=== PATIENT | male | born 1950 | race Caucasian/White ===

== ENCOUNTER 2018-08-23 06:15 | Day surgery (SDC) | payer MEDICARE ==
[2018-08-18 15:31] VITALS: BMI 39.2
[~2018-08-23 06:15] MED LIST: LACTATED RINGERS 1,000 ML IV SCH; SODIUM CHLORIDE 0.9% 1,000 ML IV SCH
[2018-08-23 07:04] VITALS: TEMP 98.1
[2018-08-23] MEDS ORDERED: PROPOFOL 10 MG/ML 20 ML VIAL IV ONE (07:16)
[2018-08-23] MEDS ORDERED: LIDOCAINE 1% INJ 10MG/ML (20 ML MDV) ONE (07:16)
[2018-08-23] MEDS ORDERED: IV FLUID CONTINUATION 900 ML IV ONE (08:00)
[2018-08-23] MEDS ORDERED: LIDOCAINE 1% (PF) 10 MG/ML (30 ML SDV) SQ ONE (08:02)
[2018-08-23] MEDS ORDERED: IOPAMIDOL-370 125ML BTL INJ ONE (08:17)
[2018-08-23] MEDS ORDERED: fentaNYL (PF) 50 MCG/ML 2 ML AMP IVP ONE (08:24)
[2018-08-23] MEDS ORDERED: RX INFO: IV CONTRAST WAS GIVEN 1 EACH MISC MISCELLANE PRN (08:26)
[2018-08-23] MEDS ORDERED: SODIUM CHLORIDE 0.9% 1,000 ML IV SCH (08:30)
--- NOTE | 2018-08-23 09:22 | ECHOT ---
TRANSESOPHAGEAL ECHOCARDIOGRAM DATE OF SERVICE: 08/23/2018 PERFORMING PHYSICIAN: Landon Lujan MD, [employer]. PROCEDURE PERFORMED: Transesophageal echocardiogram. INDICATION: This is a pleasant 68-year-old gentleman who was diagnosed recently with atrial fibrillation and the plan is to do a cardioversion on him with a transesophageal echocardiogram to rule out any left atrial appendage thrombus. COMPLICATION: None. LEVEL OF SEDATION: Deep sedation was performed with PASTRY COOK in the room. PROCEDURE DESCRIPTION: After obtaining an informed consent, explaining the procedure, benefits, risks, complications and alternatives, the patient was brought to the transesophageal echocardiogram suite. A pulse oximetry and heart rate monitors were attached to the patient prior to the procedure. The patient's throat was sprayed using lidocaine locally. Following that, the patient was turned into left lateral position. A bite guard was placed and the patient was then sedated with the above doses of Versed and fentanyl in divided doses. Following that, the transesophageal echocardiogram probe was advanced through the bite guard into the mid esophagus where 2-D echocardiogram images as well as color Doppler images of various cardiac structures were obtained. We evaluated the interatrial septum using 2-D echocardiogram, color Doppler, and contrast study. The procedure was completed. There were no complications. FINDINGS: The study was done quickly because the patient started desatting throughout the procedure and during the procedure and at the beginning of the procedure. The left ventricular dimension appeared to be within normal limits. Left ventricular systolic function seems to be mildly impaired with EF around 40%-45%. The right ventricle is severely dilated. The left atrium and right atrium are dilated. The left atrium and left atrial appendage appeared to have severe echo contrast and smoking. The interatrial septum appeared to be intact without any evidence of [id number] shunt by color-flow Doppler. The aortic valve is trileaflet valve and appeared to be thickened and calcified with evidence of mild aortic stenosis with peak gradient of about 22 mmHg. The mitral valve seems to be thickened and calcified as well with mild MR. There was mild tricuspid regurgitation seen. CONCLUSION: 1. Severe spontaneous echo contrast in the left atrium and left atrial appendage. 2. Mildly impaired left ventricular function with ejection fraction between 40%-45%. 3. Severely dilated right ventricle and right atrium. 4. Aortic sclerosis with mild stenosis and mild insufficiency. 5. Thickened mitral valve leaflets with mild to moderate mitral regurgitation. 6. Normal tricuspid valve and pulmonic valve. 7. No evidence of pericardial effusion. MMODL / IJN: [id number] /
--- NOTE | 2018-08-23 09:28 | CC ---
CARDIAC CATHETERIZATION REPORT DATE OF SERVICE: 08/23/2018 PERFORMING PHYSICIAN: Landon Lujan MD, [employer]. PROCEDURE PERFORMED: 1. Selective right and left coronary angiogram. 2. Left heart catheterization. INDICATION: This is a pleasant 68-year-old gentleman who was diagnosed recently with atrial fibrillation and underwent an echocardiogram which revealed cardiomyopathy with EF between 40%-45%. APPROACH: Right common femoral artery. COMPLICATION: None. LEVEL OF SEDATION: Moderate with sedation length of 22 minutes. PROCEDURE DESCRIPTION: After obtaining an informed consent, the patient was brought to the cardiac boot and shoe laborer. The right common femoral artery was cannulated using micropuncture technique, the micropuncture wire passed easily, then I placed a 6-Korean sheath in the right common femoral artery. After that, I did selective right and left coronary angiogram using JR4 and JL4 catheters. Left heart catheterization was performed using 6-Korean pigtail catheter. The procedure was completed without any complication. SELECTIVE CORONARY ANGIOGRAM: 1. The right coronary artery is a large caliber vessel and it is a dominant vessel. It is angiographically normal. It distally bifurcates into PDA and PLV branches, both are angiographically normal. 2. The left main is angiographically normal. It bifurcates into left circumflex and left anterior descending artery. 3. The left circumflex is a large caliber vessel. It is a codominant vessel. It is angiographically normal. In the midportion, it gives rise into a medium size OM branch and which seems to have mild disease only and the circumflex distally appeared to be angiographically normal. It bifurcates into PDA and PLV branches, both are angiographically normal. 4. The LAD, the proximal LAD appeared to be angiographically normal. It gives rise into a large diagonal branch which appeared to be normal. The mid LAD appeared to be normal and gives rise into second diagonal branch which seems to be angiographically normal and the LAD distally appeared to be normal as well. HEMODYNAMICS: The left ventricular end-diastolic was about 80 mmHg and there was about 30 mmHg peak to peak gradient. CONCLUSION: 1. Normal coronary angiogram. 2. Mild aortic stenosis. POSTPROCEDURE MANAGEMENT: 1. Maximize medical treatment. 2. Follow up with the patient. MMODL / IJN: [id number] /
[2018-08-23 12:56] VITALS: BP 143/91; PULSE 80
[2018-08-23 13:51] VITALS: RESP 16
== END 2018-08-23 13:30 | disposition home or self-care (01) ==
LOC: CATHCVL 06:15
PROVIDERS: ATTEND Internal Medicine Interventional Cardiology
DX: I48.0 Paroxysmal atrial fibrillation (principal); I08.0 Rheumatic disorders of both mitral and aortic valves; I25.10 Atherosclerotic heart disease of native coronary artery without angina pectoris; E78.5 Hyperlipidemia, unspecified; I71.2 Thoracic aortic aneurysm, without rupture; I11.0 Hypertensive heart disease with heart failure; E78.00 Pure hypercholesterolemia, unspecified; I50.20 Unspecified systolic (congestive) heart failure; E66.3 Overweight; R60.0 Localized edema; I70.0 Atherosclerosis of aorta; I42.9 Cardiomyopathy, unspecified; Z79.01 Long term (current) use of anticoagulants; Z82.49 Family history of ischemic heart disease and other diseases of the circulatory system; Z72.0 Tobacco use; Z79.899 Other long term (current) drug therapy; Z79.51 Long term (current) use of inhaled steroids; Z68.39 Body mass index [BMI] 39.0-39.9, adult
CPT/HCPCS: 93312; 93325; 93458; C1894; C1769 ×2; C1760; J2001 ×2; J3010; J2704; Q9967; 93320

== ENCOUNTER 2018-10-04 10:35 | Day surgery (SDC) | payer MEDICARE ==
[2018-09-27 11:41] VITALS: BMI 38.1
[~2018-10-04 10:35] MED LIST changes: -LACTATED RINGERS 1,000 ML IV SCH
[2018-10-04 11:08] VITALS: TEMP 97.5
--- NOTE | 2018-10-04 13:14 | CE ---
CARDIAC ELECTROPHYSIOLOGY REPORT DATE OF SERVICE: October 04, 2018 PERFORMING PHYSICIAN: Landon Lujan MD, heavy threader. PROCEDURE PERFORMED: Successful cardioversion of atrial fibrillation. COMPLICATION: None. LEVEL OF SEDATION: Deep sedation was performed with propofol and COMPUTER ASSISTANT in the room. PROCEDURE DESCRIPTION: After obtaining an informed consent, the patient was brought to the transesophageal echocardiogram suite. We did attempting doing the cardioversion using 200 joule and was unsuccessful and 300 joules and was unsuccessful. Finally the patient cardioverted from atrial fibrillation to normal sinus mechanism using 350 joule on third attempt. CONCLUSION: Successful cardioversion of atrial fibrillation to normal sinus mechanism using 350 joule on third attempt. MMODL / IJN: [id number] /
[2018-10-04 13:40] VITALS: RESP 20
[2018-10-04 14:16] VITALS: BP 107/67; PULSE 67
[2018-10-05] MEDS ORDERED: PROPOFOL 10 MG/ML 20 ML VIAL IV ONE (11:55)
[2018-10-05] MEDS ORDERED: LIDOCAINE 1% INJ 10MG/ML (20 ML MDV) ONE (11:55)
== END 2018-10-04 14:07 | disposition home or self-care (01) ==
LOC: CATHCVL 10:35
PROVIDERS: ATTEND Internal Medicine Interventional Cardiology
DX: I48.0 Paroxysmal atrial fibrillation (principal); Z99.89 Dependence on other enabling machines and devices; E78.5 Hyperlipidemia, unspecified; Z82.49 Family history of ischemic heart disease and other diseases of the circulatory system; Z72.0 Tobacco use; Z79.899 Other long term (current) drug therapy; E66.3 Overweight; I71.2 Thoracic aortic aneurysm, without rupture; I35.1 Nonrheumatic aortic (valve) insufficiency; Z79.51 Long term (current) use of inhaled steroids
CPT/HCPCS: 92960

== ENCOUNTER 2023-02-12 15:47 | Inpatient (IN) | payer MEDICARE ==
--- NOTE | 2023-02-12 16:37 | ED ---
SOB HPI - General Chief Complaint: Shortness of Breath Stated Complaint: Diff Breathing Time Seen by Provider: 02/12/23 16:00 Source: patient, EMS Mode of arrival: EMS Limitations: no limitations - History of Present Illness Initial Comments: Hemant is a 72-year-old male with history of CHF, COPD, chronic kidney disease. He presented to [facility] with a complaint of shortness of breath. Apparently one of his physicians had decreased his diuretic due to worsening kidney function, he reports he's been 20-30 pounds over the past month. This morning he felt as though he just couldn't breathe at all and when he arrived at [facility] his oxygen saturation was in the 50s. He was treated with BiPAP and breathing treatments as well as Lasix. He was able to be weaned down to nasal cannula but was transferred to our facility for further management admission for congestive heart failure exacerbation and COPD exacerbation. Patient denies any chest pain or palpitations. Of note the patient is an alcoholic reports daily drinking of 1 L of vodka he states that he does not have withdrawal symptoms on days that he does not drink when he is hospitalized. - Related Data Home Medications Medication Instructions Recorded Confirmed Albuterol Inhaler [Ventolin Hfa 1 - 2 puff INHALATION RT-Q4H PRN 08/18/18 02/12/23 Inhaler] Apixaban [Eliquis] 5 mg PO BID 08/18/18 02/12/23 Ipratropium-Albuterol Nebulize 3 ml INHALATION RT-QID PRN 08/18/18 02/12/23 [Duoneb 0.5 mg-3 mg/3 ml Soln] Metoprolol Tartrate 25 mg PO TID 08/18/18 02/12/23 Montelukast [Singulair] 10 mg PO DAILY 08/18/18 02/12/23 Atorvastatin [Lipitor] 80 mg PO DAILY 02/12/23 02/12/23 Budesonide [Pulmicort] 0.5 mg INHALATION RT-BID 02/12/23 02/12/23 Cyanocobalamin (Vitamin B-12) 1,000 mcg PO DAILY 02/12/23 02/12/23 [Vitamin B-12] Famotidine [Pepcid] 20 mg PO DAILY 02/12/23 02/12/23 Gabapentin [Neurontin] 100 mg PO BID@1300,2100 02/12/23 02/12/23 Gabapentin [Neurontin] 200 mg PO DAILY@0800 02/12/23 02/12/23 Potassium Chloride ER [K-Dur 20] 20 meq PO DAILY 02/12/23 02/12/23 allopurinoL [Zyloprim] 100 mg PO DAILY 02/12/23 02/12/23 Allergies Allergy/AdvReac Type Severity Reaction Status Date / Time No Known Allergies Allergy Verified 02/12/23 18:56 Review of Systems ROS Statement: Those systems with pertinent positive or pertinent negative responses have been documented in the HPI. ROS Other: All systems not noted in ROS Statement are negative. Past Medical History Past Medical History: Atrial Fibrillation, Heart Failure, COPD, Sleep Apnea/CPAP/BIPAP Additional Past Medical History / Comment(s): See Dr River H&P. CPAP use. CHF History of Any Multi-Drug Resistant Organisms: None Reported Past Surgical History: Heart Catheterization Additional Past Surgical History / Comment(s): Bilateral cataract surgery, ganglion cyst removed, EGD. Past Anesthesia/Blood Transfusion Reactions: No Reported Reaction Past Psychological History: No Psychological Hx Reported Smoking Status: Former smoker Past Alcohol Use History: Daily Past Drug Use History: None Reported - Past Family History Mother Family Medical History: Cancer Father Family Medical History: Cancer General Exam - General Exam Comments Initial Comments: Physical Exam GENERAL: Obese male, belly breathing HENT: Normocephalic, Atraumatic. Antonio red complexion, rhinophyma EYES: PERRL, EOMI PULMONARY: Tachypnic, shallow breathing, belly breathing CARDIOVASCULAR: Irregularly irregular ABDOMEN: Protuberant, non-tender SKIN: Pale : Deferred NEUROLOGIC: Patient is alert and oriented x3. Moving all extremities spontaneously MUSCULOSKELETAL: Normal extremities with adequate strength and full range of motion. No lower extremity swelling or edema. No calf tenderness. PSYCHIATRIC: Normal psychiatric evaluation. Limitations: no limitations Course Vital Signs 02/12/23 02/12/23 02/12/23 15:51 16:01 17:06 Temperature 97.6 F Pulse Rate 82 97 Respiratory 22 22 20 Rate Blood Pressure 101/84 102/84 O2 Sat by Pulse 92 L 90 L Oximetry 02/12/23 02/12/23 18:18 18:27 Temperature 97.6 F Pulse Rate 99 Respiratory 19 Rate Blood Pressure 108/90 O2 Sat by Pulse 82 L 90 L Oximetry Medical Decision Making - Medical Decision Making Pt was seen and evaluated, transfer packet from [facility] was reviewed patient appears to be a CHF exacerbation likely related to the decrease in his diuretic Patient on 6L NC oxygen saturations low 90s Repeat labs obtained, again consistent with CHF Patient care discussed with Dr Barriga of [facility] who accepts admission Was pt. sent in by a medical professional or institution (, PA, TYPIST, urgent care, hospital, or senior care...) When possible be specific @ Yes, transfer from [facility] Did you speak to anyone other than the patient for history (EMS, parent, family, police, friend...)? What history was obtained from this source @ Transferring physician Did you review nursing and triage notes (agree or disagree)? Why? @ -I reviewed and agree with nursing and triage notes Were old charts reviewed (outside hosp., previous admission, EMS record, old EKG, old radiological studies, urgent care reports/EKG's, senior care records)? Report findings @ Transfer chart reviewed Differential Diagnosis (chest pain, altered mental status, abdominal pain women, abdominal pain men, vaginal bleeding, weakness, fever, dyspnea, syncope, headache, dizziness, GI bleed, back pain, seizure, CVA, palpatations, mental health, musculoskeletal)? @ Differential Dyspnea: Coronary syndrome, arrhythmia, tamponade, asthma, COPD, pulmonary embolism, pneumonia, pneumothorax, pulmonary effusion, anaphylaxis, diabetic ketoacidosis, flailed chest, pulmonary contusion, diaphragmatic rupture, anemia, neuromuscular, this is not meant to be an all-inclusive list. EKG interpreted by me (3pts min.). @ EKG obtained as part of the shortness of breath workup EKG obtained at 1703 rate is 97 rhythm at his wide-complex irregularly irregular consistent with a [address] delay. No ST elevations or depressions no evidence of ischemia or infarction. X-rays interpreted by me (1pt min.). @ None done at this facility CT interpreted by me (1pt min.). @ -None done U/S interpreted by me (1pt. min.). @ -None done What testing was considered but not performed or refused? (CT, X-rays, U/S, labs)? Why? @ -None What meds were considered but not given or refused? Why? @ -None Did you discuss the management of the patient with other professionals (professionals i.e. , PA, TYPIST, lab, RT, psych nurse, healthcare social worker, rollway worker, teacher, sailing officer, nurse outreach case manager)? Give summary @ Admitting physician Was smoking cessation discussed for >3mins.? @ -No Was critical care preformed (if so, how long)? @ -No Were there social determinants of health that impacted care today? How? (Homelessness, low income, unemployed, alcoholism, drug addiction, transportation, low edu. Level, literacy, decrease access to med. care, group home, rehab)? @ Alcoholism Was there de-escalation of care discussed even if they declined (Discuss DNR or withdrawal of care, Hospice)? DNR status @ -No What co-morbidities impacted this encounter? (DM, HTN, Smoking, COPD, CAD, Cancer, CVA, ARF, Chemo, Hep., AIDS, mental health diagnosis, sleep apnea, morbid obesity)? @ CHF, COPD, Alcoholism Was patient admitted / discharged? Hospital course, mention meds given and route, prescriptions, significant lab abnormalities, going to OR and other pertinent info. @ Admitted Undiagnosed new problem with uncertain prognosis? @ -No Drug Therapy requiring intensive monitoring for toxicity (Heparin, Nitro, Insulin, Cardizem)? @ -No Were any procedures done? @ -No Diagnosis/symptom? @ CHF exacerbation Acute, or Chronic, or Acute on Chronic? @ -default Uncomplicated (without systemic symptoms) or Complicated (systemic symptoms)? @ -default Side effects of treatment? @ -No Exacerbation, Progression, or Severe Exacerbation? @ Exacerbation Poses a threat to life or bodily function? How? (Chest pain, [place], [place], pneumonia, PE, COPD, DKA, ARF, appy, cholecystitis, CVA, Diverticulitis, Homicidal, Suicidal, threat to staff... and all critical care pts) @ Yes - Lab Data Result diagrams: 02/12/23 16:35 02/12/23 16:35 Lab Results 02/12/23 02/12/23 02/12/23 Range/Units 16:35 16:35 16:35 WBC 6.4 (3.8-10.6) k/uL RBC 5.06 (4.30-5.90) m/uL Hgb 16.9 (13.0-17.5) gm/dL Hct 55.2 H (39.0-53.0) % MCV 109.2 H (80.0-100.0) fL MCH 33.4 (25.0-35.0) pg MCHC 30.6 L (31.0-37.0) g/dL RDW 14.3 (11.5-15.5) % Plt Count 136 L (150-450) k/uL MPV 9.8 Neutrophils % 84 % Lymphocytes % 11 % Monocytes % 4 % Eosinophils % 1 % Basophils % 0 % Neutrophils # 5.3 (1.3-7.7) k/uL Lymphocytes # 0.7 L (1.0-4.8) k/uL Monocytes # 0.2 (0-1.0) k/uL Eosinophils # 0.1 (0-0.7) k/uL Basophils # 0.0 (0-0.2) k/uL Manual Slide Review Performed Hypochromasia Marked Macrocytosis Marked A PT 12.3 H (9.0-12.0) sec INR 1.2 H (<1.2) APTT 29.9 (22.0-30.0) sec Sodium 140 (137-145) mmol/L Potassium 5.9 H (3.5-5.1) mmol/L Chloride 106 (98-107) mmol/L Carbon Dioxide 25 (22-30) mmol/L Anion Gap 9 mmol/L BUN 83 H (9-20) mg/dL Creatinine 2.93 H (0.66-1.25) mg/dL Est GFR (CKD-EPI)AfAm 24 (>60 ml/min/1.73 sqM) Est GFR (CKD-EPI)NonAf 20 (>60 ml/min/1.73 sqM) Glucose 86 (74-99) mg/dL Plasma Lactic Acid Michael (0.7-2.0) mmol/L Calcium 10.0 (8.4-10.2) mg/dL Magnesium 2.4 H (1.6-2.3) mg/dL Total Bilirubin 1.0 (0.2-1.3) mg/dL AST 27 (17-59) U/L ALT 18 (4-49) U/L Alkaline Phosphatase 94 (38-126) U/L Troponin I (0.000-0.034) ng/mL NT-Pro-B Natriuret Pep 68905 pg/mL Total Protein 7.5 (6.3-8.2) g/dL Albumin 3.9 (3.5-5.0) g/dL 02/12/23 02/12/23 Range/Units 16:35 16:35 WBC (3.8-10.6) k/uL RBC (4.30-5.90) m/uL Hgb (13.0-17.5) gm/dL Hct (39.0-53.0) % MCV (80.0-100.0) fL MCH (25.0-35.0) pg MCHC (31.0-37.0) g/dL RDW (11.5-15.5) % Plt Count (150-450) k/uL MPV Neutrophils % % Lymphocytes % % Monocytes % % Eosinophils % % Basophils % % Neutrophils # (1.3-7.7) k/uL Lymphocytes # (1.0-4.8) k/uL Monocytes # (0-1.0) k/uL Eosinophils # (0-0.7) k/uL Basophils # (0-0.2) k/uL Manual Slide Review Hypochromasia Macrocytosis PT (9.0-12.0) sec INR (<1.2) APTT (22.0-30.0) sec Sodium (137-145) mmol/L Potassium (3.5-5.1) mmol/L Chloride (98-107) mmol/L Carbon Dioxide (22-30) mmol/L Anion Gap mmol/L BUN (9-20) mg/dL Creatinine (0.66-1.25) mg/dL Est GFR (CKD-EPI)AfAm (>60 ml/min/1.73 sqM) Est GFR (CKD-EPI)NonAf (>60 ml/min/1.73 sqM) Glucose (74-99) mg/dL Plasma Lactic Acid Michael 0.8 (0.7-2.0) mmol/L Calcium (8.4-10.2) mg/dL Magnesium (1.6-2.3) mg/dL Total Bilirubin (0.2-1.3) mg/dL AST (17-59) U/L ALT (4-49) U/L Alkaline Phosphatase (38-126) U/L Troponin I <0.012 (0.000-0.034) ng/mL NT-Pro-B Natriuret Pep pg/mL Total Protein (6.3-8.2) g/dL Albumin (3.5-5.0) g/dL Disposition Clinical Impression: CHF (congestive heart failure), Hypoxia, COPD (chronic obstructive pulmonary disease), Morbid obesity, Alcohol abuse Disposition: ADMITTED IP TO THIS HOSP Condition: Serious Is patient prescribed a controlled substance at d/c from ED?: No
[2023-02-12 17:10] LABS: INR 1.2 (<1.2); Partial Thromboplastin Time 29.9 sec (22.0-30.0); Prothrombin Time 12.3 sec (9.0-12.0)
[2023-02-12 17:14] LABS: ALT 18 U/L (4-49); AST 27 U/L (17-59); African American GFR (CKD) 24 (>60 ml/min/1.73 sqM); Albumin 3.9 g/dL (3.5-5.0); Alkaline Phosphatase 94 U/L (38-126); Anion Gap 9 mmol/L; Blood Urea Nitrogen 83 mg/dL (9-20); Carbon Dioxide 25 mmol/L (22-30); Chloride 106 mmol/L (98-107); Glucose 86 mg/dL (74-99); Magnesium 2.4 mg/dL (1.6-2.3); Non-African American GFR(CKD) 20 (>60 ml/min/1.73 sqM); Sodium 140 mmol/L (137-145); Total Protein 7.5 g/dL (6.3-8.2)
[2023-02-12 17:16] LABS: Basophils % (A) 0 %; Eosinophils # (A) 0.1 k/uL (0-0.7); Eosinophils % (A) 1 %; HGB 16.9 gm/dL (13.0-17.5); Hypochromasia Marked; Lymphocytes # (A) 0.7 k/uL (1.0-4.8); Lymphocytes % (A) 11 %; MCH 33.4 pg (25.0-35.0); MCHC 30.6 g/dL (31.0-37.0); MCV 109.2 fL (80.0-100.0); Macrocytosis Marked; Mean Platelet Volume 9.8; Monocytes # (A) 0.2 k/uL (0-1.0); Monocytes % (A) 4 %; Neutrophils # (A) 5.3 k/uL (1.3-7.7); Neutrophils % (A) 84 %; Platelet Count 136 k/uL (150-450); RBC 5.06 m/uL (4.30-5.90); RDW 14.3 % (11.5-15.5); WBC 6.4 k/uL (3.8-10.6)
[2023-02-12 17:17] LABS: HCT 55.2 % (39.0-53.0); Potassium 5.9 mmol/L (3.5-5.1)
[2023-02-12 17:22] LABS: NT-Pro-B-Type Natriuretic Pept 16100 pg/mL
[2023-02-12] MEDS ORDERED: ACETAMINOPHEN TAB 325 MG TAB PO PRN (20:31)
[2023-02-12] MEDS ORDERED: LORazepam 2 MG/ML INJ IV PRN (20:33)
[2023-02-12] MEDS: LORazepam 2 MG/ML INJ IV PRN (21:10)
[2023-02-12] MEDS: METOPROLOL TARTRATE 25 MG TAB PO SCH (21:10)
[2023-02-12] MEDS: APIXABAN 5 MG TAB PO SCH (21:10)
[2023-02-12] MEDS: IPRATROPIUM-ALBUTEROL 3 ML NEB INHALATION PRN (21:12)
[2023-02-12] MEDS: GABAPENTIN 100 MG CAP PO SCH (21:39)
[2023-02-12] MEDS ORDERED: DEXTROSE 50% SYRINGE 50 ML IVP STA (22:03)
[2023-02-12] MEDS ORDERED: SODIUM POLYSTYRENE SULFONATE 15 GM/60 ML BOTTLE PO ONE (22:04)
[2023-02-12] MEDS ORDERED: CALCIUM GLUCONATE IN NACL 1 GM in SALINE 1 100ML.BAG IVPB ONE (22:15)
[2023-02-12] MEDS ORDERED: INSULIN REGULAR 100 UNIT/ML VIAL (IV) IV ONE (22:15)
[2023-02-12 23:04] LABS: Allen Test Performed? Yes
[2023-02-12 23:09] LABS: ABG HCO3 27 mmol/L (21-25); ABG PCO2 73 mmHg (35-45); ABG PH 7.17 (7.35-7.45); ABG PO2 111 mmHg (83-108)
[2023-02-12 23:10] LABS: ABG Oxygen Saturation 97.6 % (94-97); ABG TCO2 29 mmol/L (19-24)
[2023-02-12 23:38] LABS: Glucose,Whole Blood 166 mg/dL (70-110)
[2023-02-12] MEDS ORDERED: methylPREDNISolone SOD SUCCI 125 MG/2 ML VIAL IV STA (23:51)
[2023-02-13 00:03] LABS: Glucose,Whole Blood 182 mg/dL (70-110)
[2023-02-13] MEDS: FUROSEMIDE 10 MG/ML 4 ML VIAL IV SCH ×2 (00:12→09:04)
--- NOTE | 2023-02-13 00:33 | XR ---
EXAM: XR Chest, 1 View CLINICAL HISTORY: ITS.REASON XR Reason: Resp distress TECHNIQUE: Frontal view of the chest. COMPARISON: No relevant prior studies available. FINDINGS: Lungs: Vascular congestion. Pleural space: Unremarkable. No pneumothorax. No pleural effusions. Heart: Moderate enlargement of the cardiac silhouette. Mediastinum: Unremarkable. Bones/joints: No acute osseous abnormalities. IMPRESSION: 1. Moderate enlargement of the cardiac silhouette. 2. Vascular congestion.
[2023-02-13] MEDS ORDERED: FUROSEMIDE 10 MG/ML 4 ML VIAL IV STA (00:52)
[2023-02-13 02:09] LABS: ABG Base Excess -1.4 mmol/L; ABG HCO3 27 mmol/L (21-25); ABG Oxygen Saturation 92.8 % (94-97); ABG PCO2 70 mmHg (35-45); ABG PO2 78 mmHg (83-108); ABG TCO2 29 mmol/L (19-24); Allen Test Performed? Yes
[2023-02-13 02:12] LABS: ABG PH 7.19 (7.35-7.45)
[2023-02-13] MEDS: LORazepam 2 MG/ML INJ IV PRN ×2 (02:26→08:03)
--- NOTE | 2023-02-13 02:32 | P.EN ---
A team note Activated at 2329 on 02/12. The patient was seen and evaluated at the bedside. The chart was reviewed and the case was discussed with the RN. The patient with an extensive PMH including COPD, CHF, chronic kidney disease was transferred from [facility] where the patient had presented with shortness of breath. The patient was noted to be in fluid overload and was treated with Lasix and started on BiPAP and was subsequently weaned off to nasal cannula oxygen upon transfer. Upon arrival at the floor, the patient was noted to be hypoxic and lethargic. ABG was obtained and reviewed which revealed a pCO2 73, a pH 7.17, and pO2 111. ProBNP was 16,100. Vitals at the time of evaluation were BP 115/90, SpO2 96% on BiPAP, and pulse 84. The patient was lethargic at the time of interview and was not answering most questions appropriately. General: Somewhat ill-appearing male, on BiPAP, appears stated age, morbidly obese HEENT: NC/AT, anicteric sclerae, moist conjunctiva, no lid-lag, PERRLA Cardiovascular: S1/S2 wnl, no murmurs, rubs, or gallops Lungs: Poor air entry bilaterally with scattered coarse breath sounds, no accessory muscle use Abdominal: Soft, non-tender, non-distended, no guarding, rebound, or rigidity Skin: Warm, dry Extremities: 1+ bilateral lower extremity pitting edema without contractures Psychiatric:Unable to assess Neuro: Lethargic, opening eyes and following basic directions but not answering questions appropriately, moving all extremities Assessment/Plan Acute hypoxic and hypercapnic respiratory failure, likely multifactorial secondary to acute COPD and CHF exacerbations -Additional dose of 40 mg IVP lasix ordered -Ordered Solu-medrol 80 mg IVP once -C/w Bipap -The case was previously discussed with scale balancer by RN and the patient was accepted to MICU -Patient is full-code as per RN and her discussion with the patient's -Repeat ABG and consider intubation if mentation or respiratory status doesn't improve Total time spent providing critical care for this patient: 35 minutes
[2023-02-13 06:56] LABS: HGB 16.5 gm/dL (13.0-17.5); Hypochromasia Marked; MCHC 29.9 g/dL (31.0-37.0); MCV 110.3 fL (80.0-100.0); Macrocytosis Marked; Mean Platelet Volume 9.4; RBC 4.99 m/uL (4.30-5.90); RDW 14.1 % (11.5-15.5); WBC 7.8 k/uL (3.8-10.6)
[2023-02-13 06:57] LABS: HCT 55.1 % (39.0-53.0)
[2023-02-13 07:17] LABS: African American GFR (CKD) 24 (>60 ml/min/1.73 sqM); Anion Gap 11 mmol/L; Blood Urea Nitrogen 88 mg/dL (9-20); Calcium 10.4 mg/dL (8.4-10.2); Carbon Dioxide 21 mmol/L (22-30); Chloride 110 mmol/L (98-107); Glucose 146 mg/dL (74-99); Non-African American GFR(CKD) 21 (>60 ml/min/1.73 sqM); Sodium 142 mmol/L (137-145)
[2023-02-13] MEDS: BUDESONIDE 0.5 MG/2 ML NEBU INHALATION SCH ×2 (07:43→20:03)
[2023-02-13] MEDS: IPRATROPIUM-ALBUTEROL 3 ML NEB INHALATION PRN ×4 (07:43→20:03)
--- NOTE | 2023-02-13 08:27 | P.CNPUL ---
History of Present Illness Consult date: 02/13/23 Reason for consult: dyspnea History of present illness: This is a 72-year-old male patient, morbidly obese, known history of COPD, congestion heart failure, chronic atrial fibrillation and chronic kidney disease, presented to us from [facility]. The patient presented there with increased shortness of breath. Apparently the patient has not been taking his diuretics this has been discontinued due to concerns of his renal dysfunction. The patient went to [facility] and subsequently transferred to us, admitted to the medical floor, he was found to be quite lethargic in significant respiratory distress. He was placed on a BiPAP of 16/6 cm of water and FiO2 of 40%. The blood gas prior to that showed a pH of 7.17 wi th a pCO2 of 73 and pO2 of 111. Subsequent blood gas from 2 AM showed a pH of 7.19 with a pCO2 of 70 and pO2 of 78. Chest x-ray shows cardiac megaly, pulmonary vessel congestion and no clear airspace disease or pulmonary infiltrates noted. The patient has quite encephalopathic and lethargic at this point in time. He is status with the BiPAP. He is generating a tidal volume of 462 with a respiratory rate of 23. Minute ventilation is around 10.8. His blood work shows a WD count of 7.8 with a hemoglobin 16.5 and a platelet count of 136. BUN is at 28 with a creatinine of 2.8 and the sodium levels of 142. Potassium level was as high as 6.4, treated with potassium cocktail and the subsequent level today is at 6.0. Calcium level is mildly elevated at 10.4. LFTs are normal, proBNP level is 16,100 and the troponins are negative. EKG showing a atrial fibrillation rhythm with a right bundle branch block pattern. Noted the patient has been maintained on anticoagulation with Eliquis on outpatient basis and I'm assuming this was given to him for chronic atrial fibrillation. He does have asymmetric lower extremity edema worse on the left. He has a Ogrdon catheter in place. He is also known to be alcoholic. He has stated that he really paralyzed on a daily basis. He was also stated that he goes into withdrawal was while not drinking for few days. Overnight, the patient was given IV Lasix. He is still on Lasix 40 mg IV every 8 hours. He is producing adequate amount of urine output. Urine output has been -1.4 L over the past 8 hours. Review of Systems ROS unobtainable: due to mental status Past Medical History Past Medical History: Atrial Fibrillation, Heart Failure, COPD, GI Bleed, Renal Disease, Sleep Apnea/CPAP/BIPAP Additional Past Medical History / Comment(s): Hiatal hernia, cateracts, diverticulosis, CPAP use, Falls, History of Any Multi-Drug Resistant Organisms: None Reported Past Surgical History: Heart Catheterization Additional Past Surgical History / Comment(s): Bilateral cataract surgery, ganglion cyst removed, EGD/colonoscopy, cardioversion Past Anesthesia/Blood Transfusion Reactions: No Reported Reaction Past Psychological History: No Psychological Hx Reported Smoking Status: Former smoker Past Alcohol Use History: Daily Additional Past Alcohol Use History / Comment(s): Quit just over 1 yr ago, smoked 40 yrs, 1PPD or more. Past Drug Use History: None Reported - Past Family History Mother Family Medical History: Cancer Father Family Medical History: Cancer, Myocardial Infarction ([place]) Medications and Allergies Home Medications Medication Instructions Recorded Confirmed Type Albuterol Inhaler [Ventolin Hfa 1 - 2 puff INHALATION RT-Q4H PRN 08/18/18 02/12/23 History Inhaler] Apixaban [Eliquis] 5 mg PO BID 08/18/18 02/12/23 History Ipratropium-Albuterol Nebulize 3 ml INHALATION RT-QID PRN 08/18/18 02/12/23 History [Duoneb 0.5 mg-3 mg/3 ml Soln] Metoprolol Tartrate 25 mg PO TID 08/18/18 02/12/23 History Montelukast [Singulair] 10 mg PO DAILY 08/18/18 02/12/23 History Atorvastatin [Lipitor] 80 mg PO DAILY 02/12/23 02/12/23 History Budesonide [Pulmicort] 0.5 mg INHALATION RT-BID 02/12/23 02/12/23 History Cyanocobalamin (Vitamin B-12) 1,000 mcg PO DAILY 02/12/23 02/12/23 History [Vitamin B-12] Famotidine [Pepcid] 20 mg PO DAILY 02/12/23 02/12/23 History Gabapentin [Neurontin] 100 mg PO BID@1300,2100 02/12/23 02/12/23 History Gabapentin [Neurontin] 200 mg PO DAILY@00 02/12/23 02/12/23 History Potassium Chloride ER [K-Dur 20] 20 meq PO DAILY 02/12/23 02/12/23 History allopurinoL [Zyloprim] 100 mg PO DAILY 02/12/23 02/12/23 History Allergies Allergy/AdvReac Type Severity Reaction Status Date / Time No Known Allergies Allergy Verified 02/12/23 18:56 Physical Exam Vitals: Vital Signs Temp Pulse Pulse Resp BP BP Pulse Ox 02/13/23 08:03 71 02/13/23 08:00 96.4 F L 78 25 H 103/75 94 L 02/13/23 07:43 68 02/13/23 07:00 66 20 103/75 94 L 02/13/23 06:00 80 27 H 129/97 85 L 02/13/23 05:00 76 23 107/96 89 L 02/13/23 04:00 97.3 F L 80 23 108/84 91 L 02/13/23 03:56 02/13/23 03:00 85 26 H 118/91 92 L 02/13/23 02:00 94 12 110/85 90 L 02/13/23 01:00 79 14 107/85 81 L 02/13/23 00:05 02/12/23 23:02 22 97 02/12/23 23:01 25 H 88 L 02/12/23 22:13 02/12/23 22:12 02/12/23 21:33 80 02/12/23 21:15 88 02/12/23 20:00 97.7 F 90 30 H 116/79 86 L 02/12/23 18:45 97.9 F 109 H 24 96/60 90 L 02/12/23 18:27 90 L 02/12/23 18:18 97.6 F 99 19 108/90 82 L 02/12/23 17:06 97 20 102/84 90 L 02/12/23 16:01 22 02/12/23 15:51 97.6 F 82 22 101/84 92 L FiO2 02/13/23 08:03 02/13/23 08:00 40 02/13/23 07:43 40 02/13/23 07:00 02/13/23 06:00 02/13/23 05:00 02/13/23 04:00 40 02/13/23 03:56 40 02/13/23 03:00 02/13/23 02:00 40 02/13/23 01:00 02/13/23 00:05 40 02/12/23 23:02 60 02/12/23 23:01 02/12/23 22:13 60 02/12/23 22:12 60 02/12/23 21:33 02/12/23 21:15 02/12/23 20:00 02/12/23 18:45 02/12/23 18:27 02/12/23 18:18 02/12/23 17:06 02/12/23 16:01 02/12/23 15:51 Intake and Output 02/12/23 02/13/23 02/13/23 22:59 06:59 14:59 Output Total 350 1070 145 Balance -350 -1070 -145 Output: Urine 350 1070 145 Other: Voiding Method External Catheter Indwelling Catheter # Bowel Movements 2 Weight 145.15 kg 143.8 kg The patient is currently encephalopathic, lethargic, there is an obvious component of CO2 narcosis. Nevertheless, is calm and comfortable and symptoms with a BiPAP at this point in time and is tolerating the treatment fairly well. He is morbidly obese. Head exam was generally normal. There was no scleral icterus or corneal arcus. Mucous membranes were moist. Neck is short and the patient has significant crowding of the posterior oropharynx, poor dental condition, crowding of the posterior oropharynx with a Mallampati class IV Lungs diminished breath sounds bilaterally and the patient diffuse expiratory wheezes throughout the lung dumont Heart sounds are irregular, consistent with atrial fibrillation, no significant murmurs appreciated Abdomen is distended and soft. No direct tenderness. No rebound tenderness. No guarding. Lower extremities are showed +1 edema, asymmetric slightly worse on the left, no open wounds or sores. No cyanosis or clubbing. Examination of the skin revealed no evidence of significant rashes, suspicious appearing nevi or other concerning lesions. Neurologically the patient is encephalopathic, moving all 4 extremities and g rimacing to painful stimulation. Unable to answer questions appropriately at this point in time. He was unable reactive to light. No facial asymmetry. Results - Laboratory Findings CBC and BMP: 02/13/23 06:44 02/13/23 06:44 ABG ABG pH 7.19 (7.35-7.45) L* 02/13/23 02:02 ABG pCO2 70 mmHg (35-45) H 02/13/23 02:02 ABG pO2 78 mmHg (83-108) L 02/13/23 02:02 ABG O2 Saturation 92.8 % (94-97) L 02/13/23 02:02 PT/INR, D-dimer PT 12.3 sec (9.0-12.0) H 02/12/23 16:35 INR 1.2 (<1.2) H 02/12/23 16:35 Abnormal lab findings: Abnormal Labs 02/12/23 02/12/23 02/12/23 16:35 16:35 16:35 Hct 55.2 H MCV 109.2 H MCHC 30.6 L Plt Count 136 L Lymphocytes # 0.7 L Macrocytosis Marked A PT 12.3 H INR 1.2 H ABG pH ABG pCO2 ABG pO2 ABG HCO3 ABG Total CO2 ABG O2 Saturation Potassium 5.9 H Chloride Carbon Dioxide BUN 83 H Creatinine 2.93 H Glucose POC Glucose (mg/dL) Calcium Magnesium 2.4 H 02/12/23 02/12/23 02/12/23 21:13 22:45 23:28 Hct MCV MCHC Plt Count Lymphocytes # Macrocytosis PT INR ABG pH 7.17 L* ABG pCO2 73 H* ABG pO2 111 H ABG HCO3 27 H ABG Total CO2 29 H ABG O2 Saturation 97.6 H Potassium 6.4 H* Chloride Carbon Dioxide BUN Creatinine Glucose POC Glucose (mg/dL) 166 H Calcium Magnesium 02/13/23 02/13/23 02/13/23 00:02 02:02 02:03 Hct MCV MCHC Plt Count Lymphocytes # Macrocytosis PT INR ABG pH 7.19 L* ABG pCO2 70 H ABG pO2 78 L ABG HCO3 27 H ABG Total CO2 29 H ABG O2 Saturation 92.8 L Potassium 5.7 H Chloride Carbon Dioxide BUN Creatinine Glucose POC Glucose (mg/dL) 182 H Calcium Magnesium 02/13/23 02/13/23 06:44 06:44 Hct 55.1 H MCV 110.3 H MCHC 29.9 L Plt Count Lymphocytes # Macrocytosis Marked A PT INR ABG pH ABG pCO2 ABG pO2 ABG HCO3 ABG Total CO2 ABG O2 Saturation Potassium 6.0 H Chloride 110 H Carbon Dioxide 21 L BUN 88 H Creatinine 2.89 H Glucose 146 H POC Glucose (mg/dL) Calcium 10.4 H Magnesium - Diagnostic Findings Chest x-ray: image reviewed Assessment and Plan Plan: Acute on chronic hypoxic/hypercapnic respiratory failure due to COPD/CHF exacerbation. The patient is currently on a BiPAP. Blood gases showing acute on top of chronic hypercapnic respiratory failure Shortness of breath secondary to above COPD, chronic, severity is not known. Suspect chronic hypoxemia related to COPD CHF with elevated proBNP level. Consider possibility of diastolic heart failure, consider possibility of a right-sided heart failure due to chronic COPD features of obstructive sleep apnea Morbid obesity Chronic A. fib, rate is controlled for now and the patient is on anti- coagulation with Eliquis. Chronic kidney disease Acute hyperkalemia, treated and the potassium levels at 6.0 Alcoholism Chronic lower extremity edema, asymmetric Features of obstructive sleep apnea Hyperlipidemia Alcoholism Plan Continue BiPAP support for now May use Precedex if there is significant agitation and will avoid Ativan if possible and use Precedex for any signs of delirium tremens Continue BiPAP for now the same setting This was an arterial line and obtain a follow-up blood gases Give the patient 2 A of sodium bicarb and this will help also with his underlying hyperkalemia Continue DuoNeb about treatments [id number] Continue Pulmicort Respules IV Solu-Medrol 60 mg every 6 hours IV Lasix 40 mg every 8 hours Keep the Gordon catheter in place and monitor urine output Obtain ultrasound the kidneys Obtain Doppler of the lower extremities No need for antibiotic coverage at this point in time Obtain echocardiogram Cardiology consultation Unable to take any oral medications for now. We'll switch this patient on IV heparin if he is unable to take his anticoagulation We'll establish a triple-lumen catheter Condition is critical and high risk for intubation mechanical ventilation based on the above-mentioned comorbidities. Add thiamine 100 mg IV every 24 hours the form of IV piggybacks
[2023-02-13] MEDS ORDERED: SODIUM BICARB 8.4% 50 ML SYR (1 MEQ/ML) IV STA ×2 (08:30→08:45)
[2023-02-13 08:46] LABS: Platelet Count 97 k/uL (150-450)
[2023-02-13] MEDS: DEXMEDETOMIDINE/0.9% NACL(PMX) 400 MCG in EMPTY BAG 1 BAG IV SCH ×3 (08:49→22:12)
[2023-02-13] MEDS ORDERED: THIAMINE 100 MG TAB PO SCH (09:00)
[2023-02-13] MEDS ORDERED: FOLIC ACID 1 MG TAB PO SCH (09:00)
--- NOTE | 2023-02-13 09:24 | US ---
EXAMINATION TYPE: US kidneys/renal and bladder DATE OF EXAM: 02/13/2023 COMPARISON: NONE CLINICAL INDICATION: Male, 72 years old with history of CKD; Uncooperative ICU patient, does not foll ow commands, does not hold still, pulling at techs hand during exam EXAM MEASUREMENTS: Right Kidney: 12.7 x 5.5 x 6.7 cm Left Kidney: 13.1 x 5.4 x 7.4 cm Right Kidney: probable small cysts, largest = 2.4 x 2.9 x 2.7cm Left Kidney: limited view due to reasons stated above, cyst = 3.6 x 3.0 x 2.6cm Bladder: not distended There is no evidence for hydronephrosis at this point in time. Cortical medullary differentiation is maintained. No nephrolithiasis is seen. Left renal cyst measuring up to 3.6 cm. Small probable cysts in the right kidney measuring up to 2.9 cm per The urinary bladder is nondistended which limits eval uation. Ascites demonstrated. IMPRESSION: Limited examination due to patient condition. 1. No hydronephrosis or nephrolithiasis definitively visualized. 2. Bilateral probable renal cysts. 3. Ascites.
[2023-02-13] MEDS: GABAPENTIN 100 MG CAP PO SCH ×3 (09:31→21:24)
[2023-02-13] MEDS: allopurinoL 100 MG TAB PO SCH (09:31)
[2023-02-13] MEDS: ATORVASTATIN 80 MG TAB PO SCH (09:32)
[2023-02-13] MEDS: APIXABAN 5 MG TAB PO SCH ×2 (09:32→21:23)
[2023-02-13] MEDS: METOPROLOL TARTRATE 25 MG TAB PO SCH (09:32)
[2023-02-13] MEDS: MONTELUKAST 10 MG TAB PO SCH (09:32)
[2023-02-13] MEDS: FAMOTIDINE 20 MG TAB PO SCH (09:32)
[2023-02-13] MEDS: MULTIVITAMINS, THERA 1 EACH TAB PO SCH (09:33)
--- NOTE | 2023-02-13 09:35 | US ---
EXAMINATION TYPE: US venous doppler duplex LE DATE OF EXAM: 02/13/2023 9:14 AM COMPARISON: NONE CLINICAL INDICATION: Male, 72 years old with history of DVT; CHF, swollen legs, uncooperative patient , would not hold still and fighting tech during exam SIDE PERFORMED: Bilateral TECHNIQUE: The lower extremity deep venous system is examined utilizing real time linear array sonog francine with graded compression, doppler sonography and color-flow sonography. VESSELS IMAGED: Common Femoral Vein Deep Femoral Vein Greater Saphenous Vein * Femoral Vein Popliteal Vein Small Saphenous Vein * Proximal Calf Veins (* superficial vessels) Grayscale, color doppler, spectral doppler imaging performed of the deep veins of the lower extremiti es. There is normal flow, compressibility, vascular waveforms. Right Leg: Negative for DVT Left Leg: Negative for DVT IMPRESSION: No deep venous thrombosis of the bilateral lower extremities.
[2023-02-13] MEDS: THIAMINE 100 MG in SODIUM CHLORIDE 0.9% 50 ML IVPB SCH (09:45)
--- NOTE | 2023-02-13 10:15 | P.PCN ---
Date of Procedure: 02/13/23 Preoperative Diagnosis: Acute CHF, hypotension, chronic atrial fibrillation Postoperative Diagnosis: Same Procedure(s) Performed: Central line and arterial line Pathology: none sent Condition: critical Disposition: ICU Operative Findings: Indication: Hemodynamic monitoring. A time-out was completed verifying correct patient, procedure, site, positioning, and implant(s) or special equipment if applicable. Allens test was performed to ensure adequate perfusion. The patients right wrist was prepped and draped in sterile fashion. 1% Lidocaine was used to anesthetize the area. An 18G Arrow arterial line was introduced into the right radial artery. The catheter was threaded over the guide wire and the needle was removed with appropriate pulsatile blood return. Blood loss was minimal. The catheter was then sutured in place to the skin and a sterile dressing applied. Perfusion to the extremity distal to the point of catheter insertion was checked and found to be adequate. The patient tolerated the procedure well and there were no complications. Indication: Hemodynamic monitoring/Intravenous access. A time-out was completed verifying correct patient, procedure, site, positioning, and implant(s) or special equipment if applicable. The patient was placed in a dependent position appropriate for central line placement based on the vein to be cannulated. The patients right groin was prepped and draped in sterile fashion. 1% Lidocaine was used to anesthetize the surrounding skin area. A triple lumen 9F Cordis catheter was introduced into the right femoral vein using Seldinger technique. The catheter was threaded smoothly over the guide wire and appropriate blood return was obtained. Each lumen of the catheter was evacuated of air and flushed with sterile saline. The catheter was then sutured in place to the skin and a sterile dressing applied. Perfusion to the extremity distal to the point of catheter insertion was checked and found to be adequate. The patient tolerated the procedure well and there were no complications.
--- NOTE | 2023-02-13 10:20 | CONS ---
CONSULTATION HISTORY OF PRESENT ILLNESS: Hemant is a 72-year-old gentleman with morbid obesity, COPD, chronic atrial fibrillation, renal insufficiency, and congestive heart failure who presented to [facility] with symptoms of progressively worsening shortness of breath. The patient was treated with diuretics, and there was worsening renal function due to which the diuretics were stopped. He was initially admitted to the medical floor, became lethargic and developed respiratory distress following which he is transferred to ICU where he is currently on a bypass. He is somewhat obtunded and not responding to questions this morning and he is not able to swallow food safely. His BNP was elevated at 1600. EKG revealed atrial fibrillation with right bundle branch block. His blood gases show respiratory acidosis. Chest x-ray showed cardiomegaly with pulmonary congestion. The patient has encephalopathy. He is currently on Lasix IV 40 mg q.8. BUN and creatinine are elevated at 88 and 2.89. I am going to consult Nephrology for further management of the elevated BUN and creatinine. The patient has a potassium of 6 this morning. He received Kayexalate yesterday. We probably have to repeat another dose of Kayexalate today. PAST MEDICAL HISTORY: Significant for permanent atrial fibrillation, chronic congestive heart failure, permanent atrial fibrillation, morbid obesity, and moderate LV dysfunction with mild to moderate mitral regurgitation. MEDICATIONS: Include, 1. Zyloprim. 2. K-Dur. 3. Singulair. 4. Neurontin. 5. Pepcid. 6. Ventolin. 7. Lipitor. 8. Eliquis. ALLERGIES: As charted. FAMILY HISTORY: Negative for premature coronary artery disease. SOCIAL HISTORY: Negative for smoking, EtOH abuse, or drug abuse. REVIEW OF SYSTEMS: review of systems has been performed, pertinents are as documented. PHYSICAL EXAMINATION: GENERAL: Comfortable at rest. VITAL SIGNS: Stable. CHEST: Diminished air entry at the bases. HEART: First and second heart sounds. Irregular rhythm. Systolic murmur at the apex. ABDOMEN: Soft. EXTREMITIES: Bilateral pitting edema. LABORATORY DATA: Labs show hemoglobin of 16.5, platelet count is 97. Potassium is 6, BUN is 88, creatinine is 2.89. Blood gases reveal that the patient is in respiratory acidosis. BNP is elevated. EKG shows atrial fibrillation with right bundle branch block. CONCLUSIONS: 1. Acute exacerbation of chronic systolic heart failure. 2. Acute on chronic renal failure. 3. Permanent atrial fibrillation. 4. Encephalopathy. PLAN: We will continue with supportive care. Prognosis guarded. We will start the patient on IV heparin if we have to if the patient is not able to take the Eliquis. MARISA / TISHA: [id number] /
--- NOTE | 2023-02-13 11:24 | P.NPCON ---
History of Present Illness - Reason for Consult acute renal failure - History of Present Illness Patient is a 72-year-old male with history of COPD, chronic A. fib, CHF and chronic kidney disease. Baseline renal function not known. Patient is admitted to the hospital with complaints of increased shortness of breath. It appears that diuretics were recently decreased as outpatient due to worsening renal function. Serum creatinine this admission was 2.9 mg/dL and it is 2.8 today. Patient is maintained on BiPAP for acute hypoxic respiratory failure. Urine output at about 100-150 ML per hour. Blood pressure has been on the lower side with systolic around 102-10 1 mmHg. It was 96/60 on initial admission. No NSAIDs or OANH inhibitor as noted on home med list. Currently maintained on Lasix 40 mg IV every 8 hours. Echocardiogram in 2019 showed ejection fraction of 40-45%. Potassium has been 5.7-6 mEq/L. Blood sugar at 182-146. Ultrasound shows no evidence of hydronephrosis. Patient is voiding on his own. Review of Systems As per HPI Past Medical History Past Medical History: Atrial Fibrillation, Heart Failure, COPD, GI Bleed, Renal Disease, Sleep Apnea/CPAP/BIPAP Additional Past Medical History / Comment(s): Hiatal hernia, cateracts, diverticulosis, CPAP use, Falls, History of Any Multi-Drug Resistant Organisms: None Reported Past Surgical History: Heart Catheterization Additional Past Surgical History / Comment(s): Bilateral cataract surgery, ganglion cyst removed, EGD/colonoscopy, cardioversion Past Anesthesia/Blood Transfusion Reactions: No Reported Reaction Past Psychological History: No Psychological Hx Reported Smoking Status: Former smoker Past Alcohol Use History: Daily Additional Past Alcohol Use History / Comment(s): Quit just over 1 yr ago, smoked 40 yrs, 1PPD or more. Past Drug Use History: None Reported - Past Family History Mother Family Medical History: Cancer Father Family Medical History: Cancer, Myocardial Infarction ([place]) Medications and Allergies Home Medications Medication Instructions Recorded Confirmed Type Albuterol Inhaler [Ventolin Hfa 1 - 2 puff INHALATION RT-Q4H PRN 08/18/18 02/12/23 History Inhaler] Apixaban [Eliquis] 5 mg PO BID 08/18/18 02/12/23 History Ipratropium-Albuterol Nebulize 3 ml INHALATION RT-QID PRN 08/18/18 02/12/23 History [Duoneb 0.5 mg-3 mg/3 ml Soln] Metoprolol Tartrate 25 mg PO TID 08/18/18 02/12/23 History Montelukast [Singulair] 10 mg PO DAILY 08/18/18 02/12/23 History Atorvastatin [Lipitor] 80 mg PO DAILY 02/12/23 02/12/23 History Budesonide [Pulmicort] 0.5 mg INHALATION RT-BID 02/12/23 02/12/23 History Cyanocobalamin (Vitamin B-12) 1,000 mcg PO DAILY 02/12/23 02/12/23 History [Vitamin B-12] Famotidine [Pepcid] 20 mg PO DAILY 02/12/23 02/12/23 History Gabapentin [Neurontin] 100 mg PO BID@1300,2100 02/12/23 02/12/23 History Gabapentin [Neurontin] 200 mg PO DAILY@0800 02/12/23 02/12/23 History Potassium Chloride ER [K-Dur 20] 20 meq PO DAILY 02/12/23 02/12/23 History allopurinoL [Zyloprim] 100 mg PO DAILY 02/12/23 02/12/23 History Allergies Allergy/AdvReac Type Severity Reaction Status Date / Time No Known Allergies Allergy Verified 02/12/23 18:56 Physical Exam Vitals: Vital Signs Temp Pulse Pulse Resp BP BP Pulse Ox 02/13/23 09:00 86 26 H 106/83 96 02/13/23 08:03 71 02/13/23 08:00 96.4 F L 78 25 H 103/75 94 L 02/13/23 07:43 68 02/13/23 07:00 66 20 103/75 94 L 02/13/23 06:00 80 27 H 129/97 85 L 02/13/23 05:00 76 23 107/96 89 L 02/13/23 04:00 97.3 F L 80 23 108/84 91 L 02/13/23 03:56 02/13/23 03:00 85 26 H 118/91 92 L 02/13/23 02:00 94 12 110/85 90 L 02/13/23 01:00 79 14 107/85 81 L 02/13/23 00:05 02/12/23 23:02 22 97 02/12/23 23:01 25 H 88 L 02/12/23 22:13 02/12/23 22:12 02/12/23 21:33 80 02/12/23 21:15 88 02/12/23 20:00 97.7 F 90 30 H 116/79 86 L 02/12/23 18:45 97.9 F 109 H 24 96/60 90 L 02/12/23 18:27 90 L 02/12/23 18:18 97.6 F 99 19 108/90 82 L 02/12/23 17:06 97 20 102/84 90 L 02/12/23 16:01 22 02/12/23 15:51 97.6 F 82 22 101/84 92 L FiO2 02/13/23 09:00 40 02/13/23 08:03 02/13/23 08:00 40 02/13/23 07:43 40 02/13/23 07:00 02/13/23 06:00 02/13/23 05:00 02/13/23 04:00 40 02/13/23 03:56 40 02/13/23 03:00 02/13/23 02:00 40 02/13/23 01:00 02/13/23 00:05 40 02/12/23 23:02 60 02/12/23 23:01 02/12/23 22:13 60 02/12/23 22:12 60 02/12/23 21:33 02/12/23 21:15 02/12/23 20:00 02/12/23 18:45 02/12/23 18:27 02/12/23 18:18 02/12/23 17:06 02/12/23 16:01 02/12/23 15:51 Intake and Output 02/12/23 02/13/23 02/13/23 22:59 06:59 14:59 Intake Total 46.418 Output Total 350 1070 295 Balance -350 -1070 -248.582 Intake: IV 30 NS 30 Intake, IV Titration 16.418 Amount Dexmedetomidine/0.9% NaCl 16.418 (Pmx) 400 mcg In Empty Bag 1 bag @ 0.2 MCG/KG/HR 7.19 mls/hr IV .[id number] [facility] Rx#:[id number] Output: Urine 350 1070 295 Other: Voiding Method External Catheter Indwelling Catheter # Bowel Movements 2 Weight 145.15 kg 143.8 kg Patient is awake, he is currently on BiPAP. 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 Acute kidney injury cardiorenal and due to low blood pressure and possible underlying ischemic ATN. Currently nonoliguric. Check urine analysis. No evidence of obstruction on ultrasound. 2. Chronic kidney disease with unknown baseline renal function. Possibly stage IV. 3. Acute systolic CHF. Previous ejection fraction 40-45% in 2019 4. COPD with acute exacerbation 5. Acute hypoxic respiratory failure secondary to CHF and COPD exacerbation 6. Volume overload 7. Hyperkalemia associated with acute kidney injury. No evidence of obstructive uropathy. Blood sugar is not significantly elevated. We will continue to treat with IV medications. DC Kayexalate. 8. Mild hypercalcemia, obtain basic workup. No calcium supplements noted. Plan: Treat hyperkalemia with IV medications Continue with IV Lasix Increase dose of Lasix Check UA Decrease Lopressor as blood pressure is low Avoid hypotension Repeat labs in a.m. Check PTH, vitamin D levels
[2023-02-13 11:26] LABS: Glucose,Whole Blood 132 mg/dL (70-110)
[2023-02-13] MEDS ORDERED: INSULIN REGULAR 100 UNIT/ML VIAL (IV) IV ONE (11:34)
[2023-02-13] MEDS ORDERED: DEXTROSE 50% SYRINGE 50 ML IVP STA (11:34)
[2023-02-13 11:35] LABS: ABG Base Excess 2.5 mmol/L; ABG HCO3 29 mmol/L (21-25); ABG PCO2 63 mmHg (35-45); ABG PH 7.28 (7.35-7.45); ABG PO2 74 mmHg (83-108); ABG TCO2 31 mmol/L (19-24); Allen Test Performed? Yes
[2023-02-13] MEDS: methylPREDNISolone SOD SUCCI 125 MG/2 ML VIAL IV SCH ×3 (11:43→23:59)
[2023-02-13 12:07] LABS: Glucose,Whole Blood 175 mg/dL (70-110)
[2023-02-13 12:08] LABS: Appearance,Urine Clear (Clear); Bacteria,Urine Occasional /hpf; Bilirubin,Urine Negative (Negative); Blood,Urine Large (Negative); Color,Urine Light Yellow; Glucose,Urine (UA) Negative (Negative); Hyaline Casts,Urine 6 /lpf (0-2); Ketones,Urine Negative (Negative); Leukocyte Esterase,Urine Moderate (Negative); Mucus,Urine Rare /hpf; Nitrite,Urine Negative (Negative); Protein,Urine Negative (Negative); RBC,Urine 170 /hpf (0-5); Specific Gravity,Urine 1.009 (1.001-1.035); Squamous Epithelial Cell,Urine <1 /hpf (0-4); Urobilinogen,Urine <2.0 mg/dL (<2.0); WBC,Urine 1 /hpf (0-5)
--- NOTE | 2023-02-13 12:24 | CA ---
Transthoracic Echo Report Name: Hemant Carr Age: 72 Gender: M : 1950 Exam Date: 02/13/2023 07:48 Exam Location: [facility] Ht (in): 75 Wt (lb): 320 Ordering Physician: Josefina Hatfield DO Attending/Referring Phys: [id number], [facility] Yuki Kendall RDCS Procedure CPT: Indications: Heart failure Cardiac Hx: Technical Quality: Poor Contrast 1: Total Dose (mL): Contrast 2: Total Dose (mL): MEASUREMENTS (Male / Female) Normal Values 2D ECHO LV Diastolic Diameter PLAX 5.0 cm 4.2 - 5.9 / 3.9 - 5.3 cm LV Systolic Diameter PLAX 4.1 cm IVS Diastolic Thickness 1.6 cm 0.6 - 1.0 / 0.6 - 0.9 cm LVPW Diastolic Thickness 1.5 cm 0.6 - 1.0 / 0.6 - 0.9 cm LV Relative Wall Thickness 0.6 RV Internal Dim ED PLAX 3.6 cm LVOT Diameter 2.5 cm LA Systolic Diameter LX 4.7 cm 3.0 - 4.0 / 2.7 - 3.8 cm LV Diastolic Volume MOD 4C 63.3 cm??? LV Systolic Volume MOD 4C 19.8 cm??? LV Ejection Fraction MOD 4C 68.7 % LV Cardiac Index MOD 4C 1229.0 cm???/min???m??? LV Diastolic Length 4C 8.3 cm LV Systolic Length 4C 7.4 cm LV Diastolic Volume MOD 2C 95.6 cm??? LV Systolic Volume MOD 2C 34.0 cm??? LV Ejection Fraction MOD 2C 64.4 % LV Cardiac Index MOD 2C 1740.5 cm???/min???m??? LV Diastolic Length 2C 7.8 cm LV Systolic Length 2C 8.0 cm LA Volume 151.2 cm??? 18 - 58 / 22 - 52 cm??? M-MODE Aortic Root Diameter MM 4.3 cm MV E Point Septal Separation 0.7 cm DOPPLER AV Peak Velocity 349.8 cm/s AV Peak Gradient 48.9 mmHg AV Mean Velocity 256.4 cm/s AV Mean Gradient 29.3 mmHg AV Velocity Time Integral 91.5 cm LVOT Peak Velocity 84.9 cm/s LVOT Peak Gradient 2.9 mmHg AV Area Cont Eq pk 1.2 cm??? MV Area PHT 4.8 cm??? MV Deceleration Time 162.2 ms TR Peak Velocity 334.1 cm/s TR Peak Gradient 44.6 mmHg Right Ventricular Systolic Press 49.1 mmHg FINDINGS Left Ventricle Left ventricular ejection fraction is estimated at 55-60 %. Left ventricular cavity size normal. Moderately increased septal wall thickness.normal left ventricular wall motion. Right Ventricle Mild right ventricular dilatation. Moderate pulmonary hypertension. Right Atrium Normal right atrial size. Left Atrium Mildly increased left atrial diameter. Severely increased left atrial volume. Moderately increased left atrial area. Mitral Valve Mitral valve thickened. Mild mitral annular calcification. No mitral stenosis, regurgitation or prolapse. Aortic Valve Moderate aortic valve sclerosis. Moderate aortic stenosis with a peak gradient of 49 mmHg and a mean gradient of 29 mmHg.aortic valve not well visualized. Tricuspid Valve Structurally normal tricuspid valve. Mild tricuspid regurgitation. Pulmonic Valve Pulmonic valve not well visualized. Pericardium Normal pericardium. No pericardial effusion. Aorta Moderately dilated proximal ascending aorta 43 mm CONCLUSIONS Technically difficult study. 1. Normal left ventricle size and systolic function 2. Moderate aortic stenosis with a mean gradient of 29 mmHg 3. Mild tricuspid regurgitation with moderate pulmonary hypertension Previewed by: Dr. Katherine Veras MD (Electronically Signed) Final Date: 13 February 2023 12:23
[2023-02-13 12:46] VITALS: BMI 39.6
--- NOTE | 2023-02-13 15:46 | P.HPIM ---
History of Present Illness H&P Date: 02/13/23 Chief Complaint: Shortness of breath 72-year-old male with history of CHF, COPD, chronic kidney disease. He presented to [facility] with a complaint of shortness of breath. Apparently one of his physicians had decreased his diuretic due to worsening kidney function, he reports he's been 20-30 pounds over the past month. This morning he felt as though he just couldn't breathe at all and when he arrived at [place] his oxygen saturation was in the 50s. He was treated with BiPAP and breathing treatments as well as Lasix. He was able to be weaned down to nasal cannula but was transferred to our facility for further management admission for congestive heart failure exacerbation and COPD exacerbation. Patient denies any chest pain or palpitations. Of note the patient is an alcoholic reports daily drinking of 1 L of vodka he states that he does not have withdrawal symptoms on days that he does not drink when he is hospitalized. Blood work completed in ED reveals WBC 6.4, hemoglobin of 16.9 and hematocrit 55.2. Platelet count of 136, sodium 140, potassium 5.9, BUN/creatinine of 83/2.93; lactic acid level of 0.8 Potassium level was as high as 6.4, treated with potassium cocktail and the subsequent level today is at 6.0. Calcium level is mildly elevated at 10.4. LFTs are normal, proBNP level is 16,100 and the troponins are negative. EKG showing a atrial fibrillation rhythm with a right bundle branch block pattern. Noted the patient has been maintained on anticoagulation with Eliquis on outpatient basis and I'm assuming this was given to him for chronic atrial fibrillation. Overnight, the patient was given IV Lasix. He is still on Lasix 40 mg IV every 8 hours. He is producing adequate amount of urine output. Urine output has b een -1.4 L over the past 8 hours. Review of Systems REVIEW OF SYSTEMS: CONSTITUTIONAL: No fever, no malaise, no fatigue. HEENT: No recent visual problems or hearing problems. Denied any sore throat. CARDIOVASCULAR: No chest pain, orthopnea, PND, no palpitations, no syncope. PULMONARY: No shortness of breath, no cough, no hemoptysis. GASTROINTESTINAL: No diarrhea, no nausea, no vomiting, no abdominal pain. NEUROLOGICAL: No headaches, no weakness, no numbness. HEMATOLOGICAL: Denies any bleeding or petechiae. GENITOURINARY: Denies any burning micturition, frequency, or urgency. MUSCULOSKELETAL/RHEUMATOLOGICAL: Denies any joint pain, swelling, or any muscle pain. ENDOCRINE: Denies any polyuria or polydipsia. The rest of the 14-point review of systems is negative. Past Medical History Past Medical History: Atrial Fibrillation, Heart Failure, COPD, GI Bleed, Renal Disease, Sleep Apnea/CPAP/BIPAP Additional Past Medical History / Comment(s): Hiatal hernia, cateracts, diverticulosis, CPAP use, Falls, History of Any Multi-Drug Resistant Organisms: None Reported Past Surgical History: Heart Catheterization Additional Past Surgical History / Comment(s): Bilateral cataract surgery, ganglion cyst removed, EGD/colonoscopy, cardioversion Past Anesthesia/Blood Transfusion Reactions: No Reported Reaction Past Psychological History: No Psychological Hx Reported Smoking Status: Former smoker Past Alcohol Use History: Daily Additional Past Alcohol Use History / Comment(s): Quit just over 1 yr ago, smoked 40 yrs, 1PPD or more. Past Drug Use History: None Reported - Past Family History Mother Family Medical History: Cancer Father Family Medical History: Cancer, Myocardial Infarction ([place]) Medications and Allergies Home Medications Medication Instructions Recorded Confirmed Type Albuterol Inhaler [Ventolin Hfa 1 - 2 puff INHALATION RT-Q4H PRN 08/18/18 02/12/23 History Inhaler] Apixaban [Eliquis] 5 mg PO BID 08/18/18 02/12/23 History Ipratropium-Albuterol Nebulize 3 ml INHALATION RT-QID PRN 08/18/18 02/12/23 History [Duoneb 0.5 mg-3 mg/3 ml Soln] Metoprolol Tartrate 25 mg PO TID 08/18/18 02/12/23 History Montelukast [Singulair] 10 mg PO DAILY 08/18/18 02/12/23 History Atorvastatin [Lipitor] 80 mg PO DAILY 02/12/23 02/12/23 History Budesonide [Pulmicort] 0.5 mg INHALATION RT-BID 02/12/23 02/12/23 History Cyanocobalamin (Vitamin B-12) 1,000 mcg PO DAILY 02/12/23 02/12/23 History [Vitamin B-12] Famotidine [Pepcid] 20 mg PO DAILY 02/12/23 02/12/23 History Gabapentin [Neurontin] 100 mg PO BID@1300,2100 02/12/23 02/12/23 History Gabapentin [Neurontin] 200 mg PO DAILY@0800 02/12/23 02/12/23 History Potassium Chloride ER [K-Dur 20] 20 meq PO DAILY 02/12/23 02/12/23 History allopurinoL [Zyloprim] 100 mg PO DAILY 02/12/23 02/12/23 History Allergies Allergy/AdvReac Type Severity Reaction Status Date / Time No Known Allergies Allergy Verified 02/12/23 18:56 Physical Exam Vitals: Vital Signs Temp Pulse Pulse Resp BP BP Pulse Ox 02/13/23 09:00 86 26 H 106/83 96 02/13/23 08:03 71 02/13/23 08:00 96.4 F L 78 25 H 103/75 94 L 02/13/23 07:43 68 02/13/23 07:00 66 20 103/75 94 L 02/13/23 06:00 80 27 H 129/97 85 L 02/13/23 05:00 76 23 107/96 89 L 02/13/23 04:00 97.3 F L 80 23 108/84 91 L 02/13/23 03:56 02/13/23 03:00 85 26 H 118/91 92 L 02/13/23 02:00 94 12 110/85 90 L 02/13/23 01:00 79 14 107/85 81 L 02/13/23 00:05 02/12/23 23:02 22 97 02/12/23 23:01 25 H 88 L 02/12/23 22:13 02/12/23 22:12 02/12/23 21:33 80 02/12/23 21:15 88 02/12/23 20:00 97.7 F 90 30 H 116/79 86 L 02/12/23 18:45 97.9 F 109 H 24 96/60 90 L 02/12/23 18:27 90 L 02/12/23 18:18 97.6 F 99 19 108/90 82 L 02/12/23 17:06 97 20 102/84 90 L 02/12/23 16:01 22 02/12/23 15:51 97.6 F 82 22 101/84 92 L FiO2 02/13/23 09:00 40 02/13/23 08:03 02/13/23 08:00 40 02/13/23 07:43 40 02/13/23 07:00 02/13/23 06:00 02/13/23 05:00 02/13/23 04:00 40 02/13/23 03:56 40 02/13/23 03:00 02/13/23 02:00 40 02/13/23 01:00 02/13/23 00:05 40 02/12/23 23:02 60 02/12/23 23:01 02/12/23 22:13 60 02/12/23 22:12 60 02/12/23 21:33 02/12/23 21:15 02/12/23 20:00 02/12/23 18:45 02/12/23 18:27 02/12/23 18:18 02/12/23 17:06 02/12/23 16:01 02/12/23 15:51 Intake and Output 02/12/23 02/13/23 02/13/23 22:59 06:59 14:59 Intake Total 106.418 Output Total 350 1070 855 Balance -350 -2510 -748.582 Intake: IV 90 NS 90 Intake, IV Titration 16.418 Amount Dexmedetomidine/0.9% NaCl 16.418 (Pmx) 400 mcg In Empty Bag 1 bag @ 0.2 MCG/KG/HR 7.19 mls/hr IV .[id number] [facility] Rx#:[id number] Output: Urine 350 1070 855 Other: Voiding Method External Catheter Indwelling Catheter # Bowel Movements 2 Weight 145.15 kg 143.8 kg - Constitutional General appearance: Present: average body habitus, cooperative, no acute distress - EENT Eyes: Present: anicteric sclerae, EOMI, PERRLA, normal appearance ENT: Present: hearing grossly normal, normal oropharynx Ears: bilateral: normal - Neck Neck: Present: normal ROM. Absent: lymphadenopathy, rigidity, thyromegaly Carotids: negative: bruit present Thyroid: bilateral: normal size, negative: enlarged, nodule - Respiratory Respiratory: bilateral: CTA, negative: rales, rhonchi, wheezing - Cardiovascular Rhythm: regular Heart sounds: normal: S1, S2 Abnormal Heart Sounds: Absent: systolic murmur, diastolic murmur - Gastrointestinal General gastrointestinal: Present: normal bowel sounds, soft. Absent: distended, organomegaly, tenderness - Genitourinary Genitourinary Comment(s): deferred - Integumentary Integumentary: Present: normal turgor. Absent: jaundiced, rash, ulcer - Neurologic Neurologic: Present: CNII-XII intact. Absent: focal deficits - Musculoskeletal Musculoskeletal: Present: gait normal, strength equal bilaterally - Psychiatric Psychiatric: Present: A&O x's 3, appropriate affect, intact judgment & insight Results CBC & Chem 7: 02/13/23 06:44 02/13/23 06:44 Labs: Abnormal Lab Results - Last 24 Hours (Table) 02/12/23 02/12/23 02/12/23 Range/Units 16:35 16:35 16:35 Hct 55.2 H (39.0-53.0) % MCV 109.2 H (80.0-100.0) fL MCHC 30.6 L (31.0-37.0) g/dL Plt Count 136 L (150-450) k/uL Lymphocytes # 0.7 L (1.0-4.8) k/uL Macrocytosis Marked A PT 12.3 H (9.0-12.0) sec INR 1.2 H (<1.2) ABG pH (7.35-7.45) ABG pCO2 (35-45) mmHg ABG pO2 (83-108) mmHg ABG HCO3 (21-25) mmol/L ABG Total CO2 (19-24) mmol/L ABG O2 Saturation (94-97) % Potassium 5.9 H (3.5-5.1) mmol/L Chloride (98-107) mmol/L Carbon Dioxide (22-30) mmol/L BUN 83 H (9-20) mg/dL Creatinine 2.93 H (0.66-1.25) mg/dL Glucose (74-99) mg/dL POC Glucose (mg/dL) (70-110) mg/dL Calcium (8.4-10.2) mg/dL Magnesium 2.4 H (1.6-2.3) mg/dL 02/12/23 02/12/23 02/12/23 Range/Units 21:13 22:45 23:28 Hct (39.0-53.0) % MCV (80.0-100.0) fL MCHC (31.0-37.0) g/dL Plt Count (150-450) k/uL Lymphocytes # (1.0-4.8) k/uL Macrocytosis PT (9.0-12.0) sec INR (<1.2) ABG pH 7.17 L* (7.35-7.45) ABG pCO2 73 H* (35-45) mmHg ABG pO2 111 H (83-108) mmHg ABG HCO3 27 H (21-25) mmol/L ABG Total CO2 29 H (19-24) mmol/L ABG O2 Saturation 97.6 H (94-97) % Potassium 6.4 H* (3.5-5.1) mmol/L Chloride (98-107) mmol/L Carbon Dioxide (22-30) mmol/L BUN (9-20) mg/dL Creatinine (0.66-1.25) mg/dL Glucose (74-99) mg/dL POC Glucose (mg/dL) 166 H (70-110) mg/dL Calcium (8.4-10.2) mg/dL Magnesium (1.6-2.3) mg/dL 02/13/23 02/13/23 02/13/23 Range/Units 00:02 02:02 02:03 Hct (39.0-53.0) % MCV (80.0-100.0) fL MCHC (31.0-37.0) g/dL Plt Count (150-450) k/uL Lymphocytes # (1.0-4.8) k/uL Macrocytosis PT (9.0-12.0) sec INR (<1.2) ABG pH 7.19 L* (7.35-7.45) ABG pCO2 70 H (35-45) mmHg ABG pO2 78 L (83-108) mmHg ABG HCO3 27 H (21-25) mmol/L ABG Total CO2 29 H (19-24) mmol/L ABG O2 Saturation 92.8 L (94-97) % Potassium 5.7 H (3.5-5.1) mmol/L Chloride (98-107) mmol/L Carbon Dioxide (22-30) mmol/L BUN (9-20) mg/dL Creatinine (0.66-1.25) mg/dL Glucose (74-99) mg/dL POC Glucose (mg/dL) 182 H (70-110) mg/dL Calcium (8.4-10.2) mg/dL Magnesium (1.6-2.3) mg/dL 02/13/23 02/13/23 02/13/23 Range/Units 06:44 06:44 11:24 Hct 55.1 H (39.0-53.0) % MCV 110.3 H (80.0-100.0) fL MCHC 29.9 L (31.0-37.0) g/dL Plt Count 97 L (150-450) k/uL Lymphocytes # (1.0-4.8) k/uL Macrocytosis Marked A PT (9.0-12.0) sec INR (<1.2) ABG pH (7.35-7.45) ABG pCO2 (35-45) mmHg ABG pO2 (83-108) mmHg ABG HCO3 (21-25) mmol/L ABG Total CO2 (19-24) mmol/L ABG O2 Saturation (94-97) % Potassium 6.0 H (3.5-5.1) mmol/L Chloride 110 H (98-107) mmol/L Carbon Dioxide 21 L (22-30) mmol/L BUN 88 H (9-20) mg/dL Creatinine 2.89 H (0.66-1.25) mg/dL Glucose 146 H (74-99) mg/dL POC Glucose (mg/dL) 132 H (70-110) mg/dL Calcium 10.4 H (8.4-10.2) mg/dL Magnesium (1.6-2.3) mg/dL Thrombosis Risk Factor Assmnt - Choose All That Apply Any of the Below Risk Factors Present?: Yes Each Factor Represents 1 point: Abnormal pulmonary function (COPD), Obesity (BMI >25) Each Risk Factor Represents 2 Points: Age 61-74 years Thrombosis Risk Factor Assessment Total Risk Factor Score: 4 Thrombosis Risk Factor Assessment Level: Moderate Risk Assessment and Plan Assessment: 1. Acute on chronic hypoxic/hypercapnic respiratory failure; multifactorial -- Related to COPD/CHF exacerbation - Patient is currently on BiPAP; blood gases are being followed up which revealed acute on chronic hypercapnic respiratory failure 2. Acute exacerbation CHF; elevated BNP -- patient was placed on Lasix 40 mg IV every 8 hours which has been escalated by nephrology, up to 60 mg 3 times a day 3. Acute exacerbation COPD; Singulair 10 mg daily; DuoNeb nebulizer treatments 4 times a day and when necessary; Pulmicort nebulizer treatment twice a day; 4. Acute hyperkalemia; patient is on potassium supplementation at home, came to 20 mEq daily; potassium supplement placed on hold; we will monitor electrolytes closely; patient received Kayexalate, 1 amp of dextrose with 10 units of IV insulin; whenever of calcium gluconate; we will continue to monitor electrolytes closely 5. Chronic A. fib, rate is controlled for now on metoprolol 25 mg 3 times a day and the patient is on anti-coagulation with Eliquis 6. Alcohol abuse/pending withdrawal; patient has been placed on IV Ativan per [facility] protocol; thiamine 100 mg daily 7. Hypertension; metoprolol 25 mg 3 times a day 8. Hyperlipidemia; Lipitor 80 mg by mouth daily at bedtime DVT prophylaxis; SCDs/systemic anticoagulation CODE STATUS; full code
[2023-02-13 16:41] LABS: Glucose,Whole Blood 123 mg/dL (70-110)
[2023-02-13] MEDS: FUROSEMIDE 10 MG/ML 10 ML VIAL IV SCH ×2 (16:48→23:59)
[2023-02-13] MEDS: METOPROLOL TARTRATE 12.5 MG TAB PO SCH (21:24)
[2023-02-13 23:47] LABS: Glucose,Whole Blood 135 mg/dL (70-110)
[2023-02-14 04:44] LABS: Basophils % (A) 0 %; Eosinophils % (A) 0 %; HGB 17.5 gm/dL (13.0-17.5); Hypochromasia Moderate; Lymphocytes # (A) 0.4 k/uL (1.0-4.8); Lymphocytes % (A) 5 %; MCHC 31.5 g/dL (31.0-37.0); Macrocytosis Moderate; Mean Platelet Volume 9.9; Monocytes # (A) 0.3 k/uL (0-1.0); Monocytes % (A) 4 %; Neutrophils # (A) 7.7 k/uL (1.3-7.7); Neutrophils % (A) 91 %; Platelet Count 101 k/uL (150-450); RBC 5.29 m/uL (4.30-5.90); RDW 14.1 % (11.5-15.5); WBC 8.5 k/uL (3.8-10.6)
[2023-02-14 04:45] LABS: HCT 55.5 % (39.0-53.0)
[2023-02-14 04:46] LABS: MCV 104.8 fL (80.0-100.0)
[2023-02-14] MEDS: DEXMEDETOMIDINE/0.9% NACL(PMX) 400 MCG in EMPTY BAG 1 BAG IV SCH ×3 (04:50→23:00)
[2023-02-14 04:52] LABS: African American GFR (CKD) 31 (>60 ml/min/1.73 sqM); Anion Gap 7 mmol/L; Blood Urea Nitrogen 84 mg/dL (9-20); Calcium 10.3 mg/dL (8.4-10.2); Carbon Dioxide 30 mmol/L (22-30); Chloride 107 mmol/L (98-107); Glucose 154 mg/dL (74-99); Non-African American GFR(CKD) 27 (>60 ml/min/1.73 sqM); Potassium 4.6 mmol/L (3.5-5.1); Sodium 144 mmol/L (137-145)
[2023-02-14] MEDS: methylPREDNISolone SOD SUCCI 125 MG/2 ML VIAL IV SCH ×3 (06:07→16:26)
[2023-02-14] MEDS: BUDESONIDE 0.5 MG/2 ML NEBU INHALATION SCH ×2 (08:07→20:01)
[2023-02-14] MEDS: IPRATROPIUM-ALBUTEROL 3 ML NEB INHALATION PRN ×2 (08:07→20:01)
--- NOTE | 2023-02-14 08:40 | P.PN ---
Subjective Progress Note Date: 02/14/23 This is a 72-year-old male patient, morbidly obese, known history of COPD, congestion heart failure, chronic atrial fibrillation and chronic kidney disease, presented to us from [facility]. The patient presented there with increased shortness of breath. Apparently the patient has not been taking his diuretics this has been discontinued due to concerns of his renal dysfunction. The patient went to [facility] and subsequently transferred to us, admitted to the medical floor, he was found to be quite lethargic in significant respiratory distress. He was placed on a BiPAP of 16/6 cm of water and FiO2 of 40%. The blood gas prior to that showed a pH of 7.17 with a pCO2 of 73 and pO2 of 111. Subsequent blood gas from 2 AM showed a pH of 7.19 with a pCO2 of 70 and pO2 of 78. Chest x-ray shows cardiac megaly, pulmonary vessel congestion and no clear airspace disease or pulmonary infiltrates noted. The patient has quite encephalopathic and lethargic at this point in time. He is status with the BiPAP. He is generating a tidal volume of 462 with a respiratory rate of 23. Minute ventilation is around 10.8. His blood work shows a WD count of 7.8 with a hemoglobin 16.5 and a platelet count of 136. BUN is at 28 with a creatinine of 2.8 and the sodium levels of 142. Potassium level was as high as 6.4, treated with potassium cocktail and the subsequent level today is at 6.0. Calcium level is mildly elevated at 10.4. LFTs are normal, proBNP level is 16,100 and the troponins are negative. EKG showing a atrial fibrillation rhythm with a right bundle branch block pattern. Noted the patient has been maintained on anticoagulation with Eliquis on outpatient basis and I'm assuming this was given to him for chronic atrial fibrillation. He does have asymmetric lower extremity edema worse on the left. He has a Gordon catheter in place. He is also known to be alcoholic. He has stated that he really paralyzed on a daily basis. He was also stated that he goes into withdrawal was while not drinking for few days. Overnight, the patient was given IV Lasix. He is still on Lasix 40 mg IV every 8 hours. He is producing adequate amount of urine output. Urine output has been -1.4 L over the past 8 hours. Today's evaluation of 02/14/2023, the patient is still on a BiPAP at a pressure of 16/6 cm of water with FiO2 40%. The patient was kept on BiPAP throughout the night yesterday. This morning his generating adequate tidal volumes. He is comfortable on Precedex which is running at 0.4 mcg/kg/m. No agitation. No signs of any delirium tremens and needs communicating appropriately. The patient has diabetes adequate over the past 24 hours while being on IV Lasix. Fluid balance is -3.6 L over the past 24 hours. The patient's BUN is down to 84 with a creatinine of 2.3. The white cell count of 8.5 with a hemoglobin of 17.5. Ultrasound the lower extremities was done and it showed no evidence of any DVTs. Ultrasound the kidneys showed no evidence of any hydronephrosis. The echocardiogram was also done yesterday and the patient was found to have a preserved LV function with an ejection fraction of 55-60%. There was moderate degree of aortic stenosis with a mean gradient of 29. Mild tricuspid regurgitation. Moderate pulmonary hypertension with a pulmonary artery pressures estimated to be at 43. Gordon cath is in place. The patient's cardiac rhythm is atrial fibrillation. The patient remains on anticoagulation with Eliquis. The patient is also on metoprolol 12.5 mg by mouth twice a day and the rate is on the adequate control for now. He remains on bronchodilators. Objective - Vital Signs Vital signs: Vital Signs Temp 96.4 F L 02/14/23 04:00 Pulse 77 02/14/23 08:23 Resp 24 02/14/23 08:23 BP 144/108 02/14/23 07:00 Pulse Ox 89 L 02/14/23 07:00 FiO2 40 02/14/23 08:09 Intake & Output 02/13/23 02/14/23 02/14/23 18:59 06:59 18:59 Intake Total 479.450 585.387 Output Total 20142 Balance -2129.471 -8766.089 Weight 143.8 kg 140.9 kg Intake: IV 300 390 NS 300 390 Intake, IV Titration 179.450 195.387 Amount Dexmedetomidine/0.9% NaCl 79.450 195.387 (Pmx) 400 mcg In Empty Bag 1 bag @ 0.2 MCG/KG/HR 7.19 mls/hr IV .[id number] [facility] Rx#:[id number] Thiamine 100 mg In Sodium 100 Chloride 0.9% 50 ml @ 100 mls/hr IVPB Q24HR [facility] Rx#:[id number] Output: Urine 20140 Other: Voiding Method Indwelling Catheter Indwelling Catheter # Bowel Movements 2 ABP, PAP, CO, CI - Last Documented Arterial Blood Pressure 140/82 - Exam The patient is currently awake and responsive and he is calm and comfortable and symptoms with a BiPAP at this point in time and is tolerating the treatment fairly well. He is morbidly obese. He is also on a Precedex drip Head exam was generally normal. There was no scleral icterus or corneal arcus. Mucous membranes were moist. Neck is short and the patient has significant crowding of the posterior oropharynx, poor dental condition, crowding of the posterior oropharynx with a Mallampati class IV Lungs diminished breath sounds bilaterally and the patient diffuse expiratory wheezes throughout the lung dumont Heart sounds are irregular, consistent with atrial fibrillation, no significant murmurs appreciated Abdomen is distended and soft. No direct tenderness. No rebound tenderness. No guarding. Lower extremities are showed +1 edema, asymmetric slightly worse on the left, no open wounds or sores. No cyanosis or clubbing. Examination of the skin revealed no evidence of significant rashes, suspicious appearing nevi or other concerning lesions. Neurologically the patient is awake and alert, moving all 4 extremities and grimacing to painful stimulation. Answering questions appropriately at this point in time. He was unable reactive to light. No facial asymmetry. - Labs CBC & Chem 7: 02/14/23 04:15 02/14/23 04:15 Labs: Abnormal Lab Results - Last 24 Hours (Table) 02/13/23 02/13/23 02/13/23 Range/Units 06:44 11:24 11:29 Hct (39.0-53.0) % MCV (80.0-100.0) fL Plt Count 97 L (150-450) k/uL Lymphocytes # (1.0-4.8) k/uL ABG pH 7.28 L (7.35-7.45) ABG pCO2 63 H (35-45) mmHg ABG pO2 74 L (83-108) mmHg ABG HCO3 29 H (21-25) mmol/L ABG Total CO2 31 H (19-24) mmol/L ABG O2 Saturation 93.0 L (94-97) % BUN (9-20) mg/dL Creatinine (0.66-1.25) mg/dL Glucose (74-99) mg/dL POC Glucose (mg/dL) 132 H (70-110) mg/dL Calcium (8.4-10.2) mg/dL Urine Blood (Negative) Ur Leukocyte Esterase (Negative) Urine RBC (0-5) /hpf Urine Bacteria (None) /hpf Hyaline Casts (0-2) /lpf Urine Mucus (None) /hpf 02/13/23 02/13/23 02/13/23 Range/Units 11:45 12:05 16:39 Hct (39.0-53.0) % MCV (80.0-100.0) fL Plt Count (150-450) k/uL Lymphocytes # (1.0-4.8) k/uL ABG pH (7.35-7.45) ABG pCO2 (35-45) mmHg ABG pO2 (83-108) mmHg ABG HCO3 (21-25) mmol/L ABG Total CO2 (19-24) mmol/L ABG O2 Saturation (94-97) % BUN (9-20) mg/dL Creatinine (0.66-1.25) mg/dL Glucose (74-99) mg/dL POC Glucose (mg/dL) 175 H 123 H (70-110) mg/dL Calcium (8.4-10.2) mg/dL Urine Blood Large H (Negative) Ur Leukocyte Esterase Moderate H (Negative) Urine RBC 170 H (0-5) /hpf Urine Bacteria Occasional H (None) /hpf Hyaline Casts 6 H (0-2) /lpf Urine Mucus Rare H (None) /hpf 02/13/23 02/14/23 02/14/23 Range/Units 23:46 04:15 04:15 Hct 55.5 H (39.0-53.0) % MCV 104.8 H D (80.0-100.0) fL Plt Count 101 L (150-450) k/uL Lymphocytes # 0.4 L (1.0-4.8) k/uL ABG pH (7.35-7.45) ABG pCO2 (35-45) mmHg ABG pO2 (83-108) mmHg ABG HCO3 (21-25) mmol/L ABG Total CO2 (19-24) mmol/L ABG O2 Saturation (94-97) % BUN 84 H (9-20) mg/dL Creatinine 2.34 H (0.66-1.25) mg/dL Glucose 154 H (74-99) mg/dL POC Glucose (mg/dL) 135 H (70-110) mg/dL Calcium 10.3 H (8.4-10.2) mg/dL Urine Blood (Negative) Ur Leukocyte Esterase (Negative) Urine RBC (0-5) /hpf Urine Bacteria (None) /hpf Hyaline Casts (0-2) /lpf Urine Mucus (None) /hpf Assessment and Plan Plan: Acute on chronic hypoxic/hypercapnic respiratory failure due to COPD/CHF exacerbation. The patient is currently on a BiPAP. Clinically improved. No signs of any CO2 narcosis. No significant agitation and the patient remains on Precedex. The patient was kept on BiPAP overnight and the patient was diuresed and his volume status is also improved. Shortness of breath secondary to above, improving COPD, chronic, severity is not known. Suspect chronic hypoxemia related to COPD CHF with elevated proBNP level. Consider possibility of diastolic heart failure, consider possibility of a right-sided heart failure due to chronic COPD features of obstructive sleep apnea. The patient has preserved LV function, moderate degree of aortic stenosis and moderate pulmonary hypertension Moderate aortic stenosis Morbid obesity Chronic A. fib, rate is controlled for now and the patient is on anti- coagulation with Eliquis. Chronic kidney disease Acute hyperkalemia, treated Alcoholism, currently on Precedex Chronic lower extremity edema, asymmetric, Doppler of the lower extremity is negative and the patient has improvement in edema Features of obstructive sleep apnea Hyperlipidemia Alcoholism Plan Discontinue BiPAP for now and the patient was transitioned to nasal cannula. We are going to continue using the BiPAP on and off during the day and overnight as the patient has features of obstructive sleep apnea. Wean off Precedex currently running at 0.4 microvascular kilogram per hour Continue IV Lasix 60 mg every 8 hours for another 24 hours Continue DuoNeb about treatments [id number] Continue Pulmicort Respules IV Solu-Medrol 60 mg every 6 hours IV Lasix 40 mg every 8 hours Keep the Gordon catheter in place and monitor urine output Obtain ultrasound the kidneys, no hydronephrosis Obtain Doppler of the lower extremities, no DVTs No need for antibiotic coverage at this point in time Obtain echocardiogram, showing moderate degree of aortic stenosis Cardiology consultation Patient is able to swallow his oral pills today We'll establish a triple-lumen catheter Continue thiamine 100 mg IV every 24 hours the form of IV piggybacks Keep in ICU for 24 hours.
[2023-02-14] MEDS: FUROSEMIDE 10 MG/ML 10 ML VIAL IV SCH ×2 (09:52→16:25)
[2023-02-14] MEDS: MULTIVITAMINS, THERA 1 EACH TAB PO SCH (09:53)
[2023-02-14] MEDS: ATORVASTATIN 80 MG TAB PO SCH (09:53)
[2023-02-14] MEDS: MONTELUKAST 10 MG TAB PO SCH (09:53)
[2023-02-14] MEDS: allopurinoL 100 MG TAB PO SCH (09:53)
[2023-02-14] MEDS: APIXABAN 5 MG TAB PO SCH ×2 (09:53→20:32)
[2023-02-14] MEDS: GABAPENTIN 100 MG CAP PO SCH ×3 (09:54→20:32)
[2023-02-14] MEDS: METOPROLOL TARTRATE 12.5 MG TAB PO SCH ×2 (09:54→20:32)
[2023-02-14] MEDS: FAMOTIDINE 20 MG TAB PO SCH (09:54)
[2023-02-14 11:31] LABS: Glucose,Whole Blood 153 mg/dL (70-110)
--- NOTE | 2023-02-14 11:36 | P.PN ---
Subjective Patient is seen for follow-up for acute kidney injury. He was admitted to the hospital with acute hypoxic respiratory failure and worsening lower extremity swelling. Patient is currently being diuresed. Urine output has improved and is currently at 150-370 mL per hour. Respiratory status significantly improved today. Patient is off of BiPAP and maintained on nasal cannula at 3 L. Serum creatinine at 2.3 from 2.9 on admission. No previous labs available for comparison. Objective - Vital Signs Vital signs: Vital Signs Temp 96.4 F L 02/14/23 04:00 Pulse 77 02/14/23 08:23 Resp 24 02/14/23 08:23 BP 144/108 02/14/23 07:00 Pulse Ox 89 L 02/14/23 07:00 FiO2 40 02/14/23 08:09 Intake & Output 02/13/23 02/14/23 02/14/23 18:59 06:59 18:59 Intake Total 479.450 585.387 Output Total 20140 Balance -7422.493 -8752.487 Weight 143.8 kg 140.9 kg Intake: IV 300 390 NS 300 390 Intake, IV Titration 179.450 195.387 Amount Dexmedetomidine/0.9% NaCl 79.450 195.387 (Pmx) 400 mcg In Empty Bag 1 bag @ 0.2 MCG/KG/HR 7.19 mls/hr IV .[id number] [facility] Rx#:[id number] Thiamine 100 mg In Sodium 100 Chloride 0.9% 50 ml @ 100 mls/hr IVPB Q24HR [facility] Rx#:[id number] Output: Urine 2014 2659 Other: Voiding Method Indwelling Catheter Indwelling Catheter # Bowel Movements 2 ABP, PAP, CO, CI - Last Documented Arterial Blood Pressure 140/82 - Exam Patient is awake, he is currently on BiPAP. 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 exam grossly intact - Labs CBC & Chem 7: 02/14/23 04:15 02/14/23 04:15 Labs: Abnormal Lab Results - Last 24 Hours (Table) 02/13/23 02/13/23 02/13/23 Range/Units 11:29 11:45 12:05 Hct (39.0-53.0) % MCV (80.0-100.0) fL Plt Count (150-450) k/uL Lymphocytes # (1.0-4.8) k/uL ABG pH 7.28 L (7.35-7.45) ABG pCO2 63 H (35-45) mmHg ABG pO2 74 L (83-108) mmHg ABG HCO3 29 H (21-25) mmol/L ABG Total CO2 31 H (19-24) mmol/L ABG O2 Saturation 93.0 L (94-97) % BUN (9-20) mg/dL Creatinine (0.66-1.25) mg/dL Glucose (74-99) mg/dL POC Glucose (mg/dL) 175 H (70-110) mg/dL Calcium (8.4-10.2) mg/dL Urine Blood Large H (Negative) Ur Leukocyte Esterase Moderate H (Negative) Urine RBC 170 H (0-5) /hpf Urine Bacteria Occasional H (None) /hpf Hyaline Casts 6 H (0-2) /lpf Urine Mucus Rare H (None) /hpf 02/13/23 02/13/23 02/14/23 Range/Units 16:39 23:46 04:15 Hct 55.5 H (39.0-53.0) % MCV 104.8 H D (80.0-100.0) fL Plt Count 101 L (150-450) k/uL Lymphocytes # 0.4 L (1.0-4.8) k/uL ABG pH (7.35-7.45) ABG pCO2 (35-45) mmHg ABG pO2 (83-108) mmHg ABG HCO3 (21-25) mmol/L ABG Total CO2 (19-24) mmol/L ABG O2 Saturation (94-97) % BUN (9-20) mg/dL Creatinine (0.66-1.25) mg/dL Glucose (74-99) mg/dL POC Glucose (mg/dL) 123 H 135 H (70-110) mg/dL Calcium (8.4-10.2) mg/dL Urine Blood (Negative) Ur Leukocyte Esterase (Negative) Urine RBC (0-5) /hpf Urine Bacteria (None) /hpf Hyaline Casts (0-2) /lpf Urine Mucus (None) /hpf 08/05/23 08/05/23 Range/Units 04:15 11:30 Hct (39.0-53.0) % MCV (80.0-100.0) fL Plt Count (150-450) k/uL Lymphocytes # (1.0-4.8) k/uL ABG pH (7.35-7.45) ABG pCO2 (35-45) mmHg ABG pO2 (83-108) mmHg ABG HCO3 (21-25) mmol/L ABG Total CO2 (19-24) mmol/L ABG O2 Saturation (94-97) % BUN 84 H (9-20) mg/dL Creatinine 2.34 H (0.66-1.25) mg/dL Glucose 154 H (74-99) mg/dL POC Glucose (mg/dL) 153 H (70-110) mg/dL Calcium 10.3 H (8.4-10.2) mg/dL Urine Blood (Negative) Ur Leukocyte Esterase (Negative) Urine RBC (0-5) /hpf Urine Bacteria (None) /hpf Hyaline Casts (0-2) /lpf Urine Mucus (None) /hpf Assessment and Plan Assessment: 1. Acute kidney injury cardiorenal and due to low blood pressure and possible underlying ischemic ATN. Currently nonoliguric. UA shows large blood no protein. It is a Gordon specimen. No evidence of obstruction on ultrasound. 2. Chronic kidney disease with unknown baseline renal function. Possibly stage IV. 3. Acute systolic CHF. Previous ejection fraction 40-45% in 2019 4. COPD with acute exacerbation 5. Acute hypoxic respiratory failure secondary to CHF and COPD exacerbation 6. Volume overload 7. Hyperkalemia associated with acute kidney injury. No evidence of obstructive uropathy. Blood sugar is not significantly elevated. We will continue to treat with IV medications. DC Kayexalate. 8. Mild hypercalcemia, obtain basic workup. No calcium supplements noted. Plan: Continue with IV Lasix Avoid hypotension Repeat labs in a.m. Check PTH, vitamin D levels
[2023-02-14] MEDS: THIAMINE 100 MG in SODIUM CHLORIDE 0.9% 50 ML IVPB SCH (11:45)
--- NOTE | 2023-02-14 12:17 | PN ---
PROGRESS NOTE SUBJECTIVE: Hemant is a 72-year-old gentleman with history of morbid obesity, COPD, permanent atrial fibrillation, renal failure and congestive heart failure, who is admitted to hospital with acute exacerbation of chronic congestive heart failure and acute on chronic renal failure and he has permanent atrial fibrillation. He also has significant encephalopathy on initial presentation. This morning, he appears much better. He is on 3 L of nasal cannula, stable hemodynamically. OBJECTIVE: GENERAL: On exam, comfortable at rest. VITAL SIGNS: Stable. CHEST: Reveals diminished air entry at the bases. HEART: Reveals first and second heart sounds. Systolic murmur at the apex. ABDOMEN: Soft. EXTREMITIES: Revealed mild edema. Peripheral pulses are felt. LABORATORY DATA: Labs show BUN of 84, creatinine is 2.3, potassium is 4.6, and hemoglobin is 17.5. The patient is currently on Eliquis 5 b.i.d., Lipitor 80 mg daily, Lasix 60 IV q.8, Neurontin, Ativan, Lopressor 12.5 b.i.d. ASSESSMENT AND PLAN: Acute on chronic renal failure, acute exacerbation of chronic systolic heart failure, hyperkalemia and renal failure. We will treat with IV Lasix and continue rest of the medications at this time. MMODL / IJN: [id number] /
[2023-02-14 16:02] LABS: Glucose,Whole Blood 127 mg/dL (70-110)
[2023-02-14] MEDS: LORazepam 2 MG/ML INJ IV PRN ×3 (16:26→22:20)
[2023-02-15] MEDS: FUROSEMIDE 10 MG/ML 10 ML VIAL IV SCH ×4 (00:15→20:54)
[2023-02-15] MEDS: methylPREDNISolone SOD SUCCI 125 MG/2 ML VIAL IV SCH ×2 (00:15→06:16)
[2023-02-15 03:55] LABS: African American GFR (CKD) 39 (>60 ml/min/1.73 sqM); Anion Gap 7 mmol/L; Blood Urea Nitrogen 83 mg/dL (9-20); Calcium 9.9 mg/dL (8.4-10.2); Carbon Dioxide 32 mmol/L (22-30); Chloride 103 mmol/L (98-107); Glucose 161 mg/dL (74-99); HGB 17.6 gm/dL (13.0-17.5); Hypochromasia Moderate; MCH 32.9 pg (25.0-35.0); MCHC 31.7 g/dL (31.0-37.0); MCV 103.8 fL (80.0-100.0); Macrocytosis Slight; Mean Platelet Volume 9.8; Non-African American GFR(CKD) 34 (>60 ml/min/1.73 sqM); Platelet Count 101 k/uL (150-450); Potassium 3.8 mmol/L (3.5-5.1); RBC 5.36 m/uL (4.30-5.90); RDW 14.2 % (11.5-15.5); Sodium 142 mmol/L (137-145); WBC 9.3 k/uL (3.8-10.6)
[2023-02-15 03:56] LABS: HCT 55.6 % (39.0-53.0)
[2023-02-15] MEDS ORDERED: POTASSIUM CHLORIDE ER 20 MEQ TAB.ER PO STA (07:47)
--- NOTE | 2023-02-15 08:16 | P.PN ---
Subjective Progress Note Date: 02/15/23 This is a 72-year-old male patient, morbidly obese, known history of COPD, congestion heart failure, chronic atrial fibrillation and chronic kidney disease, presented to us from [facility]. The patient presented there with increased shortness of breath. Apparently the patient has not been taking his diuretics this has been discontinued due to concerns of his renal dysfunction. The patient went to [facility] and subsequently transferred to us, admitted to the medical floor, he was found to be quite lethargic in significant respiratory distress. He was placed on a BiPAP of 16/6 cm of water and FiO2 of 40%. The blood gas prior to that showed a pH of 7.17 with a pCO2 of 73 and pO2 of 111. Subsequent blood gas from 2 AM showed a pH of 7.19 with a pCO2 of 70 and pO2 of 78. Chest x-ray shows cardiac megaly, pulmonary vessel congestion and no clear airspace disease or pulmonary infiltrates noted. The patient has quite encephalopathic and lethargic at this point in time. He is status with the BiPAP. He is generating a tidal volume of 462 with a respiratory rate of 23. Minute ventilation is around 10.8. His blood work shows a WD count of 7.8 with a hemoglobin 16.5 and a platelet count of 136. BUN is at 28 with a creatinine of 2.8 and the sodium levels of 142. Potassium level was as high as 6.4, treated with potassium cocktail and the subsequent level today is at 6.0. Calcium level is mildly elevated at 10.4. LFTs are normal, proBNP level is 16,100 and the troponins are negative. EKG showing a atrial fibrillation rhythm with a right bundle branch block pattern. Noted the patient has been maintained on anticoagulation with Eliquis on outpatient basis and I'm assuming this was given to him for chronic atrial fibrillation. He does have asymmetric lower extremity edema worse on the left. He has a Gordon catheter in place. He is also known to be alcoholic. He has stated that he really paralyzed on a daily basis. He was also stated that he goes into withdrawal was while not drinking for few days. Overnight, the patient was given IV Lasix. He is still on Lasix 40 mg IV every 8 hours. He is producing adequate amount of urine output. Urine output has been -1.4 L over the past 8 hours. Today's evaluation of 02/14/2023, the patient is still on a BiPAP at a pressure of 16/6 cm of water with FiO2 40%. The patient was kept on BiPAP throughout the night yesterday. This morning his generating adequate tidal volumes. He is comfortable on Precedex which is running at 0.4 mcg/kg/m. No agitation. No signs of any delirium tremens and needs communicating appropriately. The patient has diabetes adequate over the past 24 hours while being on IV Lasix. Fluid balance is -3.6 L over the past 24 hours. The patient's BUN is down to 84 with a creatinine of 2.3. The white cell count of 8.5 with a hemoglobin of 17.5. Ultrasound the lower extremities was done and it showed no evidence of any DVTs. Ultrasound the kidneys showed no evidence of any hydronephrosis. The echocardiogram was also done yesterday and the patient was found to have a preserved LV function with an ejection fraction of 55-60%. There was moderate degree of aortic stenosis with a mean gradient of 29. Mild tricuspid regurgitation. Moderate pulmonary hypertension with a pulmonary artery pressures estimated to be at 43. Gordon cath is in place. The patient's cardiac rhythm is atrial fibrillation. The patient remains on anticoagulation with Eliquis. The patient is also on metoprolol 12.5 mg by mouth twice a day and the rate is on the adequate control for now. He remains on bronchodilators. 02/15/2023, the patient is on oxygen at 2 L. The patient has diuresed more over the past 24 hours and the patient is in negative fluid balance of -5.9 L and ov erall fluid balance is -10 L since the patient came into the hospital or at least more than 10 L. His weight is down to 140 kg. He is currently on 2 L L O2 and is doing welland overnight the patient utilized the BiPAP without any major difficulties. His chest x-ray from today is showing improvement in the volume status. There is still increased interstitial edema and bilateral pleural effusions also seen in the lung bases. The patient is receiving Lasix at a dose of 60 mg IV every 8. His cardiac rhythm is a chest fibrillation. Rate is controlled and the patient remains on metoprolol 12.5 mg twice a day. Remains on anticoagulation with Eliquis. Remains on bronchodilators and steroids. The patient was taken off Precedex as the patient has no active signs of bleeding in terms of this point in time. He has history of alcoholism. His echo cardiac exam showed diastolic heart failure with right-sided enlargement as stated earlier. No other significant events overnight.labs from today shows a BUN of 83, creatinine continues to improve as down to 1.9. Sodium levels of 142. White cell count is at 9.3 with a hemoglobin of 17.6 and a platelet count of 101. Objective - Vital Signs Vital signs: Vital Signs Temp 98.4 F 02/15/23 08:00 Pulse 82 02/15/23 08:00 Resp 21 02/15/23 08:00 BP 128/86 02/15/23 08:00 Pulse Ox 96 02/15/23 08:00 FiO2 40 02/15/23 04:00 Intake & Output 02/14/23 02/15/23 02/15/23 18:59 06:59 18:59 Intake Total 969.894 329.699 40 Output Total 4500 2750 525 Balance -3530.106 -2420.301 -485 Weight 140.3 kg Intake: IV 352 243 40 .9 3cc/ hr brien 32 3 NS 220 240 40 Thiamine 100 mg In Sodium 100 Chloride 0.9% 50 ml @ 100 mls/hr IVPB Q24HR [facility] Rx#:[id number] Intake, IV Titration 177.894 86.699 Amount Dexmedetomidine/0.9% NaCl 177.894 86.699 (Pmx) 400 mcg In Empty Bag 1 bag @ 0.2 MCG/KG/HR 7.19 mls/hr IV .[id number] [facility] Rx#:[id number] Oral 440 Output: Urine 4500 2750 525 Other: Voiding Method Indwelling Catheter Indwelling Catheter Indwelling Catheter ABP, PAP, CO, CI - Last Documented Arterial Blood Pressure 114/70 - Exam The patient is currently awake and responsive and he on 2 L of oxygen by nasal cannula Head exam was generally normal. There was no scleral icterus or corneal arcus. Mucous membranes were moist. Neck is short and the patient has significant crowding of the posterior oropharynx, poor dental condition, crowding of the posterior oropharynx with a Mallampati class IV Lungs diminished breath sounds bilaterally and the patient diffuse expiratory wheezes throughout the lung dumont Heart sounds are irregular, consistent with atrial fibrillation, no significant murmurs appreciated Abdomen is distended and soft. No direct tenderness. No rebound tenderness. No guarding. Lower extremities are showed +1 edema, asymmetric slightly worse on the left, no open wounds or sores. No cyanosis or clubbing. Examination of the skin revealed no evidence of significant rashes, suspicious appearing nevi or other concerning lesions. Neurologically the patient is awake and alert, moving all 4 extremities and grimacing to painful stimulation. Answering questions appropriately at this point in time. He was unable reactive to light. No facial asymmetry. - Labs CBC & Chem 7: 02/15/23 03:30 02/15/23 03:30 Labs: Abnormal Lab Results - Last 24 Hours (Table) 02/14/23 02/14/23 02/14/23 Range/Units 11:30 11:55 16:00 Hgb (13.0-17.5) gm/dL Hct (39.0-53.0) % MCV (80.0-100.0) fL Plt Count (150-450) k/uL Carbon Dioxide (22-30) mmol/L BUN (9-20) mg/dL Creatinine (0.66-1.25) mg/dL Glucose (74-99) mg/dL POC Glucose (mg/dL) 153 H 127 H (70-110) mg/dL PTH Intact 233.0 H (14.0-72.0) pg/mL 02/15/23 02/15/23 Range/Units 03:30 03:30 Hgb 17.6 H (13.0-17.5) gm/dL Hct 55.6 H (39.0-53.0) % MCV 103.8 H (80.0-100.0) fL Plt Count 101 L (150-450) k/uL Carbon Dioxide 32 H (22-30) mmol/L BUN 83 H (9-20) mg/dL Creatinine 1.95 H (0.66-1.25) mg/dL Glucose 161 H (74-99) mg/dL POC Glucose (mg/dL) (70-110) mg/dL PTH Intact (14.0-72.0) pg/mL Assessment and Plan Plan: Acute on chronic hypoxic/hypercapnic respiratory failure due to COPD/CHF exacerbation. The patient is currently off BiPAP. Clinically improved. No signs of any CO2 narcosis. No significant agitation and the patient remains on Precedex. The patient was kept on BiPAP overnight and the patient was diuresed and his volume status is also improved.chest x-rays improving. Volume status is improving. Currently on 2 L O2 nasal cannula Shortness of breath secondary to above, improving COPD, chronic, severity is not known. Suspect chronic hypoxemia related to COPD, currently on 2 L of oxygen by nasal cannula CHF with elevated proBNP level. Consider possibility of diastolic heart failure, consider possibility of a right-sided heart failure due to chronic COPD features of obstructive sleep apnea. The patient has preserved LV function, moderate degree of aortic stenosis and moderate pulmonary hypertension Moderate aortic stenosis Morbid obesity Chronic A. fib, rate is controlled for now and the patient is on anti- coagulation with Eliquis. Chronic kidney disease Acute hyperkalemia, treated Alcoholism, currently off Precedex Chronic lower extremity edema, asymmetric, Doppler of the lower extremity is negative and the patient has improvement in edema, improving Features of obstructive sleep apnea Hyperlipidemia Alcoholism Plan use BiPAP overnight Keep the patient on 2 L O2 nasal cannula off Precedex and continue watching for any signs of vitiligo troponins Continue IV Lasix 60 mg an lower dose to every 12 hours for another 24 hours Continue DuoNeb about treatments [id number] Continue Pulmicort Respules discontinue IV Solu-Medrol Keep the Gordon catheter in place and monitor urine output Obtain ultrasound the kidneys, no hydronephrosis Obtain Doppler of the lower extremities, no DVTs No need for antibiotic coverage at this point in time Obtain echocardiogram, showing moderate degree of aortic stenosis Cardiology consultation Patient is able to swallow his oral pills today We'll establish a triple-lumen catheter Continue thiamine 100 mg IV every 24 hours the form of IV piggybacks May transfer out of the later stage today
--- NOTE | 2023-02-15 08:25 | XR ---
EXAMINATION TYPE: XR chest 1V DATE OF EXAM: 02/15/2023 COMPARISON: 02/12/2023 INDICATION: Acute respiratory failure TECHNIQUE: Single frontal view of the chest is obtained. FINDINGS: The heart size is normal. The pulmonary vasculature is normal. Silhouetting left diaphragm is present. Retrocardiac space is poorly visualized. Correlate for retroc ardiac infiltrate. Small left pleural effusion may be present. Mild right lower lobe infiltrate may b e present. Consider atelectasis or pneumonia. IMPRESSION: 1. Retrocardiac infiltrate with small left pleural effusion. Follow-up is recommended. 2. Mild atelectasis or pneumonia right lung base
[2023-02-15] MEDS: BUDESONIDE 0.5 MG/2 ML NEBU INHALATION SCH ×2 (08:48→20:42)
[2023-02-15] MEDS: IPRATROPIUM-ALBUTEROL 3 ML NEB INHALATION PRN ×2 (08:48→20:42)
[2023-02-15] MEDS: MONTELUKAST 10 MG TAB PO SCH (09:11)
[2023-02-15] MEDS: MULTIVITAMINS, THERA 1 EACH TAB PO SCH (09:11)
[2023-02-15] MEDS: FAMOTIDINE 20 MG TAB PO SCH (09:11)
[2023-02-15] MEDS: ATORVASTATIN 80 MG TAB PO SCH (09:11)
[2023-02-15] MEDS: allopurinoL 100 MG TAB PO SCH (09:11)
[2023-02-15] MEDS: METOPROLOL TARTRATE 12.5 MG TAB PO SCH ×2 (09:11→20:54)
[2023-02-15] MEDS: GABAPENTIN 100 MG CAP PO SCH ×3 (09:11→20:55)
[2023-02-15] MEDS: APIXABAN 5 MG TAB PO SCH ×2 (09:11→20:54)
[2023-02-15] MEDS: THIAMINE 100 MG TAB PO SCH (09:53)
--- NOTE | 2023-02-15 11:11 | P.PN ---
Subjective Patient is seen for follow-up for acute kidney injury. He was admitted to the hospital with acute hypoxic respiratory failure and worsening lower extremity swelling. Patient is currently being diuresed. Urine output has improved and is currently at 200-370 mL per hour. Respiratory status significantly improved since admission. Patient is off of BiPAP and maintained on nasal cannula at 2 L. Serum creatinine at 1.9 from 2.9 on admission. No previous labs available for comparison. Lasix decreased to 60 mg every 12 hours. Objective - Vital Signs Vital signs: Vital Signs Temp 98.4 F 02/15/23 08:00 Pulse 93 02/15/23 08:59 Resp 21 02/15/23 08:00 BP 128/86 02/15/23 08:00 Pulse Ox 96 02/15/23 08:00 FiO2 40 02/15/23 04:00 Intake & Output 02/14/23 02/15/23 02/15/23 18:59 06:59 18:59 Intake Total 969.894 329.699 40 Output Total 4500 2750 1075 Balance -3530.106 -2420.301 -1035 Weight 140.3 kg Intake: IV 352 243 40 .9 3cc/ hr brien 32 3 NS 220 240 40 Thiamine 100 mg In Sodium 100 Chloride 0.9% 50 ml @ 100 mls/hr IVPB Q24HR [facility] Rx#:[id number] Intake, IV Titration 177.894 86.699 Amount Dexmedetomidine/0.9% NaCl 177.894 86.699 (Pmx) 400 mcg In Empty Bag 1 bag @ 0.2 MCG/KG/HR 7.19 mls/hr IV .[id number] [facility] Rx#:[id number] Oral 440 Output: Urine 4500 2750 1075 Other: Voiding Method Indwelling Catheter Indwelling Catheter Indwelling Catheter ABP, PAP, CO, CI - Last Documented Arterial Blood Pressure 114/70 - Exam Patient is awake, he is comfortable. No acute distress. Answers questions fairly appropriately. A and O 2. Examination of the heart S1 and S2 Examination of the lungs bilateral breath sounds are heard with wheezing Abdomen is soft morbidly obese Examination of lower extremities shows chronic edema 2+ bilaterally KISS MIXER exam grossly intact - Labs CBC & Chem 7: 02/15/23 03:30 02/15/23 03:30 Labs: Abnormal Lab Results - Last 24 Hours (Table) 02/14/23 02/14/23 02/14/23 Range/Units 11:30 11:55 16:00 Hgb (13.0-17.5) gm/dL Hct (39.0-53.0) % MCV (80.0-100.0) fL Plt Count (150-450) k/uL Carbon Dioxide (22-30) mmol/L BUN (9-20) mg/dL Creatinine (0.66-1.25) mg/dL Glucose (74-99) mg/dL POC Glucose (mg/dL) 153 H 127 H (70-110) mg/dL PTH Intact 233.0 H (14.0-72.0) pg/mL 02/15/23 02/15/23 Range/Units 03:30 03:30 Hgb 17.6 H (13.0-17.5) gm/dL Hct 55.6 H (39.0-53.0) % MCV 103.8 H (80.0-100.0) fL Plt Count 101 L (150-450) k/uL Carbon Dioxide 32 H (22-30) mmol/L BUN 83 H (9-20) mg/dL Creatinine 1.95 H (0.66-1.25) mg/dL Glucose 161 H (74-99) mg/dL POC Glucose (mg/dL) (70-110) mg/dL PTH Intact (14.0-72.0) pg/mL Assessment and Plan Assessment: 1. Acute kidney injury cardiorenal and due to low blood pressure and possible underlying ischemic ATN. Currently nonoliguric. UA shows large blood no protein. It is a Gordon specimen. No evidence of obstruction on ultrasound. 2. Chronic kidney disease with unknown baseline renal function. Possibly stage IIIB 3. Acute systolic CHF. Previous ejection fraction 40-45% in 2019 4. COPD with acute exacerbation 5. Acute hypoxic respiratory failure secondary to CHF and COPD exacerbation 6. Volume overload 7. Hyperkalemia associated with acute kidney injury. No evidence of obstructive uropathy. Blood sugar is not significantly elevated. We will continue to treat with IV medications. DC Kayexalate. 8. Mild hypercalcemia, No calcium supplements noted. Workup shows significantly elevated PTH for a calcium of 10.3 suggesting underlying primary hyperparathyroidism. Serum calcium has improved to 9.9 today. This will need to be further followed as outpatient with a nuclear scan of the parathyroid glands and repeat PTH levels once the acute kidney injury is resolved. Plan: Continue with IV Lasix Avoid hypotension Repeat labs in a.m. Workup for possible underlying primary hyperparathyroidism down the road as outpatient.
--- NOTE | 2023-02-15 12:11 | PN ---
PROGRESS NOTE SUBJECTIVE: Hemant is a 72-year-old gentleman, who is admitted to hospital with permanent atrial fibrillation, renal failure, acute exacerbation of chronic congestive heart failure, and COPD. He remains in atrial fibrillation with better controlled ventricular rate and the encephalopathy that he initially had has resolved. He is appearing much better, leg edema has improved, and he denies any other symptoms. PHYSICAL EXAMINATION: GENERAL: This morning, he is comfortable at rest. VITAL SIGNS: Stable. CHEST: Reveals diminished air entry at the bases. HEART: Reveals first and second heart sounds and systolic murmur at the apex. ABDOMEN: Soft. EXTREMITIES: Reveal mild edema. LABORATORY DATA: Labs show a hemoglobin of 17.6, potassium is 3.8, BUN is 83, and creatinine is 1.95. CURRENT MEDICATIONS: Include: 1. Eliquis 5 b.i.d. 2. Lipitor 80 mg daily. 3. Pepcid. 4. Lasix 60 IV q.12. 5. Lopressor 12.5 b.i.d. ASSESSMENT: 1. Permanent atrial fibrillation with controlled ventricular rate. 2. Acute exacerbation of chronic systolic heart failure. 3. Acute on chronic renal failure. 4. Hyperkalemia. PLAN: I will continue the patient on current medications. I am going to let Nephrology adjust the diuretic therapy at this time. MMODL / IJN: [id number] /
--- NOTE | 2023-02-15 16:46 | P.PN ---
Subjective Progress Note Date: 02/14/23 72-year-old male with history of CHF, COPD, chronic kidney disease. He presented to [facility] with a complaint of shortness of breath. Apparently one of his physicians had decreased his diuretic due to worsening kidney function, he reports he's been 20-30 pounds over the past month. This mo rning he felt as though he just couldn't breathe at all and when he arrived at [place] his oxygen saturation was in the 50s. He was treated with BiPAP and breathing treatments as well as Lasix. He was able to be weaned down to nasal cannula but was transferred to our facility for further management admission for congestive heart failure exacerbation and COPD exacerbation. Patient denies any chest pain or palpitations. Of note the patient is an alcoholic reports daily drinking of 1 L of vodka he states that he does not have withdrawal symptoms on days that he does not drink when he is hospitalized. Blood work completed in ED reveals WBC 6.4, hemoglobin of 16.9 and hematocrit 55.2. Platelet count of 136, sodium 140, potassium 5.9, BUN/creatinine of 83/2.93; lactic acid level of 0.8 Potassium level was as high as 6.4, treated with potassium cocktail and the subsequent level today is at 6.0. Calcium level is mildly elevated at 10.4. LFTs are normal, proBNP level is 16,100 and the troponins are negative. EKG showing a atrial fibrillation rhythm with a right bundle branch block pattern. Noted the patient has been maintained on anticoagulation with Eliquis on outpatient basis and I'm assuming this was given to him for chronic atrial fibrillation. Overnight, the patient was given IV Lasix. He is still on Lasix 40 mg IV every 8 hours. He is producing adequate amount of urine output. Urine output has been -1.4 L over the past 8 hours. Objective - Vital Signs Vital signs: Vital Signs Temp 95.9 F L 02/14/23 12:00 Pulse 76 02/14/23 12:00 Resp 22 02/14/23 12:00 BP 148/96 02/14/23 08:00 Pulse Ox 94 L 02/14/23 12:00 FiO2 40 02/14/23 09:00 Intake & Output 02/13/23 02/14/23 02/14/23 18:59 06:59 18:59 Intake Total 479.450 585.387 778.917 Output Total 2014 2659 2350 Balance -5249.550 -3794.613 -3811.083 Weight 143.8 kg 140.9 kg Intake: IV 300 390 250 NS 300 390 150 Thiamine 100 mg In Sodium 100 Chloride 0.9% 50 ml @ 100 mls/hr IVPB Q24HR [facility] Rx#:[id number] Intake, IV Titration 179.450 195.387 88.917 Amount Dexmedetomidine/0.9% NaCl 79.450 195.387 88.917 (Pmx) 400 mcg In Empty Bag 1 bag @ 0.2 MCG/KG/HR 7.19 mls/hr IV .[id number] [facility] Rx#:[id number] Thiamine 100 mg In Sodium 100 Chloride 0.9% 50 ml @ 100 mls/hr IVPB Q24HR [facility] Rx#:[id number] Oral 440 Output: Urine 2014 2660 2350 Other: Voiding Method Indwelling Catheter Indwelling Catheter Indwelling Catheter # Bowel Movements 2 ABP, PAP, CO, CI - Last Documented Arterial Blood Pressure 137/73 - Exam Head exam was generally normal. There was no scleral icterus or corneal arcus. Mucous membranes were moist. Neck is short and the patient has significant crowding of the posterior oropharynx, poor dental condition, crowding of the posterior oropharynx with a Mallampati class IV Lungs diminished breath sounds bilaterally and the patient diffuse expiratory wheezes throughout the lung dumont Heart sounds are irregular, consistent with atrial fibrillation, no significant murmurs appreciated Abdomen is distended and soft. No direct tenderness. No rebound tenderness. No guarding. Lower extremities are showed +1 edema, asymmetric slightly worse on the left, no open wounds or sores. No cyanosis or clubbing. Examination of the skin revealed no evidence of significant rashes, suspicious appearing nevi or other concerning lesions. Neurologically the patient is awake and alert, moving all 4 extremities and grimacing to painful stimulation. Answering questions appropriately at this point in time. He was unable reactive to light. No facial asymmetry. - Labs CBC & Chem 7: 02/15/23 03:30 02/15/23 03:30 Labs: Abnormal Lab Results - Last 24 Hours (Table) 02/13/23 02/13/23 02/14/23 Range/Units 16:39 23:46 04:15 Hct 55.5 H (39.0-53.0) % MCV 104.8 H D (80.0-100.0) fL Plt Count 101 L (150-450) k/uL Lymphocytes # 0.4 L (1.0-4.8) k/uL BUN (9-20) mg/dL Creatinine (0.66-1.25) mg/dL Glucose (74-99) mg/dL POC Glucose (mg/dL) 123 H 135 H (70-110) mg/dL Calcium (8.4-10.2) mg/dL 02/14/23 02/14/23 Range/Units 04:15 11:30 Hct (39.0-53.0) % MCV (80.0-100.0) fL Plt Count (150-450) k/uL Lymphocytes # (1.0-4.8) k/uL BUN 84 H (9-20) mg/dL Creatinine 2.34 H (0.66-1.25) mg/dL Glucose 154 H (74-99) mg/dL POC Glucose (mg/dL) 153 H (70-110) mg/dL Calcium 10.3 H (8.4-10.2) mg/dL Assessment and Plan Assessment: 1. Acute on chronic hypoxic/hypercapnic respiratory failure; multifactorial -- Related to COPD/CHF exacerbation - Patient is currently on BiPAP; blood gases are being followed up which revealed acute on chronic hypercapnic respiratory failure 2. Acute exacerbation CHF; elevated BNP -- patient was placed on Lasix 40 mg IV every 8 hours which has been escalated by nephrology, up to 60 mg 3 times a day 3. Acute exacerbation COPD; Singulair 10 mg daily; DuoNeb nebulizer treatments 4 times a day and when necessary; Pulmicort nebulizer treatment twice a day; 4. Acute hyperkalemia; patient is on potassium supplementation at home, came to 20 mEq daily; potassium supplement placed on hold; we will monitor electrolytes closely; patient received Kayexalate, 1 amp of dextrose with 10 units of IV insulin; whenever of calcium gluconate; we will continue to monitor electrolytes closely 5. Chronic A. fib, rate is controlled for now on metoprolol 25 mg 3 times a day and the patient is on anti-coagulation with Eliquis 6. Alcohol abuse/pending withdrawal; patient has been placed on IV Ativan per [facility] protocol; thiamine 100 mg daily 7. Hypertension; metoprolol 25 mg 3 times a day 8. Hyperlipidemia; Lipitor 80 mg by mouth daily at bedtime DVT prophylaxis; SCDs/systemic anticoagulation CODE STATUS; full code
--- NOTE | 2023-02-15 16:48 | P.PN ---
Subjective Progress Note Date: 02/15/23 Principal diagnosis: Acute on chronic hypoxic/hypercapnic respiratory failure due to COPD/CHF exacerbation 72-year-old male with history of CHF, COPD, chronic kidney disease. He presented to [facility] with a complaint of shortness of breath. Apparently one of his physicians had decreased his diuretic due to worsening kidney function, he reports he's been 20-30 pounds over the past month. This morning he felt as though he just couldn't breathe at all and when he arrived at [place] his oxygen saturation was in the 50s. He was treated with BiPAP and breathing treatments as well as Lasix. He was able to be weaned down to nasal cannula but was transferred to our facility for further management admission for congestive heart failure exacerbation and COPD exacerbation. Patient denies any chest pain or palpitations. Of note the patient is an alcoholic reports daily drinking of 1 L of vodka he states that he does not have withdrawal symptoms on days that he does not drink when he is hospitalized. Blood work completed in ED reveals WBC 6.4, hemoglobin of 16.9 and hematocrit 55.2. Platelet count of 136, sodium 140, potassium 5.9, BUN/creatinine of 83/2.93; lactic acid level of 0.8 Potassium level was as high as 6.4, treated with potassium cocktail and the subsequent level today is at 6.0. Calcium level is mildly elevated at 10.4. LFTs are normal, proBNP level is 16,100 and the troponins are negative. EKG showing a atrial fibrillation rhythm with a right bundle branch block pattern. Noted the patient has been maintained on anticoagulation with Eliquis on outpatient basis and I'm assuming this was given to him for chronic atrial fibrillation. Overnight, the patient was given IV Lasix. He is still on Lasix 40 mg IV every 8 hours. He is producing adequate amount of urine output. Urine output has been -1.4 L over the past 8 hours. 02/15/2023, --patient is seen and evaluated in room at bedside; remains in ICU ; on oxygen at 2 L; overnight the patient utilized the BiPAP without any major difficulties. His chest x-ray from today is showing improvement in the volume status. There is still increased interstitial edema and bilateral pleural effusions also seen in the lung bases. The patient is receiving Lasix at a dose of 60 mg IV every 8. His cardiac rhythm is a chest fibrillation. Rate is controlled and the patient remains on metoprolol 12.5 mg twice a day. Remains on anticoagulation with Eliquis. Remains on bronchodilators and steroids. The patient was taken off Precedex as the patient has no active signs of bleeding in terms of this point in time. He has history of alcoholism. His echo cardiac exam showed diastolic heart failure with right-sided enlargement as stated earlier. No other significant events overnight.labs from today shows a BUN of 83, creatinine continues to improve as down to 1.9. Sodium levels of 142. White cell count is at 9.3 with a hemoglobin of 17.6 and a platelet count of 101. -- Patient is recommended to continue to use BiPAP overnight; remains on O2 at 2 L per nasal cannula; continue IV Lasix 60 mg every 12 hours for another 24 hours; patient remains on IV Solu-Medrol along with DuoNeb and Pulmicort nebulizer treatments Objective - Vital Signs Vital signs: Vital Signs Temp 98 F 02/15/23 13:59 Pulse 78 02/15/23 13:59 Resp 20 02/15/23 13:59 BP 102/70 02/15/23 13:59 Pulse Ox 94 L 02/15/23 13:59 FiO2 40 02/15/23 04:00 Intake & Output 02/14/23 02/15/23 02/15/23 18:59 06:59 18:59 Intake Total 969.894 329.699 40 Output Total 4500 2750 1075 Balance -3530.106 -2420.301 -1035 Weight 140.3 kg Intake: IV 352 243 40 .9 3cc/ hr brien 32 3 NS 220 240 40 Thiamine 100 mg In Sodium 100 Chloride 0.9% 50 ml @ 100 mls/hr IVPB Q24HR GERTRUDIS Rx#:[id number] Intake, IV Titration 177.894 86.699 Amount Dexmedetomidine/0.9% NaCl 177.894 86.699 (Pmx) 400 mcg In Empty Bag 1 bag @ 0.2 MCG/KG/HR 7.19 mls/hr IV .[id number] GERTRUDIS Rx#:[id number] Oral 440 Output: Urine 4500 2750 1075 Other: Voiding Method Indwelling Catheter Indwelling Catheter Indwelling Catheter ABP, PAP, CO, CI - Last Documented Arterial Blood Pressure 114/70 - Exam Head exam was generally normal. There was no scleral icterus or corneal arcus. Mucous membranes were moist. Neck is short and the patient has significant crowding of the posterior oropharynx, poor dental condition, crowding of the posterior oropharynx with a Mallampati class IV Lungs diminished breath sounds bilaterally and the patient diffuse expiratory wheezes throughout the lung dumont Heart sounds are irregular, consistent with atrial fibrillation, no significant murmurs appreciated Abdomen is distended and soft. No direct tenderness. No rebound tenderness. No guarding. Lower extremities are showed +1 edema, asymmetric slightly worse on the left, no open wounds or sores. No cyanosis or clubbing. Examination of the skin revealed no evidence of significant rashes, suspicious appearing nevi or other concerning lesions. Neurologically the patient is awake and alert, moving all 4 extremities and grimacing to painful stimulation. Answering questions appropriately at this p oint in time. He was unable reactive to light. No facial asymmetry. - Labs CBC & Chem 7: 02/15/23 03:30 02/15/23 03:30 Labs: Abnormal Lab Results - Last 24 Hours (Table) 02/14/23 02/14/23 02/15/23 Range/Units 11:55 16:00 03:30 Hgb 17.6 H (13.0-17.5) gm/dL Hct 55.6 H (39.0-53.0) % MCV 103.8 H (80.0-100.0) fL Plt Count 101 L (150-450) k/uL Carbon Dioxide (22-30) mmol/L BUN (9-20) mg/dL Creatinine (0.66-1.25) mg/dL Glucose (74-99) mg/dL POC Glucose (mg/dL) 127 H (70-110) mg/dL PTH Intact 233.0 H (14.0-72.0) pg/mL 02/15/23 Range/Units 03:30 Hgb (13.0-17.5) gm/dL Hct (39.0-53.0) % MCV (80.0-100.0) fL Plt Count (150-450) k/uL Carbon Dioxide 32 H (22-30) mmol/L BUN 83 H (9-20) mg/dL Creatinine 1.95 H (0.66-1.25) mg/dL Glucose 161 H (74-99) mg/dL POC Glucose (mg/dL) (70-110) mg/dL PTH Intact (14.0-72.0) pg/mL Assessment and Plan Assessment: 1. Acute on chronic hypoxic/hypercapnic respiratory failure; multifactorial -- Related to COPD/CHF exacerbation - Patient is currently on BiPAP; blood gases are being followed up which revealed acute on chronic hypercapnic respiratory failure 2. Acute exacerbation CHF; elevated BNP -- patient was placed on Lasix 40 mg IV every 8 hours which has been escalated by nephrology, up to 60 mg 3 times a day 3. Acute exacerbation COPD; Singulair 10 mg daily; DuoNeb nebulizer treatments 4 times a day and when necessary; Pulmicort nebulizer treatment twice a day; 4. Acute hyperkalemia; patient is on potassium supplementation at home, came to 20 mEq daily; potassium supplement placed on hold; we will monitor electrolytes closely; patient received Kayexalate, 1 amp of dextrose with 10 units of IV insulin; whenever of calcium gluconate; we will continue to monitor electrolytes closely 5. Chronic A. fib, rate is controlled for now on metoprolol 25 mg 3 times a day and the patient is on anti-coagulation with Eliquis 6. Alcohol abuse/pending withdrawal; patient has been placed on IV Ativan per CIWA protocol; thiamine 100 mg daily 7. Hypertension; metoprolol 25 mg 3 times a day 8. Hyperlipidemia; Lipitor 80 mg by mouth daily at bedtime DVT prophylaxis; SCDs/systemic anticoagulation CODE STATUS; full code
[2023-02-15 21:36] LABS: Glucose,Whole Blood 100 mg/dL (70-110)
[2023-02-16 05:57] LABS: Glucose,Whole Blood 123 mg/dL (70-110)
[2023-02-16 08:05] VITALS: BP 128/74; RESP 18; TEMP 97.8
[2023-02-16] MEDS: THIAMINE 100 MG TAB PO SCH (08:07)
[2023-02-16] MEDS: METOPROLOL TARTRATE 12.5 MG TAB PO SCH (08:07)
[2023-02-16] MEDS: ATORVASTATIN 80 MG TAB PO SCH (08:07)
[2023-02-16] MEDS: FAMOTIDINE 20 MG TAB PO SCH (08:07)
[2023-02-16] MEDS: MONTELUKAST 10 MG TAB PO SCH (08:07)
[2023-02-16] MEDS: allopurinoL 100 MG TAB PO SCH (08:07)
[2023-02-16] MEDS: GABAPENTIN 100 MG CAP PO SCH ×2 (08:07→14:24)
[2023-02-16] MEDS: APIXABAN 5 MG TAB PO SCH (08:07)
[2023-02-16] MEDS: MULTIVITAMINS, THERA 1 EACH TAB PO SCH (08:07)
[2023-02-16] MEDS: BUDESONIDE 0.5 MG/2 ML NEBU INHALATION SCH ×2 (09:06→12:12)
[2023-02-16 09:47] LABS: Angiotensin-1 Converting Enz. 32 U/L (8-52)
--- NOTE | 2023-02-16 09:47 | P.PN ---
Subjective Progress Note Date: 02/16/23 History of present illness: This is a 2 year old male presented to the hospital with permanent atrial fibr illation, renal failure, acute exacerbation of chronic heart failure, COPD. Patient's atrial fibrillation is better controlled and encephalopathy has resolved. Much better. Lower extremity edema is improved. He states his breathing is better today. Patient is followed by nephrology for acute kidney injury. He is currently on Lasix 60 mg IV every 12 hours and diuresing well , Moderate aortic stenosis, mild tricuspid regurgitation moderate pulmonary hypertension Physical examination: Gen: This is a 72-year-old male. He is resting in a chair and appears to be comfortable at rest VS: reviewed HEENT: Head is atraumatic, normocephalic. Pupils equal, round. Sclerae is anicteric. LUNGS: Diminished bilaterally No intercostal retractions. HEART: Regular rate and rhythm. Systolic murmur. ABDOMEN: Soft EXTREMITIES: Mild pedal edema. Assessment: Permanent atrial fibrillation currently controlled her ventricular rate Acute on chronic diastolic heart failure Acute renal failure Chronic kidney disease Hyperkalemia COPD Plan: Continue current cardiac medications No cardiac workup indicated at this time Nephrology to manage diuretics Cardiology will sign off this case and follow on an as-needed basis. Please reconsult for any new concerns. Patient may follow-up in the office in one to 2 weeks. Nurse practitioner note has been reviewed, I agree with documented findings and plan of care. Patient was seen and examined. Objective - Vital Signs Vital signs: Vital Signs Temp 97.8 F 02/16/23 07:20 Pulse 85 02/16/23 07:20 Resp 18 02/16/23 07:20 BP 128/74 02/16/23 07:20 Pulse Ox 91 L 02/16/23 07:20 FiO2 40 02/16/23 03:10 Intake & Output 02/15/23 02/16/23 02/16/23 18:59 06:59 18:59 Intake Total 40 Output Total 2175 1600 Balance -2134 -1599 Intake: IV 40 NS 40 Output: Urine 2174 1600 Other: Voiding Method Indwelling Catheter Indwelling Catheter # Bowel Movements 1 ABP, PAP, CO, CI - Last Documented Arterial Blood Pressure 114/70 - Labs CBC & Chem 7: 02/15/23 03:30 02/15/23 03:30 Labs: Abnormal Lab Results - Last 24 Hours (Table) 02/16/23 Range/Units 05:55 POC Glucose (mg/dL) 123 H (70-110) mg/dL
--- NOTE | 2023-02-16 10:06 | P.PN ---
Subjective Patient is seen in follow-up for acute kidney injury. Renal function improving. Receiving IV Lasix. Nonoliguric. Oral intake.. No vomiting or diarrhea. Vital signs are stable. General: No acute distress. HEENT: Head exam is unremarkable. On nasal cannula. LUNGS: No audible rhonchi or wheezes. HEART: Rate and Rhythm are regular. ABDOMEN: Obese, nontender. EXTREMITITES: 1+ edema. Objective - Vital Signs Vital signs: Vital Signs Temp 97.8 F 02/16/23 07:20 Pulse 85 02/16/23 07:20 Resp 18 02/16/23 07:20 BP 128/74 02/16/23 07:20 Pulse Ox 91 L 02/16/23 07:20 FiO2 40 02/16/23 03:10 Intake & Output 02/15/23 02/16/23 02/16/23 18:59 06:59 18:59 Intake Total 40 Output Total 2175 1600 Balance -2135 -1600 Intake: IV 40 NS 40 Output: Urine 2175 1600 Other: Voiding Method Indwelling Catheter Indwelling Catheter # Bowel Movements 1 ABP, PAP, CO, CI - Last Documented Arterial Blood Pressure 114/70 - Labs CBC & Chem 7: 02/15/23 03:30 02/15/23 03:30 Labs: Abnormal Lab Results - Last 24 Hours (Table) 02/16/23 Range/Units 05:55 POC Glucose (mg/dL) 123 H (70-110) mg/dL Assessment and Plan Plan: Assessment: 1. Acute kidney injury secondary to ATN secondary to cardiorenal syndrome. No proteinuria on UA. Creatinine 2.93 on admission and down to 1.95 as of yesterday. No hydronephrosis noted on renal ultrasound. 2. Acute on chronic diastolic CHF and moderate pulmonary hypertension, moderate aortic stenosis. 3. Volume overload. 4. Chronic kidney disease. Need to establish baseline renal function. 5. Mild hypercalcemia. PTH elevated at 233, vitamin D 52, Eliseo level 32. Not on calcium or vitamin D supplementation. Concern for primary hyperparathyroidism. Will need parathyroid nuclear scan outpatient. 6. Acute hypoxic respiratory failure secondary to CHF and COPD. Plan: Maintain IV Lasix. Strict is and os. Low-salt diet and 1500 mL fluid restriction. Follow-up 120 5D3 level and serum/urine immunofixation.
[2023-02-16] MEDS: FUROSEMIDE 10 MG/ML 10 ML VIAL IV SCH (10:47)
[2023-02-16 11:17] LABS: Glucose,Whole Blood 97 mg/dL (70-110)
[2023-02-16] MEDS: IPRATROPIUM-ALBUTEROL 3 ML NEB INHALATION PRN ×2 (12:12→15:32)
--- NOTE | 2023-02-16 14:35 | P.PN ---
Subjective Progress Note Date: 02/16/23 This is a 72-year-old male patient, morbidly obese, known history of COPD, congestion heart failure, chronic atrial fibrillation and chronic kidney disease, presented to us from [facility]. The patient presented there with increased shortness of breath. Apparently the patient has not been taking his diuretics this has been discontinued due to concerns of his renal dysfunction. The patient went to [facility] and subsequently transferred to us, admitted to the medical floor, he was found to be quite lethargic in significant respiratory distress. He was placed on a BiPAP of 16/6 cm of water and FiO2 of 40%. The blood gas prior to that showed a pH of 7.17 with a pCO2 of 73 and pO2 of 111. Subsequent blood gas from 2 AM showed a pH of 7.19 with a pCO2 of 70 and pO2 of 78. Chest x-ray shows cardiac megaly, pulmonary vessel congestion and no clear airspace disease or pulmonary infiltrates noted. The patient has quite encephalopathic and lethargic at this point in time. He is status with the BiPAP. He is generating a tidal volume of 462 with a respiratory rate of 23. Minute ventilation is around 10.8. His blood work shows a WD count of 7.8 with a hemoglobin 16.5 and a platelet count of 136. BUN is at 28 with a creatinine of 2.8 and the sodium levels of 142. Potassium level was as high as 6.4, treated with potassium cocktail and the subsequent level today is at 6.0. Calcium level is mildly elevated at 10.4. LFTs are normal, proBNP level is 16,100 and the troponins are negative. EKG showing a atrial fibrillation rhythm with a right bundle branch block pattern. Noted the patient has been maintained on anticoagulation with Eliquis on outpatient basis and I'm assuming this was given to him for chronic atrial fibrillation. He does have asymmetric lower extremity edema worse on the left. He has a Gordon catheter in place. He is also known to be alcoholic. He has stated that he really paralyzed on a daily basis. He was also stated that he goes into withdrawal was while not drinking for few days. Overnight, the patient was given IV Lasix. He is still on Lasix 40 mg IV every 8 hours. He is producing adequate amount of urine output. Urine output has been -1.4 L over the past 8 hours. Today's evaluation of 02/14/2023, the patient is still on a BiPAP at a pressure of 16/6 cm of water with FiO2 40%. The patient was kept on BiPAP throughout the night yesterday. This morning his generating adequate tidal volumes. He is comfortable on Precedex which is running at 0.4 mcg/kg/m. No agitation. No signs of any delirium tremens and needs communicating appropriately. The patient has diabetes adequate over the past 24 hours while being on IV Lasix. Fluid balance is -3.6 L over the past 24 hours. The patient's BUN is down to 84 with a creatinine of 2.3. The white cell count of 8.5 with a hemoglobin of 17.5. Ultrasound the lower extremities was done and it showed no evidence of any DVTs. Ultrasound the kidneys showed no evidence of any hydronephrosis. The echocardiogram was also done yesterday and the patient was found to have a preserved LV function with an ejection fraction of 55-60%. There was moderate degree of aortic stenosis with a mean gradient of 29. Mild tricuspid regurgitation. Moderate pulmonary hypertension with a pulmonary artery pressures estimated to be at 43. Gordon cath is in place. The patient's cardiac rhythm is atrial fibrillation. The patient remains on anticoagulation with Eliquis. The patient is also on metoprolol 12.5 mg by mouth twice a day and the rate is on the adequate control for now. He remains on bronchodilators. 02/15/2023, the patient is on oxygen at 2 L. The patient has diuresed more over the past 24 hours and the patient is in negative fluid balance of -5.9 L and ove rall fluid balance is -10 L since the patient came into the hospital or at least more than 10 L. His weight is down to 140 kg. He is currently on 2 L L O2 and is doing welland overnight the patient utilized the BiPAP without any major difficulties. His chest x-ray from today is showing improvement in the volume status. There is still increased interstitial edema and bilateral pleural effusions also seen in the lung bases. The patient is receiving Lasix at a dose of 60 mg IV every 8. His cardiac rhythm is a chest fibrillation. Rate is controlled and the patient remains on metoprolol 12.5 mg twice a day. Remains on anticoagulation with Eliquis. Remains on bronchodilators and steroids. The patient was taken off Precedex as the patient has no active signs of bleeding in terms of this point in time. He has history of alcoholism. His echo cardiac exam showed diastolic heart failure with right-sided enlargement as stated earlier. No other significant events overnight.labs from today shows a BUN of 83, creatinine continues to improve as down to 1.9. Sodium levels of 142. White cell count is at 9.3 with a hemoglobin of 17.6 and a platelet count of 101. The patient is seen today 02/16/2023 in follow-up on the regular medical floor. He is currently sitting up in a chair. Awake and alert in no acute distress. Maintaining O2 saturations in the 90s on 3 L/m per nasal cannula. He did utilize BiPAP / at 40% FiO2 last night. He continues to diurese on Lasix 60 mg IV every 12 hours. Currently in a -3.7 L balance. Blood sugar 97. He remains on DuoNeb inhalations, Pulmicort inhalations, Singulair. Anticoagulated with Eliquis. Objective - Vital Signs Vital signs: Vital Signs Temp 97.8 F 02/16/23 07:20 Pulse 90 02/16/23 12:27 Resp 18 02/16/23 07:20 BP 128/74 02/16/23 07:20 Pulse Ox 91 L 02/16/23 12:12 FiO2 40 02/16/23 03:10 Intake & Output 02/15/23 02/16/23 02/16/23 18:59 06:59 18:59 Intake Total 40 Output Total 2175 1600 1700 Balance -2134 -1600 -1700 Intake: IV 40 NS 40 Output: Urine 2175 1600 1700 Uretheral (Gordon) 1700 Other: Voiding Method Indwelling Catheter Indwelling Catheter Indwelling Catheter # Bowel Movements 1 ABP, PAP, CO, CI - Last Documented Arterial Blood Pressure 114/70 - Exam General: This is a pleasant 72-year-old male, up in a chair, on 3 L of oxygen by nasal cannula Head exam was generally normal. There was no scleral icterus or corneal arcus. Mucous membranes were moist. Neck is short and the patient has significant crowding of the posterior oroph arynx, poor dental condition, crowding of the posterior oropharynx with a Mallampati class IV Lungs diminished breath sounds bilaterally and the patient diffuse expiratory wheezes throughout the lung dumont Heart sounds are irregular, consistent with atrial fibrillation, no significant murmurs appreciated Abdomen is distended and soft. No direct tenderness. No rebound tenderness. No guarding. Lower extremities are showed +1 edema, asymmetric slightly worse on the left, no open wounds or sores. No cyanosis or clubbing. Examination of the skin revealed no evidence of significant rashes, suspicious appearing nevi or other concerning lesions. Neurologically the patient is awake and alert, moving all 4 extremities. Answering questions appropriately at this point in time. No facial asymmetry. - Labs CBC & Chem 7: 02/15/23 03:30 02/15/23 03:30 Labs: Abnormal Lab Results - Last 24 Hours (Table) 02/16/23 Range/Units 05:55 POC Glucose (mg/dL) 123 H (70-110) mg/dL Assessment and Plan Assessment: Acute on chronic hypoxic/hypercapnic respiratory failure due to COPD/CHF exacerbation. The patient is currently off BiPAP. Clinically improved. No signs of any CO2 narcosis. The patient was kept on BiPAP overnight and the patient was diuresed and his volume status is also improved. Chest x-ray is improving. Volume status is improving. Currently on 3 L O2 nasal cannula COPD, chronic, severity is not known. Suspect chronic hypoxemia related to COPD, currently on 3 L of oxygen by nasal cannula CHF with elevated proBNP level. Consider possibility of diastolic heart failure, consider possibility of a right-sided heart failure due to chronic COPD features of obstructive sleep apnea. The patient has preserved LV function, moderate degree of aortic stenosis and moderate pulmonary hypertension Moderate aortic stenosis Morbid obesity Chronic A. fib, rate is controlled for now, on anti-coagulation with Eliquis. Chronic kidney disease Acute hyperkalemia, treated Alcoholism, currently off Precedex Chronic lower extremity edema, asymmetric, Doppler of the lower extremity is negative and the patient has improvement in edema, improving Features of obstructive sleep apnea Hyperlipidemia Alcoholism Plan: The patient was seen and evaluated Labs and medications reviewed Continues to diurese well Continued IV diuretics Titrate down the FiO2 as tolerated Utilize BiPAP as needed Increase his activity as tolerated We will continue to follow I have personally seen and examined the patient, performed the documentation and the assessment and plan as written. Number of minutes spent on the visit: 10.
[2023-02-16 15:36] VITALS: PULSE 88
[2023-02-16 19:05] LABS: Vitamin D, 1, 25-Dihydroxy 41 pg/mL (20 - 79)
--- NOTE | 2023-02-17 06:24 | P.DS ---
Providers Date of admission: 02/12/23 17:42 Expected date of discharge: 02/16/23 Attending physician: Mendy Barriga MD Consults: 02/12/23 17:39 Consult Physician Routine Consulting Provider: Landon Lujan Consult Reason/Comments: CHF exacerbation Do you want consulting provider notified?: Yes 02/12/23 22:19 Consult Physician Routine Consulting Provider: Gayle Galarza Consult Reason/Comments: increased O2 demands Do you want consulting provider notified?: Yes, Notify in am 02/13/23 09:11 Consult Physician Routine Consulting Provider: Josr Watkins Consult Reason/Comments: CKD Do you want consulting provider notified?: Yes Primary care physician: Arron Castro MD Hospital Course: Final diagnosis -Acute on chronic hypoxic/hypercapnic respiratory failure; multifactorial secondary to COPD/CHF exacerbation requiring BiPAP -Acute exacerbation CHF; elevated BNP -Acute exacerbation COPD -Acute hyperkalemia; corrected -Chronic A. fib, rate is controlled -Alcohol abuse/pending withdrawal - Hypertension -Hyperlipidemia -DVT prophylaxis -GI prophylaxis -full code Discharge disposition Patient is being discharged in a stable condition with guarded prognosis to home. Patient will follow-up with JEANETH Hilliard in the outpatient setting upon discharge. Patient is to follow-up with cardiology as well as pulmonary and nephrology in the outpatient setting as scheduled. Total time taken is greater than 35 minutes. Hospital course This is a 72-year-old male who was recently admitted with COPD/CHF exacerbation requiring BiPAP and ICU monitoring. Multiple medical consultations following patient maintained on DuoNeb treatments along with IV steroids as well as IV Lasix. Patient with history of alcohol abuse was maintained on CIWA protocol with no active withdrawals noted. Patient does wear oxygen outpatient and has been cleared by consultations for discharge today. Patient is extremely anxious and wants to go home. Patient will continue prednisone taper and recommend outpatient follow-up with cardiology, nephrology, pulmonary in one week. Please refer to consultation notes for further HPI. Currently no reports of chest pain, shortness of breath, or palpitations. Patient is afebrile. No reports of nausea or vomiting and patient is tolerating diet. Patient will be discharged home today. Guarded prognosis and high risk for readmissions given patient's significant comorbidities and noncompliance with medications and continued alcohol abuse. Physical exam: Gen: This is a 72-year-old male who is awake, alert and oriented 3, well- developed, well-nourished, obese HEENT: Head is atraumatic, normocephalic. Pupils equal, round. Sclerae is anicteric. NECK: Supple. No JVD. No lymphadenopathy. No thyromegaly. LUNGS: Diminished breath sounds bilaterally with some scattered rhonchi. No intercostal retractions. HEART: S1, S2 are muffled ABDOMEN: Soft. Obese. Bowel sounds are present. No masses. No tenderness. EXTREMITIES: No pedal edema. No calf tenderness. Bilateral lower extremity edema noted NEUROLOGICAL: Patient is awake, alert and oriented x3. Cranial nerves 2 through 12 are grossly intact. Please refer to medication reconciliation sheet for a list of medications. The impression and plan of care has been dictated by Josefina Mckay, Nurse Practitioner as directed. Dr. Delbert MD I have performed a history and examination and MDM of this patient, discussed the same with the dictator, and agree with the dictator's assessment and plan as written ,documented as a scribe. Based on total visit time, I have performed more than 50% of the visit. Patient Condition at Discharge: Fair Plan - Discharge Summary Discharge Rx Participant: No New Discharge Prescriptions: New Torsemide [Demadex] 40 mg PO DAILY 30 Days #30 tablet Multivitamins, Thera [Multivitamin (formulary)] 1 each PO DAILY #30 tab Thiamine [Vitamin B-1] 100 mg PO Q24HR #30 tab Continue Montelukast [Singulair] 10 mg PO DAILY Metoprolol Tartrate 25 mg PO TID Apixaban [Eliquis] 5 mg PO BID Ipratropium-Albuterol Nebulize [Duoneb 0.5 mg-3 mg/3 ml Soln] 3 ml INHALATION RT-QID PRN PRN Reason: Shortness Of Breath Albuterol Inhaler [Ventolin Hfa Inhaler] 1 - 2 puff INHALATION RT-Q4H PRN PRN Reason: Shortness Of Breath Gabapentin [Neurontin] 100 mg PO BID@1300,2100 Atorvastatin [Lipitor] 80 mg PO DAILY Cyanocobalamin (Vitamin B-12) [Vitamin B-12] 1,000 mcg PO DAILY allopurinoL [Zyloprim] 100 mg PO DAILY Potassium Chloride ER [K-Dur 20] 20 meq PO DAILY Gabapentin [Neurontin] 200 mg PO DAILY@0800 Famotidine [Pepcid] 20 mg PO DAILY Budesonide [Pulmicort] 0.5 mg INHALATION RT-BID Discharge Medication List Albuterol Inhaler [Ventolin Hfa Inhaler] 1 - 2 puff INHALATION RT-Q4H PRN 08/18/18 [History] Apixaban [Eliquis] 5 mg PO BID 08/18/18 [History] Ipratropium-Albuterol Nebulize [Duoneb 0.5 mg-3 mg/3 ml Soln] 3 ml INHALATION RT-QID PRN 08/18/18 [History] Metoprolol Tartrate 25 mg PO TID 08/18/18 [History] Montelukast [Singulair] 10 mg PO DAILY 08/18/18 [History] Atorvastatin [Lipitor] 80 mg PO DAILY 02/12/23 [History] Budesonide [Pulmicort] 0.5 mg INHALATION RT-BID 02/12/23 [History] Cyanocobalamin (Vitamin B-12) [Vitamin B-12] 1,000 mcg PO DAILY 02/12/23 [History] Famotidine [Pepcid] 20 mg PO DAILY 02/12/23 [History] Gabapentin [Neurontin] 100 mg PO BID@1300,2100 02/12/23 [History] Gabapentin [Neurontin] 200 mg PO DAILY@0800 02/12/23 [History] Potassium Chloride ER [K-Dur 20] 20 meq PO DAILY 02/12/23 [History] allopurinoL [Zyloprim] 100 mg PO DAILY 02/12/23 [History] Multivitamins, Thera [Multivitamin (formulary)] 1 each PO DAILY #30 tab 02/16/23 [Rx] Thiamine [Vitamin B-1] 100 mg PO Q24HR #30 tab 02/16/23 [Rx] Torsemide [Demadex] 40 mg PO DAILY 30 Days #30 tablet 02/16/23 [Rx] Follow up Appointment(s)/Referral(s): Mili Hilliard FNPBC [Family Provider] - 02/20/23 2:30 pm Josr Watkins DO [STAFF PHYSICIAN] - 03/23/23 2:20 pm Ambulatory/Diagnostic Orders: Basic Metabolic Panel [LAB.AMB] Time Frame: 3 Days, Location: None Selected Patient Instructions/Handouts: Heart Failure (DC) Activity/Diet/Wound Care/Special Instructions: Activity Limited until follow-up Follow-up with primary care provider on discharge Follow cardiology outpatient Follow-up nephrology outpatient Continue taking medications as prescribed Continue fluid restrictions of 45 ounces per day including all fluid intake Repeat labs in the next few days to monitor BMP and magnesium Elevate lower extremity swelling rest Discharge Disposition: HOME SELF-CARE
== END 2023-02-16 16:10 | disposition home or self-care (01) | DRG 291 ==
LOC: EC 15:47 → 3SCARD 17:42 → 2SICU 23:52 → 4SSUR 02-15 15:59
PROVIDERS: ADMIT Internal Medicine; ATTEND Internal Medicine
PROC: 02HV33Z Insertion of Infusion Device into Superior Vena Cava, Percutaneous Approach (ICD-10-PCS; principal; 2023-02-12)
PROC: 03HY32Z Insertion of Monitoring Device into Upper Artery, Percutaneous Approach (ICD-10-PCS; 2023-02-12)
PROC: 4A133B1 Monitoring of Arterial Pressure, Peripheral, Percutaneous Approach (ICD-10-PCS; 2023-02-12)
PROC: 4A133J1 Monitoring of Arterial Pulse, Peripheral, Percutaneous Approach (ICD-10-PCS; 2023-02-12)
PROC: 5A09357 Assistance with Respiratory Ventilation, Less than 24 Consecutive Hours, Continuous Positive Airway Pressure (ICD-10-PCS; 2023-02-12)
DX: I13.0 Hypertensive heart and chronic kidney disease with heart failure and stage 1 through stage 4 chronic kidney disease, or unspecified chronic kidney disease (principal); I50.43 Acute on chronic combined systolic (congestive) and diastolic (congestive) heart failure; J96.21 Acute and chronic respiratory failure with hypoxia; J96.22 Acute and chronic respiratory failure with hypercapnia; N17.0 Acute kidney failure with tubular necrosis; J44.1 Chronic obstructive pulmonary disease with (acute) exacerbation; I48.21 Permanent atrial fibrillation; G93.40 Encephalopathy, unspecified; I27.20 Pulmonary hypertension, unspecified; I45.10 Unspecified right bundle-branch block; N18.32 Chronic kidney disease, stage 3b; T50.2X6A Underdosing of carbonic-anhydrase inhibitors, benzothiadiazides and other diuretics, initial encounter; I08.0 Rheumatic disorders of both mitral and aortic valves; G47.33 Obstructive sleep apnea (adult) (pediatric); F10.10 Alcohol abuse, uncomplicated; E87.5 Hyperkalemia; E83.52 Hypercalcemia; E78.5 Hyperlipidemia, unspecified; E66.01 Morbid (severe) obesity due to excess calories; E11.22 Type 2 diabetes mellitus with diabetic chronic kidney disease; Z79.01 Long term (current) use of anticoagulants; Z79.51 Long term (current) use of inhaled steroids; Z79.52 Long term (current) use of systemic steroids; Z79.899 Other long term (current) drug therapy; Z82.49 Family history of ischemic heart disease and other diseases of the circulatory system; Z91.148 Patient's other noncompliance with medication regimen for other reason; Z87.891 Personal history of nicotine dependence; Z68.38 Body mass index [BMI] 38.0-38.9, adult
CPT/HCPCS: 36415; 36600; 71045; 76770; 80048; 80053; 81001; 82164; 82306; 82652; 82805; 83605; 83735; 83880; 83970; 84132; 84484; 85025; 85027; 85610; 85730; 86334; 86335; 93005; 93306; 93970; 94640; 94660; 94760; 99285

== ENCOUNTER 2023-06-17 09:09 | Inpatient (IN) | payer MEDICARE ==
--- NOTE | 2023-06-17 09:44 | ED ---
General Adult HPI - General Chief complaint: Recheck/Abnormal Lab/Rx Stated complaint: Abnormal Labs Time Seen by Provider: 06/17/23 09:10 Source: patient Mode of arrival: ambulatory Limitations: no limitations - History of Present Illness Initial comments: Dictation was produced using [employer] dictation software. please excuse any grammatical, word or spelling errors. Chief Complaint: 73-year-old male presents emergency department for hypercalcemia History of Present Illness: 73-year-old male presents emergency department for hypercalcemia. He was at his primary care physician's office for annual physical exam. He does have a history of CK D. He had labs drawn outpatient. He was told shortly after his appointment that he should go to the emergency department for elevated calcium levels. He went to [facility] yesterday and was told that he needed to be transferred for further care. Patient refused and instead went home. He presents to us today for further care. Patient denies any symptoms. Patient's history of A. fib. The ROS documented in this emergency department record has been reviewed and confirmed by me. Those systems with pertinent positive or negative responses have been documented in the HPI. All other systems are other negative and/or noncontributory. - Related Data Home Medications Medication Instructions Recorded Confirmed Albuterol Inhaler [Ventolin Hfa 1 - 2 puff INHALATION RT-Q4H PRN 08/18/18 06/17/23 Inhaler] Apixaban [Eliquis] 5 mg PO BID 08/18/18 06/17/23 Ipratropium-Albuterol Nebulize 3 ml INHALATION RT-QID PRN 08/18/18 06/17/23 [Duoneb 0.5 mg-3 mg/3 ml Soln] Metoprolol Tartrate 25 mg PO TID 08/18/18 06/17/23 Montelukast [Singulair] 10 mg PO HS 08/18/18 06/17/23 Atorvastatin [Lipitor] 80 mg PO HS 02/12/23 06/17/23 Budesonide [Pulmicort] 0.5 mg INHALATION RT-BID 02/12/23 06/17/23 Cyanocobalamin (Vitamin B-12) 1,000 mcg PO HS 02/12/23 06/17/23 [Vitamin B-12] Famotidine [Pepcid] 20 mg PO DAILY 02/12/23 06/17/23 Gabapentin [Neurontin] 100 mg PO BID@1300,2100 02/12/23 06/17/23 Gabapentin [Neurontin] 200 mg PO DAILY@0800 02/12/23 06/17/23 allopurinoL [Zyloprim] 100 mg PO HS 02/12/23 06/17/23 Cholecalciferol [Vitamin D3 (25 25 mcg PO DAILY 06/17/23 06/17/23 Mcg = 1000 Iu)] Ketoconazole 2% Shampoo [Nizoral] 1 applic TOPICAL Q2D 06/17/23 06/17/23 Multivit-Mins/Iron/Folic/Lycop 1 tab PO DAILY 06/17/23 06/17/23 [Centrum Men's Tablet] Omalizumab [Xolair] 300 mg SQ Q28H 06/17/23 06/17/23 Thiamine [Vitamin B-1] 100 mg PO DAILY@1200 06/17/23 06/17/23 Vits A,C,E/Lutein/Minerals 1 tab PO DAILY 06/17/23 06/17/23 [Ocuvite with Lutein Tablet] Previous Rx's Medication Instructions Recorded Torsemide [Demadex] 40 mg PO DAILY 30 Days #30 tablet 02/16/23 Allergies Allergy/AdvReac Type Severity Reaction Status Date / Time No Known Allergies Allergy Verified 06/17/23 11:41 Review of Systems ROS Statement: Those systems with pertinent positive or pertinent negative responses have been documented in the HPI. ROS Other: All systems not noted in ROS Statement are negative. Past Medical History Past Medical History: Atrial Fibrillation, Heart Failure, COPD, GI Bleed, Hyperlipidemia, Hypertension, Renal Disease, Sleep Apnea/CPAP/BIPAP Additional Past Medical History / Comment(s): Hiatal hernia, cateracts, diverticulosis, CPAP use, Falls, History of Any Multi-Drug Resistant Organisms: None Reported Past Surgical History: Heart Catheterization Additional Past Surgical History / Comment(s): Bilateral cataract surgery, ganglion cyst removed, EGD/colonoscopy, cardioversion Past Anesthesia/Blood Transfusion Reactions: No Reported Reaction Past Psychological History: No Psychological Hx Reported Smoking Status: Former smoker Past Alcohol Use History: Daily Past Drug Use History: None Reported - Past Family History Mother Family Medical History: Cancer Father Family Medical History: Cancer, Myocardial Infarction ([place]) General Exam - General Exam Comments Initial Comments: PHYSICAL EXAM: General Impression: Alert and oriented x3, not in acute distress HEENT: Normocephalic atraumatic, extra-ocular movements intact, pupils equal and reactive to light bilaterally, mucous membranes moist. Cardiovascular: Heart regular rate and rhythm Chest: Able to complete full sentences, no retractions, no tachypnea Abdomen: abdomen soft, non-tender, non-distended, no organomegaly Musculoskeletal: Pulses present and equal in all extremities, no peripheral edema Motor: no focal deficits noted Neurological: CN II-XII grossly intact, no focal motor or sensory deficits noted Skin: Intact with no visualized rashes Psych: Normal affect and mood Limitations: no limitations Course Vital Signs 06/17/23 06/17/23 06/17/23 09:17 09:22 09:54 Temperature 97 F L Pulse Rate 80 75 Respiratory 16 16 20 Rate Blood Pressure 96/72 97/60 O2 Sat by Pulse 87 L 92 L Oximetry 06/17/23 10:22 Temperature Pulse Rate 75 Respiratory 18 Rate Blood Pressure 94/60 O2 Sat by Pulse 92 L Oximetry EKG Findings - EKG Comments: EKG Findings:: My EKG interpretation: Ventricular rate 75, sinus rhythm,. Interval tonight, QRS 99, QTC 421. No DE prolongation, no QTC prolongation, no ST or T-wave changes noted. Overall, this EKG is unremarkable Medical Decision Making - Medical Decision Making Was pt. sent in by a medical professional or institution (, PA, WATCH DIAL MAKER, urgent care, hospital, or retirement...) When possible be specific @ -No Did you speak to anyone other than the patient for history (EMS, parent, family, police, friend...)? What history was obtained from this source @ -No Did you review nursing and triage notes (agree or disagree)? Why? @ -I reviewed and agree with nursing and triage notes Were old charts reviewed (outside hosp., previous admission, EMS record, old EKG, old radiological studies, urgent care reports/EKG's, retirement records)? Report findings @ -No old charts were reviewed Differential Diagnosis (chest pain, altered mental status, abdominal pain women, abdominal pain men, vaginal bleeding, musculoskeletal, weakness, fever, dyspnea, syncope, headache, dizziness, GI bleed, back pain, seizure, CVA, palpatations, mental health)? @ -not applicable EKG interpreted by me (3pts min.). @ -See above X-rays interpreted by me (1pt min.). @ -No acute processes CT interpreted by me (1pt min.). @ -None done U/S interpreted by me (1pt. min.). @ -None done What testing was considered but not performed or refused? (CT, X-rays, U/S, labs)? Why? @ -None What meds were considered but not given or refused? Why? @ -None Did you discuss the management of the patient with other professionals (pro fessionals i.e. , PA, WATCH DIAL MAKER, lab, RT, psych nurse, social media sr strategy manager, lead material handler, teacher, armor officer, case management manager)? Give summary @ -Discussed with hospitalist for admission Was smoking cessation discussed for >3mins.? @ -No Was critical care preformed (if so, how long)? @ -No Were there social determinants of health that impacted care today? How? (Homelessness, low income, unemployed, alcoholism, drug addiction, transportation, low edu. Level, literacy, decrease access to med. care, alf, rehab)? @ -No Was there de-escalation of care discussed even if they declined (Discuss DNR or withdrawal of care, Hospice)? DNR status @ -No What co-morbidities impacted this encounter? (DM, HTN, Smoking, COPD, CAD, Ca ncer, CVA, ARF, Chemo, Hep., AIDS, mental health diagnosis, sleep apnea, morbid obesity)? @ -None Was patient admitted / discharged? Hospital course, mention meds given and route, prescriptions, significant lab abnormalities, going to OR and other pertinent info. @ -73-year-old male presents emergency Department with abnormal outpatient lab. His fontanelle hypercalcemia. Vital signs are stable. Patient has no symptoms at the bedside physical examination is benign. Laboratory evaluation obtained showing hypercalcemia of of 12.8 with ionized calcium of 6.8. Some clear was causing patient's hypercalcemia nonetheless he will be admitted for further care. Patient given IV fluids. Undiagnosed new problem with uncertain prognosis? @ -No Drug Therapy requiring intensive monitoring for toxicity (Heparin, Nitro, Insulin, Cardizem)? @ -No Were any procedures done? @ -No Diagnosis/symptom? Acute, or Chronic, or Acute on Chronic? Uncomplicated (without systemic symptoms) or Complicated (systemic symptoms)? @ -Hypercalcemia, no obvious source Side effects of treatment? @ -No Exacerbation, Progression, or Severe Exacerbation? @ -No Poses a threat to life or bodily function? How? (Chest pain, [place], [place], pneumonia, PE, COPD, DKA, ARF, appy, cholecystitis, CVA, Diverticulitis, Homicidal, Suicidal, threat to staff... and all critical care pts) @ -yes - Lab Data Result diagrams: 06/17/23 09:24 06/17/23 09:24 Lab Results 06/17/23 06/17/23 06/17/23 Range/Units 09:24 09:24 09:24 WBC 8.2 (3.8-10.6) k/uL RBC 4.06 L (4.30-5.90) m/uL Hgb 13.4 (13.0-17.5) gm/dL Hct 42.0 (39.0-53.0) % MCV 103.4 H (80.0-100.0) fL MCH 33.1 (25.0-35.0) pg MCHC 32.0 (31.0-37.0) g/dL RDW 14.2 (11.5-15.5) % Plt Count 146 L (150-450) k/uL MPV 9.7 Neutrophils % 66 % Lymphocytes % 15 % Monocytes % 12 % Eosinophils % 5 % Basophils % 1 % Neutrophils # 5.4 (1.3-7.7) k/uL Lymphocytes # 1.2 (1.0-4.8) k/uL Monocytes # 1.0 (0-1.0) k/uL Eosinophils # 0.4 (0-0.7) k/uL Basophils # 0.0 (0-0.2) k/uL Hypochromasia Slight Macrocytosis Slight PT 11.3 (10.0-12.5) sec INR 1.0 (<1.2) APTT 30.4 H (22.0-30.0) sec Sodium 136 L (137-145) mmol/L Potassium 4.6 (3.5-5.1) mmol/L Chloride 97 L (98-107) mmol/L Carbon Dioxide 28 (22-30) mmol/L Anion Gap 11 mmol/L BUN 71 H (9-20) mg/dL Creatinine 2.59 H (0.66-1.25) mg/dL Est GFR (CKD-EPI)AfAm 27 (>60 ml/min/1.73 sqM) Est GFR (CKD-EPI)NonAf 24 (>60 ml/min/1.73 sqM) Glucose 79 (74-99) mg/dL Plasma Lactic Acid Michael (0.7-2.0) mmol/L Calcium 12.8 H (8.4-10.2) mg/dL Ionized Calcium Karey 6.8 H* (4.5-5.3) mg/dL Total Bilirubin 1.2 (0.2-1.3) mg/dL AST 26 (17-59) U/L ALT 20 (4-49) U/L Alkaline Phosphatase 88 (38-126) U/L Total Protein 6.6 (6.3-8.2) g/dL Albumin 3.7 (3.5-5.0) g/dL 06/17/23 Range/Units 09:24 WBC (3.8-10.6) k/uL RBC (4.30-5.90) m/uL Hgb (13.0-17.5) gm/dL Hct (39.0-53.0) % MCV (80.0-100.0) fL MCH (25.0-35.0) pg MCHC (31.0-37.0) g/dL RDW (11.5-15.5) % Plt Count (150-450) k/uL MPV Neutrophils % % Lymphocytes % % Monocytes % % Eosinophils % % Basophils % % Neutrophils # (1.3-7.7) k/uL Lymphocytes # (1.0-4.8) k/uL Monocytes # (0-1.0) k/uL Eosinophils # (0-0.7) k/uL Basophils # (0-0.2) k/uL Hypochromasia Macrocytosis PT (10.0-12.5) sec INR (<1.2) APTT (22.0-30.0) sec Sodium (137-145) mmol/L Potassium (3.5-5.1) mmol/L Chloride (98-107) mmol/L Carbon Dioxide (22-30) mmol/L Anion Gap mmol/L BUN (9-20) mg/dL Creatinine (0.66-1.25) mg/dL Est GFR (CKD-EPI)AfAm (>60 ml/min/1.73 sqM) Est GFR (CKD-EPI)NonAf (>60 ml/min/1.73 sqM) Glucose (74-99) mg/dL Plasma Lactic Acid Michael 1.2 (0.7-2.0) mmol/L Calcium (8.4-10.2) mg/dL Ionized Calcium Karey (4.5-5.3) mg/dL Total Bilirubin (0.2-1.3) mg/dL AST (17-59) U/L ALT (4-49) U/L Alkaline Phosphatase (38-126) U/L Total Protein (6.3-8.2) g/dL Albumin (3.5-5.0) g/dL Disposition Clinical Impression: Hypercalcemia Disposition: ADMITTED IP TO THIS HOSP Condition: Fair Referrals: Arron Castro MD [Primary Care Provider] - 1-2 days Decision Time: 12:00
[2023-06-17 10:20] LABS: Basophils % (A) 1 %; Eosinophils # (A) 0.4 k/uL (0-0.7); Eosinophils % (A) 5 %; HGB 13.4 gm/dL (13.0-17.5); Hypochromasia Slight; Lymphocytes # (A) 1.2 k/uL (1.0-4.8); Lymphocytes % (A) 15 %; MCH 33.1 pg (25.0-35.0); MCV 103.4 fL (80.0-100.0); Macrocytosis Slight; Mean Platelet Volume 9.7; Monocytes % (A) 12 %; Neutrophils # (A) 5.4 k/uL (1.3-7.7); Neutrophils % (A) 66 %; Platelet Count 146 k/uL (150-450); RBC 4.06 m/uL (4.30-5.90); RDW 14.2 % (11.5-15.5); WBC 8.2 k/uL (3.8-10.6)
[2023-06-17 10:26] LABS: Partial Thromboplastin Time 30.4 sec (22.0-30.0); Prothrombin Time 11.3 sec (10.0-12.5)
[2023-06-17 10:33] LABS: Ionized Calcium 6.8 mg/dL (4.5-5.3)
[2023-06-17 10:41] LABS: ALT 20 U/L (4-49); AST 26 U/L (17-59); African American GFR (CKD) 27 (>60 ml/min/1.73 sqM); Albumin 3.7 g/dL (3.5-5.0); Alkaline Phosphatase 88 U/L (38-126); Anion Gap 11 mmol/L; Blood Urea Nitrogen 71 mg/dL (9-20); Calcium 12.8 mg/dL (8.4-10.2); Carbon Dioxide 28 mmol/L (22-30); Chloride 97 mmol/L (98-107); Glucose 79 mg/dL (74-99); Non-African American GFR(CKD) 24 (>60 ml/min/1.73 sqM); Potassium 4.6 mmol/L (3.5-5.1); Sodium 136 mmol/L (137-145); Total Bilirubin 1.2 mg/dL (0.2-1.3); Total Protein 6.6 g/dL (6.3-8.2)
[2023-06-17] MEDS ORDERED: SODIUM CHLORIDE 0.9% 1,000 ML IV STA ×2 (11:10)
[2023-06-17] MEDS ORDERED: NALOXONE 0.4 MG/ML 1 ML VIAL IV PRN (12:40)
--- NOTE | 2023-06-17 12:41 | XR ---
EXAMINATION TYPE: XR chest 2V DATE OF EXAM: 06/17/2023 COMPARISON: Prior chest x-ray February 15.3 HISTORY: Hypoxia TECHNIQUE: Frontal and lateral views of the chest are obtained. FINDINGS: There is no suspicious new focal air space opacity, pleural effusion, or pneumothorax seen . Cardiomegaly redemonstrated. The osseous structures are intact. IMPRESSION: Cardiomegaly without acute pulmonary process.
[2023-06-17] MEDS ORDERED: NON FORMULARY DRUG (Albuterol Inhaler 90 MCG Puff) INHALATION PRN (16:11)
[2023-06-17] MEDS ORDERED: LORazepam 1 MG TAB PO PRN ×3 (16:14)
--- NOTE | 2023-06-17 16:17 | P.HPIM ---
History of Present Illness H&P Date: 06/17/23 Patient is a 73-year-old male with history of chronic kidney disease, COPD, diastolic CHF, moderate pulmonary hypertension, chronic atrial fibrillation, alcohol dependence, hypertension, dyslipidemia presenting with hypercalcemia. She claims that he went to visit his family doctor for regular annual physical. He had his regular labs drawn, and then was told to come to the hospital because his found to have hypercalcemia. He was confirmed at an outside facility however he did not want to drive down to [place] on yesterday. He presented today. His only symptom from hypercalcemia is constipation which she has been expressing for 2 weeks. He denies any chest pain, worsening shortness of breath, abdominal pain, nausea, vomiting, or urinary symptoms. He drinks about 6 shots of vodka per day, denies any illicit drug use or smoking. In the ED, temperature was 97, pulse 80, respiratory rate 16, the pressure 96/72, saturating at 87% on room air. WBC 8.2, hemoglobin 13.4, platelet 146, APTT 30.4, sodium 136, bicarb 28, BUN 71, creatinine 2.59, slightly above from his baseline, calcium 12.8, Calcium 6.8, total protein 6.6. EKG independently interpreted, shows atrial fibrillation, rate controlled. Chest x-ray independently interpreted, shows no acute process. Patient admitted for hypercalcemia and acute hypoxic respiratory failure. Pertinent positives and negatives as discussed in HPI, a complete review of systems was performed and all other systems are negative. Patient seen and examined at bedside. Vital signs reviewed General: nontoxic, no distress, appears at stated age Derm: warm, dry Head: atraumatic, normocephalic, symmetric Eyes: EOMI, no lid lag, anicteric sclera, pupils equal round reactive to light ENT: Nose and ears atraumatic Neck: No thyromegaly, supple Mouth: no lip lesion, mucus membranes moist Cardiovascular: S1S2 reg, no murmur, trace peripheral edema Lungs: clear to auscultation bilateral, no rhonchi, no rales, no wheeze, no accessory muscle use, supplemental oxygen Abdominal: soft, nontender to palpation, no guarding, no appreciable organomegaly Ext: no gross muscle atrophy, muscle strength muscle strength 5 out of 5 in all 4 extremities, no contractures Neuro: CN II-XII grossly intact Psych: Alert, oriented, appropriate affect Assessment/Plan: Active: Hypercalcemia Constipation Acute on chronic kidney disease -Intact PTH ordered -UA ordered -nephrology consulted - on NS IV 120 cc/hr -hold diuretics -miralax daily Alcohol dependence -Monitor for alcohol withdrawal -IV Ativan per CIWA score, monitor for respiratory depression -Thymine 100 mg daily -Continue telemetry Chronic: Moderate pulmonary hypertension COPD, not in exacerbation Chronic atrial fibrillation Alcohol dependence Hypertension Dyslipidemia CHF diastolic, not in exacerbation Chronic hypoxic respiratory failure The patient is admitted with an anticipated greater than 2 midnight stay as inpatient status for evaluation of hypercalcemia. Surrogate decision-maker: CODE STATUS: Full code DVT prophylaxis: Eliquis Anticipated discharge date: Pending clinical course Anticipated discharge place: Pending clinical course A total of 55 minutes was spent on the care of this complex patient more than 50% of the time was spent in counseling and care coordination. Past Medical History Past Medical History: Atrial Fibrillation, Heart Failure, COPD, GI Bleed, Hyperlipidemia, Hypertension, Renal Disease, Sleep Apnea/CPAP/BIPAP Additional Past Medical History / Comment(s): Hiatal hernia, cateracts, diverticulosis, CPAP use, Falls, History of Any Multi-Drug Resistant Organisms: None Reported Past Surgical History: Heart Catheterization Additional Past Surgical History / Comment(s): Bilateral cataract surgery, ganglion cyst removed, EGD/colonoscopy, cardioversion Past Anesthesia/Blood Transfusion Reactions: No Reported Reaction Past Psychological History: No Psychological Hx Reported Smoking Status: Former smoker Past Alcohol Use History: Daily Past Drug Use History: None Reported - Past Family History Mother Family Medical History: Cancer Father Family Medical History: Cancer, Myocardial Infarction ([place]) Medications and Allergies Home Medications Medication Instructions Recorded Confirmed Type Albuterol Inhaler [Ventolin Hfa 1 - 2 puff INHALATION RT-Q4H PRN 08/18/18 06/17/23 History Inhaler] Apixaban [Eliquis] 5 mg PO BID 08/18/18 06/17/23 History Ipratropium-Albuterol Nebulize 3 ml INHALATION RT-QID PRN 08/18/18 06/17/23 History [Duoneb 0.5 mg-3 mg/3 ml Soln] Metoprolol Tartrate 25 mg PO TID 08/18/18 06/17/23 History Montelukast [Singulair] 10 mg PO HS 08/18/18 06/17/23 History Atorvastatin [Lipitor] 80 mg PO HS 02/12/23 06/17/23 History Budesonide [Pulmicort] 0.5 mg INHALATION RT-BID 02/12/23 06/17/23 History Cyanocobalamin (Vitamin B-12) 1,000 mcg PO HS 02/12/23 06/17/23 History [Vitamin B-12] Famotidine [Pepcid] 20 mg PO DAILY 02/12/23 06/17/23 History Gabapentin [Neurontin] 100 mg PO BID@1300,2100 02/12/23 06/17/23 History Gabapentin [Neurontin] 200 mg PO DAILY@0800 02/12/23 06/17/23 History allopurinoL [Zyloprim] 100 mg PO HS 02/12/23 06/17/23 History Torsemide [Demadex] 40 mg PO DAILY 30 Days #30 tablet 02/16/23 06/17/23 Rx Cholecalciferol [Vitamin D3 (25 25 mcg PO DAILY 06/17/23 06/17/23 History Mcg = 1000 Iu)] Ketoconazole 2% Shampoo [Nizoral] 1 applic TOPICAL Q2D 06/17/23 06/17/23 History Multivit-Mins/Iron/Folic/Lycop 1 tab PO DAILY 06/17/23 06/17/23 History [Centrum Men's Tablet] Omalizumab [Xolair] 300 mg SQ Q28H 06/17/23 06/17/23 History Thiamine [Vitamin B-1] 100 mg PO DAILY@1200 06/17/23 06/17/23 History Vits A,C,E/Lutein/Minerals 1 tab PO DAILY 06/17/23 06/17/23 History [Ocuvite with Lutein Tablet] Allergies Allergy/AdvReac Type Severity Reaction Status Date / Time No Known Allergies Allergy Verified 06/17/23 11:41 Physical Exam Vitals: Vital Signs Temp Pulse Resp BP Pulse Ox 06/17/23 15:27 64 18 111/67 96 06/17/23 10:22 75 18 94/60 92 L 06/17/23 09:54 20 06/17/23 09:22 75 16 97/60 92 L 06/17/23 09:17 97 F L 80 16 96/72 87 L Intake and Output 06/17/23 06/17/23 06/17/23 06:59 14:59 22:59 Other: Weight 123.377 kg Results CBC & Chem 7: 06/17/23 09:24 06/17/23 09:24 Labs: Abnormal Lab Results - Last 24 Hours (Table) 06/17/23 06/17/23 06/17/23 Range/Units 09:24 09:24 09:24 RBC 4.06 L (4.30-5.90) m/uL MCV 103.4 H (80.0-100.0) fL Plt Count 146 L (150-450) k/uL APTT 30.4 H (22.0-30.0) sec Sodium 136 L (137-145) mmol/L Chloride 97 L (98-107) mmol/L BUN 71 H (9-20) mg/dL Creatinine 2.59 H (0.66-1.25) mg/dL Calcium 12.8 H (8.4-10.2) mg/dL Ionized Calcium Karey 6.8 H* (4.5-5.3) mg/dL
[2023-06-17 19:03] LABS: Appearance,Urine Clear (Clear); Color,Urine Yellow; Protein,Urine Trace (Negative); Specific Gravity,Urine 1.015 (1.001-1.035)
[2023-06-17 19:04] LABS: Bilirubin,Urine Negative (Negative); Blood,Urine Negative (Negative); Glucose,Urine (UA) Negative (Negative); Ketones,Urine Negative (Negative); Leukocyte Esterase,Urine Negative (Negative); Nitrite,Urine Negative (Negative); Urobilinogen,Urine <2.0 mg/dL (<2.0)
[2023-06-17] MEDS: BUDESONIDE 0.5 MG/2 ML NEBU INHALATION SCH (20:06)
[2023-06-17] MEDS: METOPROLOL TARTRATE 25 MG TAB PO SCH (20:57)
[2023-06-17] MEDS: CYANOCOBALAMIN 500 MCG TAB PO SCH (20:57)
[2023-06-17] MEDS: APIXABAN 5 MG TAB PO SCH (20:57)
[2023-06-17] MEDS: MONTELUKAST 10 MG TAB PO SCH (20:57)
[2023-06-17] MEDS: GABAPENTIN 100 MG CAP PO SCH (20:57)
[2023-06-17] MEDS: allopurinoL 100 MG TAB PO SCH (20:57)
[2023-06-17] MEDS: ATORVASTATIN 80 MG TAB PO SCH (20:57)
[2023-06-18 07:58] LABS: African American GFR (CKD) 32 (>60 ml/min/1.73 sqM); Anion Gap 10 mmol/L; Blood Urea Nitrogen 67 mg/dL (9-20); Calcium 12.9 mg/dL (8.4-10.2); Carbon Dioxide 31 mmol/L (22-30); Chloride 99 mmol/L (98-107); Glucose 91 mg/dL (74-99); Non-African American GFR(CKD) 27 (>60 ml/min/1.73 sqM); Potassium 4.6 mmol/L (3.5-5.1); Sodium 140 mmol/L (137-145)
[2023-06-18] MEDS: BUDESONIDE 0.5 MG/2 ML NEBU INHALATION SCH ×2 (08:02→18:14)
[2023-06-18] MEDS: IPRATROPIUM-ALBUTEROL 3 ML NEB INHALATION PRN (08:02)
[2023-06-18 08:04] LABS: Basophils # (A) 0.1 k/uL (0-0.2); Basophils % (A) 1 %; Eosinophils # (A) 0.4 k/uL (0-0.7); Eosinophils % (A) 4 %; HCT 43.4 % (39.0-53.0); HGB 13.9 gm/dL (13.0-17.5); Hypochromasia Moderate; Lymphocytes # (A) 0.9 k/uL (1.0-4.8); Lymphocytes % (A) 11 %; MCH 33.6 pg (25.0-35.0); MCV 104.9 fL (80.0-100.0); Macrocytosis Moderate; Monocytes # (A) 0.9 k/uL (0-1.0); Monocytes % (A) 11 %; Neutrophils # (A) 5.6 k/uL (1.3-7.7); Neutrophils % (A) 70 %; Platelet Count 143 k/uL (150-450); RBC 4.13 m/uL (4.30-5.90); RDW 13.9 % (11.5-15.5); WBC 8.1 k/uL (3.8-10.6)
[2023-06-18] MEDS: GABAPENTIN 100 MG CAP PO SCH ×3 (09:12→20:58)
[2023-06-18] MEDS: METOPROLOL TARTRATE 25 MG TAB PO SCH ×3 (09:13→20:58)
[2023-06-18] MEDS: FAMOTIDINE 20 MG TAB PO SCH (09:13)
[2023-06-18] MEDS: THIAMINE 100 MG TAB PO SCH (09:13)
[2023-06-18] MEDS: APIXABAN 5 MG TAB PO SCH ×2 (09:13→20:58)
[2023-06-18] MEDS: polyethylene glycoL 3350 17 GM POWD.PACK PO SCH (09:13)
--- NOTE | 2023-06-18 12:56 | P.NPCON ---
History of Present Illness - Reason for Consult acute renal failure - History of Present Illness Patient is a 73-year-old male with history of chronic kidney disease NKF stage IV with previous creatinine at 1.9 mg/dL on 02/15/2023. Patient is admitted to the hospital due to abnormal labs. He was noted to have worsening renal function with creatinine at 2.59 yesterday and serum calcium of 12.8 mg/dL. No history of use of Tums or calcium supplements. No history of nausea vomiting or abdominal pain. Does admit to constipation Status post IV fluids. Creatinine decreased to 2.28 today. Review of Systems As per HPI Past Medical History Past Medical History: Atrial Fibrillation, Heart Failure, COPD, GI Bleed, Hyperlipidemia, Hypertension, Renal Disease, Sleep Apnea/CPAP/BIPAP Additional Past Medical History / Comment(s): Hiatal hernia, cateracts, diverticulosis, CPAP use, Falls, History of Any Multi-Drug Resistant Organisms: None Reported Past Surgical History: Heart Catheterization Additional Past Surgical History / Comment(s): Bilateral cataract surgery, ganglion cyst removed, EGD/colonoscopy, cardioversion Past Anesthesia/Blood Transfusion Reactions: No Reported Reaction Past Psychological History: No Psychological Hx Reported Smoking Status: Former smoker Past Alcohol Use History: Daily Additional Past Alcohol Use History / Comment(s): Quit just over 1 yr ago, smoked 40 yrs, 1PPD or more. Past Drug Use History: None Reported - Past Family History Mother Family Medical History: Cancer Father Family Medical History: Cancer, Myocardial Infarction ([place]) Medications and Allergies Home Medications Medication Instructions Recorded Confirmed Type Albuterol Inhaler [Ventolin Hfa 1 - 2 puff INHALATION RT-Q4H PRN 08/18/18 06/17/23 History Inhaler] Apixaban [Eliquis] 5 mg PO BID 08/18/18 06/17/23 History Ipratropium-Albuterol Nebulize 3 ml INHALATION RT-QID PRN 08/18/18 06/17/23 History [Duoneb 0.5 mg-3 mg/3 ml Soln] Metoprolol Tartrate 25 mg PO TID 08/18/18 06/17/23 History Montelukast [Singulair] 10 mg PO HS 08/18/18 06/17/23 History Atorvastatin [Lipitor] 80 mg PO HS 02/12/23 06/17/23 History Budesonide [Pulmicort] 0.5 mg INHALATION RT-BID 02/12/23 06/17/23 History Cyanocobalamin (Vitamin B-12) 1,000 mcg PO HS 02/12/23 06/17/23 History [Vitamin B-12] Famotidine [Pepcid] 20 mg PO DAILY 02/12/23 06/17/23 History Gabapentin [Neurontin] 100 mg PO BID@1300,2100 02/12/23 06/17/23 History Gabapentin [Neurontin] 200 mg PO DAILY@0800 02/12/23 06/17/23 History allopurinoL [Zyloprim] 100 mg PO HS 02/12/23 06/17/23 History Torsemide [Demadex] 40 mg PO DAILY 30 Days #30 tablet 02/16/23 06/17/23 Rx Cholecalciferol [Vitamin D3 (25 25 mcg PO DAILY 06/17/23 06/17/23 History Mcg = 1000 Iu)] Ketoconazole 2% Shampoo [Nizoral] 1 applic TOPICAL Q2D 06/17/23 06/17/23 History Multivit-Mins/Iron/Folic/Lycop 1 tab PO DAILY 06/17/23 06/17/23 History [Centrum Men's Tablet] Omalizumab [Xolair] 300 mg SQ Q28H 06/17/23 06/17/23 History Thiamine [Vitamin B-1] 100 mg PO DAILY@1200 06/17/23 06/17/23 History Vits A,C,E/Lutein/Minerals 1 tab PO DAILY 06/17/23 06/17/23 History [Ocuvite with Lutein Tablet] Allergies Allergy/AdvReac Type Severity Reaction Status Date / Time No Known Allergies Allergy Verified 06/17/23 11:41 Physical Exam Vitals: Vital Signs Temp Pulse Pulse Resp BP BP BP 06/18/23 12:41 98.1 F 88 19 90/57 06/18/23 08:18 80 06/18/23 08:02 76 06/18/23 07:54 97.6 F 81 19 103/58 06/18/23 06:20 06/18/23 02:00 98 F 73 16 94/67 06/17/23 21:34 86 101/75 06/17/23 20:07 06/17/23 20:06 98 F 81 20 100/70 06/17/23 16:44 98.8 F 77 18 111/61 06/17/23 15:27 64 18 111/67 Pulse Ox 06/18/23 12:41 92 L 06/18/23 08:18 06/18/23 08:02 06/18/23 07:54 95 06/18/23 06:20 91 L 06/18/23 02:00 92 L 06/17/23 21:34 06/17/23 20:07 96 06/17/23 20:06 96 06/17/23 16:44 96 06/17/23 15:27 96 Intake and Output 06/17/23 06/18/23 06/18/23 22:59 06:59 14:59 Intake Total 240 Output Total 400 Balance -400 240 Intake: Oral 240 Output: Urine 400 Other: Voiding Method Toilet Toilet Urinal Urinal # Voids 3 Weight 123.377 kg 123.9 kg Patient is awake, comfortable, no acute distress. Examination of the heart S1 and S2 Examination of the lungs bilateral breath sounds are heard with decreased breath sounds at the bases Abdomen is soft obese Examination of the lower extremities shows edema 1+ bilaterally FUR TRAPPER exam grossly intact Results - Lab Results Most recent lab results Calcium 12.9 mg/dL (8.4-10.2) H 06/18/23 07:05 06/18/23 07:05 06/18/23 07:05 Assessment and Plan Assessment: 1. Acute kidney injury secondary to hypercalcemia, slightly improved 2. Chronic kidney disease NKF stage IV secondary to nephrosclerosis. UA is benign with trace protein. 3. Hypercalcemia with no history of use of calcium supplements or vitamin D supplementation. We will obtain workup including PTH levels, serum and urine immunofixation and vitamin D levels. 4. History of COPD 5. Moderate pulmonary hypertension Plan: Maintain IV hydration Pamidronate 1 Obtain serum and urine immunofixation along with 25-hydroxy vitamin D and 1, 25- hydroxy vitamin D levels. Repeat labs in a.m. Avoid nephrotoxic agents Thank you for the consultation. We will continue to follow the patient with you during his hospitalization.
--- NOTE | 2023-06-18 13:25 | P.PN ---
Subjective Progress Note Date: 06/18/23 Hospital Course: 73-year-old male with history of chronic kidney disease, COPD, diastolic CHF, moderate pulmonary hypertension, chronic atrial fibrillation, alcohol dependence, hypertension, dyslipidemia presenting with hypercalcemia. In the ED, temperature was 97, pulse 80, respiratory rate 16, the pressure 96/72, saturating at 87% on room air. WBC 8.2, hemoglobin 13.4, platelet 146, APTT 30.4, sodium 136, bicarb 28, BUN 71, creatinine 2.59, slightly above from his baseline, calcium 12.8, Calcium 6.8, total protein 6.6. EKG independently interpreted, shows atrial fibrillation, rate controlled. Chest x-ray independently interpreted, shows no acute process. Patient admitted for hypercalcemia. Nephrology consulted. Subjective: Patient seen and examined at bedside. No acute events overnight. Having bowel movements. Pertinent positives and negatives as discussed above, a complete review of systems was performed and all other systems are negative. Vitals Signs Reviewed. General: nontoxic, no distress, appears at stated age Derm: warm, dry Head: atraumatic, normocephalic, symmetric Eyes: EOMI, no lid lag, anicteric sclera, pupils equal round reactive to light ENT: Nose and ears atraumatic Neck: No thyromegaly, supple Mouth: no lip lesion, mucus membranes moist Cardiovascular: S1S2 reg, no murmur, trace peripheral edema Lungs: clear to auscultation bilateral, no rhonchi, no rales, no wheeze, no accessory muscle use, supplemental oxygen Abdominal: soft, nontender to palpation, no guarding, no appreciable organomegaly Ext: no gross muscle atrophy, muscle strength muscle strength 5 out of 5 in all 4 extremities, no contractures Neuro: CN II-XII grossly intact Psych: Alert, oriented, appropriate affect Data Reviewed Today: Pertinent Labs: WBC 8.1, hemoglobin 13.9, platelet 143, creatinine 2.28, sodium 140, potassium 4.6, calcium 12.9, PTH intact 52.6 Imaging: No new imaging Assessment and Plan: Active: Hypercalcemia Constipation Acute on chronic kidney disease, resolving -Inappropriately normal PTH, possibly primary hyperparathyroidism -Has trace protein based on urinalysis -nephrology note reviewed, status post 30 mg of pamidronate -hold diuretics -miralax daily Alcohol dependence -Monitor for alcohol withdrawal -IV Ativan per TERI score, monitor for respiratory depression -Thymine 100 mg daily -Continue telemetry Chronic: Moderate pulmonary hypertension COPD, not in exacerbation Chronic atrial fibrillation Alcohol dependence Hypertension Dyslipidemia CHF diastolic, not in exacerbation Chronic hypoxic respiratory failure DVT ppx: Eliquis Code status: Full code Anticipated discharge place: Pending clinical course Anticipated discharge time: Pending clinical course Objective - Vital Signs Vital signs: Vital Signs Temp 98.1 F 06/18/23 12:41 Pulse 88 06/18/23 12:41 Resp 19 06/18/23 12:41 BP 90/57 06/18/23 12:41 Pulse Ox 92 L 06/18/23 12:41 FiO2 Intake & Output 06/17/23 06/18/23 06/18/23 18:59 06:59 18:59 Intake Total 240 Output Total 400 Balance -400 240 Weight 123.377 kg 123.9 kg Intake: Oral 240 Output: Urine 400 Other: Voiding Method Toilet Toilet Urinal Urinal # Voids 3 - Labs CBC & Chem 7: 06/18/23 07:05 06/18/23 07:05 Labs: Abnormal Lab Results - Last 24 Hours (Table) 06/17/23 06/18/23 06/18/23 Range/Units 16:28 07:05 07:05 RBC 4.13 L (4.30-5.90) m/uL MCV 104.9 H (80.0-100.0) fL Plt Count 143 L (150-450) k/uL Lymphocytes # 0.9 L (1.0-4.8) k/uL Carbon Dioxide 31 H (22-30) mmol/L BUN 67 H (9-20) mg/dL Creatinine 2.28 H (0.66-1.25) mg/dL Calcium 12.9 H (8.4-10.2) mg/dL Urine Protein Trace H (Negative)
[2023-06-18] MEDS ORDERED: SODIUM CHLORIDE 0.9% 250 ML with PAMIDRONATE 30 MG IV ONE ×2 (13:30)
[2023-06-18] MEDS: CYANOCOBALAMIN 500 MCG TAB PO SCH (20:58)
[2023-06-18] MEDS: ATORVASTATIN 80 MG TAB PO SCH (20:58)
[2023-06-18] MEDS: MONTELUKAST 10 MG TAB PO SCH (20:58)
[2023-06-18] MEDS: allopurinoL 100 MG TAB PO SCH (20:58)
[2023-06-19 02:17] LABS: Immunoglobulin M 76.5 mg/dL (40.0-280.0)
[2023-06-19] MEDS: BUDESONIDE 0.5 MG/2 ML NEBU INHALATION SCH (08:01)
[2023-06-19] MEDS: IPRATROPIUM-ALBUTEROL 3 ML NEB INHALATION PRN (08:01)
[2023-06-19] MEDS: GABAPENTIN 100 MG CAP PO SCH ×2 (08:31→12:16)
[2023-06-19] MEDS: FAMOTIDINE 20 MG TAB PO SCH (08:31)
[2023-06-19] MEDS: METOPROLOL TARTRATE 25 MG TAB PO SCH ×2 (08:31→15:29)
[2023-06-19] MEDS: APIXABAN 5 MG TAB PO SCH (08:31)
[2023-06-19] MEDS: polyethylene glycoL 3350 17 GM POWD.PACK PO SCH ×2 (08:31→08:33)
[2023-06-19] MEDS: THIAMINE 100 MG TAB PO SCH (12:16)
--- NOTE | 2023-06-19 12:58 | P.PN ---
Subjective Patient is seen for follow-up for acute kidney injury and hypercalcemia. Renal function improved slightly. Labs are pending from today. Calcium was 12.9 yesterday. The PTH was 52.6 which is high for a calcium of 12.9. Patient was not maintained on calcitriol as outpatient. There is high likelihood for underlying primary hyperparathyroidism. Patient will be started on Sensipar. He should have a nuclear scan of the parathyroid gland. Hopefully this can be done prior to discharge. No significant complaints today. 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 Acute kidney injury secondary to hypercalcemia, slightly improved 2. Chronic kidney disease NKF stage IV secondary to nephrosclerosis. UA is benign with trace protein. 3. Hypercalcemia with no history of use of calcium supplements or vitamin D supplementation. PTH is elevated suggesting underlying primary/tertiary hyperparathyroidism. Patient will be started on Sensipar. He should have a nuclear scan of the parathyroid gland performed. 4. History of COPD 5. Moderate pulmonary hypertension Plan: Start Sensipar 30 mg daily Check parathyroid nuclear scan Patient can be discharged if labs have improved. He scheduled to see us in the office next week
[2023-06-19 13:15] LABS: African American GFR (CKD) 36 (>60 ml/min/1.73 sqM); Anion Gap 8 mmol/L; Blood Urea Nitrogen 64 mg/dL (9-20); Calcium 12.9 mg/dL (8.4-10.2); Carbon Dioxide 28 mmol/L (22-30); Chloride 102 mmol/L (98-107); Glucose 125 mg/dL (74-99); Non-African American GFR(CKD) 31 (>60 ml/min/1.73 sqM); Potassium 4.5 mmol/L (3.5-5.1); Sodium 138 mmol/L (137-145)
[2023-06-19] MEDS ORDERED: CINACALCET 30 MG TAB PO SCH (14:30)
[2023-06-19 14:40] VITALS: BP 94/64; PULSE 68; RESP 19; TEMP 97.6
--- NOTE | 2023-06-19 15:41 | P.DS ---
Providers Date of admission: 06/17/23 12:41 Expected date of discharge: 06/19/23 Attending physician: Elliott Alanis MD Consults: 06/17/23 11:10 Consult Physician Routine Consulting Provider: Nilsa Dominguez Consult Reason/Comments: ckd Do you want consulting provider notified?: Yes Primary care physician: Arron Castro MD Hospital Course: Discharge Diagnosis: Hypercalcemia Constipation Acute on chronic kidney disease Alcohol dependence Moderate pulmonary hypertension COPD, not in exacerbation Chronic atrial fibrillation Alcohol dependence Hypertension Dyslipidemia CHF diastolic, not in exacerbation Chronic hypoxic respiratory failure Hospital Course: 73-year-old male with history of chronic kidney disease, COPD, diastolic CHF, moderate pulmonary hypertension, chronic atrial fibrillation, alcohol dependence, hypertension, dyslipidemia presenting with hypercalcemia. In the ED, temperature was 97, pulse 80, respiratory rate 16, the pressure 96/72, sat urating at 87% on room air. WBC 8.2, hemoglobin 13.4, platelet 146, APTT 30.4, sodium 136, bicarb 28, BUN 71, creatinine 2.59, slightly above from his baseline, calcium 12.8, Calcium 6.8, total protein 6.6. EKG independently interpreted, shows atrial fibrillation, rate controlled. Chest x-ray independently interpreted, shows no acute process. Patient admitted for hypercalcemia. Nephrology consulted. Intact PTH within normal limits, likely hyperparathyroidism. Patient being discharged on Sensipar. Diuretics continued. He will need outpatient parathyroid scan. Patient seen and examined at bedside. Vital signs reviewed and stable. General: nontoxic, no distress, appears at stated age Derm: warm, dry Head: atraumatic, normocephalic, symmetric Eyes: EOMI, no lid lag, anicteric sclera, pupils equal round reactive to light ENT: Nose and ears atraumatic Neck: No thyromegaly, supple Mouth: no lip lesion, mucus membranes moist Cardiovascular: S1S2 reg, no murmur, trace peripheral edema Lungs: clear to auscultation bilateral, no rhonchi, no rales, no wheeze, no accessory muscle use, supplemental oxygen Abdominal: soft, nontender to palpation, no guarding, no appreciable organom egaly Ext: no gross muscle atrophy, muscle strength muscle strength 5 out of 5 in all 4 extremities, no contractures Neuro: CN II-XII grossly intact Psych: Alert, oriented, appropriate affect A total of 33 minutes of time were spent preparing this complex discharge summary. Patient was discharged on 06/19/23 at 1538. Patient Condition at Discharge: Stable Plan - Discharge Summary Discharge Rx Participant: No New Discharge Prescriptions: New Cinacalcet [Sensipar] 30 mg PO DAILY #60 tab Continue Montelukast [Singulair] 10 mg PO HS Metoprolol Tartrate 25 mg PO TID Apixaban [Eliquis] 5 mg PO BID Ipratropium-Albuterol Nebulize [Duoneb 0.5 mg-3 mg/3 ml Soln] 3 ml INHALATION RT-QID PRN PRN Reason: Shortness Of Breath Albuterol Inhaler [Ventolin Hfa Inhaler] 1 - 2 puff INHALATION RT-Q4H PRN PRN Reason: Shortness Of Breath Gabapentin [Neurontin] 100 mg PO BID@1300,2100 Atorvastatin [Lipitor] 80 mg PO HS Cyanocobalamin (Vitamin B-12) [Vitamin B-12] 1,000 mcg PO HS Torsemide [Demadex] 40 mg PO DAILY 30 Days #30 tablet Thiamine [Vitamin B-1] 100 mg PO DAILY@1200 Ketoconazole 2% Shampoo [Nizoral] 1 applic TOPICAL Q2D allopurinoL [Zyloprim] 100 mg PO HS Gabapentin [Neurontin] 200 mg PO DAILY@0800 Famotidine [Pepcid] 20 mg PO DAILY Budesonide [Pulmicort] 0.5 mg INHALATION RT-BID Omalizumab [Xolair] 300 mg SQ Q28H Discontinued Multivit-Mins/Iron/Folic/Lycop [Centrum Men's Tablet] 1 tab PO DAILY Cholecalciferol [Vitamin D3 (25 Mcg = 1000 Iu)] 25 mcg PO DAILY Vits A,C,E/Lutein/Minerals [Ocuvite with Lutein Tablet] 1 tab PO DAILY Discharge Medication List Albuterol Inhaler [Ventolin Hfa Inhaler] 1 - 2 puff INHALATION RT-Q4H PRN 08/18/18 [History] Apixaban [Eliquis] 5 mg PO BID 08/18/18 [History] Ipratropium-Albuterol Nebulize [Duoneb 0.5 mg-3 mg/3 ml Soln] 3 ml INHALATION RT-QID PRN 08/18/18 [History] Metoprolol Tartrate 25 mg PO TID 08/18/18 [History] Montelukast [Singulair] 10 mg PO HS 08/18/18 [History] Atorvastatin [Lipitor] 80 mg PO HS 02/12/23 [History] Budesonide [Pulmicort] 0.5 mg INHALATION RT-BID 02/12/23 [History] Cyanocobalamin (Vitamin B-12) [Vitamin B-12] 1,000 mcg PO HS 02/12/23 [History] Famotidine [Pepcid] 20 mg PO DAILY 02/12/23 [History] Gabapentin [Neurontin] 100 mg PO BID@1300,2100 02/12/23 [History] Gabapentin [Neurontin] 200 mg PO DAILY@0800 02/12/23 [History] allopurinoL [Zyloprim] 100 mg PO HS 02/12/23 [History] Torsemide [Demadex] 40 mg PO DAILY 30 Days #30 tablet 02/16/23 [Rx] Ketoconazole 2% Shampoo [Nizoral] 1 applic TOPICAL Q2D 06/17/23 [History] Omalizumab [Xolair] 300 mg SQ Q28H 06/17/23 [History] Thiamine [Vitamin B-1] 100 mg PO DAILY@1200 06/17/23 [History] Cinacalcet [Sensipar] 30 mg PO DAILY #60 tab 06/19/23 [Rx] Follow up Appointment(s)/Referral(s): Arron Castro MD [Primary Care Provider] - 1-2 days Josr Watkins DO [STAFF PHYSICIAN] - 1 Week Patient Instructions/Handouts: Parathyroid Adenoma (GEN), Parathyroid Scintigraphy (DC), Hypercalcemia (DC) Activity/Diet/Wound Care/Special Instructions: 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 You will need a parathyroid scan. Discharge Disposition: HOME SELF-CARE
== END 2023-06-19 18:03 | disposition home or self-care (01) | DRG 640 ==
LOC: EC 09:09 → 5NMEDONC 12:41
PROVIDERS: ADMIT Student in an Organized Health Care Education/Training Program; ATTEND Student in an Organized Health Care Education/Training Program
PROC: HZ2ZZZZ Detoxification Services for Substance Abuse Treatment (ICD-10-PCS; principal; 2023-06-17)
DX: E83.52 Hypercalcemia (principal); J96.21 Acute and chronic respiratory failure with hypoxia; I50.32 Chronic diastolic (congestive) heart failure; I13.0 Hypertensive heart and chronic kidney disease with heart failure and stage 1 through stage 4 chronic kidney disease, or unspecified chronic kidney disease; N17.9 Acute kidney failure, unspecified; Z79.01 Long term (current) use of anticoagulants; I48.0 Paroxysmal atrial fibrillation; I27.20 Pulmonary hypertension, unspecified; F10.20 Alcohol dependence, uncomplicated; N18.9 Chronic kidney disease, unspecified; E78.5 Hyperlipidemia, unspecified; J44.89 Other specified chronic obstructive pulmonary disease; E11.22 Type 2 diabetes mellitus with diabetic chronic kidney disease; K59.00 Constipation, unspecified; Z79.899 Other long term (current) drug therapy; Z87.891 Personal history of nicotine dependence
CPT/HCPCS: 36415; 71046; 80048; 80053; 81003; 81050; 82164; 82306; 82330; 82340; 82652; 83605; 83970; 85025; 85610; 85730; 86334; 86335; 93005; 94640; 94760; 96360; 96361; 99285

== ENCOUNTER 2023-06-26 12:23 | Inpatient (IN) | payer MEDICARE ==
--- NOTE | 2023-06-26 12:41 | ED ---
SOB HPI - General Chief Complaint: Shortness of Breath Stated Complaint: RICH Time Seen by Provider: 06/26/23 12:27 Source: EMS, RN notes reviewed, old records reviewed Mode of arrival: EMS Limitations: altered mental status, physical limitation - History of Present Illness Initial Comments: This is a 73-year-old male clear for evaluation of severe shortness of breath. Patient is currently on BiPAP secondary to respiratory distress. Patient is accepted in transfer from outside facility for respiratory failure with pneumonia on history of COPD CKD and CHF MD Complaint: shortness of breath, cough, anxiety -: days(s) Severity: mild, severe Severity scale (1-10): 3 Quality: aching Consistency: constant Improves With: nothing Worsens With: nothing Known History Of: COPD, congestive heart failure Context: recent URI, anxiety, recent illness Associated Symptoms: cough, sputum production Treatments Prior to Arrival: bronchodilator, NIPPV - Related Data Home Medications Medication Instructions Recorded Confirmed Albuterol Inhaler [Ventolin Hfa 1 - 2 puff INHALATION RT-Q4H PRN 08/18/18 06/26/23 Inhaler] Apixaban [Eliquis] 5 mg PO BID 08/18/18 06/26/23 Ipratropium-Albuterol Nebulize 3 ml INHALATION RT-QID PRN 08/18/18 06/26/23 [Duoneb 0.5 mg-3 mg/3 ml Soln] Metoprolol Tartrate 25 mg PO TID 08/18/18 06/26/23 Montelukast [Singulair] 10 mg PO HS 08/18/18 06/26/23 Atorvastatin [Lipitor] 80 mg PO HS 02/12/23 06/26/23 Budesonide [Pulmicort] 0.5 mg INHALATION RT-BID 02/12/23 06/26/23 Cyanocobalamin (Vitamin B-12) 1,000 mcg PO HS 02/12/23 06/26/23 [Vitamin B-12] Famotidine [Pepcid] 20 mg PO DAILY 02/12/23 06/26/23 Gabapentin [Neurontin] 100 mg PO BID@1300,2100 02/12/23 06/26/23 Gabapentin [Neurontin] 200 mg PO DAILY@0800 02/12/23 06/26/23 allopurinoL [Zyloprim] 100 mg PO HS 02/12/23 06/26/23 Ketoconazole 2% Shampoo [Nizoral] 1 applic TOPICAL Q2D 06/17/23 06/26/23 Omalizumab [Xolair] 300 mg SQ Q28H 06/17/23 06/26/23 Thiamine [Vitamin B-1] 100 mg PO DAILY@1200 06/17/23 06/26/23 Previous Rx's Medication Instructions Recorded Torsemide [Demadex] 40 mg PO DAILY 30 Days #30 tablet 02/16/23 Cinacalcet [Sensipar] 30 mg PO DAILY #60 tab 06/19/23 Allergies Allergy/AdvReac Type Severity Reaction Status Date / Time No Known Allergies Allergy Verified 06/17/23 11:41 Review of Systems ROS Statement: Those systems with pertinent positive or pertinent negative responses have been documented in the HPI. ROS Other: All systems not noted in ROS Statement are negative. Past Medical History Past Medical History: Atrial Fibrillation, Heart Failure, COPD, GI Bleed, Hyperlipidemia, Hypertension, Renal Disease, Sleep Apnea/CPAP/BIPAP Additional Past Medical History / Comment(s): Hiatal hernia, cateracts, diverticulosis, CPAP use, Falls, History of Any Multi-Drug Resistant Organisms: None Reported Past Surgical History: Heart Catheterization Additional Past Surgical History / Comment(s): Bilateral cataract surgery, ganglion cyst removed, EGD/colonoscopy, cardioversion Past Anesthesia/Blood Transfusion Reactions: No Reported Reaction Past Psychological History: No Psychological Hx Reported Smoking Status: Former smoker Past Alcohol Use History: Daily Past Drug Use History: None Reported - Past Family History Mother Family Medical History: Cancer Father Family Medical History: Cancer, Myocardial Infarction ([place]) General Exam Limitations: altered mental status General appearance: alert, anxious, in distress, obese Head exam: Present: atraumatic, normocephalic, normal inspection Eye exam: Present: normal appearance, PERRL, EOMI. Absent: scleral icterus, conjunctival injection, periorbital swelling ENT exam: Present: normal exam, mucous membranes moist Neck exam: Present: normal inspection. Absent: tenderness, meningismus, lymphadenopathy Respiratory exam: Present: normal lung sounds bilaterally, respiratory distress, wheezes, accessory muscle use, decreased breath sounds, prolonged expiratory. Absent: rales, rhonchi, stridor Cardiovascular Exam: Present: regular rate, normal rhythm, normal heart sounds. Absent: systolic murmur, diastolic murmur, rubs, gallop, clicks GI/Abdominal exam: Present: soft, normal bowel sounds. Absent: distended, tenderness, guarding, rebound, rigid Extremities exam: Present: normal inspection, full ROM, normal capillary refill. Absent: tenderness, pedal edema, joint swelling, calf tenderness Back exam: Present: normal inspection Neurological exam: Present: alert, oriented X3, CN II-XII intact Psychiatric exam: Present: normal affect, normal mood Skin exam: Present: warm, dry, intact, normal color. Absent: rash Course Vital Signs 06/26/23 06/26/23 06/26/23 12:31 12:41 12:50 Temperature 94.3 F L Pulse Rate 74 Respiratory 12 Rate Blood Pressure 83/69 O2 Sat by Pulse 92 L Oximetry Fraction of 100 Inspired Oxygen (FIO2) 06/26/23 06/26/23 06/26/23 12:52 13:03 13:14 Temperature 93.9 F L Pulse Rate 81 81 72 Respiratory 23 Rate Blood Pressure 98/54 O2 Sat by Pulse Oximetry Fraction of Inspired Oxygen (FIO2) 06/26/23 06/26/23 06/26/23 13:20 13:30 13:40 Temperature 95.4 F L Pulse Rate 75 84 73 Respiratory 25 H 16 24 Rate Blood Pressure 100/79 127/88 100/77 O2 Sat by Pulse 93 L 82 L 100 Oximetry Fraction of Inspired Oxygen (FIO2) 06/26/23 06/26/23 06/26/23 13:50 14:00 14:20 Temperature 95.7 F L 95.9 F L Pulse Rate 82 82 84 Respiratory 20 14 24 Rate Blood Pressure 99/72 92/62 95/80 O2 Sat by Pulse 97 95 100 Oximetry Fraction of Inspired Oxygen (FIO2) 06/26/23 06/26/23 06/26/23 14:40 14:50 15:00 Temperature Pulse Rate 90 165 H 80 Respiratory 22 8 L 16 Rate Blood Pressure 100/80 94/76 83/67 O2 Sat by Pulse 94 L 84 L 79 L Oximetry Fraction of Inspired Oxygen (FIO2) 06/26/23 06/26/23 06/26/23 15:09 15:10 15:50 Temperature Pulse Rate 76 Respiratory 25 H Rate Blood Pressure 87/59 92/67 O2 Sat by Pulse 86 L 100 Oximetry Fraction of 100 Inspired Oxygen (FIO2) 06/26/23 06/26/23 16:00 16:10 Temperature Pulse Rate Respiratory Rate Blood Pressure 92/67 90/73 O2 Sat by Pulse 100 97 Oximetry Fraction of Inspired Oxygen (FIO2) - Reevaluation(s) Reevaluation #1: 06/26/23 15:29 Medical record is reviewed Reevaluation #2: 06/26/23 15:31 Patient mild improvement in mental status here in the ER Reevaluation #3: 06/26/23 15:32 Informed results questions answered Reevaluation #4: 06/26/23 15:32 Was pt. sent in by a medical professional or institution (, [facility], [employer], urgent care, hospital, or penitentiary...) When possible be specific @ -no Did you speak to anyone other than the patient for history (EMS, parent, family, police, friend...)? What history was obtained from this source @ -no Did you review nursing and triage notes (agree or disagree)? Why? @ -agree Are old charts reviewed (outside hosp., previous admission, EMS record, old EKG, old radiological studies, urgent care reports/EKG's, penitentiary records)? Report findings @ -yes Differential Diagnosis (chest pain, altered mental status, abdominal pain women, abdominal pain men, vaginal bleeding, weakness, fever, dyspnea, syncope, headache, dizziness, GI bleed, back pain, seizure, CVA, palpatations, mental health, musculoskeletal)? @ -prior EKG interpreted by me (3pts min.). @ -yes X-rays interpreted by me (1pt min.). @ -yes CHF with pleural effusions CT interpreted by me (1pt min.). @ -no U/S interpreted by me (1pt. min.). @ -no What testing was considered but not performed or refused? (CT, X-rays, U/S, labs)? Why? @ -none What meds were considered but not given or refused? Why? @ -none Did you discuss the management of the patient with other professionals (professionals i.e. [facility] Moore, [employer], lab, RT, psych nurse, social media campaign manager, equipment coordinator, teacher, corporate responsibility officer, special education case manager)? Give summary @ -no Was smoking cessation discussed for >3mins.? @ -no Was critical care preformed (if so, how long)? @ -yes31 Were there social determinants of health that impacted care today? How? (Homelessness, low income, unemployed, alcoholism, drug addiction, transportation, low edu. Level, literacy, decrease access to med. care, senior living, rehab)? @ -none Was there de-escalation of care discussed even if they declined (Discuss DNR or withdrawal of care, Hospice)? DNR status @ -no What co-morbidities impacted this encounter? (DM, HTN, Smoking, COPD, CAD, Cancer, CVA, ARF, Chemo, Hep., AIDS, mental health diagnosis, sleep apnea, morbid obesity)? @ -none Was patient admitted / discharged? Hospital course, mention meds given and route, prescriptions, significant lab abnormalities, going to OR and other pertinent info. @ - 73 male to the emergency department for evaluation of respiratory failure, hypercapnic hypoxic respiratory failure, CKD pleural effusions COPD and CHF. Patient will be admitted for further evaluation management to significant respiratory distress Admitted Undiagnosed new problem with uncertain prognosis? @ -no Drug Therapy requiring intensive monitoring for toxicity (Heparin, Nitro, Insulin, Cardizem)? @ -no Were any procedures done? @ -no Diagnosis/symptom? @ -Per PD, CHF, respiratory failure Acute, or Chronic, or Acute on Chronic? @ -Acute Uncomplicated (without systemic symptoms) or Complicated (systemic symptoms)? @ -Complicated Side effects of treatment? @ -no Exacerbation, Progression, or Severe Exacerbation? @ -exacerbation Poses a threat to life or bodily function? How? (Chest pain, [place], [place], pneumonia, PE, COPD, DKA, ARF, appy, cholecystitis, CVA, Diverticulitis, Homicidal, Suicidal, threat to staff... and all critical care pts) @ -yes significant respiratory failure with COPD, CHF hypoxia Reevaluation #5: 06/26/23 15:32 Differential Dyspnea: Coronary syndrome, arrhythmia, tamponade, asthma, COPD, pulmonary embolism, pneumonia, pneumothorax, pulmonary effusion, anaphylaxis, diabetic ketoacidosis, flailed chest, pulmonary contusion, diaphragmatic rupture, anemia, neuromuscular, this is not meant to be an all-inclusive list. - Consultations Consultation #1: Spoke with admitting physicians who agree to admit this patient, EMS H Consultation #2: Spoke with ICU regarding admission, they are agreeable Medical Decision Making - Medical Decision Making 73 male to the emergency department for evaluation of respiratory failure, hypercapnic hypoxic respiratory failure, CKD pleural effusions COPD and CHF. Patient will be admitted for further evaluation management to significant respiratory distress - Lab Data Result diagrams: 07/05/23 05:54 07/05/23 05:54 Lab Results 06/26/23 06/26/23 06/26/23 Range/Units 12:45 12:45 12:45 WBC 13.1 H (3.8-10.6) k/uL RBC 4.25 L (4.30-5.90) m/uL Hgb 14.5 (13.0-17.5) gm/dL Hct 46.6 (39.0-53.0) % MCV 109.7 H (80.0-100.0) fL MCH 34.0 (25.0-35.0) pg MCHC 31.0 (31.0-37.0) g/dL RDW 14.2 (11.5-15.5) % Plt Count 241 (150-450) k/uL MPV 8.9 Neutrophils % 84 % Lymphocytes % 7 % Monocytes % 5 % Eosinophils % 1 % Basophils % 1 % Neutrophils # 11.0 H (1.3-7.7) k/uL Lymphocytes # 0.9 L (1.0-4.8) k/uL Monocytes # 0.7 (0-1.0) k/uL Eosinophils # 0.2 (0-0.7) k/uL Basophils # 0.1 (0-0.2) k/uL Hypochromasia Marked Macrocytosis Marked A PT 11.5 (10.0-12.5) sec INR 1.1 (<1.2) APTT 29.3 (22.0-30.0) sec VBG pH (7.31-7.41) VBG pCO2 (37-51) mmHg VBG HCO3 (24-28) mmol/L Sodium (137-145) mmol/L Potassium (3.5-5.1) mmol/L Chloride (98-107) mmol/L Carbon Dioxide (22-30) mmol/L Anion Gap mmol/L BUN (9-20) mg/dL Creatinine (0.66-1.25) mg/dL Est GFR (CKD-EPI)AfAm (>60 ml/min/1.73 sqM) Est GFR (CKD-EPI)NonAf (>60 ml/min/1.73 sqM) Glucose (74-99) mg/dL Plasma Lactic Acid Michael (0.7-2.0) mmol/L Calcium (8.4-10.2) mg/dL Phosphorus (2.5-4.5) mg/dL Magnesium (1.6-2.3) mg/dL Total Bilirubin (0.2-1.3) mg/dL AST (17-59) U/L ALT (4-49) U/L Alkaline Phosphatase (38-126) U/L Troponin I (0.000-0.034) ng/mL NT-Pro-B Natriuret Pep pg/mL Total Protein (6.3-8.2) g/dL Albumin (3.5-5.0) g/dL TSH (0.465-4.680) mIU/L Free T4 (0.78-2.19) ng/dL Urine Color Yellow Urine Appearance Cloudy (Clear) Urine pH 5.5 (5.0-8.0) Ur Specific [place] 1.019 (1.001-1.035) Urine Protein 2+ H (Negative) Urine Glucose (UA) Negative (Negative) Urine Ketones Negative (Negative) Urine Blood Negative (Negative) Urine Nitrite Negative (Negative) Urine Bilirubin Negative (Negative) Urine Urobilinogen <2.0 (<2.0) mg/dL Ur Leukocyte Esterase Trace H (Negative) Urine RBC 1 (0-5) /hpf Urine WBC 6 H (0-5) /hpf Ur Squamous Epith Cells 2 (0-4) /hpf Urine Bacteria Rare H (None) /hpf Hyaline Casts 15 H (0-2) /lpf Urine Mucus Rare H (None) /hpf Urine Yeast (Budding) Few H (None) /hpf 06/26/23 06/26/23 06/26/23 Range/Units 12:45 12:45 12:45 WBC (3.8-10.6) k/uL RBC (4.30-5.90) m/uL Hgb (13.0-17.5) gm/dL Hct (39.0-53.0) % MCV (80.0-100.0) fL MCH (25.0-35.0) pg MCHC (31.0-37.0) g/dL RDW (11.5-15.5) % Plt Count (150-450) k/uL MPV Neutrophils % % Lymphocytes % % Monocytes % % Eosinophils % % Basophils % % Neutrophils # (1.3-7.7) k/uL Lymphocytes # (1.0-4.8) k/uL Monocytes # (0-1.0) k/uL Eosinophils # (0-0.7) k/uL Basophils # (0-0.2) k/uL Hypochromasia Macrocytosis PT (10.0-12.5) sec INR (<1.2) APTT (22.0-30.0) sec VBG pH (7.31-7.41) VBG pCO2 (37-51) mmHg VBG HCO3 (24-28) mmol/L Sodium 138 (137-145) mmol/L Potassium 5.2 H (3.5-5.1) mmol/L Chloride 96 L (98-107) mmol/L Carbon Dioxide 28 (22-30) mmol/L Anion Gap 14 mmol/L BUN 99 H (9-20) mg/dL Creatinine 5.25 H (0.66-1.25) mg/dL Est GFR (CKD-EPI)AfAm 12 (>60 ml/min/1.73 sqM) Est GFR (CKD-EPI)NonAf 10 (>60 ml/min/1.73 sqM) Glucose 103 H (74-99) mg/dL Plasma Lactic Acid Michael 0.7 (0.7-2.0) mmol/L Calcium 11.5 H (8.4-10.2) mg/dL Phosphorus 8.8 H (2.5-4.5) mg/dL Magnesium 2.6 H (1.6-2.3) mg/dL Total Bilirubin 0.6 (0.2-1.3) mg/dL AST 19 (17-59) U/L ALT 22 (4-49) U/L Alkaline Phosphatase 114 (38-126) U/L Troponin I 0.019 (0.000-0.034) ng/mL NT-Pro-B Natriuret Pep 73565 pg/mL Total Protein 6.9 (6.3-8.2) g/dL Albumin 3.7 (3.5-5.0) g/dL TSH 4.770 H (0.465-4.680) mIU/L Free T4 0.72 L (0.78-2.19) ng/dL Urine Color Urine Appearance (Clear) Urine pH (5.0-8.0) Ur Specific [place] (1.001-1.035) Urine Protein (Negative) Urine Glucose (UA) (Negative) Urine Ketones (Negative) Urine Blood (Negative) Urine Nitrite (Negative) Urine Bilirubin (Negative) Urine Urobilinogen (<2.0) mg/dL Ur Leukocyte Esterase (Negative) Urine RBC (0-5) /hpf Urine WBC (0-5) /hpf Ur Squamous Epith Cells (0-4) /hpf Urine Bacteria (None) /hpf Hyaline Casts (0-2) /lpf Urine Mucus (None) /hpf Urine Yeast (Budding) (None) /hpf 06/26/23 Range/Units 13:06 WBC (3.8-10.6) k/uL RBC (4.30-5.90) m/uL Hgb (13.0-17.5) gm/dL Hct (39.0-53.0) % MCV (80.0-100.0) fL MCH (25.0-35.0) pg MCHC (31.0-37.0) g/dL RDW (11.5-15.5) % Plt Count (150-450) k/uL MPV Neutrophils % % Lymphocytes % % Monocytes % % Eosinophils % % Basophils % % Neutrophils # (1.3-7.7) k/uL Lymphocytes # (1.0-4.8) k/uL Monocytes # (0-1.0) k/uL Eosinophils # (0-0.7) k/uL Basophils # (0-0.2) k/uL Hypochromasia Macrocytosis PT (10.0-12.5) sec INR (<1.2) APTT (22.0-30.0) sec VBG pH 7.01 L* (7.31-7.41) VBG pCO2 120 H* (37-51) mmHg VBG HCO3 30 H (24-28) mmol/L Sodium (137-145) mmol/L Potassium (3.5-5.1) mmol/L Chloride (98-107) mmol/L Carbon Dioxide (22-30) mmol/L Anion Gap mmol/L BUN (9-20) mg/dL Creatinine (0.66-1.25) mg/dL Est GFR (CKD-EPI)AfAm (>60 ml/min/1.73 sqM) Est GFR (CKD-EPI)NonAf (>60 ml/min/1.73 sqM) Glucose (74-99) mg/dL Plasma Lactic Acid Michael (0.7-2.0) mmol/L Calcium (8.4-10.2) mg/dL Phosphorus (2.5-4.5) mg/dL Magnesium (1.6-2.3) mg/dL Total Bilirubin (0.2-1.3) mg/dL AST (17-59) U/L ALT (4-49) U/L Alkaline Phosphatase (38-126) U/L Troponin I (0.000-0.034) ng/mL NT-Pro-B Natriuret Pep pg/mL Total Protein (6.3-8.2) g/dL Albumin (3.5-5.0) g/dL TSH (0.465-4.680) mIU/L Free T4 (0.78-2.19) ng/dL Urine Color Urine Appearance (Clear) Urine pH (5.0-8.0) Ur Specific [place] (1.001-1.035) Urine Protein (Negative) Urine Glucose (UA) (Negative) Urine Ketones (Negative) Urine Blood (Negative) Urine Nitrite (Negative) Urine Bilirubin (Negative) Urine Urobilinogen (<2.0) mg/dL Ur Leukocyte Esterase (Negative) Urine RBC (0-5) /hpf Urine WBC (0-5) /hpf Ur Squamous Epith Cells (0-4) /hpf Urine Bacteria (None) /hpf Hyaline Casts (0-2) /lpf Urine Mucus (None) /hpf Urine Yeast (Budding) (None) /hpf - EKG Data -: EKG Interpreted by Me (EKG is atrial fibrillation 82 QRS 166 QTc 476) Critical Care Time Critical Care Time: Yes Total Critical Care Time: 31 Disposition Clinical Impression: Morbid obesity, Hypoxia, COPD (chronic obstructive pulmonary disease), CHF (congestive heart failure), Acute exacerbation of chronic obstructive pulmonary disease, Acute respiratory failure, Acute respiratory failure with hypoxia and hypercarbia, Alcohol abuse, Bilateral pleural effusion Disposition: ADMITTED IP TO THIS HOSP Condition: Serious Is patient prescribed a controlled substance at d/c from ED?: No Time of Disposition: 15:30
[2023-06-26] MEDS ORDERED: MORPHINE SULFATE 2 MG/ML SYRINGE IVP STA (12:44)
[2023-06-26] MEDS ORDERED: SODIUM CHLORIDE 0.9% 1,000 ML IV STA (12:44)
[2023-06-26] MEDS ORDERED: IPRATROPIUM-ALBUTEROL 3 ML NEB INHALATION STA (12:44)
[2023-06-26] MEDS ORDERED: HYDROCORTISONE SUCCINATE 100 MG/2 ML VIAL IV STA (12:47)
[2023-06-26 13:08] LABS: Basophils # (A) 0.1 k/uL (0-0.2); Basophils % (A) 1 %; Eosinophils # (A) 0.2 k/uL (0-0.7); Eosinophils % (A) 1 %; HCT 46.6 % (39.0-53.0); HGB 14.5 gm/dL (13.0-17.5); Hypochromasia Marked; Lymphocytes # (A) 0.9 k/uL (1.0-4.8); Lymphocytes % (A) 7 %; MCV 109.7 fL (80.0-100.0); Macrocytosis Marked; Mean Platelet Volume 8.9; Monocytes # (A) 0.7 k/uL (0-1.0); Monocytes % (A) 5 %; Neutrophils % (A) 84 %; Platelet Count 241 k/uL (150-450); RBC 4.25 m/uL (4.30-5.90); RDW 14.2 % (11.5-15.5); WBC 13.1 k/uL (3.8-10.6)
[2023-06-26 13:13] LABS: ALT 22 U/L (4-49); AST 19 U/L (17-59); African American GFR (CKD) 12 (>60 ml/min/1.73 sqM); Albumin 3.7 g/dL (3.5-5.0); Alkaline Phosphatase 114 U/L (38-126); Anion Gap 14 mmol/L; Blood Urea Nitrogen 99 mg/dL (9-20); Calcium 11.5 mg/dL (8.4-10.2); Carbon Dioxide 28 mmol/L (22-30); Chloride 96 mmol/L (98-107); Glucose 103 mg/dL (74-99); Magnesium 2.6 mg/dL (1.6-2.3); Non-African American GFR(CKD) 10 (>60 ml/min/1.73 sqM); Phosphorus 8.8 mg/dL (2.5-4.5); Potassium 5.2 mmol/L (3.5-5.1); Sodium 138 mmol/L (137-145); Total Bilirubin 0.6 mg/dL (0.2-1.3); Total Protein 6.9 g/dL (6.3-8.2)
[2023-06-26 13:18] LABS: INR 1.1 (<1.2); Partial Thromboplastin Time 29.3 sec (22.0-30.0); Prothrombin Time 11.5 sec (10.0-12.5)
[2023-06-26 13:34] LABS: VBG PH 7.01 (7.31-7.41)
--- NOTE | 2023-06-26 13:48 | XR ---
EXAMINATION TYPE: XR chest 1V portable DATE OF EXAM: 06/26/2023 1:35 PM CLINICAL INDICATION:Male, 73 years old with history of sob; [facility] COMPARISON: Chest radiographs from 06/17/2023 TECHNIQUE: XR chest 1V portable Frontal view of the chest. FINDINGS: Lungs/Pleura: There is no evidence of pleural effusion, focal consolidation, or pneumothorax. Pulmonary vascularity: Pulmonary vascular congestion. Heart/mediastinum: Cardiomediastinal silhouette is enlarged and stable. Musculoskeletal: No acute osseous pathology. IMPRESSION: Low lung volumes with a generalized hazy appearance which could represent atelectasis versus pulmonar y edema correlate with serum BNP.
[2023-06-26 14:02] LABS: Appearance,Urine Cloudy (Clear); Bacteria,Urine Rare /hpf; Bilirubin,Urine Negative (Negative); Blood,Urine Negative (Negative); Budding Yeast,Urine Few /hpf; Color,Urine Yellow; Glucose,Urine (UA) Negative (Negative); Hyaline Casts,Urine 15 /lpf (0-2); Ketones,Urine Negative (Negative); Leukocyte Esterase,Urine Trace (Negative); Mucus,Urine Rare /hpf; Nitrite,Urine Negative (Negative); PH, Urine 5.5 (5.0-8.0); Protein,Urine 2+ (Negative); RBC,Urine 1 /hpf (0-5); Specific Gravity,Urine 1.019 (1.001-1.035); Squamous Epithelial Cell,Urine 2 /hpf (0-4); Urobilinogen,Urine <2.0 mg/dL (<2.0); WBC,Urine 6 /hpf (0-5)
[2023-06-26 14:04] LABS: NT-Pro-B-Type Natriuretic Pept 14900 pg/mL
[2023-06-26 14:12] LABS: T4, Free (Free Thyroxine) 0.72 ng/dL (0.78-2.19)
[2023-06-26] MEDS ORDERED: ACETAMINOPHEN TAB 325 MG TAB PO PRN (15:21)
[2023-06-26] MEDS ORDERED: NALOXONE 0.4 MG/ML 1 ML VIAL IV PRN ×2 (15:21)
[2023-06-26] MEDS ORDERED: ONDANSETRON 4 MG/2 ML VIAL IVP PRN (15:21)
[2023-06-26] MEDS ORDERED: LORazepam 2 MG/ML INJ IV PRN (15:21)
[2023-06-26] MEDS ORDERED: MORPHINE SULFATE 2 MG/ML SYRINGE IV PRN (15:21)
[2023-06-26] MEDS ORDERED: METOPROLOL TARTRATE 25 MG TAB PO SCH (16:00)
[2023-06-26] MEDS ORDERED: FUROSEMIDE 10 MG/ML 10 ML VIAL IV STA (16:08)
--- NOTE | 2023-06-26 16:57 | P.CNPUL ---
History of Present Illness Consult date: 06/26/23 Requesting physician: Patricia Mandujano Reason for consult: dyspnea, pleural effusion, obstructive sleep apnea Chief complaint: Shortness of breath History of present illness: This is a 73-year-old white male with history of multiple medical problems including chronic congestive heart failure, COPD, chronic kidney disease, chronic hypoxic respiratory failure, obstructive sleep apnea syndrome, maint ained on CPAP now patient was transferred from [facility] with 2 days history of increased shortness of breath. I have seen this patient in the past and his last evaluation in the hospital was on 02/16/2023. At that time the patient presented with acute on chronic hypoxic and hypercapnic respiratory failure with congestive heart failure and COPD. He should also had moderate severe aortic stenosis, and morbid obesity as well as chronic atrial fibrillation. Back then the patient was treated mostly aggressively with diuretics, and he was eventually discharged home after almost a week stay in the ICU. This time the patient has a very similar presentation, I saw the patient in the ER, and his is at bedside. Patient is now on BiPAP which I have adjusted to IPAP of 16 and EPAP 6, and he is also on 100% FiO2. ABG is pending, earlier venous ABG showed a pCO2 of 120 and pH of 7.01. After I evaluated the patient, I recommended immediate transfer to the ICU ABG, ultrasound of the chest, I cut down his IV fluid to KVO, started the patient on Lasix drip at 10 mg per hour. And explained to the that the patient may require intubation mechanical ventilation if his condition does not improve much and a short period of time. For low blood pressure may consider using norepinephrine, would definitely avoid using fluids at this point. Labs were reviewed chest x-ray was reviewed his BUN is 99 creatinine is 5.25, and his creatinine only a few days ago was 2.07. Apparently he is developing a worsening picture of chronic kidney disease. Could be cardiorenal. BNP level is 14,900 Review of Systems Unable to assess mostly because of his mental status and according to the he has been only short of breath for the last 2 days. No cough no fever no chills no hemoptysis and no chest pain. No nausea no vomiting no abdominal pain no melena and no hematemesis. And that is again according to his Past Medical History Past Medical History: Atrial Fibrillation, Heart Failure, COPD, GI Bleed, Hyperlipidemia, Hypertension, Renal Disease, Sleep Apnea/CPAP/BIPAP Additional Past Medical History / Comment(s): Hiatal hernia, cateracts, diverticulosis, CPAP use, Falls, History of Any Multi-Drug Resistant Organisms: None Reported Past Surgical History: Heart Catheterization Additional Past Surgical History / Comment(s): Bilateral cataract surgery, ganglion cyst removed, EGD/colonoscopy, cardioversion Past Anesthesia/Blood Transfusion Reactions: No Reported Reaction Past Psychological History: No Psychological Hx Reported Smoking Status: Former smoker Past Alcohol Use History: Daily Past Drug Use History: None Reported - Past Family History Mother Family Medical History: Cancer Father Family Medical History: Cancer, Myocardial Infarction ([place]) Medications and Allergies Home Medications Medication Instructions Recorded Confirmed Type Albuterol Inhaler [Ventolin Hfa 1 - 2 puff INHALATION RT-Q4H PRN 08/18/18 06/26/23 History Inhaler] Apixaban [Eliquis] 5 mg PO BID 08/18/18 06/26/23 History Ipratropium-Albuterol Nebulize 3 ml INHALATION RT-QID PRN 08/18/18 06/26/23 History [Duoneb 0.5 mg-3 mg/3 ml Soln] Metoprolol Tartrate 25 mg PO TID 08/18/18 06/26/23 History Montelukast [Singulair] 10 mg PO HS 08/18/18 06/26/23 History Atorvastatin [Lipitor] 80 mg PO HS 02/12/23 06/26/23 History Budesonide [Pulmicort] 0.5 mg INHALATION RT-BID 02/12/23 06/26/23 History Cyanocobalamin (Vitamin B-12) 1,000 mcg PO HS 02/12/23 06/26/23 History [Vitamin B-12] Famotidine [Pepcid] 20 mg PO DAILY 02/12/23 06/26/23 History Gabapentin [Neurontin] 100 mg PO BID@1300,2100 02/12/23 06/26/23 History Gabapentin [Neurontin] 200 mg PO DAILY@0800 02/12/23 06/26/23 History allopurinoL [Zyloprim] 100 mg PO HS 02/12/23 06/26/23 History Torsemide [Demadex] 40 mg PO DAILY 30 Days #30 tablet 02/16/23 06/26/23 Rx Ketoconazole 2% Shampoo [Nizoral] 1 applic TOPICAL Q2D 06/17/23 06/26/23 History Omalizumab [Xolair] 300 mg SQ Q28H 06/17/23 06/26/23 History Thiamine [Vitamin B-1] 100 mg PO DAILY@1200 06/17/23 06/26/23 History Cinacalcet [Sensipar] 30 mg PO DAILY #60 tab 06/19/23 06/26/23 Rx Allergies Allergy/AdvReac Type Severity Reaction Status Date / Time No Known Allergies Allergy Verified 06/17/23 11:41 Physical Exam Vitals: Vital Signs Temp Pulse Resp BP Pulse Ox FiO2 06/26/23 15:09 100 06/26/23 14:20 84 24 95/80 100 06/26/23 14:00 95.9 F L 82 14 92/62 95 06/26/23 13:50 95.7 F L 82 20 99/72 97 06/26/23 13:40 73 24 100/77 100 06/26/23 13:30 95.4 F L 84 16 127/88 82 L 06/26/23 13:20 75 25 H 100/79 93 L 06/26/23 13:14 93.9 F L 72 23 98/54 06/26/23 13:03 81 06/26/23 12:52 81 06/26/23 12:50 94.3 F L 06/26/23 12:41 100 06/26/23 12:31 74 12 83/69 92 L Intake and Output 06/26/23 06/26/23 06/26/23 06:59 14:59 22:59 Other: Weight 106.594 kg Physical Exam: Revealed 73-year-old white male obese on BiPAP, mild shortness of breath noted. Head: Atraumatic, normocephalic. HEENT:[Neck is supple.] [No neck masses.] [No thyromegaly.] [No JVD.] Chest: Diminished breath sounds at the bases, mostly diminished on the left side. Cardiac Exam: [Irregular irregular rhythm, 3/6 systolic murmur thought the precordium. Abdomen: [Soft, nontender, no megaly, no rebound, no guarding, normal bowel sounds.] Extremities: [No clubbing, trace of bipedal edema, no cyanosis.] Neurological Exam: Patient is awake, follows simple instructions but seems to be confused Psychiatric: Could not be assessed patient is anxious, flat affect, confused mental status. Skin: Evidence of mottling noted in the lower extremities. Although the patient had diminished distal pulses bilaterally in both lower extremities. Results - Laboratory Findings CBC and BMP: 06/26/23 12:45 06/26/23 12:45 PT/INR, D-dimer PT 11.5 sec (10.0-12.5) 06/26/23 12:45 INR 1.1 (<1.2) 06/26/23 12:45 Abnormal lab findings: Abnormal Labs 06/26/23 06/26/23 06/26/23 12:45 12:45 12:45 WBC 13.1 H RBC 4.25 L MCV 109.7 H Neutrophils # 11.0 H Lymphocytes # 0.9 L Macrocytosis Marked A VBG pH VBG pCO2 VBG HCO3 Potassium 5.2 H Chloride 96 L BUN 99 H Creatinine 5.25 H Glucose 103 H Calcium 11.5 H Phosphorus 8.8 H Magnesium 2.6 H TSH 4.770 H Free T4 0.72 L Urine Protein 2+ H Ur Leukocyte Esterase Trace H Urine WBC 6 H Urine Bacteria Rare H Hyaline Casts 15 H Urine Mucus Rare H Urine Yeast (Budding) Few H 06/26/23 13:06 WBC RBC MCV Neutrophils # Lymphocytes # Macrocytosis VBG pH 7.01 L* VBG pCO2 120 H* VBG HCO3 30 H Potassium Chloride BUN Creatinine Glucose Calcium Phosphorus Magnesium TSH Free T4 Urine Protein Ur Leukocyte Esterase Urine WBC Urine Bacteria Hyaline Casts Urine Mucus Urine Yeast (Budding) - Diagnostic Findings Chest x-ray: image reviewed (As noted in HPI chest x-ray showing cardiomegaly, suspect a large left pleural effusion, and interstitial edema, underlying pneumonia is felt to be less likely but not entirely ruled out) Assessment and Plan Assessment: Impression: Acute on chronic hypoxic and hypercapnic respiratory failure Shortness of breath secondary to above History of congestive heart failure, possibly diastolic in nature Morbid obesity Chronic atrial fibrillation Moderate severe aortic stenosis Obstructive sleep apnea syndrome History of alcoholism Chronic bilateral lower extremities edema Dyslipidemia Left-sided pleural effusion is suspected Recommendation: Admit patient to ICU Continue BiPAP 16/6/100% and adjust settings based on the next ABG Consider using Precedex, avoid Ativan and narcotics as well as other sedatives Start Lasix drip at 10 mg per hour Consider norepinephrine if blood pressure remains low Resume the when up updrafts 4 times a day and when necessary Continue Pulmicort Respules IV Solu-Medrol 60 mg IV push every 6 hours Gordon catheter to be placed Ultrasound of kidneys and nephrology consultation Patient is critically ill A was updated on his condition and that he may end up requiring intubation and mechanical ventilation patient is definitely high risk for intub ation/mechanical ventilation We'll continue to follow Time with Patient: Greater than 30
[2023-06-26 17:08] LABS: Glucose,Whole Blood 85 mg/dL (70-110)
[2023-06-26] MEDS: FUROSEMIDE 100 MG in SODIUM CHLORIDE 0.9% 90 ML IV SCH (17:14)
[2023-06-26] MEDS: IPRATROPIUM-ALBUTEROL 3 ML NEB INHALATION SCH ×2 (17:17→20:03)
[2023-06-26 17:26] LABS: ABG Base Excess -4.4 mmol/L; ABG HCO3 28 mmol/L (21-25); ABG PO2 99 mmHg (83-108); Allen Test Performed? Yes
[2023-06-26 17:32] LABS: ABG PCO2 92 mmHg (35-45); ABG PH 7.09 (7.35-7.45)
[2023-06-26] MEDS: NOREPINEPHRINE 4 MG in SODIUM CHLORIDE 0.9% 250 ML IV SCH (18:32)
[2023-06-26 19:44] LABS: ABG Base Excess -2.4 mmol/L; ABG HCO3 27 mmol/L (21-25); ABG Oxygen Saturation 94.6 % (94-97); ABG PO2 77 mmHg (83-108); ABG TCO2 29 mmol/L (19-24); Allen Test Performed? Yes
[2023-06-26 19:49] LABS: ABG PCO2 79 mmHg (35-45); ABG PH 7.14 (7.35-7.45)
--- NOTE | 2023-06-26 19:54 | US ---
EXAMINATION TYPE: US chest DATE OF EXAM: 06/26/2023 COMPARISON: XR 06/26/2023 today CLINICAL INDICATION: Male, 73 years old with history of Markings for thoracentesis by pulmonary staff ; TECHNIQUE: Targeted ultrasound of the posterior lower bilateral hemithoraces EXAM MEASUREMENTS: Right Pleural Effusion pocket size: 3.6 cm Right skin surface to fluid distance: 3.8 cm Not marked due to lung seen within anterior fluid pocket. Left Pleural Effusion pocket size: 5.2 cm Left skin surface to fluid distance: 4.1 cm Right side NOT marked for possible thoracentesis outside the dept. Left side marked for possible thoracentesis outside the dept. *Limited exam on ICU patient, assistance was needed to hold patient upright. Pulmonologists are able to review the images in the patient?s EMR. IMPRESSIONS: Bilateral pleural effusions left greater than right. Left side marked for thoracentesis.
--- NOTE | 2023-06-26 19:55 | US ---
EXAMINATION TYPE: US kidneys/renal and bladder DATE OF EXAM: 06/26/2023 COMPARISON: Us 02/13/2023 CLINICAL INDICATION: Male, 73 years old with history of low urine output; low urine output EXAM MEASUREMENTS: Right Kidney: 12.2 x 6.4 x 7.0 cm Left Kidney: 11.7 x 5.7 x 6.6 cm *Limited due to body habitus, in ICU, patient movement. Right Kidney: Multiple anechoic areas seen. Largest at mid pole measures: 3.6 x 3.3 x 3.5 cm. Hyperechoic focus seen lower pole: 0.3 x 0.3 x 0.4 cm. Left Kidney: Multiple anechoic areas seen. Largest at lower pole measures 3.9 x 4.2 x 3.4 cm. Bladder: Not visualized Bilateral Jets seen: No Incidental finding- gallbladder appears is dilated measuring 10.5 cm in length with wall thickening o f 0.43 cm. IMPRESSION: 1. Dilated gallbladder with thickened wall suggested correlate for signs and symptoms of acute dayday cystitis. 2. No evidence for obstructive uropathy. 3. Bilateral simple appearing renal cysts. .
[2023-06-26] MEDS: BUDESONIDE 0.5 MG/2 ML NEBU INHALATION SCH (20:02)
[2023-06-26] MEDS: ATORVASTATIN 80 MG TAB PO SCH (21:42)
[2023-06-26] MEDS: MONTELUKAST 10 MG TAB PO SCH (21:42)
[2023-06-26] MEDS ORDERED: DEXTROSE 5% IN WATER 100 ML with AMIODARONE 150 MG IV ONE (22:00)
[2023-06-26] MEDS ORDERED: AMIODARONE 360 MG in DEXTROSE 5% IN WATER 200 ML IV ONE ×2 (22:10)
[2023-06-26] MEDS: DEXMEDETOMIDINE/0.9% NACL(PMX) 400 MCG in EMPTY BAG 1 BAG IV SCH (22:39)
[2023-06-27] MEDS: FUROSEMIDE 100 MG in SODIUM CHLORIDE 0.9% 90 ML IV SCH ×3 (00:10→18:24)
[2023-06-27] MEDS: methylPREDNISolone SOD SUCCI 125 MG/2 ML VIAL IV SCH ×3 (00:16→16:08)
[2023-06-27] MEDS: DEXMEDETOMIDINE/0.9% NACL(PMX) 400 MCG in EMPTY BAG 1 BAG IV SCH ×5 (04:04→22:05)
[2023-06-27] MEDS: AMIODARONE 450 MG in DEXTROSE 5% IN WATER 250 ML IV SCH ×4 (04:48→17:02)
[2023-06-27 06:18] LABS: Basophils % (A) 0 %; Eosinophils % (A) 0 %; HCT 48.4 % (39.0-53.0); HGB 14.7 gm/dL (13.0-17.5); Hypochromasia Marked; Lymphocytes # (A) 0.7 k/uL (1.0-4.8); Lymphocytes % (A) 5 %; MCH 32.7 pg (25.0-35.0); MCHC 30.3 g/dL (31.0-37.0); MCV 107.9 fL (80.0-100.0); Macrocytosis Marked; Mean Platelet Volume 9.2; Monocytes # (A) 0.6 k/uL (0-1.0); Monocytes % (A) 4 %; Neutrophils # (A) 14.1 k/uL (1.3-7.7); Neutrophils % (A) 90 %; Platelet Count 272 k/uL (150-450); RBC 4.49 m/uL (4.30-5.90); RDW 14.4 % (11.5-15.5); WBC 15.7 k/uL (3.8-10.6)
[2023-06-27 06:33] LABS: ALT 19 U/L (4-49); AST 19 U/L (17-59); African American GFR (CKD) 12 (>60 ml/min/1.73 sqM); Albumin 3.5 g/dL (3.5-5.0); Alkaline Phosphatase 104 U/L (38-126); Anion Gap 14 mmol/L; Calcium 10.9 mg/dL (8.4-10.2); Carbon Dioxide 25 mmol/L (22-30); Chloride 97 mmol/L (98-107); Glucose 108 mg/dL (74-99); Lipase 54 U/L (23-300); Magnesium 2.4 mg/dL (1.6-2.3); Non-African American GFR(CKD) 10 (>60 ml/min/1.73 sqM); Potassium 5.9 mmol/L (3.5-5.1); Sodium 136 mmol/L (137-145); Total Bilirubin 0.8 mg/dL (0.2-1.3); Total Protein 6.6 g/dL (6.3-8.2)
[2023-06-27] MEDS: NOREPINEPHRINE 4 MG in SODIUM CHLORIDE 0.9% 250 ML IV SCH (07:30)
[2023-06-27] MEDS: FAMOTIDINE 20 MG/2 ML VIAL IV SCH (08:03)
--- NOTE | 2023-06-27 08:12 | XR ---
EXAMINATION TYPE: XR chest 1V portable DATE OF EXAM: 06/27/2023 5:52 AM CLINICAL INDICATION:Male, 73 years old with history of chf; [facility] COMPARISON: Chest radiograph from one day prior. TECHNIQUE: XR chest 1V portable Frontal view of the chest. FINDINGS: Lungs/Pleura: There is no evidence of pleural effusion, focal consolidation, or pneumothorax. Pulmonary vascularity: Pulmonary vascular congestion. Heart/mediastinum: Cardiomediastinal silhouette is enlarged and stable. Musculoskeletal: No acute osseous pathology. IMPRESSION: Cardiomegaly and mild pulmonary vascular congestion. Correlate with BNP for congestive heart failure.
[2023-06-27 08:14] LABS: Blood Urea Nitrogen 107 mg/dL (9-20)
--- NOTE | 2023-06-27 08:25 | P.HPIM ---
History of Present Illness This is a pleasant 73 years old male with multiple medical problems including Atrial Fibrillation, Heart Failure, COPD, GI Bleed, Hyperlipidemia, Hypertension, chronic kidney disease/CPAP/BIPAP,Hiatal hernia, cateracts, diverticulosis, CPAP use, Falls, Patient presents because transferred from [facility] for respiratory failure, on arrival he was hypotensive. He was recently in the hospital 06/17-06/19 for hypercalcemia and he was discharged on Sensipar which is thought secondary to hyperparathyroidism. Patient currently lives in the ICU using the BiPAP machine which limits history taken and provide information on the top of that patient is confused but he follows commands appropriately. He can answer some questions like he says he has no pain. He is asking if he can smoke now we explained for him he cannot declines the nicotine patch. Patient currently mildly tachycardic around 108, blood pressure is better 101/81 while he is on pressors. He is on BiPAP machine and he had a temperature of 98.6. showing creatinine of 5.2 with baseline 2.2-2.9, calcium slightly elevated at 11.5. WBC is 15.7 while on steroids, while rest of CBC is unremarkable TSH is elevated at 4.7 but free T4 is normal at 0.7[place] [address] Ultrasound showing on obstructive uropathy but there is acute cholecystitis with thickened wall. Chest x-ray is suspicious for cardiomegaly and pulmonary edema EKG showing A. fib with rate of 82 b per minute. Patient currently in the ICU on amiodarone drip, Lasix drip at 10 mg per hour , levophed at 0.03 and Solu-Medrol 60 mg, Precedex and IV thiamine Review of Systems Review of systems CONSTITUTIONAL: No fever, no malaise, no fatigue. HEENT: No recent visual problems or hearing problems. Denied any sore throat. CARDIOVASCULAR: No orthopnea, PND, no palpitations, no syncope. PULMONARY: No chest wall tenderness, no cough, no hemoptysis. GASTROINTESTINAL: No diarrhea, no nausea, no vomiting, no abdominal pain. Normoactive bowel sounds. NEUROLOGICAL: No headaches, no weakness, no numbness. HEMATOLOGICAL: Denies any bleeding or petechiae. GENITOURINARY: Denies any burning micturition, frequency, or urgency. MUSCULOSKELETAL/RHEUMATOLOGICAL: Denies any joint pain, swelling, or any muscle pain. ENDOCRINE: Denies any polyuria or polydipsia. Past Medical History Past Medical History: Atrial Fibrillation, Heart Failure, COPD, GI Bleed, Hyperlipidemia, Hypertension, Renal Disease, Sleep Apnea/CPAP/BIPAP Additional Past Medical History / Comment(s): Hiatal hernia, cateracts, diverticulosis, CPAP use, Falls, History of Any Multi-Drug Resistant Organisms: None Reported Past Surgical History: Heart Catheterization Additional Past Surgical History / Comment(s): Bilateral cataract surgery, ganglion cyst removed, EGD/colonoscopy, cardioversion Past Anesthesia/Blood Transfusion Reactions: No Reported Reaction Past Psychological History: No Psychological Hx Reported Smoking Status: Former smoker Past Alcohol Use History: Daily Past Drug Use History: None Reported - Past Family History Mother Family Medical History: Cancer Father Family Medical History: Cancer, Myocardial Infarction ([place]) Medications and Allergies Home Medications Medication Instructions Recorded Confirmed Type Albuterol Inhaler [Ventolin Hfa 1 - 2 puff INHALATION RT-Q4H PRN 08/18/18 06/26/23 History Inhaler] Apixaban [Eliquis] 5 mg PO BID 08/18/18 06/26/23 History Ipratropium-Albuterol Nebulize 3 ml INHALATION RT-QID PRN 08/18/18 06/26/23 History [Duoneb 0.5 mg-3 mg/3 ml Soln] Metoprolol Tartrate 25 mg PO TID 08/18/18 06/26/23 History Montelukast [Singulair] 10 mg PO HS 08/18/18 06/26/23 History Atorvastatin [Lipitor] 80 mg PO HS 02/12/23 06/26/23 History Budesonide [Pulmicort] 0.5 mg INHALATION RT-BID 02/12/23 06/26/23 History Cyanocobalamin (Vitamin B-12) 1,000 mcg PO HS 02/12/23 06/26/23 History [Vitamin B-12] Famotidine [Pepcid] 20 mg PO DAILY 02/12/23 06/26/23 History Gabapentin [Neurontin] 100 mg PO BID@1300,2100 02/12/23 06/26/23 History Gabapentin [Neurontin] 200 mg PO DAILY@0800 02/12/23 06/26/23 History allopurinoL [Zyloprim] 100 mg PO HS 02/12/23 06/26/23 History Torsemide [Demadex] 40 mg PO DAILY 30 Days #30 tablet 02/16/23 06/26/23 Rx Ketoconazole 2% Shampoo [Nizoral] 1 applic TOPICAL Q2D 06/17/23 06/26/23 History Omalizumab [Xolair] 300 mg SQ Q28H 06/17/23 06/26/23 History Thiamine [Vitamin B-1] 100 mg PO DAILY@1200 06/17/23 06/26/23 History Cinacalcet [Sensipar] 30 mg PO DAILY #60 tab 06/19/23 06/26/23 Rx Allergies Allergy/AdvReac Type Severity Reaction Status Date / Time No Known Allergies Allergy Verified 06/17/23 11:41 Physical Exam Vitals: Vital Signs Temp Pulse Pulse Resp BP BP Pulse Ox 06/27/23 06:15 81 18 105/75 94 L 06/27/23 06:00 81 16 110/76 94 L 06/27/23 05:45 83 15 120/83 96 06/27/23 05:30 86 17 107/89 95 06/27/23 05:15 97 16 111/84 95 06/27/23 05:00 109 H 14 95/76 91 L 06/27/23 04:45 99 18 119/90 87 L 06/27/23 04:36 06/27/23 04:30 89 16 103/82 94 L 06/27/23 04:15 92 16 111/82 94 L 06/27/23 04:00 98.4 F 84 13 107/80 91 L 06/27/23 03:45 80 17 105/82 87 L 06/27/23 03:30 93 18 102/81 95 06/27/23 03:15 85 15 115/82 06/27/23 03:00 81 13 90/71 91 L 06/27/23 02:45 93 16 86/62 87 L 06/27/23 02:30 90 17 96/80 87 L 06/27/23 02:15 101 H 20 100/79 88 L 06/27/23 02:00 87 16 97/75 89 L 06/27/23 01:45 94 16 97/72 93 L 06/27/23 01:30 86 16 108/75 94 L 06/27/23 01:15 91 16 94/71 90 L 06/27/23 01:00 79 16 97/81 88 L 06/27/23 00:45 92 16 82/65 92 L 06/27/23 00:30 99 33 H 92/63 92 L 06/27/23 00:20 06/27/23 00:15 81 16 98/64 89 L 06/27/23 00:05 90 16 98/64 94 L 06/27/23 00:00 98.8 F 100 16 87/68 94 L 06/26/23 23:45 96 16 92/79 92 L 06/26/23 23:30 101 H 21 107/64 94 L 06/26/23 23:15 112 H 16 104/86 96 06/26/23 23:00 121 H 20 102/75 94 L 06/26/23 22:45 114 H 18 101/78 89 L 06/26/23 22:30 98.6 F 103 H 17 100 06/26/23 22:15 142 H 32 H 95 06/26/23 22:00 112 H 16 102/70 99 06/26/23 21:45 122 H 16 97 06/26/23 21:00 100 22 92/70 92 L 06/26/23 20:21 97 06/26/23 20:08 06/26/23 20:03 101 H 06/26/23 20:00 82 18 103/86 92 L 06/26/23 19:00 113 H 16 88/62 97 06/26/23 18:04 96.4 F L 06/26/23 18:00 77 13 71/49 92 L 06/26/23 17:42 06/26/23 17:35 89 06/26/23 17:17 89 06/26/23 17:11 06/26/23 17:03 96.4 F L 87 12 111/86 97 06/26/23 17:00 95.9 F L 88 108/69 94 L 06/26/23 16:50 108/69 06/26/23 16:10 90/73 97 06/26/23 16:00 92/67 100 06/26/23 15:50 92/67 100 06/26/23 15:10 76 25 H 87/59 86 L 06/26/23 15:09 06/26/23 15:00 80 16 83/67 79 L 06/26/23 14:50 165 H 8 L 94/76 84 L 06/26/23 14:40 90 22 100/80 94 L 06/26/23 14:20 84 24 95/80 100 06/26/23 14:00 95.9 F L 82 14 92/62 95 06/26/23 13:50 95.7 F L 82 20 99/72 97 06/26/23 13:40 73 24 100/77 100 06/26/23 13:30 95.4 F L 84 16 127/88 82 L 06/26/23 13:20 75 25 H 100/79 93 L 06/26/23 13:14 93.9 F L 72 23 98/54 06/26/23 13:03 81 06/26/23 12:52 81 06/26/23 12:50 94.3 F L 06/26/23 12:41 06/26/23 12:31 74 12 83/69 92 L FiO2 06/27/23 06:15 06/27/23 06:00 06/27/23 05:45 06/27/23 05:30 06/27/23 05:15 06/27/23 05:00 06/27/23 04:45 06/27/23 04:36 75 06/27/23 04:30 06/27/23 04:15 06/27/23 04:00 06/27/23 03:45 06/27/23 03:30 06/27/23 03:15 06/27/23 03:00 06/27/23 02:45 06/27/23 02:30 06/27/23 02:15 06/27/23 02:00 06/27/23 01:45 06/27/23 01:30 06/27/23 01:15 06/27/23 01:00 06/27/23 00:45 06/27/23 00:30 06/27/23 00:20 75 06/27/23 00:15 06/27/23 00:05 06/27/23 00:00 06/26/23 23:45 06/26/23 23:30 06/26/23 23:15 06/26/23 23:00 06/26/23 22:45 06/26/23 22:30 06/26/23 22:15 06/26/23 22:00 06/26/23 21:45 06/26/23 21:00 06/26/23 20:21 06/26/23 20:08 75 06/26/23 20:03 80 06/26/23 20:00 06/26/23 19:00 06/26/23 18:04 06/26/23 18:00 80 06/26/23 17:42 80 06/26/23 17:35 06/26/23 17:17 06/26/23 17:11 100 06/26/23 17:03 100 06/26/23 17:00 06/26/23 16:50 06/26/23 16:10 06/26/23 16:00 06/26/23 15:50 06/26/23 15:10 06/26/23 15:09 100 06/26/23 15:00 06/26/23 14:50 06/26/23 14:40 06/26/23 14:20 06/26/23 14:00 06/26/23 13:50 06/26/23 13:40 06/26/23 13:30 06/26/23 13:20 06/26/23 13:14 06/26/23 13:03 06/26/23 12:52 06/26/23 12:50 06/26/23 12:41 100 06/26/23 12:31 Intake and Output 06/26/23 06/26/23 06/27/23 14:59 22:59 06:59 Intake Total 722.115 289.869 Output Total 61 340 Balance 661.115 -50.131 Intake: Intake, IV Titration 722.115 289.869 Amount Dexmedetomidine/0.9% NaCl 55.872 (Pmx) 400 mcg In Empty Bag 1 bag @ 0.2 MCG/KG/HR 5.33 mls/hr IV .[id number] GERTRUDIS Rx#:[id number] Dextrose 5% in Water 100 618 ml @ 618 mls/hr IV .Q10M ONE with Amiodarone 150 mg Rx#:[id number] Furosemide 100 mg In 70 79.333 Sodium Chloride 0.9% 90 ml @ 10 MG/HR 10 mls/hr IV .Q10H GERTRUDIS Rx#: [id number] Norepinephrine 4 mg In 34.115 154.664 Sodium Chloride 0.9% 250 ml @ 0.03 MCG/KG/MIN 12. 184 mls/hr IV .[id number] GERTRUDIS Rx#:[id number] Output: Urine 61 340 Other: Voiding Method Indwelling Catheter Indwelling Catheter Weight 106.594 kg 106.594 kg 128 kg -GENERAL: The patient is not in a awake but confused, follows commands, in mil [id number] respiratory distress, obese Generally weak HEENT: Pupils are round and equally reacting to light. EOMI. No scleral icterus. No conjunctival pallor. Normocephalic, atraumatic. No pharyngeal erythema. No thyromegaly. CARDIOVASCULAR: S1 and S2 present. No murmurs, rubs, or gallops. --PULMONARY: Chest is clear to auscultation, no wheezing , no crackles. Noted limited air entry on both sides, on BiPAP ABDOMEN: Soft, nontender, nondistended, normoactive bowel sounds. No palpable organomegaly. MUSCULOSKELETAL: No joint swelling or deformity. EXTREMITIES: No cyanosis, clubbing, or pedal edema. NEUROLOGICAL: Gross neurological examination did not reveal any focal deficits. SKIN: No rashes. no petechiae. Results CBC & Chem 7: 06/27/23 05:02 06/26/23 12:45 Labs: Abnormal Lab Results - Last 24 Hours (Table) 06/26/23 06/26/23 06/26/23 Range/Units 12:45 12:45 12:45 WBC 13.1 H (3.8-10.6) k/uL RBC 4.25 L (4.30-5.90) m/uL MCV 109.7 H (80.0-100.0) fL MCHC (31.0-37.0) g/dL Neutrophils # 11.0 H (1.3-7.7) k/uL Lymphocytes # 0.9 L (1.0-4.8) k/uL Macrocytosis Marked A ABG pH (7.35-7.45) ABG pCO2 (35-45) mmHg ABG pO2 (83-108) mmHg ABG HCO3 (21-25) mmol/L ABG Total CO2 (19-24) mmol/L VBG pH (7.31-7.41) VBG pCO2 (37-51) mmHg VBG HCO3 (24-28) mmol/L Potassium 5.2 H (3.5-5.1) mmol/L Chloride 96 L (98-107) mmol/L BUN 99 H (9-20) mg/dL Creatinine 5.25 H (0.66-1.25) mg/dL Glucose 103 H (74-99) mg/dL Calcium 11.5 H (8.4-10.2) mg/dL Phosphorus 8.8 H (2.5-4.5) mg/dL Magnesium 2.6 H (1.6-2.3) mg/dL TSH 4.770 H (0.465-4.680) mIU/L Free T4 0.72 L (0.78-2.19) ng/dL Urine Protein 2+ H (Negative) Ur Leukocyte Esterase Trace H (Negative) Urine WBC 6 H (0-5) /hpf Urine Bacteria Rare H (None) /hpf Hyaline Casts 15 H (0-2) /lpf Urine Mucus Rare H (None) /hpf Urine Yeast (Budding) Few H (None) /hpf 06/26/23 06/26/23 06/26/23 Range/Units 13:06 17:15 19:38 WBC (3.8-10.6) k/uL RBC (4.30-5.90) m/uL MCV (80.0-100.0) fL MCHC (31.0-37.0) g/dL Neutrophils # (1.3-7.7) k/uL Lymphocytes # (1.0-4.8) k/uL Macrocytosis ABG pH 7.09 L* 7.14 L* (7.35-7.45) ABG pCO2 92 H* 79 H* (35-45) mmHg ABG pO2 77 L (83-108) mmHg ABG HCO3 28 H 27 H (21-25) mmol/L ABG Total CO2 29 H (19-24) mmol/L VBG pH 7.01 L* (7.31-7.41) VBG pCO2 120 H* (37-51) mmHg VBG HCO3 30 H (24-28) mmol/L Potassium (3.5-5.1) mmol/L Chloride (98-107) mmol/L BUN (9-20) mg/dL Creatinine (0.66-1.25) mg/dL Glucose (74-99) mg/dL Calcium (8.4-10.2) mg/dL Phosphorus (2.5-4.5) mg/dL Magnesium (1.6-2.3) mg/dL TSH (0.465-4.680) mIU/L Free T4 (0.78-2.19) ng/dL Urine Protein (Negative) Ur Leukocyte Esterase (Negative) Urine WBC (0-5) /hpf Urine Bacteria (None) /hpf Hyaline Casts (0-2) /lpf Urine Mucus (None) /hpf Urine Yeast (Budding) (None) /hpf 06/27/23 Range/Units 05:02 WBC 15.7 H (3.8-10.6) k/uL RBC (4.30-5.90) m/uL MCV 107.9 H (80.0-100.0) fL MCHC 30.3 L (31.0-37.0) g/dL Neutrophils # 14.1 H (1.3-7.7) k/uL Lymphocytes # 0.7 L (1.0-4.8) k/uL Macrocytosis Marked A ABG pH (7.35-7.45) ABG pCO2 (35-45) mmHg ABG pO2 (83-108) mmHg ABG HCO3 (21-25) mmol/L ABG Total CO2 (19-24) mmol/L VBG pH (7.31-7.41) VBG pCO2 (37-51) mmHg VBG HCO3 (24-28) mmol/L Potassium (3.5-5.1) mmol/L Chloride (98-107) mmol/L BUN (9-20) mg/dL Creatinine (0.66-1.25) mg/dL Glucose (74-99) mg/dL Calcium (8.4-10.2) mg/dL Phosphorus (2.5-4.5) mg/dL Magnesium (1.6-2.3) mg/dL TSH (0.465-4.680) mIU/L Free T4 (0.78-2.19) ng/dL Urine Protein (Negative) Ur Leukocyte Esterase (Negative) Urine WBC (0-5) /hpf Urine Bacteria (None) /hpf Hyaline Casts (0-2) /lpf Urine Mucus (None) /hpf Urine Yeast (Budding) (None) /hpf Thrombosis Risk Factor Assmnt - Choose All That Apply Any of the Below Risk Factors Present?: Yes Each Factor Represents 1 point: Abnormal pulmonary function (COPD), Heart failure (<1month), Medical pt on bed rest, Obesity (BMI >25), Serious lung disease incl. pneumonia (< 1month) Other Risk Factors: Yes Each Risk Factor Represents 2 Points: Age 61-74 years Other congenital or acquired thrombophilia - If yes, enter type in comment: No Thrombosis Risk Factor Assessment Total Risk Factor Score: 7 Thrombosis Risk Factor Assessment Level: High Risk Assessment and Plan Assessment: Acute COPD exacerbation Acute on chronic diastolic CHF with a preserved ejection fraction Acute hypoxemic hypercapnic respiratory failure, secondary to above Possible acute cholecystitis A. fib and RVR Acute kidney injury on chronic kidney disease stage IV Moderate to severe aortic stenosis Hypercalcemia secondary to hyperparathyroidism on treatment Alcohol use disorder Nicotine dependence Chronic hypoxic respiratory failure Morbid obesity with BMI 41.7. Plan: Continue with amiodarone drip, Continue with Lasix drip at 10 mg per hour Continue with levophed at 0.03 Continue with Solu-Medrol 60 mg Several consultants of the case with the pulmonary/critical care team, nephrology, neurology. We'll consult general surgery for possible acute cholecystitis. Labs and medication were reviewed.. Continue same treatment. Continue with symptomatic treatment. Resume home medication. Monitor labs and vitals. DVT and GI prophylaxis. Further recommendations as per clinical course of the patient DVT prophylaxis: on eliquis GI Prophylaxis: Pepcid PT/OT: differed Prognosis is guarded
[2023-06-27] MEDS: BUDESONIDE 0.5 MG/2 ML NEBU INHALATION SCH ×2 (08:50→20:17)
[2023-06-27] MEDS: IPRATROPIUM-ALBUTEROL 3 ML NEB INHALATION SCH ×4 (08:51→20:17)
[2023-06-27] MEDS ORDERED: PANTOPRAZOLE 40 MG/10 ML VIAL IV SCH (09:00)
[2023-06-27] MEDS ORDERED: FAMOTIDINE 20 MG/2 ML VIAL IV SCH (09:00)
[2023-06-27 09:35] LABS: ABG Base Excess -2.8 mmol/L; ABG HCO3 25 mmol/L (21-25); ABG Oxygen Saturation 94.8 % (94-97); ABG PCO2 62 mmHg (35-45); ABG PH 7.21 (7.35-7.45); ABG PO2 79 mmHg (83-108); ABG TCO2 27 mmol/L (19-24); Allen Test Performed? Yes
[2023-06-27] MEDS ORDERED: SODIUM BICARB 8.4% 50 ML SYR (1 MEQ/ML) IV STA (09:41)
[2023-06-27] MEDS: THIAMINE 100 MG/ML 2 ML VIAL IVP SCH (09:52)
[2023-06-27] MEDS: CINACALCET 30 MG TAB PO SCH (09:52)
--- NOTE | 2023-06-27 09:59 | XR ---
EXAMINATION TYPE: XR chest 1V confirm line plcme DATE OF EXAM: 06/27/2023 9:35 AM CLINICAL INDICATION:Male, 73 years old with history of central line placement; [facility] COMPARISON: Chest radiographs from 06/27/2023 TECHNIQUE: XR chest 1V confirm line plcmt Frontal view of the chest. FINDINGS: Lungs/Pleura: There is no evidence of pleural effusion, focal consolidation, or pneumothorax. Pulmonary vascularity: Pulmonary vascular congestion. Heart/mediastinum: Cardiomediastinal silhouette is enlarged and stable. Musculoskeletal: No acute osseous pathology. Other findings: None Lines/Tubes: Left internal jugular central venous catheter with distal tip at the superior vena cava brachiocephal ic vein junction. IMPRESSION: 1. Left central line in appropriate position No evidence for pneumothorax. 2. Cardiomegaly, pulmonary vascular congestion and bilateral pleural effusions. Correlate with BNP f or congestive heart failure.
[2023-06-27] MEDS: metroNIDAZOLE-NS PMX 500 MG in SALINE 1 100ML.BAG IVPB SCH ×2 (10:26→16:08)
[2023-06-27 10:48] LABS: Albumin 3.3 g/dL (3.5-5.0); Bilirubin, Delta 0.4 mg/dL (0.0-0.2); Bilirubin,Unconjugated 0.2 mg/dL (0.0-1.1); Total Bilirubin 0.6 mg/dL (0.2-1.3); Total Protein 6.2 g/dL (6.3-8.2)
--- NOTE | 2023-06-27 10:55 | P.NPCON ---
History of Present Illness - Reason for Consult acute renal failure - History of Present Illness Patient is a 73-year-old male with history of hypercalcemia most likely secondary to primary hyperparathyroidism started on Sensipar during his last admission about 2 weeks ago. History of CK D stage IV with baseline creatinine around 2 mg/dL Patient also has underlying history of COPD, hypertension, CHF and chronic A. fib. He is admitted to the hospital with complaints of shortness of breath and initially presented to [facility] and has been transferred here for further care. Currently maintained on BiPAP. Patient was noted to be in A. fib with RVR and is maintained on amiodarone drip. Chest x-ray shows evidence of CHF and patient is currently being diuresed. He is maintained on Lasix drip at 10 mg an hour. Blood pressure was low and currently levo fed is at about 0.1-0.2 g. Serum creatinine at 5.2 this admission and it is down to 5.1 today. Previous creatinine has been at about 2 mg/dL with acute kidney injury in February with peak creatinine at that time around 2.9. Currently with indwelling Gordon catheter. Potassium was 5.9 this morning. Urine output at about 75 mL per hour. Review of Systems As per HPI Past Medical History Past Medical History: Atrial Fibrillation, Heart Failure, COPD, GI Bleed, Hyperlipidemia, Hypertension, Renal Disease, Sleep Apnea/CPAP/BIPAP Additional Past Medical History / Comment(s): Hiatal hernia, cateracts, diverticulosis, CPAP use, Falls, History of Any Multi-Drug Resistant Organisms: None Reported Past Surgical History: Heart Catheterization Additional Past Surgical History / Comment(s): Bilateral cataract surgery, ganglion cyst removed, EGD/colonoscopy, cardioversion Past Anesthesia/Blood Transfusion Reactions: No Reported Reaction Past Psychological History: No Psychological Hx Reported Smoking Status: Former smoker Past Alcohol Use History: Daily Past Drug Use History: None Reported - Past Family History Mother Family Medical History: Cancer Father Family Medical History: Cancer, Myocardial Infarction ([place]) Medications and Allergies Home Medications Medication Instructions Recorded Confirmed Type Albuterol Inhaler [Ventolin Hfa 1 - 2 puff INHALATION RT-Q4H PRN 08/18/18 06/26/23 History Inhaler] Apixaban [Eliquis] 5 mg PO BID 08/18/18 06/26/23 History Ipratropium-Albuterol Nebulize 3 ml INHALATION RT-QID PRN 08/18/18 06/26/23 History [Duoneb 0.5 mg-3 mg/3 ml Soln] Metoprolol Tartrate 25 mg PO TID 08/18/18 06/26/23 History Montelukast [Singulair] 10 mg PO HS 08/18/18 06/26/23 History Atorvastatin [Lipitor] 80 mg PO HS 02/12/23 06/26/23 History Budesonide [Pulmicort] 0.5 mg INHALATION RT-BID 02/12/23 06/26/23 History Cyanocobalamin (Vitamin B-12) 1,000 mcg PO HS 02/12/23 06/26/23 History [Vitamin B-12] Famotidine [Pepcid] 20 mg PO DAILY 02/12/23 06/26/23 History Gabapentin [Neurontin] 100 mg PO BID@1300,2100 02/12/23 06/26/23 History Gabapentin [Neurontin] 200 mg PO DAILY@0800 02/12/23 06/26/23 History allopurinoL [Zyloprim] 100 mg PO HS 02/12/23 06/26/23 History Torsemide [Demadex] 40 mg PO DAILY 30 Days #30 tablet 02/16/23 06/26/23 Rx Ketoconazole 2% Shampoo [Nizoral] 1 applic TOPICAL Q2D 06/17/23 06/26/23 History Omalizumab [Xolair] 300 mg SQ Q28H 06/17/23 06/26/23 History Thiamine [Vitamin B-1] 100 mg PO DAILY@1200 06/17/23 06/26/23 History Cinacalcet [Sensipar] 30 mg PO DAILY #60 tab 06/19/23 06/26/23 Rx Allergies Allergy/AdvReac Type Severity Reaction Status Date / Time No Known Allergies Allergy Verified 06/17/23 11:41 Physical Exam Vitals: Vital Signs Temp Pulse Pulse Resp BP BP Pulse Ox 06/27/23 09:45 108 H 14 93/77 89 L 06/27/23 09:30 103 H 14 98/78 06/27/23 09:15 94 10 L 117/90 06/27/23 09:00 87 21 93/71 97 06/27/23 08:45 97 22 79/53 93 L 06/27/23 08:30 73 10 L 93 L 06/27/23 08:15 93 16 87/61 89 L 06/27/23 08:00 98.4 F 85 12 95/71 92 L 06/27/23 07:56 06/27/23 07:45 92 21 106/76 94 L 06/27/23 07:30 105 H 13 101/81 93 L 06/27/23 07:15 86 12 88/66 94 L 06/27/23 07:00 93 18 92/70 94 L 06/27/23 06:45 92 15 99/77 94 L 06/27/23 06:30 81 15 97/76 95 06/27/23 06:15 81 18 105/75 94 L 06/27/23 06:00 81 16 110/76 94 L 06/27/23 05:45 83 15 120/83 96 06/27/23 05:30 86 17 107/89 95 06/27/23 05:15 97 16 111/84 95 06/27/23 05:00 109 H 14 95/76 91 L 06/27/23 04:45 99 18 119/90 87 L 06/27/23 04:36 06/27/23 04:30 89 16 103/82 94 L 06/27/23 04:15 92 16 111/82 94 L 06/27/23 04:00 98.4 F 84 13 107/80 91 L 06/27/23 03:45 80 17 105/82 87 L 06/27/23 03:30 93 18 102/81 95 06/27/23 03:15 85 15 115/82 06/27/23 03:00 81 13 90/71 91 L 06/27/23 02:45 93 16 86/62 87 L 06/27/23 02:30 90 17 96/80 87 L 06/27/23 02:15 101 H 20 100/79 88 L 06/27/23 02:00 87 16 97/75 89 L 06/27/23 01:45 94 16 97/72 93 L 06/27/23 01:30 86 16 108/75 94 L 06/27/23 01:15 91 16 94/71 90 L 06/27/23 01:00 79 16 97/81 88 L 06/27/23 00:45 92 16 82/65 92 L 06/27/23 00:30 99 33 H 92/63 92 L 06/27/23 00:20 06/27/23 00:15 81 16 98/64 89 L 06/27/23 00:05 90 16 98/64 94 L 06/27/23 00:00 98.8 F 100 16 87/68 94 L 06/26/23 23:45 96 16 92/79 92 L 06/26/23 23:30 101 H 21 107/64 94 L 06/26/23 23:15 112 H 16 104/86 96 06/26/23 23:00 121 H 20 102/75 94 L 06/26/23 22:45 114 H 18 101/78 89 L 06/26/23 22:30 98.6 F 103 H 17 100 06/26/23 22:15 142 H 32 H 95 06/26/23 22:00 112 H 16 102/70 99 06/26/23 21:45 122 H 16 97 06/26/23 21:00 100 22 92/70 92 L 06/26/23 20:21 97 06/26/23 20:08 06/26/23 20:03 101 H 06/26/23 20:00 82 18 103/86 92 L 06/26/23 19:00 113 H 16 88/62 97 06/26/23 18:04 96.4 F L 06/26/23 18:00 77 13 71/49 92 L 06/26/23 17:42 06/26/23 17:35 89 06/26/23 17:17 89 06/26/23 17:11 06/26/23 17:03 96.4 F L 87 12 111/86 97 06/26/23 17:00 95.9 F L 88 108/69 94 L 06/26/23 16:50 108/69 06/26/23 16:10 90/73 97 06/26/23 16:00 92/67 100 06/26/23 15:50 92/67 100 06/26/23 15:10 76 25 H 87/59 86 L 06/26/23 15:09 06/26/23 15:00 80 16 83/67 79 L 06/26/23 14:50 165 H 8 L 94/76 84 L 06/26/23 14:40 90 22 100/80 94 L 06/26/23 14:20 84 24 95/80 100 06/26/23 14:00 95.9 F L 82 14 92/62 95 06/26/23 13:50 95.7 F L 82 20 99/72 97 06/26/23 13:40 73 24 100/77 100 06/26/23 13:30 95.4 F L 84 16 127/88 82 L 06/26/23 13:20 75 25 H 100/79 93 L 06/26/23 13:14 93.9 F L 72 23 98/54 06/26/23 13:03 81 06/26/23 12:52 81 06/26/23 12:50 94.3 F L 06/26/23 12:41 06/26/23 12:31 74 12 83/69 92 L FiO2 06/27/23 09:45 06/27/23 09:30 06/27/23 09:15 06/27/23 09:00 06/27/23 08:45 06/27/23 08:30 06/27/23 08:15 06/27/23 08:00 75 06/27/23 07:56 75 06/27/23 07:45 06/27/23 07:30 06/27/23 07:15 06/27/23 07:00 06/27/23 06:45 06/27/23 06:30 06/27/23 06:15 06/27/23 06:00 06/27/23 05:45 06/27/23 05:30 06/27/23 05:15 06/27/23 05:00 06/27/23 04:45 06/27/23 04:36 75 06/27/23 04:30 06/27/23 04:15 06/27/23 04:00 06/27/23 03:45 06/27/23 03:30 06/27/23 03:15 06/27/23 03:00 06/27/23 02:45 06/27/23 02:30 06/27/23 02:15 06/27/23 02:00 06/27/23 01:45 06/27/23 01:30 06/27/23 01:15 06/27/23 01:00 06/27/23 00:45 06/27/23 00:30 06/27/23 00:20 75 06/27/23 00:15 06/27/23 00:05 06/27/23 00:00 06/26/23 23:45 06/26/23 23:30 06/26/23 23:15 06/26/23 23:00 06/26/23 22:45 06/26/23 22:30 06/26/23 22:15 06/26/23 22:00 06/26/23 21:45 06/26/23 21:00 06/26/23 20:21 06/26/23 20:08 75 06/26/23 20:03 80 06/26/23 20:00 06/26/23 19:00 06/26/23 18:04 06/26/23 18:00 80 06/26/23 17:42 80 06/26/23 17:35 06/26/23 17:17 06/26/23 17:11 100 06/26/23 17:03 100 06/26/23 17:00 06/26/23 16:50 06/26/23 16:10 06/26/23 16:00 06/26/23 15:50 06/26/23 15:10 06/26/23 15:09 100 06/26/23 15:00 06/26/23 14:50 06/26/23 14:40 06/26/23 14:20 06/26/23 14:00 06/26/23 13:50 06/26/23 13:40 06/26/23 13:30 06/26/23 13:20 06/26/23 13:14 06/26/23 13:03 06/26/23 12:52 06/26/23 12:50 06/26/23 12:41 100 06/26/23 12:31 Intake and Output 06/26/23 06/27/23 06/27/23 22:59 06:59 14:59 Intake Total 722.115 289.869 291.276 Output Total 61 340 175 Balance 661.115 -50.131 116.276 Intake: IV 40 Sodium Chloride 0.9% 1, 40 000 ml @ 20 mls/hr IV . Q24H [facility] Rx#:[id number] Intake, IV Titration 722.115 289.869 251.276 Amount Dexmedetomidine/0.9% NaCl 55.872 63.246 (Pmx) 400 mcg In Empty Bag 1 bag @ 0.2 MCG/KG/HR 5.33 mls/hr IV .[id number] [facility] Rx#:[id number] Dextrose 5% in Water 100 618 ml @ 618 mls/hr IV .Q10M ONE with Amiodarone 150 mg Rx#:[id number] Furosemide 100 mg In 70 79.333 95.5 Sodium Chloride 0.9% 90 ml @ 10 MG/HR 10 mls/hr IV .Q10H [facility] Rx#: [id number] Norepinephrine 4 mg In 34.115 154.664 92.530 Sodium Chloride 0.9% 250 ml @ 0.03 MCG/KG/MIN 12. 184 mls/hr IV .[id number] [facility] Rx#:[id number] Output: Urine 61 340 175 Other: Voiding Method Indwelling Catheter Indwelling Catheter Weight 106.594 kg 128 kg ABP, PAP, CO, CI - Last 8 Hours Arterial Blood Pressure 102/61 Arterial Blood Pressure 102/65 Arterial Blood Pressure 99/61 patient is awake. He is restless and asking to take the BiPAP mask off. He starting to get combative. Patient is obese Trace edema noted lower extremities Abdomen is soft obese nontender. Results - Lab Results Most recent lab results ABG pH 7.21 (7.35-7.45) L 06/27/23 09:33 ABG pCO2 62 mmHg (35-45) H 06/27/23 09:33 ABG pO2 79 mmHg (83-108) L 06/27/23 09:33 ABG HCO3 25 mmol/L (21-25) 06/27/23 09:33 ABG O2 Saturation 94.8 % (94-97) 06/27/23 09:33 Calcium 10.9 mg/dL (8.4-10.2) H 06/27/23 05:02 Phosphorus 8.0 mg/dL (2.5-4.5) H 06/27/23 05:02 Magnesium 2.4 mg/dL (1.6-2.3) H 06/27/23 05:02 06/27/23 05:02 06/27/23 05:02 Assessment and Plan Assessment: 1. Acute kidney injury, ATN currently nonoliguric. Component of cardiorenal syndrome as well. Indwelling Gordon catheter noted. Continue with Lasix drip. We will continue to monitor for need for renal replacement therapy. 2. Hyperkalemia associated with acute kidney injury. No evidence of obstruction on ultrasound. Status post IV treatment. 3. Acute hypercapnic respiratory failure currently maintained on BiPAP 4. Chronic kidney disease NKF stage IV with baseline creatinine around 2 mg/dL etiology is likely nephrosclerosis. Previous UA showed negative to trace protein. UA this admission shows 2+ protein. This will be monitored 5. Hypercalcemia associated with primary hyperparathyroidism, started on Sensipar last admission. Patient's was supposed to have nuclear scan of the parathyroid gland performed as outpatient. 6. Moderate pulmonary hypertension 7. Morbid obesity 8. A. fib with RVR currently maintained on amiodarone drip Plan: Continue with Lasix drip Repeat potassium later on today Continue with Sensipar 30 mg daily. Repeat labs in a.m. Avoid nephrotoxic agents We will continue to monitor for need for renal replacement therapy on a daily basis. Repeat chest x-ray in a.m. Thank you for the consultation. We will continue to follow the patient with you during his hospitalization.
[2023-06-27] MEDS: LORazepam 2 MG/ML INJ IV PRN ×2 (11:04→20:43)
--- NOTE | 2023-06-27 11:10 | OP ---
OPERATIVE REPORT DATE OF SERVICE : PROCEDURE PERFORMED: Placement of the left radial arterial line. PREOPERATIVE DIAGNOSES: Hypotension and congestive heart failure with acute hypoxic and hypercapnic respiratory failure. POSTOPERATIVE DIAGNOSIS: Hypotension and congestive heart failure with acute hypoxic and hypercapnic respiratory failure. INDICATIONS: Hypotension, needed for hemodynamic monitoring. DESCRIPTION OF PROCEDURE: The left wrist was prepared in a sterile fashion. Drapes were applied. The left radial artery was palpated, easily cannulated, and a guidewire was placed. A Cook's catheter was inserted over the guidewire, and the guidewire was removed. Good blood flow, good waveform noted, no complications. Line was secured using 3.0 silk sutures. MMODL / IJN: [id number] /
--- NOTE | 2023-06-27 11:13 | P.PN ---
Subjective Progress Note Date: 06/27/23 Principal diagnosis: Acute on chronic hypoxic and hypercapnic respiratory failure This is a 73-year-old white male with history of multiple medical problems including chronic congestive heart failure, COPD, chronic kidney disease, chronic hypoxic respiratory failure, obstructive sleep apnea syndrome, maintained on CPAP now patient was transferred from [facility] with 2 days history of increased shortness of breath. I have seen this patient in the past and his last evaluation in the hospital was on 02/16/2023. At that time the patient presented with acute on chronic hypoxic and hypercapnic respiratory failure with congestive heart failure and COPD. He should also had moderate severe aortic stenosis, and morbid obesity as well as chronic atrial fibrillation. Back then the patient was treated mostly aggressively with diuretics, and he was eventually discharged home after almost a week stay in the ICU. This time the patient has a very similar presentation, I saw the patient in the ER, and his is at bedside. Patient is now on BiPAP which I have adjusted to IPAP of 16 and EPAP 6, and he is also on 100% FiO2. ABG is pending, earlier venous ABG showed a pCO2 of 120 and pH of 7.01. After I evaluated the patient, I recommended immediate transfer to the ICU ABG, ultrasound of the chest, I cut down his IV fluid to KVO, started the patient on Lasix drip at 10 mg per hour. And explained to the that the patient may require intubation mechanical ventilation if his condition does not improve much and a short period of time. For low blood pressure may consider using norepinephrine, would definitely avoid using fluids at this point. Labs were reviewed chest x-ray was reviewed his BUN is 99 creatinine is 5.25, and his creatinine only a few days ago was 2.07. Apparently he is developing a worsening picture of chronic kidney disease. Could be cardiorenal. BNP level is 14,900 Reevaluated today on 06/27/2023, patient remains in the ICU, remains on Lasix drip at 10 mg per hour, amiodarone 0.5 mg/m for atrial fibrillation/RVR which she developed last night patient does have chronic history of atrial fibrillation remains on norepinephrine at 0.04 mcg/kg/m, he is on Precedex at 0.2 mcg/kg/hr, IV fluid at 20 mL per hour in the form of 0.9 normal saline. Blood pressure is noted to be borderline. Hence patient had a left subclavian t riple-lumen catheter placed and a left radial arterial line placement. Repeat ABG this morning continues to show significant metabolic and respiratory acidosis pO2 of 79 pCO2 62 pH of 7.21, potassium is up to 5.19, patient was given 1 amp of bicarb for his acidosis. His BUN is 107 creatinine 5.17, slightly better compared to yesterday, patient is being evaluated by nephrology. Remains on BiPAP at 16/6/75% FiO2. And overall his clinical status is critically ill/marginal. Patient is definitely high risk for intubation mechanical ventilation, the patient and his are both aware of this, however at this point I will hold on mechanically ventilated the patient. We'll continue BiPAP, continue Lasix drip, and continue pressors patient may eventually require hemodialysis. Ultrasound of the chest showed small bilateral pleural effusions left more so than right, the left sided pocket is not large enough to consider safe left sided thoracentesis. Objective - Vital Signs Vital signs: Vital Signs Temp 98.4 F 06/27/23 08:00 Pulse 108 H 06/27/23 09:45 Resp 14 06/27/23 09:45 BP 93/77 06/27/23 09:45 Pulse Ox 89 L 06/27/23 09:45 FiO2 75 06/27/23 08:00 Intake & Output 06/26/23 06/27/23 06/27/23 18:59 06:59 18:59 Intake Total 30 981.984 302.602 Output Total 6 395 175 Balance 24 586.984 127.602 Weight 106.594 kg 128 kg Intake: IV 40 Sodium Chloride 0.9% 1, 40 000 ml @ 20 mls/hr IV . Q24H [facility] Rx#:[id number] Intake, IV Titration 30 981.984 262.602 Amount Dexmedetomidine/0.9% NaCl 55.872 74.572 (Pmx) 400 mcg In Empty Bag 1 bag @ 0.2 MCG/KG/HR 5.33 mls/hr IV .[id number] [facility] Rx#:[id number] Dextrose 5% in Water 100 618 ml @ 618 mls/hr IV .Q10M ONE with Amiodarone 150 mg Rx#:[id number] Furosemide 100 mg In 30 119.333 95.5 Sodium Chloride 0.9% 90 ml @ 10 MG/HR 10 mls/hr IV .Q10H [facility] Rx#: [id number] Norepinephrine 4 mg In 188.779 92.530 Sodium Chloride 0.9% 250 ml @ 0.03 MCG/KG/MIN 12. 184 mls/hr IV .[id number] [facility] Rx#:[id number] Output: Urine 6 395 175 Other: Voiding Method Indwelling Catheter Indwelling Catheter ABP, PAP, CO, CI - Last Documented Arterial Blood Pressure 102/61 - Exam Physical Exam: Revealed 73-year-old white male obese on BiPAP, noted to be slightly dyspneic Head: Atraumatic, normocephalic. HEENT:[Neck is supple.] [No neck masses.] [No thyromegaly.] [No JVD.] Chest: Diminished breath sounds at the bases, mostly diminished on the left side. Cardiac Exam: [Irregular irregular rhythm, 3/6 systolic murmur thought the precordium. Abdomen: Obese, [Soft, nontender, no megaly, no rebound, no guarding, normal bowel sounds.] Extremities: [No clubbing, trace of bipedal edema, no cyanosis.] Neurological Exam: Patient is awake, follows simple instructions but seems to be confused Psychiatric: Could not be assessed , nonetheless the patient has confused mental status. Skin: No rashes, diminished distal pulses bilaterally. - Labs CBC & Chem 7: 06/27/23 05:02 06/27/23 05:02 Labs: Abnormal Lab Results - Last 24 Hours (Table) 06/26/23 06/26/23 06/26/23 Range/Units 12:45 12:45 12:45 WBC 13.1 H (3.8-10.6) k/uL RBC 4.25 L (4.30-5.90) m/uL MCV 109.7 H (80.0-100.0) fL MCHC (31.0-37.0) g/dL Neutrophils # 11.0 H (1.3-7.7) k/uL Lymphocytes # 0.9 L (1.0-4.8) k/uL Macrocytosis Marked A ABG pH (7.35-7.45) ABG pCO2 (35-45) mmHg ABG pO2 (83-108) mmHg ABG HCO3 (21-25) mmol/L ABG Total CO2 (19-24) mmol/L VBG pH (7.31-7.41) VBG pCO2 (37-51) mmHg VBG HCO3 (24-28) mmol/L Sodium (137-145) mmol/L Potassium 5.2 H (3.5-5.1) mmol/L Chloride 96 L (98-107) mmol/L BUN 99 H (9-20) mg/dL Creatinine 5.25 H (0.66-1.25) mg/dL Glucose 103 H (74-99) mg/dL Calcium 11.5 H (8.4-10.2) mg/dL Phosphorus 8.8 H (2.5-4.5) mg/dL Magnesium 2.6 H (1.6-2.3) mg/dL Delta Bilirubin (0.0-0.2) mg/dL AST (17-59) U/L Total Protein (6.3-8.2) g/dL Albumin (3.5-5.0) g/dL TSH 4.770 H (0.465-4.680) mIU/L Free T4 0.72 L (0.78-2.19) ng/dL Urine Protein 2+ H (Negative) Ur Leukocyte Esterase Trace H (Negative) Urine WBC 6 H (0-5) /hpf Urine Bacteria Rare H (None) /hpf Hyaline Casts 15 H (0-2) /lpf Urine Mucus Rare H (None) /hpf Urine Yeast (Budding) Few H (None) /hpf 06/26/23 06/26/23 06/26/23 Range/Units 13:06 17:15 19:38 WBC (3.8-10.6) k/uL RBC (4.30-5.90) m/uL MCV (80.0-100.0) fL MCHC (31.0-37.0) g/dL Neutrophils # (1.3-7.7) k/uL Lymphocytes # (1.0-4.8) k/uL Macrocytosis ABG pH 7.09 L* 7.14 L* (7.35-7.45) ABG pCO2 92 H* 79 H* (35-45) mmHg ABG pO2 77 L (83-108) mmHg ABG HCO3 28 H 27 H (21-25) mmol/L ABG Total CO2 29 H (19-24) mmol/L VBG pH 7.01 L* (7.31-7.41) VBG pCO2 120 H* (37-51) mmHg VBG HCO3 30 H (24-28) mmol/L Sodium (137-145) mmol/L Potassium (3.5-5.1) mmol/L Chloride (98-107) mmol/L BUN (9-20) mg/dL Creatinine (0.66-1.25) mg/dL Glucose (74-99) mg/dL Calcium (8.4-10.2) mg/dL Phosphorus (2.5-4.5) mg/dL Magnesium (1.6-2.3) mg/dL Delta Bilirubin (0.0-0.2) mg/dL AST (17-59) U/L Total Protein (6.3-8.2) g/dL Albumin (3.5-5.0) g/dL TSH (0.465-4.680) mIU/L Free T4 (0.78-2.19) ng/dL Urine Protein (Negative) Ur Leukocyte Esterase (Negative) Urine WBC (0-5) /hpf Urine Bacteria (None) /hpf Hyaline Casts (0-2) /lpf Urine Mucus (None) /hpf Urine Yeast (Budding) (None) /hpf 06/27/23 06/27/23 06/27/23 Range/Units 05:02 05:02 09:30 WBC 15.7 H (3.8-10.6) k/uL RBC (4.30-5.90) m/uL MCV 107.9 H (80.0-100.0) fL MCHC 30.3 L (31.0-37.0) g/dL Neutrophils # 14.1 H (1.3-7.7) k/uL Lymphocytes # 0.7 L (1.0-4.8) k/uL Macrocytosis Marked A ABG pH (7.35-7.45) ABG pCO2 (35-45) mmHg ABG pO2 (83-108) mmHg ABG HCO3 (21-25) mmol/L ABG Total CO2 (19-24) mmol/L VBG pH (7.31-7.41) VBG pCO2 (37-51) mmHg VBG HCO3 (24-28) mmol/L Sodium 136 L (137-145) mmol/L Potassium 5.9 H (3.5-5.1) mmol/L Chloride 97 L (98-107) mmol/L BUN 107 H* (9-20) mg/dL Creatinine 5.17 H (0.66-1.25) mg/dL Glucose 108 H (74-99) mg/dL Calcium 10.9 H (8.4-10.2) mg/dL Phosphorus 8.0 H (2.5-4.5) mg/dL Magnesium 2.4 H (1.6-2.3) mg/dL Delta Bilirubin 0.4 H (0.0-0.2) mg/dL AST 16 L (17-59) U/L Total Protein 6.2 L (6.3-8.2) g/dL Albumin 3.3 L (3.5-5.0) g/dL TSH (0.465-4.680) mIU/L Free T4 (0.78-2.19) ng/dL Urine Protein (Negative) Ur Leukocyte Esterase (Negative) Urine WBC (0-5) /hpf Urine Bacteria (None) /hpf Hyaline Casts (0-2) /lpf Urine Mucus (None) /hpf Urine Yeast (Budding) (None) /hpf 06/27/23 Range/Units 09:33 WBC (3.8-10.6) k/uL RBC (4.30-5.90) m/uL MCV (80.0-100.0) fL MCHC (31.0-37.0) g/dL Neutrophils # (1.3-7.7) k/uL Lymphocytes # (1.0-4.8) k/uL Macrocytosis ABG pH 7.21 L (7.35-7.45) ABG pCO2 62 H (35-45) mmHg ABG pO2 79 L (83-108) mmHg ABG HCO3 (21-25) mmol/L ABG Total CO2 27 H (19-24) mmol/L VBG pH (7.31-7.41) VBG pCO2 (37-51) mmHg VBG HCO3 (24-28) mmol/L Sodium (137-145) mmol/L Potassium (3.5-5.1) mmol/L Chloride (98-107) mmol/L BUN (9-20) mg/dL Creatinine (0.66-1.25) mg/dL Glucose (74-99) mg/dL Calcium (8.4-10.2) mg/dL Phosphorus (2.5-4.5) mg/dL Magnesium (1.6-2.3) mg/dL Delta Bilirubin (0.0-0.2) mg/dL AST (17-59) U/L Total Protein (6.3-8.2) g/dL Albumin (3.5-5.0) g/dL TSH (0.465-4.680) mIU/L Free T4 (0.78-2.19) ng/dL Urine Protein (Negative) Ur Leukocyte Esterase (Negative) Urine WBC (0-5) /hpf Urine Bacteria (None) /hpf Hyaline Casts (0-2) /lpf Urine Mucus (None) /hpf Urine Yeast (Budding) (None) /hpf Assessment and Plan Assessment: Impression: Acute on chronic hypoxic and hypercapnic respiratory failure History of congestive heart failure, possibly diastolic in nature Acute on chronic kidney disease Morbid obesity Chronic atrial fibrillation Atrial fibrillation with RVR, presently on amiodarone. Moderate severe aortic stenosis Obstructive sleep apnea syndrome History of alcoholism Chronic bilateral lower extremities edema Dyslipidemia Mild bilateral pleural effusions secondary to congestive heart failure/diastolic in nature, echocardiogram is pending acute hyperkalemia secondary to severe respiratory and metabolic acidosis and acute on chronic renal failure Recommendation: Continue to monitor in the ICU. Continue Lasix drip Continue BiPAP 16/6/75% and adjust settings based on the next ABG Continuex, Precedex avoid Ativan and narcotics as well as other sedatives Continue Lasix drip at 10 mg per hour continue norepinephrin, and titrate accordingly Started patient on amiodarone, cardiology to see on consultation Resume home eligayathri Ordaz updrafts 4 times a day and when necessary Continue Pulmicort Respules IV Solu-Medrol 60 mg IV push every 6 hours Daily weight, strict I's and O Patient is critically ill, Critical care time is over 30 minutes excluding time for procedures We'll continue to follow Time with Patient: Greater than 30
--- NOTE | 2023-06-27 11:55 | P.CON ---
Consult Note - . Consult date: 06/27/23 Abdominal Pain HPI - General Source: patient (This is a pleasant 73 years old male presents with SBO and hypotension requiring BIPAP. US showed possible cholecystitis), EMS, RN notes reviewed, old records reviewed Mode of arrival: EMS Limitations: altered mental status - History of Present Illness Severity: mild, severe Severity scale (1-10): 3 - Related Data Home Medications Medication Instructions Recorded Confirmed Albuterol Inhaler [Ventolin Hfa 1 - 2 puff INHALATION RT-Q4H PRN 08/18/18 06/26/23 Inhaler] Apixaban [Eliquis] 5 mg PO BID 08/18/18 06/26/23 Ipratropium-Albuterol Nebulize 3 ml INHALATION RT-QID PRN 08/18/18 06/26/23 [Duoneb 0.5 mg-3 mg/3 ml Soln] Metoprolol Tartrate 25 mg PO TID 08/18/18 06/26/23 Montelukast [Singulair] 10 mg PO HS 08/18/18 06/26/23 Atorvastatin [Lipitor] 80 mg PO HS 02/12/23 06/26/23 Budesonide [Pulmicort] 0.5 mg INHALATION RT-BID 02/12/23 06/26/23 Cyanocobalamin (Vitamin B-12) 1,000 mcg PO HS 02/12/23 06/26/23 [Vitamin B-12] Famotidine [Pepcid] 20 mg PO DAILY 02/12/23 06/26/23 Gabapentin [Neurontin] 100 mg PO BID@1300,2100 02/12/23 06/26/23 Gabapentin [Neurontin] 200 mg PO DAILY@0800 02/12/23 06/26/23 allopurinoL [Zyloprim] 100 mg PO HS 02/12/23 06/26/23 Ketoconazole 2% Shampoo [Nizoral] 1 applic TOPICAL Q2D 06/17/23 06/26/23 Omalizumab [Xolair] 300 mg SQ Q28H 06/17/23 06/26/23 Thiamine [Vitamin B-1] 100 mg PO DAILY@1200 06/17/23 06/26/23 Previous Rx's Medication Instructions Recorded Torsemide [Demadex] 40 mg PO DAILY 30 Days #30 tablet 02/16/23 Cinacalcet [Sensipar] 30 mg PO DAILY #60 tab 06/19/23 Allergies Allergy/AdvReac Type Severity Reaction Status Date / Time No Known Allergies Allergy Verified 06/17/23 11:41 Review of Systems - Review of Systems Constitutional: Reports: as per HPI (Patient confused, unable to answer) Physical Exam - Physical Exam Eyes, Ears, Nose, Throat Exam: PERRL/EOMI Neck: Neck, full range of motion Respiratory: chest non-tender, respiratory distress, decreased breath sounds, accessory muscle use Cardiovascular/Chest: tachycardia Gastrointestinal/Abdominal: non tender, soft Extremity: normal range of motion Neurological: other (lethargic) Assessment and Plan (1) Cholecystitis Narrative/Plan: 1. US and labs reviewed. 2. HIDA scan ordered 3. Total Bilirubin elevated: Hepatic Function Panel ordered 4. Rocephin/Flagyl 5. ICU care Current Visit: Yes Status: Acute Code(s): K81.9 - CHOLECYSTITIS, UNSPECIFIED SNOMED Code(s): 77462396
[2023-06-27] MEDS ORDERED: THIAMINE 100 MG TAB PO SCH (12:00)
--- NOTE | 2023-06-27 12:26 | OP ---
OPERATIVE REPORT DATE OF SERVICE : PROCEDURE PERFORMED: Placement of a left subclavian triple-lumen catheter. PREOPERATIVE DIAGNOSES: Acute hypoxic and hypercapnic respiratory failure with acute congestive heart failure, hypotension, the patient is requiring pressors. POSTOPERATIVE DIAGNOSES: Acute hypoxic and hypercapnic respiratory failure with acute congestive heart failure, hypotension, the patient is requiring pressors. INDICATIONS: The patient is requiring pressors and is hypotensive. ANESTHESIA USED: 2 mL of 1% lidocaine. DESCRIPTION OF PROCEDURE: The patient was placed in a supine position, the area of the left subclavian region was prepared in a sterile fashion. Drapes were applied. The area below the left clavicle was locally anesthetized with lidocaine. Then using the inferior approach, the left subclavian vein was easily cannulated, and a guidewire was placed. A triple-lumen catheter was inserted over the guidewire, and the guidewire was removed. Good blood flow noted in 3 different ports of the triple-lumen catheter. Line was secured using 3.0 silk sutures. Chest x-ray showed adequate placement of the line and no complications. MMODL / IJN: [id number] /
[2023-06-27] MEDS: APIXABAN 5 MG TAB PO SCH ×2 (13:27→16:44)
[2023-06-27 14:04] LABS: ABG Base Excess -1.2 mmol/L; ABG HCO3 26 mmol/L (21-25); ABG Oxygen Saturation 93.9 % (94-97); ABG PCO2 57 mmHg (35-45); ABG PH 7.26 (7.35-7.45); ABG PO2 72 mmHg (83-108); ABG TCO2 28 mmol/L (19-24); Allen Test Performed? Yes
--- NOTE | 2023-06-27 14:31 | P.CRDCN ---
History of Present Illness History of present illness: HISTORY OF PRESENTING ILLNESS Patient is pleasant 73-year-old male with history of alcohol abuse, diastolic heart failure, COPD, atrial fibrillation, chronic kidney disease, obstructive sleep apnea, aortic stenosis. Patient currently lethargic receiving Precedex and Ativan for alcohol withdrawals. Therefore much of history is supplied by chart. Patient had been complaining of increasing shortness breath over the prior 2 days and initially went to [facility] abdomen was transferred to [facility]. His found to have hypoxic, hypercapnic respiratory failure as well as acute kidney injury with creatinine up to 5.2 with baseline of 2.0. Per history no recent fevers or chills or other complaints. EKG shows atrial fibrillation, right bundle branch morphology with nonspecific minimal ST depressions. Troponin 1 noted be normal. REVIEW OF SYSTEMS At the time of my exam: Unable to obtain secondary to patient altered. PHYSICAL EXAMINATION Vital signs reviewed. CONSTITUTIONAL: No apparent distress. HEENT: Head is normocephalic. Pupils are equal, round. Sclerae anicteric. Mucous membranes of the mouth are moist. No JVD. No carotid bruit. CHEST EXAMINATION: Lungs are clear to auscultation. No chest wall tenderness is noted on palpation or with deep breathing. HEART EXAMINATION: Irregular rate and rhythm. S1, S2 heard. No murmurs, gallops or rub. ABDOMEN: Soft, nontender. Positive bowel sounds. EXTREMITIES: 2+ peripheral pulses, no lower extremity edema and no calf tenderness. NEUROLOGIC EXAMINATION: Patient is awake, somnolent on bipap ASSESSMENT 1. Acute on chronic hypercapnic respiratory failure 2. Persistent atrial fibrillation 3. Acute kidney injury, baseline creatinine 2.0 4. Aortic stenosis 5. Acute on chronic diastolic heart failure 6. Alcohol withdrawal 7. Alcohol abuse 8. Hypotension 9. Altered mental status appears likely related to alcohol withdrawal and medications, hypercapnia PLAN Patient with multiple metabolic arrangements. Check echo today left ventricular function as well as degree of aortic stenosis. Agree with Lasix drip and monitor closely. Continue supportive care for alcohol withdrawals. Avoid hypotension. Prognosis guarded. Further recommendations follow. Past Medical History Past Medical History: Atrial Fibrillation, Heart Failure, COPD, GI Bleed, Hyperlipidemia, Hypertension, Renal Disease, Sleep Apnea/CPAP/BIPAP Additional Past Medical History / Comment(s): Hiatal hernia, cateracts, diverticulosis, CPAP use, Falls, History of Any Multi-Drug Resistant Organisms: None Reported Past Surgical History: Heart Catheterization Additional Past Surgical History / Comment(s): Bilateral cataract surgery, ganglion cyst removed, EGD/colonoscopy, cardioversion Past Anesthesia/Blood Transfusion Reactions: No Reported Reaction Past Psychological History: No Psychological Hx Reported Smoking Status: Former smoker Past Alcohol Use History: Daily Past Drug Use History: None Reported - Past Family History Mother Family Medical History: Cancer Father Family Medical History: Cancer, Myocardial Infarction ([place]) Medications and Allergies Home Medications Medication Instructions Recorded Confirmed Type Albuterol Inhaler [Ventolin Hfa 1 - 2 puff INHALATION RT-Q4H PRN 08/18/18 06/26/23 History Inhaler] Apixaban [Eliquis] 5 mg PO BID 08/18/18 06/26/23 History Ipratropium-Albuterol Nebulize 3 ml INHALATION RT-QID PRN 08/18/18 06/26/23 History [Duoneb 0.5 mg-3 mg/3 ml Soln] Metoprolol Tartrate 25 mg PO TID 08/18/18 06/26/23 History Montelukast [Singulair] 10 mg PO HS 08/18/18 06/26/23 History Atorvastatin [Lipitor] 80 mg PO HS 02/12/23 06/26/23 History Budesonide [Pulmicort] 0.5 mg INHALATION RT-BID 02/12/23 06/26/23 History Cyanocobalamin (Vitamin B-12) 1,000 mcg PO HS 02/12/23 06/26/23 History [Vitamin B-12] Famotidine [Pepcid] 20 mg PO DAILY 02/12/23 06/26/23 History Gabapentin [Neurontin] 100 mg PO BID@1300,2100 02/12/23 06/26/23 History Gabapentin [Neurontin] 200 mg PO DAILY@0800 02/12/23 06/26/23 History allopurinoL [Zyloprim] 100 mg PO HS 02/12/23 06/26/23 History Torsemide [Demadex] 40 mg PO DAILY 30 Days #30 tablet 02/16/23 06/26/23 Rx Ketoconazole 2% Shampoo [Nizoral] 1 applic TOPICAL Q2D 06/17/23 06/26/23 History Omalizumab [Xolair] 300 mg SQ Q28H 06/17/23 06/26/23 History Thiamine [Vitamin B-1] 100 mg PO DAILY@1200 06/17/23 06/26/23 History Cinacalcet [Sensipar] 30 mg PO DAILY #60 tab 06/19/23 06/26/23 Rx Allergies Allergy/AdvReac Type Severity Reaction Status Date / Time No Known Allergies Allergy Verified 06/17/23 11:41 Physical Exam Vitals: Vital Signs Temp Pulse Pulse Resp BP BP Pulse Ox 06/27/23 12:16 87 06/27/23 12:01 06/27/23 12:00 98.8 F 89 12 94 L 06/27/23 11:45 93 12 96/75 94 L 06/27/23 11:30 95 15 96/75 96 06/27/23 11:15 76 16 94 L 06/27/23 11:00 97 24 87 L 06/27/23 10:45 94 15 96 06/27/23 10:30 98 15 96 06/27/23 10:15 83 L 06/27/23 10:00 107 H 17 90 L 06/27/23 09:45 108 H 14 93/77 89 L 06/27/23 09:30 103 H 14 98/78 06/27/23 09:15 94 10 L 117/90 06/27/23 09:00 87 21 93/71 97 06/27/23 08:45 97 22 79/53 93 L 06/27/23 08:30 73 10 L 93 L 06/27/23 08:15 93 16 87/61 89 L 06/27/23 08:00 98.4 F 85 12 95/71 92 L 06/27/23 07:56 06/27/23 07:45 92 21 106/76 94 L 06/27/23 07:30 105 H 13 101/81 93 L 06/27/23 07:15 86 12 88/66 94 L 06/27/23 07:00 93 18 92/70 94 L 06/27/23 06:45 92 15 99/77 94 L 06/27/23 06:30 81 15 97/76 95 06/27/23 06:15 81 18 105/75 94 L 06/27/23 06:00 81 16 110/76 94 L 06/27/23 05:45 83 15 120/83 96 06/27/23 05:30 86 17 107/89 95 06/27/23 05:15 97 16 111/84 95 06/27/23 05:00 109 H 14 95/76 91 L 06/27/23 04:45 99 18 119/90 87 L 06/27/23 04:36 06/27/23 04:30 89 16 103/82 94 L 06/27/23 04:15 92 16 111/82 94 L 06/27/23 04:00 98.4 F 84 13 107/80 91 L 06/27/23 03:45 80 17 105/82 87 L 06/27/23 03:30 93 18 102/81 95 06/27/23 03:15 85 15 115/82 06/27/23 03:00 81 13 90/71 91 L 06/27/23 02:45 93 16 86/62 87 L 06/27/23 02:30 90 17 96/80 87 L 06/27/23 02:15 101 H 20 100/79 88 L 06/27/23 02:00 87 16 97/75 89 L 06/27/23 01:45 94 16 97/72 93 L 06/27/23 01:30 86 16 108/75 94 L 06/27/23 01:15 91 16 94/71 90 L 06/27/23 01:00 79 16 97/81 88 L 06/27/23 00:45 92 16 82/65 92 L 06/27/23 00:30 99 33 H 92/63 92 L 06/27/23 00:20 06/27/23 00:15 81 16 98/64 89 L 06/27/23 00:05 90 16 98/64 94 L 06/27/23 00:00 98.8 F 100 16 87/68 94 L 06/26/23 23:45 96 16 92/79 92 L 06/26/23 23:30 101 H 21 107/64 94 L 06/26/23 23:15 112 H 16 104/86 96 06/26/23 23:00 121 H 20 102/75 94 L 06/26/23 22:45 114 H 18 101/78 89 L 06/26/23 22:30 98.6 F 103 H 17 100 06/26/23 22:15 142 H 32 H 95 06/26/23 22:00 112 H 16 102/70 99 06/26/23 21:45 122 H 16 97 06/26/23 21:00 100 22 92/70 92 L 06/26/23 20:21 97 06/26/23 20:08 06/26/23 20:03 101 H 06/26/23 20:00 82 18 103/86 92 L 06/26/23 19:00 113 H 16 88/62 97 06/26/23 18:04 96.4 F L 06/26/23 18:00 77 13 71/49 92 L 06/26/23 17:42 06/26/23 17:35 89 06/26/23 17:17 89 06/26/23 17:11 06/26/23 17:03 96.4 F L 87 12 111/86 97 06/26/23 17:00 95.9 F L 88 108/69 94 L 06/26/23 16:50 108/69 06/26/23 16:10 90/73 97 06/26/23 16:00 92/67 100 06/26/23 15:50 92/67 100 06/26/23 15:10 76 25 H 87/59 86 L 06/26/23 15:09 06/26/23 15:00 80 16 83/67 79 L 06/26/23 14:50 165 H 8 L 94/76 84 L 06/26/23 14:40 90 22 100/80 94 L 06/26/23 14:20 84 24 95/80 100 06/26/23 14:00 95.9 F L 82 14 92/62 95 06/26/23 13:50 95.7 F L 82 20 99/72 97 06/26/23 13:40 73 24 100/77 100 06/26/23 13:30 95.4 F L 84 16 127/88 82 L 06/26/23 13:20 75 25 H 100/79 93 L 06/26/23 13:14 93.9 F L 72 23 98/54 06/26/23 13:03 81 06/26/23 12:52 81 FiO2 06/27/23 12:16 06/27/23 12:01 75 06/27/23 12:00 75 06/27/23 11:45 06/27/23 11:30 06/27/23 11:15 06/27/23 11:00 06/27/23 10:45 06/27/23 10:30 06/27/23 10:15 06/27/23 10:00 06/27/23 09:45 06/27/23 09:30 06/27/23 09:15 06/27/23 09:00 06/27/23 08:45 06/27/23 08:30 06/27/23 08:15 06/27/23 08:00 75 06/27/23 07:56 75 06/27/23 07:45 06/27/23 07:30 06/27/23 07:15 06/27/23 07:00 06/27/23 06:45 06/27/23 06:30 06/27/23 06:15 06/27/23 06:00 06/27/23 05:45 06/27/23 05:30 06/27/23 05:15 06/27/23 05:00 06/27/23 04:45 06/27/23 04:36 75 06/27/23 04:30 06/27/23 04:15 06/27/23 04:00 06/27/23 03:45 06/27/23 03:30 06/27/23 03:15 06/27/23 03:00 06/27/23 02:45 06/27/23 02:30 06/27/23 02:15 06/27/23 02:00 06/27/23 01:45 06/27/23 01:30 06/27/23 01:15 06/27/23 01:00 06/27/23 00:45 06/27/23 00:30 06/27/23 00:20 75 06/27/23 00:15 06/27/23 00:05 06/27/23 00:00 06/26/23 23:45 06/26/23 23:30 06/26/23 23:15 06/26/23 23:00 06/26/23 22:45 06/26/23 22:30 06/26/23 22:15 06/26/23 22:00 06/26/23 21:45 06/26/23 21:00 06/26/23 20:21 06/26/23 20:08 75 06/26/23 20:03 80 06/26/23 20:00 06/26/23 19:00 06/26/23 18:04 06/26/23 18:00 80 06/26/23 17:42 80 06/26/23 17:35 06/26/23 17:17 06/26/23 17:11 100 06/26/23 17:03 100 06/26/23 17:00 06/26/23 16:50 06/26/23 16:10 06/26/23 16:00 06/26/23 15:50 06/26/23 15:10 06/26/23 15:09 100 06/26/23 15:00 06/26/23 14:50 06/26/23 14:40 06/26/23 14:20 06/26/23 14:00 06/26/23 13:50 06/26/23 13:40 06/26/23 13:30 06/26/23 13:20 06/26/23 13:14 06/26/23 13:03 06/26/23 12:52 Intake and Output 06/26/23 06/27/23 06/27/23 22:59 06:59 14:59 Intake Total 722.115 289.869 570.008 Output Total 61 340 375 Balance 661.115 -50.131 195.008 Intake: IV 100 Sodium Chloride 0.9% 1, 100 000 ml @ 20 mls/hr IV . Q24H STA Rx#:[id number] Intake, IV Titration 722.115 289.869 470.008 Amount Dexmedetomidine/0.9% NaCl 55.872 131.978 (Pmx) 400 mcg In Empty Bag 1 bag @ 0.2 MCG/KG/HR 5.33 mls/hr IV .[id number] GERTRUDIS Rx#:[id number] Dextrose 5% in Water 100 618 ml @ 618 mls/hr IV .Q10M ONE with Amiodarone 150 mg Rx#:[id number] Furosemide 100 mg In 70 79.333 95.5 Sodium Chloride 0.9% 90 ml @ 10 MG/HR 10 mls/hr IV .Q10H GERTRUDIS Rx#: [id number] Norepinephrine 4 mg In 34.115 154.664 92.530 Sodium Chloride 0.9% 250 ml @ 0.03 MCG/KG/MIN 12. 184 mls/hr IV .[id number] GERTRUDIS Rx#:[id number] cefTRIAXone 2 gm In 50 Sodium Chloride 0.9% 50 ml @ 100 mls/hr IVPB Q24HR GERTRUDIS Rx#:[id number] metroNIDAZOLE-NS PMX 500 100 mg In Saline 1 100ml.bag @ 100 mls/hr IVPB Q8HR GERTRUDIS Rx#:[id number] Output: Urine 61 340 375 Other: Voiding Method Indwelling Catheter Indwelling Catheter Indwelling Catheter Weight 106.594 kg 128 kg ABP, PAP, CO, CI - Last 8 Hours Arterial Blood Pressure 128/70 Arterial Blood Pressure 98/58 Arterial Blood Pressure 107/66 Arterial Blood Pressure 134/72 Arterial Blood Pressure 121/69 Arterial Blood Pressure 119/71 Arterial Blood Pressure 118/71 Arterial Blood Pressure 87/56 Arterial Blood Pressure 78/52 Arterial Blood Pressure 102/61 Arterial Blood Pressure 102/65 Arterial Blood Pressure 99/61 Results 06/27/23 05:02 06/27/23 05:02 Cardiac Enzymes 06/26/23 06/26/23 06/26/23 Range/Units 12:45 12:45 19:46 AST 19 (17-59) U/L Troponin I 0.019 0.025 (0.000-0.034) ng/mL 06/26/23 06/27/23 06/27/23 Range/Units 22:28 05:02 09:30 AST 19 16 L (17-59) U/L Troponin I 0.023 (0.000-0.034) ng/mL Coagulation 06/26/23 Range/Units 12:45 PT 11.5 (10.0-12.5) sec APTT 29.3 (22.0-30.0) sec CBC 06/26/23 06/27/23 Range/Units 12:45 05:02 WBC 13.1 H 15.7 H (3.8-10.6) k/uL RBC 4.25 L 4.49 (4.30-5.90) m/uL Hgb 14.5 14.7 (13.0-17.5) gm/dL Hct 46.6 48.4 (39.0-53.0) % Plt Count 241 272 (150-450) k/uL Comprehensive Metabolic Panel 06/26/23 06/27/2306/27/23 Range/Units 12:45 05:02 09:30 Sodium 138 136 L (137-145) mmol/L Potassium 5.2 H 5.9 H (3.5-5.1) mmol/L Chloride 96 L 97 L (98-107) mmol/L Carbon Dioxide 28 25 (22-30) mmol/L BUN 99 H 107 H* (9-20) mg/dL Creatinine 5.25 H 5.17 H (0.66-1.25) mg/dL Glucose 103 H 108 H (74-99) mg/dL Calcium 11.5 H 10.9 H (8.4-10.2) mg/dL Unconjugated Bilirubin 0.2 (0.0-1.1) mg/dL AST 19 19 16 L (17-59) U/L ALT 22 19 17 (4-49) U/L Alkaline Phosphatase 114 104 105 (38-126) U/L Total Protein 6.9 6.6 6.2 L (6.3-8.2) g/dL Albumin 3.7 3.5 3.3 L (3.5-5.0) g/dL Current Medications Generic Name Dose Route Start Last Admin Trade Name Freq PRN Reason Stop Dose Admin Acetaminophen 650 mg 06/26/23 15:21 Acetaminophen Tab 325 Mg Tab PO Q4HR PRN Fever and/or Mild Pain Albuterol Sulfate 2.5 mg 06/26/23 15:43 Albuterol Nebulized 2.5 Mg/3 Ml INHALATION RT-Q4H PRN Shortness Of Breath Albuterol/Ipratropium 3 ml 06/26/23 16:00 06/27/23 12:00 Ipratropium-Albuterol 3 Ml Neb INHALATION 3 ml RT-QID GERTRUDIS Administration Apixaban 5 mg 06/27/23 11:15 Apixaban 5 Mg Tab PO BID GERTRUDIS Protocol Atorvastatin Calcium 80 mg 06/26/23 21:00 06/26/23 21:42 Atorvastatin 80 Mg Tab PO Not Given HS GERTRUDIS Budesonide 0.5 mg 06/26/23 20:00 06/27/23 08:50 Budesonide 0.5 Mg/2 Ml Nebu INHALATION Not Given RT-BID GERTRUDIS Cinacalcet 30 mg 06/27/23 09:00 06/27/23 09:52 Cinacalcet 30 Mg Tab PO Not Given DAILY GERTRUDIS Famotidine 20 mg 06/27/23 09:00 06/27/23 08:03 Famotidine 20 Mg/2 Ml Vial IV 20 mg DAILY GERTRUDIS Administration Furosemide 100 mg/ Sodium 100 mls @ 10 mls/hr 06/26/23 16:30 06/27/23 09:43 Chloride IV 10 mg/hr .Q10H GERTRUDIS 10 mls/hr Administration 10 MG/HR Norepinephrine Bitartrate 4 mg 254 mls @ 12.184 mls/hr 06/26/23 18:15 06/27/23 10:41 / Sodium Chloride IV 0.02 mcg/kg/min .[id number] GERTRUDIS 8.122 mls/hr Titration Protocol 0.03 MCG/KG/MIN Amiodarone HCl 450 mg/ 250 mls @ 16.667 mls/hr 06/27/23 04:00 06/27/23 04:48 Dextrose/Water IV 06/27/23 21:59 0.5 mg/min .Q15H GERTRUDIS 16.667 mls/hr Administration Protocol 0.5 MG/MIN Dexmedetomidine HCl 400 mcg/ 100 mls @ 5.33 mls/hr 06/26/23 22:15 06/27/23 12:29 IV Solution IV 1.1 mcg/kg/hr .[id number] GERTRUDIS 29.313 mls/hr Titration Protocol 0.2 MCG/KG/HR Ceftriaxone Sodium 2 gm/ 50 mls @ 100 mls/hr 06/27/23 09:15 06/27/23 10:28 Sodium Chloride IVPB 100 mls/hr Q24HR GERTRUDIS Administration Protocol Metronidazole 500 mg/ IV 100 mls @ 100 mls/hr 06/27/23 09:15 06/27/23 10:26 Solution IVPB 100 mls/hr Q8HR GERTRUDIS Administration Protocol Lorazepam 1 mg 06/27/23 10:58 06/27/23 11:04 Lorazepam 2 Mg/Ml Inj IV 1 mg Q4HR PRN Administration Anxiety Methylprednisolone Sodium Succinate 60 mg 06/27/23 00:00 06/27/23 08:04 Methylprednisolone Sod Succi 125 Mg/2 Ml Vial IV 60 mg Q8HR GERTRUDIS Administration Montelukast Sodium 10 mg 06/26/23 21:00 06/26/23 21:42 Montelukast 10 Mg Tab PO Not Given HS GERTRUDIS Naloxone HCl 0.2 mg 06/26/23 15:21 Naloxone 0.4 Mg/Ml 1 Ml Vial IV Q2M PRN Opioid Reversal Ondansetron HCl 4 mg 06/26/23 15:21 Ondansetron 4 Mg/2 Ml Vial IVP Q8HR PRN Nausea And Vomiting Thiamine HCl 100 mg 06/27/23 09:00 06/27/23 09:52 Thiamine 100 Mg/Ml 2 Ml Vial IVP Not Given DAILY GERTRUDIS Intake and Output 06/26/23 06/27/23 06/27/23 22:59 06:59 14:59 Intake Total 722.115 289.869 570.008 Output Total 61 340 375 Balance 661.115 -50.131 195.008 Intake: IV 100 Sodium Chloride 0.9% 1, 100 000 ml @ 20 mls/hr IV . Q24H STA Rx#:[id number] Intake, IV Titration 722.115 289.869 470.008 Amount Dexmedetomidine/0.9% NaCl 55.872 131.978 (Pmx) 400 mcg In Empty Bag 1 bag @ 0.2 MCG/KG/HR 5.33 mls/hr IV .[id number] GERTRUDIS Rx#:[id number] Dextrose 5% in Water 100 618 ml @ 618 mls/hr IV .Q10M ONE with Amiodarone 150 mg Rx#:[id number] Furosemide 100 mg In 70 79.333 95.5 Sodium Chloride 0.9% 90 ml @ 10 MG/HR 10 mls/hr IV .Q10H GERTRUDIS Rx#: [id number] Norepinephrine 4 mg In 34.115 154.664 92.530 Sodium Chloride 0.9% 250 ml @ 0.03 MCG/KG/MIN 12. 184 mls/hr IV .[id number] GERTRUDIS Rx#:[id number] cefTRIAXone 2 gm In 50 Sodium Chloride 0.9% 50 ml @ 100 mls/hr IVPB Q24HR GERTRUDIS Rx#:[id number] metroNIDAZOLE-NS PMX 500 100 mg In Saline 1 100ml.bag @ 100 mls/hr IVPB Q8HR GERTRUDSI Rx#:[id number] Output: Urine 61 340 375 Other: Voiding Method Indwelling Catheter Indwelling Catheter Indwelling Catheter Weight 106.594 kg 128 kg 06/27/23 05:02 06/27/23 05:02
--- NOTE | 2023-06-27 14:58 | P.CNNES ---
History of Present Illness Consult date: 06/27/23 Requesting physician: Hilario Sawnn Reason for Consult: Unequal pupils History of Present Illness: Patient is a 73-year-old male came to the hospital by ambulance yesterday at 12:23 PM for altered mental status. Patient's was present, who provided with a history. She mentions that patient woke up one day prior to arrival with difficulty breathing, sleeping a lot, and confusion. She also noticed that he was having trouble talking, and was slightly slurring, but no other focal symptoms she has noticed. The confusion and excessive sleeping progressively got worse and yesterday on the day of admission he became worse therefore she called the ambulance. He was first taken to [facility], where he was diagnosed with acute respiratory failure, right middle lobe pneumonia, COPD with acute exacerbation and acute on chronic renal insufficiency. He was subsequently transferred to [facility]. EMS flow sheet not available in the chart. Vital signs on arrival blood pressure 83/69, pulse rate 74 temperature 94.3 axillary. The temperature since has been normalized. The blood pressure has been running low off and on. Blood test shows W BC 13.1, hemoglobin 14.5, with elevated MCV 109.7, platelets 241 PT/PTT normal, we ABG with pH of 7.01, pCO2 120, HCO3 30. Sodium is normal potassium 5.2, BUN 99, creatinine 5.25. Calcium is 11.5, phosphorus 8.8. Magnesium 2.6. Hepatic panel is normal, TSH is elevated 4.77, with free T4 low 0.72, UA is negative. Patient's pCO2 is improving and most recent is 62. EKG shows atrial fibrillation. Chest x-ray on arrival showed low lung volumes with a generalized hazy appearance which could represent atelectasis versus pulmonary edema, correlate with serum BNP. Most recent chest x-ray showed cardiomegaly, pulmonary vascular congestion's and bilateral pleural effusions. Correlate with BNP for congestive heart failure. Patient's mentioned that he was admitted to the hospital for 3 days on 06/19/2023 for high calcium, which was felt to be related to hyperparathyroidism. Patient has smoked 1 pack per day for 40 years, quit 6 years ago. He drinks 3 shots of vodka every day for long time. No marijuana use. Denies diabetes. At present patient is sedated on Precedex 0.8 because being very restless, agitated, trying to get out of the bed. He was also given Ativan 1 mg at 11 AM. He was awake, he was moving all 4 extremities. Patient's chest x-ray from [facility] revealed small amount of fluid in the minor fissure, questionable right basilar infiltrate, advanced cardiomegaly. No brain imaging was done. Review of Systems Review of systems as per patient's report Constitutional: Reports weight loss, Denies chills, Denies fever Eyes: denies blurred vision, denies diplopia, denies pain Ears: bilateral: decreased hearing (mild), deny: ear discharge Ears, nose, mouth and throat: Reports epistaxis, Denies headache, Denies sore throat Cardiovascular: Reports shortness of breath, Denies chest pain Respiratory: Denies cough, Denies excessive sputum Gastrointestinal: Denies abdominal pain, Denies diarrhea, Denies nausea, Denies vomiting Genitourinary: Reports incontinence (sometimes), Reports urinary frequency Musculoskeletal: Denies low back pain, Denies myalgias, Denies neck pain Integumentary: Denies pruritus, Denies rash Neurological: Reports as per HPI, Reports change in speech, Reports confusion Psychiatric: Denies anxiety, Denies depression Endocrine: Reports fatigue, Reports weight change Hematologic/Lymphatic: Reports easy bleeding, Reports easy bruising Past Medical History Past Medical History: Atrial Fibrillation, Heart Failure, COPD, GI Bleed, Hyperlipidemia, Hypertension, Renal Disease, Sleep Apnea/CPAP/BIPAP Additional Past Medical History / Comment(s): Hiatal hernia, cateracts, diverticulosis, CPAP use, Falls, History of Any Multi-Drug Resistant Organisms: None Reported Past Surgical History: Heart Catheterization Additional Past Surgical History / Comment(s): Bilateral cataract surgery, ganglion cyst removed, EGD/colonoscopy, cardioversion Past Anesthesia/Blood Transfusion Reactions: No Reported Reaction Past Psychological History: No Psychological Hx Reported Smoking Status: Former smoker Past Alcohol Use History: Daily Past Drug Use History: None Reported - Past Family History Mother Family Medical History: Cancer Father Family Medical History: Cancer, Myocardial Infarction (ME) Medications and Allergies Home Medications Medication Instructions Recorded Confirmed Type Albuterol Inhaler [Ventolin Hfa 1 - 2 puff INHALATION RT-Q4H PRN 08/18/18 06/26/23 History Inhaler] Apixaban [Eliquis] 5 mg PO BID 08/18/18 06/26/23 History Ipratropium-Albuterol Nebulize 3 ml INHALATION RT-QID PRN 08/18/18 06/26/23 History [Duoneb 0.5 mg-3 mg/3 ml Soln] Metoprolol Tartrate 25 mg PO TID 08/18/18 06/26/23 History Montelukast [Singulair] 10 mg PO HS 08/18/18 06/26/23 History Atorvastatin [Lipitor] 80 mg PO HS 02/12/23 06/26/23 History Budesonide [Pulmicort] 0.5 mg INHALATION RT-BID 02/12/23 06/26/23 History Cyanocobalamin (Vitamin B-12) 1,000 mcg PO HS 02/12/23 06/26/23 History [Vitamin B-12] Famotidine [Pepcid] 20 mg PO DAILY 02/12/23 06/26/23 History Gabapentin [Neurontin] 100 mg PO BID@1300,2100 02/12/23 06/26/23 History Gabapentin [Neurontin] 200 mg PO DAILY@0800 02/12/23 06/26/23 History allopurinoL [Zyloprim] 100 mg PO HS 02/12/23 06/26/23 History Torsemide [Demadex] 40 mg PO DAILY 30 Days #30 tablet 02/16/23 06/26/23 Rx Ketoconazole 2% Shampoo [Nizoral] 1 applic TOPICAL Q2D 06/17/23 06/26/23 History Omalizumab [Xolair] 300 mg SQ Q28H 06/17/23 06/26/23 History Thiamine [Vitamin B-1] 100 mg PO DAILY@1200 06/17/23 06/26/23 History Cinacalcet [Sensipar] 30 mg PO DAILY #60 tab 06/19/23 06/26/23 Rx Allergies Allergy/AdvReac Type Severity Reaction Status Date / Time No Known Allergies Allergy Verified 06/17/23 11:41 Physical Examination - Vital Signs Vital Signs: Vital Signs Temp Pulse Pulse Resp BP BP Pulse Ox 06/27/23 12:16 87 06/27/23 12:01 06/27/23 12:00 98.8 F 89 12 94 L 06/27/23 11:45 93 12 96/75 94 L 06/27/23 11:30 95 15 96/75 96 06/27/23 11:15 76 16 94 L 06/27/23 11:00 97 24 87 L 06/27/23 10:45 94 15 96 06/27/23 10:30 98 15 96 06/27/23 10:15 83 L 06/27/23 10:00 107 H 17 90 L 06/27/23 09:45 108 H 14 93/77 89 L 06/27/23 09:30 103 H 14 98/78 06/27/23 09:15 94 10 L 117/90 06/27/23 09:00 87 21 93/71 97 06/27/23 08:45 97 22 79/53 93 L 06/27/23 08:30 73 10 L 93 L 06/27/23 08:15 93 16 87/61 89 L 06/27/23 08:00 98.4 F 85 12 95/71 92 L 06/27/23 07:56 06/27/23 07:45 92 21 106/76 94 L 06/27/23 07:30 105 H 13 101/81 93 L 06/27/23 07:15 86 12 88/66 94 L 06/27/23 07:00 93 18 92/70 94 L 06/27/23 06:45 92 15 99/77 94 L 06/27/23 06:30 81 15 97/76 95 06/27/23 06:15 81 18 105/75 94 L 06/27/23 06:00 81 16 110/76 94 L 06/27/23 05:45 83 15 120/83 96 06/27/23 05:30 86 17 107/89 95 06/27/23 05:15 97 16 111/84 95 06/27/23 05:00 109 H 14 95/76 91 L 06/27/23 04:45 99 18 119/90 87 L 06/27/23 04:36 06/27/23 04:30 89 16 103/82 94 L 06/27/23 04:15 92 16 111/82 94 L 06/27/23 04:00 98.4 F 84 13 107/80 91 L 06/27/23 03:45 80 17 105/82 87 L 06/27/23 03:30 93 18 102/81 95 12/16/23 03:15 85 15 115/82 06/27/23 03:00 81 13 90/71 91 L 06/27/23 02:45 93 16 86/62 87 L 06/27/23 02:30 90 17 96/80 87 L 06/27/23 02:15 101 H 20 100/79 88 L 06/27/23 02:00 87 16 97/75 89 L 06/27/23 01:45 94 16 97/72 93 L 06/27/23 01:30 86 16 108/75 94 L 06/27/23 01:15 91 16 94/71 90 L 06/27/23 01:00 79 16 97/81 88 L 06/27/23 00:45 92 16 82/65 92 L 06/27/23 00:30 99 33 H 92/63 92 L 06/27/23 00:20 06/27/23 00:15 81 16 98/64 89 L 06/27/23 00:05 90 16 98/64 94 L 06/27/23 00:00 98.8 F 100 16 87/68 94 L 06/26/23 23:45 96 16 92/79 92 L 06/26/23 23:30 101 H 21 107/64 94 L 06/26/23 23:15 112 H 16 104/86 96 06/26/23 23:00 121 H 20 102/75 94 L 06/26/23 22:45 114 H 18 101/78 89 L 06/26/23 22:30 98.6 F 103 H 17 100 06/26/23 22:15 142 H 32 H 95 06/26/23 22:00 112 H 16 102/70 99 06/26/23 21:45 122 H 16 97 06/26/23 21:00 100 22 92/70 92 L 06/26/23 20:21 97 06/26/23 20:08 06/26/23 20:03 101 H 06/26/23 20:00 82 18 103/86 92 L 06/26/23 19:00 113 H 16 88/62 97 06/26/23 18:04 96.4 F L 06/26/23 18:00 77 13 71/49 92 L 06/26/23 17:42 06/26/23 17:35 89 06/26/23 17:17 89 06/26/23 17:11 06/26/23 17:03 96.4 F L 87 12 111/86 97 06/26/23 17:00 95.9 F L 88 108/69 94 L 06/26/23 16:50 108/69 06/26/23 16:10 90/73 97 06/26/23 16:00 92/67 100 06/26/23 15:50 92/67 100 06/26/23 15:10 76 25 H 87/59 86 L 06/26/23 15:09 06/26/23 15:00 80 16 83/67 79 L 06/26/23 14:50 165 H 8 L 94/76 84 L 06/26/23 14:40 90 22 100/80 94 L 06/26/23 14:20 84 24 95/80 100 06/26/23 14:00 95.9 F L 82 14 92/62 95 06/26/23 13:50 95.7 F L 82 20 99/72 97 06/26/23 13:40 73 24 100/77 100 06/26/23 13:30 95.4 F L 84 16 127/88 82 L 06/26/23 13:20 75 25 H 100/79 93 L 06/26/23 13:14 93.9 F L 72 23 98/54 06/26/23 13:03 81 06/26/23 12:52 81 FiO2 06/27/23 12:16 06/27/23 12:01 75 06/27/23 12:00 75 06/27/23 11:45 06/27/23 11:30 06/27/23 11:15 06/27/23 11:00 06/27/23 10:45 06/27/23 10:30 06/27/23 10:15 06/27/23 10:00 06/27/23 09:45 06/27/23 09:30 06/27/23 09:15 06/27/23 09:00 06/27/23 08:45 06/27/23 08:30 06/27/23 08:15 06/27/23 08:00 75 06/27/23 07:56 75 06/27/23 07:45 06/27/23 07:30 06/27/23 07:15 06/27/23 07:00 06/27/23 06:45 06/27/23 06:30 06/27/23 06:15 06/27/23 06:00 06/27/23 05:45 06/27/23 05:30 06/27/23 05:15 06/27/23 05:00 06/27/23 04:45 06/27/23 04:36 75 06/27/23 04:30 06/27/23 04:15 06/27/23 04:00 06/27/23 03:45 06/27/23 03:30 06/27/23 03:15 06/27/23 03:00 06/27/23 02:45 06/27/23 02:30 06/27/23 02:15 06/27/23 02:00 06/27/23 01:45 06/27/23 01:30 06/27/23 01:15 06/27/23 01:00 06/27/23 00:45 06/27/23 00:30 06/27/23 00:20 75 06/27/23 00:15 06/27/23 00:05 06/27/23 00:00 06/26/23 23:45 06/26/23 23:30 06/26/23 23:15 06/26/23 23:00 06/26/23 22:45 06/26/23 22:30 06/26/23 22:15 06/26/23 22:00 06/26/23 21:45 06/26/23 21:00 06/26/23 20:21 06/26/23 20:08 75 06/26/23 20:03 80 06/26/23 20:00 06/26/23 19:00 06/26/23 18:04 06/26/23 18:00 80 06/26/23 17:42 80 06/26/23 17:35 06/26/23 17:17 06/26/23 17:11 100 06/26/23 17:03 100 06/26/23 17:00 06/26/23 16:50 06/26/23 16:10 06/26/23 16:00 06/26/23 15:50 06/26/23 15:10 06/26/23 15:09 100 06/26/23 15:00 06/26/23 14:50 06/26/23 14:40 06/26/23 14:20 06/26/23 14:00 06/26/23 13:50 06/26/23 13:40 06/26/23 13:30 06/26/23 13:20 06/26/23 13:14 06/26/23 13:03 06/26/23 12:52 Intake and Output 06/26/23 06/27/23 06/27/23 22:59 06:59 14:59 Intake Total 722.115 289.869 570.008 Output Total 61 340 375 Balance 661.115 -50.131 195.008 Intake: IV 100 Sodium Chloride 0.9% 1, 100 000 ml @ 20 mls/hr IV . Q24H STA Rx#:[id number] Intake, IV Titration 722.115 289.869 470.008 Amount Dexmedetomidine/0.9% NaCl 55.872 131.978 (Pmx) 400 mcg In Empty Bag 1 bag @ 0.2 MCG/KG/HR 5.33 mls/hr IV .[id number] GERTRUDIS Rx#:[id number] Dextrose 5% in Water 100 618 ml @ 618 mls/hr IV .Q10M ONE with Amiodarone 150 mg Rx#:[id number] Furosemide 100 mg In 70 79.333 95.5 Sodium Chloride 0.9% 90 ml @ 10 MG/HR 10 mls/hr IV .Q10H GERTRUDIS Rx#: [id number] Norepinephrine 4 mg In 34.115 154.664 92.530 Sodium Chloride 0.9% 250 ml @ 0.03 MCG/KG/MIN 12. 184 mls/hr IV .[id number] GERTRUDIS Rx#:[id number] cefTRIAXone 2 gm In 50 Sodium Chloride 0.9% 50 ml @ 100 mls/hr IVPB Q24HR GERTRUDIS Rx#:[id number] metroNIDAZOLE-NS PMX 500 100 mg In Saline 1 100ml.bag @ 100 mls/hr IVPB Q8HR GERTRUDIS Rx#:[id number] Output: Urine 61 340 375 Other: Voiding Method Indwelling Catheter Indwelling Catheter Indwelling Catheter Weight 106.594 kg 128 kg ABP, PAP, CO, CI - Last 8 Hours Arterial Blood Pressure 128/70 Arterial Blood Pressure 98/58 Arterial Blood Pressure 107/66 Arterial Blood Pressure 134/72 Arterial Blood Pressure 121/69 Arterial Blood Pressure 119/71 Arterial Blood Pressure 118/71 Arterial Blood Pressure 87/56 Arterial Blood Pressure 78/52 Arterial Blood Pressure 102/61 Arterial Blood Pressure 102/65 Arterial Blood Pressure 99/61 Patient is an elderly male,, who is sedated, just received Ativan. He has BiPAP on. Patient is sedated with BiPAP. Speech and language functions cannot be assessed. Attention, concentration and fund of knowledge is limited due to sedation. On cranial nerve examination, pupils are small, about 2-3 mm, equal, round and reacting to light. Visual dumont cannot be tested. He has BiPAP on. Lower cranial nerves cannot be tested. Per , his hearing is slightly decreased On muscle strength testing, patient not cooperating with the examination because of sedation. Deep tendon reflexes are very hypoactive and plantars are flat bilaterally. Sensory to touch is not responding. To the painful stimuli, patient had very minimal response. He just received Ativan 1 mg. Cerebellar function cannot be assessed. Tone and bulk of muscles normal. Gait deferred.. On general examination, there is no carotid bruit or murmur, S1-S2 audible. Chest is clear on consultation. Abdomen is soft nontender. No organomegaly, bowel sounds present. Peripheral pulses are present. Mild peripheral edema. Patient has multiple bruises from blood draws. Results - Laboratory Findings CBC and BMP: 06/27/23 05:02 06/27/23 15:15 Abnormal Lab Findings: Abnormal Labs 06/26/23 06/26/23 06/26/23 12:45 12:45 12:45 WBC 13.1 H RBC 4.25 L MCV 109.7 H MCHC Neutrophils # 11.0 H Lymphocytes # 0.9 L Macrocytosis Marked A ABG pH ABG pCO2 ABG pO2 ABG HCO3 ABG Total CO2 VBG pH VBG pCO2 VBG HCO3 Sodium Potassium 5.2 H Chloride 96 L BUN 99 H Creatinine 5.25 H Glucose 103 H Calcium 11.5 H Phosphorus 8.8 H Magnesium 2.6 H Delta Bilirubin AST Total Protein Albumin TSH 4.770 H Free T4 0.72 L Urine Protein 2+ H Ur Leukocyte Esterase Trace H Urine WBC 6 H Urine Bacteria Rare H Hyaline Casts 15 H Urine Mucus Rare H Urine Yeast (Budding) Few H 06/26/23 06/26/23 06/26/23 13:06 17:15 19:38 WBC RBC MCV MCHC Neutrophils # Lymphocytes # Macrocytosis ABG pH 7.09 L* 7.14 L* ABG pCO2 92 H* 79 H* ABG pO2 77 L ABG HCO3 28 H 27 H ABG Total CO2 29 H VBG pH 7.01 L* VBG pCO2 120 H* VBG HCO3 30 H Sodium Potassium Chloride BUN Creatinine Glucose Calcium Phosphorus Magnesium Delta Bilirubin AST Total Protein Albumin TSH Free T4 Urine Protein Ur Leukocyte Esterase Urine WBC Urine Bacteria Hyaline Casts Urine Mucus Urine Yeast (Budding) 06/27/23 06/27/23 06/27/23 05:02 05:02 09:30 WBC 15.7 H RBC MCV 107.9 H MCHC 30.3 L Neutrophils # 14.1 H Lymphocytes # 0.7 L Macrocytosis Marked A ABG pH ABG pCO2 ABG pO2 ABG HCO3 ABG Total CO2 VBG pH VBG pCO2 VBG HCO3 Sodium 136 L Potassium 5.9 H Chloride 97 L BUN 107 H* Creatinine 5.17 H Glucose 108 H Calcium 10.9 H Phosphorus 8.0 H Magnesium 2.4 H Delta Bilirubin 0.4 H AST 16 L Total Protein 6.2 L Albumin 3.3 L TSH Free T4 Urine Protein Ur Leukocyte Esterase Urine WBC Urine Bacteria Hyaline Casts Urine Mucus Urine Yeast (Budding) 06/27/23 09:33 WBC RBC MCV MCHC Neutrophils # Lymphocytes # Macrocytosis ABG pH 7.21 L ABG pCO2 62 H ABG pO2 79 L ABG HCO3 ABG Total CO2 27 H VBG pH VBG pCO2 VBG HCO3 Sodium Potassium Chloride BUN Creatinine Glucose Calcium Phosphorus Magnesium Delta Bilirubin AST Total Protein Albumin TSH Free T4 Urine Protein Ur Leukocyte Esterase Urine WBC Urine Bacteria Hyaline Casts Urine Mucus Urine Yeast (Budding) Assessment and Plan Assessment: * Transient unequal pupil, likely due to either hypercapnia, or related to medication like Atrovent. Pupils equal now. Limited examination nonfocal. * Acute metabolic encephalopathy, reasons multifactorial as mentioned below. * History of alcoholism, watch for alcohol withdrawal. * Acute COPD exacerbation * Acute on chronic diastolic CHF with preserved EF * Atrial fibrillation with rapid ventricular rate * Moderate to severe aortic stenosis * Hypotension * Acute hypercapnic respiratory failure * Metabolic acidosis * Acute on chronic renal failure * Bilateral pleural effusions * Hypothyroidism * Possible cholecystitis * Alcoholism * Macrocytosis * X tobacco use Plan: * Patient's pupils are now equal, although small, round and reacting. Patient's limited examination is nonfocal. * Patient is macrocytosis, likely due to history of alcoholism. However we will check B12, folate * Watch for delirium tremens. Start folate, multivitamins and thiamine. * Continue Eliquis 5 mg twice a day for stroke prevention related to atrial fibrillation. * Patient's complained of patient having slight dysarthria along with confusion prior to arrival. This is likely due to metabolic encephalopathy. * We will check CT head, and carotid Doppler. * Treatment of other medical/surgical conditions as per IM and other specialties. * Neurology will follow clinically. * Thank you for the consult.
[2023-06-27 15:38] LABS: Anion Gap 13 mmol/L; Carbon Dioxide 22 mmol/L (22-30); Chloride 101 mmol/L (98-107); Potassium 5.3 mmol/L (3.5-5.1); Sodium 136 mmol/L (137-145)
--- NOTE | 2023-06-27 15:52 | CT ---
EXAMINATION TYPE: CT brain wo con DATE OF EXAM: 06/27/2023 COMPARISON: None HISTORY: AMS, Dysarthria. CT DLP: 1314.4 mGycm Automated exposure control for dose reduction was used. FINDINGS: The ventricles, basal cisterns and sulci over convexities are moderately enlarged consistent with mod erate atrophy. There is no mass effect or shift of the midline structures. No abnormal density is seen throughout the brain parenchyma and there is no acute intra or extra-axia l hemorrhage. Posterior fossa including the brainstem, fourth ventricle and cerebellar pontine angles are grossly n ormal. Intraorbital contents appear normal and symmetric. Visualized paranasal sinuses and mastoid air cells are well aerated. IMPRESSION: 1. Age-appropriate atrophy. 2. No acute bleed or mass effect. IMPRESSION:
[2023-06-27] MEDS ORDERED: ENOXAPARIN 100 MG/ML SYRINGE SQ SCH (17:30)
--- NOTE | 2023-06-27 17:38 | US ---
EXAMINATION TYPE: US carotid duplex BILAT DATE OF EXAM: 06/27/2023 COMPARISON: NONE CLINICAL INDICATION: Male, 73 years old with history of Dysarthria, AMS; pt in ICU, sleeping, st ates no h/o stroke, AMS TECHNIQUE: Carotid duplex ultrasound examination. Indirect Doppler criteria was utilized. FINDINGS: EXAM MEASUREMENTS: RIGHT: Peak Systolic Velocity (PSV) cm/sec ----- Right CCA: 31.0 ----- Right ICA: 53.3 ----- Right ECA: 62.3 ICA/CCA ratio: 1.7 RIGHT: End Diastole cm/sec ----- Right CCA: 6.3 ----- Right ICA: 14.7 ----- Right ECA: 6.5 LEFT: Peak Systolic Velocity (PSV) cm/sec ----- Left CCA: 38.7 ----- Left ICA: 47.4 ----- Left ECA: 42.2 ICA/CCA ratio: 1.2 LEFT: End Diastole cm/sec ----- Left CCA: 5.2 ----- Left ICA: 12.9 ----- Left ECA: 2.6 VERTEBRALS (direction of flow): Right Vertebral: Antegrade Left Vertebral: Antegrade Rhythm: Arrhythmia SENIOR SYSTEMS PROGRAMMER NOTES: helped hold patients head during exam, large habitus and he leans to the righ t. Heterogeneous plaque seen bilaterally with no significant stenosis seen. IMPRESSION: Minimal plaque formation in the carotid bulbs and proximal internal carotid arteries with no hemodyna mically significant stenosis based on peak systolic velocities and ratios. Criteria for Assigning % of Stenosis / Diameter reduction (Estimation based on the indirect measurements of the internal carotid artery velocities (ICA PSV). 1. Normal (no stenosis)=ICA PSV < 125 cm/s: ratio < 2.0: ICA EDV<40 cm/s. 2. Less than 50% stenosis=ICA PSV < 125 cm/s: ratio < 2.0: ICA EDV<40 cm/s. 3. 50 to 69% stenosis=ICA PSV of 125 to 230 cm/s: ration 2.0 ? 4.0: ICA EDV 40-100 cm/s. 4. Greater than 70% stenosis to near occlusion= ICA PSV > 230 cm/s: ratio > 4.0: ICA EDV > 100 cm/s. 5. Near occlusion= ICA PSV velocities may be low or undetectable: variable ratio and ICA EDV. 6. Total occlusion=unable to detect flow.
[2023-06-27] MEDS: MONTELUKAST 10 MG TAB PO SCH (19:31)
[2023-06-27] MEDS: ATORVASTATIN 80 MG TAB PO SCH (19:31)
[2023-06-28] MEDS: methylPREDNISolone SOD SUCCI 125 MG/2 ML VIAL IV SCH ×3 (00:53→15:33)
[2023-06-28] MEDS: metroNIDAZOLE-NS PMX 500 MG in SALINE 1 100ML.BAG IVPB SCH ×3 (01:50→15:33)
[2023-06-28] MEDS: FUROSEMIDE 100 MG in SODIUM CHLORIDE 0.9% 90 ML IV SCH ×3 (03:20→22:49)
[2023-06-28 03:40] LABS: Basophils % (A) 0 %; Eosinophils # (A) 0.1 k/uL (0-0.7); Eosinophils % (A) 1 %; HCT 48.3 % (39.0-53.0); HGB 15.4 gm/dL (13.0-17.5); Hypochromasia Slight; Lymphocytes # (A) 0.5 k/uL (1.0-4.8); Lymphocytes % (A) 4 %; MCH 33.1 pg (25.0-35.0); MCHC 31.9 g/dL (31.0-37.0); Macrocytosis Slight; Mean Platelet Volume 8.9; Monocytes # (A) 0.7 k/uL (0-1.0); Monocytes % (A) 5 %; Neutrophils # (A) 12.4 k/uL (1.3-7.7); Neutrophils % (A) 90 %; Platelet Count 226 k/uL (150-450); RBC 4.64 m/uL (4.30-5.90); RDW 14.4 % (11.5-15.5); WBC 13.9 k/uL (3.8-10.6)
[2023-06-28 03:54] LABS: ALT 16 U/L (4-49); AST 16 U/L (17-59); African American GFR (CKD) 14 (>60 ml/min/1.73 sqM); Albumin 3.2 g/dL (3.5-5.0); Alkaline Phosphatase 102 U/L (38-126); Anion Gap 16 mmol/L; Calcium 10.1 mg/dL (8.4-10.2); Carbon Dioxide 22 mmol/L (22-30); Chloride 100 mmol/L (98-107); Glucose 168 mg/dL (74-99); Magnesium 2.1 mg/dL (1.6-2.3); Non-African American GFR(CKD) 12 (>60 ml/min/1.73 sqM); Phosphorus 5.8 mg/dL (2.5-4.5); Potassium 4.7 mmol/L (3.5-5.1); Sodium 138 mmol/L (137-145); Total Bilirubin 0.5 mg/dL (0.2-1.3); Total Protein 6.3 g/dL (6.3-8.2)
[2023-06-28 03:57] LABS: Blood Urea Nitrogen 111 mg/dL (9-20)
[2023-06-28] MEDS ORDERED: METOPROLOL TARTRATE 5 MG/5 ML VIAL IVP STA (04:43)
[2023-06-28 06:43] LABS: ABG HCO3 27 mmol/L (21-25); ABG Oxygen Saturation 94.8 % (94-97); ABG PCO2 50 mmHg (35-45); ABG PH 7.34 (7.35-7.45); ABG PO2 76 mmHg (83-108); ABG TCO2 28 mmol/L (19-24)
[2023-06-28] MEDS: BUDESONIDE 0.5 MG/2 ML NEBU INHALATION SCH ×2 (07:36→20:13)
[2023-06-28] MEDS: IPRATROPIUM-ALBUTEROL 3 ML NEB INHALATION SCH ×4 (07:36→20:13)
--- NOTE | 2023-06-28 07:38 | P.PN ---
Subjective This is a pleasant 73 years old male with multiple medical problems including Atrial Fibrillation, Heart Failure, COPD, GI Bleed, Hyperlipidemia, Hypertension, chronic kidney disease/CPAP/BIPAP,Hiatal hernia, cateracts, d iverticulosis, CPAP use, Falls, Patient presents because transferred from [facility] for respiratory failure, on arrival he was hypotensive. He was recently in the hospital 06/17-06/19 for hypercalcemia and he was discharged on Sensipar which is thought secondary to hyperparathyroidism. Patient currently lives in the ICU using the BiPAP machine which limits history taken and provide information on the top of that patient is confused but he follows commands appropriately. He can answer some questions like he says he has no pain. He is asking if he can smoke now we explained for him he cannot declines the nicotine patch. Patient currently mildly tachycardic around 108, blood pressure is better 101/81 while he is on pressors. He is on BiPAP machine and he had a temperature of 98. 6. showing creatinine of 5.2 with baseline 2.2-2.9, calcium slightly elevated at 11.5. WBC is 15.7 while on steroids, while rest of CBC is unremarkable TSH is elevated at 4.7 but free T4 is normal at 0[place] [address] Ultrasound showing on obstructive uropathy but there is acute cholecystitis with thickened wall. Chest x-ray is suspicious for cardiomegaly and pulmonary edema EKG showing A. fib with rate of 82 b per minute. Patient currently in the ICU on amiodarone drip, Lasix drip at 10 mg per hour , levophed at 0.03 and Solu-Medrol 60 mg, Precedex and IV thiamine 06/28/2023 patient cannot get off the BiPAP overnight and early this morning, he desaturates easily. He remains on amiodarone drip, Lasix drip at 10 mg per hour, and a small dose of levophed at 0.03 and Precedex and thiamine. Distal, not tolerate oral medication and his Eliquis switch to Lovenox 120 mg once daily because of his high creatinine This pH 7.3, pCO2 50 and PaO2 of 76, which is a slightly better than yesterday. Creatinine coming down to 4.4. Ca is also coming down 10.1. WBC still elevated at 13.9 but also patient on steroids. General surgery R following for acute cholecystitis, HIDA scan is ordered, currently on Flagyl and Rocephin Active Medications Generic Name Dose Route Start Last Admin Trade Name Freq PRN Reason Stop Dose Admin Acetaminophen 650 mg 06/26/23 15:21 Acetaminophen Tab 325 Mg Tab PO Q4HR PRN Fever and/or Mild Pain Albuterol Sulfate 2.5 mg 06/26/23 15:43 Albuterol Nebulized 2.5 Mg/3 Ml INHALATION RT-Q4H PRN Shortness Of Breath Albuterol/Ipratropium 3 ml 06/26/23 16:00 06/28/23 07:36 Ipratropium-Albuterol 3 Ml Neb INHALATION 3 ml RT-QID [facility] Administration Atorvastatin Calcium 80 mg 06/26/23 21:00 06/27/23 19:31 Atorvastatin 80 Mg Tab PO Not Given HS [facility] Budesonide 0.5 mg 06/26/23 20:00 06/28/23 07:36 Budesonide 0.5 Mg/2 Ml Nebu INHALATION 0.5 mg RT-BID [facility] Administration Cinacalcet 30 mg 06/27/23 09:00 06/27/23 09:52 Cinacalcet 30 Mg Tab PO Not Given DAILY [facility] Enoxaparin Sodium 120 mg 06/28/23 09:00 Enoxaparin 100 Mg/Ml Syringe SQ DAILY [facility] Famotidine 20 mg 06/27/23 09:00 06/27/23 08:03 Famotidine 20 Mg/2 Ml Vial IV 20 mg DAILY [facility] Administration Furosemide 100 mg/ Sodium 100 mls @ 10 mls/hr 06/26/23 16:30 06/28/23 03:20 Chloride IV 10 mg/hr .Q10H [facility] 10 mls/hr Administration 10 MG/HR Norepinephrine Bitartrate 4 mg 254 mls @ 12.184 mls/hr 06/26/23 18:15 06/28/23 01:42 / Sodium Chloride IV 0.03 mcg/kg/min .[id number] [facility] 12.184 mls/hr Titration Protocol 0.03 MCG/KG/MIN Dexmedetomidine HCl 400 mcg/ 100 mls @ 5.33 mls/hr 06/26/23 22:15 06/28/23 01:42 IV Solution IV 0.6 mcg/kg/hr .[id number] [facility] 15.989 mls/hr Titration Protocol 0.2 MCG/KG/HR Ceftriaxone Sodium 2 gm/ 50 mls @ 100 mls/hr 06/27/23 09:15 06/27/23 10:28 Sodium Chloride IVPB 100 mls/hr Q24HR [facility] Administration Protocol Metronidazole 500 mg/ IV 100 mls @ 100 mls/hr 06/27/23 09:15 06/28/23 01:50 Solution IVPB 100 mls/hr Q8HR [facility] Administration Protocol Amiodarone HCl 450 mg/ 250 mls @ 16.667 mls/hr 06/28/23 05:00 Dextrose/Water IV 06/28/23 22:59 .Q15H [facility] Protocol 0.5 MG/MIN Lorazepam 1 mg 06/27/23 10:58 06/27/23 20:43 Lorazepam 2 Mg/Ml Inj IV 1 mg Q4HR PRN Administration Anxiety Methylprednisolone Sodium Succinate 60 mg 06/27/23 00:00 06/28/23 00:53 Methylprednisolone Sod Succi 125 Mg/2 Ml Vial IV 60 mg Q8HR [facility] Administration Montelukast Sodium 10 mg 06/26/23 21:00 06/27/23 19:31 Montelukast 10 Mg Tab PO Not Given HS [facility] Naloxone HCl 0.2 mg 06/26/23 15:21 Naloxone 0.4 Mg/Ml 1 Ml Vial IV Q2M PRN Opioid Reversal Ondansetron HCl 4 mg 06/26/23 15:21 Ondansetron 4 Mg/2 Ml Vial IVP Q8HR PRN Nausea And Vomiting Thiamine HCl 100 mg 06/27/23 09:00 06/27/23 09:52 Thiamine 100 Mg/Ml 2 Ml Vial IVP Not Given DAILY [facility] Objective - Vital Signs Vital signs: Vital Signs Temp 98.8 F 06/28/23 04:00 Pulse 106 H 06/28/23 07:00 Resp 20 06/28/23 07:00 BP 105/77 06/28/23 06:30 Pulse Ox 93 L 06/28/23 07:00 FiO2 75 06/28/23 04:55 Intake & Output 06/27/23 06/28/23 06/28/23 18:59 06:59 18:59 Intake Total 1199.687 413.003 10 Output Total 1225 2150 225 Balance -25.313 -8876.997 -215 Weight 127.5 kg Intake: IV 160 120 10 0.9NS 60 120 10 Sodium Chloride 0.9% 1, 100 000 ml @ 20 mls/hr IV . Q24H [facility] Rx#:[id number] Intake, IV Titration 1039.687 293.003 Amount Amiodarone 450 mg In 203.893 Dextrose 5% in Water 250 ml @ 0.5 MG/MIN 16.667 mls/hr IV .Q15H [facility] Rx#: [id number] Dexmedetomidine/0.9% NaCl 262.469 143.635 (Pmx) 400 mcg In Empty Bag 1 bag @ 0.2 MCG/KG/HR 5.33 mls/hr IV .[id number] [facility] Rx#:[id number] Furosemide 100 mg In 182.333 89.333 Sodium Chloride 0.9% 90 ml @ 10 MG/HR 10 mls/hr IV .Q10H [facility] Rx#: [id number] Norepinephrine 4 mg In 140.992 60.035 Sodium Chloride 0.9% 250 ml @ 0.03 MCG/KG/MIN 12. 184 mls/hr IV .[id number] [facility] Rx#:[id number] cefTRIAXone 2 gm In 50 Sodium Chloride 0.9% 50 ml @ 100 mls/hr IVPB Q24HR [facility] Rx#:[id number] metroNIDAZOLE-NS PMX 500 200 mg In Saline 1 100ml.bag @ 100 mls/hr IVPB Q8HR [facility] Rx#:[id number] Output: Urine 1225 2150 225 Other: Voiding Method Indwelling Catheter Indwelling Catheter ABP, PAP, CO, CI - Last Documented Arterial Blood Pressure 102/68 - Exam -GENERAL: The patient is awake using BiPAP, mildly confused. Obese HEENT: Pupils are round and equally reacting to light. EOMI. No scleral icterus. No conjunctival pallor. Normocephalic, atraumatic. No pharyngeal erythema. No thyromegaly. CARDIOVASCULAR: S1 and S2 present. No murmurs, rubs, or gallops. -PULMONARY: Chest is limited air entry on both sides, slightly better than yesterday, no wheezing , no crackles. Mildly tachypneic while he is on BiPAP ABDOMEN: Soft, nontender, nondistended, normoactive bowel sounds. No palpable organomegaly. MUSCULOSKELETAL: No joint swelling or deformity. EXTREMITIES: No cyanosis, clubbing, or pedal edema. NEUROLOGICAL: Gross neurological examination did not reveal any focal deficits. SKIN: No rashes. no petechiae. - Labs CBC & Chem 7: 06/28/23 03:25 06/28/23 03:25 Labs: Abnormal Lab Results - Last 24 Hours (Table) 06/27/23 06/27/23 06/27/23 Range/Units 05:02 09:30 09:33 WBC (3.8-10.6) k/uL MCV (80.0-100.0) fL Neutrophils # (1.3-7.7) k/uL Lymphocytes # (1.0-4.8) k/uL ABG pH 7.21 L (7.35-7.45) ABG pCO2 62 H (35-45) mmHg ABG pO2 79 L (83-108) mmHg ABG HCO3 (21-25) mmol/L ABG Total CO2 27 H (19-24) mmol/L ABG O2 Saturation (94-97) % Sodium 136 L (137-145) mmol/L Potassium 5.9 H (3.5-5.1) mmol/L Chloride 97 L (98-107) mmol/L BUN 107 H* (9-20) mg/dL Creatinine 5.17 H (0.66-1.25) mg/dL Glucose 108 H (74-99) mg/dL Calcium 10.9 H (8.4-10.2) mg/dL Phosphorus 8.0 H (2.5-4.5) mg/dL Magnesium 2.4 H (1.6-2.3) mg/dL Delta Bilirubin 0.4 H (0.0-0.2) mg/dL AST 16 L (17-59) U/L Total Protein 6.2 L (6.3-8.2) g/dL Albumin 3.3 L (3.5-5.0) g/dL 06/27/23 06/27/23 06/28/23 Range/Units 14:02 15:15 03:25 WBC 13.9 H (3.8-10.6) k/uL MCV 104.0 H (80.0-100.0) fL Neutrophils # 12.4 H (1.3-7.7) k/uL Lymphocytes # 0.5 L (1.0-4.8) k/uL ABG pH 7.26 L (7.35-7.45) ABG pCO2 57 H (35-45) mmHg ABG pO2 72 L (83-108) mmHg ABG HCO3 26 H (21-25) mmol/L ABG Total CO2 28 H (19-24) mmol/L ABG O2 Saturation 93.9 L (94-97) % Sodium 136 L (137-145) mmol/L Potassium 5.3 H (3.5-5.1) mmol/L Chloride (98-107) mmol/L BUN (9-20) mg/dL Creatinine (0.66-1.25) mg/dL Glucose (74-99) mg/dL Calcium (8.4-10.2) mg/dL Phosphorus (2.5-4.5) mg/dL Magnesium (1.6-2.3) mg/dL Delta Bilirubin (0.0-0.2) mg/dL AST (17-59) U/L Total Protein (6.3-8.2) g/dL Albumin (3.5-5.0) g/dL 06/28/23 06/28/23 Range/Units 03:25 04:55 WBC (3.8-10.6) k/uL MCV (80.0-100.0) fL Neutrophils # (1.3-7.7) k/uL Lymphocytes # (1.0-4.8) k/uL ABG pH 7.34 L (7.35-7.45) ABG pCO2 50 H (35-45) mmHg ABG pO2 76 L (83-108) mmHg ABG HCO3 27 H (21-25) mmol/L ABG Total CO2 28 H (19-24) mmol/L ABG O2 Saturation (94-97) % Sodium (137-145) mmol/L Potassium (3.5-5.1) mmol/L Chloride (98-107) mmol/L BUN 111 H* (9-20) mg/dL Creatinine 4.44 H (0.66-1.25) mg/dL Glucose 168 H (74-99) mg/dL Calcium (8.4-10.2) mg/dL Phosphorus 5.8 H (2.5-4.5) mg/dL Magnesium (1.6-2.3) mg/dL Delta Bilirubin (0.0-0.2) mg/dL AST 16 L (17-59) U/L Total Protein (6.3-8.2) g/dL Albumin 3.2 L (3.5-5.0) g/dL Assessment and Plan Assessment: Acute COPD exacerbation Acute on chronic diastolic CHF with a preserved ejection fraction Acute hypoxemic hypercapnic respiratory failure, secondary to above Possible acute cholecystitis A. fib and RVR Acute kidney injury on chronic kidney disease stage IV Moderate to severe aortic stenosis Hypercalcemia secondary to hyperparathyroidism on treatment Alcohol use disorder Nicotine dependence Chronic hypoxic respiratory failure Morbid obesity with BMI 41.7. Plan: Continue with amiodarone drip, Continue with Lasix drip at 10 mg per hour Continue with levophed at 0.03 Continue with Solu-Medrol 60 mg follow-up echocardiogram for aortic stenosis General surgery R following for acute cholecystitis Antibiotic started with Rocephin and Flagyl Several consultants of the case with the pulmonary/critical care team, nephrology, neurology. We'll consult general surgery for possible acute cholecystitis. Labs and medication were reviewed.. Continue same treatment. Continue with symptomatic treatment. Resume home medication. Monitor labs and vitals. DVT and GI prophylaxis. Further recommendations as per clinical course of the patient DVT prophylaxis: on eliquis GI Prophylaxis: Pepcid PT/OT: differed Prognosis is guarded
[2023-06-28] MEDS: DEXMEDETOMIDINE/0.9% NACL(PMX) 400 MCG in EMPTY BAG 1 BAG IV SCH ×5 (07:44→20:07)
[2023-06-28] MEDS: AMIODARONE 450 MG in DEXTROSE 5% IN WATER 250 ML IV SCH ×4 (07:45→18:45)
[2023-06-28] MEDS: NOREPINEPHRINE 4 MG in SODIUM CHLORIDE 0.9% 250 ML IV SCH (07:50)
--- NOTE | 2023-06-28 08:03 | XR ---
EXAMINATION TYPE: XR chest 1V portable DATE OF EXAM: 06/28/2023 5:22 AM CLINICAL INDICATION:Male, 73 years old with history of chf; COMPARISON: Chest radiographs from 06/27/2023 TECHNIQUE: XR chest 1V portable Frontal view of the chest. FINDINGS: Lungs/Pleura: There is no evidence of pleural effusion, focal consolidation, or pneumothorax. Pulmonary vascularity: Pulmonary vascular congestion. Heart/mediastinum: Cardiomediastinal silhouette is enlarged and stable. Musculoskeletal: No acute osseous pathology. Other findings: None Lines/Tubes: Left internal jugular central venous catheter with distal tip at the superior vena cava brachiocephal ic vein junction. IMPRESSION: 1. 2. Cardiomegaly, pulmonary vascular congestion and bilateral pleural effusions. Correlate with [employer] for congestive heart failure. 2. Left central line in appropriate position. No evidence for pneumothorax.
[2023-06-28] MEDS: FAMOTIDINE 20 MG/2 ML VIAL IV SCH (08:46)
[2023-06-28] MEDS: THIAMINE 100 MG/ML 2 ML VIAL IVP SCH (08:47)
[2023-06-28] MEDS: LORazepam 2 MG/ML INJ IV PRN ×4 (08:57→23:22)
[2023-06-28] MEDS ORDERED: ENOXAPARIN 120 MG/0.8 ML SYRINGE SQ SCH (09:00)
--- NOTE | 2023-06-28 10:38 | P.PN ---
Subjective Progress Note Date: 06/28/23 Principal diagnosis: Gallbladder wall thickening 73-year-old male remains in the ICU. Patient is on a nonrebreather. Patient is confused and going through DTs reportedly. A HIDA scan was ordered yesterday but patient not stable for study at this time. When the patient has been more lucid no complaints of abdominal pain. Liver enzymes are normal. Objective - Vital Signs Vital signs: Vital Signs Temp 99.0 F 06/28/23 08:00 Pulse 103 H 06/28/23 09:00 Resp 25 H 06/28/23 09:00 BP 103/79 06/28/23 09:00 Pulse Ox 92 L 06/28/23 09:00 FiO2 75 06/28/23 10:17 Intake & Output 06/27/23 06/28/23 06/28/23 18:59 06:59 18:59 Intake Total 1199.687 445.538 280.018 Output Total 1225 2150 875 Balance -25.313 -1704.462 -594.982 Weight 127.5 kg Intake: IV 160 120 40 0.9NS 60 120 40 Sodium Chloride 0.9% 1, 100 000 ml @ 20 mls/hr IV . Q24H [facility] Rx#:[id number] Intake, IV Titration 1039.687 325.538 240.018 Amount Amiodarone 450 mg In 203.893 Dextrose 5% in Water 250 ml @ 0.5 MG/MIN 16.667 mls/hr IV .Q15H [facility] Rx#: [id number] Dexmedetomidine/0.9% NaCl 262.469 176.170 15.358 (Pmx) 400 mcg In Empty Bag 1 bag @ 0.2 MCG/KG/HR 5.33 mls/hr IV .[id number] [facility] Rx#:[id number] Furosemide 100 mg In 182.333 89.333 Sodium Chloride 0.9% 90 ml @ 10 MG/HR 10 mls/hr IV .Q10H [facility] Rx#: [id number] Norepinephrine 4 mg In 140.992 60.035 74.660 Sodium Chloride 0.9% 250 ml @ 0.03 MCG/KG/MIN 12. 184 mls/hr IV .[id number] [facility] Rx#:[id number] cefTRIAXone 2 gm In 50 50 Sodium Chloride 0.9% 50 ml @ 100 mls/hr IVPB Q24HR [facility] Rx#:[id number] metroNIDAZOLE-NS PMX 500 200 100 mg In Saline 1 100ml.bag @ 100 mls/hr IVPB Q8HR [facility] Rx#:[id number] Output: Urine 1225 2150 875 Other: Voiding Method Indwelling Catheter Indwelling Catheter Indwelling Catheter ABP, PAP, CO, CI - Last Documented Arterial Blood Pressure 98/67 - Exam Abdomen: Soft, obese, nontender, mildly distended - Labs CBC & Chem 7: 06/28/23 03:25 06/28/23 03:25 Labs: Abnormal Lab Results - Last 24 Hours (Table) 06/27/23 06/27/23 06/27/23 Range/Units 09:30 14:02 15:15 WBC (3.8-10.6) k/uL MCV (80.0-100.0) fL Neutrophils # (1.3-7.7) k/uL Lymphocytes # (1.0-4.8) k/uL ABG pH 7.26 L (7.35-7.45) ABG pCO2 57 H (35-45) mmHg ABG pO2 72 L (83-108) mmHg ABG HCO3 26 H (21-25) mmol/L ABG Total CO2 28 H (19-24) mmol/L ABG O2 Saturation 93.9 L (94-97) % Sodium 136 L (137-145) mmol/L Potassium 5.3 H (3.5-5.1) mmol/L BUN (9-20) mg/dL Creatinine (0.66-1.25) mg/dL Glucose (74-99) mg/dL Phosphorus (2.5-4.5) mg/dL Delta Bilirubin 0.4 H (0.0-0.2) mg/dL AST 16 L (17-59) U/L Total Protein 6.2 L (6.3-8.2) g/dL Albumin 3.3 L (3.5-5.0) g/dL 06/28/23 06/28/23 06/28/23 Range/Units 03:25 03:25 04:55 WBC 13.9 H (3.8-10.6) k/uL MCV 104.0 H (80.0-100.0) fL Neutrophils # 12.4 H (1.3-7.7) k/uL Lymphocytes # 0.5 L (1.0-4.8) k/uL ABG pH 7.34 L (7.35-7.45) ABG pCO2 50 H (35-45) mmHg ABG pO2 76 L (83-108) mmHg ABG HCO3 27 H (21-25) mmol/L ABG Total CO2 28 H (19-24) mmol/L ABG O2 Saturation (94-97) % Sodium (137-145) mmol/L Potassium (3.5-5.1) mmol/L BUN 111 H* (9-20) mg/dL Creatinine 4.44 H (0.66-1.25) mg/dL Glucose 168 H (74-99) mg/dL Phosphorus 5.8 H (2.5-4.5) mg/dL Delta Bilirubin (0.0-0.2) mg/dL AST 16 L (17-59) U/L Total Protein (6.3-8.2) g/dL Albumin 3.2 L (3.5-5.0) g/dL Assessment and Plan Assessment: 73-year-old male with recent findings of gallbladder wall thickening incidentally on ultrasound of the kidneys. No gallstones described. HIDA scan was ordered. This remains on hold given the patient's respiratory instability. Continue antibiotics empirically. Will follow.
[2023-06-28] MEDS ORDERED: AMIODARONE 450 MG in DEXTROSE 5% IN WATER 250 ML IV SCH ×2 (10:45)
--- NOTE | 2023-06-28 10:46 | P.PN ---
Subjective Progress Note Date: 06/28/23 Principal diagnosis: Acute on chronic hypoxic and hypercapnic respiratory failure This is a 73-year-old white male with history of multiple medical problems including chronic congestive heart failure, COPD, chronic kidney disease, chronic hypoxic respiratory failure, obstructive sleep apnea syndrome, maintained on CPAP now patient was transferred from [facility] with 2 days history of increased shortness of breath. I have seen this patient in the past and his last evaluation in the hospital was on 02/16/2023. At that time the patient presented with acute on chronic hypoxic and hypercapnic respiratory failure with congestive heart failure and COPD. He should also had moderate severe aortic stenosis, and morbid obesity as well as chronic atrial fibrillation. Back then the patient was treated mostly aggressively with diuretics, and he was eventually discharged home after almost a week stay in the ICU. This time the patient has a very similar presentation, I saw the patient in the ER, and his is at bedside. Patient is now on BiPAP which I have adjusted to IPAP of 16 and EPAP 6, and he is also on 100% FiO2. ABG is pending, earlier venous ABG showed a pCO2 of 120 and pH of 7.01. After I evaluated the patient, I recommended immediate transfer to the ICU ABG, ultrasound of the chest, I cut down his IV fluid to KVO, started the patient on Lasix drip at 10 mg per hour. And explained to the that the patient may require intubation mechanical ventilation if his condition does not improve much and a short period of time. For low blood pressure may consider using norepinephrine, would definitely avoid using fluids at this point. Labs were reviewed chest x-ray was reviewed his BUN is 99 creatinine is 5.25, and his creatinine only a few days ago was 2.07. Apparently he is developing a worsening picture of chronic kidney disease. Could be cardiorenal. BNP level is 14,900 Reevaluated today on 06/27/2023, patient remains in the ICU, remains on Lasix drip at 10 mg per hour, amiodarone 0.5 mg/m for atrial fibrillation/RVR which she developed last night patient does have chronic history of atrial fibrillation remains on norepinephrine at 0.04 mcg/kg/m, he is on Precedex at 0.2 mcg/kg/hr, IV fluid at 20 mL per hour in the form of 0.9 normal saline. Blood pressure is noted to be borderline. Hence patient had a left subclavian t riple-lumen catheter placed and a left radial arterial line placement. Repeat ABG this morning continues to show significant metabolic and respiratory acidosis pO2 of 79 pCO2 62 pH of 7.21, potassium is up to 5.19, patient was given 1 amp of bicarb for his acidosis. His BUN is 107 creatinine 5.17, slightly better compared to yesterday, patient is being evaluated by nephrology. Remains on BiPAP at 16/6/75% FiO2. And overall his clinical status is critically ill/marginal. Patient is definitely high risk for intubation mechanical ventilation, the patient and his are both aware of this, however at this point I will hold on mechanically ventilated the patient. We'll continue BiPAP, continue Lasix drip, and continue pressors patient may eventually require hemodialysis. Ultrasound of the chest showed small bilateral pleural effusions left more so than right, the left sided pocket is not large enough to consider safe left sided thoracentesis. Patient was reevaluated today on 06/2023, remains in the ICU, remains on Lasix drip at 10 mg per hour, remains on BiPAP at 12/6/75%. Patient is still requiring Precedex at 0.6 mcg/kg/h, norepinephrine at 0.03 mcg/kg/m. Patient is negative balance over the last 24 hours about 2 L. And he is steadily improving but remains critically ill, and simply requiring pressors. ABG showed a pO2 of 76 pCO2 of 50 pH of 7.34, significantly improved compared to his initial ABG on admission where his pCO2 was in the 120 range. Patient remains on Rocephin and Flagyl, his CT of the abdomen raised the possibility of acute cholecystitis, but clinically I do not see any evidence of cholecystitis, the patient has no pain or tenderness in the right upper quadrant. Being considered for a HIDA scan. CT of the brain came back negative for acute process. WBC count today is 13.9 hemoglobin 15.4. Platelets are 226, basic metabolic profile is normal BUN is 111 creatinine is down to 4.44 improving in spite of aggressive diuresis on this patient. If her enzymes are basically normal. Chest x-ray this morning showed cardiomegaly, pulmonary vascular congestion, bilateral pleural effusions, however based on ultrasound, the left-sided pleural effusion was not large enough to consider safe thoracentesis Objective - Vital Signs Vital signs: Vital Signs Temp 99.0 F 06/28/23 08:00 Pulse 103 H 06/28/23 09:00 Resp 25 H 06/28/23 09:00 BP 103/79 06/28/23 09:00 Pulse Ox 92 L 06/28/23 09:00 FiO2 75 06/28/23 10:17 Intake & Output 06/27/23 06/28/23 06/28/23 18:59 06:59 18:59 Intake Total 1199.687 445.538 280.018 Output Total 1225 2150 875 Balance -25.313 -1704.462 -594.982 Weight 127.5 kg Intake: IV 160 120 40 0.9NS 60 120 40 Sodium Chloride 0.9% 1, 100 000 ml @ 20 mls/hr IV . Q24H [facility] Rx#:[id number] Intake, IV Titration 1039.687 325.538 240.018 Amount Amiodarone 450 mg In 203.893 Dextrose 5% in Water 250 ml @ 0.5 MG/MIN 16.667 mls/hr IV .Q15H [facility] Rx#: [id number] Dexmedetomidine/0.9% NaCl 262.469 176.170 15.358 (Pmx) 400 mcg In Empty Bag 1 bag @ 0.2 MCG/KG/HR 5.33 mls/hr IV .[id number] [facility] Rx#:[id number] Furosemide 100 mg In 182.333 89.333 Sodium Chloride 0.9% 90 ml @ 10 MG/HR 10 mls/hr IV .Q10H [facility] Rx#: [id number] Norepinephrine 4 mg In 140.992 60.035 74.660 Sodium Chloride 0.9% 250 ml @ 0.03 MCG/KG/MIN 12. 184 mls/hr IV .[id number] [facility] Rx#:[id number] cefTRIAXone 2 gm In 50 50 Sodium Chloride 0.9% 50 ml @ 100 mls/hr IVPB Q24HR [facility] Rx#:[id number] metroNIDAZOLE-NS PMX 500 200 100 mg In Saline 1 100ml.bag @ 100 mls/hr IVPB Q8HR [facility] Rx#:[id number] Output: Urine 1225 2150 875 Other: Voiding Method Indwelling Catheter Indwelling Catheter Indwelling Catheter ABP, PAP, CO, CI - Last Documented Arterial Blood Pressure 98/67 - Exam Physical Exam: Revealed 73-year-old white male obese on BiPAP, seems to be comfortable on BiPAP. Head: Atraumatic, normocephalic. HEENT:[Neck is supple.] [No neck masses.] [No thyromegaly.] [Mild JVD noted Chest: Diminished breath sounds at the bases, mostly diminished on the left side. Cardiac Exam: [Irregular irregular rhythm, 3/6 systolic murmur thought the precordium. Abdomen: Obese, [Soft, nontender, no megaly, no rebound, no guarding, normal bowel sounds.] Extremities: [No clubbing, no edema, no cyanosis.] Neurological Exam: Patient is awake, but confused, follows instructions Psychiatric: Normal mood, flat affect, confused mental status Skin: No rashes, diminished distal pulses bilaterally. - Labs CBC & Chem 7: 06/28/23 03:25 06/28/23 03:25 Labs: Abnormal Lab Results - Last 24 Hours (Table) 06/27/23 06/27/23 06/27/23 Range/Units 09:30 14:02 15:15 WBC (3.8-10.6) k/uL MCV (80.0-100.0) fL Neutrophils # (1.3-7.7) k/uL Lymphocytes # (1.0-4.8) k/uL ABG pH 7.26 L (7.35-7.45) ABG pCO2 57 H (35-45) mmHg ABG pO2 72 L (83-108) mmHg ABG HCO3 26 H (21-25) mmol/L ABG Total CO2 28 H (19-24) mmol/L ABG O2 Saturation 93.9 L (94-97) % Sodium 136 L (137-145) mmol/L Potassium 5.3 H (3.5-5.1) mmol/L BUN (9-20) mg/dL Creatinine (0.66-1.25) mg/dL Glucose (74-99) mg/dL Phosphorus (2.5-4.5) mg/dL Delta Bilirubin 0.4 H (0.0-0.2) mg/dL AST 16 L (17-59) U/L Total Protein 6.2 L (6.3-8.2) g/dL Albumin 3.3 L (3.5-5.0) g/dL 06/28/23 06/28/23 06/28/23 Range/Units 03:25 03:25 04:55 WBC 13.9 H (3.8-10.6) k/uL MCV 104.0 H (80.0-100.0) fL Neutrophils # 12.4 H (1.3-7.7) k/uL Lymphocytes # 0.5 L (1.0-4.8) k/uL ABG pH 7.34 L (7.35-7.45) ABG pCO2 50 H (35-45) mmHg ABG pO2 76 L (83-108) mmHg ABG HCO3 27 H (21-25) mmol/L ABG Total CO2 28 H (19-24) mmol/L ABG O2 Saturation (94-97) % Sodium (137-145) mmol/L Potassium (3.5-5.1) mmol/L BUN 111 H* (9-20) mg/dL Creatinine 4.44 H (0.66-1.25) mg/dL Glucose 168 H (74-99) mg/dL Phosphorus 5.8 H (2.5-4.5) mg/dL Delta Bilirubin (0.0-0.2) mg/dL AST 16 L (17-59) U/L Total Protein (6.3-8.2) g/dL Albumin 3.2 L (3.5-5.0) g/dL Assessment and Plan Assessment: Impression: Acute on chronic hypoxic and hypercapnic respiratory failure History of congestive heart failure, possibly diastolic in nature Acute on chronic kidney disease acute metabolic encephalopathy Morbid obesity Chronic atrial fibrillation Atrial fibrillation with RVR, rate seems to be better controlled today, Moderate severe aortic stenosis Obstructive sleep apnea syndrome History of alcoholism Dyslipidemia Mild bilateral pleural effusions secondary to congestive heart failure/diastolic in nature, fluid pockets are not large enough to consider safe thoracentesis acute hyperkalemia secondary to severe respiratory and metabolic acidosis and acute on chronic renal failure, Resolved Thickened, and dilated gallbladder, questionable cholecystitis but not appreciated clinically Recommendation: Continue to monitor in the ICU. Continue hemodynamic support/norepinephrine Continue Lasix drip, Monitor daily weights, I's and O's, and fluid balance Continue BiPAP 26/12/74 however trials on airvo may be appropriate Continuex, Precede cardiology is addressing his amiodarone and his atrial fibrillation with RVR restarted his isis Ordaz updrafts 4 times a day and when necessary Continue Pulmicort Respules IV Solu-Medrol 60 mg IV push every 6 hours Patient is critically ill, Critical care time is over 30 minutes We'll continue to follow Time with Patient: Greater than 30
--- NOTE | 2023-06-28 10:50 | P.PN ---
Subjective Patient is seen for follow-up for acute kidney injury. He is maintained on Precedex and has also been receiving Ativan for DTs. Patient remains on Lasix drip and low-dose levo fed. Urine output at 200-250 ML per hour. Patient is maintained on BiPAP and he will be tried on airvo today. Serum creatinine has improved to 4.4 today. Chest x-ray continues to show pulmonary vascular congestion. Objective - Vital Signs Vital signs: Vital Signs Temp 99.0 F 06/28/23 08:00 Pulse 103 H 06/28/23 09:00 Resp 25 H 06/28/23 09:00 BP 103/79 06/28/23 09:00 Pulse Ox 92 L 06/28/23 09:00 FiO2 75 06/28/23 10:17 Intake & Output 06/27/23 06/28/23 06/28/23 18:59 06:59 18:59 Intake Total 1199.687 445.538 280.018 Output Total 1225 2150 875 Balance -25.313 -1704.462 -594.982 Weight 127.5 kg Intake: IV 160 120 40 0.9NS 60 120 40 Sodium Chloride 0.9% 1, 100 000 ml @ 20 mls/hr IV . Q24H [facility] Rx#:[id number] Intake, IV Titration 1039.687 325.538 240.018 Amount Amiodarone 450 mg In 203.893 Dextrose 5% in Water 250 ml @ 0.5 MG/MIN 16.667 mls/hr IV .Q15H [facility] Rx#: [id number] Dexmedetomidine/0.9% NaCl 262.469 176.170 15.358 (Pmx) 400 mcg In Empty Bag 1 bag @ 0.2 MCG/KG/HR 5.33 mls/hr IV .[id number] [facility] Rx#:[id number] Furosemide 100 mg In 182.333 89.333 Sodium Chloride 0.9% 90 ml @ 10 MG/HR 10 mls/hr IV .Q10H [facility] Rx#: [id number] Norepinephrine 4 mg In 140.992 60.035 74.660 Sodium Chloride 0.9% 250 ml @ 0.03 MCG/KG/MIN 12. 184 mls/hr IV .[id number] [facility] Rx#:[id number] cefTRIAXone 2 gm In 50 50 Sodium Chloride 0.9% 50 ml @ 100 mls/hr IVPB Q24HR [facility] Rx#:[id number] metroNIDAZOLE-NS PMX 500 200 100 mg In Saline 1 100ml.bag @ 100 mls/hr IVPB Q8HR [facility] Rx#:[id number] Output: Urine 1225 2150 875 Other: Voiding Method Indwelling Catheter Indwelling Catheter Indwelling Catheter ABP, PAP, CO, CI - Last Documented Arterial Blood Pressure 98/67 - Exam Patient is currently on BiPAP. He is sedated with Valium. Examination of the heart S1 and S2 Examination of the lungs bilateral breath sounds are heard Abdomen is soft nontender, obese Examination of lower extremity shows trace edema - Labs CBC & Chem 7: 06/28/23 03:25 06/28/23 03:25 Labs: Abnormal Lab Results - Last 24 Hours (Table) 06/27/23 06/27/23 06/27/23 Range/Units 09:30 14:02 15:15 WBC (3.8-10.6) k/uL MCV (80.0-100.0) fL Neutrophils # (1.3-7.7) k/uL Lymphocytes # (1.0-4.8) k/uL ABG pH 7.26 L (7.35-7.45) ABG pCO2 57 H (35-45) mmHg ABG pO2 72 L (83-108) mmHg ABG HCO3 26 H (21-25) mmol/L ABG Total CO2 28 H (19-24) mmol/L ABG O2 Saturation 93.9 L (94-97) % Sodium 136 L (137-145) mmol/L Potassium 5.3 H (3.5-5.1) mmol/L BUN (9-20) mg/dL Creatinine (0.66-1.25) mg/dL Glucose (74-99) mg/dL Phosphorus (2.5-4.5) mg/dL Delta Bilirubin 0.4 H (0.0-0.2) mg/dL AST 16 L (17-59) U/L Total Protein 6.2 L (6.3-8.2) g/dL Albumin 3.3 L (3.5-5.0) g/dL 06/28/23 06/28/23 06/28/23 Range/Units 03:25 03:25 04:55 WBC 13.9 H (3.8-10.6) k/uL MCV 104.0 H (80.0-100.0) fL Neutrophils # 12.4 H (1.3-7.7) k/uL Lymphocytes # 0.5 L (1.0-4.8) k/uL ABG pH 7.34 L (7.35-7.45) ABG pCO2 50 H (35-45) mmHg ABG pO2 76 L (83-108) mmHg ABG HCO3 27 H (21-25) mmol/L ABG Total CO2 28 H (19-24) mmol/L ABG O2 Saturation (94-97) % Sodium (137-145) mmol/L Potassium (3.5-5.1) mmol/L BUN 111 H* (9-20) mg/dL Creatinine 4.44 H (0.66-1.25) mg/dL Glucose 168 H (74-99) mg/dL Phosphorus 5.8 H (2.5-4.5) mg/dL Delta Bilirubin (0.0-0.2) mg/dL AST 16 L (17-59) U/L Total Protein (6.3-8.2) g/dL Albumin 3.2 L (3.5-5.0) g/dL Assessment and Plan Assessment: 1. Acute kidney injury, ATN currently nonoliguric. Component of cardiorenal s yndrome as well. Indwelling Gordon catheter noted. Continue with Lasix drip. We will continue to monitor for need for renal replacement therapy. BUN disproportionately elevated secondary to steroids [place] at 2. Hyperkalemia associated with acute kidney injury. No evidence of obstruction on ultrasound. Status post IV treatment. 3. Acute hypercapnic respiratory failure currently maintained on BiPAP 4. Chronic kidney disease NKF stage IV with baseline creatinine around 2 mg/dL etiology is likely nephrosclerosis. Previous UA showed negative to trace protein. UA this admission shows 2+ protein. This will be monitored and workup will be performed down the road. 5. Hypercalcemia associated with primary hyperparathyroidism, started on Sensipar last admission. Patient's was supposed to have nuclear scan of the parathyroid gland performed as outpatient. 6. Moderate pulmonary hypertension 7. Morbid obesity 8. A. fib with RVR currently maintained on amiodarone drip Plan: Continue with Lasix drip Continue with Sensipar Add midodrine if patient is able to take oral medications. Repeat labs in a.m.
[2023-06-28] MEDS: CINACALCET 30 MG TAB PO SCH (11:17)
[2023-06-28] MEDS: MIDODRINE 5 MG TAB PO SCH ×2 (12:24→17:49)
[2023-06-28] MEDS ORDERED: METOPROLOL TARTRATE 5 MG/5 ML VIAL IVP PRN (12:46)
--- NOTE | 2023-06-28 12:46 | P.PN ---
Subjective HISTORY OF PRESENTING ILLNESS Patient is pleasant 73-year-old male with history of alcohol abuse, diastolic heart failure, COPD, atrial fibrillation, chronic kidney disease, obstructive sleep apnea, aortic stenosis. Patient currently lethargic receiving Precedex and Ativan for alcohol withdrawals. Therefore much of history is supplied by chart. Patient had been complaining of increasing shortness breath over the prior 2 days and initially went to [facility] abdomen was transferred to [facility]. His found to have hypoxic, hypercapnic respiratory failure as well as acute kidney injury with creatinine up to 5.2 with baseline of 2.0. Per history no recent fevers or chills or other complaints. EKG shows atrial fibrillation, right bundle branch morphology with nonspecific minimal ST depressions. Troponin 1 noted be normal. 06/28 Patient seen and examined. Patient more alert today however somnolent and not answering questions appropriately. He is on high flow and remains on Lasix drip with approximately 150-200 mL per hour. Creatinine mildly improved at 4.4. Echocardiogram has not been performed yet. Borderline blood pressures and on norepinephrine. He has had intermittent A. fib with RVR and received IV push and metoprolol with some improvement in heart rates to the 100-120 range. PHYSICAL EXAMINATION Vital signs reviewed. CONSTITUTIONAL: No apparent distress. HEENT: Head is normocephalic. Pupils are equal, round. Sclerae anicteric. Mucous membranes of the mouth are moist. No JVD. No carotid bruit. CHEST EXAMINATION: Lungs are clear to auscultation. No chest wall tenderness is noted on palpation or with deep breathing. HEART EXAMINATION: Irregular rate and rhythm. S1, S2 heard. No murmurs, gallops or rub. ABDOMEN: Soft, nontender. Positive bowel sounds. EXTREMITIES: 2+ peripheral pulses, no lower extremity edema and no calf tenderness. NEUROLOGIC EXAMINATION: Patient is awake, somnolent on bipap ASSESSMENT 1. Acute on chronic hypercapnic respiratory failure 2. Persistent atrial fibrillation with RVR 3. Acute kidney injury, baseline creatinine 2.0 4. Aortic stenosis 5. Acute on chronic diastolic heart failure 6. Alcohol withdrawal 7. Alcohol abuse 8. Hypotension 9. Altered mental status appears likely related to alcohol withdrawal and medications, hypercapnia PLAN Await 2D echo to evaluate left ventricular function as well as degree of aortic stenosis. Continue with Lasix drip and Cr appears to be improving with diuresis, still appears volume overloaded. Continue supportive care for alcohol withdrawals. Avoid hypotension and continue with pressors. PRN pushes of Metoprolol for Afib with RVR Prognosis guarded. Further recommendations to follow. Objective - Vital Signs Vital signs: Vital Signs Temp 99.3 F 06/28/23 12:00 Pulse 107 H 06/28/23 12:00 Resp 24 06/28/23 12:00 BP 103/79 06/28/23 09:00 Pulse Ox 95 06/28/23 12:00 FiO2 80 06/28/23 11:27 Intake & Output 06/27/23 06/28/23 06/28/23 18:59 06:59 18:59 Intake Total 1199.687 445.538 306.213 Output Total 1225 2150 1225 Balance -25.313 -1704.462 -918.787 Weight 127.5 kg Intake: IV 160 120 60 0.9NS 60 120 60 Sodium Chloride 0.9% 1, 100 000 ml @ 20 mls/hr IV . Q24H [facility] Rx#:[id number] Intake, IV Titration 1039.687 325.538 246.213 Amount Amiodarone 450 mg In 203.893 Dextrose 5% in Water 250 ml @ 0.5 MG/MIN 16.667 mls/hr IV .Q15H [facility] Rx#: [id number] Dexmedetomidine/0.9% NaCl 262.469 176.170 21.553 (Pmx) 400 mcg In Empty Bag 1 bag @ 0.2 MCG/KG/HR 5.33 mls/hr IV .[id number] [facility] Rx#:[id number] Furosemide 100 mg In 182.333 89.333 Sodium Chloride 0.9% 90 ml @ 10 MG/HR 10 mls/hr IV .Q10H [facility] Rx#: [id number] Norepinephrine 4 mg In 140.992 60.035 74.660 Sodium Chloride 0.9% 250 ml @ 0.03 MCG/KG/MIN 12. 184 mls/hr IV .[id number] [facility] Rx#:[id number] cefTRIAXone 2 gm In 50 50 Sodium Chloride 0.9% 50 ml @ 100 mls/hr IVPB Q24HR [facility] Rx#:[id number] metroNIDAZOLE-NS PMX 500 200 100 mg In Saline 1 100ml.bag @ 100 mls/hr IVPB Q8HR [facility] Rx#:[id number] Output: Urine 1225 2150 1225 Other: Voiding Method Indwelling Catheter Indwelling Catheter Indwelling Catheter ABP, PAP, CO, CI - Last Documented Arterial Blood Pressure 104/67 - Labs CBC & Chem 7: 06/28/23 03:25 06/28/23 03:25 Labs: Abnormal Lab Results - Last 24 Hours (Table) 06/27/23 06/27/23 06/28/23 Range/Units 14:02 15:15 03:25 WBC 13.9 H (3.8-10.6) k/uL MCV 104.0 H (80.0-100.0) fL Neutrophils # 12.4 H (1.3-7.7) k/uL Lymphocytes # 0.5 L (1.0-4.8) k/uL ABG pH 7.26 L (7.35-7.45) ABG pCO2 57 H (35-45) mmHg ABG pO2 72 L (83-108) mmHg ABG HCO3 26 H (21-25) mmol/L ABG Total CO2 28 H (19-24) mmol/L ABG O2 Saturation 93.9 L (94-97) % Sodium 136 L (137-145) mmol/L Potassium 5.3 H (3.5-5.1) mmol/L BUN (9-20) mg/dL Creatinine (0.66-1.25) mg/dL Glucose (74-99) mg/dL Phosphorus (2.5-4.5) mg/dL AST (17-59) U/L Albumin (3.5-5.0) g/dL 06/28/23 06/28/23 Range/Units 03:25 04:55 WBC (3.8-10.6) k/uL MCV (80.0-100.0) fL Neutrophils # (1.3-7.7) k/uL Lymphocytes # (1.0-4.8) k/uL ABG pH 7.34 L (7.35-7.45) ABG pCO2 50 H (35-45) mmHg ABG pO2 76 L (83-108) mmHg ABG HCO3 27 H (21-25) mmol/L ABG Total CO2 28 H (19-24) mmol/L ABG O2 Saturation (94-97) % Sodium (137-145) mmol/L Potassium (3.5-5.1) mmol/L BUN 111 H* (9-20) mg/dL Creatinine 4.44 H (0.66-1.25) mg/dL Glucose 168 H (74-99) mg/dL Phosphorus 5.8 H (2.5-4.5) mg/dL AST 16 L (17-59) U/L Albumin 3.2 L (3.5-5.0) g/dL
[2023-06-28 13:27] LABS: Vitamin B12 >3600.0 pg/mL (200.0-944.0)
--- NOTE | 2023-06-28 14:12 | P.PN ---
Subjective Progress Note Date: 06/28/23 Patient was seen for a follow-up. Patient's was also present today. BiPAP has been changed to Airvo. He still very encephalopathic, not oriented. Per patient's report, he walks with a walker at home. Patient is more awake as compared to yesterday. Please refer to examination below. Objective - Vital Signs Vital signs: Vital Signs Temp 99.3 F 06/28/23 12:00 Pulse 107 H 06/28/23 12:00 Resp 24 06/28/23 12:00 BP 103/79 06/28/23 09:00 Pulse Ox 95 06/28/23 12:00 FiO2 80 06/28/23 11:27 Intake & Output 06/27/23 06/28/23 06/28/23 18:59 06:59 18:59 Intake Total 1199.687 445.538 518.659 Output Total 1225 2150 1225 Balance -25.313 -1704.462 -706.341 Weight 127.5 kg Intake: IV 160 120 60 0.9NS 60 120 60 Sodium Chloride 0.9% 1, 100 000 ml @ 20 mls/hr IV . Q24H [facility] Rx#:[id number] Intake, IV Titration 1039.687 325.538 458.659 Amount Amiodarone 450 mg In 203.893 Dextrose 5% in Water 250 ml @ 0.5 MG/MIN 16.667 mls/hr IV .Q15H [facility] Rx#: [id number] Dexmedetomidine/0.9% NaCl 262.469 176.170 133.999 (Pmx) 400 mcg In Empty Bag 1 bag @ 0.2 MCG/KG/HR 5.33 mls/hr IV .[id number] [facility] Rx#:[id number] Furosemide 100 mg In 182.333 89.333 100 Sodium Chloride 0.9% 90 ml @ 10 MG/HR 10 mls/hr IV .Q10H [facility] Rx#: [id number] Norepinephrine 4 mg In 140.992 60.035 74.660 Sodium Chloride 0.9% 250 ml @ 0.03 MCG/KG/MIN 12. 184 mls/hr IV .[id number] [facility] Rx#:[id number] cefTRIAXone 2 gm In 50 50 Sodium Chloride 0.9% 50 ml @ 100 mls/hr IVPB Q24HR [facility] Rx#:[id number] metroNIDAZOLE-NS PMX 500 200 100 mg In Saline 1 100ml.bag @ 100 mls/hr IVPB Q8HR PENDING SALE TO [facility] Rx#:[id number] Output: Urine 1225 2150 1225 Other: Voiding Method Indwelling Catheter Indwelling Catheter Indwelling Catheter ABP, PAP, CO, CI - Last Documented Arterial Blood Pressure 104/67 - Exam Patient is more alert and awake. He still very encephalopathic. He knows that he is in [place] but could not tell the year. Speech is otherwise clear. Patient did not cooperate with examination. His individual small group instructor was equal and he was able to wiggle his feet bilaterally. No obvious focal weakness. - Labs CBC & Chem 7: 06/28/23 03:25 06/28/23 03:25 Labs: Abnormal Lab Results - Last 24 Hours (Table) 06/27/23 06/27/23 06/28/23 Range/Units 14:02 15:15 03:25 WBC 13.9 H (3.8-10.6) k/uL MCV 104.0 H (80.0-100.0) fL Neutrophils # 12.4 H (1.3-7.7) k/uL Lymphocytes # 0.5 L (1.0-4.8) k/uL ABG pH 7.26 L (7.35-7.45) ABG pCO2 57 H (35-45) mmHg ABG pO2 72 L (83-108) mmHg ABG HCO3 26 H (21-25) mmol/L ABG Total CO2 28 H (19-24) mmol/L ABG O2 Saturation 93.9 L (94-97) % Sodium 136 L (137-145) mmol/L Potassium 5.3 H (3.5-5.1) mmol/L BUN (9-20) mg/dL Creatinine (0.66-1.25) mg/dL Glucose (74-99) mg/dL Phosphorus (2.5-4.5) mg/dL AST (17-59) U/L Albumin (3.5-5.0) g/dL Vitamin B12 >3600.0 H (200.0-944.0) pg/mL 06/28/23 06/28/23 Range/Units 03:25 04:55 WBC (3.8-10.6) k/uL MCV (80.0-100.0) fL Neutrophils # (1.3-7.7) k/uL Lymphocytes # (1.0-4.8) k/uL ABG pH 7.34 L (7.35-7.45) ABG pCO2 50 H (35-45) mmHg ABG pO2 76 L (83-108) mmHg ABG HCO3 27 H (21-25) mmol/L ABG Total CO2 28 H (19-24) mmol/L ABG O2 Saturation (94-97) % Sodium (137-145) mmol/L Potassium (3.5-5.1) mmol/L BUN 111 H* (9-20) mg/dL Creatinine 4.44 H (0.66-1.25) mg/dL Glucose 168 H (74-99) mg/dL Phosphorus 5.8 H (2.5-4.5) mg/dL AST 16 L (17-59) U/L Albumin 3.2 L (3.5-5.0) g/dL Vitamin B12 (200.0-944.0) pg/mL Assessment and Plan Assessment: * Transient unequal pupil, likely due to either hypercapnia, or related to medication like Atrovent. Pupils equal now. Limited examination nonfocal. * Acute metabolic encephalopathy, reasons multifactorial as mentioned below. * History of alcoholism, watch for alcohol withdrawal. * Acute COPD exacerbation * Acute on chronic diastolic CHF with preserved EF * Atrial fibrillation with rapid ventricular rate * Moderate to severe aortic stenosis * Hypotension * Acute hypercapnic respiratory failure * Metabolic acidosis * Acute on chronic renal failure * Bilateral pleural effusions * Hypothyroidism * Possible cholecystitis * Alcoholism * Macrocytosis * X tobacco use Plan: * Patient's pupils are normal back to normal. Patient's examination is nonfocal. * Patient is macrocytosis, likely due to history of alcoholism. B12 > 3600, folate 7.70. We'll start folic acid 1 mg daily. * Watch for delirium tremens. Continue folate, multivitamins and thiamine. * Continue Eliquis 5 mg twice a day for stroke prevention related to atrial fibrillation. * Patient's complained of patient having slight dysarthria along with confusion prior to arrival. This is likely due to metabolic encephalopathy. * CT head revealed no acute process. Age-related atrophy. I personally reviewed CT head, agree with the findings. * Carotid Doppler revealed minimal plaque formation in the carotid bulbs and proximal ICAs with no hemodynamically significant stenosis. Antegrade flow in both vertebral arteries. * Treatment of other medical/surgical conditions as per IM and other specialties. * Neurologically no other workup indicated. Discussed with patient's . * Dr. Aaron Anaya starting neurology service from the morning. Please call neurology service if any other neurological concerns.
[2023-06-28] MEDS: FOLIC ACID 1 MG TAB PO SCH (15:11)
[2023-06-28] MEDS: ATORVASTATIN 80 MG TAB PO SCH (20:06)
[2023-06-28] MEDS: MONTELUKAST 10 MG TAB PO SCH (20:06)
[2023-06-29] MEDS: methylPREDNISolone SOD SUCCI 125 MG/2 ML VIAL IV SCH ×4 (00:52→23:40)
[2023-06-29] MEDS: metroNIDAZOLE-NS PMX 500 MG in SALINE 1 100ML.BAG IVPB SCH ×4 (00:53→23:40)
[2023-06-29] MEDS: DEXMEDETOMIDINE/0.9% NACL(PMX) 400 MCG in EMPTY BAG 1 BAG IV SCH ×2 (02:19→07:20)
[2023-06-29] MEDS: LORazepam 2 MG/ML INJ IV PRN ×5 (03:18→20:34)
[2023-06-29 05:27] LABS: Basophils % (A) 0 %; Eosinophils % (A) 0 %; HCT 48.9 % (39.0-53.0); Hypochromasia Slight; Lymphocytes # (A) 0.5 k/uL (1.0-4.8); Lymphocytes % (A) 3 %; MCH 33.4 pg (25.0-35.0); MCHC 32.8 g/dL (31.0-37.0); MCV 101.9 fL (80.0-100.0); Macrocytosis Slight; Monocytes # (A) 0.9 k/uL (0-1.0); Monocytes % (A) 6 %; Neutrophils # (A) 12.3 k/uL (1.3-7.7); Neutrophils % (A) 89 %; Platelet Count 203 k/uL (150-450); RDW 14.5 % (11.5-15.5); WBC 13.7 k/uL (3.8-10.6)
[2023-06-29 06:06] LABS: African American GFR (CKD) 17 (>60 ml/min/1.73 sqM); Anion Gap 13 mmol/L; Calcium 9.5 mg/dL (8.4-10.2); Carbon Dioxide 28 mmol/L (22-30); Chloride 102 mmol/L (98-107); Glucose 163 mg/dL (74-99); Non-African American GFR(CKD) 15 (>60 ml/min/1.73 sqM); Potassium 4.1 mmol/L (3.5-5.1); Sodium 143 mmol/L (137-145)
[2023-06-29 07:09] LABS: Blood Urea Nitrogen 117 mg/dL (9-20)
[2023-06-29] MEDS: BUDESONIDE 0.5 MG/2 ML NEBU INHALATION SCH ×2 (07:45→19:52)
[2023-06-29] MEDS: IPRATROPIUM-ALBUTEROL 3 ML NEB INHALATION SCH ×4 (07:45→19:52)
--- NOTE | 2023-06-29 08:09 | XR ---
EXAMINATION TYPE: XR chest 1V portable DATE OF EXAM: 06/29/2023 COMPARISON: 06/28/2023 INDICATION: CHF TECHNIQUE: Single frontal view of the chest is obtained. FINDINGS: The heart size is enlarged. The pulmonary vasculature is normal. Minimal infiltrate at the right base. Small left pleural effusion may be present. Port is present on the left with tip in the superior vena cava region. IMPRESSION: 1. Cardiomegaly with mild bibasilar pleural effusions. Mild at the right base. Correlate for congesti ve heart failure. Small amount of atelectasis may be at the right base.
[2023-06-29] MEDS: AMIODARONE 450 MG in DEXTROSE 5% IN WATER 250 ML IV SCH ×4 (08:46→22:54)
[2023-06-29] MEDS: HEPARIN SODIUM,PORCINE 5,000 UNIT/ML 1 ML VIAL SQ SCH ×2 (08:49→15:35)
[2023-06-29] MEDS: THIAMINE 100 MG/ML 2 ML VIAL IVP SCH (08:51)
[2023-06-29] MEDS: FAMOTIDINE 20 MG/2 ML VIAL IV SCH (08:52)
[2023-06-29] MEDS: MIDODRINE 5 MG TAB PO SCH ×3 (09:09→15:40)
[2023-06-29] MEDS: NOREPINEPHRINE 4 MG in SODIUM CHLORIDE 0.9% 250 ML IV SCH ×3 (09:09→15:39)
[2023-06-29] MEDS: FOLIC ACID 1 MG TAB PO SCH (09:09)
[2023-06-29] MEDS: CINACALCET 30 MG TAB PO SCH (09:09)
--- NOTE | 2023-06-29 09:29 | CA ---
Transthoracic Echo Report Name: Hemant Carr Age: 73 Gender: M : 1950 Exam Date: 06/29/2023 07:42 Exam Location: [place] [facility] Ht (in): 69 Wt (lb): 281 Ordering Physician: Luis Daniel Houser DO ([id number]) Attending/Referring Phys: Insurance Application Investigator Myriam Jin RDCS Procedure CPT: Indications: AF RVR Cardiac Hx: Technical Quality: Fair Contrast 1: Total Dose (mL): Contrast 2: Total Dose (mL): MEASUREMENTS (Male / Female) Normal Values 2D ECHO LV Diastolic Diameter PLAX 4.8 cm 4.2 - 5.9 / 3.9 - 5.3 cm IVS Diastolic Thickness 1.9 cm 0.6 - 1.0 / 0.6 - 0.9 cm LVPW Diastolic Thickness 1.2 cm 0.6 - 1.0 / 0.6 - 0.9 cm LV Relative Wall Thickness 0.6 LA Volume 92.1 cm??? 18 - 58 / 22 - 52 cm??? LA Volume Index 36.1 cm???/m??? 16 - 28 cm???/m??? M-MODE Aortic Root Diameter MM 4.6 cm LA Systolic Diameter MM 7.1 cm LA Ao Ratio MM 1.5 AV Cusp Separation MM 1.8 cm DOPPLER AV Peak Velocity 435.8 cm/s AV Peak Gradient 76.0 mmHg AV Mean Velocity 310.8 cm/s AV Mean Gradient 43.0 mmHg AV Velocity Time Integral 51.1 cm AI Peak Velocity 255.7 cm/s AI Peak Gradient 26.1 mmHg AI Pressure Half Time 600.0 ms LVOT Peak Velocity 116.9 cm/s LVOT Peak Gradient 5.5 mmHg LVOT Velocity Time Integral 30.3 cm MV Area PHT 2.2 cm??? Mitral E Point Velocity 78.8 cm/s Mitral A Point Velocity 0.5 cm/s Mitral E to A Ratio 146.4 MV Deceleration Time 351.5 ms MV E' Velocity 4.0 cm/s Mitral E to MV E' Ratio 19.8 TR Peak Velocity 286.6 cm/s TR Peak Gradient 32.8 mmHg Right Ventricular Systolic Press 37.8 mmHg FINDINGS Left Ventricle Moderately increased left ventricular wall thickness. Left ventricular cavity size normal.normal left ventricular wall motion. Left ventricular ejection fraction is estimated at 55-60 %. Right Ventricle Normal right ventricular size and function. Mild pulmonary hypertension. Right Atrium Normal right atrial size. Left Atrium Moderately increased left atrial volume. Mildly increased left atrial area. Mitral Valve Structurally normal mitral valve. Mild mitral annular calcification. Mild mitral regurgitation. Aortic Valve severe aortic stenosis with a peak gradient of 76 mmHg and a mean gradient of 43 mmHg.mild aortic regurgitation. Tricuspid Valve Structurally normal tricuspid valve. [id number] tricuspid regurgitation. Pulmonic Valve Pulmonic valve not well visualized. Pericardium Large pericardial effusion. Pericardial effusion filled with fibrous strands. Aorta Normal size aortic root and proximal ascending aorta. CONCLUSIONS 1. Normal left ventricular size and systolic function 2. Severe aortic stenosis with mild aortic regurgitation 3. Mild to moderate tricuspid with mild aortic regurgitation and mild pulmonary hypertension 4. Large pericardial effusion with no clear temporal not Previewed by: Dr. Katherine Veras MD (Electronically Signed) Final Date: 29 June 2023 09:28
--- NOTE | 2023-06-29 09:29 | PN ---
PROGRESS NOTE HISTORY: Mr. Carr is on a BiPAP. He has what seems to be hypercarbic respiratory failure. There is also probably some pneumonia as well. Echo today revealed a large pericardial effusion, severe aortic stenosis, preserved LV systolic function. He has chronic kidney disease, but the creatinine has shown improvement. He is also making urine. Urine output has improved. Creatinine is improving. The patient has some alcohol issues and there is withdrawal as well. He is on some sedation. Given his large pericardial effusion, I am recommending evaluation by Cardiac Surgery for possible window procedure. There is some fibrinous material within the pericardial fluid. There is not quite tamponade, but the effusion is quite looked significant. I am recommending a window procedure as well as continue his current management which is in the form of BiPAP as well as hemodynamics support. Urine output has improved. Creatinine has come down. PHYSICAL EXAMINATION: VITAL SIGNS: Stable. HEART: S1 and S2 heard normally. Irregularity in rhythm noted. Short systolic murmur heard. LUNGS: Revealed bilateral air entry. ABDOMEN: Soft. EXTREMITIES: Lower extremities revealed diminished pulses. NEUROLOGIC: Central nervous system assessment was not performed. The patient is quite sedated. I did not communicate with him. Prognosis remains guarded. We will request Cardiac Surgery to evaluate the patient. MMODL / IJN: [id number] /
--- NOTE | 2023-06-29 10:40 | P.PN ---
Subjective Patient is seen for follow-up for acute kidney injury. He is maintained on Precedex and has also been receiving Ativan for DTs. Patient remains on Lasix drip and low-dose levo fed. Urine output at 200-300 mL per hour. Patient is maintained on BiPAP . Serum creatinine has improved to 3.8 today. Chest x-ray continues to show pulmonary vascular congestion. BUN disproportionately elevated secondary to steroids. Objective - Vital Signs Vital signs: Vital Signs Temp 99.2 F 06/29/23 08:00 Pulse 117 H 06/29/23 09:30 Resp 18 06/29/23 09:30 BP 103/79 06/29/23 09:30 Pulse Ox 96 06/29/23 09:30 FiO2 75 06/29/23 07:46 Intake & Output 06/28/23 06/29/23 06/29/23 18:59 06:59 18:59 Intake Total 669.266 500.279 20 Output Total 2450 2320 500 Balance -1780.734 -1819.721 -480 Weight 127.4 kg Intake: IV 120 130 20 0.9NS 120 130 20 Intake, IV Titration 549.266 370.279 Amount Dexmedetomidine/0.9% NaCl 224.606 282.612 (Pmx) 400 mcg In Empty Bag 1 bag @ 0.2 MCG/KG/HR 5.33 mls/hr IV .[id number] [facility] Rx#:[id number] Furosemide 100 mg In 100 87.667 Sodium Chloride 0.9% 90 ml @ 10 MG/HR 10 mls/hr IV .Q10H [facility] Rx#: [id number] Norepinephrine 4 mg In 74.660 Sodium Chloride 0.9% 250 ml @ 0.03 MCG/KG/MIN 12. 184 mls/hr IV .[id number] [facility] Rx#:[id number] cefTRIAXone 2 gm In 50 Sodium Chloride 0.9% 50 ml @ 100 mls/hr IVPB Q24HR [facility] Rx#:[id number] metroNIDAZOLE-NS PMX 500 100 mg In Saline 1 100ml.bag @ 100 mls/hr IVPB Q8HR [facility] Rx#:[id number] Output: Urine 2450 2320 500 Other: Voiding Method Indwelling Catheter Indwelling Catheter ABP, PAP, CO, CI - Last Documented Arterial Blood Pressure 92/58 - Exam Patient is currently on BiPAP. He is awake. Trying to remove the BiPAP mask. Precedex has just been discontin ued Examination of the heart S1 and S2 Examination of the lungs bilateral breath sounds are heard Abdomen is soft nontender, obese Examination of lower extremity shows trace edema - Labs CBC & Chem 7: 06/29/23 05:00 06/29/23 05:00 Labs: Abnormal Lab Results - Last 24 Hours (Table) 06/27/23 06/28/23 06/29/23 Range/Units 15:15 08:30 05:00 WBC 13.7 H (3.8-10.6) k/uL MCV 101.9 H (80.0-100.0) fL Neutrophils # 12.3 H (1.3-7.7) k/uL Lymphocytes # 0.5 L (1.0-4.8) k/uL BUN (9-20) mg/dL Creatinine (0.66-1.25) mg/dL Glucose (74-99) mg/dL Vitamin B12 >3600.0 H (200.0-944.0) pg/mL Procalcitonin 0.47 H (0.02-0.09) ng/mL 06/29/23 Range/Units 05:00 WBC (3.8-10.6) k/uL MCV (80.0-100.0) fL Neutrophils # (1.3-7.7) k/uL Lymphocytes # (1.0-4.8) k/uL BUN 117 H* (9-20) mg/dL Creatinine 3.83 H (0.66-1.25) mg/dL Glucose 163 H (74-99) mg/dL Vitamin B12 (200.0-944.0) pg/mL Procalcitonin (0.02-0.09) ng/mL Assessment and Plan Assessment: 1. Acute kidney injury, ATN currently nonoliguric. Component of cardiorenal syndrome as well. Indwelling Gordon catheter present. Continue with Lasix drip. BUN disproportionately elevated secondary to steroids. 2. Hyperkalemia associated with acute kidney injury. No evidence of obstruction on ultrasound. Improved with improving urine output. 3. Acute hypercapnic respiratory failure currently maintained on BiPAP 4. Chronic kidney disease NKF stage IV with baseline creatinine around 2 mg/dL etiology is likely nephrosclerosis. Previous UA showed negative to trace protein. UA this admission shows 2+ protein. This will be monitored and workup will be performed down the road. 5. Hypercalcemia associated with primary hyperparathyroidism, started on Sensipar last admission. Patient's was supposed to have nuclear scan of the parathyroid gland performed as outpatient. 6. Moderate pulmonary hypertension 7. Morbid obesity 8. A. fib with RVR currently maintained on amiodarone drip Plan: Continue with Lasix drip Continue with Sensipar Add midodrine if patient is able to take oral medications. Repeat labs in a.m. Consider decreasing steroids
--- NOTE | 2023-06-29 11:23 | P.PN ---
Subjective Progress Note Date: 06/29/23 Principal diagnosis: Respiratory failure. Acute on chronic hypoxic and hypercapnic respiratory failure This is a 73-year-old white male with history of multiple medical problems i ncluding chronic congestive heart failure, COPD, chronic kidney disease, chronic hypoxic respiratory failure, obstructive sleep apnea syndrome, maintained on CPAP now patient was transferred from [facility] with 2 days history of increased shortness of breath. I have seen this patient in the past and his last evaluation in the hospital was on 02/16/2023. At that time the patient presented with acute on chronic hypoxic and hypercapnic respiratory failure with congestive heart failure and COPD. He should also had moderate severe aortic stenosis, and morbid obesity as well as chronic atrial fibrillation. Back then the patient was treated mostly aggressively with diuretics, and he was eventually discharged home after almost a week stay in the ICU. This time the patient has a very similar presentation, I saw the patient in the ER, and his is at bedside. Patient is now on BiPAP which I have adjusted to IPAP of 16 and EPAP 6, and he is also on 100% FiO2. ABG is pending, earlier venous ABG showed a pCO2 of 120 and pH of 7.01. After I evaluated the patient, I recommended immediate transfer to the ICU ABG, ultrasound of the chest, I cut down his IV fluid to KVO, started the patient on Lasix drip at 10 mg per hour. And explained to the that the patient may require intubation mechanical ventilation if his condition does not improve much and a short period of time. For low blood pressure may consider using norepinephrine, would definitely avoid using fluids at this point. Labs were reviewed chest x-ray was reviewed his BUN is 99 creatinine is 5.25, and his creatinine only a few days ago was 2.07. Apparently he is developing a worsening picture of chronic kidney disease. Could be cardiorenal. BNP level is 14,900 Reevaluated today on 06/27/2023, patient remains in the ICU, remains on Lasix drip at 10 mg per hour, amiodarone 0.5 mg/m for atrial fibrillation/RVR which she developed last night patient does have chronic history of atrial fibrillation remains on norepinephrine at 0.04 mcg/kg/m, he is on Precedex at 0.2 mcg/kg/hr, IV fluid at 20 mL per hour in the form of 0.9 normal saline. Blood pressure is noted to be borderline. Hence patient had a left subclavian triple-lumen catheter placed and a left radial arterial line placement. Repeat ABG this morning continues to show significant metabolic and respiratory acidosis pO2 of 79 pCO2 62 pH of 7.21, potassium is up to 5.19, patient was given 1 amp of bicarb for his acidosis. His BUN is 107 creatinine 5.17, slightly better compared to yesterday, patient is being evaluated by nephrology. Remains on BiPAP at 16/6/75% FiO2. And overall his clinical status is critically ill/marginal. Patient is definitely high risk for intubation mechanical ventilation, the patient and his are both aware of this, however at this point I will hold on mechanically ventilated the patient. We'll continue BiPAP, continue Lasix drip, and continue pressors patient may eventually require hemodialysis. Ultrasound of the chest showed small bilateral pleural effusions left more so than right, the left sided pocket is not large enough to consider safe left sided thoracentesis. Patient was reevaluated today on 06/2023, remains in the ICU, remains on Lasix drip at 10 mg per hour, remains on BiPAP at 12/6/75%. Patient is still requiring Precedex at 0.6 mcg/kg/h, norepinephrine at 0.03 mcg/kg/m. Patient is negative balance over the last 24 hours about 2 L. And he is steadily improving but remains critically ill, and simply requiring pressors. ABG showed a pO2 of 76 pCO2 of 50 pH of 7.34, significantly improved compared to his initial ABG on admission where his pCO2 was in the 120 range. Patient remains on Rocephin and Flagyl, his CT of the abdomen raised the possibility of acute cholecystitis, but clinically I do not see any evidence of cholecystitis, the patient has no pain or tenderness in the right upper quadrant. Being considered for a HIDA scan. CT of the brain came back negative for acute process. WBC count today is 13.9 hemoglobin 15.4. Platelets are 226, basic metabolic profile is normal BUN is 111 creatinine is down to 4.44 improving in spite of aggressive diuresis on this patient. If her enzymes are basically normal. Chest x-ray this morning showed cardiomegaly, pulmonary vascular congestion, bilateral pleural effusions, however based on ultrasound, the left-sided pleural effusion was not large enough to consider safe thoracentesis Progress note dated 06/29/2023. 73-year-old male seen in the intensive care unit, room 262. The patient is scheduled to have a pericardial window done today, June 29. Briefly, the patient was admitted to the hospital June 26, for CHF, acute mental status changes, and a pericardial effusion. The patient was admitted to the intensive care unit, on the day of admission. The patient's been between BiPAP, with settings of 12/6, and 75%, or AIRVO, at 60 L/m with an FiO2 of 80%. The patient is currently on norepinephrine at 2 mcg/m, dexmedetomidine at 0.3 mcg/kg/h, amiodarone at 0.5 mg/m, a Lasix drip at 10 mg an hour, and saline at KVO. White count is 13.7, hemoglobin 16, hematocrit 48.9, and a platelet count of 203,000. Sodium 143, potassium 4.1, chlorides 102, CO2 28, BUN 117, and creatinine 3.83. Pro-calcitonin level is 0.47, from yesterday. Chest x-ray shows cardiomegaly, with bibasilar effusions. Objective - Vital Signs Vital signs: Vital Signs Temp 99.2 F 06/29/23 08:00 Pulse 115 H 06/29/23 10:30 Resp 24 06/29/23 10:30 BP 103/79 06/29/23 10:30 Pulse Ox 93 L 06/29/23 10:30 FiO2 75 06/29/23 07:46 Intake & Output 06/28/23 06/29/23 06/29/23 18:59 06:59 18:59 Intake Total 669.266 500.279 180 Output Total 2450 2320 500 Balance -1780.734 -1819.721 -320 Weight 127.4 kg Intake: IV 120 130 180 0.9NS 120 130 30 cefTRIAXone 2 gm In 50 Sodium Chloride 0.9% 50 ml @ 100 mls/hr IVPB Q24HR [facility] Rx#:[id number] metroNIDAZOLE-NS PMX 500 100 mg In Saline 1 100ml.bag @ 100 mls/hr IVPB Q8HR [facility] Rx#:[id number] Intake, IV Titration 549.266 370.279 Amount Dexmedetomidine/0.9% NaCl 224.606 282.612 (Pmx) 400 mcg In Empty Bag 1 bag @ 0.2 MCG/KG/HR 5.33 mls/hr IV .[id number] [facility] Rx#:[id number] Furosemide 100 mg In 100 87.667 Sodium Chloride 0.9% 90 ml @ 10 MG/HR 10 mls/hr IV .Q10H [facility] Rx#: [id number] Norepinephrine 4 mg In 74.660 Sodium Chloride 0.9% 250 ml @ 0.03 MCG/KG/MIN 12. 184 mls/hr IV .[id number] [facility] Rx#:[id number] cefTRIAXone 2 gm In 50 Sodium Chloride 0.9% 50 ml @ 100 mls/hr IVPB Q24HR [facility] Rx#:[id number] metroNIDAZOLE-NS PMX 500 100 mg In Saline 1 100ml.bag @ 100 mls/hr IVPB Q8HR [facility] Rx#:[id number] Output: Urine 2450 2320 500 Other: Voiding Method Indwelling Catheter Indwelling Catheter Indwelling Catheter ABP, PAP, CO, CI - Last Documented Arterial Blood Pressure 93/57 - Exam No acute distress, sedated on Precedex, with BiPAP mask in place. HEENT examination is grossly unremarkable. Neck supple. Full range of motion. No adenopathy thyromegaly or neck vein distention. Cardiovascular examination reveals regular rhythm rate. S1-S2 normal. No S3 or S4. No discernible murmur noted. Heart rate 115 bpm. Lungs reveal scattered rhonchi. Rest sounds equal bilaterally. Saturations are 93%. No wheezes or crackles. Abdomen soft bowel sounds are heard. No masses or tenderness. Extremities are intact. No cyanosis clubbing or edema. Skin is without rash or lesion. Neurologic examination is brief but nonfocal. - Labs CBC & Chem 7: 06/29/23 05:00 06/29/23 05:00 Labs: Abnormal Lab Results - Last 24 Hours (Table) 06/27/23 06/28/23 06/29/23 Range/Units 15:15 08:30 05:00 WBC 13.7 H (3.8-10.6) k/uL MCV 101.9 H (80.0-100.0) fL Neutrophils # 12.3 H (1.3-7.7) k/uL Lymphocytes # 0.5 L (1.0-4.8) k/uL BUN (9-20) mg/dL Creatinine (0.66-1.25) mg/dL Glucose (74-99) mg/dL Vitamin B12 >3600.0 H (200.0-944.0) pg/mL Procalcitonin 0.47 H (0.02-0.09) ng/mL 06/29/23 Range/Units 05:00 WBC (3.8-10.6) k/uL MCV (80.0-100.0) fL Neutrophils # (1.3-7.7) k/uL Lymphocytes # (1.0-4.8) k/uL BUN 117 H* (9-20) mg/dL Creatinine 3.83 H (0.66-1.25) mg/dL Glucose 163 H (74-99) mg/dL Vitamin B12 (200.0-944.0) pg/mL Procalcitonin (0.02-0.09) ng/mL Assessment and Plan Assessment: Acute on chronic hypoxemic and hypercapnic respiratory failure. Pericardial effusion, with anticipated pericardial window 06/29/2023. Diastolic CHF. Acute on chronic kidney disease. Metabolic encephalopathy. Morbid obesity. Chronic atrial fibrillation, with paroxysmal atrial fibrillation/RVR. Moderately severe aortic stenosis. Obstructive sleep apnea syndrome. History of alcoholism. Hyperlipidemia. Plan: Plan dated 06/29/2023. The patient is scheduled to have a pericardial window, performed today, by cardiothoracic surgery. Otherwise, the patient remains critically ill in the intensive care unit, room 262. The patient's on norepinephrine at 2 mcg/m, dex medetomidine 0.3 mcg/kg/h, amiodarone at 0.5 mg/m, and a Lasix drip at 10 mg an hour. The patient has been between BiPAP in the AIRVO. Currently he is on BiPAP. The patient came to the intensive care unit, on June 26. We will continue to follow the patient, and make recommendations along the way. Prognosis is certainly guarded. Labs, x-rays, and medications are all reviewed. Time with Patient: Greater than 30
[2023-06-29] MEDS ORDERED: DEXTROSE 5% IN WATER 100 ML with AMIODARONE 150 MG IV ONE (11:35)
[2023-06-29] MEDS ORDERED: HALOPERIDOL LACTATE 5 MG/ML 1 ML VIAL IVP PRN ×2 (11:36→11:37)
--- NOTE | 2023-06-29 12:45 | P.GSCN ---
History of Present Illness Consult date: 06/29/23 Reason for Consult: Pericardial effusion Requesting physician: Marty Abdi History of present illness: This is a 73-year-old gentleman who follows outpatient with nurse practitioner Mili Hilliard for primary care. He has a previous medical history of aortic stenosis, atrial fibrillation status post cardioversion on eliquis for anticoagulation, chronic heart failure, previous tobacco dependence, COPD, PIPPA with home cpap use, daily alcohol use, hypertension, hyperlipidemia, chronic kidney disease, GIB. He has had a few hospitalizations in recent months for heart failure/shortness of breath. He presented to the ER this admission on 06/26/23 with similar complaints of shortness of breath. He required bipap use for acute hypoxic respiratory and hypercapneic failure. He was admitted to ICU with consultations placed to pulmonology, nephrology, neurology, cardiology, as well as general surgery. Multiple chest xrays and ultrasounds have been completed. This morning an echocardiogram was completed which revealed severe aortic stenosis with peak/mean gradient 76/43 mmHg and max velocity 4.35 m/sec, mild aortic regurgitation, mild mitral regurgitation, mild to moderate tricuspid regurgitation, and large pericardial effusion with no clear tamponade physiology. Due to findings on echo consultation was placed to Dr. Shi for pericardial window. Review of Systems ROS was completed through review of chart as there is no family present and patient is unable/unwilling to answer questions - Cardiovascular Reports dyspnea on exertion, Reports shortness of breath Past Medical History Past Medical History: Atrial Fibrillation, Heart Failure, COPD, GI Bleed, Hyperlipidemia, Hypertension, Renal Disease, Sleep Apnea/CPAP/BIPAP Additional Past Medical History / Comment(s): Hiatal hernia, cateracts, diverticulosis, CPAP use, Falls, History of Any Multi-Drug Resistant Organisms: None Reported Past Surgical History: Heart Catheterization Additional Past Surgical History / Comment(s): Bilateral cataract surgery, ganglion cyst removed, EGD/colonoscopy, cardioversion Past Anesthesia/Blood Transfusion Reactions: No Reported Reaction Past Psychological History: No Psychological Hx Reported Smoking Status: Former smoker Past Alcohol Use History: Daily Past Drug Use History: None Reported - Past Family History Mother Family Medical History: Cancer Father Family Medical History: Cancer, Myocardial Infarction ([place]) Medications and Allergies Home Medications Medication Instructions Recorded Confirmed Type Albuterol Inhaler [Ventolin Hfa 1 - 2 puff INHALATION RT-Q4H PRN 08/18/18 06/26/23 History Inhaler] Apixaban [Eliquis] 5 mg PO BID 08/18/18 06/26/23 History Ipratropium-Albuterol Nebulize 3 ml INHALATION RT-QID PRN 08/18/18 06/26/23 History [Duoneb 0.5 mg-3 mg/3 ml Soln] Metoprolol Tartrate 25 mg PO TID 08/18/18 06/26/23 History Montelukast [Singulair] 10 mg PO HS 08/18/18 06/26/23 History Atorvastatin [Lipitor] 80 mg PO HS 02/12/23 06/26/23 History Budesonide [Pulmicort] 0.5 mg INHALATION RT-BID 02/12/23 06/26/23 History Cyanocobalamin (Vitamin B-12) 1,000 mcg PO HS 02/12/23 06/26/23 History [Vitamin B-12] Famotidine [Pepcid] 20 mg PO DAILY 02/12/23 06/26/23 History Gabapentin [Neurontin] 100 mg PO BID@1300,2100 02/12/23 06/26/23 History Gabapentin [Neurontin] 200 mg PO DAILY@0800 02/12/23 06/26/23 History allopurinoL [Zyloprim] 100 mg PO HS 02/12/23 06/26/23 History Torsemide [Demadex] 40 mg PO DAILY 30 Days #30 tablet 02/16/23 06/26/23 Rx Ketoconazole 2% Shampoo [Nizoral] 1 applic TOPICAL Q2D 06/17/23 06/26/23 History Omalizumab [Xolair] 300 mg SQ Q28H 06/17/23 06/26/23 History Thiamine [Vitamin B-1] 100 mg PO DAILY@1200 06/17/23 06/26/23 History Cinacalcet [Sensipar] 30 mg PO DAILY #60 tab 06/19/23 06/26/23 Rx Allergies Allergy/AdvReac Type Severity Reaction Status Date / Time No Known Allergies Allergy Verified 06/17/23 11:41 Surgical - Exam Vital Signs Pulse Resp BP Pulse Ox 74 12 83/69 92 L 06/26/23 12:31 06/26/23 12:31 06/26/23 12:31 06/26/23 12:31 CONSTITUTIONAL: Awake and alert, appears comfortable, no pain, no acute distress ENT: Moist mucous membranes without oral lesions present NECK: No masses, no bruits, trachea midline RESPIRATORY: Lungs sounds diminished bilaterally. Respirations even, nonlabored. Currently on bipap, FiO2 75%, IPAP 12, EPAP 6 CARDIOVASCULAR: S1, S2 present, systolic murmur present. Irregular rate and rhythm, atrial fibrillation on telemetry. Palpable peripheral pulses bilaterally. No edema present. No calf pain or tenderness noted GASTROINTESTINAL: Abdomen soft, nontender, nondistended without masses or organomegaly noted. There is no rebound or guarding present. Active bowel sounds present 4 quadrants. GENITOURINARY: Deferred INTEGUMENTARY: Skin is warm and dry NEUROLOGIC: Cranial nerves II through XII intact, normal coordination, no obvious motor or sensory deficits, speech is normal MUSKULOSKELETAL: Able to move all extremities, strength equal bilaterally, normal posture PSYCHIATRIC: Alert, flat affect, not answering questions Results - Labs 06/29/23 05:00 06/29/23 05:00 Abnormal Lab Results - Last 24 Hours (Table) 06/27/23 06/28/23 06/29/23 Range/Units 15:15 08:30 05:00 WBC 13.7 H (3.8-10.6) k/uL MCV 101.9 H (80.0-100.0) fL Neutrophils # 12.3 H (1.3-7.7) k/uL Lymphocytes # 0.5 L (1.0-4.8) k/uL BUN (9-20) mg/dL Creatinine (0.66-1.25) mg/dL Glucose (74-99) mg/dL Vitamin B12 >3600.0 H (200.0-944.0) pg/mL Procalcitonin 0.47 H (0.02-0.09) ng/mL 06/29/23 Range/Units 05:00 WBC (3.8-10.6) k/uL MCV (80.0-100.0) fL Neutrophils # (1.3-7.7) k/uL Lymphocytes # (1.0-4.8) k/uL BUN 117 H* (9-20) mg/dL Creatinine 3.83 H (0.66-1.25) mg/dL Glucose 163 H (74-99) mg/dL Vitamin B12 (200.0-944.0) pg/mL Procalcitonin (0.02-0.09) ng/mL Diabetes panel 06/29/23 Range/Units 05:00 Sodium 143 (137-145) mmol/L Potassium 4.1 (3.5-5.1) mmol/L Chloride 102 (98-107) mmol/L Carbon Dioxide 28 (22-30) mmol/L BUN 117 H* (9-20) mg/dL Creatinine 3.83 H (0.66-1.25) mg/dL Glucose 163 H (74-99) mg/dL Calcium 9.5 (8.4-10.2) mg/dL Calcium panel 06/29/23 Range/Units 05:00 Calcium 9.5 (8.4-10.2) mg/dL Pituitary panel 06/29/23 Range/Units 05:00 Sodium 143 (137-145) mmol/L Potassium 4.1 (3.5-5.1) mmol/L Chloride 102 (98-107) mmol/L Carbon Dioxide 28 (22-30) mmol/L BUN 117 H* (9-20) mg/dL Creatinine 3.83 H (0.66-1.25) mg/dL Glucose 163 H (74-99) mg/dL Calcium 9.5 (8.4-10.2) mg/dL Adrenal panel 06/29/23 Range/Units 05:00 Sodium 143 (137-145) mmol/L Potassium 4.1 (3.5-5.1) mmol/L Chloride 102 (98-107) mmol/L Carbon Dioxide 28 (22-30) mmol/L BUN 117 H* (9-20) mg/dL Creatinine 3.83 H (0.66-1.25) mg/dL Glucose 163 H (74-99) mg/dL Calcium 9.5 (8.4-10.2) mg/dL - Imaging Chest x-ray: report reviewed, image reviewed Additional studies: Echocardiogram reviewed with Dr. Shi Assessment and Plan Assessment: Pericardial effusion without evidence of tamponade Acute hypoxemic and hypercapnic respiratory failure requiring BiPAP A. fib with RVR Shortness of breath, secondary to above Severe aortic stenosis, peak/mean gradient 76/43 mmHg and max velocity 4.35 m/sec History of atrial fibrillation status post cardioversion on eliquis for anticoagulation Chronic heart failure Previous tobacco dependence COPD PIPPA with home cpap use Daily alcohol use Hypertension Hyperlipidemia Chronic kidney disease GIB Plan: The patient was seen and examined with Dr. Shi. Chart/diagnostics were reviewed. Patient appears critically ill, not communicating well. Currently on IV lasix, levo, amio, precedex. Remains on bipap. Will plan to drain pericardial fluid today. BiPAP management per pulmonology. Wean pressors as tolerated. A. fib management per cardiology. More recommendations to follow. Thank you Dr. Abdi for this consult, we will continue to follow along with you. I have personally seen and examined the patient, performed the documentation and the assessment and plan as written. Number of minutes spent on the visit: 30. Daine Lacy NP-C
[2023-06-29] MEDS ORDERED: niCARdipine 20 MG in SODIUM CHLORIDE 0.9% 192 ML IV STA (12:47)
[2023-06-29] MEDS ORDERED: DILTIAZEM DRIP BOLUS FROM BAG 1 MG SOLN IV STA (12:47)
[2023-06-29] MEDS: DILTIAZEM 125 MG in SODIUM CHLORIDE 0.9% 100 ML IV STA (13:21)
[2023-06-29] MEDS: METOPROLOL TARTRATE 5 MG/5 ML VIAL IVP PRN ×2 (14:07→22:32)
--- NOTE | 2023-06-29 14:48 | P.PN ---
Subjective Progress Note Date: 06/29/23 CHIEF COMPLAINT: Gallbladder left thickening HISTORY OF PRESENT ILLNESS: Patient in the ICU on BiPAP. Denies any abdominal pain. No nausea or vomiting. Patient scheduled for pericardiocentesis with cardiothoracic surgery today. Patient is not stable for HIDA scan at this time. Afebrile. Tachycardic. WBC 13.7 LFTs normal yesterday PHYSICAL EXAM: VITAL SIGNS: Reviewed. GENERAL: Well-developed in no acute distress. ABDOMEN: Soft. obese. Nondistended. Nontender. NEUROLOGIC: lethargic ASSESSMENT: 1. Gallbladder wall thickening 2. Respiratory failure 3. Pericardial effusion PLAN: -Patient scheduled for pericardiocentesis today with cardiothoracic surgery -Continue antibiotics -HIDA scan on hold until patient is medically stable Physician Mental Health Advanced Practice Nurse note has been reviewed by physician. Signing provider agrees with the documented findings, assessment, and plan of care. I have personally seen and examined the patient, reviewed the FINANCIAL AID ADMINISTRATOR /PAs history, exam and MDM and agree with the assessment and plan as written. Based on total visit time, I have performed more than 50% of the visit. As above: Patient was found to have a pericardial effusion. Plans are for pericardiocentesis today. Patient was awake enough earlier that I was able to ask him if he had abdominal pain and he denied. Still no right upper quadrant tenderness. We'll reassess tomorrow. Hold HIDA scan until stable or until we have a more reliable exam. Objective - Vital Signs Vital signs: Vital Signs Temp 99.2 F 06/29/23 08:00 Pulse 115 H 06/29/23 10:30 Resp 24 06/29/23 10:30 BP 103/79 06/29/23 10:30 Pulse Ox 93 L 06/29/23 10:30 FiO2 75 06/29/23 07:46 Intake & Output 06/28/23 06/29/23 06/29/23 18:59 06:59 18:59 Intake Total 669.266 500.279 180 Output Total 2450 2320 500 Balance -1780.734 -1819.721 -320 Weight 127.4 kg Intake: IV 120 130 180 0.9NS 120 130 30 cefTRIAXone 2 gm In 50 Sodium Chloride 0.9% 50 ml @ 100 mls/hr IVPB Q24HR [facility] Rx#:[id number] metroNIDAZOLE-NS PMX 500 100 mg In Saline 1 100ml.bag @ 100 mls/hr IVPB Q8HR [facility] Rx#:[id number] Intake, IV Titration 549.266 370.279 Amount Dexmedetomidine/0.9% NaCl 224.606 282.612 (Pmx) 400 mcg In Empty Bag 1 bag @ 0.2 MCG/KG/HR 5.33 mls/hr IV .[id number] [facility] Rx#:[id number] Furosemide 100 mg In 100 87.667 Sodium Chloride 0.9% 90 ml @ 10 MG/HR 10 mls/hr IV .Q10H [facility] Rx#: [id number] Norepinephrine 4 mg In 74.660 Sodium Chloride 0.9% 250 ml @ 0.03 MCG/KG/MIN 12. 184 mls/hr IV .[id number] [facility] Rx#:[id number] cefTRIAXone 2 gm In 50 Sodium Chloride 0.9% 50 ml @ 100 mls/hr IVPB Q24HR [facility] Rx#:[id number] metroNIDAZOLE-NS PMX 500 100 mg In Saline 1 100ml.bag @ 100 mls/hr IVPB Q8HR [facility] Rx#:[id number] Output: Urine 2450 2320 500 Other: Voiding Method Indwelling Catheter Indwelling Catheter Indwelling Catheter ABP, PAP, CO, CI - Last Documented Arterial Blood Pressure 93/57 - Labs CBC & Chem 7: 06/29/23 05:00 06/29/23 05:00 Labs: Abnormal Lab Results - Last 24 Hours (Table) 06/27/23 06/28/23 06/29/23 Range/Units 15:15 08:30 05:00 WBC 13.7 H (3.8-10.6) k/uL MCV 101.9 H (80.0-100.0) fL Neutrophils # 12.3 H (1.3-7.7) k/uL Lymphocytes # 0.5 L (1.0-4.8) k/uL BUN (9-20) mg/dL Creatinine (0.66-1.25) mg/dL Glucose (74-99) mg/dL Vitamin B12 >3600.0 H (200.0-944.0) pg/mL Procalcitonin 0.47 H (0.02-0.09) ng/mL 06/29/23 Range/Units 05:00 WBC (3.8-10.6) k/uL MCV (80.0-100.0) fL Neutrophils # (1.3-7.7) k/uL Lymphocytes # (1.0-4.8) k/uL BUN 117 H* (9-20) mg/dL Creatinine 3.83 H (0.66-1.25) mg/dL Glucose 163 H (74-99) mg/dL Vitamin B12 (200.0-944.0) pg/mL Procalcitonin (0.02-0.09) ng/mL
[2023-06-29] MEDS: FUROSEMIDE 100 MG in SODIUM CHLORIDE 0.9% 90 ML IV SCH (15:40)
--- NOTE | 2023-06-29 17:59 | P.OP ---
Date of Procedure: 06/29/23 Preoperative Diagnosis: Large pericardial effusion, tamponade physiology Postoperative Diagnosis: 1 L of bloody pericardial effusion Procedure(s) Performed: Bedside pericardial drain insertion under echo guidance Implants: Triple-lumen central line Anesthesia: local Surgeon: Keanu Shi Pathology: other (Pericardial fluid for cytology) Condition: stable Disposition: ICU Indications for Procedure: Large pericardial effusion on echo along with a known moderate to severe aortic valve stenosis and atrial fibrillation with rapid ventricular response Operative Findings: 1 L of bloody nonclotting pericardial effusion Description of Procedure: We obtained consent from the . Patient received some Haldol and Ativan for his confusion and combativeness. I had done a quick echo that showed a direct path in the left precordial region just below the nipple to a large pericardial effusion. The area was prepped and draped using ChloraPrep. Local anesthesia was secured with 5 mL of lidocaine 2%. With a 22-gauge finding needle was able to establish path to the pericardial fluid. Subsequently and using Seldinger technique I placed a wire into the pericardial space was confirmed by echocardiography. Subsequently the tract was dilated and a triple-lumen catheter was inserted without difficulty. We aspirated a total of 1 L of bloody pericardial effusion with an echo essentially showing trivial residual fluid. Patient tolerated procedure well. Fluid was sent for cytology cell count and biochemistry. The drain was secured to the skin with a silk 2-0 suture and dressed sterilely.
[2023-06-29 19:51] LABS: Glucose,Whole Blood 178 mg/dL (70-110)
[2023-06-29] MEDS: ATORVASTATIN 80 MG TAB PO SCH (20:15)
[2023-06-29] MEDS: MONTELUKAST 10 MG TAB PO SCH (20:15)
[2023-06-29] MEDS: NOREPINEPHRINE 8 MG in SODIUM CHLORIDE 0.9% 250 ML IV SCH (20:40)
--- NOTE | 2023-06-29 22:08 | P.PN ---
Subjective Progress Note Date: 06/29/23 This is a pleasant 73 years old male with multiple medical problems including Atrial Fibrillation, Heart Failure, COPD, GI Bleed, Hyperlipidemia, Hypertension, chronic kidney disease/CPAP/BIPAP,Hiatal hernia, cateracts, diverticulosis, CPAP use, Falls, Patient presents because transferred from [facility] for respiratory failure, on arrival he was hypotensive. He was recently in the hospital 06/17-06/19 for hypercalcemia and he was discharged on Sensipar which is thought secondary to hyperparathyroidism. Patient currently lives in the ICU using the BiPAP machine which limits history taken and provide information on the top of that patient is confused but he follows commands appropriately. He can answer some questions like he says he has no pain. He is asking if he can smoke now we explained for him he cannot declines the nicotine patch. Patient currently mildly tachycardic around 108, blood pressure is better 101/81 while he is on pressors. He is on BiPAP machine and he had a temperature of 98.6. showing creatinine of 5.2 with baseline 2.2-2.9, calcium slightly elevated at 11.5. WBC is 15.7 while on steroids, while rest of CBC is unremarkable TSH is elevated at 4.7 but free T4 is normal [place] 0[place] [address] Ultrasound showing on obstructive uropathy but there is acute cholecystitis with thickened wall. Chest x-ray is suspicious for cardiomegaly and pulmonary edema EKG showing A. fib with rate of 82 b per minute. Patient currently in the ICU on amiodarone drip, Lasix drip at 10 mg per hour , levophed at 0.03 and Solu-Medrol 60 mg, Precedex and IV thiamine 06/28/2023 patient cannot get off the BiPAP overnight and early this morning, he desaturates easily. He remains on amiodarone drip, Lasix drip at 10 mg per hour, and a small dose of levophed at 0.03 and Precedex and thiamine. Distal, not tolerate oral medication and his Eliquis switch to Lovenox 120 mg once daily because of his high creatinine This pH 7.3, pCO2 50 and PaO2 of 76, which is a slightly better than yesterday. Creatinine coming down to 4.4. Ca is also coming down 10.1. WBC still elevated at 13.9 but also patient on steroids. General surgery R following for acute cholecystitis, HIDA scan is ordered, currently on Flagyl and Rocephin 06/29/2023 Patient evaluated today in the ICU. Has been transitioned to airvo. HIDA scan has been placed on hold today as there is findings of large pericardial effusion and cardiothoracic has been consulted. Echocardiogram shows normal LV function, with severe aortic stenosis, mild to moderate TR, mild MR, mild pulmonary hypertension, large pericardial effusion with no clear tamponade. He also had chest xray showing cardiomegaly with mild bibasilar effusions. Mild at the right base. Correlate for CHF. Small amount of atelectasis at the right base. Patient will be going for a pericardial window today. He continues on amiodarone gtt, continues on IV Lasix at 10 mg per hour, he is also on precedex and levophed. Patient is anticoagulated with lovenox. He is on IV ceftriaxone and IV flagyl. White blood cell count today is 13.7, BUN 117, creatinine 3.83. Procalcitonin 0.47. He is afebrile, heart rate in the 110s. Blood pressure marginal 84/57. Review of Systems Patient is unable to give a ROS at this time due to respiratory distress on airvo and he is lethargic today. Not responding much to questions. Physical Examination -GENERAL: The patient is awake using Airvo, mildly confused. Obese HEENT: Pupils are round and equally reacting to light. EOMI. No scleral icterus. No conjunctival pallor. Normocephalic, atraumatic. No pharyngeal erythema. No thyromegaly. CARDIOVASCULAR: S1 and S2 present. No murmurs, rubs, or gallops. -PULMONARY: Chest is limited air entry on both sides, slightly better than yesterday, no wheezing , no crackles. Mildly tachypneic while he is on airvo. ABDOMEN: Soft, nontender, nondistended, normoactive bowel sounds. No palpable organomegaly. MUSCULOSKELETAL: No joint swelling or deformity. EXTREMITIES: No cyanosis, clubbing, or pedal edema. NEUROLOGICAL: Gross neurological examination did not reveal any focal deficits. Diffuse weakness. SKIN: No rashes. no petechiae. Assessment: Acute COPD exacerbation Acute on chronic diastolic CHF with a preserved ejection fraction Large pericardial effusion with no evidence of tamponade Acute hypoxemic hypercapnic respiratory failure, secondary to above Possible acute cholecystitis pending HIDA scan Shock hypovolemic maintained on levophed A. fib and RVR Acute kidney injury secondary to ATN/Cardiorenal syndrome Chronic kidney disease stage IV Moderate to severe aortic stenosis and moderate pulmonary hypertension Hypercalcemia secondary to hyperparathyroidism on treatment Alcohol use disorder Nicotine dependence Chronic hypoxic respiratory failure Morbid obesity with BMI 41.7. Full Code Plan: Continue with amiodarone drip, Continue with Lasix drip at 10 mg per hour Continue with levophed at 0.03 Continue with Solu-Medrol 60 mg General surgery R following for acute cholecystitis Antibiotic started with Rocephin and Flagyl Cardiothoracic consultation for pericardial window Continue monitoring for alcohol withdrawal and maintain ativan for DTs Several consultants of the case with the pulmonary/critical care team, nephrology, neurology. Labs and medication were reviewed.. Continue same treatment. Continue with symptomatic treatment. Resume home medication. Monitor labs and vitals. DVT and GI prophylaxis. Further recommendations as per clinical course of the patient DVT prophylaxis: Lovenox GI Prophylaxis: Pepcid PT/OT: differed Prognosis is guarded The impression and plan of care has been dictated by Jasmyn Anderson Nurse Practitioner as directed. Dr. Leyla MD I have performed a history and physical examination and medical decision making of this patient, discussed the same with the dictator, and agree with the dictators assessment and plan as written, documented as a scribe. Based on total visit time, I have performed more than 50% of this visit. Objective - Vital Signs Vital signs: Vital Signs Temp 99.2 F 06/29/23 12:00 Pulse 130 H 06/29/23 19:52 Resp 35 H 06/29/23 19:00 BP 103/79 06/29/23 10:00 Pulse Ox 94 L 06/29/23 19:00 FiO2 100 06/29/23 19:52 Intake & Output 06/29/23 06/29/23 06/30/23 06:59 18:59 06:59 Intake Total 500.279 850.953 Output Total 2320 2610 Balance -7809.721 -5679.736 Weight 127.4 kg Intake: IV 130 370 0.9NS 130 120 cefTRIAXone 2 gm In 50 Sodium Chloride 0.9% 50 ml @ 100 mls/hr IVPB Q24HR [facility] Rx#:[id number] metroNIDAZOLE-NS PMX 500 200 mg In Saline 1 100ml.bag @ 100 mls/hr IVPB Q8HR [facility] Rx#:[id number] Intake, IV Titration 370.279 480.953 Amount Dexmedetomidine/0.9% NaCl 282.612 14.457 (Pmx) 400 mcg In Empty Bag 1 bag @ 0.2 MCG/KG/HR 5.33 mls/hr IV .[id number] [facility] Rx#:[id number] Furosemide 100 mg In 87.667 100 Sodium Chloride 0.9% 90 ml @ 10 MG/HR 10 mls/hr IV .Q10H [facility] Rx#: [id number] Norepinephrine 4 mg In 366.496 Sodium Chloride 0.9% 250 ml @ 0.03 MCG/KG/MIN 12. 184 mls/hr IV .[id number] [facility] Rx#:[id number] Output: Drainage 1000 Left Chest 1000 Urine 2320 1610 Other: Voiding Method Indwelling Catheter Indwelling Catheter ABP, PAP, CO, CI - Last Documented Arterial Blood Pressure 99/59 - Labs CBC & Chem 7: 06/29/23 05:00 06/29/23 05:00 Labs: Abnormal Lab Results - Last 24 Hours (Table) 06/29/23 06/29/23 06/29/23 Range/Units 05:00 05:00 19:50 WBC 13.7 H (3.8-10.6) k/uL MCV 101.9 H (80.0-100.0) fL Neutrophils # 12.3 H (1.3-7.7) k/uL Lymphocytes # 0.5 L (1.0-4.8) k/uL BUN 117 H* (9-20) mg/dL Creatinine 3.83 H (0.66-1.25) mg/dL Glucose 163 H (74-99) mg/dL POC Glucose (mg/dL) 178 H (70-110) mg/dL Assessment and Plan Time with Patient: Greater than 30
[2023-06-30] MEDS: FUROSEMIDE 100 MG in SODIUM CHLORIDE 0.9% 90 ML IV SCH ×2 (00:16→10:34)
[2023-06-30] MEDS: DILTIAZEM 125 MG in SODIUM CHLORIDE 0.9% 100 ML IV STA (01:27)
[2023-06-30] MEDS: NOREPINEPHRINE 8 MG in SODIUM CHLORIDE 0.9% 250 ML IV SCH ×2 (02:20→18:35)
[2023-06-30 04:26] LABS: Glucose,Whole Blood 194 mg/dL (70-110)
[2023-06-30 04:40] LABS: Basophils % (A) 0 %; Eosinophils % (A) 0 %; HCT 47.6 % (39.0-53.0); Hypochromasia Slight; Lymphocytes # (A) 0.4 k/uL (1.0-4.8); Lymphocytes % (A) 3 %; MCH 32.3 pg (25.0-35.0); MCHC 31.5 g/dL (31.0-37.0); MCV 102.3 fL (80.0-100.0); Macrocytosis Slight; Mean Platelet Volume 9.6; Monocytes # (A) 1.5 k/uL (0-1.0); Monocytes % (A) 10 %; Neutrophils # (A) 12.8 k/uL (1.3-7.7); Neutrophils % (A) 85 %; Platelet Count 182 k/uL (150-450); RBC 4.66 m/uL (4.30-5.90); WBC 15.1 k/uL (3.8-10.6)
[2023-06-30 04:53] LABS: African American GFR (CKD) 18 (>60 ml/min/1.73 sqM); Anion Gap 14 mmol/L; Carbon Dioxide 28 mmol/L (22-30); Chloride 105 mmol/L (98-107); Glucose 193 mg/dL (74-99); Non-African American GFR(CKD) 15 (>60 ml/min/1.73 sqM); Potassium 3.3 mmol/L (3.5-5.1); Sodium 147 mmol/L (137-145)
[2023-06-30 05:13] LABS: Blood Urea Nitrogen 122 mg/dL (9-20)
[2023-06-30 05:50] LABS: Appearance,BF Bloody (Clear)
[2023-06-30] MEDS: MIDODRINE 5 MG TAB PO SCH ×3 (07:23→16:45)
[2023-06-30] MEDS: HEPARIN SODIUM,PORCINE 5,000 UNIT/ML 1 ML VIAL SQ SCH ×2 (08:55→21:05)
[2023-06-30] MEDS: methylPREDNISolone SOD SUCCI 125 MG/2 ML VIAL IV SCH ×2 (08:55→16:45)
[2023-06-30] MEDS: FAMOTIDINE 20 MG/2 ML VIAL IV SCH (08:56)
[2023-06-30 08:58] LABS: Amylase, Fluid Source Pericardial Fluid; Amylase,Body Fluid 15 U/L; Cholesterol,Body Fluid 105 mg/dL; Glucose, Body Fluid 145 mg/dL; Total Protein, Body Fluid >3600 mg/dL
[2023-06-30] MEDS: metroNIDAZOLE-NS PMX 500 MG in SALINE 1 100ML.BAG IVPB SCH ×2 (08:58→16:45)
[2023-06-30] MEDS: IPRATROPIUM-ALBUTEROL 3 ML NEB INHALATION SCH ×4 (09:04→20:19)
[2023-06-30] MEDS: BUDESONIDE 0.5 MG/2 ML NEBU INHALATION SCH ×2 (09:05→20:19)
--- NOTE | 2023-06-30 09:19 | P.PN ---
Subjective Progress Note Date: 06/30/23 Principal diagnosis: Pericardial effusion, tamponade physiology, acute hypoxemic and hypercapnic respiratory failure requiring BiPAP, a fib with RVR. History of severe aortic stenosis, peak/mean gradient 76/43 mmHg and max velocity 4.35 m/sec, atrial fibrillation status post cardioversion on eliquis for anticoagulation, chronic heart failure, previous tobacco dependence, COPD, PIPPA with home cpap use, daily alcohol use, hypertension, hyperlipidemia, chronic kidney disease, GIB POD #1 bedside pericardial drain insertion under echo guidance with removal of 1 L of bloody pericardial effusion sent for culture and cytology The patient was seen and examined at the bedside with Dr. Rivers this morning sitting up in bed in no acute distress. Currently on airvo. Hemodynamics better controlled after removal of 1 L of fluid yesterday. Remains on IV levo. Remains confused and occasionally agitated. Objective - Vital Signs Vital signs: Vital Signs Temp 99.0 F 06/30/23 08:00 Pulse 91 06/30/23 08:00 Resp 19 06/30/23 08:00 BP 95/65 06/30/23 06:30 Pulse Ox 95 06/30/23 08:00 FiO2 95 06/30/23 04:15 Intake & Output 06/29/23 06/30/23 06/30/23 18:59 06:59 18:59 Intake Total 999.013 3761.356 10 Output Total 2610 1425 60 Balance -1759.047 -309.644 -50 Weight 119.7 kg Intake: IV 370 110 10 0.9NS 120 110 10 cefTRIAXone 2 gm In 50 Sodium Chloride 0.9% 50 ml @ 100 mls/hr IVPB Q24HR [facility] Rx#:[id number] metroNIDAZOLE-NS PMX 500 200 mg In Saline 1 100ml.bag @ 100 mls/hr IVPB Q8HR [facility] Rx#:[id number] Intake, IV Titration 681.495 6861.356 Amount Amiodarone 450 mg In 235.56 Dextrose 5% in Water 250 ml @ 0.5 MG/MIN 16.667 mls/hr IV .Q15H [facility] Rx#: [id number] Dexmedetomidine/0.9% NaCl 14.457 (Pmx) 400 mcg In Empty Bag 1 bag @ 0.2 MCG/KG/HR 5.33 mls/hr IV .[id number] [facility] Rx#:[id number] Diltiazem 125 mg In 90.75 Sodium Chloride 0.9% 100 ml @ 7.5 MG/HR 7.5 mls/hr IV .[id number] [facility] Rx#: [id number] Furosemide 100 mg In 100 86 Sodium Chloride 0.9% 90 ml @ 10 MG/HR 10 mls/hr IV .Q10H [facility] Rx#: [id number] Norepinephrine 4 mg In 366.496 254 Sodium Chloride 0.9% 250 ml @ 0.03 MCG/KG/MIN 12. 184 mls/hr IV .[id number] [facility] Rx#:[id number] Norepinephrine 8 mg In 339.046 Sodium Chloride 0.9% 250 ml @ 0.03 MCG/KG/MIN 7. 396 mls/hr IV .Q24H [facility] Rx#:[id number] Output: Drainage 1000 Left Chest 1000 Urine 1610 1425 60 Other: Voiding Method Indwelling Catheter Indwelling Catheter ABP, PAP, CO, CI - Last Documented Arterial Blood Pressure 94/53 - Exam CONSTITUTIONAL: Appears comfortable, no acute distress RESPIRATORY: Lungs sounds diminished bilaterally. Respirations even, nonlabored. Currently on airvo with oxygen saturation 94% CARDIOVASCULAR: S1, S2 present. Irregular rate and rhythm, atrial fibrillation on telemetry. Palpable peripheral pulses bilaterally. No edema present. No calf pain or tenderness noted GASTROINTESTINAL: Abdomen soft, nontender, nondistended. Active bowel sounds p resent 4 quadrants. GENITOURINARY: Gordon present draining clear, yellow urine. Output 3035 mL in the last 24 hours INTEGUMENTARY: Skin is warm and dry NEUROLOGIC: Cranial nerves II through XII intact MUSKULOSKELETAL: Able to move all extremities, strength equal bilaterally PSYCHIATRIC: Confused, agitated at times INVASIVE LINES AND TUBES: Triple lumen pericardial drain present under the left breast, capped - Allied health notes Allied health notes reviewed: nursing - Labs CBC & Chem 7: 06/30/23 04:30 06/30/23 04:30 Labs: Abnormal Lab Results - Last 24 Hours (Table) 06/29/23 06/29/23 06/30/23 Range/Units 17:30 19:50 04:22 WBC (3.8-10.6) k/uL MCV (80.0-100.0) fL Neutrophils # (1.3-7.7) k/uL Lymphocytes # (1.0-4.8) k/uL Monocytes # (0-1.0) k/uL Sodium (137-145) mmol/L Potassium (3.5-5.1) mmol/L BUN (9-20) mg/dL Creatinine (0.66-1.25) mg/dL Glucose (74-99) mg/dL POC Glucose (mg/dL) 178 H 194 H (70-110) mg/dL Fluid Appearance Bloody A (Clear) 06/30/23 06/30/23 Range/Units 04:30 04:30 WBC 15.1 H (3.8-10.6) k/uL MCV 102.3 H (80.0-100.0) fL Neutrophils # 12.8 H (1.3-7.7) k/uL Lymphocytes # 0.4 L (1.0-4.8) k/uL Monocytes # 1.5 H (0-1.0) k/uL Sodium 147 H (137-145) mmol/L Potassium 3.3 L (3.5-5.1) mmol/L BUN 122 H* (9-20) mg/dL Creatinine 3.72 H (0.66-1.25) mg/dL Glucose 193 H (74-99) mg/dL POC Glucose (mg/dL) (70-110) mg/dL Fluid Appearance (Clear) Microbiology - Last 24 Hours (Table) 06/29/23 17:30 Gram Stain - Preliminary Pericardial Fluid - Imaging and Cardiology Chest x-ray: image reviewed Assessment and Plan Assessment: Pericardial effusion without evidence of tamponade status post bedside pericardial drain insertion under echo guidance with removal of 1 L of bloody pericardial effusion sent for culture and cytology Acute hypoxemic and hypercapnic respiratory failure requiring BiPAP A. fib with RVR Shortness of breath, secondary to above Severe aortic stenosis, peak/mean gradient 76/43 mmHg and max velocity 4.35 m/sec History of atrial fibrillation status post cardioversion on eliquis for anticoagulation Chronic heart failure Previous tobacco dependence COPD PIPPA with home cpap use Daily alcohol use Hypertension Hyperlipidemia Chronic kidney disease GIB Plan: We will drain pericardium again today Airvo/BiPAP management per pulmonology Wean pressors as tolerated A. fib management per cardiology More recommendations to follow.
[2023-06-30] MEDS ORDERED: Potassium Replacement Protocol 1 EACH MISC MISCELLANE PRN (09:44)
[2023-06-30] MEDS: FOLIC ACID 1 MG TAB PO SCH (09:46)
[2023-06-30] MEDS: CINACALCET 30 MG TAB PO SCH (09:46)
[2023-06-30] MEDS: THIAMINE 100 MG/ML 2 ML VIAL IVP SCH (10:25)
[2023-06-30] MEDS: POTASSIUM CHLORIDE 10 MEQ in WATER FOR INJECTION 1 100ML.BAG IVPB SCH ×4 (10:26→14:09)
[2023-06-30] MEDS: AMIODARONE 200 MG TAB PO SCH ×2 (10:45→21:04)
--- NOTE | 2023-06-30 11:00 | P.PN ---
Subjective Progress Note Date: 06/30/23 Principal diagnosis: Respiratory failure. Acute on chronic hypoxic and hypercapnic respiratory failure This is a 73-year-old white male with history of multiple medical problems i ncluding chronic congestive heart failure, COPD, chronic kidney disease, chronic hypoxic respiratory failure, obstructive sleep apnea syndrome, maintained on CPAP now patient was transferred from [facility] with 2 days history of increased shortness of breath. I have seen this patient in the past and his last evaluation in the hospital was on 02/16/2023. At that time the patient presented with acute on chronic hypoxic and hypercapnic respiratory failure with congestive heart failure and COPD. He should also had moderate severe aortic stenosis, and morbid obesity as well as chronic atrial fibrillation. Back then the patient was treated mostly aggressively with diuretics, and he was eventually discharged home after almost a week stay in the ICU. This time the patient has a very similar presentation, I saw the patient in the ER, and his is at bedside. Patient is now on BiPAP which I have adjusted to IPAP of 16 and EPAP 6, and he is also on 100% FiO2. ABG is pending, earlier venous ABG showed a pCO2 of 120 and pH of 7.01. After I evaluated the patient, I recommended immediate transfer to the ICU ABG, ultrasound of the chest, I cut down his IV fluid to KVO, started the patient on Lasix drip at 10 mg per hour. And explained to the that the patient may require intubation mechanical ventilation if his condition does not improve much and a short period of time. For low blood pressure may consider using norepinephrine, would definitely avoid using fluids at this point. Labs were reviewed chest x-ray was reviewed his BUN is 99 creatinine is 5.25, and his creatinine only a few days ago was 2.07. Apparently he is developing a worsening picture of chronic kidney disease. Could be cardiorenal. BNP level is 14,900 Reevaluated today on 06/27/2023, patient remains in the ICU, remains on Lasix drip at 10 mg per hour, amiodarone 0.5 mg/m for atrial fibrillation/RVR which she developed last night patient does have chronic history of atrial fibrillation remains on norepinephrine at 0.04 mcg/kg/m, he is on Precedex at 0.2 mcg/kg/hr, IV fluid at 20 mL per hour in the form of 0.9 normal saline. Blood pressure is noted to be borderline. Hence patient had a left subclavian triple-lumen catheter placed and a left radial arterial line placement. Repeat ABG this morning continues to show significant metabolic and respiratory acidosis pO2 of 79 pCO2 62 pH of 7.21, potassium is up to 5.19, patient was given 1 amp of bicarb for his acidosis. His BUN is 107 creatinine 5.17, slightly better compared to yesterday, patient is being evaluated by nephrology. Remains on BiPAP at 16/6/75% FiO2. And overall his clinical status is critically ill/marginal. Patient is definitely high risk for intubation mechanical ventilation, the patient and his are both aware of this, however at this point I will hold on mechanically ventilated the patient. We'll continue BiPAP, continue Lasix drip, and continue pressors patient may eventually require hemodialysis. Ultrasound of the chest showed small bilateral pleural effusions left more so than right, the left sided pocket is not large enough to consider safe left sided thoracentesis. Patient was reevaluated today on 06/2023, remains in the ICU, remains on Lasix drip at 10 mg per hour, remains on BiPAP at 12/6/75%. Patient is still requiring Precedex at 0.6 mcg/kg/h, norepinephrine at 0.03 mcg/kg/m. Patient is negative balance over the last 24 hours about 2 L. And he is steadily improving but remains critically ill, and simply requiring pressors. ABG showed a pO2 of 76 pCO2 of 50 pH of 7.34, significantly improved compared to his initial ABG on admission where his pCO2 was in the 120 range. Patient remains on Rocephin and Flagyl, his CT of the abdomen raised the possibility of acute cholecystitis, but clinically I do not see any evidence of cholecystitis, the patient has no pain or tenderness in the right upper quadrant. Being considered for a HIDA scan. CT of the brain came back negative for acute process. WBC count today is 13.9 hemoglobin 15.4. Platelets are 226, basic metabolic profile is normal BUN is 111 creatinine is down to 4.44 improving in spite of aggressive diuresis on this patient. If her enzymes are basically normal. Chest x-ray this morning showed cardiomegaly, pulmonary vascular congestion, bilateral pleural effusions, however based on ultrasound, the left-sided pleural effusion was not large enough to consider safe thoracentesis Progress note dated 06/29/2023. 73-year-old male seen in the intensive care unit, room 262. The patient is scheduled to have a pericardial window done today, June 29. Briefly, the patient was admitted to the hospital June 26, for CHF, acute mental status changes, and a pericardial effusion. The patient was admitted to the intensive care unit, on the day of admission. The patient's been between BiPAP, with settings of 12/6, and 75%, or AIRVO, at 60 L/m with an FiO2 of 80%. The patient is currently on norepinephrine at 2 mcg/m, dexmedetomidine at 0.3 mcg/kg/h, amiodarone at 0.5 mg/m, a Lasix drip at 10 mg an hour, and saline at KVO. White count is 13.7, hemoglobin 16, hematocrit 48.9, and a platelet count of 203,000. Sodium 143, potassium 4.1, chlorides 102, CO2 28, BUN 117, and creatinine 3.83. Pro-calcitonin level is 0.47, from yesterday. Chest x-ray shows cardiomegaly, with bibasilar effusions. Progress note dated 06/30/2023. 73-year-old male with a history of pericardial effusion. The patient had a bedside procedure done yesterday, to drain the pericardial effusion. About 1 L of fluid was removed. Currently, he's on AIRVO, at 60 L/m, with an FiO2 of 94%. He continues on Lasix drip at 10 mg an hour, norepinephrine at 7.1 mcg/m, amiodarone at 0.5 mg/m, and a Cardizem drip of 7.5 mg an hour. The patient spent some time on BiPAP as well. White count 15.1, hemoglobin 15, hematocrit 47.6, and platelet count 182,000. Sodium 147, potassium 3.3, chlorides 105, CO2 28, BUN 122, and creatinine 3.72. Glucose 193. Calcium is 9.0. Chest x-ray shows a pericardial drain. There is some volume loss of the left lower lobe, and small bilateral pleural effusions. Objective - Vital Signs Vital signs: Vital Signs Temp 99.0 F 06/30/23 08:00 Pulse 94 06/30/23 09:30 Resp 31 H 06/30/23 09:30 BP 95/65 06/30/23 09:30 Pulse Ox 94 L 06/30/23 09:30 FiO2 94 06/30/23 09:05 Intake & Output 06/29/23 06/30/23 06/30/23 18:59 06:59 18:59 Intake Total 930.882 9257.356 70 Output Total 2610 1425 135 Balance -1759.047 -309.644 -65 Weight 119.7 kg Intake: IV 370 110 70 0.9NS 120 110 20 cefTRIAXone 2 gm In 50 50 Sodium Chloride 0.9% 50 ml @ 100 mls/hr IVPB Q24HR [facility] Rx#:[id number] metroNIDAZOLE-NS PMX 500 200 mg In Saline 1 100ml.bag @ 100 mls/hr IVPB Q8HR [facility] Rx#:[id number] Intake, IV Titration 141.378 4520.356 Amount Amiodarone 450 mg In 235.56 Dextrose 5% in Water 250 ml @ 0.5 MG/MIN 16.667 mls/hr IV .Q15H [facility] Rx#: [id number] Dexmedetomidine/0.9% NaCl 14.457 (Pmx) 400 mcg In Empty Bag 1 bag @ 0.2 MCG/KG/HR 5.33 mls/hr IV .[id number] [facility] Rx#:[id number] Diltiazem 125 mg In 90.75 Sodium Chloride 0.9% 100 ml @ 7.5 MG/HR 7.5 mls/hr IV .[id number] [facility] Rx#: [id number] Furosemide 100 mg In 100 86 Sodium Chloride 0.9% 90 ml @ 10 MG/HR 10 mls/hr IV .Q10H [facility] Rx#: [id number] Norepinephrine 4 mg In 366.496 254 Sodium Chloride 0.9% 250 ml @ 0.03 MCG/KG/MIN 12. 184 mls/hr IV .[id number] [facility] Rx#:[id number] Norepinephrine 8 mg In 339.046 Sodium Chloride 0.9% 250 ml @ 0.03 MCG/KG/MIN 7. 396 mls/hr IV .Q24H [facility] Rx#:[id number] Output: Drainage 1000 Left Chest 1000 Urine 1610 1425 135 Other: Voiding Method Indwelling Catheter Indwelling Catheter Indwelling Catheter ABP, PAP, CO, CI - Last Documented Arterial Blood Pressure 104/52 - Exam No acute distress, currently on AIRVO, Precedex has been weaned off. HEENT examination is grossly unremarkable. Neck supple. Full range of motion. No adenopathy thyromegaly or neck vein distention. Cardiovascular examination reveals regular rhythm rate. S1-S2 normal. No S3 or S4. No discernible murmur noted. Heart rate 94 bpm. Lungs reveal scattered rhonchi. Rest sounds equal bilaterally. Saturations are 94%. No wheezes or crackles. Abdomen soft bowel sounds are heard. No masses or tenderness. Extremities are intact. No cyanosis clubbing or edema. Skin is without rash or lesion. Neurologic examination reveals a confused white male. - Labs CBC & Chem 7: 06/30/23 04:30 06/30/23 04:30 Labs: Abnormal Lab Results - Last 24 Hours (Table) 06/29/23 06/29/23 06/30/23 Range/Units 17:30 19:50 04:22 WBC (3.8-10.6) k/uL MCV (80.0-100.0) fL Neutrophils # (1.3-7.7) k/uL Lymphocytes # (1.0-4.8) k/uL Monocytes # (0-1.0) k/uL Sodium (137-145) mmol/L Potassium (3.5-5.1) mmol/L BUN (9-20) mg/dL Creatinine (0.66-1.25) mg/dL Glucose (74-99) mg/dL POC Glucose (mg/dL) 178 H 194 H (70-110) mg/dL Fluid Appearance Bloody A (Clear) 06/30/23 06/30/23 Range/Units 04:30 04:30 WBC 15.1 H (3.8-10.6) k/uL MCV 102.3 H (80.0-100.0) fL Neutrophils # 12.8 H (1.3-7.7) k/uL Lymphocytes # 0.4 L (1.0-4.8) k/uL Monocytes # 1.5 H (0-1.0) k/uL Sodium 147 H (137-145) mmol/L Potassium 3.3 L (3.5-5.1) mmol/L BUN 122 H* (9-20) mg/dL Creatinine 3.72 H (0.66-1.25) mg/dL Glucose 193 H (74-99) mg/dL POC Glucose (mg/dL) (70-110) mg/dL Fluid Appearance (Clear) Microbiology - Last 24 Hours (Table) 06/29/23 17:30 Gram Stain - Final Pericardial Fluid Body Fluid Culture - Final Assessment and Plan Assessment: Acute on chronic hypoxemic and hypercapnic respiratory failure. Pericardial effusion, S/P pericardial window, 06/29/2023. Diastolic CHF. Acute on chronic kidney disease. Metabolic encephalopathy. Morbid obesity. Chronic atrial fibrillation, with paroxysmal atrial fibrillation/RVR. Moderately severe aortic stenosis. Obstructive sleep apnea syndrome. History of alcoholism. Hyperlipidemia. Plan: Plan dated 06/29/2023. The patient is scheduled to have a pericardial window, performed today, by cardiothoracic surgery. Otherwise, the patient remains critically ill in the intensive care unit, room 262. The patient's on norepinephrine at 2 mcg/m, dexmedetomidine 0.3 mcg/kg/h, amiodarone at 0.5 mg/m, and a Lasix drip at 10 mg an hour. The patient has been between BiPAP in the AIRVO. Currently he is on BiPAP. The patient came to the intensive care unit, on June 26. We will continue to follow the patient, and make recommendations along the way. Prognosis is certainly guarded. Labs, x-rays, and medications are all reviewed. Plan dated 06/30/2023. The patient had a bedside pericardial drain placed yesterday. About 1 L fluid was removed. The patient continues on Lasix drip at 10 mg an hour, norepinephrine at 7.1 mcg/m, amiodarone at 0.5 mg/m, and Cardizem drip at 7.5 mg an hour. The patient is between AIRVO, and BiPAP. Currently, he is on AIRVO at 60 L/m with an FiO2 of 94%. He we'll continue to follow the patient, and make recommendations along the way. Prognosis is certainly guarded. The fluid was sent to laboratory for analysis. Time with Patient: Greater than 30
--- NOTE | 2023-06-30 11:14 | P.PN ---
Subjective Progress Note Date: 06/30/23 CHIEF COMPLAINT: Gallbladder left thickening HISTORY OF PRESENT ILLNESS: Patient in the ICU on Airvo. Patient is sitting up. He is more awake and less confused. He denies any abdominal pain. He denies any nausea or vomiting. He is status post pericardiocentesis with cardiothoracic service. Afebrile. WBC is up from 13.7-15.1 hgb 15 platelets 182 sodium 147 potassium is 3.3 creatinine 3.72 PHYSICAL EXAM: VITAL SIGNS: Reviewed. GENERAL: Well-developed in no acute distress. ABDOMEN: Soft. obese. Nondistended. Nontender. No right upper quadrant tenderness with palpation ASSESSMENT: 1. Gallbladder wall thickening 2. Respiratory failure 3. Pericardial effusion PLAN: -Continue supportive care -Continue antibiotics -HIDA scan on hold until patient is medically stable Physician Filler Shredder Helper note has been reviewed by physician. Signing provider agrees with the documented findings, assessment, and plan of care. I have personally seen and examined the patient, reviewed the GEODETIC SURVEY DIRECTOR /PAs history, exam and MDM and agree with the assessment and plan as written. Based on total visit time, I have performed more than 50% of the visit. As above: The patient fairly alert. Denies abdominal pain. No tenderness on exam. Suspect gallbladder wall thickening related to fluid status. Will sign off. Please consult if needed. Objective - Vital Signs Vital signs: Vital Signs Temp 99.0 F 06/30/23 08:00 Pulse 94 06/30/23 09:30 Resp 31 H 06/30/23 09:30 BP 95/65 06/30/23 09:30 Pulse Ox 94 L 06/30/23 09:30 FiO2 94 06/30/23 09:05 Intake & Output 06/29/23 06/30/23 06/30/23 18:59 06:59 18:59 Intake Total 739.649 5043.356 70 Output Total 2610 1425 135 Balance -1759.047 -309.644 -65 Weight 119.7 kg Intake: IV 370 110 70 0.9NS 120 110 20 cefTRIAXone 2 gm In 50 50 Sodium Chloride 0.9% 50 ml @ 100 mls/hr IVPB Q24HR [facility] Rx#:[id number] metroNIDAZOLE-NS PMX 500 200 mg In Saline 1 100ml.bag @ 100 mls/hr IVPB Q8HR [facility] Rx#:[id number] Intake, IV Titration 523.692 6800.356 Amount Amiodarone 450 mg In 235.56 Dextrose 5% in Water 250 ml @ 0.5 MG/MIN 16.667 mls/hr IV .Q15H [facility] Rx#: [id number] Dexmedetomidine/0.9% NaCl 14.457 (Pmx) 400 mcg In Empty Bag 1 bag @ 0.2 MCG/KG/HR 5.33 mls/hr IV .[id number] [facility] Rx#:[id number] Diltiazem 125 mg In 90.75 Sodium Chloride 0.9% 100 ml @ 7.5 MG/HR 7.5 mls/hr IV .[id number] [facility] Rx#: [id number] Furosemide 100 mg In 100 86 Sodium Chloride 0.9% 90 ml @ 10 MG/HR 10 mls/hr IV .Q10H [facility] Rx#: [id number] Norepinephrine 4 mg In 366.496 254 Sodium Chloride 0.9% 250 ml @ 0.03 MCG/KG/MIN 12. 184 mls/hr IV .[id number] [facility] Rx#:[id number] Norepinephrine 8 mg In 339.046 Sodium Chloride 0.9% 250 ml @ 0.03 MCG/KG/MIN 7. 396 mls/hr IV .Q24H [facility] Rx#:[id number] Output: Drainage 1000 Left Chest 1000 Urine 1610 1425 135 Other: Voiding Method Indwelling Catheter Indwelling Catheter ABP, PAP, CO, CI - Last Documented Arterial Blood Pressure 104/52 - Labs CBC & Chem 7: 06/30/23 04:30 06/30/23 15:50 Labs: Abnormal Lab Results - Last 24 Hours (Table) 06/29/23 06/29/23 06/30/23 Range/Units 17:30 19:50 04:22 WBC (3.8-10.6) k/uL MCV (80.0-100.0) fL Neutrophils # (1.3-7.7) k/uL Lymphocytes # (1.0-4.8) k/uL Monocytes # (0-1.0) k/uL Sodium (137-145) mmol/L Potassium (3.5-5.1) mmol/L BUN (9-20) mg/dL Creatinine (0.66-1.25) mg/dL Glucose (74-99) mg/dL POC Glucose (mg/dL) 178 H 194 H (70-110) mg/dL Fluid Appearance Bloody A (Clear) 06/30/23 06/30/23 Range/Units 04:30 04:30 WBC 15.1 H (3.8-10.6) k/uL MCV 102.3 H (80.0-100.0) fL Neutrophils # 12.8 H (1.3-7.7) k/uL Lymphocytes # 0.4 L (1.0-4.8) k/uL Monocytes # 1.5 H (0-1.0) k/uL Sodium 147 H (137-145) mmol/L Potassium 3.3 L (3.5-5.1) mmol/L BUN 122 H* (9-20) mg/dL Creatinine 3.72 H (0.66-1.25) mg/dL Glucose 193 H (74-99) mg/dL POC Glucose (mg/dL) (70-110) mg/dL Fluid Appearance (Clear) Microbiology - Last 24 Hours (Table) 06/29/23 17:30 Gram Stain - Final Pericardial Fluid Body Fluid Culture - Final
--- NOTE | 2023-06-30 11:25 | P.PN ---
Subjective Patient is seen for follow-up for acute kidney injury. Renal function has improved. Urine output now at 6200 mL per hour. Patient is maintained on AIRVO . Serum creatinine has improved to 3.7 today. BUN disproportionately elevated secondary to steroids. Status post pericardiocentesis of 1 L for large pericardial effusion yesterday. Patient had another pericardiocentesis but only about 200 mL of fluid was obtained. Sodium at 147 today and BUN increased to 122. Objective - Vital Signs Vital signs: Vital Signs Temp 99.0 F 06/30/23 08:00 Pulse 94 06/30/23 11:00 Resp 36 H 06/30/23 11:00 BP 95/65 06/30/23 11:00 Pulse Ox 92 L 06/30/23 11:00 FiO2 94 06/30/23 09:05 Intake & Output 06/29/23 06/30/23 06/30/23 18:59 06:59 18:59 Intake Total 611.749 5131.356 190 Output Total 2610 1425 310 Balance -1759.047 -309.644 -120 Weight 119.7 kg Intake: IV 370 110 190 0.9NS 120 110 40 cefTRIAXone 2 gm In 50 50 Sodium Chloride 0.9% 50 ml @ 100 mls/hr IVPB Q24HR [facility] Rx#:[id number] metroNIDAZOLE-NS PMX 500 200 100 mg In Saline 1 100ml.bag @ 100 mls/hr IVPB Q8HR [facility] Rx#:[id number] Intake, IV Titration 382.735 8611.356 Amount Amiodarone 450 mg In 235.56 Dextrose 5% in Water 250 ml @ 0.5 MG/MIN 16.667 mls/hr IV .Q15H [facility] Rx#: [id number] Dexmedetomidine/0.9% NaCl 14.457 (Pmx) 400 mcg In Empty Bag 1 bag @ 0.2 MCG/KG/HR 5.33 mls/hr IV .[id number] [facility] Rx#:[id number] Diltiazem 125 mg In 90.75 Sodium Chloride 0.9% 100 ml @ 7.5 MG/HR 7.5 mls/hr IV .[id number] STA Rx#: [id number] Furosemide 100 mg In 100 86 Sodium Chloride 0.9% 90 ml @ 10 MG/HR 10 mls/hr IV .Q10H [facility] Rx#: [id number] Norepinephrine 4 mg In 366.496 254 Sodium Chloride 0.9% 250 ml @ 0.03 MCG/KG/MIN 12. 184 mls/hr IV .[id number] [facility] Rx#:[id number] Norepinephrine 8 mg In 339.046 Sodium Chloride 0.9% 250 ml @ 0.03 MCG/KG/MIN 7. 396 mls/hr IV .Q24H [facility] Rx#:[id number] Output: Drainage 1000 Left Chest 1000 Urine 1610 1425 310 Other: Voiding Method Indwelling Catheter Indwelling Catheter Indwelling Catheter ABP, PAP, CO, CI - Last Documented Arterial Blood Pressure 112/58 - Exam Patient is currently on AIRVO. He is awake. Able to carry on a conversation. Examination of the heart S1 and S2 Examination of the lungs bilateral breath sounds are heard Abdomen is soft nontender, obese Examination of lower extremity shows no edema - Labs CBC & Chem 7: 06/30/23 04:30 06/30/23 04:30 Labs: Abnormal Lab Results - Last 24 Hours (Table) 06/29/23 06/29/23 06/30/23 Range/Units 17:30 19:50 04:22 WBC (3.8-10.6) k/uL MCV (80.0-100.0) fL Neutrophils # (1.3-7.7) k/uL Lymphocytes # (1.0-4.8) k/uL Monocytes # (0-1.0) k/uL Sodium (137-145) mmol/L Potassium (3.5-5.1) mmol/L BUN (9-20) mg/dL Creatinine (0.66-1.25) mg/dL Glucose (74-99) mg/dL POC Glucose (mg/dL) 178 H 194 H (70-110) mg/dL Fluid Appearance Bloody A (Clear) 06/30/23 06/30/23 Range/Units 04:30 04:30 WBC 15.1 H (3.8-10.6) k/uL MCV 102.3 H (80.0-100.0) fL Neutrophils # 12.8 H (1.3-7.7) k/uL Lymphocytes # 0.4 L (1.0-4.8) k/uL Monocytes # 1.5 H (0-1.0) k/uL Sodium 147 H (137-145) mmol/L Potassium 3.3 L (3.5-5.1) mmol/L BUN 122 H* (9-20) mg/dL Creatinine 3.72 H (0.66-1.25) mg/dL Glucose 193 H (74-99) mg/dL POC Glucose (mg/dL) (70-110) mg/dL Fluid Appearance (Clear) Microbiology - Last 24 Hours (Table) 06/29/23 17:30 Gram Stain - Final Pericardial Fluid Body Fluid Culture - Final Assessment and Plan Assessment: 1. Acute kidney injury, ATN currently nonoliguric. Component of cardiorenal syndrome as well. Indwelling Gordon catheter present. BUN disproportionately elevated secondary to steroids. Renal function has improved. 2. Hyperkalemia associated with acute kidney injury. No evidence of obstruction on ultrasound. Improved with improving urine output. 3. Acute hypercapnic respiratory failure, switched from BiPAP to airVO 4. Chronic kidney disease NKF stage IV with baseline creatinine around 2 mg/dL etiology is likely nephrosclerosis. Previous UA showed negative to trace protein. UA this admission shows 2+ protein. This will be monitored and workup will be performed down the road. 5. Hypercalcemia associated with primary hyperparathyroidism, started on Sensipar last admission. Patient's was supposed to have nuclear scan of the parathyroid gland performed as outpatient. 6. Moderate pulmonary hypertension 7. Morbid obesity 8. A. fib with RVR currently maintained on amiodarone drip. 9. Large pericardial effusion status post pericardiocentesis of 1 L and then about 200 mL today Plan: DC Lasix drip Encourage increase free water intake Repeat sodium this evening. If sodium is worse patient will be started on D5W. Continue with Sensipar Add midodrine if patient is able to take oral medications. Repeat labs in a.m. Consider decreasing steroids
--- NOTE | 2023-06-30 11:35 | PN ---
PROGRESS NOTE SUBJECTIVE: Mr. Barajas came with hypercarbic respiratory failure, has severe aortic stenosis and has a large pericardial effusion that was tapped at bedside by Dr. Shi and more than a liter of fluid came out, analysis is pending. The patient remains in atrial fibrillation, rate is controlled. I am recommending that we switch him to oral amiodarone if he is able to tolerate after swallow test. We will place him on 5000 units q.12 hours subcu heparin. I do not believe we should anticoagulate him at this time since he had a fresh pericardial effusion and also his hemoglobin was low. PHYSICAL EXAMINATION: HEART: S1, S2 heard normally with ejection systolic murmur at the base. LUNGS: Reveal bilateral diminished air entry. ABDOMEN: Soft. EXTREMITIES: Lower extremities reveal diminished pulses. NEUROLOGIC: Central nervous system assessment reveals no focal deficits. Prognosis remains guarded. MMGENEL / TISHA: [id number] /
--- NOTE | 2023-06-30 12:04 | XR ---
EXAMINATION TYPE: XR chest 1V portable DATE OF EXAM: 06/30/2023 Comparison: 06/29/2023 Clinical History: 73-year-old male CHF Findings: Heart moderately enlarged. Diffuse interstitial density. Small bilateral pleural effusions, left grea ter than right. Aeration may have slightly improved at the left base. Left subclavian CVC tip at the mid SVC. Impression: Moderate cardiomegaly and underlying pulmonary vascular congestion. Small left greater than right ple ural effusions with adjacent atelectasis and/or consolidation. Some partially improving aeration at t he left base compared to prior exam.
--- NOTE | 2023-06-30 12:16 | CA ---
Transthoracic Echo Report Name: Hemant Carr Age: 73 Gender: M : 1950 Exam Date: 06/30/2023 10:55 Exam Location: [facility] Ht (in): 69 Wt (lb): 263 Ordering Physician: Marty Abdi MD ([id number]) Attending/Referring Phys: [employer]el [employer]ic Myriam Jin RDCS Procedure CPT: Indications: pericardial effusion Cardiac Hx: Technical Quality: Fair Contrast 1: Total Dose (mL): Contrast 2: Total Dose (mL): MEASUREMENTS (Male / Female) Normal Values FINDINGS Left Ventricle Right Ventricle Right Atrium Left Atrium Mitral Valve Aortic Valve Tricuspid Valve Pulmonic Valve Pericardium Minimal pericardial effusion (normal variant). Aorta CONCLUSIONS Small pericardial effusion Previewed by: Dr. Katherine Veras MD (Electronically Signed) Final Date: 30 June 2023 12:15
[2023-06-30] MEDS: LORazepam 2 MG/ML INJ IV PRN ×2 (13:02→21:05)
[2023-06-30] MEDS: DILTIAZEM 125 MG in SODIUM CHLORIDE 0.9% 100 ML IV SCH (18:33)
[2023-06-30] MEDS: MONTELUKAST 10 MG TAB PO SCH (21:04)
[2023-06-30] MEDS: ATORVASTATIN 80 MG TAB PO SCH (21:05)
[2023-06-30] MEDS: SENNOSIDES 8.6 MG TAB PO SCH (21:08)
--- NOTE | 2023-06-30 22:54 | P.PN ---
Subjective Progress Note Date: 06/30/23 This is a pleasant 73 years old male with multiple medical problems including Atrial Fibrillation, Heart Failure, COPD, GI Bleed, Hyperlipidemia, Hypertension, chronic kidney disease/CPAP/BIPAP,Hiatal hernia, cateracts, diverticulosis, CPAP use, Falls, Patient presents because transferred from [facility] for respiratory failure, on arrival he was hypotensive. He was recently in the hospital 06/17-06/19 for hypercalcemia and he was discharged on Sensipar which is thought secondary to hyperparathyroidism. Patient currently lives in the ICU using the BiPAP machine which limits history taken and provide information on the top of that patient is confused but he follows commands appropriately. He can answer some questions like he says he has no pain. He is asking if he can smoke now we explained for him he cannot declines the nicotine patch. Patient currently mildly tachycardic around 108, blood pressure is better 101/81 while he is on pressors. He is on BiPAP machine and he had a temperature of 98.6. showing creatinine of 5.2 with baseline 2.2-2.9, calcium slightly elevated at 11.5. WBC is 15.7 while on steroids, while rest of CBC is unremarkable TSH is elevated at 4.7 but free T4 is normal at 0[place] [address] Ultrasound showing on obstructive uropathy but there is acute cholecystitis with thickened wall. Chest x-ray is suspicious for cardiomegaly and pulmonary edema EKG showing A. fib with rate of 82 b per minute. Patient currently in the ICU on amiodarone drip, Lasix drip at 10 mg per hour , levophed at 0.03 and Solu-Medrol 60 mg, Precedex and IV thiamine 06/28/2023 patient cannot get off the BiPAP overnight and early this morning, he desaturates easily. He remains on amiodarone drip, Lasix drip at 10 mg per hour, and a small dose of levophed at 0.03 and Precedex and thiamine. Distal, not tolerate oral medication and his Eliquis switch to Lovenox 120 mg once daily because of his high creatinine This pH 7.3, pCO2 50 and PaO2 of 76, which is a slightly better than yesterday. Creatinine coming down to 4.4. Ca is also coming down 10.1. WBC still elevated at 13.9 but also patient on steroids. General surgery R following for acute cholecystitis, HIDA scan is ordered, currently on Flagyl and Rocephin 06/29/2023 Patient evaluated today in the ICU. Has been transitioned to airvo. HIDA scan has been placed on hold today as there is findings of large pericardial effusion and cardiothoracic has been consulted. Echocardiogram shows normal LV function, with severe aortic stenosis, mild to moderate TR, mild MR, mild pulmonary hypertension, large pericardial effusion with no clear tamponade. He also had chest xray showing cardiomegaly with mild bibasilar effusions. Mild at the right base. Correlate for CHF. Small amount of atelectasis at the right base. Patient will be going for a pericardial window today. He continues on amiodarone gtt, continues on IV Lasix at 10 mg per hour, he is also on precedex and levophed. Patient is anticoagulated with lovenox. He is on IV ceftriaxone and IV flagyl. White blood cell count today is 13.7, BUN 117, creatinine 3.83. Procalcitonin 0.47. He is afebrile, heart rate in the 110s. Blood pressure marginal 84/57. 06/30/2023 Patient evaluated in the ICU. Status post pericardial window. No plans for HIDA scan of yet. He is more awake and alert today and responding to questions appropriately. He feels his leg swelling is much improved. He remains on airvo high flow oxygen support at 60L 93% FiO2. Saturations around 93%. He remains in and out of a.fib with RVR he has been taken off the amio gtt and placed on IV cardizem. Plans to transition off the lasix gtt today. He is on IV ceftriaxone, IV flagyl, IV solumedrol. He remains on a small dose of levo. Chest xray today showing moderate cardiomegaly with underlying pulmonary vascular congestion, small left greater than right pleural effusions with adjacent atelectasis and or consolidation. Some partially improving aeration of the left base compared to prior exam. Limited echocardiogram today showing small pericardial effusion. Review of Systems Patient is unable to give a ROS at this time due to respiratory distress on airvo and he is lethargic today. Not responding much to questions. Physical Examination -GENERAL: The patient is awake using Airvo, mildly confused. Obese HEENT: Pupils are round and equally reacting to light. EOMI. No scleral icterus. No conjunctival pallor. Normocephalic, atraumatic. No pharyngeal erythema. No thyromegaly. CARDIOVASCULAR: S1 and S2 present. No murmurs, rubs, or gallops. -PULMONARY: Chest is limited air entry on both sides, slightly better than yest erday, no wheezing , no crackles. Mildly tachypneic while he is on airvo. ABDOMEN: Soft, nontender, nondistended, normoactive bowel sounds. No palpable organomegaly. MUSCULOSKELETAL: No joint swelling or deformity. EXTREMITIES: No cyanosis, clubbing, or pedal edema. NEUROLOGICAL: Gross neurological examination did not reveal any focal deficits. Diffuse weakness. SKIN: No rashes. no petechiae. Blanchable erythema bilateral cheeks. Assessment: Acute COPD exacerbation Acute on chronic diastolic CHF with a preserved ejection fraction Large pericardial effusion with no evidence of tamponade Acute hypoxemic hypercapnic respiratory failure, secondary to above Possible acute cholecystitis pending HIDA scan Shock hypovolemic maintained on levophed A. fib and RVR Acute kidney injury secondary to ATN/Cardiorenal syndrome Chronic kidney disease stage IV Moderate to severe aortic stenosis and moderate pulmonary hypertension Hypercalcemia secondary to hyperparathyroidism on treatment Alcohol use disorder Nicotine dependence Chronic hypoxic respiratory failure Morbid obesity with BMI 41.7. Full Code Plan: Continue with cardizem gtt now on oral amiodarone. Patient is off of lasix at this time Continue with levophed at 0.03 Continue with Solu-Medrol 60 mg General surgery following for acute cholecystitis Antibiotic started with Rocephin and Flagyl Cardiothoracic consultation for pericardial window Continue monitoring for alcohol withdrawal and maintain ativan for DTs Several consultants of the case with the pulmonary/critical care team, nephrology, neurology. Labs and medication were reviewed.. Continue same treatment. Continue with symptomatic treatment. Resume home medication. Monitor labs and vitals. DVT and GI prophylaxis. Further recommendations as per clinical course of the patient DVT prophylaxis: Lovenox GI Prophylaxis: Pepcid PT/OT: differed Prognosis is guarded The impression and plan of care has been dictated by Jasmyn Anderson, Nurse Practitioner as directed. Dr. Leyla MD I have performed a history and physical examination and medical decision making of this patient, discussed the same with the dictator, and agree with the dictators assessment and plan as written, documented as a scribe. Based on total visit time, I have performed more than 50% of this visit. Objective - Vital Signs Vital signs: Vital Signs Temp 98.2 F 06/30/23 16:00 Pulse 99 06/30/23 20:34 Resp 13 06/30/23 19:00 BP 95/65 06/30/23 10:45 Pulse Ox 93 L 06/30/23 20:19 FiO2 93 06/30/23 20:19 Intake & Output 06/30/23 06/30/23 07/01/23 06:59 18:59 06:59 Intake Total 1115.356 508.734 10 Output Total 1425 635 50 Balance -309.644 -126.266 -40 Weight 119.7 kg Intake: IV 110 350 10 0.9NS 110 100 10 cefTRIAXone 2 gm In 50 Sodium Chloride 0.9% 50 ml @ 100 mls/hr IVPB Q24HR [facility] Rx#:[id number] metroNIDAZOLE-NS PMX 500 200 mg In Saline 1 100ml.bag @ 100 mls/hr IVPB Q8HR [facility] Rx#:[id number] Intake, IV Titration 1005.356 158.734 Amount Amiodarone 450 mg In 235.56 Dextrose 5% in Water 250 ml @ 0.5 MG/MIN 16.667 mls/hr IV .Q15H [facility] Rx#: [id number] Diltiazem 125 mg In 90.75 Sodium Chloride 0.9% 100 ml @ 7.5 MG/HR 7.5 mls/hr IV .[id number] STA Rx#: [id number] Furosemide 100 mg In 86 Sodium Chloride 0.9% 90 ml @ 10 MG/HR 10 mls/hr IV .Q10H [facility] Rx#: [id number] Norepinephrine 4 mg In 254 Sodium Chloride 0.9% 250 ml @ 0.03 MCG/KG/MIN 12. 184 mls/hr IV .[id number] [facility] Rx#:[id number] Norepinephrine 8 mg In 339.046 158.734 Sodium Chloride 0.9% 250 ml @ 0.03 MCG/KG/MIN 7. 396 mls/hr IV .Q24H [facility] Rx#:[id number] Output: Urine 1425 635 50 Other: Voiding Method Indwelling Catheter Indwelling Catheter ABP, PAP, CO, CI - Last Documented Arterial Blood Pressure 106/57 - Labs CBC & Chem 7: 06/30/23 04:30 06/30/23 15:50 Labs: Abnormal Lab Results - Last 24 Hours (Table) 06/29/23 06/30/23 06/30/23 Range/Units 17:30 04:22 04:30 WBC 15.1 H (3.8-10.6) k/uL MCV 102.3 H (80.0-100.0) fL Neutrophils # 12.8 H (1.3-7.7) k/uL Lymphocytes # 0.4 L (1.0-4.8) k/uL Monocytes # 1.5 H (0-1.0) k/uL Sodium (137-145) mmol/L Potassium (3.5-5.1) mmol/L BUN (9-20) mg/dL Creatinine (0.66-1.25) mg/dL Glucose (74-99) mg/dL POC Glucose (mg/dL) 194 H (70-110) mg/dL Fluid Appearance Bloody A (Clear) 06/30/23 06/30/23 Range/Units 04:30 15:50 WBC (3.8-10.6) k/uL MCV (80.0-100.0) fL Neutrophils # (1.3-7.7) k/uL Lymphocytes # (1.0-4.8) k/uL Monocytes # (0-1.0) k/uL Sodium 147 H 147 H (137-145) mmol/L Potassium 3.3 L (3.5-5.1) mmol/L BUN 122 H* (9-20) mg/dL Creatinine 3.72 H (0.66-1.25) mg/dL Glucose 193 H (74-99) mg/dL POC Glucose (mg/dL) (70-110) mg/dL Fluid Appearance (Clear) Microbiology - Last 24 Hours (Table) 06/29/23 17:30 Gram Stain - Final Pericardial Fluid Body Fluid Culture - Final Assessment and Plan Time with Patient: Less than 30
[2023-07-01] MEDS: metroNIDAZOLE-NS PMX 500 MG in SALINE 1 100ML.BAG IVPB SCH ×4 (00:28→23:03)
[2023-07-01] MEDS: methylPREDNISolone SOD SUCCI 125 MG/2 ML VIAL IV SCH ×4 (00:29→23:03)
[2023-07-01 04:55] LABS: HCT 44.7 % (39.0-53.0); HGB 14.3 gm/dL (13.0-17.5); Hypochromasia Moderate; MCH 33.4 pg (25.0-35.0); MCHC 31.9 g/dL (31.0-37.0); MCV 104.6 fL (80.0-100.0); Macrocytosis Moderate; Mean Platelet Volume 9.7; Platelet Count 136 k/uL (150-450); RBC 4.27 m/uL (4.30-5.90); RDW 14.5 % (11.5-15.5); WBC 11.3 k/uL (3.8-10.6)
[2023-07-01 05:15] LABS: African American GFR (CKD) 17 (>60 ml/min/1.73 sqM); Anion Gap 14 mmol/L; Calcium 8.6 mg/dL (8.4-10.2); Carbon Dioxide 27 mmol/L (22-30); Chloride 107 mmol/L (98-107); Glucose 170 mg/dL (74-99); Non-African American GFR(CKD) 15 (>60 ml/min/1.73 sqM); Potassium 3.7 mmol/L (3.5-5.1); Sodium 148 mmol/L (137-145)
[2023-07-01 05:23] LABS: Blood Urea Nitrogen 129 mg/dL (9-20)
[2023-07-01] MEDS: POTASSIUM CHLORIDE 20 MEQ in WATER FOR INJECTION 1 100ML.BAG IVPB SCH ×2 (06:10→07:00)
[2023-07-01] MEDS: DEXTROSE 5% IN WATER 1,000 ML IV SCH (06:13)
[2023-07-01] MEDS: MIDODRINE 5 MG TAB PO SCH ×3 (07:00→18:38)
--- NOTE | 2023-07-01 07:20 | XR ---
EXAMINATION TYPE: XR chest 1V portable DATE OF EXAM: 07/01/2023 5:36 AM CLINICAL INDICATION:Male, 73 years old with history of chf exacerbation; [facility] COMPARISON: Chest radiographs from 06/30/2023. TECHNIQUE: XR chest 1V portable Frontal view of the chest. FINDINGS: Lungs/Pleura: No evidence of focal consolidation or pneumothorax. Blunting of the costophrenic angles is present. Pulmonary vascularity: Pulmonary vascular congestion. Heart/mediastinum: Cardiomediastinal silhouette is enlarged and stable. Musculoskeletal: No acute osseous pathology. Other findings: None IMPRESSION: Similar given differences in technique. Cardiomegaly, pulmonary vascular congestion and bilateral ple ural effusions. Correlate with BNP for congestive heart failure.
[2023-07-01] MEDS: SENNOSIDES 8.6 MG TAB PO SCH (08:33)
[2023-07-01] MEDS: FAMOTIDINE 20 MG/2 ML VIAL IV SCH (08:33)
[2023-07-01] MEDS: HEPARIN SODIUM,PORCINE 5,000 UNIT/ML 1 ML VIAL SQ SCH ×2 (08:33→21:42)
[2023-07-01] MEDS: FOLIC ACID 1 MG TAB PO SCH (08:33)
[2023-07-01] MEDS: AMIODARONE 200 MG TAB PO SCH ×2 (08:33→21:42)
[2023-07-01] MEDS: METOPROLOL TARTRATE 25 MG TAB PO SCH ×2 (08:35→16:51)
[2023-07-01] MEDS: THIAMINE 100 MG/ML 2 ML VIAL IVP SCH (08:36)
[2023-07-01] MEDS: CINACALCET 30 MG TAB PO SCH (08:36)
[2023-07-01] MEDS: BUDESONIDE 0.5 MG/2 ML NEBU INHALATION SCH ×2 (08:39→19:54)
[2023-07-01] MEDS: IPRATROPIUM-ALBUTEROL 3 ML NEB INHALATION SCH ×4 (08:39→19:53)
--- NOTE | 2023-07-01 10:23 | P.PN ---
Subjective Progress Note Date: 07/01/23 Principal diagnosis: Respiratory failure. Acute on chronic hypoxic and hypercapnic respiratory failure This is a 73-year-old white male with history of multiple medical problems i ncluding chronic congestive heart failure, COPD, chronic kidney disease, chronic hypoxic respiratory failure, obstructive sleep apnea syndrome, maintained on CPAP now patient was transferred from [facility] with 2 days history of increased shortness of breath. I have seen this patient in the past and his last evaluation in the hospital was on 02/16/2023. At that time the patient presented with acute on chronic hypoxic and hypercapnic respiratory failure with congestive heart failure and COPD. He should also had moderate severe aortic stenosis, and morbid obesity as well as chronic atrial fibrillation. Back then the patient was treated mostly aggressively with diuretics, and he was eventually discharged home after almost a week stay in the ICU. This time the patient has a very similar presentation, I saw the patient in the ER, and his is at bedside. Patient is now on BiPAP which I have adjusted to IPAP of 16 and EPAP 6, and he is also on 100% FiO2. ABG is pending, earlier venous ABG showed a pCO2 of 120 and pH of 7.01. After I evaluated the patient, I recommended immediate transfer to the ICU ABG, ultrasound of the chest, I cut down his IV fluid to KVO, started the patient on Lasix drip at 10 mg per hour. And explained to the that the patient may require intubation mechanical ventilation if his condition does not improve much and a short period of time. For low blood pressure may consider using norepinephrine, would definitely avoid using fluids at this point. Labs were reviewed chest x-ray was reviewed his BUN is 99 creatinine is 5.25, and his creatinine only a few days ago was 2.07. Apparently he is developing a worsening picture of chronic kidney disease. Could be cardiorenal. BNP level is 14,900 Reevaluated today on 06/27/2023, patient remains in the ICU, remains on Lasix drip at 10 mg per hour, amiodarone 0.5 mg/m for atrial fibrillation/RVR which she developed last night patient does have chronic history of atrial fibrillation remains on norepinephrine at 0.04 mcg/kg/m, he is on Precedex at 0.2 mcg/kg/hr, IV fluid at 20 mL per hour in the form of 0.9 normal saline. Blood pressure is noted to be borderline. Hence patient had a left subclavian triple-lumen catheter placed and a left radial arterial line placement. Repeat ABG this morning continues to show significant metabolic and respiratory acidosis pO2 of 79 pCO2 62 pH of 7.21, potassium is up to 5.19, patient was given 1 amp of bicarb for his acidosis. His BUN is 107 creatinine 5.17, slightly better compared to yesterday, patient is being evaluated by nephrology. Remains on BiPAP at 16/6/75% FiO2. And overall his clinical status is critically ill/marginal. Patient is definitely high risk for intubation mechanical ventilation, the patient and his are both aware of this, however at this point I will hold on mechanically ventilated the patient. We'll continue BiPAP, continue Lasix drip, and continue pressors patient may eventually require hemodialysis. Ultrasound of the chest showed small bilateral pleural effusions left more so than right, the left sided pocket is not large enough to consider safe left sided thoracentesis. Patient was reevaluated today on 06/2023, remains in the ICU, remains on Lasix drip at 10 mg per hour, remains on BiPAP at 12/6/75%. Patient is still requiring Precedex at 0.6 mcg/kg/h, norepinephrine at 0.03 mcg/kg/m. Patient is negative balance over the last 24 hours about 2 L. And he is steadily improving but remains critically ill, and simply requiring pressors. ABG showed a pO2 of 76 pCO2 of 50 pH of 7.34, significantly improved compared to his initial ABG on admission where his pCO2 was in the 120 range. Patient remains on Rocephin and Flagyl, his CT of the abdomen raised the possibility of acute cholecystitis, but clinically I do not see any evidence of cholecystitis, the patient has no pain or tenderness in the right upper quadrant. Being considered for a HIDA scan. CT of the brain came back negative for acute process. WBC count today is 13.9 hemoglobin 15.4. Platelets are 226, basic metabolic profile is normal BUN is 111 creatinine is down to 4.44 improving in spite of aggressive diuresis on this patient. If her enzymes are basically normal. Chest x-ray this morning showed cardiomegaly, pulmonary vascular congestion, bilateral pleural effusions, however based on ultrasound, the left-sided pleural effusion was not large enough to consider safe thoracentesis Progress note dated 06/29/2023. 73-year-old male seen in the intensive care unit, room 262. The patient is scheduled to have a pericardial window done today, June 29. Briefly, the patient was admitted to the hospital June 26, for CHF, acute mental status changes, and a pericardial effusion. The patient was admitted to the intensive care unit, on the day of admission. The patient's been between BiPAP, with settings of 12/6, and 75%, or AIRVO, at 60 L/m with an FiO2 of 80%. The patient is currently on norepinephrine at 2 mcg/m, dexmedetomidine at 0.3 mcg/kg/h, amiodarone at 0.5 mg/m, a Lasix drip at 10 mg an hour, and saline at KVO. White count is 13.7, hemoglobin 16, hematocrit 48.9, and a platelet count of 203,000. Sodium 143, potassium 4.1, chlorides 102, CO2 28, BUN 117, and creatinine 3.83. Pro-calcitonin level is 0.47, from yesterday. Chest x-ray shows cardiomegaly, with bibasilar effusions. Progress note dated 06/30/2023. 73-year-old male with a history of pericardial effusion. The patient had a bedside procedure done yesterday, to drain the pericardial effusion. About 1 L of fluid was removed. Currently, he's on AIRVO, at 60 L/m, with an FiO2 of 94%. He continues on Lasix drip at 10 mg an hour, norepinephrine at 7.1 mcg/m, amiodarone at 0.5 mg/m, and a Cardizem drip of 7.5 mg an hour. The patient spent some time on BiPAP as well. White count 15.1, hemoglobin 15, hematocrit 47.6, and platelet count 182,000. Sodium 147, potassium 3.3, chlorides 105, CO2 28, BUN 122, and creatinine 3.72. Glucose 193. Calcium is 9.0. Chest x-ray shows a pericardial drain. There is some volume loss of the left lower lobe, and small bilateral pleural effusions. Progress note dated 07/01/2023. 73-year-old male with history of pericardial effusion. The patient is postop d ay #2, status post pericardial window drainage catheter. He seen today in room 262. He continues on either AIRVO, at 50 L/m, with an FiO2 of 75%, or BiPAP, with settings of 12/6, and 85%. The patient continues on norepinephrine at 3.5 mcg/m, D5W at 50 mL an hour, and Cardizem drip at 7.5 mg an hour. The patient's pericardial catheter, was drained yesterday, and 235 mL of fluid was removed. White count 11.3, hemoglobin 14.3, hematocrit 44.7, and platelet count 136,000. Sodium 148, potassium 3.7, chlorides 107, CO2 27, BUN 129, and creatinine 3.82. Glucose 170. Calcium is 8.6. Chest x-ray shows cardiomegaly, and pulmonary vascular congestion, small bilateral effusions. Objective - Vital Signs Vital signs: Vital Signs Temp 99.0 F 07/01/23 08:00 Pulse 90 07/01/23 09:30 Resp 15 07/01/23 09:30 BP 95/65 07/01/23 03:45 Pulse Ox 95 07/01/23 09:30 FiO2 75 07/01/23 08:33 Intake & Output 06/30/23 07/01/23 07/01/23 18:59 06:59 18:59 Intake Total 508.734 881.469 335.665 Output Total 635 495 130 Balance -126.266 386.469 205.665 Weight 122.5 kg 122.5 kg Intake: IV 350 220 300 0.9NS 100 120 Dextrose 5% in Water 1, 50 100 000 ml @ 50 mls/hr IV . Q20H [facility] Rx#:[id number] Potassium Chloride 20 meq 50 50 In Water For Injection 1 100ml.bag @ 100 mls/hr IVPB Q1H [facility] Rx#: [id number] cefTRIAXone 2 gm In 50 50 Sodium Chloride 0.9% 50 ml @ 100 mls/hr IVPB Q24HR [facility] Rx#:[id number] metroNIDAZOLE-NS PMX 500 200 100 mg In Saline 1 100ml.bag @ 100 mls/hr IVPB Q8HR [facility] Rx#:[id number] Intake, IV Titration 158.734 161.469 35.665 Amount Norepinephrine 8 mg In 158.734 161.469 35.665 Sodium Chloride 0.9% 250 ml @ 0.03 MCG/KG/MIN 7. 396 mls/hr IV .Q24H [facility] Rx#:[id number] Oral 500 Output: Urine 635 495 130 Other: Voiding Method Indwelling Catheter Indwelling Catheter Indwelling Catheter ABP, PAP, CO, CI - Last Documented Arterial Blood Pressure 102/52 - Exam No acute distress, currently on AIRVO. HEENT examination is grossly unremarkable. Neck supple. Full range of motion. No adenopathy thyromegaly or neck vein distention. Cardiovascular examination reveals regular rhythm rate. S1-S2 normal. No S3 or S4. No discernible murmur noted. Heart rate 90 bpm. Lungs reveal scattered rhonchi. Breath sounds equal bilaterally. Saturations are 95 %. No wheezes or crackles. The pericardial drainage catheter is noted in the left upper chest area. Abdomen soft bowel sounds are heard. No masses or tenderness. Extremities are intact. No cyanosis clubbing or edema. Skin is without rash or lesion. Neurologic examination reveals a confused white male. - Labs CBC & Chem 7: 07/01/23 04:30 07/01/23 04:30 Labs: Abnormal Lab Results - Last 24 Hours (Table) 06/30/23 07/01/23 07/01/23 Range/Units 15:50 04:30 04:30 WBC 11.3 H (3.8-10.6) k/uL RBC 4.27 L (4.30-5.90) m/uL MCV 104.6 H (80.0-100.0) fL Plt Count 136 L (150-450) k/uL Sodium 147 H 148 H (137-145) mmol/L BUN 129 H* (9-20) mg/dL Creatinine 3.82 H (0.66-1.25) mg/dL Glucose 170 H (74-99) mg/dL Microbiology - Last 24 Hours (Table) 06/29/23 17:30 Acid Fast Bacilli Smear - Preliminary Pericardial Fluid 06/29/23 17:30 Gram Stain - Final Pericardial Fluid Body Fluid Culture - Final Assessment and Plan Assessment: Acute on chronic hypoxemic and hypercapnic respiratory failure. Pericardial effusion, S/P pericardial window, 06/29/2023. Diastolic CHF. Acute on chronic kidney disease. Metabolic encephalopathy. Morbid obesity. Chronic atrial fibrillation, with paroxysmal atrial fibrillation/RVR. Moderately severe aortic stenosis. Obstructive sleep apnea syndrome. History of alcoholism. Hyperlipidemia. Plan: Plan dated 06/29/2023. The patient is scheduled to have a pericardial window, performed today, by cardiothoracic surgery. Otherwise, the patient remains critically ill in the intensive care unit, room 262. The patient's on norepinephrine at 2 mcg/m, dexmedetomidine 0.3 mcg/kg/h, amiodarone at 0.5 mg/m, and a Lasix drip at 10 mg an hour. The patient has been between BiPAP in the AIRVO. Currently he is on BiPAP. The patient came to the intensive care unit, on June 26. We will continue to follow the patient, and make recommendations along the way. Progn osis is certainly guarded. Labs, x-rays, and medications are all reviewed. Plan dated 06/30/2023. The patient had a bedside pericardial drain placed yesterday. About 1 L fluid was removed. The patient continues on Lasix drip at 10 mg an hour, norepinephrine at 7.1 mcg/m, amiodarone at 0.5 mg/m, and Cardizem drip at 7.5 mg an hour. The patient is between AIRVO, and BiPAP. Currently, he is on AIRVO at 60 L/m with an FiO2 of 94%. He we'll continue to follow the patient, and make recommendations along the way. Prognosis is certainly guarded. The fluid was sent to laboratory for analysis. Plan dated 07/01/2023. The patient remains critically O, and is seen in the intensive care unit, room 262. The patient continues on AIRVO, at 50 L/m, with an FiO2 of 75%. He didn't use of BiPAP last night, for short time, according to respiratory therapy. The patient continues on norepinephrine at 3.5 mcg/m, D5W at 50 mL an hour, and Cardizem drip at 7.5 mg an hour. Yesterday, 235 mL of fluid was removed from the pericardium, via the catheter. Labs, x-rays, and medications are reviewed. We will continue to follow the patient, and make recommendations along the way. Prognosis is guarded. Time with Patient: Greater than 30
[2023-07-01] MEDS: DILTIAZEM 125 MG in SODIUM CHLORIDE 0.9% 100 ML IV SCH (10:43)
--- NOTE | 2023-07-01 11:21 | P.PN ---
Subjective Patient is seen for follow-up for acute kidney injury. Renal function has improved. Urine output now at 40-50 ML per hour Patient is maintained on AIRVO . FiO2 has been decreased Serum creatinine at 3.8 today. BUN disproportionately elevated secondary to steroids. Status post pericardiocentesis of 1 L for large pericardial effusion on 06/12. Patient had another pericardiocentesis but only about 200 mL of fluid was obtained. Sodium at 148 today and BUN increased to 129. Objective - Vital Signs Vital signs: Vital Signs Temp 99.0 F 07/01/23 08:00 Pulse 96 07/01/23 10:30 Resp 15 07/01/23 10:30 BP 95/65 07/01/23 03:45 Pulse Ox 95 07/01/23 10:30 FiO2 75 07/01/23 08:33 Intake & Output 06/30/23 07/01/23 07/01/23 18:59 06:59 18:59 Intake Total 508.734 881.469 460.613 Output Total 635 495 130 Balance -126.266 386.469 330.613 Weight 122.5 kg 122.5 kg Intake: IV 350 220 300 0.9NS 100 120 Dextrose 5% in Water 1, 50 100 000 ml @ 50 mls/hr IV . Q20H [facility] Rx#:[id number] Potassium Chloride 20 meq 50 50 In Water For Injection 1 100ml.bag @ 100 mls/hr IVPB Q1H [facility] Rx#: [id number] cefTRIAXone 2 gm In 50 50 Sodium Chloride 0.9% 50 ml @ 100 mls/hr IVPB Q24HR [facility] Rx#:[id number] metroNIDAZOLE-NS PMX 500 200 100 mg In Saline 1 100ml.bag @ 100 mls/hr IVPB Q8HR [facility] Rx#:[id number] Intake, IV Titration 158.734 161.469 160.613 Amount Diltiazem 125 mg In 121.25 Sodium Chloride 0.9% 100 ml @ 7.5 MG/HR 7.5 mls/hr IV .[id number] [facility] Rx#: [id number] Norepinephrine 8 mg In 158.734 161.469 39.363 Sodium Chloride 0.9% 250 ml @ 0.03 MCG/KG/MIN 7. 396 mls/hr IV .Q24H [facility] Rx#:[id number] Oral 500 Output: Urine 635 495 130 Other: Voiding Method Indwelling Catheter Indwelling Catheter Indwelling Catheter ABP, PAP, CO, CI - Last Documented Arterial Blood Pressure 116/58 - Exam Patient is currently on AIRVO. He is awake. Able to carry on a conversation. Remains confused on and off Examination of the heart S1 and S2 Examination of the lungs bilateral breath sounds are heard Abdomen is soft nontender, obese Examination of lower extremity shows no edema - Labs CBC & Chem 7: 07/01/23 04:30 07/01/23 04:30 Labs: Abnormal Lab Results - Last 24 Hours (Table) 06/30/23 07/01/23 07/01/23 Range/Units 15:50 04:30 04:30 WBC 11.3 H (3.8-10.6) k/uL RBC 4.27 L (4.30-5.90) m/uL MCV 104.6 H (80.0-100.0) fL Plt Count 136 L (150-450) k/uL Sodium 147 H 148 H (137-145) mmol/L BUN 129 H* (9-20) mg/dL Creatinine 3.82 H (0.66-1.25) mg/dL Glucose 170 H (74-99) mg/dL Microbiology - Last 24 Hours (Table) 06/29/23 17:30 Gram Stain - Final Pericardial Fluid Body Fluid Culture - Final 06/29/23 17:30 Acid Fast Bacilli Smear - Preliminary Pericardial Fluid Assessment and Plan Assessment: 1. Acute kidney injury, ATN currently nonoliguric. Component of cardiorenal sy ndrome as well. Indwelling Gordon catheter present. BUN disproportionately elevated secondary to steroids. Renal function has improved. Off of diuretics. 2. Hyperkalemia associated with acute kidney injury. No evidence of obstruction on ultrasound. Improved with improving urine output. 3. Acute hypercapnic respiratory failure, switched from BiPAP to airVO 4. Chronic kidney disease NKF stage IV with baseline creatinine around 2 mg/dL etiology is likely nephrosclerosis. Previous UA showed negative to trace protein. UA this admission shows 2+ protein. This will be monitored and workup will be performed down the road. 5. Hypercalcemia associated with primary hyperparathyroidism, started on Sensipar last admission. Patient's was supposed to have nuclear scan of the parathyroid gland performed as outpatient. 6. Moderate pulmonary hypertension 7. Morbid obesity 8. A. fib with RVR currently maintained on amiodarone drip. 9. Large pericardial effusion status post pericardiocentesis of 1 L and then about 200 mL the next day. 10. Hypernatremia associated with free water deficit Plan: Add D5W at 50 mL an hour Repeat serum sodium this evening We will continue to monitor for need for renal replacement therapy on a daily basis.
--- NOTE | 2023-07-01 11:22 | P.PN ---
Subjective Progress Note Date: 07/01/23 Principal diagnosis: Pericardial effusion, tamponade physiology, acute hypoxemic and hypercapnic respiratory failure requiring BiPAP, a fib with RVR. History of severe aortic stenosis, peak/mean gradient 76/43 mmHg and max velocity 4.35 m/sec, atrial fibrillation status post cardioversion on eliquis for anticoagulation, chronic heart failure, previous tobacco dependence, COPD, PIPPA with home cpap use, daily alcohol use, hypertension, hyperlipidemia, chronic kidney disease, GIB POD #2 bedside pericardial drain insertion under echo guidance with removal of 1 L of bloody pericardial effusion sent for culture and cytology The patient was seen and examined at the bedside this morning sitting up in bed in no acute distress. Currently on airvo. Currently in afib but better controlled. Remains on IV levo. Oriented to person, place, time, situation this morning although does keep talking to about seeing "Edis" who the says is . Drained from pericardial drain again this morning: proximal port 65 ml, mid and distal port no drainage. No other new concerns. Objective - Vital Signs Vital signs: Vital Signs Temp 99.0 F 07/01/23 08:00 Pulse 96 07/01/23 10:30 Resp 15 07/01/23 10:30 BP 95/65 07/01/23 03:45 Pulse Ox 95 07/01/23 10:30 FiO2 75 07/01/23 08:33 Intake & Output 06/30/23 07/01/23 07/01/23 18:59 06:59 18:59 Intake Total 508.734 881.469 460.613 Output Total 635 495 130 Balance -126.266 386.469 330.613 Weight 122.5 kg 122.5 kg Intake: IV 350 220 300 0.9NS 100 120 Dextrose 5% in Water 1, 50 100 000 ml @ 50 mls/hr IV . Q20H [facility] Rx#:[id number] Potassium Chloride 20 meq 50 50 In Water For Injection 1 100ml.bag @ 100 mls/hr IVPB Q1H [facility] Rx#: [id number] cefTRIAXone 2 gm In 50 50 Sodium Chloride 0.9% 50 ml @ 100 mls/hr IVPB Q24HR [facility] Rx#:[id number] metroNIDAZOLE-NS PMX 500 200 100 mg In Saline 1 100ml.bag @ 100 mls/hr IVPB Q8HR [facility] Rx#:[id number] Intake, IV Titration 158.734 161.469 160.613 Amount Diltiazem 125 mg In 121.25 Sodium Chloride 0.9% 100 ml @ 7.5 MG/HR 7.5 mls/hr IV .[id number] [facility] Rx#: [id number] Norepinephrine 8 mg In 158.734 161.469 39.363 Sodium Chloride 0.9% 250 ml @ 0.03 MCG/KG/MIN 7. 396 mls/hr IV .Q24H [facility] Rx#:[id number] Oral 500 Output: Urine 635 495 130 Other: Voiding Method Indwelling Catheter Indwelling Catheter Indwelling Catheter ABP, PAP, CO, CI - Last Documented Arterial Blood Pressure 116/58 - Exam CONSTITUTIONAL: Appears comfortable, no acute distress RESPIRATORY: Lungs sounds diminished bilaterally. Respirations even, nonlabored. Currently on airvo with oxygen saturation 95% CARDIOVASCULAR: S1, S2 present. Irregular rate and rhythm, atrial fibrillation on telemetry. Palpable peripheral pulses bilaterally. No edema present. No calf pain or tenderness noted GASTROINTESTINAL: Abdomen soft, nontender, nondistended. Active bowel sounds present 4 quadrants. GENITOURINARY: Gordon present draining clear, yellow urine. Output 1130 mL in the last 24 hours INTEGUMENTARY: Skin is warm and dry NEUROLOGIC: Cranial nerves II through XII intact MUSKULOSKELETAL: Able to move all extremities, strength equal bilaterally PSYCHIATRIC: Confused, agitated at times INVASIVE LINES AND TUBES: Triple lumen pericardial drain present under the left breast, capped - Allied health notes Allied health notes reviewed: nursing - Labs CBC & Chem 7: 07/01/23 04:30 07/01/23 04:30 Labs: Abnormal Lab Results - Last 24 Hours (Table) 06/30/23 07/01/23 07/01/23 Range/Units 15:50 04:30 04:30 WBC 11.3 H (3.8-10.6) k/uL RBC 4.27 L (4.30-5.90) m/uL MCV 104.6 H (80.0-100.0) fL Plt Count 136 L (150-450) k/uL Sodium 147 H 148 H (137-145) mmol/L BUN 129 H* (9-20) mg/dL Creatinine 3.82 H (0.66-1.25) mg/dL Glucose 170 H (74-99) mg/dL Microbiology - Last 24 Hours (Table) 06/29/23 17:30 Gram Stain - Final Pericardial Fluid Body Fluid Culture - Final 06/29/23 17:30 Acid Fast Bacilli Smear - Preliminary Pericardial Fluid - Imaging and Cardiology Chest x-ray: report reviewed, image reviewed Assessment and Plan Assessment: Pericardial effusion without evidence of tamponade status post bedside pericardial drain insertion under echo guidance with removal of 1 L of bloody pericardial effusion sent for culture and cytology Acute hypoxemic and hypercapnic respiratory failure requiring BiPAP A. fib with RVR Shortness of breath, secondary to above Severe aortic stenosis, peak/mean gradient 76/43 mmHg and max velocity 4.35 m/sec History of atrial fibrillation status post cardioversion on eliquis for anticoagulation Chronic heart failure Previous tobacco dependence COPD PIPPA with home cpap use Daily alcohol use Hypertension Hyperlipidemia Chronic kidney disease GIB Plan: Will drain pericardium again tomorrow, if continues to be low output may DC drain tomorrow Airvo/BiPAP management per pulmonology Wean pressors as tolerated A. fib management per cardiology Medical management of other comorbidities per internal medicine, nephro
--- NOTE | 2023-07-01 13:26 | PN ---
PROGRESS NOTE SUBJECTIVE: Mr. Carr is in atrial fibrillation, rate is much better. He is on a combination of oral amiodarone and I will increase beta chad also. He had about a liter of pericardial fluid drained initially and another 230 mL or so yesterday. We will continue current efforts at this time, not anticoagulate other than subcu heparin. Prognosis remains guarded. He has history of hypercarbic respiratory failure, chronic atrial fibrillation, and severe aortic stenosis. OBJECTIVE: HEART: S1-S2 heard normally, ejection systolic murmur is audible. LUNGS: Reveal bilateral diminished air entry. ABDOMEN: Distended. EXTREMITIES: Lower extremities exam reveal diminished pulses. NEUROLOGIC: Central nervous system, no focal deficits. MMODL / IJN: [id number] /
[2023-07-01 18:00] LABS: African American GFR (CKD) 16 (>60 ml/min/1.73 sqM); Anion Gap 15 mmol/L; Calcium 8.3 mg/dL (8.4-10.2); Carbon Dioxide 27 mmol/L (22-30); Chloride 107 mmol/L (98-107); Glucose 219 mg/dL (74-99); Non-African American GFR(CKD) 14 (>60 ml/min/1.73 sqM); Potassium 3.8 mmol/L (3.5-5.1); Sodium 149 mmol/L (137-145)
[2023-07-01 18:23] LABS: Blood Urea Nitrogen 134 mg/dL (9-20)
[2023-07-01] MEDS ORDERED: SODIUM CHLORIDE 0.9% 500 ML 250 ML IV ONE (19:22)
[2023-07-01] MEDS: MONTELUKAST 10 MG TAB PO SCH (21:42)
[2023-07-01] MEDS: ATORVASTATIN 80 MG TAB PO SCH (21:42)
[2023-07-02] MEDS ORDERED: DEXTROSE 50% SYRINGE 50 ML IVP PRN ×2 (00:06)
[2023-07-02] MEDS: METOPROLOL TARTRATE 25 MG TAB PO SCH ×2 (00:06→10:37)
[2023-07-02] MEDS: DEXTROSE 5% IN WATER 1,000 ML IV SCH ×2 (00:08→16:03)
--- NOTE | 2023-07-02 01:11 | P.PN ---
Subjective This is a pleasant 73 years old male with multiple medical problems including Atrial Fibrillation, Heart Failure, COPD, GI Bleed, Hyperlipidemia, Hypertension, chronic kidney disease/CPAP/BIPAP,Hiatal hernia, cateracts, d iverticulosis, CPAP use, Falls, Patient presents because transferred from [facility] for respiratory failure, on arrival he was hypotensive. He was recently in the hospital 06/17-06/19 for hypercalcemia and he was discharged on Sensipar which is thought secondary to hyperparathyroidism. Patient currently lives in the ICU using the BiPAP machine which limits history taken and provide information on the top of that patient is confused but he follows commands appropriately. He can answer some questions like he says he has no pain. He is asking if he can smoke now we explained for him he cannot declines the nicotine patch. Patient currently mildly tachycardic around 108, blood pressure is better 101/81 while he is on pressors. He is on BiPAP machine and he had a temperature of 98. 6. showing creatinine of 5.2 with baseline 2.2-2.9, calcium slightly elevated at 11.5. WBC is 15.7 while on steroids, while rest of CBC is unremarkable TSH is elevated at 4.7 but free T4 is normal [place] 0[place] [id number] Ultrasound showing on obstructive uropathy but there is acute cholecystitis with thickened wall. Chest x-ray is suspicious for cardiomegaly and pulmonary edema EKG showing A. fib with rate of 82 b per minute. Patient currently in the ICU on amiodarone drip, Lasix drip at 10 mg per hour , levophed at 0.03 and Solu-Medrol 60 mg, Precedex and IV thiamine 06/28/2023 patient cannot get off the BiPAP overnight and early this morning, he desaturates easily. He remains on amiodarone drip, Lasix drip at 10 mg per hour, and a small dose of levophed at 0.03 and Precedex and thiamine. Distal, not tolerate oral medication and his Eliquis switch to Lovenox 120 mg once daily because of his high creatinine This pH 7.3, pCO2 50 and PaO2 of 76, which is a slightly better than yesterday. Creatinine coming down to 4.4. Ca is also coming down 10.1. WBC still elevated at 13.9 but also patient on steroids. General surgery R following for acute cholecystitis, HIDA scan is ordered, currently on Flagyl and Rocephin 06/29/2023 Patient evaluated today in the ICU. Has been transitioned to airvo. HIDA scan has been placed on hold today as there is findings of large pericardial effusion and cardiothoracic has been consulted. Echocardiogram shows normal LV function, with severe aortic stenosis, mild to moderate TR, mild MR, mild pulmonary hypertension, large pericardial effusion with no clear tamponade. He also had chest xray showing cardiomegaly with mild bibasilar effusions. Mild at the right base. Correlate for CHF. Small amount of atelectasis at the right base. Patient will be going for a pericardial window today. He continues on amiodarone gtt, continues on IV Lasix at 10 mg per hour, he is also on precedex and levophed. Patient is anticoagulated with lovenox. He is on IV ceftriaxone and IV flagyl. White blood cell count today is 13.7, BUN 117, creatinine 3.83. Procalcitonin 0.47. He is afebrile, heart rate in the 110s. Blood pressure marginal 84/57. 06/30/2023 Patient evaluated in the ICU. Status post pericardial window. No plans for HIDA scan of yet. He is more awake and alert today and responding to questions appropriately. He feels his leg swelling is much improved. He remains on airvo high flow oxygen support at 60L 93% FiO2. Saturations around 93%. He remains in and out of a.fib with RVR he has been taken off the amio gtt and placed on IV cardizem. Plans to transition off the lasix gtt today. He is on IV ceftriaxone, IV flagyl, IV solumedrol. He remains on a small dose of levo. Chest xray today showing moderate cardiomegaly with underlying pulmonary vascular congestion, small left greater than right pleural effusions with adjacent atelectasis and or consolidation. Some partially improving aeration of the left base compared to prior exam. Limited echocardiogram today showing small pericardial effusion. 07/01/2023 Patient remains in the ICU, his sitting in chair on nerve or with a flow rate of 60 L/m some saturation of FiO2 of 93%. He denies chest pain, mildly tachypneic. He is obese with mild fluid overload. His blood pressure is 107/58, heart rate 101, A. fib while he is on amiodarone and Cardizem drip Also is a small dose of pressors with Levophed at 0.03. Sodium is elevated at 149 and currently he is on D5W at 50 mL per hour. He does not show signs symptoms of alcohol withdrawal, he is on broad-spectrum antibiotics of Rocephin and Flagyl started by surgery team for suspected gallbladder disease. Currently he denies any abdominal pain. Remains on IV Solu-Medrol 60 mg as well. Creatinine improving down to 4. Cholecystectomy. 3. WBC 11.3. Cardiothoracic surgery followed closely and he is status post pericardial window and drainage of pericardial effusion of 1 L and today more than 200 mL. Review of systems CONSTITUTIONAL: No fever, no malaise, no fatigue. HEENT: No recent visual problems or hearing problems. Denied any sore throat. CARDIOVASCULAR: No orthopnea, PND, no palpitations, no syncope. PULMONARY: No chest wall tenderness, no hemoptysis Active Medications Generic Name Dose Route Start Last Admin Trade Name Freq PRN Reason Stop Dose Admin Acetaminophen 650 mg 06/26/23 15:21 06/30/23 21:04 Acetaminophen Tab 325 Mg Tab PO 650 mg Q4HR PRN Administration Fever and/or Mild Pain Albuterol Sulfate 2.5 mg 06/26/23 15:43 Albuterol Nebulized 2.5 Mg/3 Ml INHALATION RT-Q4H PRN Shortness Of Breath Albuterol/Ipratropium 3 ml 06/26/23 16:00 07/01/23 19:53 Ipratropium-Albuterol 3 Ml Neb INHALATION 3 ml RT-QID GERTRUDIS Administration Amiodarone HCl 200 mg 06/30/23 10:21 07/01/23 21:42 Amiodarone 200 Mg Tab PO 200 mg BID GERTRUDIS Administration Atorvastatin Calcium 80 mg 06/26/23 21:00 07/01/23 21:42 Atorvastatin 80 Mg Tab PO 80 mg HS GERTRUDIS Administration Budesonide 0.5 mg 06/26/23 20:00 07/01/23 19:54 Budesonide 0.5 Mg/2 Ml Nebu INHALATION 0.5 mg RT-BID GERTRUDIS Administration Cinacalcet 30 mg 06/27/23 09:00 07/01/23 08:36 Cinacalcet 30 Mg Tab PO 30 mg DAILY GERTRUDIS Administration Dextrose/Water 25 ml 07/02/23 00:06 Dextrose 50% Syringe 50 Ml IVP PER PROTOCOL PRN Hypoglycemia Protocol Dextrose/Water 50 ml 07/02/23 00:06 Dextrose 50% Syringe 50 Ml IVP PER PROTOCOL PRN Hypoglycemia Protocol Famotidine 20 mg 06/27/23 09:00 07/01/23 08:33 Famotidine 20 Mg/2 Ml Vial IV 20 mg DAILY GERTRUDIS Administration Folic Acid 1 mg 06/28/23 14:15 07/01/23 08:33 Folic Acid 1 Mg Tab PO 1 mg DAILY GERTRUDIS Administration Haloperidol Lactate 4 mg 06/29/23 11:36 07/01/23 23:03 Haloperidol Lactate 5 Mg/Ml 1 Ml Vial IVP 4 mg Q4H PRN Administration Agitation or Acute Psychosis Haloperidol Lactate 8 mg 06/29/23 11:37 06/29/23 17:52 Haloperidol Lactate 5 Mg/Ml 1 Ml Vial IVP 8 mg Q4H PRN Administration Agitation or Acute Psychosis Heparin Sodium (Porcine) 5,000 unit 06/30/23 09:00 07/01/23 21:42 Heparin Sodium,Porcine 5,000 Unit/Ml 1 Ml Vial SQ 5,000 unit Q12HR GERTRUDIS Administration Dexmedetomidine HCl 400 mcg/ 100 mls @ 5.33 mls/hr 06/26/23 22:15 06/29/23 09:05 IV Solution IV 0 mcg/kg/hr .[id number] GERTRUDIS 0 mls/hr Titration Protocol 0.2 MCG/KG/HR Ceftriaxone Sodium 2 gm/ 50 mls @ 100 mls/hr 06/27/23 09:15 07/01/23 08:35 Sodium Chloride IVPB 100 mls/hr Q24HR GERTRUDIS Administration Protocol Metronidazole 500 mg/ IV 100 mls @ 100 mls/hr 06/27/23 09:15 07/01/23 23:03 Solution IVPB 100 mls/hr Q8HR GERTRUDIS Administration Protocol Norepinephrine Bitartrate 8 mg 258 mls @ 7.396 mls/hr 06/29/23 20:00 07/01/23 16:00 / Sodium Chloride IV 0 mcg/kg/min .Q24H GERTRUDIS 0 mls/hr Titration Protocol 0.03 MCG/KG/MIN Diltiazem HCl 125 mg/ Sodium 125 mls @ 7.5 mls/hr 06/30/23 15:30 07/01/23 11:15 Chloride IV 0 mg/hr .[id number] GERTRUDIS 0 mls/hr Titration Protocol 7.5 MG/HR Dextrose/Water 1,000 mls @ 75 mls/hr 07/01/23 06:15 07/02/23 00:08 Dextrose 5%-Water Iv Soln IV 75 mls/hr .[id number] GERTRUDIS Administration Insulin Aspart 0 unit 07/02/23 07:30 Insulin Aspart (Novolog) 100 Unit/Ml Vial SQ ACHS GERTRUDIS Protocol Lorazepam 1 mg 06/27/23 10:58 06/30/23 21:05 Lorazepam 2 Mg/Ml Inj IV 1 mg Q4HR PRN Administration Anxiety Methylprednisolone Sodium Succinate 60 mg 06/27/23 00:00 07/01/23 23:03 Methylprednisolone Sod Succi 125 Mg/2 Ml Vial IV 60 mg Q8HR GERTRUDIS Administration Metoprolol Tartrate 2.5 mg 06/29/23 14:03 06/29/23 22:32 Metoprolol Tartrate 5 Mg/5 Ml Vial IVP 2.5 mg Q4H PRN Administration Heart Rate - HIGH Metoprolol Tartrate 25 mg 07/01/23 09:00 07/02/23 00:06 Metoprolol Tartrate 25 Mg Tab PO Not Given TID GERTRUDIS Midodrine 5 mg 06/28/23 12:30 07/01/23 18:38 Midodrine 5 Mg Tab PO 5 mg AC-TID GERTRUDIS Administration Miscellaneous Information 1 each 06/30/23 09:44 Potassium Replacement Protocol 1 Each Misc MISCELLANE DAILY PRN Per Protocol Protocol Montelukast Sodium 10 mg 06/26/23 21:00 07/01/23 21:42 Montelukast 10 Mg Tab PO 10 mg HS GERTRUDIS Administration Naloxone HCl 0.2 mg 06/26/23 15:21 Naloxone 0.4 Mg/Ml 1 Ml Vial IV Q2M PRN Opioid Reversal Ondansetron HCl 4 mg 06/26/23 15:21 Ondansetron 4 Mg/2 Ml Vial IVP Q8HR PRN Nausea And Vomiting Senna 8.6 mg 06/30/23 21:00 07/01/23 08:33 Sennosides 8.6 Mg Tab PO 8.6 mg DAILY GERTRUDIS Administration Thiamine HCl 100 mg 06/27/23 09:00 07/01/23 08:36 Thiamine 100 Mg/Ml 2 Ml Vial IVP 100 mg DAILY GERTRUDIS Administration GASTROINTESTINAL: No diarrhea, no nausea, no vomiting, no abdominal pain. Normoactive bowel sounds. NEUROLOGICAL: No headaches, no weakness, no numbness. Objective - Vital Signs Vital signs: Vital Signs Temp 99.0 F 07/01/23 08:00 Pulse 96 07/01/23 10:30 Resp 15 07/01/23 10:30 BP 95/65 07/01/23 03:45 Pulse Ox 95 07/01/23 10:30 FiO2 75 07/01/23 08:33 Intake & Output 06/30/23 07/01/23 07/01/23 18:59 06:59 18:59 Intake Total 508.734 881.469 460.613 Output Total 635 495 130 Balance -126.266 386.469 330.613 Weight 122.5 kg 122.5 kg Intake: IV 350 220 300 0.9NS 100 120 Dextrose 5% in Water 1, 50 100 000 ml @ 50 mls/hr IV . Q20H GERTRUDIS Rx#:[id number] Potassium Chloride 20 meq 50 50 In Water For Injection 1 100ml.bag @ 100 mls/hr IVPB Q1H GERTRUDIS Rx#: [id number] cefTRIAXone 2 gm In 50 50 Sodium Chloride 0.9% 50 ml @ 100 mls/hr IVPB Q24HR GERTRUDIS Rx#:[id number] metroNIDAZOLE-NS PMX 500 200 100 mg In Saline 1 100ml.bag @ 100 mls/hr IVPB Q8HR GERTRUDIS Rx#:[id number] Intake, IV Titration 158.734 161.469 160.613 Amount Diltiazem 125 mg In 121.25 Sodium Chloride 0.9% 100 ml @ 7.5 MG/HR 7.5 mls/hr IV .[id number] GERTRUDIS Rx#: [id number] Norepinephrine 8 mg In 158.734 161.469 39.363 Sodium Chloride 0.9% 250 ml @ 0.03 MCG/KG/MIN 7. 396 mls/hr IV .Q24H GERTRUDIS Rx#:[id number] Oral 500 Output: Urine 635 495 130 Other: Voiding Method Indwelling Catheter Indwelling Catheter Indwelling Catheter ABP, PAP, CO, CI - Last Documented Arterial Blood Pressure 116/58 - Exam -GENERAL: The patient is awake , looks tired on airvo, , mildly confused. Obese HEENT: Pupils are round and equally reacting to light. EOMI. No scleral icterus. No conjunctival pallor. Normocephalic, atraumatic. No pharyngeal erythema. No thyromegaly. CARDIOVASCULAR: S1 and S2 present. No murmurs, rubs, or gallops. -PULMONARY: Chest is limited air entry on both sides, slightly better than yesterday, no wheezing , no crackles. Mildly tachypneic while he is on BiPAP ABDOMEN: Soft, nontender, nondistended, normoactive bowel sounds. No palpable organomegaly. MUSCULOSKELETAL: No joint swelling or deformity. EXTREMITIES: No cyanosis, clubbing, or pedal edema. NEUROLOGICAL: Gross neurological examination did not reveal any focal deficits. SKIN: No rashes. no petechiae. - Labs CBC & Chem 7: 07/01/23 04:30 07/01/23 17:15 Labs: Abnormal Lab Results - Last 24 Hours (Table) 06/30/23 07/01/23 07/01/23 Range/Units 15:50 04:30 04:30 WBC 11.3 H (3.8-10.6) k/uL RBC 4.27 L (4.30-5.90) m/uL MCV 104.6 H (80.0-100.0) fL Plt Count 136 L (150-450) k/uL Sodium 147 H 148 H (137-145) mmol/L BUN 129 H* (9-20) mg/dL Creatinine 3.82 H (0.66-1.25) mg/dL Glucose 170 H (74-99) mg/dL Microbiology - Last 24 Hours (Table) 06/29/23 17:30 Gram Stain - Final Pericardial Fluid Body Fluid Culture - Final 06/29/23 17:30 Acid Fast Bacilli Smear - Preliminary Pericardial Fluid Assessment and Plan Assessment: Acute COPD exacerbation Acute on chronic diastolic CHF with a preserved ejection fraction Acute hypoxemic hypercapnic respiratory failure, secondary to above Possible acute cholecystitis, versus intra-abdominal infection on broad-spectrum antibiotic Pericardial effusion status post pericardial window for drainage A. fib and RVR Acute kidney injury on chronic kidney disease stage IV Moderate to severe aortic stenosis Hypercalcemia secondary to hyperparathyroidism on treatment Alcohol use disorder Nicotine dependence Chronic hypoxic respiratory failure Morbid obesity with BMI 41.7. Plan: Continue with oral amiodarone, and Cardizem drip, Continue with airvo Continue with levophed at 0.03 Continue with Solu-Medrol 60 mg General surgery R following for acute cholecystitis Antibiotic started with Rocephin and Flagyl Continue with D5W Several consultants of the case with the pulmonary/critical care team, nephrology, neurology. Cardiothoracic surgery team Labs and medication were reviewed.. Continue same treatment. Continue with symptomatic treatment. Resume home medication. Monitor labs and vitals. DVT and GI prophylaxis. Further recommendations as per clinical course of the patient DVT prophylaxis: on eliquis GI Prophylaxis: Pepcid PT/OT: differed Prognosis is guarded
[2023-07-02] MEDS: DILTIAZEM 125 MG in SODIUM CHLORIDE 0.9% 100 ML IV SCH (02:56)
[2023-07-02 05:54] LABS: Basophils % (A) 0 %; Eosinophils % (A) 0 %; HCT 43.2 % (39.0-53.0); HGB 13.4 gm/dL (13.0-17.5); Hypochromasia Moderate; Lymphocytes # (A) 0.2 k/uL (1.0-4.8); Lymphocytes % (A) 2 %; MCHC 31.1 g/dL (31.0-37.0); MCV 106.3 fL (80.0-100.0); Macrocytosis Moderate; Mean Platelet Volume 10.7; Monocytes # (A) 0.7 k/uL (0-1.0); Monocytes % (A) 6 %; Neutrophils # (A) 9.9 k/uL (1.3-7.7); Neutrophils % (A) 91 %; RBC 4.07 m/uL (4.30-5.90); RDW 14.8 % (11.5-15.5); WBC 10.9 k/uL (3.8-10.6)
[2023-07-02 06:22] LABS: Ovalocytes Present; Platelet Count 97 k/uL (150-450)
[2023-07-02 06:38] LABS: African American GFR (CKD) 18 (>60 ml/min/1.73 sqM); Anion Gap 10 mmol/L; Calcium 8.2 mg/dL (8.4-10.2); Carbon Dioxide 29 mmol/L (22-30); Chloride 108 mmol/L (98-107); Glucose 215 mg/dL (74-99); Non-African American GFR(CKD) 15 (>60 ml/min/1.73 sqM); Potassium 3.6 mmol/L (3.5-5.1); Sodium 147 mmol/L (137-145)
[2023-07-02 06:51] LABS: Blood Urea Nitrogen 132 mg/dL (9-20)
[2023-07-02] MEDS: MIDODRINE 5 MG TAB PO SCH ×3 (07:06→17:24)
[2023-07-02] MEDS: POTASSIUM CHLORIDE 10 MEQ in WATER FOR INJECTION 1 100ML.BAG IVPB SCH ×2 (07:40→08:22)
[2023-07-02 08:07] LABS: Glucose,Whole Blood 197 mg/dL (70-110)
[2023-07-02] MEDS: INSULIN ASPART (NovoLOG) 100 UNIT/ML VIAL SQ SCH ×4 (08:21→21:59)
[2023-07-02] MEDS: metroNIDAZOLE-NS PMX 500 MG in SALINE 1 100ML.BAG IVPB SCH ×3 (08:23→23:13)
[2023-07-02] MEDS: THIAMINE 100 MG/ML 2 ML VIAL IVP SCH (08:23)
[2023-07-02] MEDS: CINACALCET 30 MG TAB PO SCH (08:25)
[2023-07-02] MEDS: FOLIC ACID 1 MG TAB PO SCH (08:26)
[2023-07-02] MEDS: AMIODARONE 200 MG TAB PO SCH ×2 (08:26→21:58)
[2023-07-02] MEDS: methylPREDNISolone SOD SUCCI 125 MG/2 ML VIAL IV SCH ×3 (08:26→23:13)
[2023-07-02] MEDS: SENNOSIDES 8.6 MG TAB PO SCH (08:26)
[2023-07-02] MEDS: FAMOTIDINE 20 MG/2 ML VIAL IV SCH (08:27)
[2023-07-02] MEDS: HEPARIN SODIUM,PORCINE 5,000 UNIT/ML 1 ML VIAL SQ SCH ×2 (08:28→21:58)
[2023-07-02] MEDS: BUDESONIDE 0.5 MG/2 ML NEBU INHALATION SCH ×2 (08:51→20:42)
[2023-07-02] MEDS: IPRATROPIUM-ALBUTEROL 3 ML NEB INHALATION SCH ×4 (08:51→20:42)
--- NOTE | 2023-07-02 09:43 | XR ---
EXAMINATION TYPE: XR chest 1V portable DATE OF EXAM: 07/02/2023 Comparison: 07/01/2023 Clinical History: 73-year-old male CHF exacerbation Findings: Left subclavian CVC tip at the mid SVC level. Heart moderately enlarged. Moderate effusion on the lef t appears to be increasing. Opacification of the retrocardiac and left base. Diffuse interstitial den sity persists in more patchy appearance of the right base. Impression: 1. Moderate cardiomegaly and mild CHF with pulmonary vascular congestion. 2. Enlarging moderate left pleural effusion with adjacent atelectasis and/or consolidation.
[2023-07-02] MEDS: DEXMEDETOMIDINE/0.9% NACL(PMX) 400 MCG in EMPTY BAG 1 BAG IV SCH (10:11)
[2023-07-02] MEDS ORDERED: MAGNESIUM HYDROXIDE 2,400 MG/30 ML CUP PO PRN (10:40)
[2023-07-02] MEDS ORDERED: bisacodyL 10 MG SUPP RECTAL PRN (10:40)
--- NOTE | 2023-07-02 10:50 | P.PN ---
Subjective This is a pleasant 73 years old male with multiple medical problems including Atrial Fibrillation, Heart Failure, COPD, GI Bleed, Hyperlipidemia, Hypertension, chronic kidney disease/CPAP/BIPAP,Hiatal hernia, cateracts, d iverticulosis, CPAP use, Falls, Patient presents because transferred from [facility] for respiratory failure, on arrival he was hypotensive. He was recently in the hospital 06/17-06/19 for hypercalcemia and he was discharged on Sensipar which is thought secondary to hyperparathyroidism. Patient currently lives in the ICU using the BiPAP machine which limits history taken and provide information on the top of that patient is confused but he follows commands appropriately. He can answer some questions like he says he has no pain. He is asking if he can smoke now we explained for him he cannot declines the nicotine patch. Patient currently mildly tachycardic around 108, blood pressure is better 101/81 while he is on pressors. He is on BiPAP machine and he had a temperature of 98. 6. showing creatinine of 5.2 with baseline 2.2-2.9, calcium slightly elevated at 11.5. WBC is 15.7 while on steroids, while rest of CBC is unremarkable TSH is elevated at 4.7 but free T4 is normal at 0.7[place] [id number] Ultrasound showing on obstructive uropathy but there is acute cholecystitis with thickened wall. Chest x-ray is suspicious for cardiomegaly and pulmonary edema EKG showing A. fib with rate of 82 b per minute. Patient currently in the ICU on amiodarone drip, Lasix drip at 10 mg per hour , levophed at 0.03 and Solu-Medrol 60 mg, Precedex and IV thiamine 06/28/2023 patient cannot get off the BiPAP overnight and early this morning, he desaturates easily. He remains on amiodarone drip, Lasix drip at 10 mg per hour, and a small dose of levophed at 0.03 and Precedex and thiamine. Distal, not tolerate oral medication and his Eliquis switch to Lovenox 120 mg once daily because of his high creatinine This pH 7.3, pCO2 50 and PaO2 of 76, which is a slightly better than yesterday. Creatinine coming down to 4.4. Ca is also coming down 10.1. WBC still elevated at 13.9 but also patient on steroids. General surgery R following for acute cholecystitis, HIDA scan is ordered, currently on Flagyl and Rocephin 06/29/2023 Patient evaluated today in the ICU. Has been transitioned to airvo. HIDA scan has been placed on hold today as there is findings of large pericardial effusion and cardiothoracic has been consulted. Echocardiogram shows normal LV function, with severe aortic stenosis, mild to moderate TR, mild MR, mild pulmonary hypertension, large pericardial effusion with no clear tamponade. He also had chest xray showing cardiomegaly with mild bibasilar effusions. Mild at the right base. Correlate for CHF. Small amount of atelectasis at the right base. Patient will be going for a pericardial window today. He continues on amiodarone gtt, continues on IV Lasix at 10 mg per hour, he is also on precedex and levophed. Patient is anticoagulated with lovenox. He is on IV ceftriaxone and IV flagyl. White blood cell count today is 13.7, BUN 117, creatinine 3.83. Procalcitonin 0.47. He is afebrile, heart rate in the 110s. Blood pressure marginal 84/57. 06/30/2023 Patient evaluated in the ICU. Status post pericardial window. No plans for HIDA scan of yet. He is more awake and alert today and responding to questions appropriately. He feels his leg swelling is much improved. He remains on airvo high flow oxygen support at 60L 93% FiO2. Saturations around 93%. He remains in and out of a.fib with RVR he has been taken off the amio gtt and placed on IV cardizem. Plans to transition off the lasix gtt today. He is on IV ceftriaxone, IV flagyl, IV solumedrol. He remains on a small dose of levo. Chest xray today showing moderate cardiomegaly with underlying pulmonary vascular congestion, small left greater than right pleural effusions with adjacent atelectasis and or consolidation. Some partially improving aeration of the left base compared to prior exam. Limited echocardiogram today showing small pericardial effusion. 07/01/2023 Patient remains in the ICU, his sitting in chair on nerve or with a flow rate of 60 L/m some saturation of FiO2 of 93%. He denies chest pain, mildly tachypneic. He is obese with mild fluid overload. His blood pressure is 107/58, heart rate 101, A. fib while he is on amiodarone and Cardizem drip Also is a small dose of pressors with Levophed at 0.03. Sodium is elevated at 149 and currently he is on D5W at 50 mL per hour. He does not show signs symptoms of alcohol withdrawal, he is on broad-spectrum antibiotics of Rocephin and Flagyl started by surgery team for suspected gallbladder disease. Currently he denies any abdominal pain. Remains on IV Solu-Medrol 60 mg as well. Creatinine improving down to 4. Cholecystectomy. 3. WBC 11.3. Cardiothoracic surgery followed closely and he is status post pericardial window and drainage of pericardial effusion of 1 L and today more than 200 mL. 07/02/2023 Patient in the ICU, sitting up in chair this morning, he looks more awake comfortable and relaxed however he still in mild respiratory distress and mild tachypnea. His oxygen requirement is less today and his currently on 7 L at high flow nasal cannula. Blood pressure 111/59, slightly tachypneic about 20-24 and he is afebrile. Creatinine improvement 3.6 sodium improving 147, still have mild leukocytosis but also is on steroids. Chest x-ray today I reviewed by myself showing better variation on the right lower zone but increased pleural effusion on the left side with possible adjacent atelectasis. Distal on Solu-Medrol 60 mg, broad-spectrum antibiotics by surgery team for Rocephin and oral Flagyl suspected for acute cholecystitis, patient currently he denies any right upper quadrant abdominal pain or tenderness. Remains on D5W at 75 mL/h. His metoprolol, torsemide on Eliquis remaining on hold currently. Review of systems CONSTITUTIONAL: No fever, no malaise, no fatigue. HEENT: No recent visual problems or hearing problems. Denied any sore throat. CARDIOVASCULAR: No orthopnea, PND, no palpitations, no syncope. PULMONARY: No chest wall tenderness, no hemoptysis GASTROINTESTINAL: No diarrhea, no nausea, no vomiting, no abdominal pain. Normoactive bowel sounds. NEUROLOGICAL: No headaches, no weakness, no numbness. Active Medications Generic Name Dose Route Start Last Admin Trade Name Freq PRN Reason Stop Dose Admin Acetaminophen 650 mg 06/26/23 15:21 06/30/23 21:04 Acetaminophen Tab 325 Mg Tab PO 650 mg Q4HR PRN Administration Fever and/or Mild Pain Albuterol Sulfate 2.5 mg 06/26/23 15:43 Albuterol Nebulized 2.5 Mg/3 Ml INHALATION RT-Q4H PRN Shortness Of Breath Albuterol/Ipratropium 3 ml 06/26/23 16:00 07/02/23 08:51 Ipratropium-Albuterol 3 Ml Neb INHALATION 3 ml RT-QID [facility] Administration Amiodarone HCl 200 mg 06/30/23 10:21 07/02/23 08:26 Amiodarone 200 Mg Tab PO 200 mg BID [facility] Administration Atorvastatin Calcium 80 mg 06/26/23 21:00 07/01/23 21:42 Atorvastatin 80 Mg Tab PO 80 mg HS [facility] Administration Bisacodyl 10 mg 07/02/23 10:40 Bisacodyl 10 Mg Supp RECTAL DAILY PRN Constipation Budesonide 0.5 mg 06/26/23 20:00 07/02/23 08:51 Budesonide 0.5 Mg/2 Ml Nebu INHALATION 0.5 mg RT-BID [facility] Administration Cinacalcet 30 mg 06/27/23 09:00 07/02/23 08:25 Cinacalcet 30 Mg Tab PO 30 mg DAILY [facility] Administration Dextrose/Water 25 ml 07/02/23 00:06 Dextrose 50% Syringe 50 Ml IVP PER PROTOCOL PRN Hypoglycemia Protocol Dextrose/Water 50 ml 07/02/23 00:06 Dextrose 50% Syringe 50 Ml IVP PER PROTOCOL PRN Hypoglycemia Protocol Famotidine 20 mg 06/27/23 09:00 07/02/23 08:27 Famotidine 20 Mg/2 Ml Vial IV 20 mg DAILY [facility] Administration Folic Acid 1 mg 06/28/23 14:15 07/02/23 08:26 Folic Acid 1 Mg Tab PO 1 mg DAILY [facility] Administration Haloperidol Lactate 4 mg 06/29/23 11:36 07/01/23 23:03 Haloperidol Lactate 5 Mg/Ml 1 Ml Vial IVP 4 mg Q4H PRN Administration Agitation or Acute Psychosis Haloperidol Lactate 8 mg 06/29/23 11:37 06/29/23 17:52 Haloperidol Lactate 5 Mg/Ml 1 Ml Vial IVP 8 mg Q4H PRN Administration Agitation or Acute Psychosis Heparin Sodium (Porcine) 5,000 unit 06/30/23 09:00 07/02/23 08:28 Heparin Sodium,Porcine 5,000 Unit/Ml 1 Ml Vial SQ 5,000 unit Q12HR [facility] Administration Dexmedetomidine HCl 400 mcg/ 100 mls @ 5.33 mls/hr 06/26/23 22:15 07/02/23 10:11 IV Solution IV Not Given .[id number] [facility] Protocol 0.2 MCG/KG/HR Ceftriaxone Sodium 2 gm/ 50 mls @ 100 mls/hr 06/27/23 09:15 07/02/23 08:22 Sodium Chloride IVPB 100 mls/hr Q24HR [facility] Administration Protocol Metronidazole 500 mg/ IV 100 mls @ 100 mls/hr 06/27/23 09:15 07/02/23 08:23 Solution IVPB 100 mls/hr Q8HR [facility] Administration Protocol Norepinephrine Bitartrate 8 mg 258 mls @ 7.396 mls/hr 06/29/23 20:00 07/02/23 05:45 / Sodium Chloride IV Infused .Q24H [facility] Titration Protocol 0.03 MCG/KG/MIN Diltiazem HCl 125 mg/ Sodium 125 mls @ 7.5 mls/hr 06/30/23 15:30 07/02/23 02:56 Chloride IV Not Given .[id number] [facility] Protocol 7.5 MG/HR Dextrose/Water 1,000 mls @ 75 mls/hr 07/01/23 06:15 07/02/23 00:08 Dextrose 5%-Water Iv Soln IV 75 mls/hr .[id number] [facility] Administration Insulin Aspart 0 unit 07/02/23 07:30 07/02/23 08:21 Insulin Aspart (Novolog) 100 Unit/Ml Vial SQ 2 unit ACHS [facility] Administration Protocol Lorazepam 1 mg 06/27/23 10:58 06/30/23 21:05 Lorazepam 2 Mg/Ml Inj IV 1 mg Q4HR PRN Administration Anxiety Magnesium Hydroxide 2,400 mg 07/02/23 10:40 Magnesium Hydroxide 2,400 Mg/30 Ml Cup PO DAILY PRN Constipation Methylprednisolone Sodium Succinate 60 mg 06/27/23 00:00 07/02/23 08:26 Methylprednisolone Sod Succi 125 Mg/2 Ml Vial IV 60 mg Q8HR [facility] Administration Metoprolol Tartrate 2.5 mg 06/29/23 14:03 06/29/23 22:32 Metoprolol Tartrate 5 Mg/5 Ml Vial IVP 2.5 mg Q4H PRN Administration Heart Rate - HIGH Metoprolol Tartrate 25 mg 07/01/23 09:00 07/02/23 10:37 Metoprolol Tartrate 25 Mg Tab PO Not Given TID [facility] Midodrine 5 mg 06/28/23 12:30 07/02/23 07:06 Midodrine 5 Mg Tab PO 5 mg AC-TID [facility] Administration Miscellaneous Information 1 each 06/30/23 09:44 Potassium Replacement Protocol 1 Each Misc MISCELLANE DAILY PRN Per Protocol Protocol Montelukast Sodium 10 mg 06/26/23 21:00 07/01/23 21:42 Montelukast 10 Mg Tab PO 10 mg HS [facility] Administration Naloxone HCl 0.2 mg 06/26/23 15:21 Naloxone 0.4 Mg/Ml 1 Ml Vial IV Q2M PRN Opioid Reversal Ondansetron HCl 4 mg 06/26/23 15:21 Ondansetron 4 Mg/2 Ml Vial IVP Q8HR PRN Nausea And Vomiting Senna 8.6 mg 06/30/23 21:00 07/02/23 08:26 Sennosides 8.6 Mg Tab PO 8.6 mg DAILY [facility] Administration Thiamine HCl 100 mg 06/27/23 09:00 07/02/23 08:23 Thiamine 100 Mg/Ml 2 Ml Vial IVP 100 mg DAILY [facility] Administration Objective - Vital Signs Vital signs: Vital Signs Temp 96.7 F L 07/02/23 08:00 Pulse 70 07/02/23 10:00 Resp 25 H 07/02/23 10:00 BP 95/65 07/02/23 06:00 Pulse Ox 91 L 07/02/23 10:28 FiO2 50 07/02/23 09:00 Intake & Output 07/01/23 07/02/23 07/02/23 18:59 06:59 18:59 Intake Total 266.204 1493.610 500 Output Total 345 1125 375 Balance 581.838 143.610 125 Weight 122.5 kg 123.6 kg Intake: IV 750 925 500 Dextrose 5% in Water 1, 550 825 300 000 ml @ 75 mls/hr IV . [id number] [facility] Rx#:[id number] Potassium Chloride 20 meq 50 In Water For Injection 1 100ml.bag @ 100 mls/hr IVPB Q1H [facility] Rx#: [id number] cefTRIAXone 2 gm In 50 100 Sodium Chloride 0.9% 50 ml @ 100 mls/hr IVPB Q24HR [facility] Rx#:[id number] metroNIDAZOLE-NS PMX 500 100 100 100 mg In Saline 1 100ml.bag @ 100 mls/hr IVPB Q8HR [facility] Rx#:[id number] Intake, IV Titration 176.838 43.610 Amount Diltiazem 125 mg In 123.917 Sodium Chloride 0.9% 100 ml @ 7.5 MG/HR 7.5 mls/hr IV .[id number] [facility] Rx#: [id number] Norepinephrine 8 mg In 52.921 43.610 Sodium Chloride 0.9% 250 ml @ 0.03 MCG/KG/MIN 7. 396 mls/hr IV .Q24H [facility] Rx#:[id number] Oral 300 Output: Urine 345 1125 375 Other: Voiding Method Indwelling Catheter Indwelling Catheter Indwelling Catheter # Voids 2 ABP, PAP, CO, CI - Last Documented Arterial Blood Pressure 111/59 - Exam -GENERAL: The patient is awake , looks tired on airvo, , mildly confused. Obese HEENT: Pupils are round and equally reacting to light. EOMI. No scleral icterus. No conjunctival pallor. Normocephalic, atraumatic. No pharyngeal erythema. No thyromegaly. CARDIOVASCULAR: S1 and S2 present. No murmurs, rubs, or gallops. -PULMONARY: Chest is limited air entry on both sides, slightly better than yesterday, no wheezing , no crackles. Mildly tachypneic while he is on BiPAP ABDOMEN: Soft, nontender, nondistended, normoactive bowel sounds. No palpable organomegaly. MUSCULOSKELETAL: No joint swelling or deformity. EXTREMITIES: No cyanosis, clubbing, or pedal edema. NEUROLOGICAL: Gross neurological examination did not reveal any focal deficits. SKIN: No rashes. no petechiae. - Labs CBC & Chem 7: 07/02/23 06:00 07/02/23 05:30 Labs: Abnormal Lab Results - Last 24 Hours (Table) 07/01/23 07/02/23 07/02/23 Range/Units 17:15 05:30 06:00 WBC 10.9 H (3.8-10.6) k/uL RBC 4.07 L (4.30-5.90) m/uL MCV 106.3 H (80.0-100.0) fL Plt Count 97 L (150-450) k/uL Neutrophils # 9.9 H (1.3-7.7) k/uL Lymphocytes # 0.2 L (1.0-4.8) k/uL Sodium 149 H 147 H (137-145) mmol/L Chloride 108 H (98-107) mmol/L BUN 134 H* 132 H* (9-20) mg/dL Creatinine 4.00 H 3.69 H (0.66-1.25) mg/dL Glucose 219 H 215 H (74-99) mg/dL POC Glucose (mg/dL) (70-110) mg/dL Calcium 8.3 L 8.2 L (8.4-10.2) mg/dL 07/02/23 Range/Units 08:06 WBC (3.8-10.6) k/uL RBC (4.30-5.90) m/uL MCV (80.0-100.0) fL Plt Count (150-450) k/uL Neutrophils # (1.3-7.7) k/uL Lymphocytes # (1.0-4.8) k/uL Sodium (137-145) mmol/L Chloride (98-107) mmol/L BUN (9-20) mg/dL Creatinine (0.66-1.25) mg/dL Glucose (74-99) mg/dL POC Glucose (mg/dL) 197 H (70-110) mg/dL Calcium (8.4-10.2) mg/dL Microbiology - Last 24 Hours (Table) 06/29/23 17:30 Gram Stain - Final Pericardial Fluid Body Fluid Culture - Final Assessment and Plan Assessment: Acute COPD exacerbation Acute on chronic diastolic CHF with a preserved ejection fraction Acute hypoxemic hypercapnic respiratory failure, secondary to above Possible acute cholecystitis, versus intra-abdominal infection on broad-spectrum antibiotic Pericardial effusion status post pericardial window for drainage A. fib and RVR Acute kidney injury on chronic kidney disease stage IV Moderate to severe aortic stenosis Hypercalcemia secondary to hyperparathyroidism on treatment Alcohol use disorder Nicotine dependence Chronic hypoxic respiratory failure Morbid obesity with BMI 41.7. Plan: Continue with oral amiodarone, monitor heart rate Continue with oxygen at 7 L/m via high flow nasal cannula No pressors currently Continue with Solu-Medrol 60 mg General surgery R following for acute cholecystitis, Antibiotic started with Rocephin and Flagyl Continue with D5W Monitor sodium, creatinine Several consultants of the case with the pulmonary/critical care team, nephrology, neurology. Cardiothoracic surgery team Labs and medication were reviewed.. Continue same treatment. Continue with symptomatic treatment. Resume home medication. Monitor labs and vitals. DVT and GI prophylaxis. Further recommendations as per clinical course of the patient DVT prophylaxis: on eliquis GI Prophylaxis: Pepcid PT/OT: differed Prognosis is guarded
[2023-07-02 11:36] LABS: Glucose,Whole Blood 235 mg/dL (70-110)
--- NOTE | 2023-07-02 11:56 | P.PN ---
Subjective Progress Note Date: 07/02/23 Principal diagnosis: Pericardial effusion, tamponade physiology, acute hypoxemic and hypercapnic respiratory failure requiring BiPAP, a fib with RVR. History of severe aortic stenosis, peak/mean gradient 76/43 mmHg and max velocity 4.35 m/sec, atrial fibrillation status post cardioversion on eliquis for anticoagulation, chronic heart failure, previous tobacco dependence, COPD, PIPPA with home cpap use, daily alcohol use, hypertension, hyperlipidemia, chronic kidney disease, GIB POD #3 bedside pericardial drain insertion under echo guidance with removal of 1 L of bloody pericardial effusion sent for culture and cytology The patient was seen and examined at the bedside this morning sitting up in bed in no acute distress. Currently on airvo. Currently in afib but controlled. Off IV levo. Oriented to person, place, time, situation this morning. Drained from pericardial drain again this morning: proximal port no drainage, mid port 25 mL, and distal port no drainage. Pericardial drain discontinued. No other new concerns. Objective - Vital Signs Vital signs: Vital Signs Temp 96.7 F L 07/02/23 08:00 Pulse 70 07/02/23 10:00 Resp 25 H 07/02/23 10:00 BP 95/65 07/02/23 06:00 Pulse Ox 91 L 07/02/23 10:28 FiO2 50 07/02/23 09:00 Intake & Output 07/01/23 07/02/23 07/02/23 18:59 06:59 18:59 Intake Total 876.969 2737.610 500 Output Total 345 1125 375 Balance 581.838 143.610 125 Weight 122.5 kg 123.6 kg Intake: IV 750 925 500 Dextrose 5% in Water 1, 550 825 300 000 ml @ 75 mls/hr IV . [id number] [facility] Rx#:[id number] Potassium Chloride 20 meq 50 In Water For Injection 1 100ml.bag @ 100 mls/hr IVPB Q1H [facility] Rx#: [id number] cefTRIAXone 2 gm In 50 100 Sodium Chloride 0.9% 50 ml @ 100 mls/hr IVPB Q24HR [facility] Rx#:[id number] metroNIDAZOLE-NS PMX 500 100 100 100 mg In Saline 1 100ml.bag @ 100 mls/hr IVPB Q8HR [facility] Rx#:[id number] Intake, IV Titration 176.838 43.610 Amount Diltiazem 125 mg In 123.917 Sodium Chloride 0.9% 100 ml @ 7.5 MG/HR 7.5 mls/hr IV .[id number] [facility] Rx#: [id number] Norepinephrine 8 mg In 52.921 43.610 Sodium Chloride 0.9% 250 ml @ 0.03 MCG/KG/MIN 7. 396 mls/hr IV .Q24H [facility] Rx#:[id number] Oral 300 Output: Urine 345 1125 375 Other: Voiding Method Indwelling Catheter Indwelling Catheter Indwelling Catheter # Voids 2 ABP, PAP, CO, CI - Last Documented Arterial Blood Pressure 111/59 - Exam CONSTITUTIONAL: Appears comfortable, no acute distress RESPIRATORY: Lungs sounds diminished bilaterally. Respirations even, nonlabored. Currently on airvo with oxygen saturation 95% CARDIOVASCULAR: S1, S2 present. Irregular rate and rhythm, atrial fibrillation on telemetry. Palpable peripheral pulses bilaterally. No edema present. No calf pain or tenderness noted GASTROINTESTINAL: Abdomen soft, nontender, nondistended. Active bowel sounds present 4 quadrants. No documented bowel movement GENITOURINARY: Gordon present draining clear, yellow urine. Output 1470 mL in the last 24 hours INTEGUMENTARY: Skin is warm and dry NEUROLOGIC: Cranial nerves II through XII intact MUSKULOSKELETAL: Able to move all extremities, strength equal bilaterally PSYCHIATRIC: Alert and oriented to person, place, time, situation. Currently cooperative - Allied health notes Allied health notes reviewed: nursing - Labs CBC & Chem 7: 07/02/23 06:00 07/02/23 05:30 Labs: Abnormal Lab Results - Last 24 Hours (Table) 07/01/23 07/02/23 07/02/23 Range/Units 17:15 05:30 06:00 WBC 10.9 H (3.8-10.6) k/uL RBC 4.07 L (4.30-5.90) m/uL MCV 106.3 H (80.0-100.0) fL Plt Count 97 L (150-450) k/uL Neutrophils # 9.9 H (1.3-7.7) k/uL Lymphocytes # 0.2 L (1.0-4.8) k/uL Sodium 149 H 147 H (137-145) mmol/L Chloride 108 H (98-107) mmol/L BUN 134 H* 132 H* (9-20) mg/dL Creatinine 4.00 H 3.69 H (0.66-1.25) mg/dL Glucose 219 H 215 H (74-99) mg/dL POC Glucose (mg/dL) (70-110) mg/dL Calcium 8.3 L 8.2 L (8.4-10.2) mg/dL 07/02/23 07/02/23 Range/Units 08:06 11:34 WBC (3.8-10.6) k/uL RBC (4.30-5.90) m/uL MCV (80.0-100.0) fL Plt Count (150-450) k/uL Neutrophils # (1.3-7.7) k/uL Lymphocytes # (1.0-4.8) k/uL Sodium (137-145) mmol/L Chloride (98-107) mmol/L BUN (9-20) mg/dL Creatinine (0.66-1.25) mg/dL Glucose (74-99) mg/dL POC Glucose (mg/dL) 197 H 235 H (70-110) mg/dL Calcium (8.4-10.2) mg/dL Microbiology - Last 24 Hours (Table) 06/29/23 17:30 Gram Stain - Final Pericardial Fluid Body Fluid Culture - Final - Imaging and Cardiology Chest x-ray: report reviewed, image reviewed Assessment and Plan Assessment: Pericardial effusion without evidence of tamponade status post bedside pericardial drain insertion under echo guidance with removal of 1 L of bloody pericardial effusion sent for culture and cytology Acute hypoxemic and hypercapnic respiratory failure requiring BiPAP A. fib with RVR Shortness of breath, secondary to above Severe aortic stenosis, peak/mean gradient 76/43 mmHg and max velocity 4.35 m/sec History of atrial fibrillation status post cardioversion on eliquis for anticoagulation Chronic heart failure Previous tobacco dependence COPD PIPPA with home cpap use Daily alcohol use Hypertension Hyperlipidemia Chronic kidney disease GIB Plan: Pericardial drain discontinued Airvo/BiPAP management per pulmonology A. fib management per cardiology, may start anticoagulation from our standpoint Medical management of other comorbidities per internal medicine, nephro We'll continue to see on an as-needed basis. Please call us with any further questions
--- NOTE | 2023-07-02 11:59 | P.PN ---
Subjective Progress Note Date: 07/02/23 Principal diagnosis: Respiratory failure. Acute on chronic hypoxic and hypercapnic respiratory failure This is a 73-year-old white male with history of multiple medical problems i ncluding chronic congestive heart failure, COPD, chronic kidney disease, chronic hypoxic respiratory failure, obstructive sleep apnea syndrome, maintained on CPAP now patient was transferred from [facility] with 2 days history of increased shortness of breath. I have seen this patient in the past and his last evaluation in the hospital was on 02/16/2023. At that time the patient presented with acute on chronic hypoxic and hypercapnic respiratory failure with congestive heart failure and COPD. He should also had moderate severe aortic stenosis, and morbid obesity as well as chronic atrial fibrillation. Back then the patient was treated mostly aggressively with diuretics, and he was eventually discharged home after almost a week stay in the ICU. This time the patient has a very similar presentation, I saw the patient in the ER, and his is at bedside. Patient is now on BiPAP which I have adjusted to IPAP of 16 and EPAP 6, and he is also on 100% FiO2. ABG is pending, earlier venous ABG showed a pCO2 of 120 and pH of 7.01. After I evaluated the patient, I recommended immediate transfer to the ICU ABG, ultrasound of the chest, I cut down his IV fluid to KVO, started the patient on Lasix drip at 10 mg per hour. And explained to the that the patient may require intubation mechanical ventilation if his condition does not improve much and a short period of time. For low blood pressure may consider using norepinephrine, would definitely avoid using fluids at this point. Labs were reviewed chest x-ray was reviewed his BUN is 99 creatinine is 5.25, and his creatinine only a few days ago was 2.07. Apparently he is developing a worsening picture of chronic kidney disease. Could be cardiorenal. BNP level is 14,900 Reevaluated today on 06/27/2023, patient remains in the ICU, remains on Lasix drip at 10 mg per hour, amiodarone 0.5 mg/m for atrial fibrillation/RVR which she developed last night patient does have chronic history of atrial fibrillation remains on norepinephrine at 0.04 mcg/kg/m, he is on Precedex at 0.2 mcg/kg/hr, IV fluid at 20 mL per hour in the form of 0.9 normal saline. Blood pressure is noted to be borderline. Hence patient had a left subclavian triple-lumen catheter placed and a left radial arterial line placement. Repeat ABG this morning continues to show significant metabolic and respiratory acidosis pO2 of 79 pCO2 62 pH of 7.21, potassium is up to 5.19, patient was given 1 amp of bicarb for his acidosis. His BUN is 107 creatinine 5.17, slightly better compared to yesterday, patient is being evaluated by nephrology. Remains on BiPAP at 16/6/75% FiO2. And overall his clinical status is critically ill/marginal. Patient is definitely high risk for intubation mechanical ventilation, the patient and his are both aware of this, however at this point I will hold on mechanically ventilated the patient. We'll continue BiPAP, continue Lasix drip, and continue pressors patient may eventually require hemodialysis. Ultrasound of the chest showed small bilateral pleural effusions left more so than right, the left sided pocket is not large enough to consider safe left sided thoracentesis. Patient was reevaluated today on 06/2023, remains in the ICU, remains on Lasix drip at 10 mg per hour, remains on BiPAP at 12/6/75%. Patient is still requiring Precedex at 0.6 mcg/kg/h, norepinephrine at 0.03 mcg/kg/m. Patient is negative balance over the last 24 hours about 2 L. And he is steadily improving but remains critically ill, and simply requiring pressors. ABG showed a pO2 of 76 pCO2 of 50 pH of 7.34, significantly improved compared to his initial ABG on admission where his pCO2 was in the 120 range. Patient remains on Rocephin and Flagyl, his CT of the abdomen raised the possibility of acute cholecystitis, but clinically I do not see any evidence of cholecystitis, the patient has no pain or tenderness in the right upper quadrant. Being considered for a HIDA scan. CT of the brain came back negative for acute process. WBC count today is 13.9 hemoglobin 15.4. Platelets are 226, basic metabolic profile is normal BUN is 111 creatinine is down to 4.44 improving in spite of aggressive diuresis on this patient. If her enzymes are basically normal. Chest x-ray this morning showed cardiomegaly, pulmonary vascular congestion, bilateral pleural effusions, however based on ultrasound, the left-sided pleural effusion was not large enough to consider safe thoracentesis Progress note dated 06/29/2023. 73-year-old male seen in the intensive care unit, room 262. The patient is scheduled to have a pericardial window done today, June 29. Briefly, the patient was admitted to the hospital June 26, for CHF, acute mental status changes, and a pericardial effusion. The patient was admitted to the intensive care unit, on the day of admission. The patient's been between BiPAP, with settings of 12/6, and 75%, or AIRVO, at 60 L/m with an FiO2 of 80%. The patient is currently on norepinephrine at 2 mcg/m, dexmedetomidine at 0.3 mcg/kg/h, amiodarone at 0.5 mg/m, a Lasix drip at 10 mg an hour, and saline at KVO. White count is 13.7, hemoglobin 16, hematocrit 48.9, and a platelet count of 203,000. Sodium 143, potassium 4.1, chlorides 102, CO2 28, BUN 117, and creatinine 3.83. Pro-calcitonin level is 0.47, from yesterday. Chest x-ray shows cardiomegaly, with bibasilar effusions. Progress note dated 06/30/2023. 73-year-old male with a history of pericardial effusion. The patient had a bedside procedure done yesterday, to drain the pericardial effusion. About 1 L of fluid was removed. Currently, he's on AIRVO, at 60 L/m, with an FiO2 of 94%. He continues on Lasix drip at 10 mg an hour, norepinephrine at 7.1 mcg/m, amiodarone at 0.5 mg/m, and a Cardizem drip of 7.5 mg an hour. The patient spent some time on BiPAP as well. White count 15.1, hemoglobin 15, hematocrit 47.6, and platelet count 182,000. Sodium 147, potassium 3.3, chlorides 105, CO2 28, BUN 122, and creatinine 3.72. Glucose 193. Calcium is 9.0. Chest x-ray shows a pericardial drain. There is some volume loss of the left lower lobe, and small bilateral pleural effusions. Progress note dated 07/01/2023. 73-year-old male with history of pericardial effusion. The patient is postop d ay #2, status post pericardial window drainage catheter. He seen today in room 262. He continues on either AIRVO, at 50 L/m, with an FiO2 of 75%, or BiPAP, with settings of 12/6, and 85%. The patient continues on norepinephrine at 3.5 mcg/m, D5W at 50 mL an hour, and Cardizem drip at 7.5 mg an hour. The patient's pericardial catheter, was drained yesterday, and 235 mL of fluid was removed. White count 11.3, hemoglobin 14.3, hematocrit 44.7, and platelet count 136,000. Sodium 148, potassium 3.7, chlorides 107, CO2 27, BUN 129, and creatinine 3.82. Glucose 170. Calcium is 8.6. Chest x-ray shows cardiomegaly, and pulmonary vascular congestion, small bilateral effusions. Progress note dated 07/02/2023. 73-year-old male with history of pericardial effusion. The patient is postop day #3, status post pericardial window with drainage catheter. He seen today in room 262. Currently, he is on AIRVO, at 35 L/m with an FiO2 of 50%. The patient is getting D5W at 75 mL an hour. Over the last couple of days, the fluid removed from the pericardial space, has been very limited. White count is 10.9, hemoglobin 13.4, hematocrit 3.2, and platelet count 97,000. Sodium 147, potassium 3.6, chlorides 108, CO2 29, BUN 132, and creatinine 3.69. Glucose 2:15, calcium is 8.2. Chest x-ray shows cardiomegaly, and mild CHF with pulmonary vascular congestion. Objective - Vital Signs Vital signs: Vital Signs Temp 96.7 F L 07/02/23 08:00 Pulse 70 07/02/23 10:00 Resp 25 H 07/02/23 10:00 BP 95/65 07/02/23 06:00 Pulse Ox 91 L 07/02/23 10:28 FiO2 50 07/02/23 09:00 Intake & Output 07/01/23 07/02/23 07/02/23 18:59 06:59 18:59 Intake Total 574.670 1656.610 500 Output Total 345 1125 375 Balance 581.838 143.610 125 Weight 122.5 kg 123.6 kg 123.6 kg Intake: IV 750 925 500 Dextrose 5% in Water 1, 550 825 300 000 ml @ 75 mls/hr IV . [id number] [facility] Rx#:[id number] Potassium Chloride 20 meq 50 In Water For Injection 1 100ml.bag @ 100 mls/hr IVPB Q1H [facility] Rx#: [id number] cefTRIAXone 2 gm In 50 100 Sodium Chloride 0.9% 50 ml @ 100 mls/hr IVPB Q24HR [facility] Rx#:[id number] metroNIDAZOLE-NS PMX 500 100 100 100 mg In Saline 1 100ml.bag @ 100 mls/hr IVPB Q8HR [facility] Rx#:[id number] Intake, IV Titration 176.838 43.610 Amount Diltiazem 125 mg In 123.917 Sodium Chloride 0.9% 100 ml @ 7.5 MG/HR 7.5 mls/hr IV .[id number] [facility] Rx#: [id number] Norepinephrine 8 mg In 52.921 43.610 Sodium Chloride 0.9% 250 ml @ 0.03 MCG/KG/MIN 7. 396 mls/hr IV .Q24H [facility] Rx#:[id number] Oral 300 Output: Urine 345 1125 375 Other: Voiding Method Indwelling Catheter Indwelling Catheter Indwelling Catheter # Voids 2 ABP, PAP, CO, CI - Last Documented Arterial Blood Pressure 111/59 - Exam No acute distress, currently on AIRVO. HEENT examination is grossly unremarkable. Neck supple. Full range of motion. No adenopathy thyromegaly or neck vein distention. Cardiovascular examination reveals regular rhythm rate. S1-S2 normal. No S3 or S4. No discernible murmur noted. Heart rate 70 bpm. Lungs reveal scattered rhonchi. Breath sounds equal bilaterally. Saturations are 91 %. No wheezes or crackles. The pericardial drainage catheter is noted in the left upper chest area. Abdomen soft bowel sounds are heard. No masses or tenderness. Extremities are intact. No cyanosis clubbing or edema. Skin is without rash or lesion. Neurologic examination reveals a confused white male. - Labs CBC & Chem 7: 07/02/23 06:00 07/02/23 05:30 Labs: Abnormal Lab Results - Last 24 Hours (Table) 07/01/23 07/02/23 07/02/23 Range/Units 17:15 05:30 06:00 WBC 10.9 H (3.8-10.6) k/uL RBC 4.07 L (4.30-5.90) m/uL MCV 106.3 H (80.0-100.0) fL Plt Count 97 L (150-450) k/uL Neutrophils # 9.9 H (1.3-7.7) k/uL Lymphocytes # 0.2 L (1.0-4.8) k/uL Sodium 149 H 147 H (137-145) mmol/L Chloride 108 H (98-107) mmol/L BUN 134 H* 132 H* (9-20) mg/dL Creatinine 4.00 H 3.69 H (0.66-1.25) mg/dL Glucose 219 H 215 H (74-99) mg/dL POC Glucose (mg/dL) (70-110) mg/dL Calcium 8.3 L 8.2 L (8.4-10.2) mg/dL 07/02/23 07/02/23 Range/Units 08:06 11:34 WBC (3.8-10.6) k/uL RBC (4.30-5.90) m/uL MCV (80.0-100.0) fL Plt Count (150-450) k/uL Neutrophils # (1.3-7.7) k/uL Lymphocytes # (1.0-4.8) k/uL Sodium (137-145) mmol/L Chloride (98-107) mmol/L BUN (9-20) mg/dL Creatinine (0.66-1.25) mg/dL Glucose (74-99) mg/dL POC Glucose (mg/dL) 197 H 235 H (70-110) mg/dL Calcium (8.4-10.2) mg/dL Microbiology - Last 24 Hours (Table) 06/29/23 17:30 Gram Stain - Final Pericardial Fluid Body Fluid Culture - Final Assessment and Plan Assessment: Acute on chronic hypoxemic and hypercapnic respiratory failure. Pericardial effusion, S/P pericardial window, 06/29/2023. Diastolic CHF. Acute on chronic kidney disease. Metabolic encephalopathy. Morbid obesity. Chronic atrial fibrillation, with paroxysmal atrial fibrillation/RVR. Moderately severe aortic stenosis. Obstructive sleep apnea syndrome. History of alcoholism. Hyperlipidemia. Plan: Plan dated 06/29/2023. The patient is scheduled to have a pericardial window, performed today, by cardiothoracic surgery. Otherwise, the patient remains critically ill in the intensive care unit, room 262. The patient's on norepinephrine at 2 mcg/m, dexmedetomidine 0.3 mcg/kg/h, amiodarone at 0.5 mg/m, and a Lasix drip at 10 mg an hour. The patient has been between BiPAP in the AIRVO. Currently he is on BiPAP. The patient came to the intensive care unit, on June 26. We will continue to follow the patient, and make recommendations along the way. Prognosis is certainly guarded. Labs, x-rays, and medications are all reviewed. Plan dated 06/30/2023. The patient had a bedside pericardial drain placed yesterday. About 1 L fluid was removed. The patient continues on Lasix drip at 10 mg an hour, norepinephr ine at 7.1 mcg/m, amiodarone at 0.5 mg/m, and Cardizem drip at 7.5 mg an hour. The patient is between AIRVO, and BiPAP. Currently, he is on AIRVO at 60 L/m with an FiO2 of 94%. He we'll continue to follow the patient, and make recommendations along the way. Prognosis is certainly guarded. The fluid was sent to laboratory for analysis. Plan dated 07/01/2023. The patient remains critically O, and is seen in the intensive care unit, room 262. The patient continues on AIRVO, at 50 L/m, with an FiO2 of 75%. He didn't use of BiPAP last night, for short time, according to respiratory therapy. The patient continues on norepinephrine at 3.5 mcg/m, D5W at 50 mL an hour, and Cardizem drip at 7.5 mg an hour. Yesterday, 235 mL of fluid was removed from the pericardium, via the catheter. Labs, x-rays, and medications are reviewed. We will continue to follow the patient, and make recommendations along the way. Prognosis is guarded. Plan dated 07/02/2023. The patient remains in the intensive care unit, his overall situation remains somewhat tenuous. He continues on AIRVO, at 35 L/m with an FiO2 of 50%. Saturations are about 90-91%. He continues on D5W at 75 mL an hour. The urbano ent has had minimal fluid output from the paracardial drainage catheter. That may be removed by cardiothoracic surgery. Labs, x-rays, medications are reviewed. We will continue to follow the patient, and make recommendations along the way. The patient's overall condition remains guarded, although, he was a bit more awake and alert today. Time with Patient: Greater than 30
--- NOTE | 2023-07-02 13:01 | P.PN ---
Subjective Patient is seen for follow-up for acute kidney injury. Renal function has improved. Urine output now at 40-50 ML per hour Patient is maintained on nasal cannula now at 7 L.. FiO2 has been decreased Serum creatinine at 3.6 today. BUN disproportionately elevated secondary to steroids. Status post pericardiocentesis of 1 L for large pericardial effusion on 06/29/2023. Patient had another pericardiocentesis but only about 200 mL of fluid was obtained. Sodium decreased to 147 from 149 yesterday. Patient was started on D5W, currently at 75 mL an hour. Objective - Vital Signs Vital signs: Vital Signs Temp 96.7 F L 07/02/23 12:00 Pulse 74 07/02/23 12:48 Resp 12 07/02/23 12:30 BP 88/66 07/02/23 12:00 Pulse Ox 91 L 07/02/23 12:33 FiO2 50 07/02/23 09:00 Intake & Output 07/01/23 07/02/23 07/02/23 18:59 06:59 18:59 Intake Total 288.226 4181.610 650 Output Total 345 1125 490 Balance 581.838 143.610 160 Weight 122.5 kg 123.6 kg 123.6 kg Intake: IV 750 925 650 Dextrose 5% in Water 1, 550 825 450 000 ml @ 75 mls/hr IV . [id number] [facility] Rx#:[id number] Potassium Chloride 20 meq 50 In Water For Injection 1 100ml.bag @ 100 mls/hr IVPB Q1H [facility] Rx#: [id number] cefTRIAXone 2 gm In 50 100 Sodium Chloride 0.9% 50 ml @ 100 mls/hr IVPB Q24HR [facility] Rx#:[id number] metroNIDAZOLE-NS PMX 500 100 100 100 mg In Saline 1 100ml.bag @ 100 mls/hr IVPB Q8HR [facility] Rx#:[id number] Intake, IV Titration 176.838 43.610 Amount Diltiazem 125 mg In 123.917 Sodium Chloride 0.9% 100 ml @ 7.5 MG/HR 7.5 mls/hr IV .[id number] [facility] Rx#: [id number] Norepinephrine 8 mg In 52.921 43.610 Sodium Chloride 0.9% 250 ml @ 0.03 MCG/KG/MIN 7. 396 mls/hr IV .Q24H [facility] Rx#:[id number] Oral 300 Output: Urine 345 1125 490 Other: Voiding Method Indwelling Catheter Indwelling Catheter Indwelling Catheter # Voids 2 ABP, PAP, CO, CI - Last Documented Arterial Blood Pressure 103/46 - Exam Patient is currently on nasal cannula, 7 L He is awake. Able to carry on a conversation. Remains confused on and off Examination of the heart S1 and S2 Examination of the lungs bilateral breath sounds are heard Abdomen is soft nontender, obese Examination of lower extremity shows no edema - Labs CBC & Chem 7: 07/02/23 06:00 07/02/23 11:42 Labs: Abnormal Lab Results - Last 24 Hours (Table) 07/01/23 07/02/23 07/02/23 Range/Units 17:15 05:30 06:00 WBC 10.9 H (3.8-10.6) k/uL RBC 4.07 L (4.30-5.90) m/uL MCV 106.3 H (80.0-100.0) fL Plt Count 97 L (150-450) k/uL Neutrophils # 9.9 H (1.3-7.7) k/uL Lymphocytes # 0.2 L (1.0-4.8) k/uL Sodium 149 H 147 H (137-145) mmol/L Chloride 108 H (98-107) mmol/L BUN 134 H* 132 H* (9-20) mg/dL Creatinine 4.00 H 3.69 H (0.66-1.25) mg/dL Glucose 219 H 215 H (74-99) mg/dL POC Glucose (mg/dL) (70-110) mg/dL Calcium 8.3 L 8.2 L (8.4-10.2) mg/dL 07/02/23 07/02/23 Range/Units 08:06 11:34 WBC (3.8-10.6) k/uL RBC (4.30-5.90) m/uL MCV (80.0-100.0) fL Plt Count (150-450) k/uL Neutrophils # (1.3-7.7) k/uL Lymphocytes # (1.0-4.8) k/uL Sodium (137-145) mmol/L Chloride (98-107) mmol/L BUN (9-20) mg/dL Creatinine (0.66-1.25) mg/dL Glucose (74-99) mg/dL POC Glucose (mg/dL) 197 H 235 H (70-110) mg/dL Calcium (8.4-10.2) mg/dL Microbiology - Last 24 Hours (Table) 06/29/23 17:30 Anaerobic Culture - Preliminary Pericardial Fluid 06/29/23 17:30 Gram Stain - Final Pericardial Fluid Body Fluid Culture - Final Assessment and Plan Assessment: 1. Acute kidney injury, ATN currently nonoliguric. Component of cardiorenal syndrome as well. Indwelling Gordon catheter present. BUN disproportionately elevated secondary to steroids. Renal function has improved. Off of diuretics. 2. Hyperkalemia associated with acute kidney injury. No evidence of obstructi on on ultrasound. Improved with improving urine output. 3. Acute hypercapnic respiratory failure, switched from BiPAP to airVO and today on nasal cannula. 4. Chronic kidney disease NKF stage IV with baseline creatinine around 2 mg/dL etiology is likely nephrosclerosis. Previous UA showed negative to trace protein. UA this admission shows 2+ protein. This will be monitored and workup will be performed down the road. 5. Hypercalcemia associated with primary hyperparathyroidism, started on S ensipar last admission. Patient's was supposed to have nuclear scan of the parathyroid gland performed as outpatient. 6. Moderate pulmonary hypertension 7. Morbid obesity 8. A. fib with RVR currently maintained on amiodarone drip. 9. Large pericardial effusion status post pericardiocentesis of 1 L and then about 200 mL the next day. 10. Hypernatremia associated with free water deficit Plan: Continue D5W Consider decreasing steroids Repeat labs in a.m. Hold Sensipar as calcium is low now. We will continue to monitor for need for renal replacement therapy on a daily basis.
[2023-07-02 17:10] LABS: Glucose,Whole Blood 287 mg/dL (70-110)
[2023-07-02] MEDS: NOREPINEPHRINE 8 MG in SODIUM CHLORIDE 0.9% 250 ML IV SCH (21:10)
[2023-07-02 21:43] LABS: Glucose,Whole Blood 290 mg/dL (70-110)
[2023-07-02] MEDS: MONTELUKAST 10 MG TAB PO SCH (21:57)
[2023-07-02] MEDS: METOPROLOL TARTRATE 12.5 MG TAB PO SCH (21:58)
[2023-07-02] MEDS: ATORVASTATIN 80 MG TAB PO SCH (21:58)
--- NOTE | 2023-07-03 01:20 | PN ---
PROGRESS NOTE SUBJECTIVE: Mr. Barajas is in atrial fib, rate is well controlled. We will decrease the metoprolol tartrate to 12.5 mg b.i.d. Continue amiodarone. His pericardial catheter has been taken out. No further effusion. He is feeling better hemodynamically. Plan is to continue current medications. Etiology of pericardial effusion seems elusive and not clear. We will see what the testing shows. We will continue current medications. OBJECTIVE: HEART: S1, S2 heard normally. Irregular rate and rhythm, short systolic murmur. LUNGS: Reveal improved air entry. ABDOMEN: Soft. EXTREMITIES: Lower extremities reveal diminished pulses. NEUROLOGIC: Central nervous system is normal. MMODL / IJN: [id number] /
[2023-07-03 03:43] LABS: HGB 13.1 gm/dL (13.0-17.5); Hypochromasia Moderate; MCH 32.7 pg (25.0-35.0); MCHC 31.1 g/dL (31.0-37.0); MCV 105.1 fL (80.0-100.0); Macrocytosis Moderate; Mean Platelet Volume 12.1; RDW 14.7 % (11.5-15.5); WBC 12.2 k/uL (3.8-10.6)
[2023-07-03 03:51] LABS: African American GFR (CKD) 19 (>60 ml/min/1.73 sqM); Anion Gap 12 mmol/L; Calcium 7.9 mg/dL (8.4-10.2); Carbon Dioxide 26 mmol/L (22-30); Chloride 105 mmol/L (98-107); Glucose 225 mg/dL (74-99); Non-African American GFR(CKD) 17 (>60 ml/min/1.73 sqM); Potassium 3.7 mmol/L (3.5-5.1); Sodium 143 mmol/L (137-145)
[2023-07-03 03:53] LABS: Blood Urea Nitrogen 120 mg/dL (9-20)
[2023-07-03 04:20] LABS: Platelet Count 86 k/uL (150-450)
[2023-07-03 06:34] LABS: Glucose,Whole Blood 199 mg/dL (70-110)
[2023-07-03] MEDS: MIDODRINE 5 MG TAB PO SCH ×3 (06:58→17:16)
[2023-07-03] MEDS: INSULIN ASPART (NovoLOG) 100 UNIT/ML VIAL SQ SCH ×4 (06:59→20:29)
[2023-07-03] MEDS: IPRATROPIUM-ALBUTEROL 3 ML NEB INHALATION SCH ×4 (08:00→19:50)
[2023-07-03] MEDS: BUDESONIDE 0.5 MG/2 ML NEBU INHALATION SCH (08:00)
[2023-07-03] MEDS: metroNIDAZOLE-NS PMX 500 MG in SALINE 1 100ML.BAG IVPB SCH (08:37)
[2023-07-03] MEDS: METOPROLOL TARTRATE 12.5 MG TAB PO SCH ×2 (09:56→20:28)
[2023-07-03] MEDS: FAMOTIDINE 20 MG/2 ML VIAL IV SCH (09:57)
[2023-07-03] MEDS: SENNOSIDES 8.6 MG TAB PO SCH (09:58)
[2023-07-03] MEDS: HEPARIN SODIUM,PORCINE 5,000 UNIT/ML 1 ML VIAL SQ SCH ×2 (09:58→20:28)
[2023-07-03] MEDS: AMIODARONE 200 MG TAB PO SCH ×2 (09:58→20:28)
[2023-07-03] MEDS: FOLIC ACID 1 MG TAB PO SCH (09:59)
--- NOTE | 2023-07-03 10:46 | XR ---
EXAMINATION TYPE: XR chest 1V portable DATE OF EXAM: 07/03/2023 Comparison: 07/02/2023 Clinical History: 73-year-old male Follow up CHF Findings: The subclavian CVC tip not clearly seen beyond the mid SVC level. Heart moderately enlarged. Diffuse interstitial density persists. Ongoing moderate left pleural effusion with underlying opacity. Some worsening aeration at the right base. Impression: 1. Ongoing CHF with pulmonary vascular congestion and moderate cardiomegaly. 2. Ongoing moderate left pleural effusion with adjacent atelectasis and/or consolidation. Increasing small right pleural effusion along with increasing adjacent right basilar atelectasis and/or consolid ation.
[2023-07-03 11:09] LABS: Glucose,Whole Blood 262 mg/dL (70-110)
--- NOTE | 2023-07-03 11:31 | P.PN ---
Subjective Progress Note Date: 07/03/23 Principal diagnosis: Respiratory failure. Acute on chronic hypoxic and hypercapnic respiratory failure This is a 73-year-old white male with history of multiple medical problems i ncluding chronic congestive heart failure, COPD, chronic kidney disease, chronic hypoxic respiratory failure, obstructive sleep apnea syndrome, maintained on CPAP now patient was transferred from [facility] with 2 days history of increased shortness of breath. I have seen this patient in the past and his last evaluation in the hospital was on 02/16/2023. At that time the patient presented with acute on chronic hypoxic and hypercapnic respiratory failure with congestive heart failure and COPD. He should also had moderate severe aortic stenosis, and morbid obesity as well as chronic atrial fibrillation. Back then the patient was treated mostly aggressively with diuretics, and he was eventually discharged home after almost a week stay in the ICU. This time the patient has a very similar presentation, I saw the patient in the ER, and his is at bedside. Patient is now on BiPAP which I have adjusted to IPAP of 16 and EPAP 6, and he is also on 100% FiO2. ABG is pending, earlier venous ABG showed a pCO2 of 120 and pH of 7.01. After I evaluated the patient, I recommended immediate transfer to the ICU ABG, ultrasound of the chest, I cut down his IV fluid to KVO, started the patient on Lasix drip at 10 mg per hour. And explained to the that the patient may require intubation mechanical ventilation if his condition does not improve much and a short period of time. For low blood pressure may consider using norepinephrine, would definitely avoid using fluids at this point. Labs were reviewed chest x-ray was reviewed his BUN is 99 creatinine is 5.25, and his creatinine only a few days ago was 2.07. Apparently he is developing a worsening picture of chronic kidney disease. Could be cardiorenal. BNP level is 14,900 Reevaluated today on 06/27/2023, patient remains in the ICU, remains on Lasix drip at 10 mg per hour, amiodarone 0.5 mg/m for atrial fibrillation/RVR which she developed last night patient does have chronic history of atrial fibrillation remains on norepinephrine at 0.04 mcg/kg/m, he is on Precedex at 0.2 mcg/kg/hr, IV fluid at 20 mL per hour in the form of 0.9 normal saline. Blood pressure is noted to be borderline. Hence patient had a left subclavian triple-lumen catheter placed and a left radial arterial line placement. Repeat ABG this morning continues to show significant metabolic and respiratory acidosis pO2 of 79 pCO2 62 pH of 7.21, potassium is up to 5.19, patient was given 1 amp of bicarb for his acidosis. His BUN is 107 creatinine 5.17, slightly better compared to yesterday, patient is being evaluated by nephrology. Remains on BiPAP at 16/6/75% FiO2. And overall his clinical status is critically ill/marginal. Patient is definitely high risk for intubation mechanical ventilation, the patient and his are both aware of this, however at this point I will hold on mechanically ventilated the patient. We'll continue BiPAP, continue Lasix drip, and continue pressors patient may eventually require hemodialysis. Ultrasound of the chest showed small bilateral pleural effusions left more so than right, the left sided pocket is not large enough to consider safe left sided thoracentesis. Patient was reevaluated today on 06/2023, remains in the ICU, remains on Lasix drip at 10 mg per hour, remains on BiPAP at 12/6/75%. Patient is still requiring Precedex at 0.6 mcg/kg/h, norepinephrine at 0.03 mcg/kg/m. Patient is negative balance over the last 24 hours about 2 L. And he is steadily improving but remains critically ill, and simply requiring pressors. ABG showed a pO2 of 76 pCO2 of 50 pH of 7.34, significantly improved compared to his initial ABG on admission where his pCO2 was in the 120 range. Patient remains on Rocephin and Flagyl, his CT of the abdomen raised the possibility of acute cholecystitis, but clinically I do not see any evidence of cholecystitis, the patient has no pain or tenderness in the right upper quadrant. Being considered for a HIDA scan. CT of the brain came back negative for acute process. WBC count today is 13.9 hemoglobin 15.4. Platelets are 226, basic metabolic profile is normal BUN is 111 creatinine is down to 4.44 improving in spite of aggressive diuresis on this patient. If her enzymes are basically normal. Chest x-ray this morning showed cardiomegaly, pulmonary vascular congestion, bilateral pleural effusions, however based on ultrasound, the left-sided pleural effusion was not large enough to consider safe thoracentesis Progress note dated 06/29/2023. 73-year-old male seen in the intensive care unit, room 262. The patient is scheduled to have a pericardial window done today, June 29. Briefly, the patient was admitted to the hospital June 26, for CHF, acute mental status changes, and a pericardial effusion. The patient was admitted to the intensive care unit, on the day of admission. The patient's been between BiPAP, with settings of 12/6, and 75%, or AIRVO, at 60 L/m with an FiO2 of 80%. The patient is currently on norepinephrine at 2 mcg/m, dexmedetomidine at 0.3 mcg/kg/h, amiodarone at 0.5 mg/m, a Lasix drip at 10 mg an hour, and saline at KVO. White count is 13.7, hemoglobin 16, hematocrit 48.9, and a platelet count of 203,000. Sodium 143, potassium 4.1, chlorides 102, CO2 28, BUN 117, and creatinine 3.83. Pro-calcitonin level is 0.47, from yesterday. Chest x-ray shows cardiomegaly, with bibasilar effusions. Progress note dated 06/30/2023. 73-year-old male with a history of pericardial effusion. The patient had a bedside procedure done yesterday, to drain the pericardial effusion. About 1 L of fluid was removed. Currently, he's on AIRVO, at 60 L/m, with an FiO2 of 94%. He continues on Lasix drip at 10 mg an hour, norepinephrine at 7.1 mcg/m, amiodarone at 0.5 mg/m, and a Cardizem drip of 7.5 mg an hour. The patient spent some time on BiPAP as well. White count 15.1, hemoglobin 15, hematocrit 47.6, and platelet count 182,000. Sodium 147, potassium 3.3, chlorides 105, CO2 28, BUN 122, and creatinine 3.72. Glucose 193. Calcium is 9.0. Chest x-ray shows a pericardial drain. There is some volume loss of the left lower lobe, and small bilateral pleural effusions. Progress note dated 07/01/2023. 73-year-old male with history of pericardial effusion. The patient is postop d ay #2, status post pericardial window drainage catheter. He seen today in room 262. He continues on either AIRVO, at 50 L/m, with an FiO2 of 75%, or BiPAP, with settings of 12/6, and 85%. The patient continues on norepinephrine at 3.5 mcg/m, D5W at 50 mL an hour, and Cardizem drip at 7.5 mg an hour. The patient's pericardial catheter, was drained yesterday, and 235 mL of fluid was removed. White count 11.3, hemoglobin 14.3, hematocrit 44.7, and platelet count 136,000. Sodium 148, potassium 3.7, chlorides 107, CO2 27, BUN 129, and creatinine 3.82. Glucose 170. Calcium is 8.6. Chest x-ray shows cardiomegaly, and pulmonary vascular congestion, small bilateral effusions. Progress note dated 07/02/2023. 73-year-old male with history of pericardial effusion. The patient is postop day #3, status post pericardial window with drainage catheter. He seen today in room 262. Currently, he is on AIRVO, at 35 L/m with an FiO2 of 50%. The patient is getting D5W at 75 mL an hour. Over the last couple of days, the fluid removed from the pericardial space, has been very limited. White count is 10.9, hemoglobin 13.4, hematocrit 3.2, and platelet count 97,000. Sodium 147, potassium 3.6, chlorides 108, CO2 29, BUN 132, and creatinine 3.69. Glucose 2:15, calcium is 8.2. Chest x-ray shows cardiomegaly, and mild CHF with pulmonary vascular congestion. Progress note dated 07/03/2023. 73-year-old male with a history of pericardial effusion, postop day #4, status post pericardial window, which drainage catheter. The catheter has subsequently been removed. The patient is seen today in room 253. The patient is currently on AIRVO, with settings of 35 L/m, and an FiO2 of 60%. He's not receiving any IV fluids. Solu-Medrol will be discontinued. He apparently spent a few hours on BiPAP last night, with settings of 12/6, at the percent. The patient has been downgraded, and can be transferred out of the ICU. Laboratory data today includes a white count 12.2, hemoglobin 13.1, hematocrit 42, and platelet count 86,000. Sodium 143, potassium 3.7, chlorides 105, CO2 26, BUN 120, and creatinine 3.43. Calcium is 7.9. Culture data is pending or negative. Chest x-ray shows findings of CHF, and cardiomegaly. Small to moderate pleural effusion, left greater than right. Objective - Vital Signs Vital signs: Vital Signs Temp 97.6 F 07/03/23 08:00 Pulse 71 07/03/23 11:20 Resp 12 07/03/23 08:00 BP 110/81 07/03/23 08:00 Pulse Ox 93 L 07/03/23 08:00 FiO2 60 07/03/23 11:22 Intake & Output 07/02/23 07/03/23 07/03/23 18:59 06:59 18:59 Intake Total 1595 250 Output Total 915 905 Balance 680 -655 Weight 123.6 kg 124.5 kg Intake: IV 875 100 Dextrose 5% in Water 1, 675 000 ml @ 75 mls/hr IV . [id number] GERTRUDIS Rx#:[id number] cefTRIAXone 2 gm In 100 Sodium Chloride 0.9% 50 ml @ 100 mls/hr IVPB Q24HR GERTRUDIS Rx#:[id number] metroNIDAZOLE-NS PMX 500 100 100 mg In Saline 1 100ml.bag @ 100 mls/hr IVPB Q8HR GERTRUDIS Rx#:[id number] Oral 720 150 Output: Urine 915 905 Other: Voiding Method Indwelling Catheter Indwelling Catheter # Bowel Movements 1 ABP, PAP, CO, CI - Last Documented Arterial Blood Pressure 98/49 - Exam No acute distress, currently on AIRVO. AIRVO settings are 35 L/m, with an FiO2 of 60%. HEENT examination is grossly unremarkable. Neck supple. Full range of motion. No adenopathy thyromegaly or neck vein distention. Cardiovascular examination reveals regular rhythm rate. S1-S2 normal. No S3 or S4. No discernible murmur noted. Heart rate 71 bpm. Lungs reveal scattered rhonchi. Breath sounds equal bilaterally. Saturations are 93 %. No wheezes or crackles. Abdomen soft bowel sounds are heard. No masses or tenderness. Extremities are intact. No cyanosis clubbing or edema. Skin is without rash or lesion. Neurologic examination reveals the patient to be alert and oriented. - Labs CBC & Chem 7: 07/03/23 03:30 07/03/23 03:30 Labs: Abnormal Lab Results - Last 24 Hours (Table) 07/02/23 07/02/23 07/02/23 Range/Units 11:34 17:09 21:41 WBC (3.8-10.6) k/uL RBC (4.30-5.90) m/uL MCV (80.0-100.0) fL Plt Count (150-450) k/uL BUN (9-20) mg/dL Creatinine (0.66-1.25) mg/dL Glucose (74-99) mg/dL POC Glucose (mg/dL) 235 H 287 H 290 H (70-110) mg/dL Calcium (8.4-10.2) mg/dL 07/03/23 07/03/23 07/03/23 Range/Units 03:30 03:30 06:32 WBC 12.2 H (3.8-10.6) k/uL RBC 4.00 L (4.30-5.90) m/uL MCV 105.1 H (80.0-100.0) fL Plt Count 86 L (150-450) k/uL BUN 120 H* (9-20) mg/dL Creatinine 3.43 H (0.66-1.25) mg/dL Glucose 225 H (74-99) mg/dL POC Glucose (mg/dL) 199 H (70-110) mg/dL Calcium 7.9 L (8.4-10.2) mg/dL 07/03/23 Range/Units 11:07 WBC (3.8-10.6) k/uL RBC (4.30-5.90) m/uL MCV (80.0-100.0) fL Plt Count (150-450) k/uL BUN (9-20) mg/dL Creatinine (0.66-1.25) mg/dL Glucose (74-99) mg/dL POC Glucose (mg/dL) 262 H (70-110) mg/dL Calcium (8.4-10.2) mg/dL Microbiology - Last 24 Hours (Table) 06/29/23 17:30 Gram Stain - Final Pericardial Fluid Body Fluid Culture - Final 06/29/23 17:30 Anaerobic Culture - Preliminary Pericardial Fluid Assessment and Plan Assessment: Acute on chronic hypoxemic and hypercapnic respiratory failure. Pericardial effusion, S/P pericardial window, 06/29/2023. Diastolic CHF. Acute on chronic kidney disease. Metabolic encephalopathy. Morbid obesity. Chronic atrial fibrillation, with paroxysmal atrial fibrillation/RVR. Moderately severe aortic stenosis. Obstructive sleep apnea syndrome. History of alcoholism. Hyperlipidemia. Plan: Plan dated 06/29/2023. The patient is scheduled to have a pericardial window, performed today, by cardiothoracic surgery. Otherwise, the patient remains critically ill in the intensive care unit, room 262. The patient's on norepinephrine at 2 mcg/m, dexmedetomidine 0.3 mcg/kg/h, amiodarone at 0.5 mg/m, and a Lasix drip at 10 mg an hour. The patient has been between BiPAP in the AIRVO. Currently he is on BiPAP. The patient came to the intensive care unit, on June 26. We will c ontinue to follow the patient, and make recommendations along the way. Prognosis is certainly guarded. Labs, x-rays, and medications are all reviewed. Plan dated 06/30/2023. The patient had a bedside pericardial drain placed yesterday. About 1 L fluid was removed. The patient continues on Lasix drip at 10 mg an hour, norepinephrine at 7.1 mcg/m, amiodarone at 0.5 mg/m, and Cardizem drip at 7.5 mg an hour. The patient is between AIRVO, and BiPAP. Currently, he is on AIRVO at 60 L/m with an FiO2 of 94%. He we'll continue to follow the patient, and make recommendations along the way. Prognosis is certainly guarded. The fluid was sent to laboratory for analysis. Plan dated 07/01/2023. The patient remains critically O, and is seen in the intensive care unit, room 262. The patient continues on AIRVO, at 50 L/m, with an FiO2 of 75%. He didn't use of BiPAP last night, for short time, according to respiratory therapy. The patient continues on norepinephrine at 3.5 mcg/m, D5W at 50 mL an hour, and Cardizem drip at 7.5 mg an hour. Yesterday, 235 mL of fluid was removed from the pericardium, via the catheter. Labs, x-rays, and medications are reviewed. We will continue to follow the patient, and make recommendations along the way. Prognosis is guarded. Plan dated 07/02/2023. The patient remains in the intensive care unit, his overall situation remains somewhat tenuous. He continues on AIRVO, at 35 L/m with an FiO2 of 50%. Saturations are about 90-91%. He continues on D5W at 75 mL an hour. The patient has had minimal fluid output from the paracardial drainage catheter. That may be removed by cardiothoracic surgery. Labs, x-rays, medications are reviewed. We will continue to follow the patient, and make recommendations along the way. The patient's overall condition remains guarded, although, he was a bit more awake and alert today. Plan dated 07/03/2023. The patient is seen today in room 253. The patient remains on AIRVO. He did use BiPAP last night for a few hours. Labs, x-rays, medications are reviewed. The patient is not receiving any IV fluids. Solu-Medrol can be discontinued. The patient could be transferred out of the intensive care unit. We will continue to follow make recommendations along the way. Prognosis is guarded. Time with Patient: Less than 30
--- NOTE | 2023-07-03 11:45 | P.PN ---
Subjective Patient is seen for follow-up for acute kidney injury. Renal function has improved. Urine output now at 70 - 100 mL per hour. Patient is maintained on high flow oxygen Serum creatinine at 3.4 today. BUN disproportionately elevated secondary to steroids. D5W discontinued yesterday. Sodium is 143 today. Solu-Medrol has been discontinued. BUN decreased to 120 Objective - Vital Signs Vital signs: Vital Signs Temp 97.6 F 07/03/23 08:00 Pulse 71 07/03/23 11:32 Resp 12 07/03/23 08:00 BP 110/81 07/03/23 08:00 Pulse Ox 93 L 07/03/23 08:00 FiO2 60 07/03/23 11:22 Intake & Output 07/02/23 07/03/23 07/03/23 18:59 06:59 18:59 Intake Total 1595 250 Output Total 915 905 Balance 680 -655 Weight 123.6 kg 124.5 kg Intake: IV 875 100 Dextrose 5% in Water 1, 675 000 ml @ 75 mls/hr IV . [id number] GERTRUDIS Rx#:[id number] cefTRIAXone 2 gm In 100 Sodium Chloride 0.9% 50 ml @ 100 mls/hr IVPB Q24HR GERTRUDIS Rx#:[id number] metroNIDAZOLE-NS PMX 500 100 100 mg In Saline 1 100ml.bag @ 100 mls/hr IVPB Q8HR GERTRUDIS Rx#:[id number] Oral 720 150 Output: Urine 915 905 Other: Voiding Method Indwelling Catheter Indwelling Catheter # Bowel Movements 1 ABP, PAP, CO, CI - Last Documented Arterial Blood Pressure 98/49 - Exam Patient is currently on nasal cannula, 7 L He is awake. Able to carry on a conversation. Remains confused on and off Examination of the heart S1 and S2 Examination of the lungs bilateral breath sounds are heard Abdomen is soft nontender, obese Examination of lower extremity shows no edema - Labs CBC & Chem 7: 07/03/23 03:30 07/03/23 03:30 Labs: Abnormal Lab Results - Last 24 Hours (Table) 07/02/23 07/02/23 07/03/23 Range/Units 17:09 21:41 03:30 WBC (3.8-10.6) k/uL RBC (4.30-5.90) m/uL MCV (80.0-100.0) fL Plt Count (150-450) k/uL BUN 120 H* (9-20) mg/dL Creatinine 3.43 H (0.66-1.25) mg/dL Glucose 225 H (74-99) mg/dL POC Glucose (mg/dL) 287 H 290 H (70-110) mg/dL Calcium 7.9 L (8.4-10.2) mg/dL 07/03/23 07/03/23 07/03/23 Range/Units 03:30 06:32 11:07 WBC 12.2 H (3.8-10.6) k/uL RBC 4.00 L (4.30-5.90) m/uL MCV 105.1 H (80.0-100.0) fL Plt Count 86 L (150-450) k/uL BUN (9-20) mg/dL Creatinine (0.66-1.25) mg/dL Glucose (74-99) mg/dL POC Glucose (mg/dL) 199 H 262 H (70-110) mg/dL Calcium (8.4-10.2) mg/dL Microbiology - Last 24 Hours (Table) 06/29/23 17:30 Gram Stain - Final Pericardial Fluid Body Fluid Culture - Final 06/29/23 17:30 Anaerobic Culture - Preliminary Pericardial Fluid Assessment and Plan Assessment: 1. Acute kidney injury, ATN currently nonoliguric. Component of cardiorenal syndrome as well. Indwelling Gordon catheter present. BUN disproportionately elevated secondary to steroids. Renal function has improved. Off of diuretics. 2. Hyperkalemia associated with acute kidney injury. No evidence of obstruction on ultrasound. Improved with improving urine output. 3. Acute hypercapnic respiratory failure, switched from BiPAP to airVO and today on nasal cannula. 4. Chronic kidney disease NKF stage IV with baseline creatinine around 2 mg/dL etiology is likely nephrosclerosis. Previous UA showed negative to trace protein. UA this admission shows 2+ protein. This will be monitored and workup will be performed down the road. 5. Hypercalcemia associated with primary hyperparathyroidism, started on Sensipar last admission. Currently on hold as calcium is low now. Patient was supposed to have nuclear scan of the parathyroid gland performed as outpatient. 6. Moderate pulmonary hypertension 7. Morbid obesity 8. A. fib with RVR currently maintained on amiodarone drip. 9. Large pericardial effusion status post pericardiocentesis of 1 L and then about 200 mL the next day. 10. Hypernatremia associated with free water deficit Plan: Continue off of IV fluids Repeat labs in a.m. Continue to hold Sensipar We will continue to monitor for need for renal replacement therapy on a daily basis.
--- NOTE | 2023-07-03 16:11 | P.PN ---
Subjective Progress Note Date: 07/03/23 73 years old male with multiple medical problems including Atrial Fibrillation, Heart Failure, COPD, GI Bleed, Hyperlipidemia, Hypertension, chronic kidney disease/CPAP/BIPAP,Hiatal hernia, cateracts, diverticulosis, CPAP use, Falls, Patient presents because transferred from [facility] for respiratory failure, on arrival he was hypotensive. He was recently in the hospital 06/17-06/19 for hypercalcemia and he was discharged on Sensipar which is thought secondary to hyperparathyroidism. Patient currently lives in the ICU using the BiPAP machine which limits history taken and provide information on the top of that patient is confused but he follows commands appropriately. He can answer some questions like he says he has no pain. He is asking if he can smoke now we explained for him he cannot declines the nicotine patch. Patient currently mildly tachycardic around 108, blood pressure is better 101/81 while he is on pressors. He is on BiPAP machine and he had a temperature of 98.6. showing creatinine of 5.2 with baseline 2.2-2.9, calcium slightly elevated at 11.5. WBC is 15.7 while on steroids, while rest of CBC is unremarkable TSH is elevated at 4.7 but free T4 is normal at 0[place] [address] Ultrasound showing on obstructive uropathy but there is acute cholecystitis with thickened wall. Chest x-ray is suspicious for cardiomegaly and pulmonary edema EKG showing A. fib with rate of 82 b per minute. Patient currently in the ICU on amiodarone drip, Lasix drip at 10 mg per hour , levophed at 0.03 and Solu-Medrol 60 mg, Precedex and IV thiamine Objective - Vital Signs Vital signs: Vital Signs Temp 97.6 F 07/03/23 08:00 Pulse 71 07/03/23 11:32 Resp 12 07/03/23 08:00 BP 110/81 07/03/23 08:00 Pulse Ox 93 L 07/03/23 08:00 FiO2 60 07/03/23 11:22 Intake & Output 07/02/23 07/03/23 07/03/23 18:59 06:59 18:59 Intake Total 1595 250 Output Total 915 905 Balance 680 -655 Weight 123.6 kg 124.5 kg Intake: IV 875 100 Dextrose 5% in Water 1, 675 000 ml @ 75 mls/hr IV . [id number] [facility] Rx#:[id number] cefTRIAXone 2 gm In 100 Sodium Chloride 0.9% 50 ml @ 100 mls/hr IVPB Q24HR [facility] Rx#:[id number] metroNIDAZOLE-NS PMX 500 100 100 mg In Saline 1 100ml.bag @ 100 mls/hr IVPB Q8HR [facility] Rx#:[id number] Oral 720 150 Output: Urine 915 905 Other: Voiding Method Indwelling Catheter Indwelling Catheter # Bowel Movements 1 ABP, PAP, CO, CI - Last Documented Arterial Blood Pressure 98/49 - Exam -GENERAL: The patient is awake , looks tired on airvo, , mildly confused. Obese HEENT: Pupils are round and equally reacting to light. EOMI. No scleral icterus. No conjunctival pallor. Normocephalic, atraumatic. No pharyngeal erythema. No thyromegaly. CARDIOVASCULAR: S1 and S2 present. No murmurs, rubs, or gallops. -PULMONARY: Chest is limited air entry on both sides, slightly better than yesterday, no wheezing , no crackles. Mildly tachypneic while he is on BiPAP ABDOMEN: Soft, nontender, nondistended, normoactive bowel sounds. No palpable organomegaly. MUSCULOSKELETAL: No joint swelling or deformity. EXTREMITIES: No cyanosis, clubbing, or pedal edema. NEUROLOGICAL: Gross neurological examination did not reveal any focal deficits. SKIN: No rashes. no petechiae. - Labs CBC & Chem 7: 07/03/23 03:30 07/03/23 03:30 Labs: Abnormal Lab Results - Last 24 Hours (Table) 07/02/23 07/02/23 07/03/23 Range/Units 17:09 21:41 03:30 WBC (3.8-10.6) k/uL RBC (4.30-5.90) m/uL MCV (80.0-100.0) fL Plt Count (150-450) k/uL BUN 120 H* (9-20) mg/dL Creatinine 3.43 H (0.66-1.25) mg/dL Glucose 225 H (74-99) mg/dL POC Glucose (mg/dL) 287 H 290 H (70-110) mg/dL Calcium 7.9 L (8.4-10.2) mg/dL 07/03/23 07/03/23 07/03/23 Range/Units 03:30 06:32 11:07 WBC 12.2 H (3.8-10.6) k/uL RBC 4.00 L (4.30-5.90) m/uL MCV 105.1 H (80.0-100.0) fL Plt Count 86 L (150-450) k/uL BUN (9-20) mg/dL Creatinine (0.66-1.25) mg/dL Glucose (74-99) mg/dL POC Glucose (mg/dL) 199 H 262 H (70-110) mg/dL Calcium (8.4-10.2) mg/dL Microbiology - Last 24 Hours (Table) 06/29/23 17:30 Gram Stain - Final Pericardial Fluid Body Fluid Culture - Final 06/29/23 17:30 Anaerobic Culture - Preliminary Pericardial Fluid Assessment and Plan Assessment: Acute COPD exacerbation Acute on chronic diastolic CHF with a preserved ejection fraction Acute hypoxemic hypercapnic respiratory failure, secondary to above Possible acute cholecystitis, versus intra-abdominal infection on broad-spectrum antibiotic Pericardial effusion status post pericardial window for drainage A. fib and RVR Acute kidney injury on chronic kidney disease stage IV Moderate to severe aortic stenosis Hypercalcemia secondary to hyperparathyroidism on treatment Alcohol use disorder Nicotine dependence Chronic hypoxic respiratory failure Morbid obesity with BMI 41.7. Plan: Continue with oral amiodarone, monitor heart rate Continue with oxygen at 7 L/m via high flow nasal cannula No pressors currently Continue with Solu-Medrol 60 mg General surgery R following for acute cholecystitis, Antibiotic started with Rocephin and Flagyl Continue with D5W Monitor sodium, creatinine Several consultants of the case with the pulmonary/critical care team, nephrology, neurology. Cardiothoracic surgery team Labs and medication were reviewed.. Continue same treatment. Continue with symptomatic treatment. Resume home medication. Monitor labs and vitals. DVT and GI prophylaxis. Further recommendations as per clinical course of the eileen go DVT prophylaxis: on eliquis GI Prophylaxis: Pepcid PT/OT: differed Prognosis is guarded
[2023-07-03 16:26] LABS: Glucose,Whole Blood 285 mg/dL (70-110)
[2023-07-03 20:20] LABS: Glucose,Whole Blood 286 mg/dL (70-110)
[2023-07-03] MEDS: MONTELUKAST 10 MG TAB PO SCH (20:28)
[2023-07-03] MEDS: ATORVASTATIN 80 MG TAB PO SCH (20:28)
[2023-07-04 06:29] LABS: Glucose,Whole Blood 137 mg/dL (70-110)
[2023-07-04] MEDS: INSULIN ASPART (NovoLOG) 100 UNIT/ML VIAL SQ SCH ×4 (06:34→20:29)
[2023-07-04] MEDS: MIDODRINE 5 MG TAB PO SCH ×3 (06:34→16:39)
[2023-07-04 06:36] LABS: African American GFR (CKD) 24 (>60 ml/min/1.73 sqM); Anion Gap 8 mmol/L; Calcium 7.9 mg/dL (8.4-10.2); Carbon Dioxide 28 mmol/L (22-30); Chloride 105 mmol/L (98-107); Glucose 160 mg/dL (74-99); Non-African American GFR(CKD) 21 (>60 ml/min/1.73 sqM); Potassium 3.8 mmol/L (3.5-5.1); Sodium 141 mmol/L (137-145)
[2023-07-04 06:38] LABS: Blood Urea Nitrogen 116 mg/dL (9-20)
[2023-07-04] MEDS: IPRATROPIUM-ALBUTEROL 3 ML NEB INHALATION SCH ×4 (07:34→19:44)
--- NOTE | 2023-07-04 07:47 | PN ---
PROGRESS NOTE SUBJECTIVE: Mr. Orlando is a gentleman with COPD, persistent atrial fibrillation, had a pericardiocentesis performed with more than a liter and a half of fluid. He is now in atrial fib, rate is controlled. He is on high-flow oxygen, but hemodynamically stable. I am recommending that we continue current medications. Rate control is achieved. Anticoagulation is being held in view of recent pericardial effusion. I am suggesting that we can resume anticoagulation at a low dose of 2.5 mg b.i.d. of Eliquis. OBJECTIVE: VITALS: Stable. HEART: S1 and S2 are heard normally, irregular rhythm. Short systolic murmur. No rub. LUNGS: Reveal diminished air entry. ABDOMEN: Otherwise unremarkable. EXTREMITIES: Lower extremity exam otherwise is unremarkable. MMODL / IJN: [id number] /
[2023-07-04] MEDS: SENNOSIDES 8.6 MG TAB PO SCH (10:10)
[2023-07-04] MEDS: HEPARIN SODIUM,PORCINE 5,000 UNIT/ML 1 ML VIAL SQ SCH ×2 (10:15→20:29)
[2023-07-04] MEDS: FOLIC ACID 1 MG TAB PO SCH (10:15)
[2023-07-04] MEDS: AMIODARONE 200 MG TAB PO SCH ×2 (10:15→20:30)
[2023-07-04] MEDS: FUROSEMIDE 10 MG/ML 4 ML VIAL IV SCH ×2 (10:15→20:29)
[2023-07-04] MEDS: FAMOTIDINE 20 MG/2 ML VIAL IV SCH (10:15)
[2023-07-04] MEDS: METOPROLOL TARTRATE 12.5 MG TAB PO SCH ×2 (10:15→20:30)
--- NOTE | 2023-07-04 10:15 | P.PN ---
Subjective Patient is seen for follow-up for acute kidney injury. Renal function has improved. Urine output now at 70 - 100 mL per hour. Gordon catheter is out. Patient is maintained on high flow oxygen Serum creatinine at 2.8 today. Objective - Vital Signs Vital signs: Vital Signs Temp 97.7 F 07/04/23 04:00 Pulse 78 07/04/23 07:50 Resp 20 07/04/23 04:00 BP 108/79 07/04/23 04:00 Pulse Ox 91 L 07/04/23 07:37 FiO2 60 07/04/23 08:19 Intake & Output 07/03/23 07/04/23 07/04/23 18:59 06:59 18:59 Intake Total 500 100 Output Total 800 Balance -300 100 Weight 123.7 kg Intake: Oral 500 100 Output: Urine 800 Other: Voiding Method Indwelling Catheter External Catheter # Voids 1 # Bowel Movements 1 ABP, PAP, CO, CI - Last Documented Arterial Blood Pressure 98/49 - Exam Patient is currently on nasal cannula, 7 L He is awake. Able to carry on a conversation. Remains confused on and off Examination of the heart S1 and S2 Examination of the lungs bilateral breath sounds are heard Abdomen is soft nontender, obese Examination of lower extremity shows no edema - Labs CBC & Chem 7: 07/03/23 03:30 07/04/23 05:20 Labs: Abnormal Lab Results - Last 24 Hours (Table) 07/03/23 07/03/23 07/03/23 Range/Units 11:07 16:25 20:19 BUN (9-20) mg/dL Creatinine (0.66-1.25) mg/dL Glucose (74-99) mg/dL POC Glucose (mg/dL) 262 H 285 H 286 H (70-110) mg/dL Calcium (8.4-10.2) mg/dL 07/04/23 07/04/23 Range/Units 05:20 06:27 BUN 116 H* (9-20) mg/dL Creatinine 2.84 H (0.66-1.25) mg/dL Glucose 160 H (74-99) mg/dL POC Glucose (mg/dL) 137 H (70-110) mg/dL Calcium 7.9 L (8.4-10.2) mg/dL Microbiology - Last 24 Hours (Table) 06/29/23 17:30 Gram Stain - Final Pericardial Fluid Body Fluid Culture - Final Assessment and Plan Assessment: 1. Acute kidney injury, ATN currently nonoliguric. Component of cardiorenal syndrome as well. Indwelling Gordon catheter present. BUN disproportionately elevated secondary to steroids. Decreasing post discontinuation of Solu-Medrol. Renal function has improved. Off of diuretics. 2. Hyperkalemia associated with acute kidney injury. No evidence of obstruction on ultrasound. Improved with improving urine output. 3. Acute hypercapnic respiratory failure, switched from BiPAP to airVO and today on nasal cannula. 4. Chronic kidney disease NKF stage IV with baseline creatinine around 2 mg/dL etiology is likely nephrosclerosis. Previous UA showed negative to trace protein. UA this admission shows 2+ protein. This will be monitored and workup will be performed down the road. 5. Hypercalcemia associated with primary hyperparathyroidism, started on Sensipar last admission. Currently on hold as calcium is low now. Patient was supposed to have nuclear scan of the parathyroid gland performed as outpatient. 6. Moderate pulmonary hypertension 7. Morbid obesity 8. A. fib with RVR currently maintained on amiodarone drip. 9. Large pericardial effusion status post pericardiocentesis of 1 L and then about 200 mL the next day. 10. Hypernatremia associated with free water deficit Plan: Continue off of IV fluids Add Lasix for 24 hours Repeat labs in a.m. Continue to hold Sensipar We will continue to monitor for need for renal replacement therapy on a daily basis.
--- NOTE | 2023-07-04 10:38 | P.PN ---
Subjective Progress Note Date: 07/04/23 Principal diagnosis: Respiratory failure. Acute on chronic hypoxic and hypercapnic respiratory failure This is a 73-year-old white male with history of multiple medical problems i ncluding chronic congestive heart failure, COPD, chronic kidney disease, chronic hypoxic respiratory failure, obstructive sleep apnea syndrome, maintained on CPAP now patient was transferred from [facility] with 2 days history of increased shortness of breath. I have seen this patient in the past and his last evaluation in the hospital was on 02/16/2023. At that time the patient presented with acute on chronic hypoxic and hypercapnic respiratory failure with congestive heart failure and COPD. He should also had moderate severe aortic stenosis, and morbid obesity as well as chronic atrial fibrillation. Back then the patient was treated mostly aggressively with diuretics, and he was eventually discharged home after almost a week stay in the ICU. This time the patient has a very similar presentation, I saw the patient in the ER, and his is at bedside. Patient is now on BiPAP which I have adjusted to IPAP of 16 and EPAP 6, and he is also on 100% FiO2. ABG is pending, earlier venous ABG showed a pCO2 of 120 and pH of 7.01. After I evaluated the patient, I recommended immediate transfer to the ICU ABG, ultrasound of the chest, I cut down his IV fluid to KVO, started the patient on Lasix drip at 10 mg per hour. And explained to the that the patient may require intubation mechanical ventilation if his condition does not improve much and a short period of time. For low blood pressure may consider using norepinephrine, would definitely avoid using fluids at this point. Labs were reviewed chest x-ray was reviewed his BUN is 99 creatinine is 5.25, and his creatinine only a few days ago was 2.07. Apparently he is developing a worsening picture of chronic kidney disease. Could be cardiorenal. BNP level is 14,900 Reevaluated today on 06/27/2023, patient remains in the ICU, remains on Lasix drip at 10 mg per hour, amiodarone 0.5 mg/m for atrial fibrillation/RVR which she developed last night patient does have chronic history of atrial fibrillation remains on norepinephrine at 0.04 mcg/kg/m, he is on Precedex at 0.2 mcg/kg/hr, IV fluid at 20 mL per hour in the form of 0.9 normal saline. Blood pressure is noted to be borderline. Hence patient had a left subclavian triple-lumen catheter placed and a left radial arterial line placement. Repeat ABG this morning continues to show significant metabolic and respiratory acidosis pO2 of 79 pCO2 62 pH of 7.21, potassium is up to 5.19, patient was given 1 amp of bicarb for his acidosis. His BUN is 107 creatinine 5.17, slightly better compared to yesterday, patient is being evaluated by nephrology. Remains on BiPAP at 16/6/75% FiO2. And overall his clinical status is critically ill/marginal. Patient is definitely high risk for intubation mechanical ventilation, the patient and his are both aware of this, however at this point I will hold on mechanically ventilated the patient. We'll continue BiPAP, continue Lasix drip, and continue pressors patient may eventually require hemodialysis. Ultrasound of the chest showed small bilateral pleural effusions left more so than right, the left sided pocket is not large enough to consider safe left sided thoracentesis. Patient was reevaluated today on 06/2023, remains in the ICU, remains on Lasix drip at 10 mg per hour, remains on BiPAP at 12/6/75%. Patient is still requiring Precedex at 0.6 mcg/kg/h, norepinephrine at 0.03 mcg/kg/m. Patient is negative balance over the last 24 hours about 2 L. And he is steadily improving but remains critically ill, and simply requiring pressors. ABG showed a pO2 of 76 pCO2 of 50 pH of 7.34, significantly improved compared to his initial ABG on admission where his pCO2 was in the 120 range. Patient remains on Rocephin and Flagyl, his CT of the abdomen raised the possibility of acute cholecystitis, but clinically I do not see any evidence of cholecystitis, the patient has no pain or tenderness in the right upper quadrant. Being considered for a HIDA scan. CT of the brain came back negative for acute process. WBC count today is 13.9 hemoglobin 15.4. Platelets are 226, basic metabolic profile is normal BUN is 111 creatinine is down to 4.44 improving in spite of aggressive diuresis on this patient. If her enzymes are basically normal. Chest x-ray this morning showed cardiomegaly, pulmonary vascular congestion, bilateral pleural effusions, however based on ultrasound, the left-sided pleural effusion was not large enough to consider safe thoracentesis Progress note dated 06/29/2023. 73-year-old male seen in the intensive care unit, room 262. The patient is scheduled to have a pericardial window done today, June 29. Briefly, the patient was admitted to the hospital June 26, for CHF, acute mental status changes, and a pericardial effusion. The patient was admitted to the intensive care unit, on the day of admission. The patient's been between BiPAP, with settings of 12/6, and 75%, or AIRVO, at 60 L/m with an FiO2 of 80%. The patient is currently on norepinephrine at 2 mcg/m, dexmedetomidine at 0.3 mcg/kg/h, amiodarone at 0.5 mg/m, a Lasix drip at 10 mg an hour, and saline at KVO. White count is 13.7, hemoglobin 16, hematocrit 48.9, and a platelet count of 203,000. Sodium 143, potassium 4.1, chlorides 102, CO2 28, BUN 117, and creatinine 3.83. Pro-calcitonin level is 0.47, from yesterday. Chest x-ray shows cardiomegaly, with bibasilar effusions. Progress note dated 06/30/2023. 73-year-old male with a history of pericardial effusion. The patient had a bedside procedure done yesterday, to drain the pericardial effusion. About 1 L of fluid was removed. Currently, he's on AIRVO, at 60 L/m, with an FiO2 of 94%. He continues on Lasix drip at 10 mg an hour, norepinephrine at 7.1 mcg/m, amiodarone at 0.5 mg/m, and a Cardizem drip of 7.5 mg an hour. The patient spent some time on BiPAP as well. White count 15.1, hemoglobin 15, hematocrit 47.6, and platelet count 182,000. Sodium 147, potassium 3.3, chlorides 105, CO2 28, BUN 122, and creatinine 3.72. Glucose 193. Calcium is 9.0. Chest x-ray shows a pericardial drain. There is some volume loss of the left lower lobe, and small bilateral pleural effusions. Progress note dated 07/01/2023. 73-year-old male with history of pericardial effusion. The patient is postop d ay #2, status post pericardial window drainage catheter. He seen today in room 262. He continues on either AIRVO, at 50 L/m, with an FiO2 of 75%, or BiPAP, with settings of 12/6, and 85%. The patient continues on norepinephrine at 3.5 mcg/m, D5W at 50 mL an hour, and Cardizem drip at 7.5 mg an hour. The patient's pericardial catheter, was drained yesterday, and 235 mL of fluid was removed. White count 11.3, hemoglobin 14.3, hematocrit 44.7, and platelet count 136,000. Sodium 148, potassium 3.7, chlorides 107, CO2 27, BUN 129, and creatinine 3.82. Glucose 170. Calcium is 8.6. Chest x-ray shows cardiomegaly, and pulmonary vascular congestion, small bilateral effusions. Progress note dated 07/02/2023. 73-year-old male with history of pericardial effusion. The patient is postop day #3, status post pericardial window with drainage catheter. He seen today in room 262. Currently, he is on AIRVO, at 35 L/m with an FiO2 of 50%. The patient is getting D5W at 75 mL an hour. Over the last couple of days, the fluid removed from the pericardial space, has been very limited. White count is 10.9, hemoglobin 13.4, hematocrit 3.2, and platelet count 97,000. Sodium 147, potassium 3.6, chlorides 108, CO2 29, BUN 132, and creatinine 3.69. Glucose 2:15, calcium is 8.2. Chest x-ray shows cardiomegaly, and mild CHF with pulmonary vascular congestion. Progress note dated 07/03/2023. 73-year-old male with a history of pericardial effusion, postop day #4, status post pericardial window, which drainage catheter. The catheter has subsequently been removed. The patient is seen today in room 253. The patient is currently on AIRVO, with settings of 35 L/m, and an FiO2 of 60%. He's not receiving any IV fluids. Solu-Medrol will be discontinued. He apparently spent a few hours on BiPAP last night, with settings of 12/6, at the percent. The patient has been downgraded, and can be transferred out of the ICU. Laboratory data today includes a white count 12.2, hemoglobin 13.1, hematocrit 42, and platelet count 86,000. Sodium 143, potassium 3.7, chlorides 105, CO2 26, BUN 120, and creatinine 3.43. Calcium is 7.9. Culture data is pending or negative. Chest x-ray shows findings of CHF, and cardiomegaly. Small to moderate pleural effusion, left greater than right. Progress note dated 07/04/2023. 73-year-old male, seen today in room 253. He is postop day #5, status post pericardial window, with insertion of a drainage catheter. Catheter has been removed. Currently, the patient is on BiPAP, with settings of 12/6, and 50%. Alternatively, the patient can be on AIRVO, at 35 L/m, with an FiO2 of 70%. Lasix has been added twice a day by nephrology. I believe that to be appropriate. The patient's not receiving any IV fluids. Labs today include sodium 141, potassium 3.8, chlorides 105, CO2 28, BUN 116, and creatinine 2.84. Calcium is 7.9. Objective - Vital Signs Vital signs: Vital Signs Temp 97.7 F 07/04/23 04:00 Pulse 78 07/04/23 07:50 Resp 20 07/04/23 04:00 BP 108/79 07/04/23 04:00 Pulse Ox 91 L 07/04/23 07:37 FiO2 60 07/04/23 08:19 Intake & Output 07/03/23 07/04/23 07/04/23 18:59 06:59 18:59 Intake Total 500 100 Output Total 800 Balance -300 100 Weight 123.7 kg Intake: Oral 500 100 Output: Urine 800 Other: Voiding Method Indwelling Catheter External Catheter # Voids 1 # Bowel Movements 1 ABP, PAP, CO, CI - Last Documented Arterial Blood Pressure 98/49 - Exam No acute distress, currently on BiPAP. Appears comfortable. HEENT examination is grossly unremarkable. Neck supple. Full range of motion. No adenopathy thyromegaly or neck vein d istention. Cardiovascular examination reveals regular rhythm rate. S1-S2 normal. No S3 or S4. No discernible murmur noted. Heart rate 78 bpm. Lungs reveal scattered rhonchi. Breath sounds equal bilaterally. Saturations are 95 %. No wheezes or crackles. Abdomen soft bowel sounds are heard. No masses or tenderness. Extremities are intact. No cyanosis clubbing or edema. Skin is without rash or lesion. Neurologic examination reveals the patient to be alert and oriented. - Labs CBC & Chem 7: 07/03/23 03:30 07/04/23 05:20 Labs: Abnormal Lab Results - Last 24 Hours (Table) 07/03/23 07/03/23 07/03/23 Range/Units 11:07 16:25 20:19 BUN (9-20) mg/dL Creatinine (0.66-1.25) mg/dL Glucose (74-99) mg/dL POC Glucose (mg/dL) 262 H 285 H 286 H (70-110) mg/dL Calcium (8.4-10.2) mg/dL 07/04/23 07/04/23 Range/Units 05:20 06:27 BUN 116 H* (9-20) mg/dL Creatinine 2.84 H (0.66-1.25) mg/dL Glucose 160 H (74-99) mg/dL POC Glucose (mg/dL) 137 H (70-110) mg/dL Calcium 7.9 L (8.4-10.2) mg/dL Microbiology - Last 24 Hours (Table) 06/29/23 17:30 Gram Stain - Final Pericardial Fluid Body Fluid Culture - Final Assessment and Plan Assessment: Acute on chronic hypoxemic and hypercapnic respiratory failure. Pericardial effusion, S/P pericardial window, 06/29/2023, POD # 5. Diastolic CHF. Acute on chronic kidney disease. Metabolic encephalopathy. Morbid obesity. Chronic atrial fibrillation, with paroxysmal atrial fibrillation/RVR. Moderately severe aortic stenosis. Obstructive sleep apnea syndrome. History of alcoholism. Hyperlipidemia. Time with Patient: Less than 30
[2023-07-04 11:39] LABS: Glucose,Whole Blood 121 mg/dL (70-110)
--- NOTE | 2023-07-04 14:40 | P.PN ---
Subjective Progress Note Date: 07/04/23 73 years old male with multiple medical problems including Atrial Fibrillation, Heart Failure, COPD, GI Bleed, Hyperlipidemia, Hypertension, chronic kidney disease/CPAP/BIPAP,Hiatal hernia, cateracts, diverticulosis, CPAP use, Falls, Patient presents because transferred from [facility] for respiratory failure, on arrival he was hypotensive. He was recently in the hospital 06/17-06/19 for hypercalcemia and he was discharged on Sensipar which is thought secondary to hyperparathyroidism. Patient currently lives in the ICU using the BiPAP machine which limits history taken and provide information on the top of that patient is confused but he follows commands appropriately. He can answer some questions like he says he has no pain. He is asking if he can smoke now we explained for him he cannot declines the nicotine patch. Patient currently mildly tachycardic around 108, blood pressure is better 101/81 while he is on pressors. He is on BiPAP machine and he had a temperature of 98.6. showing creatinine of 5.2 with baseline 2.2-2.9, calcium slightly elevated at 11.5. WBC is 15.7 while on steroids, while rest of CBC is unremarkable TSH is elevated at 4.7 but free T4 is normal [place] 0[place] [id number] Ultrasound showing on obstructive uropathy but there is acute cholecystitis with thickened wall. Chest x-ray is suspicious for cardiomegaly and pulmonary edema EKG showing A. fib with rate of 82 b per minute. Patient currently in the ICU on amiodarone drip, Lasix drip at 10 mg per hour , levophed at 0.03 and Solu-Medrol 60 mg, Precedex and IV thiamine 24 hour interval change 07/04/2023 Patient is seen and evaluated in room at bedside; patient is status post pericardial window, POD #5; drainage catheter has been removed Vital signs are reviewed and stable with temperature of 97.7, pulse 78, respiration 20 and blood pressure 108/79 -- Patient has been placed on Lasix by nephrology Lab review shows sodium of 141, potassium 3.8, BUN of 116 with creatinine of 2.84 Objective - Vital Signs Vital signs: Vital Signs Temp 97.7 F 07/04/23 04:00 Pulse 78 07/04/23 07:50 Resp 20 07/04/23 04:00 BP 108/79 07/04/23 04:00 Pulse Ox 91 L 07/04/23 07:37 FiO2 60 07/04/23 08:19 Intake & Output 07/03/23 07/04/23 07/04/23 18:59 06:59 18:59 Intake Total 500 100 Output Total 800 Balance -300 100 Weight 123.7 kg Intake: Oral 500 100 Output: Urine 800 Other: Voiding Method Indwelling Catheter External Catheter # Voids 1 # Bowel Movements 1 ABP, PAP, CO, CI - Last Documented Arterial Blood Pressure 98/49 - Exam -GENERAL: The patient is awake , looks tired on airvo, , mildly confused. Obese HEENT: Pupils are round and equally reacting to light. EOMI. No scleral icterus. No conjunctival pallor. Normocephalic, atraumatic. No pharyngeal erythema. No thyromegaly. CARDIOVASCULAR: S1 and S2 present. No murmurs, rubs, or gallops. -PULMONARY: Chest is limited air entry on both sides, slightly better than yesterday, no wheezing , no crackles. Mildly tachypneic while he is on BiPAP ABDOMEN: Soft, nontender, nondistended, normoactive bowel sounds. No palpable organomegaly. MUSCULOSKELETAL: No joint swelling or deformity. EXTREMITIES: No cyanosis, clubbing, or pedal edema. NEUROLOGICAL: Gross neurological examination did not reveal any focal deficits. SKIN: No rashes. no petechiae. - Labs CBC & Chem 7: 07/03/23 03:30 07/04/23 05:20 Labs: Abnormal Lab Results - Last 24 Hours (Table) 07/03/23 07/03/23 07/03/23 Range/Units 11:07 16:25 20:19 BUN (9-20) mg/dL Creatinine (0.66-1.25) mg/dL Glucose (74-99) mg/dL POC Glucose (mg/dL) 262 H 285 H 286 H (70-110) mg/dL Calcium (8.4-10.2) mg/dL 07/04/23 07/04/23 Range/Units 05:20 06:27 BUN 116 H* (9-20) mg/dL Creatinine 2.84 H (0.66-1.25) mg/dL Glucose 160 H (74-99) mg/dL POC Glucose (mg/dL) 137 H (70-110) mg/dL Calcium 7.9 L (8.4-10.2) mg/dL Microbiology - Last 24 Hours (Table) 06/29/23 17:30 Gram Stain - Final Pericardial Fluid Body Fluid Culture - Final Assessment and Plan Assessment: Acute COPD exacerbation Acute on chronic diastolic CHF with a preserved ejection fraction Acute hypoxemic hypercapnic respiratory failure, secondary to above Possible acute cholecystitis, versus intra-abdominal infection on broad-spectrum antibiotic Pericardial effusion status post pericardial window for drainage A. fib and RVR Acute kidney injury on chronic kidney disease stage IV Moderate to severe aortic stenosis Hypercalcemia secondary to hyperparathyroidism on treatment Alcohol use disorder Nicotine dependence Chronic hypoxic respiratory failure Morbid obesity with BMI 41.7. Plan: Continue with oral amiodarone, monitor heart rate Continue with oxygen at 7 L/m via high flow nasal cannula No pressors currently Continue with Solu-Medrol 60 mg General surgery R following for acute cholecystitis, Antibiotic started with Rocephin and Flagyl Continue with D5W Monitor sodium, creatinine Several consultants of the case with the pulmonary/critical care team, nephrology, neurology. Cardiothoracic surgery team Labs and medication were reviewed.. Continue same treatment. Continue with symptomatic treatment. Resume home medication. Monitor labs and vitals. DVT and GI prophylaxis. Further recommendations as per clinical course of the patient DVT prophylaxis: on eliquis GI Prophylaxis: Pepcid PT/OT: differed Prognosis is guarded
[2023-07-04 16:11] LABS: Glucose,Whole Blood 119 mg/dL (70-110)
[2023-07-04 20:14] LABS: Glucose,Whole Blood 170 mg/dL (70-110)
[2023-07-04] MEDS: MONTELUKAST 10 MG TAB PO SCH (20:30)
[2023-07-04] MEDS: ATORVASTATIN 80 MG TAB PO SCH (20:30)
[2023-07-05] MEDS: ALBUTEROL NEBULIZED 2.5 MG/3 ML INHALATION PRN ×2 (01:01→23:29)
[2023-07-05 06:12] LABS: Glucose,Whole Blood 124 mg/dL (70-110)
[2023-07-05 06:18] LABS: Basophils % (A) 0 %; Eosinophils # (A) 0.1 k/uL (0-0.7); Eosinophils % (A) 1 %; HCT 51.7 % (39.0-53.0); Hypochromasia Marked; Lymphocytes # (A) 0.3 k/uL (1.0-4.8); Lymphocytes % (A) 2 %; MCH 33.1 pg (25.0-35.0); MCHC 30.9 g/dL (31.0-37.0); MCV 107.2 fL (80.0-100.0); Macrocytosis Moderate; Mean Platelet Volume 10.8; Monocytes # (A) 0.9 k/uL (0-1.0); Monocytes % (A) 6 %; Neutrophils % (A) 91 %; RBC 4.83 m/uL (4.30-5.90); RDW 14.2 % (11.5-15.5); WBC 16.5 k/uL (3.8-10.6)
[2023-07-05 06:26] LABS: African American GFR (CKD) 24 (>60 ml/min/1.73 sqM); Anion Gap 12 mmol/L; Calcium 7.9 mg/dL (8.4-10.2); Carbon Dioxide 27 mmol/L (22-30); Chloride 101 mmol/L (98-107); Glucose 138 mg/dL (74-99); Non-African American GFR(CKD) 21 (>60 ml/min/1.73 sqM); Sodium 140 mmol/L (137-145)
[2023-07-05 06:38] LABS: Blood Urea Nitrogen 118 mg/dL (9-20)
[2023-07-05 06:50] LABS: Platelet Count 98 k/uL (150-450)
[2023-07-05] MEDS: INSULIN ASPART (NovoLOG) 100 UNIT/ML VIAL SQ SCH ×4 (06:56→20:41)
[2023-07-05] MEDS: MIDODRINE 5 MG TAB PO SCH ×3 (06:56→16:52)
--- NOTE | 2023-07-05 07:41 | XR ---
EXAMINATION TYPE: XR chest 1V portable DATE OF EXAM: 07/05/2023 5:15 AM CLINICAL INDICATION:Male, 73 years old with history of short of breath; COMPARISON: Chest radiographs from 07/03/2023. TECHNIQUE: XR chest 1V portable Frontal view of the chest. FINDINGS: Lungs/Pleura: There is no evidence of pleural effusion, focal consolidation, or pneumothorax. Pulmonary vascularity: Pulmonary vascular congestion. Heart/mediastinum: Cardiomediastinal silhouette is enlarged and stable. Musculoskeletal: No acute osseous pathology. IMPRESSION: * Increasing right lower airspace opacities correlate for worsening pneumonia. * Superimposed pulmonary vascular congestion suggestive of congestive heart failure.
[2023-07-05] MEDS: IPRATROPIUM-ALBUTEROL 3 ML NEB INHALATION SCH ×4 (08:35→19:41)
[2023-07-05] MEDS: AMIODARONE 200 MG TAB PO SCH ×2 (08:51→20:41)
[2023-07-05] MEDS: FAMOTIDINE 20 MG/2 ML VIAL IV SCH (08:51)
[2023-07-05] MEDS: HEPARIN SODIUM,PORCINE 5,000 UNIT/ML 1 ML VIAL SQ SCH ×2 (08:51→20:41)
[2023-07-05] MEDS: METOPROLOL TARTRATE 12.5 MG TAB PO SCH ×2 (08:51→21:54)
[2023-07-05] MEDS: SENNOSIDES 8.6 MG TAB PO SCH (08:51)
[2023-07-05] MEDS: FOLIC ACID 1 MG TAB PO SCH (08:51)
[2023-07-05] MEDS: FUROSEMIDE 10 MG/ML 4 ML VIAL IV SCH ×2 (08:51→20:41)
--- NOTE | 2023-07-05 09:43 | P.PN ---
Subjective Progress Note Date: 07/05/23 Principal diagnosis: Respiratory failure. Acute on chronic hypoxic and hypercapnic respiratory failure This is a 73-year-old white male with history of multiple medical problems i ncluding chronic congestive heart failure, COPD, chronic kidney disease, chronic hypoxic respiratory failure, obstructive sleep apnea syndrome, maintained on CPAP now patient was transferred from [facility] with 2 days history of increased shortness of breath. I have seen this patient in the past and his last evaluation in the hospital was on 02/16/2023. At that time the patient presented with acute on chronic hypoxic and hypercapnic respiratory failure with congestive heart failure and COPD. He should also had moderate severe aortic stenosis, and morbid obesity as well as chronic atrial fibrillation. Back then the patient was treated mostly aggressively with diuretics, and he was eventually discharged home after almost a week stay in the ICU. This time the patient has a very similar presentation, I saw the patient in the ER, and his is at bedside. Patient is now on BiPAP which I have adjusted to IPAP of 16 and EPAP 6, and he is also on 100% FiO2. ABG is pending, earlier venous ABG showed a pCO2 of 120 and pH of 7.01. After I evaluated the patient, I recommended immediate transfer to the ICU ABG, ultrasound of the chest, I cut down his IV fluid to KVO, started the patient on Lasix drip at 10 mg per hour. And explained to the that the patient may require intubation mechanical ventilation if his condition does not improve much and a short period of time. For low blood pressure may consider using norepinephrine, would definitely avoid using fluids at this point. Labs were reviewed chest x-ray was reviewed his BUN is 99 creatinine is 5.25, and his creatinine only a few days ago was 2.07. Apparently he is developing a worsening picture of chronic kidney disease. Could be cardiorenal. BNP level is 14,900 Reevaluated today on 06/27/2023, patient remains in the ICU, remains on Lasix drip at 10 mg per hour, amiodarone 0.5 mg/m for atrial fibrillation/RVR which she developed last night patient does have chronic history of atrial fibrillation remains on norepinephrine at 0.04 mcg/kg/m, he is on Precedex at 0.2 mcg/kg/hr, IV fluid at 20 mL per hour in the form of 0.9 normal saline. Blood pressure is noted to be borderline. Hence patient had a left subclavian triple-lumen catheter placed and a left radial arterial line placement. Repeat ABG this morning continues to show significant metabolic and respiratory acidosis pO2 of 79 pCO2 62 pH of 7.21, potassium is up to 5.19, patient was given 1 amp of bicarb for his acidosis. His BUN is 107 creatinine 5.17, slightly better compared to yesterday, patient is being evaluated by nephrology. Remains on BiPAP at 16/6/75% FiO2. And overall his clinical status is critically ill/marginal. Patient is definitely high risk for intubation mechanical ventilation, the patient and his are both aware of this, however at this point I will hold on mechanically ventilated the patient. We'll continue BiPAP, continue Lasix drip, and continue pressors patient may eventually require hemodialysis. Ultrasound of the chest showed small bilateral pleural effusions left more so than right, the left sided pocket is not large enough to consider safe left sided thoracentesis. Patient was reevaluated today on 06/2023, remains in the ICU, remains on Lasix drip at 10 mg per hour, remains on BiPAP at 12/6/75%. Patient is still requiring Precedex at 0.6 mcg/kg/h, norepinephrine at 0.03 mcg/kg/m. Patient is negative balance over the last 24 hours about 2 L. And he is steadily improving but remains critically ill, and simply requiring pressors. ABG showed a pO2 of 76 pCO2 of 50 pH of 7.34, significantly improved compared to his initial ABG on admission where his pCO2 was in the 120 range. Patient remains on Rocephin and Flagyl, his CT of the abdomen raised the possibility of acute cholecystitis, but clinically I do not see any evidence of cholecystitis, the patient has no pain or tenderness in the right upper quadrant. Being considered for a HIDA scan. CT of the brain came back negative for acute process. WBC count today is 13.9 hemoglobin 15.4. Platelets are 226, basic metabolic profile is normal BUN is 111 creatinine is down to 4.44 improving in spite of aggressive diuresis on this patient. If her enzymes are basically normal. Chest x-ray this morning showed cardiomegaly, pulmonary vascular congestion, bilateral pleural effusions, however based on ultrasound, the left-sided pleural effusion was not large enough to consider safe thoracentesis Progress note dated 06/29/2023. 73-year-old male seen in the intensive care unit, room 262. The patient is scheduled to have a pericardial window done today, June 29. Briefly, the patient was admitted to the hospital June 26, for CHF, acute mental status changes, and a pericardial effusion. The patient was admitted to the intensive care unit, on the day of admission. The patient's been between BiPAP, with settings of 12/6, and 75%, or AIRVO, at 60 L/m with an FiO2 of 80%. The patient is currently on norepinephrine at 2 mcg/m, dexmedetomidine at 0.3 mcg/kg/h, amiodarone at 0.5 mg/m, a Lasix drip at 10 mg an hour, and saline at KVO. White count is 13.7, hemoglobin 16, hematocrit 48.9, and a platelet count of 203,000. Sodium 143, potassium 4.1, chlorides 102, CO2 28, BUN 117, and creatinine 3.83. Pro-calcitonin level is 0.47, from yesterday. Chest x-ray shows cardiomegaly, with bibasilar effusions. Progress note dated 06/30/2023. 73-year-old male with a history of pericardial effusion. The patient had a bedside procedure done yesterday, to drain the pericardial effusion. About 1 L of fluid was removed. Currently, he's on AIRVO, at 60 L/m, with an FiO2 of 94%. He continues on Lasix drip at 10 mg an hour, norepinephrine at 7.1 mcg/m, amiodarone at 0.5 mg/m, and a Cardizem drip of 7.5 mg an hour. The patient spent some time on BiPAP as well. White count 15.1, hemoglobin 15, hematocrit 47.6, and platelet count 182,000. Sodium 147, potassium 3.3, chlorides 105, CO2 28, BUN 122, and creatinine 3.72. Glucose 193. Calcium is 9.0. Chest x-ray shows a pericardial drain. There is some volume loss of the left lower lobe, and small bilateral pleural effusions. Progress note dated 07/01/2023. 73-year-old male with history of pericardial effusion. The patient is postop d ay #2, status post pericardial window drainage catheter. He seen today in room 262. He continues on either AIRVO, at 50 L/m, with an FiO2 of 75%, or BiPAP, with settings of 12/6, and 85%. The patient continues on norepinephrine at 3.5 mcg/m, D5W at 50 mL an hour, and Cardizem drip at 7.5 mg an hour. The patient's pericardial catheter, was drained yesterday, and 235 mL of fluid was removed. White count 11.3, hemoglobin 14.3, hematocrit 44.7, and platelet count 136,000. Sodium 148, potassium 3.7, chlorides 107, CO2 27, BUN 129, and creatinine 3.82. Glucose 170. Calcium is 8.6. Chest x-ray shows cardiomegaly, and pulmonary vascular congestion, small bilateral effusions. Progress note dated 07/02/2023. 73-year-old male with history of pericardial effusion. The patient is postop day #3, status post pericardial window with drainage catheter. He seen today in room 262. Currently, he is on AIRVO, at 35 L/m with an FiO2 of 50%. The patient is getting D5W at 75 mL an hour. Over the last couple of days, the fluid removed from the pericardial space, has been very limited. White count is 10.9, hemoglobin 13.4, hematocrit 3.2, and platelet count 97,000. Sodium 147, potassium 3.6, chlorides 108, CO2 29, BUN 132, and creatinine 3.69. Glucose 2:15, calcium is 8.2. Chest x-ray shows cardiomegaly, and mild CHF with pulmonary vascular congestion. Progress note dated 07/03/2023. 73-year-old male with a history of pericardial effusion, postop day #4, status post pericardial window, which drainage catheter. The catheter has subsequently been removed. The patient is seen today in room 253. The patient is currently on AIRVO, with settings of 35 L/m, and an FiO2 of 60%. He's not receiving any IV fluids. Solu-Medrol will be discontinued. He apparently spent a few hours on BiPAP last night, with settings of 12/6, at the percent. The patient has been downgraded, and can be transferred out of the ICU. Laboratory data today includes a white count 12.2, hemoglobin 13.1, hematocrit 42, and platelet count 86,000. Sodium 143, potassium 3.7, chlorides 105, CO2 26, BUN 120, and creatinine 3.43. Calcium is 7.9. Culture data is pending or negative. Chest x-ray shows findings of CHF, and cardiomegaly. Small to moderate pleural effusion, left greater than right. Progress note dated 07/04/2023. 73-year-old male, seen today in room 253. He is postop day #5, status post pericardial window, with insertion of a drainage catheter. Catheter has been removed. Currently, the patient is on BiPAP, with settings of 12/6, and 50%. Alternatively, the patient can be on AIRVO, at 35 L/m, with an FiO2 of 70%. Lasix has been added twice a day by nephrology. I believe that to be appropriate. The patient's not receiving any IV fluids. Labs today include sodium 141, potassium 3.8, chlorides 105, CO2 28, BUN 116, and creatinine 2.84. Calcium is 7.9. Progress note dated 07/05/2023. 73-year-old male seen today in room 253. He's postop day #6, status post pericardial window, insertion of a drainage catheter. Catheter has been removed. The patient is currently on BiPAP, with settings of 12/6, and 50%. He's not on any IV fluids. We will check a pro-calcitonin level today. The patient could not tolerate AIRVO yesterday. Current labs include a white count 16.5, hemoglobin 16, hematocrit 52, and platelet count 98,000. Sodium 140, potassium 4, chlorides 101, CO2 27, BUN 118, and creatinine 2.87. Glucose 124. Chest x-ray shows mild fluid overload, and a potentially developing right lower lobe airspace infiltrate. Objective - Vital Signs Vital signs: Vital Signs Temp 96.9 F L 07/05/23 08:00 Pulse 74 07/05/23 08:47 Resp 24 07/05/23 08:00 BP 118/85 07/05/23 08:00 Pulse Ox 97 07/05/23 08:00 FiO2 50 07/05/23 08:37 Intake & Output 07/04/23 07/05/23 07/05/23 18:59 06:59 18:59 Intake Total 480 Output Total 0 Balance 0 480 Weight 122.6 kg Intake: Oral 480 Output: Post Void Residual 0 Other: Voiding Method Diaper Diaper Diaper Incontinent Incontinent # Voids 1 1 2 # Bowel Movements 2 0 ABP, PAP, CO, CI - Last Documented Arterial Blood Pressure 98/49 - Exam No acute distress, currently on BiPAP. Appears comfortable. HEENT examination is grossly unremarkable. Neck supple. Full range of motion. No adenopathy thyromegaly or neck vein distention. Cardiovascular examination reveals regular rhythm rate. S1-S2 normal. No S3 or S4. No discernible murmur noted. Heart rate 74 bpm. Lungs reveal scattered rhonchi. Breath sounds equal bilaterally. Saturations are 97 %. No wheezes or crackles. Abdomen soft bowel sounds are heard. No masses or tenderness. Extremities are intact. No cyanosis clubbing or edema. Skin is without rash or lesion. Neurologic examination reveals the patient to be alert and oriented. - Labs CBC & Chem 7: 07/05/23 05:54 07/05/23 05:54 Labs: Abnormal Lab Results - Last 24 Hours (Table) 07/04/23 07/04/23 07/04/23 Range/Units 11:37 16:10 20:13 WBC (3.8-10.6) k/uL MCV (80.0-100.0) fL MCHC (31.0-37.0) g/dL Plt Count (150-450) k/uL Neutrophils # (1.3-7.7) k/uL Lymphocytes # (1.0-4.8) k/uL BUN (9-20) mg/dL Creatinine (0.66-1.25) mg/dL Glucose (74-99) mg/dL POC Glucose (mg/dL) 121 H 119 H 170 H (70-110) mg/dL Calcium (8.4-10.2) mg/dL 07/05/23 07/05/23 07/05/23 Range/Units 05:54 05:54 06:11 WBC 16.5 H (3.8-10.6) k/uL MCV 107.2 H (80.0-100.0) fL MCHC 30.9 L (31.0-37.0) g/dL Plt Count 98 L (150-450) k/uL Neutrophils # 15.0 H (1.3-7.7) k/uL Lymphocytes # 0.3 L (1.0-4.8) k/uL BUN 118 H* (9-20) mg/dL Creatinine 2.87 H (0.66-1.25) mg/dL Glucose 138 H (74-99) mg/dL POC Glucose (mg/dL) 124 H (70-110) mg/dL Calcium 7.9 L (8.4-10.2) mg/dL Microbiology - Last 24 Hours (Table) 06/29/23 17:30 Anaerobic Culture - Final Pericardial Fluid 06/29/23 17:30 Gram Stain - Final Pericardial Fluid Body Fluid Culture - Final Assessment and Plan Assessment: Acute on chronic hypoxemic and hypercapnic respiratory failure. Pericardial effusion, S/P pericardial window, 06/29/2023, POD # 6. Possible developing pneumonia, right lower lobe. Diastolic CHF. Acute on chronic kidney disease. Metabolic encephalopathy. Morbid obesity. Chronic atrial fibrillation, with paroxysmal atrial fibrillation/RVR. Moderately severe aortic stenosis. Obstructive sleep apnea syndrome. History of alcoholism. Hyperlipidemia. Plan: Plan dated 06/29/2023. The patient is scheduled to have a pericardial window, performed today, by [facility]. Otherwise, the patient remains critically ill in the intensive care unit, room 262. The patient's on norepinephrine at 2 mcg/m, dexmedetomidine 0.3 mcg/kg/h, amiodarone at 0.5 mg/m, and a Lasix drip at 10 mg an hour. The patient has been between BiPAP in the AIRVO. Currently he is on BiPAP. The patient came to the intensive care unit, on June 26. We will continue to follow the patient, and make recommendations along the way. Prognosis is certainly guarded. Labs, x-rays, and medications are all reviewed. Plan dated 06/30/2023. The patient had a bedside pericardial drain placed yesterday. About 1 L fluid was removed. The patient continues on Lasix drip at 10 mg an hour, norepinephrine at 7.1 mcg/m, amiodarone at 0.5 mg/m, and Cardizem drip at 7.5 mg an hour. The patient is between AIRVO, and BiPAP. Currently, he is on AIRVO at 60 L/m with an FiO2 of 94%. He we'll continue to follow the patient, and make recommendations along the way. Prognosis is certainly guarded. The fluid was sent to laboratory for analysis. Plan dated 07/01/2023. The patient remains critically O, and is seen in the intensive care unit, room 262. The patient continues on AIRVO, at 50 L/m, with an FiO2 of 75%. He didn't use of BiPAP last night, for short time, according to respiratory therapy. The patient continues on norepinephrine at 3.5 mcg/m, D5W at 50 mL an hour, and Cardizem drip at 7.5 mg an hour. Yesterday, 235 mL of fluid was removed from the pericardium, via the catheter. Labs, x-rays, and medications are reviewed. We will continue to follow the patient, and make recommendations along the way. Prognosis is guarded. Plan dated 07/02/2023. The patient remains in the intensive care unit, his overall situation remains somewhat tenuous. He continues on AIRVO, at 35 L/m with an FiO2 of 50%. Saturations are about 90-91%. He continues on D5W at 75 mL an hour. The patient has had minimal fluid output from the paracardial drainage catheter. Th at may be removed by cardiothoracic surgery. Labs, x-rays, medications are reviewed. We will continue to follow the patient, and make recommendations along the way. The patient's overall condition remains guarded, although, he was a bit more awake and alert today. Plan dated 07/03/2023. The patient is seen today in room 253. The patient remains on AIRVO. He did use BiPAP last night for a few hours. Labs, x-rays, medications are reviewed. The patient is not receiving any IV fluids. Solu-Medrol can be discontinued. The patient could be transferred out of the intensive care unit. We will continue to follow make recommendations along the way. Prognosis is guarded. Plan dated 07/05/2023. The patient will have a pro-calcitonin level checked. In addition, because of a developing infiltrate, and the right lower lobe, we will start him on some antibiotics empirically. If the pro-calcitonin level was normal, the antibiotics can be discontinued. Additional recommendations and suggestions are forthcoming. Labs, x-rays, and medications are reviewed. We will continue to follow the patient, and make recommendations along the way. He's not receiving any IV fluids. Time with Patient: Less than 30
--- NOTE | 2023-07-05 10:30 | P.PN ---
Subjective Patient is seen for follow-up for acute kidney injury. Renal function has improved to some degree. Gordon catheter replaced today Patient is maintained on BiPAP. Serum creatinine at 2.8 today. Objective - Vital Signs Vital signs: Vital Signs Temp 96.9 F L 07/05/23 08:00 Pulse 74 07/05/23 08:47 Resp 24 07/05/23 08:00 BP 118/85 07/05/23 08:00 Pulse Ox 97 07/05/23 08:00 FiO2 50 07/05/23 08:37 Intake & Output 07/04/23 07/05/23 07/05/23 18:59 06:59 18:59 Intake Total 480 Output Total 0 Balance 0 480 Weight 122.6 kg Intake: Oral 480 Output: Post Void Residual 0 Other: Voiding Method Diaper Diaper Diaper Incontinent Incontinent # Voids 1 1 2 # Bowel Movements 2 0 ABP, PAP, CO, CI - Last Documented Arterial Blood Pressure 98/49 - Exam Patient is currently on BiPAP He is awake. Able to carry on a conversation. Remains confused on and off Examination of the heart S1 and S2 Examination of the lungs bilateral breath sounds are heard Abdomen is soft nontender, obese Examination of lower extremity shows no edema - Labs CBC & Chem 7: 07/05/23 05:54 07/05/23 05:54 Labs: Abnormal Lab Results - Last 24 Hours (Table) 07/04/23 07/04/23 07/04/23 Range/Units 11:37 16:10 20:13 WBC (3.8-10.6) k/uL MCV (80.0-100.0) fL MCHC (31.0-37.0) g/dL Plt Count (150-450) k/uL Neutrophils # (1.3-7.7) k/uL Lymphocytes # (1.0-4.8) k/uL BUN (9-20) mg/dL Creatinine (0.66-1.25) mg/dL Glucose (74-99) mg/dL POC Glucose (mg/dL) 121 H 119 H 170 H (70-110) mg/dL Calcium (8.4-10.2) mg/dL 07/05/23 07/05/23 07/05/23 Range/Units 05:54 05:54 06:11 WBC 16.5 H (3.8-10.6) k/uL MCV 107.2 H (80.0-100.0) fL MCHC 30.9 L (31.0-37.0) g/dL Plt Count 98 L (150-450) k/uL Neutrophils # 15.0 H (1.3-7.7) k/uL Lymphocytes # 0.3 L (1.0-4.8) k/uL BUN 118 H* (9-20) mg/dL Creatinine 2.87 H (0.66-1.25) mg/dL Glucose 138 H (74-99) mg/dL POC Glucose (mg/dL) 124 H (70-110) mg/dL Calcium 7.9 L (8.4-10.2) mg/dL Microbiology - Last 24 Hours (Table) 06/29/23 17:30 Anaerobic Culture - Final Pericardial Fluid 06/29/23 17:30 Gram Stain - Final Pericardial Fluid Body Fluid Culture - Final Assessment and Plan Assessment: 1. Acute kidney injury, ATN currently nonoliguric. Component of cardiorenal syndrome as well. Indwelling Gordon catheter present. BUN disproportionately elevated secondary to steroids. Decreasing post discontinuation of Solu-Medrol. Renal function has improved. Off of diuretics. 2. Hyperkalemia associated with acute kidney injury. No evidence of obstruction on ultrasound. Improved with improving urine output. 3. Acute hypercapnic respiratory failure, switched from BiPAP to airVO and today on nasal cannula. 4. Chronic kidney disease NKF stage IV with baseline creatinine around 2 mg/dL etiology is likely nephrosclerosis. Previous UA showed negative to trace protein. UA this admission shows 2+ protein. This will be monitored and workup will be performed down the road. 5. Hypercalcemia associated with primary hyperparathyroidism, started on Sensipar last admission. Currently on hold as calcium is low now. Patient was supposed to have nuclear scan of the parathyroid gland performed as outpatient. 6. Moderate pulmonary hypertension 7. Morbid obesity 8. A. fib with RVR currently maintained on amiodarone drip. 9. Large pericardial effusion status post pericardiocentesis of 1 L and then about 200 mL the next day. 10. Hypernatremia associated with free water deficit Plan: Continue off of IV fluids Continue with IV Lasix for now Possible hemodialysis if renal function not further improvement tomorrow. Repeat labs in a.m. Continue to hold Sensipar We will continue to monitor for need for renal replacement therapy on a daily basis.
[2023-07-05 11:23] LABS: Glucose,Whole Blood 115 mg/dL (70-110)
--- NOTE | 2023-07-05 16:06 | P.PN ---
Subjective Progress Note Date: 07/05/23 73 years old male with multiple medical problems including Atrial Fibrillation, Heart Failure, COPD, GI Bleed, Hyperlipidemia, Hypertension, chronic kidney disease/CPAP/BIPAP,Hiatal hernia, cateracts, diverticulosis, CPAP use, Falls, Patient presents because transferred from [facility] for respiratory failure, on arrival he was hypotensive. He was recently in the hospital 06/17-06/19 for hypercalcemia and he was discharged on Sensipar which is thought secondary to hyperparathyroidism. Patient currently lives in the ICU using the BiPAP machine which limits history taken and provide information on the top of that patient is confused but he follows commands appropriately. He can answer some questions like he says he has no pain. He is asking if he can smoke now we explained for him he cannot declines the nicotine patch. Patient currently mildly tachycardic around 108, blood pressure is better 101/81 while he is on pressors. He is on BiPAP machine and he had a temperature of 98.6. showing creatinine of 5.2 with baseline 2.2-2.9, calcium slightly elevated at 11.5. WBC is 15.7 while on steroids, while rest of CBC is unremarkable TSH is elevated at 4.7 but free T4 is normal at 0[place] [address] Ultrasound showing on obstructive uropathy but there is acute cholecystitis with thickened wall. Chest x-ray is suspicious for cardiomegaly and pulmonary edema EKG showing A. fib with rate of 82 b per minute. Patient currently in the ICU on amiodarone drip, Lasix drip at 10 mg per hour , levophed at 0.03 and Solu-Medrol 60 mg, Precedex and IV thiamine 24 hour interval change 07/04/2023 Patient is seen and evaluated in room at bedside; patient is status post pericardial window, POD #5; drainage catheter has been removed Vital signs are reviewed and stable with temperature of 97.7, pulse 78, respiration 20 and blood pressure 108/79 -- Patient has been placed on Lasix by nephrology Lab review shows sodium of 141, potassium 3.8, BUN of 116 with creatinine of 2.84 07/05/2023 Patient is seen and evaluated in room at bedside; postop day #6, status post pericardial window, insertion of a drainage catheter. Catheter has been removed. The patient is currently on BiPAP, with settings of 6, and 50%. He's not on any IV fluids. We will check a pro-calcitonin level today. The pat iedhaval could not tolerate AIRVO yesterday. Current labs include a white count 16.5, hemoglobin 16, hematocrit 52, and platelet count 98,000. Sodium 140, potassium 4, chlorides 101, CO2 27, BUN 118, and creatinine 2.87. Glucose 124. Chest x-ray shows mild fluid overload, and a potentially developing right lower lobe airspace infiltrate. Objective - Vital Signs Vital signs: Vital Signs Temp 96.9 F L 07/05/23 08:00 Pulse 76 07/05/23 11:28 Resp 24 07/05/23 08:00 BP 118/85 07/05/23 08:00 Pulse Ox 97 07/05/23 08:00 FiO2 50 07/05/23 11:30 Intake & Output 07/04/23 07/05/23 07/05/23 18:59 06:59 18:59 Intake Total 480 Output Total 0 Balance 0 480 Weight 122.6 kg Intake: Oral 480 Output: Post Void Residual 0 Other: Voiding Method Diaper Diaper Diaper Incontinent Incontinent # Voids 1 1 2 # Bowel Movements 2 0 ABP, PAP, CO, CI - Last Documented Arterial Blood Pressure 98/49 - Exam -GENERAL: The patient is awake , looks tired on airvo, , mildly confused. Obese HEENT: Pupils are round and equally reacting to light. EOMI. No scleral icterus. No conjunctival pallor. Normocephalic, atraumatic. No pharyngeal erythema. No thyromegaly. CARDIOVASCULAR: S1 and S2 present. No murmurs, rubs, or gallops. -PULMONARY: Chest is limited air entry on both sides, slightly better than yesterday, no wheezing , no crackles. Mildly tachypneic while he is on BiPAP ABDOMEN: Soft, nontender, nondistended, normoactive bowel sounds. No palpable organomegaly. MUSCULOSKELETAL: No joint swelling or deformity. EXTREMITIES: No cyanosis, clubbing, or pedal edema. NEUROLOGICAL: Gross neurological examination did not reveal any focal deficits. SKIN: No rashes. no petechiae. - Labs CBC & Chem 7: 07/05/23 05:54 07/05/23 05:54 Labs: Abnormal Lab Results - Last 24 Hours (Table) 07/04/23 07/04/23 07/05/23 Range/Units 16:10 20:13 05:54 WBC 16.5 H (3.8-10.6) k/uL MCV 107.2 H (80.0-100.0) fL MCHC 30.9 L (31.0-37.0) g/dL Plt Count 98 L (150-450) k/uL Neutrophils # 15.0 H (1.3-7.7) k/uL Lymphocytes # 0.3 L (1.0-4.8) k/uL BUN (9-20) mg/dL Creatinine (0.66-1.25) mg/dL Glucose (74-99) mg/dL POC Glucose (mg/dL) 119 H 170 H (70-110) mg/dL Calcium (8.4-10.2) mg/dL 07/05/23 07/05/23 07/05/23 Range/Units 05:54 06:11 11:21 WBC (3.8-10.6) k/uL MCV (80.0-100.0) fL MCHC (31.0-37.0) g/dL Plt Count (150-450) k/uL Neutrophils # (1.3-7.7) k/uL Lymphocytes # (1.0-4.8) k/uL BUN 118 H* (9-20) mg/dL Creatinine 2.87 H (0.66-1.25) mg/dL Glucose 138 H (74-99) mg/dL POC Glucose (mg/dL) 124 H 115 H (70-110) mg/dL Calcium 7.9 L (8.4-10.2) mg/dL Microbiology - Last 24 Hours (Table) 06/29/23 17:30 Anaerobic Culture - Final Pericardial Fluid 06/29/23 17:30 Gram Stain - Final Pericardial Fluid Body Fluid Culture - Final Assessment and Plan Assessment: Acute COPD exacerbation Acute on chronic diastolic CHF with a preserved ejection fraction Acute hypoxemic hypercapnic respiratory failure, secondary to above Possible acute cholecystitis, versus intra-abdominal infection on broad-spectrum antibiotic Pericardial effusion status post pericardial window for drainage A. fib and RVR Acute kidney injury on chronic kidney disease stage IV Moderate to severe aortic stenosis Hypercalcemia secondary to hyperparathyroidism on treatment Alcohol use disorder Nicotine dependence Chronic hypoxic respiratory failure Morbid obesity with BMI 41.7. Plan: Continue with oral amiodarone, monitor heart rate Continue with oxygen at 7 L/m via high flow nasal cannula No pressors currently Continue with Solu-Medrol 60 mg General surgery R following for acute cholecystitis, Antibiotic started with Rocephin and Flagyl Continue with D5W Monitor sodium, creatinine Several consultants of the case with the pulmonary/critical care team, nephrology, neurology. Cardiothoracic surgery team Labs and medication were reviewed.. Continue same treatment. Continue with symptomatic treatment. Resume home medication. Monitor labs and vitals. DVT and GI prophylaxis. Further recommendations as per clinical course of the patient DVT prophylaxis: on eliquis GI Prophylaxis: Pepcid PT/OT: differed Prognosis is guarded
[2023-07-05] MEDS: PIPERACILLIN-TAZOBACTAM 3.375 GM in SODIUM CHLORIDE 0.9% 100 ML IVPB SCH (16:44)
[2023-07-05 16:49] LABS: Glucose,Whole Blood 129 mg/dL (70-110)
[2023-07-05 20:10] LABS: Glucose,Whole Blood 105 mg/dL (70-110)
[2023-07-05] MEDS: MONTELUKAST 10 MG TAB PO SCH (20:41)
[2023-07-05] MEDS: ATORVASTATIN 80 MG TAB PO SCH (20:41)
[2023-07-06] MEDS: PIPERACILLIN-TAZOBACTAM 3.375 GM in SODIUM CHLORIDE 0.9% 100 ML IVPB SCH ×4 (00:02→23:57)
[2023-07-06] MEDS: ALBUTEROL NEBULIZED 2.5 MG/3 ML INHALATION PRN ×2 (03:15→03:33)
[2023-07-06 03:43] LABS: Basophils % (A) 0 %; Eosinophils # (A) 0.2 k/uL (0-0.7); Eosinophils % (A) 1 %; HGB 15.2 gm/dL (13.0-17.5); Hypochromasia Marked; Lymphocytes # (A) 0.4 k/uL (1.0-4.8); Lymphocytes % (A) 2 %; MCHC 29.8 g/dL (31.0-37.0); MCV 107.5 fL (80.0-100.0); Macrocytosis Moderate; Monocytes # (A) 1.1 k/uL (0-1.0); Monocytes % (A) 6 %; Neutrophils % (A) 90 %; Platelet Count 100 k/uL (150-450); RBC 4.74 m/uL (4.30-5.90); WBC 17.9 k/uL (3.8-10.6)
[2023-07-06 03:55] LABS: African American GFR (CKD) 22 (>60 ml/min/1.73 sqM); Anion Gap 14 mmol/L; Calcium 7.8 mg/dL (8.4-10.2); Carbon Dioxide 23 mmol/L (22-30); Chloride 100 mmol/L (98-107); Glucose 127 mg/dL (74-99); Non-African American GFR(CKD) 19 (>60 ml/min/1.73 sqM); Potassium 4.2 mmol/L (3.5-5.1); Sodium 137 mmol/L (137-145)
[2023-07-06 04:32] LABS: Blood Urea Nitrogen 127 mg/dL (9-20)
[2023-07-06 06:37] LABS: Glucose,Whole Blood 123 mg/dL (70-110)
[2023-07-06] MEDS: INSULIN ASPART (NovoLOG) 100 UNIT/ML VIAL SQ SCH ×4 (06:40→20:49)
[2023-07-06] MEDS: MIDODRINE 5 MG TAB PO SCH ×3 (06:43→16:54)
[2023-07-06] MEDS: IPRATROPIUM-ALBUTEROL 3 ML NEB INHALATION SCH ×4 (08:06→20:03)
[2023-07-06] MEDS: HEPARIN SODIUM,PORCINE 5,000 UNIT/ML 1 ML VIAL SQ SCH ×2 (08:58→21:20)
[2023-07-06] MEDS: FAMOTIDINE 20 MG/2 ML VIAL IV SCH (08:58)
[2023-07-06] MEDS: FUROSEMIDE 10 MG/ML 4 ML VIAL IV SCH ×2 (08:58→21:19)
[2023-07-06] MEDS ORDERED: HEPARIN SODIUM 1,000 UN/ML (10ML VL) IVP STA (09:00)
[2023-07-06] MEDS ORDERED: LIDOCAINE 1% INJ 10MG/ML (20 ML MDV) SQ ONE (09:00)
[2023-07-06] MEDS: METOPROLOL TARTRATE 12.5 MG TAB PO SCH ×2 (09:21→20:49)
[2023-07-06] MEDS: AMIODARONE 200 MG TAB PO SCH ×2 (09:21→21:20)
[2023-07-06] MEDS: SENNOSIDES 8.6 MG TAB PO SCH (09:21)
[2023-07-06] MEDS: FOLIC ACID 1 MG TAB PO SCH (09:21)
--- NOTE | 2023-07-06 10:07 | P.PN ---
Subjective Progress Note Date: 07/06/23 Principal diagnosis: Respiratory failure. Acute on chronic hypoxic and hypercapnic respiratory failure This is a 73-year-old white male with history of multiple medical problems i ncluding chronic congestive heart failure, COPD, chronic kidney disease, chronic hypoxic respiratory failure, obstructive sleep apnea syndrome, maintained on CPAP now patient was transferred from [facility] with 2 days history of increased shortness of breath. I have seen this patient in the past and his last evaluation in the hospital was on 02/16/2023. At that time the patient presented with acute on chronic hypoxic and hypercapnic respiratory failure with congestive heart failure and COPD. He should also had moderate severe aortic stenosis, and morbid obesity as well as chronic atrial fibrillation. Back then the patient was treated mostly aggressively with diuretics, and he was eventually discharged home after almost a week stay in the ICU. This time the patient has a very similar presentation, I saw the patient in the ER, and his is at bedside. Patient is now on BiPAP which I have adjusted to IPAP of 16 and EPAP 6, and he is also on 100% FiO2. ABG is pending, earlier venous ABG showed a pCO2 of 120 and pH of 7.01. After I evaluated the patient, I recommended immediate transfer to the ICU ABG, ultrasound of the chest, I cut down his IV fluid to KVO, started the patient on Lasix drip at 10 mg per hour. And explained to the that the patient may require intubation mechanical ventilation if his condition does not improve much and a short period of time. For low blood pressure may consider using norepinephrine, would definitely avoid using fluids at this point. Labs were reviewed chest x-ray was reviewed his BUN is 99 creatinine is 5.25, and his creatinine only a few days ago was 2.07. Apparently he is developing a worsening picture of chronic kidney disease. Could be cardiorenal. BNP level is 14,900 Reevaluated today on 06/27/2023, patient remains in the ICU, remains on Lasix drip at 10 mg per hour, amiodarone 0.5 mg/m for atrial fibrillation/RVR which she developed last night patient does have chronic history of atrial fibrillation remains on norepinephrine at 0.04 mcg/kg/m, he is on Precedex at 0.2 mcg/kg/hr, IV fluid at 20 mL per hour in the form of 0.9 normal saline. Blood pressure is noted to be borderline. Hence patient had a left subclavian triple-lumen catheter placed and a left radial arterial line placement. Repeat ABG this morning continues to show significant metabolic and respiratory acidosis pO2 of 79 pCO2 62 pH of 7.21, potassium is up to 5.19, patient was given 1 amp of bicarb for his acidosis. His BUN is 107 creatinine 5.17, slightly better compared to yesterday, patient is being evaluated by nephrology. Remains on BiPAP at 16/6/75% FiO2. And overall his clinical status is critically ill/marginal. Patient is definitely high risk for intubation mechanical ventilation, the patient and his are both aware of this, however at this point I will hold on mechanically ventilated the patient. We'll continue BiPAP, continue Lasix drip, and continue pressors patient may eventually require hemodialysis. Ultrasound of the chest showed small bilateral pleural effusions left more so than right, the left sided pocket is not large enough to consider safe left sided thoracentesis. Patient was reevaluated today on 06/2023, remains in the ICU, remains on Lasix drip at 10 mg per hour, remains on BiPAP at 12/6/75%. Patient is still requiring Precedex at 0.6 mcg/kg/h, norepinephrine at 0.03 mcg/kg/m. Patient is negative balance over the last 24 hours about 2 L. And he is steadily improving but remains critically ill, and simply requiring pressors. ABG showed a pO2 of 76 pCO2 of 50 pH of 7.34, significantly improved compared to his initial ABG on admission where his pCO2 was in the 120 range. Patient remains on Rocephin and Flagyl, his CT of the abdomen raised the possibility of acute cholecystitis, but clinically I do not see any evidence of cholecystitis, the patient has no pain or tenderness in the right upper quadrant. Being considered for a HIDA scan. CT of the brain came back negative for acute process. WBC count today is 13.9 hemoglobin 15.4. Platelets are 226, basic metabolic profile is normal BUN is 111 creatinine is down to 4.44 improving in spite of aggressive diuresis on this patient. If her enzymes are basically normal. Chest x-ray this morning showed cardiomegaly, pulmonary vascular congestion, bilateral pleural effusions, however based on ultrasound, the left-sided pleural effusion was not large enough to consider safe thoracentesis Progress note dated 06/29/2023. 73-year-old male seen in the intensive care unit, room 262. The patient is scheduled to have a pericardial window done today, June 29. Briefly, the patient was admitted to the hospital June 26, for CHF, acute mental status changes, and a pericardial effusion. The patient was admitted to the intensive care unit, on the day of admission. The patient's been between BiPAP, with settings of 12/6, and 75%, or AIRVO, at 60 L/m with an FiO2 of 80%. The patient is currently on norepinephrine at 2 mcg/m, dexmedetomidine at 0.3 mcg/kg/h, amiodarone at 0.5 mg/m, a Lasix drip at 10 mg an hour, and saline at KVO. White count is 13.7, hemoglobin 16, hematocrit 48.9, and a platelet count of 203,000. Sodium 143, potassium 4.1, chlorides 102, CO2 28, BUN 117, and creatinine 3.83. Pro-calcitonin level is 0.47, from yesterday. Chest x-ray shows cardiomegaly, with bibasilar effusions. Progress note dated 06/30/2023. 73-year-old male with a history of pericardial effusion. The patient had a bedside procedure done yesterday, to drain the pericardial effusion. About 1 L of fluid was removed. Currently, he's on AIRVO, at 60 L/m, with an FiO2 of 94%. He continues on Lasix drip at 10 mg an hour, norepinephrine at 7.1 mcg/m, amiodarone at 0.5 mg/m, and a Cardizem drip of 7.5 mg an hour. The patient spent some time on BiPAP as well. White count 15.1, hemoglobin 15, hematocrit 47.6, and platelet count 182,000. Sodium 147, potassium 3.3, chlorides 105, CO2 28, BUN 122, and creatinine 3.72. Glucose 193. Calcium is 9.0. Chest x-ray shows a pericardial drain. There is some volume loss of the left lower lobe, and small bilateral pleural effusions. Progress note dated 07/01/2023. 73-year-old male with history of pericardial effusion. The patient is postop d ay #2, status post pericardial window drainage catheter. He seen today in room 262. He continues on either AIRVO, at 50 L/m, with an FiO2 of 75%, or BiPAP, with settings of 12/6, and 85%. The patient continues on norepinephrine at 3.5 mcg/m, D5W at 50 mL an hour, and Cardizem drip at 7.5 mg an hour. The patient's pericardial catheter, was drained yesterday, and 235 mL of fluid was removed. White count 11.3, hemoglobin 14.3, hematocrit 44.7, and platelet count 136,000. Sodium 148, potassium 3.7, chlorides 107, CO2 27, BUN 129, and creatinine 3.82. Glucose 170. Calcium is 8.6. Chest x-ray shows cardiomegaly, and pulmonary vascular congestion, small bilateral effusions. Progress note dated 07/02/2023. 73-year-old male with history of pericardial effusion. The patient is postop day #3, status post pericardial window with drainage catheter. He seen today in room 262. Currently, he is on AIRVO, at 35 L/m with an FiO2 of 50%. The patient is getting D5W at 75 mL an hour. Over the last couple of days, the fluid removed from the pericardial space, has been very limited. White count is 10.9, hemoglobin 13.4, hematocrit 3.2, and platelet count 97,000. Sodium 147, potassium 3.6, chlorides 108, CO2 29, BUN 132, and creatinine 3.69. Glucose 2:15, calcium is 8.2. Chest x-ray shows cardiomegaly, and mild CHF with pulmonary vascular congestion. Progress note dated 07/03/2023. 73-year-old male with a history of pericardial effusion, postop day #4, status post pericardial window, which drainage catheter. The catheter has subsequently been removed. The patient is seen today in room 253. The patient is currently on AIRVO, with settings of 35 L/m, and an FiO2 of 60%. He's not receiving any IV fluids. Solu-Medrol will be discontinued. He apparently spent a few hours on BiPAP last night, with settings of 12/6, at the percent. The patient has been downgraded, and can be transferred out of the ICU. Laboratory data today includes a white count 12.2, hemoglobin 13.1, hematocrit 42, and platelet count 86,000. Sodium 143, potassium 3.7, chlorides 105, CO2 26, BUN 120, and creatinine 3.43. Calcium is 7.9. Culture data is pending or negative. Chest x-ray shows findings of CHF, and cardiomegaly. Small to moderate pleural effusion, left greater than right. Progress note dated 07/04/2023. 73-year-old male, seen today in room 253. He is postop day #5, status post pericardial window, with insertion of a drainage catheter. Catheter has been removed. Currently, the patient is on BiPAP, with settings of 12/6, and 50%. Alternatively, the patient can be on AIRVO, at 35 L/m, with an FiO2 of 70%. Lasix has been added twice a day by nephrology. I believe that to be appropriate. The patient's not receiving any IV fluids. Labs today include sodium 141, potassium 3.8, chlorides 105, CO2 28, BUN 116, and creatinine 2.84. Calcium is 7.9. Progress note dated 07/05/2023. 73-year-old male seen today in room 253. He's postop day #6, status post pericardial window, insertion of a drainage catheter. Catheter has been removed. The patient is currently on BiPAP, with settings of 12/6, and 50%. He's not on any IV fluids. We will check a pro-calcitonin level today. The patient could not tolerate AIRVO yesterday. Current labs include a white count 16.5, hemoglobin 16, hematocrit 52, and platelet count 98,000. Sodium 140, potassium 4, chlorides 101, CO2 27, BUN 118, and creatinine 2.87. Glucose 124. Chest x-ray shows mild fluid overload, and a potentially developing right lower lobe airspace infiltrate. Progress note dated 07/06/2023. 73-year-old male seen in 253. The patient continues in the intensive care unit. Today is postoperative day #7, status post pericardial window, and insertion of a pericardial drainage catheter. The patient's pericardial drainage catheter has subsequently been removed. This patient 1 day looks better, and the next day looks worse. Today he looks worse. He continues on BiPAP, his been pretty much BiPAP dependent, for the last couple days, with settings of 12/6, and 50%. He could not tolerate the AIRVO. In addition, because of worsening renal function, hemodialysis catheter will be placed, and the patient will undergo hemodialysis. His pro-calcitonin level was 0.41. He's currently on Zosyn. He seems much less alert today. White count 17.9, hemoglobin 15.2, hematocrit 51, and platelet count 100,000. Sodium 137, potassium 4.2, chlorides 100, CO2 23, anion gap 14, BUN 127, creatinine 3.12. Chest x-ray reveals worsening infiltrate in the right lung, and bilateral pleural effusions. Also the upper lobe vessels are enlarged. Objective - Vital Signs Vital signs: Vital Signs Temp 97.6 F 07/06/23 08:00 Pulse 82 07/06/23 09:00 Resp 27 H 07/06/23 09:00 BP 87/65 07/06/23 09:00 Pulse Ox 90 L 07/06/23 09:17 FiO2 50 07/06/23 09:17 Intake & Output 07/05/23 07/06/23 07/06/23 18:59 06:59 18:59 Intake Total 580 460 100 Output Total 400 160 35 Balance 180 300 65 Weight 123 kg Intake: IV 100 100 Piperacillin-Tazobactam 3 100 100 .375 gm In Sodium Chloride 0.9% 100 ml @ 25 mls/hr IVPB Q8HR GERTRUDIS Rx# :[id number] Intake, IV Titration 100 Amount Piperacillin-Tazobactam 3 100 .375 gm In Sodium Chloride 0.9% 100 ml @ 25 mls/hr IVPB Q8HR GERTRUDIS Rx# :[id number] Oral 480 360 Output: Urine 400 160 35 Other: Voiding Method Indwelling Catheter Indwelling Catheter # Voids 1 # Bowel Movements 1 1 ABP, PAP, CO, CI - Last Documented Arterial Blood Pressure 98/49 - Exam No acute distress, currently on BiPAP. Less awake. HEENT examination is grossly unremarkable. Neck supple. Full range of motion. No adenopathy thyromegaly or neck vein distention. Cardiovascular examination reveals regular rhythm rate. S1-S2 normal. No S3 or S4. No discernible murmur noted. Heart rate 92 bpm. Heart sounds are very dis tant. Lungs reveal scattered rhonchi. Breath sounds equal bilaterally. Saturations are only 90%, on BiPAP, at 12/6, and 50%. Abdomen soft bowel sounds are heard. No masses or tenderness. Extremities are intact. No cyanosis clubbing or edema. Skin is without rash or lesion. Neurologic examination reveals the patient to be lethargic/somnolent. - Labs CBC & Chem 7: 07/06/23 03:29 07/06/23 03:29 Labs: Abnormal Lab Results - Last 24 Hours (Table) 07/05/23 07/05/23 07/05/23 Range/Units 05:54 11:21 16:46 WBC (3.8-10.6) k/uL MCV (80.0-100.0) fL MCHC (31.0-37.0) g/dL Plt Count (150-450) k/uL Neutrophils # (1.3-7.7) k/uL Lymphocytes # (1.0-4.8) k/uL Monocytes # (0-1.0) k/uL BUN (9-20) mg/dL Creatinine (0.66-1.25) mg/dL Glucose (74-99) mg/dL POC Glucose (mg/dL) 115 H 129 H (70-110) mg/dL Calcium (8.4-10.2) mg/dL Procalcitonin 0.41 H (0.02-0.09) ng/mL 07/06/23 07/06/23 07/06/23 Range/Units 03:29 03:29 06:36 WBC 17.9 H (3.8-10.6) k/uL MCV 107.5 H (80.0-100.0) fL MCHC 29.8 L (31.0-37.0) g/dL Plt Count 100 L (150-450) k/uL Neutrophils # 16.0 H (1.3-7.7) k/uL Lymphocytes # 0.4 L (1.0-4.8) k/uL Monocytes # 1.1 H (0-1.0) k/uL BUN 127 H* (9-20) mg/dL Creatinine 3.12 H (0.66-1.25) mg/dL Glucose 127 H (74-99) mg/dL POC Glucose (mg/dL) 123 H (70-110) mg/dL Calcium 7.8 L (8.4-10.2) mg/dL Procalcitonin (0.02-0.09) ng/mL Assessment and Plan Assessment: Acute on chronic hypoxemic and hypercapnic respiratory failure. Pericardial effusion, S/P pericardial window, 06/29/2023, POD # 7. Possible developing pneumonia, right lower lobe. Diastolic CHF. Acute on chronic kidney disease. Metabolic encephalopathy. Morbid obesity. Chronic atrial fibrillation, with paroxysmal atrial fibrillation/RVR. Moderately severe aortic stenosis. Obstructive sleep apnea syndrome. History of alcoholism. Hyperlipidemia. Plan: Plan dated 06/29/2023. The patient is scheduled to have a pericardial window, performed today, by cardiothoracic surgery. Otherwise, the patient remains critically ill in the intensive care unit, room 262. The patient's on norepinephrine at 2 mcg/m, dexmedetomidine 0.3 mcg/kg/h, amiodarone at 0.5 mg/m, and a Lasix drip at 10 mg an hour. The patient has been between BiPAP in the AIRVO. Currently he is on BiPAP. The patient came to the intensive care unit, on June 26. We will continue to follow the patient, and make recommendations along the way. Prognosis is certainly guarded. Labs, x-rays, and medications are all reviewed. Plan dated 06/30/2023. The patient had a bedside pericardial drain placed yesterday. About 1 L fluid was removed. The patient continues on Lasix drip at 10 mg an hour, norepinephrine at 7.1 mcg/m, amiodarone at 0.5 mg/m, and Cardizem drip at 7.5 mg an hour. The patient is between AIRVO, and BiPAP. Currently, he is on AIRVO at 60 L/m with an FiO2 of 94%. He we'll continue to follow the patient, and make recommendations along the way. Prognosis is certainly guarded. The fluid was sent to laboratory for analysis. Plan dated 07/01/2023. The patient remains critically O, and is seen in the intensive care unit, room 262. The patient continues on AIRVO, at 50 L/m, with an FiO2 of 75%. He didn't use of BiPAP last night, for short time, according to respiratory therapy. The patient continues on norepinephrine at 3.5 mcg/m, D5W at 50 mL an hour, and Cardizem drip at 7.5 mg an hour. Yesterday, 235 mL of fluid was removed from the pericardium, via the catheter. Labs, x-rays, and medications are reviewed. We will continue to follow the patient, and make recommendations along the way. Prognosis is guarded. Plan dated 07/02/2023. The patient remains in the intensive care unit, his overall situation remains somewhat tenuous. He continues on AIRVO, at 35 L/m with an FiO2 of 50%. Saturations are about 90-91%. He continues on D5W at 75 mL an hour. The patient has had minimal fluid output from the paracardial drainage catheter. That may be removed by cardiothoracic surgery. Labs, x-rays, medications are reviewed. We will continue to follow the patient, and make recommendations along the way. The patient's overall condition remains guarded, although, he was a bit more awake and alert today. Plan dated 07/03/2023. The patient is seen today in room 253. The patient remains on AIRVO. He did use BiPAP last night for a few hours. Labs, x-rays, medications are reviewed. The patient is not receiving any IV fluids. Solu-Medrol can be discontinued. The patient could be transferred out of the intensive care unit. We will continue to follow make recommendations along the way. Prognosis is guarded. Plan dated 07/05/2023. The patient will have a pro-calcitonin level checked. In addition, because of a developing infiltrate, and the right lower lobe, we will start him on some antibiotics empirically. If the pro-calcitonin level was normal, the antibiotics can be discontinued. Additional recommendations and suggestions are forthcoming. Labs, x-rays, and medications are reviewed. We will continue to follow the patient, and make recommendations along the way. He's not receiving any IV fluids. Plan dated 07/06/2023. The patient's overall condition in my opinion has worsened overnight. The pat ient was able to tolerate AIRVO the past, but seems to be BiPAP dependent at this time. In addition, his pro-calcitonin level was elevated, and he continues on Zosyn, for developing right-sided pneumonia. Also, the patient's chest x-ray suggests fluid overload, and renal function is worsening, so hemodialysis catheter is going to be placed, and the patient should have hemodialysis today. Labs, x-rays, and medications are reviewed. The patient's overall prognosis remains guarded. Certainly, today, he looks much worse than he did yesterday. We will continue to follow and make recommendations along the way. Time with Patient: Greater than 30
--- NOTE | 2023-07-06 10:58 | P.PN ---
Subjective Patient is seen for follow-up for acute kidney injury. Renal function had improved however patient has not had much urine output overnight. His respiratory status is worse requiring more oxygen. Patient remains on BiPAP. Urine output 4 mL last hour Serum creatinine increased to 3.1 and BUN is 127. Objective - Vital Signs Vital signs: Vital Signs Temp 97.6 F 07/06/23 08:00 Pulse 98 07/06/23 10:00 Resp 18 07/06/23 10:00 BP 85/51 07/06/23 10:00 Pulse Ox 93 L 07/06/23 10:00 FiO2 50 07/06/23 10:00 Intake & Output 07/05/23 07/06/23 07/06/23 18:59 06:59 18:59 Intake Total 580 460 250 Output Total 400 160 39 Balance 180 300 211 Weight 123 kg Intake: IV 100 100 Piperacillin-Tazobactam 3 100 100 .375 gm In Sodium Chloride 0.9% 100 ml @ 25 mls/hr IVPB Q8HR GERTRUDIS Rx# :[id number] Intake, IV Titration 100 Amount Piperacillin-Tazobactam 3 100 .375 gm In Sodium Chloride 0.9% 100 ml @ 25 mls/hr IVPB Q8HR GERTRUDIS Rx# :[id number] Oral 480 360 150 Output: Urine 400 160 39 Other: Voiding Method Indwelling Catheter Indwelling Catheter # Voids 1 # Bowel Movements 1 1 ABP, PAP, CO, CI - Last Documented Arterial Blood Pressure 98/49 - Exam Patient is currently on BiPAP He is awake. Short of breath. Remains confused on and off Examination of the heart S1 and S2 Examination of the lungs bilateral breath sounds are heard Abdomen is soft nontender, obese Examination of lower extremity shows trace edema - Labs CBC & Chem 7: 07/06/23 03:29 07/06/23 03:29 Labs: Abnormal Lab Results - Last 24 Hours (Table) 07/05/23 07/05/23 07/05/23 Range/Units 05:54 11:21 16:46 WBC (3.8-10.6) k/uL MCV (80.0-100.0) fL MCHC (31.0-37.0) g/dL Plt Count (150-450) k/uL Neutrophils # (1.3-7.7) k/uL Lymphocytes # (1.0-4.8) k/uL Monocytes # (0-1.0) k/uL BUN (9-20) mg/dL Creatinine (0.66-1.25) mg/dL Glucose (74-99) mg/dL POC Glucose (mg/dL) 115 H 129 H (70-110) mg/dL Calcium (8.4-10.2) mg/dL Procalcitonin 0.41 H (0.02-0.09) ng/mL 07/06/23 07/06/23 07/06/23 Range/Units 03:29 03:29 06:36 WBC 17.9 H (3.8-10.6) k/uL MCV 107.5 H (80.0-100.0) fL MCHC 29.8 L (31.0-37.0) g/dL Plt Count 100 L (150-450) k/uL Neutrophils # 16.0 H (1.3-7.7) k/uL Lymphocytes # 0.4 L (1.0-4.8) k/uL Monocytes # 1.1 H (0-1.0) k/uL BUN 127 H* (9-20) mg/dL Creatinine 3.12 H (0.66-1.25) mg/dL Glucose 127 H (74-99) mg/dL POC Glucose (mg/dL) 123 H (70-110) mg/dL Calcium 7.8 L (8.4-10.2) mg/dL Procalcitonin (0.02-0.09) ng/mL Assessment and Plan Assessment: 1. Acute kidney injury, ATN currently nonoliguric. Component of cardiorenal syndrome as well. Indwelling Gordon catheter present. Renal function had improved however worse again with oliguria. We will proceed with renal replacement therapy. 2. Hyperkalemia associated with acute kidney injury. No evidence of obstruction on ultrasound. 3. Acute hypercapnic respiratory failure, switched from BiPAP to airVO and today on nasal cannula. 4. Chronic kidney disease NKF stage IV with baseline creatinine around 2 mg/dL etiology is likely nephrosclerosis. Previous UA showed negative to trace protein. UA this admission shows 2+ protein. This will be monitored and workup will be performed down the road. 5. Hypercalcemia associated with primary hyperparathyroidism, started on Sensipar last admission. Currently on hold as calcium is low now. Patient was supposed to have nuclear scan of the parathyroid gland performed as outpatient. 6. Moderate pulmonary hypertension 7. Morbid obesity 8. A. fib with RVR currently maintained on amiodarone drip. 9. Large pericardial effusion status post pericardiocentesis of 1 L and then about 200 mL the next day. 10. Hypernatremia associated with free water deficit, resolved Plan: Hemodialysis today and repeat in a.m. Goal UF 1-2 L Increase midodrine to 10 mg 3 times a day and can repeat dose prior to dialysis.
--- NOTE | 2023-07-06 11:10 | XR ---
EXAMINATION TYPE: XR chest 1V portable DATE OF EXAM: 07/06/2023 Comparison: 07/05/2023 Clinical History: 73-year-old male short of breath Findings: Heart is moderately enlarged. Patchy and confluent airspace disease, right greater than left is incre asing. Small bilateral pleural effusions persist. Impression: Cardiomegaly and worsening asymmetric airspace disease, right greater than left. Ongoing small pleura l effusions. Correlate for worsening atypical pulmonary edema.
--- NOTE | 2023-07-06 11:24 | P.GSCN ---
History of Present Illness History of present illness: 73-year-old white male consulted for placement of dialysis catheter. Patient has history of acute kidney injury with oliguria with high BUN/creatinine. Patient is on respiratory failure and nasal oxygen. Patient also has a morbid obesity patient also has a history of at fibrillation. Plan is placement of dialysis catheter Patient was seen in his room patient is very short of breath chest has crackles bilateral. Abdomen is protuberant no peritoneal sign noted Femorals are 1+ bilateral plan is placement of a dialysis catheter risk and complication discussed Past Medical History Past Medical History: Atrial Fibrillation, Heart Failure, COPD, GI Bleed, Hyperlipidemia, Hypertension, Renal Disease, Sleep Apnea/CPAP/BIPAP Additional Past Medical History / Comment(s): Hiatal hernia, cateracts, diverticulosis, CPAP use, Falls, History of Any Multi-Drug Resistant Organisms: None Reported Past Surgical History: Heart Catheterization Additional Past Surgical History / Comment(s): Bilateral cataract surgery, ganglion cyst removed, EGD/colonoscopy, cardioversion Past Anesthesia/Blood Transfusion Reactions: No Reported Reaction Past Psychological History: No Psychological Hx Reported Smoking Status: Former smoker Past Alcohol Use History: Daily Past Drug Use History: None Reported - Past Family History Mother Family Medical History: Cancer Father Family Medical History: Cancer, Myocardial Infarction (CT) Medications and Allergies Home Medications Medication Instructions Recorded Confirmed Type Albuterol Inhaler [Ventolin Hfa 1 - 2 puff INHALATION RT-Q4H PRN 08/18/18 History Inhaler] Apixaban [Eliquis] 5 mg PO BID 08/18/18 06/26/23 History Ipratropium-Albuterol Nebulize 3 ml INHALATION RT-QID PRN 08/18/18 06/26/23 History [Duoneb 0.5 mg-3 mg/3 ml Soln] Metoprolol Tartrate 25 mg PO TID 08/18/18 06/26/23 History Montelukast [Singulair] 10 mg PO HS 08/18/18 06/26/23 History Atorvastatin [Lipitor] 80 mg PO HS 02/12/23 06/26/23 History Budesonide [Pulmicort] 0.5 mg INHALATION RT-BID 02/12/23 06/26/23 History Cyanocobalamin (Vitamin B-12) 1,000 mcg PO HS 02/12/23 06/26/23 History [Vitamin B-12] Famotidine [Pepcid] 20 mg PO DAILY 02/12/23 06/26/23 History Gabapentin [Neurontin] 100 mg PO BID@1300,2100 02/12/23 06/26/23 History Gabapentin [Neurontin] 200 mg PO DAILY@0800 02/12/23 06/26/23 History allopurinoL [Zyloprim] 100 mg PO HS 02/12/23 06/26/23 History Torsemide [Demadex] 40 mg PO DAILY 30 Days #30 tablet 02/16/23 06/26/23 Rx Ketoconazole 2% Shampoo [Nizoral] 1 applic TOPICAL Q2D 06/17/23 06/26/23 History Omalizumab [Xolair] 300 mg SQ Q28H 06/17/23 06/26/23 History Thiamine [Vitamin B-1] 100 mg PO DAILY@1200 06/17/23 06/26/23 History Cinacalcet [Sensipar] 30 mg PO DAILY #60 tab 06/19/23 06/26/23 Rx Allergies Allergy/AdvReac Type Severity Reaction Status Date / Time No Known Allergies Allergy Verified 06/17/23 11:41 Surgical - Exam Vital Signs Pulse Resp BP Pulse Ox 74 12 83/69 92 L 06/26/23 12:31 06/26/23 12:31 06/26/23 12:31 06/26/23 12:31 Results - Labs 07/06/23 03:29 07/06/23 03:29 Abnormal Lab Results - Last 24 Hours (Table) 07/05/23 07/05/23 07/05/23 Range/Units 05:54 11:21 16:46 WBC (3.8-10.6) k/uL MCV (80.0-100.0) fL MCHC (31.0-37.0) g/dL Plt Count (150-450) k/uL Neutrophils # (1.3-7.7) k/uL Lymphocytes # (1.0-4.8) k/uL Monocytes # (0-1.0) k/uL BUN (9-20) mg/dL Creatinine (0.66-1.25) mg/dL Glucose (74-99) mg/dL POC Glucose (mg/dL) 115 H 129 H (70-110) mg/dL Calcium (8.4-10.2) mg/dL Procalcitonin 0.41 H (0.02-0.09) ng/mL 07/06/23 07/06/23 07/06/23 Range/Units 03:29 03:29 06:36 WBC 17.9 H (3.8-10.6) k/uL MCV 107.5 H (80.0-100.0) fL MCHC 29.8 L (31.0-37.0) g/dL Plt Count 100 L (150-450) k/uL Neutrophils # 16.0 H (1.3-7.7) k/uL Lymphocytes # 0.4 L (1.0-4.8) k/uL Monocytes # 1.1 H (0-1.0) k/uL BUN 127 H* (9-20) mg/dL Creatinine 3.12 H (0.66-1.25) mg/dL Glucose 127 H (74-99) mg/dL POC Glucose (mg/dL) 123 H (70-110) mg/dL Calcium 7.8 L (8.4-10.2) mg/dL Procalcitonin (0.02-0.09) ng/mL Diabetes panel 07/06/23 Range/Units 03:29 Sodium 137 (137-145) mmol/L Potassium 4.2 (3.5-5.1) mmol/L Chloride 100 (98-107) mmol/L Carbon Dioxide 23 (22-30) mmol/L BUN 127 H* (9-20) mg/dL Creatinine 3.12 H (0.66-1.25) mg/dL Glucose 127 H (74-99) mg/dL Calcium 7.8 L (8.4-10.2) mg/dL Calcium panel 07/06/23 Range/Units 03:29 Calcium 7.8 L (8.4-10.2) mg/dL Pituitary panel 07/06/23 Range/Units 03:29 Sodium 137 (137-145) mmol/L Potassium 4.2 (3.5-5.1) mmol/L Chloride 100 (98-107) mmol/L Carbon Dioxide 23 (22-30) mmol/L BUN 127 H* (9-20) mg/dL Creatinine 3.12 H (0.66-1.25) mg/dL Glucose 127 H (74-99) mg/dL Calcium 7.8 L (8.4-10.2) mg/dL Adrenal panel 07/06/23 Range/Units 03:29 Sodium 137 (137-145) mmol/L Potassium 4.2 (3.5-5.1) mmol/L Chloride 100 (98-107) mmol/L Carbon Dioxide 23 (22-30) mmol/L BUN 127 H* (9-20) mg/dL Creatinine 3.12 H (0.66-1.25) mg/dL Glucose 127 H (74-99) mg/dL Calcium 7.8 L (8.4-10.2) mg/dL
--- NOTE | 2023-07-06 11:26 | P.PCN ---
Description of Procedure: Preoperative diagnosis acute kidney injury oliguria and a posterior was same Patient was seen in the disc care unit right groin was prepped and draped by sterile manner 1% lidocaine were infiltrated right groin. Ultrasound-guided Dr. Leonardo introduced right femoral vein micropuncture guidewire was passed. 4- [place] sheath advanced top of the guidewire after that we passed a regular guidewire without any resistance dilator advanced top the guidewire then replaced triple-lumen dialysis catheter flushed with heparin saline and Hep-Lock secured with 3-0 nylon patient brought to the procedure well
[2023-07-06 11:37] LABS: Glucose,Whole Blood 156 mg/dL (70-110)
--- NOTE | 2023-07-06 14:57 | P.PN ---
Subjective Progress Note Date: 07/06/23 73 years old male with multiple medical problems including Atrial Fibrillation, Heart Failure, COPD, GI Bleed, Hyperlipidemia, Hypertension, chronic kidney disease/CPAP/BIPAP,Hiatal hernia, cateracts, diverticulosis, CPAP use, Falls, Patient presents because transferred from [facility] for respiratory failure, on arrival he was hypotensive. He was recently in the hospital 06/17-06/19 for hypercalcemia and he was discharged on Sensipar which is thought secondary to hyperparathyroidism. Patient currently lives in the ICU using the BiPAP machine which limits history taken and provide information on the top of that patient is confused but he follows commands appropriately. He can answer some questions like he says he has no pain. He is asking if he can smoke now we explained for him he cannot declines the nicotine patch. Patient currently mildly tachycardic around 108, blood pressure is better 101/81 while he is on pressors. He is on BiPAP machine and he had a temperature of 98.6. showing creatinine of 5.2 with baseline 2.2-2.9, calcium slightly elevated at 11.5. WBC is 15.7 while on steroids, while rest of CBC is unremarkable TSH is elevated at 4.7 but free T4 is normal [place] 0[place] [address] Ultrasound showing on obstructive uropathy but there is acute cholecystitis with thickened wall. Chest x-ray is suspicious for cardiomegaly and pulmonary edema EKG showing A. fib with rate of 82 b per minute. Patient currently in the ICU on amiodarone drip, Lasix drip at 10 mg per hour , levophed at 0.03 and Solu-Medrol 60 mg, Precedex and IV thiamine 24 hour interval change 07/04/2023 Patient is seen and evaluated in room at bedside; patient is status post pericardial window, POD #5; drainage catheter has been removed Vital signs are reviewed and stable with temperature of 97.7, pulse 78, respiration 20 and blood pressure 108/79 -- Patient has been placed on Lasix by nephrology Lab review shows sodium of 141, potassium 3.8, BUN of 116 with creatinine of 2.84 07/05/2023 Patient is seen and evaluated in room at bedside; postop day #6, status post pericardial window, insertion of a drainage catheter. Catheter has been removed. The patient is currently on BiPAP, with settings of 6, and 50%. He's not on any IV fluids. We will check a pro-calcitonin level today. The pat susie could not tolerate AIRVO yesterday. Current labs include a white count 16.5, hemoglobin 16, hematocrit 52, and platelet count 98,000. Sodium 140, potassium 4, chlorides 101, CO2 27, BUN 118, and creatinine 2.87. Glucose 124. Chest x-ray shows mild fluid overload, and a potentially developing right lower lobe airspace infiltrate. 07/06/2023 Patient is seen and evaluated in room in ICU; patient has not had much urine output overnight resulting in worsening respiratory status and requiring more oxygen; remains on BiPAP; currently undergoing hemodialysis Hemodialysis vascular surgery yesterday; nephrology on board and planning to repeat hemodialysis in a.m. - Patient is placed on Midrin 10 mg 3 times a day with 1 dose prior to hemodialysis as needed Objective - Vital Signs Vital signs: Vital Signs Temp 97.6 F 07/06/23 08:00 Pulse 84 07/06/23 11:41 Resp 18 07/06/23 10:00 BP 85/51 07/06/23 10:00 Pulse Ox 92 L 07/06/23 11:29 FiO2 92 07/06/23 11:29 Intake & Output 07/05/23 07/06/23 07/06/23 18:59 06:59 18:59 Intake Total 580 460 250 Output Total 400 160 39 Balance 180 300 211 Weight 123 kg Intake: IV 100 100 Piperacillin-Tazobactam 3 100 100 .375 gm In Sodium Chloride 0.9% 100 ml @ 25 mls/hr IVPB Q8HR GERTRUDIS Rx# :[id number] Intake, IV Titration 100 Amount Piperacillin-Tazobactam 3 100 .375 gm In Sodium Chloride 0.9% 100 ml @ 25 mls/hr IVPB Q8HR GERTRUDIS Rx# :[id number] Oral 480 360 150 Output: Urine 400 160 39 Other: Voiding Method Indwelling Catheter Indwelling Catheter # Voids 1 # Bowel Movements 1 1 ABP, PAP, CO, CI - Last Documented Arterial Blood Pressure 98/49 - Exam -GENERAL: The patient is awake , looks tired on airvo, , mildly confused. Obese HEENT: Pupils are round and equally reacting to light. EOMI. No scleral icterus. No conjunctival pallor. Normocephalic, atraumatic. No pharyngeal erythema. No thyromegaly. CARDIOVASCULAR: S1 and S2 present. No murmurs, rubs, or gallops. -PULMONARY: Chest is limited air entry on both sides, slightly better than yesterday, no wheezing , no crackles. Mildly tachypneic while he is on BiPAP ABDOMEN: Soft, nontender, nondistended, normoactive bowel sounds. No palpable organomegaly. MUSCULOSKELETAL: No joint swelling or deformity. EXTREMITIES: No cyanosis, clubbing, or pedal edema. NEUROLOGICAL: Gross neurological examination did not reveal any focal deficits. SKIN: No rashes. no petechiae. - Labs CBC & Chem 7: 07/06/23 03:29 07/06/23 03:29 Labs: Abnormal Lab Results - Last 24 Hours (Table) 07/05/23 07/05/23 07/06/23 Range/Units 05:54 16:46 03:29 WBC 17.9 H (3.8-10.6) k/uL MCV 107.5 H (80.0-100.0) fL MCHC 29.8 L (31.0-37.0) g/dL Plt Count 100 L (150-450) k/uL Neutrophils # 16.0 H (1.3-7.7) k/uL Lymphocytes # 0.4 L (1.0-4.8) k/uL Monocytes # 1.1 H (0-1.0) k/uL BUN (9-20) mg/dL Creatinine (0.66-1.25) mg/dL Glucose (74-99) mg/dL POC Glucose (mg/dL) 129 H (70-110) mg/dL Calcium (8.4-10.2) mg/dL Procalcitonin 0.41 H (0.02-0.09) ng/mL 07/06/23 07/06/23 07/06/23 Range/Units 03:29 06:36 11:35 WBC (3.8-10.6) k/uL MCV (80.0-100.0) fL MCHC (31.0-37.0) g/dL Plt Count (150-450) k/uL Neutrophils # (1.3-7.7) k/uL Lymphocytes # (1.0-4.8) k/uL Monocytes # (0-1.0) k/uL BUN 127 H* (9-20) mg/dL Creatinine 3.12 H (0.66-1.25) mg/dL Glucose 127 H (74-99) mg/dL POC Glucose (mg/dL) 123 H 156 H (70-110) mg/dL Calcium 7.8 L (8.4-10.2) mg/dL Procalcitonin (0.02-0.09) ng/mL Assessment and Plan Assessment: Acute COPD exacerbation Acute on chronic diastolic CHF with a preserved ejection fraction Acute hypoxemic hypercapnic respiratory failure, secondary to above Possible acute cholecystitis, versus intra-abdominal infection on broad-spectrum antibiotic Pericardial effusion status post pericardial window for drainage A. fib and RVR Acute kidney injury on chronic kidney disease stage IV Moderate to severe aortic stenosis Hypercalcemia secondary to hyperparathyroidism on treatment Alcohol use disorder Nicotine dependence Chronic hypoxic respiratory failure Morbid obesity with BMI 41.7. Plan: Continue with oral amiodarone, monitor heart rate Continue with oxygen at 7 L/m via high flow nasal cannula No pressors currently Continue with Solu-Medrol 60 mg General surgery R following for acute cholecystitis, Antibiotic started with Rocephin and Flagyl Continue with D5W Monitor sodium, creatinine Several consultants of the case with the pulmonary/critical care team, nephrology, neurology. Cardiothoracic surgery team Labs and medication were reviewed.. Continue same treatment. Continue with symptomatic treatment. Resume home medication. Monitor labs and vitals. DVT and GI prophylaxis. Further recommendations as per clinical course of the patient DVT prophylaxis: on eliquis GI Prophylaxis: Pepcid PT/OT: differed Prognosis is guarded
[2023-07-06 16:38] LABS: Glucose,Whole Blood 87 mg/dL (70-110)
[2023-07-06 19:58] LABS: Glucose,Whole Blood 117 mg/dL (70-110)
[2023-07-06] MEDS: ATORVASTATIN 80 MG TAB PO SCH (21:20)
[2023-07-06] MEDS: MONTELUKAST 10 MG TAB PO SCH (21:20)
[2023-07-06 23:17] LABS: Hepatitis B Surface AB- Quant 3.5 mIU/mL; Hepatitis B Surface Antigen Nonreactive
[2023-07-07] MEDS ORDERED: SODIUM CHLORIDE 0.9% 1,000 ML IV ONE (01:38)
[2023-07-07] MEDS: ALBUTEROL NEBULIZED 2.5 MG/3 ML INHALATION PRN ×2 (03:03→23:31)
[2023-07-07 03:34] LABS: Glucose,Whole Blood 97 mg/dL (70-110)
[2023-07-07] MEDS: NOREPINEPHRINE 4 MG in SODIUM CHLORIDE 0.9% 250 ML IV SCH (05:17)
[2023-07-07 05:22] LABS: African American GFR (CKD) 22 (>60 ml/min/1.73 sqM); Anion Gap 14 mmol/L; Blood Urea Nitrogen 100 mg/dL (9-20); Calcium 7.5 mg/dL (8.4-10.2); Carbon Dioxide 19 mmol/L (22-30); Chloride 102 mmol/L (98-107); Glucose 88 mg/dL (74-99); Non-African American GFR(CKD) 19 (>60 ml/min/1.73 sqM); Sodium 135 mmol/L (137-145)
[2023-07-07 05:41] LABS: Potassium 5.3 mmol/L (3.5-5.1)
[2023-07-07 06:53] LABS: Glucose,Whole Blood 94 mg/dL (70-110)
--- NOTE | 2023-07-07 07:26 | XR ---
EXAMINATION TYPE: XR chest 1V portable DATE OF EXAM: 07/07/2023 5:42 AM CLINICAL INDICATION:Male, 73 years old with history of lung status; [facility] COMPARISON: Chest radiographs from 07/06/2023. TECHNIQUE: XR chest 1V portable Frontal view of the chest. FINDINGS: Lungs/Pleura: Multifocal right-sided airspace opacities with associated pleural effusion. There is no evidence of pleural effusion, focal consolidation, or pneumothorax. Pulmonary vascularity: Unremarkable. Heart/mediastinum: Cardiomediastinal silhouette is unremarkable. Musculoskeletal: No acute osseous pathology. IMPRESSION: Right-sided multifocal airspace opacities with associated pleural effusion. Correlate for developing pneumonia. Findings have slightly worsened from 07/06/2023. Consider aspiration.
[2023-07-07] MEDS: INSULIN ASPART (NovoLOG) 100 UNIT/ML VIAL SQ SCH ×4 (07:27→20:51)
[2023-07-07] MEDS: IPRATROPIUM-ALBUTEROL 3 ML NEB INHALATION SCH ×4 (07:36→19:57)
[2023-07-07] MEDS: PIPERACILLIN-TAZOBACTAM 3.375 GM in SODIUM CHLORIDE 0.9% 100 ML IVPB SCH ×2 (07:52→16:21)
[2023-07-07] MEDS: MIDODRINE 5 MG TAB PO SCH ×3 (07:53→16:31)
[2023-07-07 08:16] LABS: HCT 48.2 % (39.0-53.0); HGB 15.2 gm/dL (13.0-17.5); Hypochromasia Moderate; MCHC 31.5 g/dL (31.0-37.0); MCV 104.9 fL (80.0-100.0); Macrocytosis Moderate; Mean Platelet Volume 12.9; RDW 14.1 % (11.5-15.5); WBC 12.7 k/uL (3.8-10.6)
[2023-07-07 08:19] LABS: Platelet Count 98 k/uL (150-450)
[2023-07-07] MEDS: METOPROLOL TARTRATE 12.5 MG TAB PO SCH ×2 (08:22→20:51)
[2023-07-07] MEDS: HEPARIN SODIUM,PORCINE 5,000 UNIT/ML 1 ML VIAL SQ SCH ×2 (09:09→20:51)
[2023-07-07] MEDS: FAMOTIDINE 20 MG/2 ML VIAL IV SCH (09:09)
--- NOTE | 2023-07-07 10:19 | P.PN ---
Subjective Progress Note Date: 07/07/23 Acute on chronic hypoxic and hypercapnic respiratory failure This is a 73-year-old white male with history of multiple medical problems including chronic congestive heart failure, COPD, chronic kidney disease, chronic hypoxic respiratory failure, obstructive sleep apnea syndrome, maintained on CPAP now patient was transferred from [facility] with 2 days history of increased shortness of breath. I have seen this patient in the past and his last evaluation in the hospital was on 02/16/2023. At that time the patient presented with acute on chronic hypoxic and hypercapnic respiratory failure with congestive heart failure and COPD. He should also had moderate severe aortic stenosis, and morbid obesity as well as chronic atrial fibrillation. Back then the patient was treated mostly aggressively with diuretics, and he was eventually discharged home after almost a week stay in the ICU. This time the patient has a very similar presentation, I saw the patient in the ER, and his is at bedside. Patient is now on BiPAP which I have adjusted to IPAP of 16 and EPAP 6, and he is also on 100% FiO2. ABG is pending, earlier venous ABG showed a pCO2 of 120 and pH of 7.01. After I evaluated the patient, I recommended immediate transfer to the ICU ABG, ultrasound of the chest, I cut down his IV fluid to KVO, started the patient on Lasix drip at 10 mg per hour. And explained to the that the patient may require intubation mechanical ventilation if his condition does not improve much and a short period of time. For low blood pressure may consider using norepinephrine, would definitely avoid using fluids at this point. Labs were reviewed chest x-ray was reviewed his BUN is 99 creatinine is 5.25, and his creatinine only a few days ago was 2.07. Apparently he is developing a worsening picture of chronic kidney disease. Could be cardiorenal. BNP level is 14,900 Reevaluated today on 06/27/2023, patient remains in the ICU, remains on Lasix drip at 10 mg per hour, amiodarone 0.5 mg/m for atrial fibrillation/RVR which she developed last night patient does have chronic history of atrial fibrillation remains on norepinephrine at 0.04 mcg/kg/m, he is on Precedex at 0.2 mcg/kg/hr, IV fluid at 20 mL per hour in the form of 0.9 normal saline. Blood pressure is noted to be borderline. Hence patient had a left subclavian triple-lumen catheter placed and a left radial arterial line placement. Repeat ABG this morning continues to show significant metabolic and respiratory acidosis pO2 of 79 pCO2 62 pH of 7.21, potassium is up to 5.19, patient was given 1 amp of bicarb for his acidosis. His BUN is 107 creatinine 5.17, slightly better compared to yesterday, patient is being evaluated by nephrology. Remains on BiPAP at 16/6/75% FiO2. And overall his clinical status is critically ill/marginal. Patient is definitely high risk for intubation mechanical ventilation, the patient and his are both aware of this, however at this point I will hold on mechanically ventilated the patient. We'll continue BiPAP, continue Lasix drip, and continue pressors patient may eventually require hemodialysis. Ultrasound of the chest showed small bilateral pleural effusions left more so than right, the left sided pocket is not large enough to consider safe left sided thoracentesis. Patient was reevaluated today on 06/2023, remains in the ICU, remains on Lasix drip at 10 mg per hour, remains on BiPAP at 12/6/75%. Patient is still requiring Precedex at 0.6 mcg/kg/h, norepinephrine at 0.03 mcg/kg/m. Patient is negative balance over the last 24 hours about 2 L. And he is steadily improving but remains critically ill, and simply requiring pressors. ABG showed a pO2 of 76 pCO2 of 50 pH of 7.34, significantly improved compared to his initial ABG on admission where his pCO2 was in the 120 range. Patient remains on Rocephin and Flagyl, his CT of the abdomen raised the possibility of acute cholecystitis, but clinically I do not see any evidence of cholecystitis, the patient has no pain or tenderness in the right upper quadrant. Being considered for a HIDA scan. CT of the brain came back negative for acute process. WBC count today is 13.9 hemoglobin 15.4. Platelets are 226, basic metabolic profile is normal BUN is 111 creatinine is down to 4.44 improving in spite of aggressive diuresis on this patient. If her enzymes are basically normal. Chest x-ray this morning showed cardiomegaly, pulmonary vascular congestion, bilateral pleural effusions, however based on ultrasound, the left-sided pleural effusion was not large enough to consider safe thoracentesis Progress note dated 06/29/2023. 73-year-old male seen in the intensive care unit, room 262. The patient is scheduled to have a pericardial window done today, June 29. Briefly, the patient was admitted to the hospital June 26, for CHF, acute mental status changes, and a pericardial effusion. The patient was admitted to the intensive care unit, on the day of admission. The patient's been between BiPAP, with settings of 12/6, and 75%, or AIRVO, at 60 L/m with an FiO2 of 80%. The patient is currently on norepinephrine at 2 mcg/m, dexmedetomidine at 0.3 mcg/kg/h, amiodarone at 0.5 mg/m, a Lasix drip at 10 mg an hour, and saline at KVO. White count is 13.7, hemoglobin 16, hematocrit 48.9, and a platelet count of 203,000. Sodium 143, potassium 4.1, chlorides 102, CO2 28, BUN 117, and creatinine 3.83. Pro-calcitonin level is 0.47, from yesterday. Chest x-ray shows cardiomegaly, with bibasilar effusions. Progress note dated 06/30/2023. 73-year-old male with a history of pericardial effusion. The patient had a bedside procedure done yesterday, to drain the pericardial effusion. About 1 L of fluid was removed. Currently, he's on AIRVO, at 60 L/m, with an FiO2 of 94%. He continues on Lasix drip at 10 mg an hour, norepinephrine at 7.1 mcg/m, amiodarone at 0.5 mg/m, and a Cardizem drip of 7.5 mg an hour. The patient spent some time on BiPAP as well. White count 15.1, hemoglobin 15, hematocrit 47.6, and platelet count 182,000. Sodium 147, potassium 3.3, chlorides 105, CO2 28, BUN 122, and creatinine 3.72. Glucose 193. Calcium is 9.0. Chest x-ray shows a pericardial drain. There is some volume loss of the left lower lobe, and small bilateral pleural effusions. Progress note dated 07/01/2023. 73-year-old male with history of pericardial effusion. The patient is postop day #2, status post pericardial window drainage catheter. He seen today in room 262. He continues on either AIRVO, at 50 L/m, with an FiO2 of 75%, or BiPAP, with settings of 12/6, and 85%. The patient continues on norepinephrine at 3.5 mcg/m, D5W at 50 mL an hour, and Cardizem drip at 7.5 mg an hour. The patient's pericardial catheter, was drained yesterday, and 235 mL of fluid was removed. White count 11.3, hemoglobin 14.3, hematocrit 44.7, and platelet count 136,000. Sodium 148, potassium 3.7, chlorides 107, CO2 27, BUN 129, and creatinine 3.82. Glucose 170. Calcium is 8.6. Chest x-ray shows cardiomegaly, and pulmonary vascular congestion, small bilateral effusions. Progress note dated 07/02/2023. 73-year-old male with history of pericardial effusion. The patient is postop day #3, status post pericardial window with drainage catheter. He seen today in room 262. Currently, he is on AIRVO, at 35 L/m with an FiO2 of 50%. The patient is getting D5W at 75 mL an hour. Over the last couple of days, the fluid removed from the pericardial space, has been very limited. White count is 10.9, hemoglobin 13.4, hematocrit 3.2, and platelet count 97,000. Sodium 147, potassium 3.6, chlorides 108, CO2 29, BUN 132, and creatinine 3.69. Glucose 2:1 5, calcium is 8.2. Chest x-ray shows cardiomegaly, and mild CHF with pulmonary vascular congestion. Progress note dated 07/03/2023. 73-year-old male with a history of pericardial effusion, postop day #4, status post pericardial window, which drainage catheter. The catheter has subsequently been removed. The patient is seen today in room 253. The patient is currently on AIRVO, with settings of 35 L/m, and an FiO2 of 60%. He's not receiving any IV fluids. Solu-Medrol will be discontinued. He apparently spent a few hours on BiPAP last night, with settings of 12/6, at the percent. The patient has been downgraded, and can be transferred out of the ICU. Laboratory data today includes a white count 12.2, hemoglobin 13.1, hematocrit 42, and platelet count 86,000. Sodium 143, potassium 3.7, chlorides 105, CO2 26, BUN 120, and creatinine 3.43. Calcium is 7.9. Culture data is pending or negative. Chest x-ray shows findings of CHF, and cardiomegaly. Small to moderate pleural effusi on, left greater than right. Progress note dated 07/04/2023. 73-year-old male, seen today in room 253. He is postop day #5, status post pericardial window, with insertion of a drainage catheter. Catheter has been removed. Currently, the patient is on BiPAP, with settings of 12/6, and 50%. Alternatively, the patient can be on AIRVO, at 35 L/m, with an FiO2 of 70%. Lasix has been added twice a day by nephrology. I believe that to be appropriate. The patient's not receiving any IV fluids. Labs today include sodium 141, potassium 3.8, chlorides 105, CO2 28, BUN 116, and creatinine 2.84. Calcium is 7.9. Progress note dated 07/05/2023. 73-year-old male seen today in room 253. He's postop day #6, status post pericardial window, insertion of a drainage catheter. Catheter has been re moved. The patient is currently on BiPAP, with settings of 12/6, and 50%. He's not on any IV fluids. We will check a pro-calcitonin level today. The patient could not tolerate AIRVO yesterday. Current labs include a white count 16.5, hemoglobin 16, hematocrit 52, and platelet count 98,000. Sodium 140, potassium 4, chlorides 101, CO2 27, BUN 118, and creatinine 2.87. Glucose 124. Chest x-ray shows mild fluid overload, and a potentially developing right lower lobe airspace infiltrate. Progress note dated 07/06/2023. 73-year-old male seen in 253. The patient continues in the intensive care unit. Today is postoperative day #7, status post pericardial window, and insertion of a pericardial drainage catheter. The patient's pericardial drainage catheter has subsequently been removed. This patient 1 day looks better, and the next day looks worse. Today he looks worse. He continues on BiPAP, his been pretty much BiPAP dependent, for the last couple days, with settings of 12/6, and 50%. He could not tolerate the AIRVO. In addition, because of worsening renal function, hemodialysis catheter will be placed, and the patient will undergo hemodialysis. His pro-calcitonin level was 0.41. He's currently on Zosyn. He seems much less alert today. White count 17.9, hemoglobin 15.2, hematocrit 51, and platelet count 100,000. Sodium 137, potassium 4.2, chlorides 100, CO2 23, a nion gap 14, BUN 127, creatinine 3.12. Chest x-ray reveals worsening infiltrate in the right lung, and bilateral pleural effusions. Also the upper lobe vessels are enlarged. On today's evaluation of 07/07/2023, the patient is being seen for a follow-up. The patient is known to have multiple medical problems and comorbidities. Is known to have COPD, CHF, chronic kidney disease And chronic hypoxic respiratory failure along with obstructive sleep apnea maintained on CPAP therapy on outpatient basis. He also suffers from chronic atrial fibrillation. The patient presented to us with an acute on top of chronic kidney failure, acute on top of chronic hypoxic and hypercapnic respiratory failure and he was found to have a large pericardial effusion. The patient underwent a pericardial window. He continued to be hypoxic throughout the hospitalization requiring high flow oxygen alternating with a BiPAP. He was back and forth to the intensive care unit. Currently is back in the ICU with hypoxic respiratory failure. He was unable to tolerate the high flow oxygen and currently is on BiPAP at a pressure of 12/6 with an FiO2 of 50%. Chest x-ray showing improvement in the previously described cardiomegaly. However, there is an extensive right lung consolidation consistent with pneumonia. Small pleural effusion on the left is also seen. The patient is currently undergoing hemodialysis. He underwent his first session of hemodialysis yesterday and the second session is being done this morning with a goal of ultrafiltration of 2.5 L. BUN is at 100 with a creatinine of 3.05 and a sodium level is at 135. The white cycles of 12.7 with a hemoglobin of 15.2. The patient is covered with IV Zosyn as a broad-spectrum antibiotic coverage. He is currently on norepinephrine running at 0.04 g pretty kilogram per minutes. Urine output is dropped and the patient is producing approximately 50 mL an hour. Overall fluid balance is +500 mL over the past 24 hours. Based on his underlying hypotension, he was given a bolus of 1000 mL of normal saline yesterday. I did with his echocardiogram and it showed a large pericardial effusion and this was obtained preoperatively. Never theless, the patient is a preserved LV function, he has severe aortic stenosis with a peak gradient of 76 and then medium gradient of 43 with mild regurgitation. His current cardiac rhythm is atrial fibrillation. Slightly tachycardic. Maintains on amiodarone 200 mg by mouth twice a day. He is also metoprolol 12.5 mg by mouth twice a day. No anticoagulants at this point in time. He is lethargic yet arousable. He is following simple commands. No massive edema in the lower extremities. He has a dialysis catheter in his right femoral vein. Objective - Vital Signs Vital signs: Vital Signs Temp 97.7 F 07/07/23 08:00 Pulse 107 H 07/07/23 09:00 Resp 25 H 07/07/23 09:00 BP 98/63 07/07/23 09:00 Pulse Ox 89 L 07/07/23 09:00 FiO2 50 07/07/23 08:00 Intake & Output 07/06/23 07/07/23 07/07/23 18:59 06:59 18:59 Intake Total 1100 1107.264 140.306 Output Total 1504 160 62 Balance -404 947.264 78.306 Intake: IV 200 1100 110 Piperacillin-Tazobactam 3 200 100 100 .375 gm In Sodium Chloride 0.9% 100 ml @ 25 mls/hr IVPB Q8HR [facility] Rx# :[id number] Sodium Chloride 0.9% 1, 1000 10 000 ml @ 999 mls/hr IV . Q1H1M [facility] Rx#:[id number] Intake, IV Titration 7.264 30.306 Amount Norepinephrine 4 mg In 7.264 30.306 Sodium Chloride 0.9% 250 ml @ 0.03 MCG/KG/MIN 14. 059 mls/hr IV .Q18H4M [facility] Rx#:[id number] Oral 500 Hemodialysis 400 Output: Urine 104 160 62 Hemodialysis 1400 Other: Voiding Method Indwelling Catheter Indwelling Catheter # Bowel Movements 1 ABP, PAP, CO, CI - Last Documented Arterial Blood Pressure 98/49 - Exam No acute distress, currently on BiPAP. Lethargic yet arousable. Currently on a BiPAP at a pressure of 12/6 with an FiO2 of 50% HEENT examination is grossly unremarkable. Neck supple. Full range of motion. No adenopathy thyromegaly or neck vein distention. Cardiovascular examination reveals regular rhythm rate. S1-S2 normal. No S3 or S4. There is a harsh systolic ejection murmur over the left sternal border and apex grade 4/6 Lungs reveal scattered rhonchi. Breath sounds equal bilaterally. Saturations are only 90%, on BiPAP, at 12/6, and 50%. Abdomen soft bowel sounds are heard. No masses or tenderness. Extremities are intact. No cyanosis clubbing or edema. Skin is without rash or lesion. Neurologic examination reveals the patient to be lethargic/somnolent. - Labs CBC & Chem 7: 07/07/23 07:52 07/07/23 04:11 Labs: Abnormal Lab Results - Last 24 Hours (Table) 07/06/23 07/06/23 07/07/23 Range/Units 11:35 19:57 04:11 WBC (3.8-10.6) k/uL MCV (80.0-100.0) fL Plt Count (150-450) k/uL Sodium 135 L (137-145) mmol/L Potassium 5.3 H (3.5-5.1) mmol/L Carbon Dioxide 19 L (22-30) mmol/L BUN 100 H (9-20) mg/dL Creatinine 3.05 H (0.66-1.25) mg/dL POC Glucose (mg/dL) 156 H 117 H (70-110) mg/dL Calcium 7.5 L (8.4-10.2) mg/dL 07/07/23 Range/Units 07:52 WBC 12.7 H (3.8-10.6) k/uL MCV 104.9 H (80.0-100.0) fL Plt Count 98 L (150-450) k/uL Sodium (137-145) mmol/L Potassium (3.5-5.1) mmol/L Carbon Dioxide (22-30) mmol/L BUN (9-20) mg/dL Creatinine (0.66-1.25) mg/dL POC Glucose (mg/dL) (70-110) mg/dL Calcium (8.4-10.2) mg/dL Assessment and Plan Plan: Acute on chronic hypoxemic and hypercapnic respiratory failure. Respiratory failure is multifactorial. Initially the patient a large pericardial effusion probably related to chronic kidney disease. The patient underwent pericardial window. Currently he has significant consolidation of the right lung highly suspicious for a pneumonia. Note that this pulmonary infiltration developed during his current hospital stay. Initial chest exit time of admission showed no significant pneumonias. At the same time, he has small bilateral pleural effusions. Pericardial effusion, S/P pericardial window, 06/29/2023, POD # 8, cultures are negative, cytology from the pericardial fluid was also negative or any malignancy. Hospital-acquired right lung pneumonia and the patient is currently on IV Zosyn Chronic Diastolic CHF. Acute on chronic kidney disease. Metabolic encephalopathy. Morbid obesity. Chronic atrial fibrillation, with paroxysmal atrial fibrillation/RVR. Rate is under better control with a combination of amiodarone and metoprolol. Patient is on no antivirals for now Moderately severe aortic stenosis. Hypotension, pressor dependent and the patient is requiring titration of the norepinephrine while being on hemodialysis. Obstructive sleep apnea syndrome. History of alcoholism. Hyperlipidemia. Plan Continue BiPAP therapy for now at the same pressures May be able to transition him back to high flow oxygen at the later stage if is able to complete his dialysis successfully Complete hemodialysis with a goal of 2.5 L of ultrafiltration Continue IV Zosyn Daily chest x-rays No need for anticoagulants for now Monitor mental status Obtain a blood gas May need a set of blood cultures 2 Monitor electrolytes Full CODE STATUS and will continue to follow make further recommendations based on his progress Condition is critical, evaluation was done > 30min Time with Patient: Greater than 30
--- NOTE | 2023-07-07 11:09 | P.PN ---
Subjective Patient is seen for follow-up for acute kidney injury. Patient was started on hemodialysis on 07/06/2023 due to worsening renal function and respiratory status with volume overload. Urine output remains low Status post UF of 1.4 L with hemodialysis yesterday. Currently awake Clayton mejia seen on hemodialysis Maintained on BiPAP Objective - Vital Signs Vital signs: Vital Signs Temp 97.7 F 07/07/23 08:00 Pulse 101 H 07/07/23 10:00 Resp 22 07/07/23 10:00 BP 86/60 07/07/23 10:00 Pulse Ox 89 L 07/07/23 10:00 FiO2 50 07/07/23 08:00 Intake & Output 07/06/23 07/07/23 07/07/23 18:59 06:59 18:59 Intake Total 1100 1107.264 140.306 Output Total 1504 160 62 Balance -404 947.264 78.306 Weight 123 kg Intake: IV 200 1100 110 Piperacillin-Tazobactam 3 200 100 100 .375 gm In Sodium Chloride 0.9% 100 ml @ 25 mls/hr IVPB Q8HR [facility] Rx# :[id number] Sodium Chloride 0.9% 1, 1000 10 000 ml @ 999 mls/hr IV . Q1H1M [facility] Rx#:[id number] Intake, IV Titration 7.264 30.306 Amount Norepinephrine 4 mg In 7.264 30.306 Sodium Chloride 0.9% 250 ml @ 0.03 MCG/KG/MIN 14. 059 mls/hr IV .Q18H4M [facility] Rx#:[id number] Oral 500 Hemodialysis 400 Output: Urine 104 160 62 Hemodialysis 1400 Other: Voiding Method Indwelling Catheter Indwelling Catheter # Bowel Movements 1 ABP, PAP, CO, CI - Last Documented Arterial Blood Pressure 98/49 - Exam Patient is currently on BiPAP He is awake. Short of breath. Remains confused on and off Examination of the heart S1 and S2 Examination of the lungs bilateral breath sounds are heard Abdomen is soft nontender, obese Examination of lower extremity shows trace edema - Labs CBC & Chem 7: 07/07/23 07:52 07/07/23 04:11 Labs: Abnormal Lab Results - Last 24 Hours (Table) 07/06/23 07/06/23 07/07/23 Range/Units 11:35 19:57 04:11 WBC (3.8-10.6) k/uL MCV (80.0-100.0) fL Plt Count (150-450) k/uL Sodium 135 L (137-145) mmol/L Potassium 5.3 H (3.5-5.1) mmol/L Carbon Dioxide 19 L (22-30) mmol/L BUN 100 H (9-20) mg/dL Creatinine 3.05 H (0.66-1.25) mg/dL POC Glucose (mg/dL) 156 H 117 H (70-110) mg/dL Calcium 7.5 L (8.4-10.2) mg/dL 07/07/23 Range/Units 07:52 WBC 12.7 H (3.8-10.6) k/uL MCV 104.9 H (80.0-100.0) fL Plt Count 98 L (150-450) k/uL Sodium (137-145) mmol/L Potassium (3.5-5.1) mmol/L Carbon Dioxide (22-30) mmol/L BUN (9-20) mg/dL Creatinine (0.66-1.25) mg/dL POC Glucose (mg/dL) (70-110) mg/dL Calcium (8.4-10.2) mg/dL Assessment and Plan Assessment: 1. Acute kidney injury, ATN currently nonoliguric. Component of cardiorenal syndrome as well. Indwelling Gordon catheter present. Renal function had improved however worse again with oliguria. Started hemodialysis 07/06/2023 2. Hyperkalemia associated with acute kidney injury. No evidence of obstruction on ultrasound. 3. Acute hypercapnic respiratory failure, switched from BiPAP to airVO and today on nasal cannula. 4. Chronic kidney disease NKF stage IV with baseline creatinine around 2 mg/dL etiology is likely nephrosclerosis. Previous UA showed negative to trace protein. UA this admission shows 2+ protein. This will be monitored and workup will be performed down the road. 5. Hypercalcemia associated with primary hyperparathyroidism, started on Sensipar last admission. Currently on hold as calcium is low now. Patient was supposed to have nuclear scan of the parathyroid gland performed as outpatient. 6. Moderate pulmonary hypertension 7. Morbid obesity 8. A. fib with RVR currently maintained on amiodarone drip. 9. Large pericardial effusion status post pericardiocentesis of 1 L and then about 200 mL the next day. 10. Hypernatremia associated with free water deficit, resolved Plan: hemodialysis today and repeat in a.m. with goal UF of about 1-2 L as tolerated.
[2023-07-07] MEDS: AMIODARONE 200 MG TAB PO SCH ×2 (11:21→20:51)
[2023-07-07] MEDS: SENNOSIDES 8.6 MG TAB PO SCH (11:21)
[2023-07-07] MEDS: FOLIC ACID 1 MG TAB PO SCH (11:21)
[2023-07-07 11:28] LABS: Glucose,Whole Blood 95 mg/dL (70-110)
[2023-07-07 16:42] LABS: Glucose,Whole Blood 86 mg/dL (70-110)
--- NOTE | 2023-07-07 18:17 | P.PN ---
Subjective This is a pleasant 73 years old male with multiple medical problems including Atrial Fibrillation, Heart Failure, COPD, GI Bleed, Hyperlipidemia, Hypertension, chronic kidney disease/CPAP/BIPAP,Hiatal hernia, cateracts, d iverticulosis, CPAP use, Falls, Patient presents because transferred from [facility] for respiratory failure, on arrival he was hypotensive. He was recently in the hospital 06/17-06/19 for hypercalcemia and he was discharged on Sensipar which is thought secondary to hyperparathyroidism. Patient currently lives in the ICU using the BiPAP machine which limits history taken and provide information on the top of that patient is confused but he follows commands appropriately. He can answer some questions like he says he has no pain. He is asking if he can smoke now we explained for him he cannot declines the nicotine patch. Patient currently mildly tachycardic around 108, blood pressure is better 101/81 while he is on pressors. He is on BiPAP machine and he had a temperature of 98. 6. showing creatinine of 5.2 with baseline 2.2-2.9, calcium slightly elevated at 11.5. WBC is 15.7 while on steroids, while rest of CBC is unremarkable TSH is elevated at 4.7 but free T4 is normal at 0[place] [address] Ultrasound showing on obstructive uropathy but there is acute cholecystitis with thickened wall. Chest x-ray is suspicious for cardiomegaly and pulmonary edema EKG showing A. fib with rate of 82 b per minute. Patient currently in the ICU on amiodarone drip, Lasix drip at 10 mg per hour , levophed at 0.03 and Solu-Medrol 60 mg, Precedex and IV thiamine 06/28/2023 patient cannot get off the BiPAP overnight and early this morning, he desaturates easily. He remains on amiodarone drip, Lasix drip at 10 mg per hour, and a small dose of levophed at 0.03 and Precedex and thiamine. Distal, not tolerate oral medication and his Eliquis switch to Lovenox 120 mg once daily because of his high creatinine This pH 7.3, pCO2 50 and PaO2 of 76, which is a slightly better than yesterday. Creatinine coming down to 4.4. Ca is also coming down 10.1. WBC still elevated at 13.9 but also patient on steroids. General surgery R following for acute cholecystitis, HIDA scan is ordered, currently on Flagyl and Rocephin 06/29/2023 Patient evaluated today in the ICU. Has been transitioned to airvo. HIDA scan has been placed on hold today as there is findings of large pericardial effusion and cardiothoracic has been consulted. Echocardiogram shows normal LV function, with severe aortic stenosis, mild to moderate TR, mild MR, mild pulmonary hypertension, large pericardial effusion with no clear tamponade. He also had chest xray showing cardiomegaly with mild bibasilar effusions. Mild at the right base. Correlate for CHF. Small amount of atelectasis at the right base. Patient will be going for a pericardial window today. He continues on amiodarone gtt, continues on IV Lasix at 10 mg per hour, he is also on precedex and levophed. Patient is anticoagulated with lovenox. He is on IV ceftriaxone and IV flagyl. White blood cell count today is 13.7, BUN 117, creatinine 3.83. Procalcitonin 0.47. He is afebrile, heart rate in the 110s. Blood pressure marginal 84/57. 06/30/2023 Patient evaluated in the ICU. Status post pericardial window. No plans for HIDA scan of yet. He is more awake and alert today and responding to questions appropriately. He feels his leg swelling is much improved. He remains on airvo high flow oxygen support at 60L 93% FiO2. Saturations around 93%. He remains in and out of a.fib with RVR he has been taken off the amio gtt and placed on IV cardizem. Plans to transition off the lasix gtt today. He is on IV ceftriaxone, IV flagyl, IV solumedrol. He remains on a small dose of levo. Chest xray today showing moderate cardiomegaly with underlying pulmonary vascular congestion, small left greater than right pleural effusions with adjacent atelectasis and or consolidation. Some partially improving aeration of the left base compared to prior exam. Limited echocardiogram today showing small pericardial effusion. 07/01/2023 Patient remains in the ICU, his sitting in chair on nerve or with a flow rate of 60 L/m some saturation of FiO2 of 93%. He denies chest pain, mildly tachypneic. He is obese with mild fluid overload. His blood pressure is 107/58, heart rate 101, A. fib while he is on amiodarone and Cardizem drip Also is a small dose of pressors with Levophed at 0.03. Sodium is elevated at 149 and currently he is on D5W at 50 mL per hour. He does not show signs symptoms of alcohol withdrawal, he is on broad-spectrum antibiotics of Rocephin and Flagyl started by surgery team for suspected gallbladder disease. Currently he denies any abdominal pain. Remains on IV Solu-Medrol 60 mg as well. Creatinine improving down to 4. Cholecystectomy. 3. WBC 11.3. Cardiothoracic surgery followed closely and he is status post pericardial window and drainage of pericardial effusion of 1 L and today more than 200 mL. 07/02/2023 Patient in the ICU, sitting up in chair this morning, he looks more awake comfortable and relaxed however he still in mild respiratory distress and mild tachypnea. His oxygen requirement is less today and his currently on 7 L at high flow nasal cannula. Blood pressure 111/59, slightly tachypneic about 20-24 and he is afebrile. Creatinine improvement 3.6 sodium improving 147, still have mild leukocytosis but also is on steroids. Chest x-ray today I reviewed by myself showing better variation on the right lower zone but increased pleural effusion on the left side with possible adjacent atelectasis. Distal on Solu-Medrol 60 mg, broad-spectrum antibiotics by surgery team for Rocephin and oral Flagyl suspected for acute cholecystitis, patient currently he denies any right upper quadrant abdominal pain or tenderness. Remains on D5W at 75 mL/h. His metoprolol, torsemide on Eliquis remaining on hold currently. Resume the care of the patient 07/07/2023 Patient conditions worsened over the last 2-3 days, Currently he is on BiPAP lethargic and encephalopathic Is mildly tachypneic Chest x-ray showing right-sided pneumonia and pleural effusion Currently covered with Zosyn Started on low-dose pressors with Levophed today. Objective - Vital Signs Vital signs: Vital Signs Temp 97.9 F 07/07/23 16:00 Pulse 110 H 07/07/23 16:15 Resp 26 H 07/07/23 16:15 BP 103/81 07/07/23 16:15 Pulse Ox 94 L 07/07/23 16:15 FiO2 80 07/07/23 13:08 Intake & Output 07/06/23 07/07/23 07/07/23 18:59 06:59 18:59 Intake Total 1100 1107.264 810.215 Output Total 1242 138 5651 Balance -404 947.264 -1802.785 Weight 123 kg Intake: IV 200 1100 230 Piperacillin-Tazobactam 3 200 100 200 .375 gm In Sodium Chloride 0.9% 100 ml @ 25 mls/hr IVPB Q8HR [facility] Rx# :[id number] Sodium Chloride 0.9% 1, 1000 30 000 ml @ 999 mls/hr IV . Q1H1M [facility] Rx#:[id number] Intake, IV Titration 7.264 80.215 Amount Norepinephrine 4 mg In 7.264 80.215 Sodium Chloride 0.9% 250 ml @ 0.03 MCG/KG/MIN 14. 059 mls/hr IV .Q18H4M [facility] Rx#:[id number] Oral 500 Hemodialysis 400 500 Output: Urine 104 160 113 Hemodialysis 1400 2500 Other: Voiding Method Indwelling Catheter Indwelling Catheter Indwelling Catheter # Bowel Movements 1 ABP, PAP, CO, CI - Last Documented Arterial Blood Pressure 98/49 - Exam --GENERAL: The patient is awake , lethargic on BiPAP HEENT: Pupils are round and equally reacting to light. EOMI. No scleral icterus. No conjunctival pallor. Normocephalic, atraumatic. No pharyngeal erythema. No thyromegaly. CARDIOVASCULAR: S1 and S2 present. No murmurs, rubs, or gallops. -PULMONARY: Chest is limited air entry on both sides, slightly better than yesterday, no wheezing , no crackles. Mildly tachypneic while he is on BiPAP ABDOMEN: Soft, nontender, nondistended, normoactive bowel sounds. No palpable organomegaly. MUSCULOSKELETAL: No joint swelling or deformity. EXTREMITIES: No cyanosis, clubbing, or pedal edema. NEUROLOGICAL: Gross neurological examination did not reveal any focal deficits. SKIN: No rashes. no petechiae. - Labs CBC & Chem 7: 07/07/23 07:52 07/07/23 04:11 Labs: Abnormal Lab Results - Last 24 Hours (Table) 07/06/23 07/07/23 07/07/23 Range/Units 19:57 04:11 07:52 WBC 12.7 H (3.8-10.6) k/uL MCV 104.9 H (80.0-100.0) fL Plt Count 98 L (150-450) k/uL Sodium 135 L (137-145) mmol/L Potassium 5.3 H (3.5-5.1) mmol/L Carbon Dioxide 19 L (22-30) mmol/L BUN 100 H (9-20) mg/dL Creatinine 3.05 H (0.66-1.25) mg/dL POC Glucose (mg/dL) 117 H (70-110) mg/dL Calcium 7.5 L (8.4-10.2) mg/dL Assessment and Plan Assessment: Right lower lobe pneumonia Acute hypoxic respiratory failure requiring BiPAP COPD with exacerbation, resolved Acute on chronic diastolic CHF with a preserved ejection fraction Possible acute cholecystitis, versus intra-abdominal infection on broad-spectrum antibiotic Pericardial effusion status post pericardial window for drainage A. fib and RVR Acute kidney injury on chronic kidney disease stage IV Moderate to severe aortic stenosis Hypercalcemia secondary to hyperparathyroidism on treatment Alcohol use disorder Nicotine dependence Chronic hypoxic respiratory failure Morbid obesity with BMI 41.7. Plan: Continue with Zosyn Continue with pressors Pulmonary team on the case General surgery R following for acute cholecystitis, Antibiotic started with Rocephin and Flagyl Several consultants of the case with the pulmonary/critical care team, nephrology, neurology. Cardiothoracic surgery team Labs and medication were reviewed.. Continue same treatment. Continue with symptomatic treatment. Resume home medication. Monitor labs and vitals. DVT and GI prophylaxis. Further recommendations as per clinical course of the patient DVT prophylaxis: on eliquis GI Prophylaxis: Pepcid PT/OT: differed Prognosis is guarded
[2023-07-07] MEDS: MONTELUKAST 10 MG TAB PO SCH (20:51)
[2023-07-07] MEDS: ATORVASTATIN 80 MG TAB PO SCH (20:51)
[2023-07-07 21:41] LABS: Glucose,Whole Blood 102 mg/dL (70-110)
[2023-07-08] MEDS: PIPERACILLIN-TAZOBACTAM 3.375 GM in SODIUM CHLORIDE 0.9% 100 ML IVPB SCH ×4 (01:36→23:15)
[2023-07-08] MEDS: ALBUTEROL NEBULIZED 2.5 MG/3 ML INHALATION PRN (03:48)
[2023-07-08 04:35] LABS: HCT 42.4 % (39.0-53.0); HGB 13.6 gm/dL (13.0-17.5); Hypochromasia Slight; MCH 32.7 pg (25.0-35.0); MCHC 31.9 g/dL (31.0-37.0); MCV 102.4 fL (80.0-100.0); Macrocytosis Slight; Platelet Count 91 k/uL (150-450); RBC 4.15 m/uL (4.30-5.90); WBC 12.7 k/uL (3.8-10.6)
[2023-07-08 04:42] LABS: ALT 17 U/L (4-49); African American GFR (CKD) 23 (>60 ml/min/1.73 sqM); Albumin 2.7 g/dL (3.5-5.0); Anion Gap 14 mmol/L; Blood Urea Nitrogen 80 mg/dL (9-20); Calcium 7.7 mg/dL (8.4-10.2); Carbon Dioxide 21 mmol/L (22-30); Chloride 99 mmol/L (98-107); Glucose 90 mg/dL (74-99); Non-African American GFR(CKD) 20 (>60 ml/min/1.73 sqM); Sodium 134 mmol/L (137-145); Total Protein 5.3 g/dL (6.3-8.2)
[2023-07-08 04:47] LABS: AST 29 U/L (17-59); Alkaline Phosphatase 90 U/L (38-126); Potassium 4.3 mmol/L (3.5-5.1)
[2023-07-08] MEDS: NOREPINEPHRINE 4 MG in SODIUM CHLORIDE 0.9% 250 ML IV SCH ×2 (05:05→18:29)
[2023-07-08] MEDS: INSULIN ASPART (NovoLOG) 100 UNIT/ML VIAL SQ SCH ×4 (06:59→19:56)
[2023-07-08] MEDS: MIDODRINE 5 MG TAB PO SCH ×3 (07:09→17:30)
[2023-07-08] MEDS: IPRATROPIUM-ALBUTEROL 3 ML NEB INHALATION SCH ×4 (08:07→20:22)
--- NOTE | 2023-07-08 08:14 | XR ---
EXAMINATION TYPE: XR chest 1V portable DATE OF EXAM: 07/08/2023 4:06 AM CLINICAL INDICATION:Male, 73 years old with history of bipap requirement; [facility] COMPARISON: Chest radiograph from one day prior. TECHNIQUE: XR chest 1V portable Frontal view of the chest. FINDINGS: FINDINGS: Lungs/Pleura: New left lower lung airspace opacities. Multifocal right-sided airspace opacities with associated pleural effusion. There is no evidence of pleural effusion, focal consolidation, or pneumo thorax. Pulmonary vascularity: Unremarkable. Heart/mediastinum: Cardiomediastinal silhouette is unremarkable. Musculoskeletal: No acute osseous pathology. IMPRESSION: New left lower lung and stable right lung airspace opacities. Correlate for aspiration co rrelate for infection consider aspiration
[2023-07-08] MEDS ORDERED: VANCOMYCIN IV PER PHARMACY 1 EACH MISC MISCELLANE PRN (09:01)
--- NOTE | 2023-07-08 09:02 | P.PN ---
Subjective Progress Note Date: 07/08/23 Acute on chronic hypoxic and hypercapnic respiratory failure This is a 73-year-old white male with history of multiple medical problems including chronic congestive heart failure, COPD, chronic kidney disease, chronic hypoxic respiratory failure, obstructive sleep apnea syndrome, maintained on CPAP now patient was transferred from [facility] with 2 days history of increased shortness of breath. I have seen this patient in the past and his last evaluation in the hospital was on 02/16/2023. At that time the patient presented with acute on chronic hypoxic and hypercapnic respiratory failure with congestive heart failure and COPD. He should also had moderate severe aortic stenosis, and morbid obesity as well as chronic atrial fibrillation. Back then the patient was treated mostly aggressively with diuretics, and he was eventually discharged home after almost a week stay in the ICU. This time the patient has a very similar presentation, I saw the patient in the ER, and his is at bedside. Patient is now on BiPAP which I have adjusted to IPAP of 16 and EPAP 6, and he is also on 100% FiO2. ABG is pending, earlier venous ABG showed a pCO2 of 120 and pH of 7.01. After I evaluated the patient, I recommended immediate transfer to the ICU ABG, ultrasound of the chest, I cut down his IV fluid to KVO, started the patient on Lasix drip at 10 mg per hour. And explained to the that the patient may require intubation mechanical ventilation if his condition does not improve much and a short period of time. For low blood pressure may consider using norepinephrine, would definitely avoid using fluids at this point. Labs were reviewed chest x-ray was reviewed his BUN is 99 creatinine is 5.25, and his creatinine only a few days ago was 2.07. Apparently he is developing a worsening picture of chronic kidney disease. Could be cardiorenal. BNP level is 14,900 Reevaluated today on 06/27/2023, patient remains in the ICU, remains on Lasix drip at 10 mg per hour, amiodarone 0.5 mg/m for atrial fibrillation/RVR which she developed last night patient does have chronic history of atrial fibrillation remains on norepinephrine at 0.04 mcg/kg/m, he is on Precedex at 0.2 mcg/kg/hr, IV fluid at 20 mL per hour in the form of 0.9 normal saline. Blood pressure is noted to be borderline. Hence patient had a left subclavian triple-lumen catheter placed and a left radial arterial line placement. Repeat ABG this morning continues to show significant metabolic and respiratory acidosis pO2 of 79 pCO2 62 pH of 7.21, potassium is up to 5.19, patient was given 1 amp of bicarb for his acidosis. His BUN is 107 creatinine 5.17, slightly better compared to yesterday, patient is being evaluated by nephrology. Remains on BiPAP at 16/6/75% FiO2. And overall his clinical status is critically ill/marginal. Patient is definitely high risk for intubation mechanical ventilation, the patient and his are both aware of this, however at this point I will hold on mechanically ventilated the patient. We'll continue BiPAP, continue Lasix drip, and continue pressors patient may eventually require hemodialysis. Ultrasound of the chest showed small bilateral pleural effusions left more so than right, the left sided pocket is not large enough to consider safe left sided thoracentesis. Patient was reevaluated today on 06/2023, remains in the ICU, remains on Lasix drip at 10 mg per hour, remains on BiPAP at 12/6/75%. Patient is still requiring Precedex at 0.6 mcg/kg/h, norepinephrine at 0.03 mcg/kg/m. Patient is negative balance over the last 24 hours about 2 L. And he is steadily improving but remains critically ill, and simply requiring pressors. ABG showed a pO2 of 76 pCO2 of 50 pH of 7.34, significantly improved compared to his initial ABG on admission where his pCO2 was in the 120 range. Patient remains on Rocephin and Flagyl, his CT of the abdomen raised the possibility of acute cholecystitis, but clinically I do not see any evidence of cholecystitis, the patient has no pain or tenderness in the right upper quadrant. Being considered for a HIDA scan. CT of the brain came back negative for acute process. WBC count today is 13.9 hemoglobin 15.4. Platelets are 226, basic metabolic profile is normal BUN is 111 creatinine is down to 4.44 improving in spite of aggressive diuresis on this patient. If her enzymes are basically normal. Chest x-ray this morning showed cardiomegaly, pulmonary vascular congestion, bilateral pleural effusions, however based on ultrasound, the left-sided pleural effusion was not large enough to consider safe thoracentesis Progress note dated 06/29/2023. 73-year-old male seen in the intensive care unit, room 262. The patient is scheduled to have a pericardial window done today, June 29. Briefly, the patient was admitted to the hospital June 26, for CHF, acute mental status changes, and a pericardial effusion. The patient was admitted to the intensive care unit, on the day of admission. The patient's been between BiPAP, with settings of 12/6, and 75%, or AIRVO, at 60 L/m with an FiO2 of 80%. The patient is currently on norepinephrine at 2 mcg/m, dexmedetomidine at 0.3 mcg/kg/h, amiodarone at 0.5 mg/m, a Lasix drip at 10 mg an hour, and saline at KVO. White count is 13.7, hemoglobin 16, hematocrit 48.9, and a platelet count of 203,000. Sodium 143, potassium 4.1, chlorides 102, CO2 28, BUN 117, and creatinine 3.83. Pro-calcitonin level is 0.47, from yesterday. Chest x-ray shows cardiomegaly, with bibasilar effusions. Progress note dated 06/30/2023. 73-year-old male with a history of pericardial effusion. The patient had a bedside procedure done yesterday, to drain the pericardial effusion. About 1 L of fluid was removed. Currently, he's on AIRVO, at 60 L/m, with an FiO2 of 94%. He continues on Lasix drip at 10 mg an hour, norepinephrine at 7.1 mcg/m, amiodarone at 0.5 mg/m, and a Cardizem drip of 7.5 mg an hour. The patient spent some time on BiPAP as well. White count 15.1, hemoglobin 15, hematocrit 47.6, and platelet count 182,000. Sodium 147, potassium 3.3, chlorides 105, CO2 28, BUN 122, and creatinine 3.72. Glucose 193. Calcium is 9.0. Chest x-ray shows a pericardial drain. There is some volume loss of the left lower lobe, and small bilateral pleural effusions. Progress note dated 07/01/2023. 73-year-old male with history of pericardial effusion. The patient is postop day #2, status post pericardial window drainage catheter. He seen today in room 262. He continues on either AIRVO, at 50 L/m, with an FiO2 of 75%, or BiPAP, with settings of 12/6, and 85%. The patient continues on norepinephrine at 3.5 mcg/m, D5W at 50 mL an hour, and Cardizem drip at 7.5 mg an hour. The patient's pericardial catheter, was drained yesterday, and 235 mL of fluid was removed. White count 11.3, hemoglobin 14.3, hematocrit 44.7, and platelet count 136,000. Sodium 148, potassium 3.7, chlorides 107, CO2 27, BUN 129, and creatinine 3.82. Glucose 170. Calcium is 8.6. Chest x-ray shows cardiomegaly, and pulmonary vascular congestion, small bilateral effusions. Progress note dated 07/02/2023. 73-year-old male with history of pericardial effusion. The patient is postop day #3, status post pericardial window with drainage catheter. He seen today in room 262. Currently, he is on AIRVO, at 35 L/m with an FiO2 of 50%. The patient is getting D5W at 75 mL an hour. Over the last couple of days, the fluid removed from the pericardial space, has been very limited. White count is 10.9, hemoglobin 13.4, hematocrit 3.2, and platelet count 97,000. Sodium 147, potassium 3.6, chlorides 108, CO2 29, BUN 132, and creatinine 3.69. Glucose 2:1 5, calcium is 8.2. Chest x-ray shows cardiomegaly, and mild CHF with pulmonary vascular congestion. Progress note dated 07/03/2023. 73-year-old male with a history of pericardial effusion, postop day #4, status post pericardial window, which drainage catheter. The catheter has subsequently been removed. The patient is seen today in room 253. The patient is currently on AIRVO, with settings of 35 L/m, and an FiO2 of 60%. He's not receiving any IV fluids. Solu-Medrol will be discontinued. He apparently spent a few hours on BiPAP last night, with settings of 12/6, at the percent. The patient has been downgraded, and can be transferred out of the ICU. Laboratory data today includes a white count 12.2, hemoglobin 13.1, hematocrit 42, and platelet count 86,000. Sodium 143, potassium 3.7, chlorides 105, CO2 26, BUN 120, and creatinine 3.43. Calcium is 7.9. Culture data is pending or negative. Chest x-ray shows findings of CHF, and cardiomegaly. Small to moderate pleural effusi on, left greater than right. Progress note dated 07/04/2023. 73-year-old male, seen today in room 253. He is postop day #5, status post pericardial window, with insertion of a drainage catheter. Catheter has been removed. Currently, the patient is on BiPAP, with settings of 12/6, and 50%. Alternatively, the patient can be on AIRVO, at 35 L/m, with an FiO2 of 70%. Lasix has been added twice a day by nephrology. I believe that to be appropriate. The patient's not receiving any IV fluids. Labs today include sodium 141, potassium 3.8, chlorides 105, CO2 28, BUN 116, and creatinine 2.84. Calcium is 7.9. Progress note dated 07/05/2023. 73-year-old male seen today in room 253. He's postop day #6, status post pericardial window, insertion of a drainage catheter. Catheter has been re moved. The patient is currently on BiPAP, with settings of 12/6, and 50%. He's not on any IV fluids. We will check a pro-calcitonin level today. The patient could not tolerate AIRVO yesterday. Current labs include a white count 16.5, hemoglobin 16, hematocrit 52, and platelet count 98,000. Sodium 140, potassium 4, chlorides 101, CO2 27, BUN 118, and creatinine 2.87. Glucose 124. Chest x-ray shows mild fluid overload, and a potentially developing right lower lobe airspace infiltrate. Progress note dated 07/06/2023. 73-year-old male seen in 253. The patient continues in the intensive care unit. Today is postoperative day #7, status post pericardial window, and insertion of a pericardial drainage catheter. The patient's pericardial drainage catheter has subsequently been removed. This patient 1 day looks better, and the next day looks worse. Today he looks worse. He continues on BiPAP, his been pretty much BiPAP dependent, for the last couple days, with settings of 12/6, and 50%. He could not tolerate the AIRVO. In addition, because of worsening renal function, hemodialysis catheter will be placed, and the patient will undergo hemodialysis. His pro-calcitonin level was 0.41. He's currently on Zosyn. He seems much less alert today. White count 17.9, hemoglobin 15.2, hematocrit 51, and platelet count 100,000. Sodium 137, potassium 4.2, chlorides 100, CO2 23, a nion gap 14, BUN 127, creatinine 3.12. Chest x-ray reveals worsening infiltrate in the right lung, and bilateral pleural effusions. Also the upper lobe vessels are enlarged. On today's evaluation of 07/07/2023, the patient is being seen for a follow-up. The patient is known to have multiple medical problems and comorbidities. Is known to have COPD, CHF, chronic kidney disease And chronic hypoxic respiratory failure along with obstructive sleep apnea maintained on CPAP therapy on outpatient basis. He also suffers from chronic atrial fibrillation. The patient presented to us with an acute on top of chronic kidney failure, acute on top of chronic hypoxic and hypercapnic respiratory failure and he was found to have a large pericardial effusion. The patient underwent a pericardial window. He continued to be hypoxic throughout the hospitalization requiring high flow oxygen alternating with a BiPAP. He was back and forth to the intensive care unit. Currently is back in the ICU with hypoxic respiratory failure. He was unable to tolerate the high flow oxygen and currently is on BiPAP at a pressure of 12/6 with an FiO2 of 50%. Chest x-ray showing improvement in the previously described cardiomegaly. However, there is an extensive right lung consolidation consistent with pneumonia. Small pleural effusion on the left is also seen. The patient is currently undergoing hemodialysis. He underwent his first session of hemodialysis yesterday and the second session is being done this morning with a goal of ultrafiltration of 2.5 L. BUN is at 100 with a creatinine of 3.05 and a sodium level is at 135. The white cycles of 12.7 with a hemoglobin of 15.2. The patient is covered with IV Zosyn as a broad-spectrum antibiotic coverage. He is currently on norepinephrine running at 0.04 g pretty kilogram per minutes. Urine output is dropped and the patient is producing approximately 50 mL an hour. Overall fluid balance is +500 mL over the past 24 hours. Based on his underlying hypotension, he was given a bolus of 1000 mL of normal saline yesterday. I did with his echocardiogram and it showed a large pericardial effusion and this was obtained preoperatively. Never theless, the patient is a preserved LV function, he has severe aortic stenosis with a peak gradient of 76 and then medium gradient of 43 with mild regurgitation. His current cardiac rhythm is atrial fibrillation. Slightly tachycardic. Maintains on amiodarone 200 mg by mouth twice a day. He is also metoprolol 12.5 mg by mouth twice a day. No anticoagulants at this point in time. He is lethargic yet arousable. He is following simple commands. No massive edema in the lower extremities. He has a dialysis catheter in his right femoral vein. 07/08 2023, the patient is being seen in follow-up. The patient is critically ill with hypoxic respiratory failure secondary to bilateral pneumonia more extensive on the right. A repeat chest x-ray was done today and shows persistent consolidation of the right right lung more so on the right lower lobe. The patient is currently on a BiPAP at a pressure of 12 are 6 with an FiO2 of 50%. He was transitioned to high flow oxygen at 50 L yesterday and utilizes for several hours and overnight he went back on BiPAP at the current setting. Current pulse ox is at 91-92%. In terms of antibiotic coverage, the patient's is still on IV Zosyn. He is afebrile. Hemodynamically, the patient remains on norepinephrine which is running at 0.04 mcg/kg/m. Cardiac rhythm is atrial fibrillation. No cultures are available for the time being. The white cycles of 12.7 which is comparable to yesterday with a hemoglobin of 15.6 and a platelet count of 91. BUN is at 80 with a creatinine of 2.9 and sodium levels of 134 with a potassium level of 4.3. The patient is undergoing another session of hemodialysis this morning. The goal is also infiltrate in for a total of 1-2 L. Yesterday, he was INFILTRATED for a total of 2 L. Note that the patient has also severe aortic stenosis with a preserved LV function. No significant edema lower extremities. No agitation. No confusion. No altered mentation. He is an atrial fibrillation. Rate is controlled. No anticoagulants for now. No signs of any focal neurological deficit at this point in time. Objective - Vital Signs Vital signs: Vital Signs Temp 98 F 07/08/23 04:00 Pulse 105 H 07/08/23 08:17 Resp 15 07/08/23 07:30 BP 109/77 07/08/23 07:30 Pulse Ox 96 07/08/23 07:15 FiO2 50 07/08/23 07:44 Intake & Output 07/07/23 07/08/23 07/08/23 18:59 06:59 18:59 Intake Total 1352.471 174.265 Output Total 2633 301 Balance -1280.529 -126.735 Weight 123 kg Intake: IV 230 50 Piperacillin-Tazobactam 3 200 5 .375 gm In Sodium Chloride 0.9% 100 ml @ 25 mls/hr IVPB Q8HR [facility] Rx# :[id number] Sodium Chloride 0.9% 1, 30 000 ml @ 999 mls/hr IV . Q1H1M [facility] Rx#:[id number] kvo 45 Intake, IV Titration 122.471 124.265 Amount Norepinephrine 4 mg In 122.471 124.265 Sodium Chloride 0.9% 250 ml @ 0.03 MCG/KG/MIN 14. 059 mls/hr IV .Q18H4M [facility] Rx#:[id number] Oral 500 Hemodialysis 500 Output: Urine 133 301 Hemodialysis 2500 Other: Voiding Method Indwelling Catheter Indwelling Catheter ABP, PAP, CO, CI - Last Documented Arterial Blood Pressure 98/49 - Exam No acute distress, currently on BiPAP. Lethargic yet arousable. Currently on a BiPAP at a pressure of 12/6 with an FiO2 of 50% HEENT examination is grossly unremarkable. Neck supple. Full range of motion. No adenopathy thyromegaly or neck vein dis tention. Cardiovascular examination reveals regular rhythm rate. S1-S2 normal. No S3 or S4. There is a harsh systolic ejection murmur over the left sternal border and apex grade 4/6 Lungs reveal scattered rhonchi. Breath sounds equal bilaterally. Abdomen soft bowel sounds are heard. No masses or tenderness. Extremities are intact. No cyanosis clubbing or edema. Skin is without rash or lesion. Neurologic examination reveals the patient to be lethargic/somnolent. - Labs CBC & Chem 7: 07/08/23 03:20 07/08/23 03:20 Labs: Abnormal Lab Results - Last 24 Hours (Table) 07/08/23 07/08/23 Range/Units 03:20 03:20 WBC 12.7 H (3.8-10.6) k/uL RBC 4.15 L (4.30-5.90) m/uL MCV 102.4 H (80.0-100.0) fL Plt Count 91 L (150-450) k/uL Sodium 134 L (137-145) mmol/L Carbon Dioxide 21 L (22-30) mmol/L BUN 80 H (9-20) mg/dL Creatinine 2.98 H (0.66-1.25) mg/dL Calcium 7.7 L (8.4-10.2) mg/dL Total Protein 5.3 L (6.3-8.2) g/dL Albumin 2.7 L (3.5-5.0) g/dL Assessment and Plan Plan: Acute on chronic hypoxemic and hypercapnic respiratory failure. Respiratory failure is multifactorial. Initially the patient a large pericardial effusion probably related to chronic kidney disease. The patient underwent pericardial window. Currently he has significant consolidation of the right lung highly s uspicious for a pneumonia. Note that this pulmonary infiltration developed during his current hospital stay. Initial chest exit time of admission showed no significant pneumonias. At the same time, he has small bilateral pleural effusions. Follow-up chest x-ray from today shows no interval change in the extensive right lung consolidation and there is some infiltration left lung base. The patient is preferring BiPAP overnight high flow oxygen and will continue the BiPAP at the same setting for now. Is currently on IV Zosyn that was started on 07/05/2023. We'll add vancomycin. Pericardial effusion, S/P pericardial window, 06/29/2023, POD # 9, cultures are negative, cytology from the pericardial fluid was also negative or any malignancy. Hospital-acquired right lung pneumonia and the patient is currently on IV Zosyn, no significant interval change on the chest x-ray findings. Sputum Gram stain and culture was sent. Chronic Diastolic CHF. Acute on chronic kidney disease. Patient is currently undergoing daily hemodialysis, last session without his was performed yesterday with a total of 2 L of ultrafiltration Metabolic encephalopathy. Morbid obesity. Chronic atrial fibrillation, with paroxysmal atrial fibrillation/RVR. Rate is under better control with a combination of amiodarone and metoprolol. Patient is on no anticoagulation Moderately severe aortic stenosis. Hypotension, pressor dependent and the patient is requiring titration of the norepinephrine while being on hemodialysis. The patient is currently on a low- dose of norepinephrine Obstructive sleep apnea syndrome. History of alcoholism. Hyperlipidemia. Plan Continue BiPAP therapy for now at the same pressures May be able to transition him back to high flow oxygen as the patient is able to tolerate Complete hemodialysis with a goal of 1-2 L of ultrafiltration Continue IV Zosyn, add vancomycin pharmacy to dose specially with his underlying renal failure Daily chest x-rays No need for anticoagulants for now Monitor mental status Blood gas from yesterday was noted and the patient had adequate oxygenation and ventilation while being on a BiPAP. May need a set of blood cultures 2, results are still pending for now Monitor electrolytes Full CODE STATUS and will continue to follow make further recommendations based on his progress Condition is critical, evaluation was done > 30min Time with Patient: Greater than 30
[2023-07-08] MEDS ORDERED: VANCOMYCIN 2,000 MG in SODIUM CHLORIDE 0.9% 500 ML 500 ML IVPB ONE (10:00)
--- NOTE | 2023-07-08 10:22 | P.PN ---
Subjective Patient is seen for follow-up for acute kidney injury. Patient was started on hemodialysis on 07/06/2023 due to worsening renal function and respiratory status with volume overload. Urine output increased to about 50-70 ML per hour. Status post UF of 2.5 L with hemodialysis yesterday. Currently awake , seen on hemodialysis Maintained on BiPAP Objective - Vital Signs Vital signs: Vital Signs Temp 98 F 07/08/23 04:00 Pulse 105 H 07/08/23 08:17 Resp 15 07/08/23 07:30 BP 109/77 07/08/23 07:30 Pulse Ox 96 07/08/23 07:15 FiO2 50 07/08/23 07:44 Intake & Output 07/07/23 07/08/23 07/08/23 18:59 06:59 18:59 Intake Total 1352.471 174.265 Output Total 2633 301 Balance -1280.529 -126.735 Weight 123 kg Intake: IV 230 50 Piperacillin-Tazobactam 3 200 5 .375 gm In Sodium Chloride 0.9% 100 ml @ 25 mls/hr IVPB Q8HR [facility] Rx# :[id number] Sodium Chloride 0.9% 1, 30 000 ml @ 999 mls/hr IV . Q1H1M [facility] Rx#:[id number] kvo 45 Intake, IV Titration 122.471 124.265 Amount Norepinephrine 4 mg In 122.471 124.265 Sodium Chloride 0.9% 250 ml @ 0.03 MCG/KG/MIN 14. 059 mls/hr IV .Q18H4M [facility] Rx#:[id number] Oral 500 Hemodialysis 500 Output: Urine 133 301 Hemodialysis 2500 Other: Voiding Method Indwelling Catheter Indwelling Catheter ABP, PAP, CO, CI - Last Documented Arterial Blood Pressure 98/49 - Exam Patient is currently on BiPAP He is awake. Short of breath. Remains confused on and off Examination of the heart S1 and S2 Examination of the lungs bilateral breath sounds are heard Abdomen is soft nontender, obese Examination of lower extremity shows 2+ edema - Labs CBC & Chem 7: 07/08/23 03:20 07/08/23 03:20 Labs: Abnormal Lab Results - Last 24 Hours (Table) 07/08/23 07/08/23 Range/Units 03:20 03:20 WBC 12.7 H (3.8-10.6) k/uL RBC 4.15 L (4.30-5.90) m/uL MCV 102.4 H (80.0-100.0) fL Plt Count 91 L (150-450) k/uL Sodium 134 L (137-145) mmol/L Carbon Dioxide 21 L (22-30) mmol/L BUN 80 H (9-20) mg/dL Creatinine 2.98 H (0.66-1.25) mg/dL Calcium 7.7 L (8.4-10.2) mg/dL Total Protein 5.3 L (6.3-8.2) g/dL Albumin 2.7 L (3.5-5.0) g/dL Assessment and Plan Assessment: 1. Acute kidney injury, ATN currently nonoliguric. Component of cardiorenal syndrome as well. Indwelling Gordon catheter present. Renal function had improved however worse again with volume overload. Started hemodialysis 07/06/2023 2. Hyperkalemia associated with acute kidney injury. No evidence of obstruction on ultrasound. 3. Acute hypercapnic respiratory failure, switched from BiPAP to airVO and today on nasal cannula. 4. Chronic kidney disease NKF stage IV with baseline creatinine around 2 mg/dL etiology is likely nephrosclerosis. Previous UA showed negative to trace prote in. UA this admission shows 2+ protein. This will be monitored and workup will be performed down the road. 5. Hypercalcemia associated with primary hyperparathyroidism, started on Sensipar last admission. Currently on hold as calcium is low now. Patient was supposed to have nuclear scan of the parathyroid gland performed as outpatient. 6. Moderate pulmonary hypertension 7. Morbid obesity 8. A. fib with RVR currently maintained on amiodarone drip. 9. Large pericardial effusion status post pericardiocentesis of 1 L and then about 200 mL the next day. 10. Hypernatremia associated with free water deficit, resolved Plan: Repeat hemodialysis in a.m. with goal UF of 1-2 L
[2023-07-08 11:12] LABS: Glucose,Whole Blood 77 mg/dL (70-110)
[2023-07-08] MEDS: HEPARIN SODIUM,PORCINE 5,000 UNIT/ML 1 ML VIAL SQ SCH ×2 (12:24→20:01)
[2023-07-08] MEDS: SENNOSIDES 8.6 MG TAB PO SCH (12:25)
[2023-07-08] MEDS: METOPROLOL TARTRATE 12.5 MG TAB PO SCH ×2 (12:25→19:57)
[2023-07-08] MEDS: FOLIC ACID 1 MG TAB PO SCH (12:25)
[2023-07-08] MEDS: AMIODARONE 200 MG TAB PO SCH ×2 (12:25→20:01)
[2023-07-08] MEDS: FAMOTIDINE 20 MG/2 ML VIAL IV SCH (12:26)
[2023-07-08 12:53] LABS: Glucose,Whole Blood 76 mg/dL (70-110)
--- NOTE | 2023-07-08 14:30 | P.PN ---
Subjective This is a pleasant 73 years old male with multiple medical problems including Atrial Fibrillation, Heart Failure, COPD, GI Bleed, Hyperlipidemia, Hypertension, chronic kidney disease/CPAP/BIPAP,Hiatal hernia, cateracts, d iverticulosis, CPAP use, Falls, Patient presents because transferred from [facility] for respiratory failure, on arrival he was hypotensive. He was recently in the hospital 06/17-06/19 for hypercalcemia and he was discharged on Sensipar which is thought secondary to hyperparathyroidism. Patient currently lives in the ICU using the BiPAP machine which limits history taken and provide information on the top of that patient is confused but he follows commands appropriately. He can answer some questions like he says he has no pain. He is asking if he can smoke now we explained for him he cannot declines the nicotine patch. Patient currently mildly tachycardic around 108, blood pressure is better 101/81 while he is on pressors. He is on BiPAP machine and he had a temperature of 98. 6. showing creatinine of 5.2 with baseline 2.2-2.9, calcium slightly elevated at 11.5. WBC is 15.7 while on steroids, while rest of CBC is unremarkable TSH is elevated at 4.7 but free T4 is normal [place] 0[place] [address] Ultrasound showing on obstructive uropathy but there is acute cholecystitis with thickened wall. Chest x-ray is suspicious for cardiomegaly and pulmonary edema EKG showing A. fib with rate of 82 b per minute. Patient currently in the ICU on amiodarone drip, Lasix drip at 10 mg per hour , levophed at 0.03 and Solu-Medrol 60 mg, Precedex and IV thiamine 06/28/2023 patient cannot get off the BiPAP overnight and early this morning, he desaturates easily. He remains on amiodarone drip, Lasix drip at 10 mg per hour, and a small dose of levophed at 0.03 and Precedex and thiamine. Distal, not tolerate oral medication and his Eliquis switch to Lovenox 120 mg once daily because of his high creatinine This pH 7.3, pCO2 50 and PaO2 of 76, which is a slightly better than yesterday. Creatinine coming down to 4.4. Ca is also coming down 10.1. WBC still elevated at 13.9 but also patient on steroids. General surgery R following for acute cholecystitis, HIDA scan is ordered, currently on Flagyl and Rocephin 06/29/2023 Patient evaluated today in the ICU. Has been transitioned to airvo. HIDA scan has been placed on hold today as there is findings of large pericardial effusion and cardiothoracic has been consulted. Echocardiogram shows normal LV function, with severe aortic stenosis, mild to moderate TR, mild MR, mild pulmonary hypertension, large pericardial effusion with no clear tamponade. He also had chest xray showing cardiomegaly with mild bibasilar effusions. Mild at the right base. Correlate for CHF. Small amount of atelectasis at the right base. Patient will be going for a pericardial window today. He continues on amiodarone gtt, continues on IV Lasix at 10 mg per hour, he is also on precedex and levophed. Patient is anticoagulated with lovenox. He is on IV ceftriaxone and IV flagyl. White blood cell count today is 13.7, BUN 117, creatinine 3.83. Procalcitonin 0.47. He is afebrile, heart rate in the 110s. Blood pressure marginal 84/57. 06/30/2023 Patient evaluated in the ICU. Status post pericardial window. No plans for HIDA scan of yet. He is more awake and alert today and responding to questions appropriately. He feels his leg swelling is much improved. He remains on airvo high flow oxygen support at 60L 93% FiO2. Saturations around 93%. He remains in and out of a.fib with RVR he has been taken off the amio gtt and placed on IV cardizem. Plans to transition off the lasix gtt today. He is on IV ceftriaxone, IV flagyl, IV solumedrol. He remains on a small dose of levo. Chest xray today showing moderate cardiomegaly with underlying pulmonary vascular congestion, small left greater than right pleural effusions with adjacent atelectasis and or consolidation. Some partially improving aeration of the left base compared to prior exam. Limited echocardiogram today showing small pericardial effusion. 07/01/2023 Patient remains in the ICU, his sitting in chair on nerve or with a flow rate of 60 L/m some saturation of FiO2 of 93%. He denies chest pain, mildly tachypneic. He is obese with mild fluid overload. His blood pressure is 107/58, heart rate 101, A. fib while he is on amiodarone and Cardizem drip Also is a small dose of pressors with Levophed at 0.03. Sodium is elevated at 149 and currently he is on D5W at 50 mL per hour. He does not show signs symptoms of alcohol withdrawal, he is on broad-spectrum antibiotics of Rocephin and Flagyl started by surgery team for suspected gallbladder disease. Currently he denies any abdominal pain. Remains on IV Solu-Medrol 60 mg as well. Creatinine improving down to 4. Cholecystectomy. 3. WBC 11.3. Cardiothoracic surgery followed closely and he is status post pericardial window and drainage of pericardial effusion of 1 L and today more than 200 mL. 07/02/2023 Patient in the ICU, sitting up in chair this morning, he looks more awake comfortable and relaxed however he still in mild respiratory distress and mild tachypnea. His oxygen requirement is less today and his currently on 7 L at high flow nasal cannula. Blood pressure 111/59, slightly tachypneic about 20-24 and he is afebrile. Creatinine improvement 3.6 sodium improving 147, still have mild leukocytosis but also is on steroids. Chest x-ray today I reviewed by myself showing better variation on the right lower zone but increased pleural effusion on the left side with possible adjacent atelectasis. Distal on Solu-Medrol 60 mg, broad-spectrum antibiotics by surgery team for Rocephin and oral Flagyl suspected for acute cholecystitis, patient currently he denies any right upper quadrant abdominal pain or tenderness. Remains on D5W at 75 mL/h. His metoprolol, torsemide on Eliquis remaining on hold currently. Resume the care of the patient 07/07/2023 Patient conditions worsened over the last 2-3 days, Currently he is on BiPAP lethargic and encephalopathic Is mildly tachypneic Chest x-ray showing right-sided pneumonia and pleural effusion Currently covered with Zosyn Started on low-dose pressors with Levophed today. 07/08/2023 Patient remains in the ICU,. Lethargic and weak, he's BiPAP dependent for aspiration pneumonia versus hospital-acquired pneumonia with chest x-ray showing bilateral basal infiltrates. Patient currently covered with Zosyn, IV vancomycin was added today. He is hemodynamically the same, still requiring pressors, blood pressure 111/59. Tachycardic and tachypneic. He is on BiPAP. His creatinine improving 2.9, WBC 12.7, sodium improved to 134, Objective - Vital Signs Vital signs: Vital Signs Temp 98 F 07/08/23 04:00 Pulse 112 H 07/08/23 13:00 Resp 25 H 07/08/23 13:00 BP 98/69 07/08/23 13:00 Pulse Ox 91 L 07/08/23 13:00 FiO2 50 07/08/23 11:15 Intake & Output 07/07/23 07/08/23 07/08/23 18:59 06:59 18:59 Intake Total 1352.471 174.265 789.412 Output Total 2633 301 165 Balance -1280.529 -126.735 624.412 Weight 123 kg Intake: IV 230 50 130 Piperacillin-Tazobactam 3 200 5 100 .375 gm In Sodium Chloride 0.9% 100 ml @ 25 mls/hr IVPB Q8HR [facility] Rx# :[id number] Sodium Chloride 0.9% 1, 30 000 ml @ 999 mls/hr IV . Q1H1M ONE Rx#:[id number] kvo 45 30 Intake, IV Titration 122.471 124.265 659.412 Amount Norepinephrine 4 mg In 122.471 124.265 159.412 Sodium Chloride 0.9% 250 ml @ 0.03 MCG/KG/MIN 14. 059 mls/hr IV .Q18H4M [facility] Rx#:[id number] Vancomycin 1,750 mg In 500 Sodium Chloride 0.9% 500 ml 500 ml @ 167 mls/hr IVPB ONCE ONE Rx#: [id number] Oral 500 Hemodialysis 500 Output: Urine 133 301 165 Hemodialysis 2500 Other: Voiding Method Indwelling Catheter Indwelling Catheter Indwelling Catheter ABP, PAP, CO, CI - Last Documented Arterial Blood Pressure 98/49 - Exam --GENERAL: The patient is awake , lethargic on BiPAP HEENT: Pupils are round and equally reacting to light. EOMI. No scleral icterus. No conjunctival pallor. Normocephalic, atraumatic. No pharyngeal erythema. No thyromegaly. CARDIOVASCULAR: S1 and S2 present. No murmurs, rubs, or gallops. -PULMONARY: Chest is limited air entry on both sides, slightly better than yesterday, no wheezing , no crackles. Mildly tachypneic while he is on BiPAP ABDOMEN: Soft, nontender, nondistended, normoactive bowel sounds. No palpable or ganomegaly. MUSCULOSKELETAL: No joint swelling or deformity. EXTREMITIES: No cyanosis, clubbing, or pedal edema. NEUROLOGICAL: Gross neurological examination did not reveal any focal deficits. SKIN: No rashes. no petechiae. - Labs CBC & Chem 7: 07/08/23 03:20 07/08/23 03:20 Labs: Abnormal Lab Results - Last 24 Hours (Table) 07/08/23 07/08/23 Range/Units 03:20 03:20 WBC 12.7 H (3.8-10.6) k/uL RBC 4.15 L (4.30-5.90) m/uL MCV 102.4 H (80.0-100.0) fL Plt Count 91 L (150-450) k/uL Sodium 134 L (137-145) mmol/L Carbon Dioxide 21 L (22-30) mmol/L BUN 80 H (9-20) mg/dL Creatinine 2.98 H (0.66-1.25) mg/dL Calcium 7.7 L (8.4-10.2) mg/dL Total Protein 5.3 L (6.3-8.2) g/dL Albumin 2.7 L (3.5-5.0) g/dL Assessment and Plan Assessment: Right lower lobe pneumonia Acute hypoxic respiratory failure requiring BiPAP COPD with exacerbation, resolved Acute on chronic diastolic CHF with a preserved ejection fraction Possible acute cholecystitis, versus intra-abdominal infection on broad-spectrum antibiotic Pericardial effusion status post pericardial window for drainage A. fib and RVR Acute kidney injury on chronic kidney disease stage IV Moderate to severe aortic stenosis Hypercalcemia secondary to hyperparathyroidism on treatment Alcohol use disorder Nicotine dependence Chronic hypoxic respiratory failure Morbid obesity with BMI 41.7. Plan: Continue with Zosyn, and IV vancomycin Continue with pressors Pulmonary team on the case General surgery R following for acute cholecystitis, Antibiotic started with Rocephin and Flagyl Several consultants of the case with the pulmonary/critical care team, nephrology, neurology. Cardiothoracic surgery team Labs and medication were reviewed.. Continue same treatment. Continue with symptomatic treatment. Resume home medication. Monitor labs and vitals. DVT and GI prophylaxis. Further recommendations as per clinical course of the patient DVT prophylaxis: on eliquis GI Prophylaxis: Pepcid PT/OT: differed Prognosis is guarded
[2023-07-08 16:30] LABS: Glucose,Whole Blood 86 mg/dL (70-110)
[2023-07-08 19:50] LABS: Glucose,Whole Blood 84 mg/dL (70-110)
[2023-07-08] MEDS: MONTELUKAST 10 MG TAB PO SCH (20:01)
[2023-07-08] MEDS: ATORVASTATIN 80 MG TAB PO SCH (20:01)
[2023-07-09] MEDS: ALBUTEROL NEBULIZED 2.5 MG/3 ML INHALATION PRN ×2 (03:04→23:47)
[2023-07-09] MEDS: NOREPINEPHRINE 4 MG in SODIUM CHLORIDE 0.9% 250 ML IV SCH (03:06)
[2023-07-09 06:25] LABS: HCT 40.3 % (39.0-53.0); HGB 12.6 gm/dL (13.0-17.5); Hypochromasia Slight; MCH 32.3 pg (25.0-35.0); MCHC 31.3 g/dL (31.0-37.0); MCV 103.5 fL (80.0-100.0); Macrocytosis Slight; Mean Platelet Volume 12.5; RBC 3.89 m/uL (4.30-5.90); WBC 11.3 k/uL (3.8-10.6)
[2023-07-09 06:46] LABS: Platelet Count 84 k/uL (150-450)
[2023-07-09 06:51] LABS: ALT 19 U/L (4-49); AST 31 U/L (17-59); African American GFR (CKD) 25 (>60 ml/min/1.73 sqM); Albumin 2.7 g/dL (3.5-5.0); Alkaline Phosphatase 120 U/L (38-126); Anion Gap 11 mmol/L; Blood Urea Nitrogen 56 mg/dL (9-20); Calcium 7.5 mg/dL (8.4-10.2); Carbon Dioxide 26 mmol/L (22-30); Chloride 98 mmol/L (98-107); Glucose 82 mg/dL (74-99); Non-African American GFR(CKD) 22 (>60 ml/min/1.73 sqM); Potassium 3.4 mmol/L (3.5-5.1); Sodium 135 mmol/L (137-145); Total Bilirubin 0.9 mg/dL (0.2-1.3); Total Protein 5.1 g/dL (6.3-8.2)
[2023-07-09 07:03] LABS: Glucose,Whole Blood 84 mg/dL (70-110)
[2023-07-09] MEDS: MIDODRINE 5 MG TAB PO SCH ×3 (07:06→16:51)
[2023-07-09] MEDS: INSULIN ASPART (NovoLOG) 100 UNIT/ML VIAL SQ SCH ×4 (07:06→21:37)
[2023-07-09] MEDS: IPRATROPIUM-ALBUTEROL 3 ML NEB INHALATION SCH ×4 (08:09→20:02)
--- NOTE | 2023-07-09 08:48 | P.PN ---
Subjective Progress Note Date: 07/09/23 Acute on chronic hypoxic and hypercapnic respiratory failure This is a 73-year-old white male with history of multiple medical problems including chronic congestive heart failure, COPD, chronic kidney disease, chronic hypoxic respiratory failure, obstructive sleep apnea syndrome, maintained on CPAP now patient was transferred from [facility] with 2 days history of increased shortness of breath. I have seen this patient in the past and his last evaluation in the hospital was on 02/16/2023. At that time the patient presented with acute on chronic hypoxic and hypercapnic respiratory failure with congestive heart failure and COPD. He should also had moderate severe aortic stenosis, and morbid obesity as well as chronic atrial fibrillation. Back then the patient was treated mostly aggressively with diuretics, and he was eventually discharged home after almost a week stay in the ICU. This time the patient has a very similar presentation, I saw the patient in the ER, and his is at bedside. Patient is now on BiPAP which I have adjusted to IPAP of 16 and EPAP 6, and he is also on 100% FiO2. ABG is pending, earlier venous ABG showed a pCO2 of 120 and pH of 7.01. After I evaluated the patient, I recommended immediate transfer to the ICU ABG, ultrasound of the chest, I cut down his IV fluid to KVO, started the patient on Lasix drip at 10 mg per hour. And explained to the that the patient may require intubation mechanical ventilation if his condition does not improve much and a short period of time. For low blood pressure may consider using norepinephrine, would definitely avoid using fluids at this point. Labs were reviewed chest x-ray was reviewed his BUN is 99 creatinine is 5.25, and his creatinine only a few days ago was 2.07. Apparently he is developing a worsening picture of chronic kidney disease. Could be cardiorenal. BNP level is 14,900 Reevaluated today on 06/27/2023, patient remains in the ICU, remains on Lasix drip at 10 mg per hour, amiodarone 0.5 mg/m for atrial fibrillation/RVR which she developed last night patient does have chronic history of atrial fibrillation remains on norepinephrine at 0.04 mcg/kg/m, he is on Precedex at 0.2 mcg/kg/hr, IV fluid at 20 mL per hour in the form of 0.9 normal saline. Blood pressure is noted to be borderline. Hence patient had a left subclavian triple-lumen catheter placed and a left radial arterial line placement. Repeat ABG this morning continues to show significant metabolic and respiratory acidosis pO2 of 79 pCO2 62 pH of 7.21, potassium is up to 5.19, patient was given 1 amp of bicarb for his acidosis. His BUN is 107 creatinine 5.17, slightly better compared to yesterday, patient is being evaluated by nephrology. Remains on BiPAP at 16/6/75% FiO2. And overall his clinical status is critically ill/marginal. Patient is definitely high risk for intubation mechanical ventilation, the patient and his are both aware of this, however at this point I will hold on mechanically ventilated the patient. We'll continue BiPAP, continue Lasix drip, and continue pressors patient may eventually require hemodialysis. Ultrasound of the chest showed small bilateral pleural effusions left more so than right, the left sided pocket is not large enough to consider safe left sided thoracentesis. Patient was reevaluated today on 06/2023, remains in the ICU, remains on Lasix drip at 10 mg per hour, remains on BiPAP at 12/6/75%. Patient is still requiring Precedex at 0.6 mcg/kg/h, norepinephrine at 0.03 mcg/kg/m. Patient is negative balance over the last 24 hours about 2 L. And he is steadily improving but remains critically ill, and simply requiring pressors. ABG showed a pO2 of 76 pCO2 of 50 pH of 7.34, significantly improved compared to his initial ABG on admission where his pCO2 was in the 120 range. Patient remains on Rocephin and Flagyl, his CT of the abdomen raised the possibility of acute cholecystitis, but clinically I do not see any evidence of cholecystitis, the patient has no pain or tenderness in the right upper quadrant. Being considered for a HIDA scan. CT of the brain came back negative for acute process. WBC count today is 13.9 hemoglobin 15.4. Platelets are 226, basic metabolic profile is normal BUN is 111 creatinine is down to 4.44 improving in spite of aggressive diuresis on this patient. If her enzymes are basically normal. Chest x-ray this morning showed cardiomegaly, pulmonary vascular congestion, bilateral pleural effusions, however based on ultrasound, the left-sided pleural effusion was not large enough to consider safe thoracentesis Progress note dated 06/29/2023. 73-year-old male seen in the intensive care unit, room 262. The patient is scheduled to have a pericardial window done today, June 29. Briefly, the patient was admitted to the hospital June 26, for CHF, acute mental status changes, and a pericardial effusion. The patient was admitted to the intensive care unit, on the day of admission. The patient's been between BiPAP, with settings of 12/6, and 75%, or AIRVO, at 60 L/m with an FiO2 of 80%. The patient is currently on norepinephrine at 2 mcg/m, dexmedetomidine at 0.3 mcg/kg/h, amiodarone at 0.5 mg/m, a Lasix drip at 10 mg an hour, and saline at KVO. White count is 13.7, hemoglobin 16, hematocrit 48.9, and a platelet count of 203,000. Sodium 143, potassium 4.1, chlorides 102, CO2 28, BUN 117, and creatinine 3.83. Pro-calcitonin level is 0.47, from yesterday. Chest x-ray shows cardiomegaly, with bibasilar effusions. Progress note dated 06/30/2023. 73-year-old male with a history of pericardial effusion. The patient had a bedside procedure done yesterday, to drain the pericardial effusion. About 1 L of fluid was removed. Currently, he's on AIRVO, at 60 L/m, with an FiO2 of 94%. He continues on Lasix drip at 10 mg an hour, norepinephrine at 7.1 mcg/m, amiodarone at 0.5 mg/m, and a Cardizem drip of 7.5 mg an hour. The patient spent some time on BiPAP as well. White count 15.1, hemoglobin 15, hematocrit 47.6, and platelet count 182,000. Sodium 147, potassium 3.3, chlorides 105, CO2 28, BUN 122, and creatinine 3.72. Glucose 193. Calcium is 9.0. Chest x-ray shows a pericardial drain. There is some volume loss of the left lower lobe, and small bilateral pleural effusions. Progress note dated 07/01/2023. 73-year-old male with history of pericardial effusion. The patient is postop day #2, status post pericardial window drainage catheter. He seen today in room 262. He continues on either AIRVO, at 50 L/m, with an FiO2 of 75%, or BiPAP, with settings of 12/6, and 85%. The patient continues on norepinephrine at 3.5 mcg/m, D5W at 50 mL an hour, and Cardizem drip at 7.5 mg an hour. The patient's pericardial catheter, was drained yesterday, and 235 mL of fluid was removed. White count 11.3, hemoglobin 14.3, hematocrit 44.7, and platelet count 136,000. Sodium 148, potassium 3.7, chlorides 107, CO2 27, BUN 129, and creatinine 3.82. Glucose 170. Calcium is 8.6. Chest x-ray shows cardiomegaly, and pulmonary vascular congestion, small bilateral effusions. Progress note dated 07/02/2023. 73-year-old male with history of pericardial effusion. The patient is postop day #3, status post pericardial window with drainage catheter. He seen today in room 262. Currently, he is on AIRVO, at 35 L/m with an FiO2 of 50%. The patient is getting D5W at 75 mL an hour. Over the last couple of days, the fluid removed from the pericardial space, has been very limited. White count is 10.9, hemoglobin 13.4, hematocrit 3.2, and platelet count 97,000. Sodium 147, potassium 3.6, chlorides 108, CO2 29, BUN 132, and creatinine 3.69. Glucose 2:1 5, calcium is 8.2. Chest x-ray shows cardiomegaly, and mild CHF with pulmonary vascular congestion. Progress note dated 07/03/2023. 73-year-old male with a history of pericardial effusion, postop day #4, status post pericardial window, which drainage catheter. The catheter has subsequently been removed. The patient is seen today in room 253. The patient is currently on AIRVO, with settings of 35 L/m, and an FiO2 of 60%. He's not receiving any IV fluids. Solu-Medrol will be discontinued. He apparently spent a few hours on BiPAP last night, with settings of 12/6, at the percent. The patient has been downgraded, and can be transferred out of the ICU. Laboratory data today includes a white count 12.2, hemoglobin 13.1, hematocrit 42, and platelet count 86,000. Sodium 143, potassium 3.7, chlorides 105, CO2 26, BUN 120, and creatinine 3.43. Calcium is 7.9. Culture data is pending or negative. Chest x-ray shows findings of CHF, and cardiomegaly. Small to moderate pleural effusi on, left greater than right. Progress note dated 07/04/2023. 73-year-old male, seen today in room 253. He is postop day #5, status post pericardial window, with insertion of a drainage catheter. Catheter has been removed. Currently, the patient is on BiPAP, with settings of 12/6, and 50%. Alternatively, the patient can be on AIRVO, at 35 L/m, with an FiO2 of 70%. Lasix has been added twice a day by nephrology. I believe that to be appropriate. The patient's not receiving any IV fluids. Labs today include sodium 141, potassium 3.8, chlorides 105, CO2 28, BUN 116, and creatinine 2.84. Calcium is 7.9. Progress note dated 07/05/2023. 73-year-old male seen today in room 253. He's postop day #6, status post pericardial window, insertion of a drainage catheter. Catheter has been re moved. The patient is currently on BiPAP, with settings of 12/6, and 50%. He's not on any IV fluids. We will check a pro-calcitonin level today. The patient could not tolerate AIRVO yesterday. Current labs include a white count 16.5, hemoglobin 16, hematocrit 52, and platelet count 98,000. Sodium 140, potassium 4, chlorides 101, CO2 27, BUN 118, and creatinine 2.87. Glucose 124. Chest x-ray shows mild fluid overload, and a potentially developing right lower lobe airspace infiltrate. Progress note dated 07/06/2023. 73-year-old male seen in 253. The patient continues in the intensive care unit. Today is postoperative day #7, status post pericardial window, and insertion of a pericardial drainage catheter. The patient's pericardial drainage catheter has subsequently been removed. This patient 1 day looks better, and the next day looks worse. Today he looks worse. He continues on BiPAP, his been pretty much BiPAP dependent, for the last couple days, with settings of 12/6, and 50%. He could not tolerate the AIRVO. In addition, because of worsening renal function, hemodialysis catheter will be placed, and the patient will undergo hemodialysis. His pro-calcitonin level was 0.41. He's currently on Zosyn. He seems much less alert today. White count 17.9, hemoglobin 15.2, hematocrit 51, and platelet count 100,000. Sodium 137, potassium 4.2, chlorides 100, CO2 23, a nion gap 14, BUN 127, creatinine 3.12. Chest x-ray reveals worsening infiltrate in the right lung, and bilateral pleural effusions. Also the upper lobe vessels are enlarged. On today's evaluation of 07/07/2023, the patient is being seen for a follow-up. The patient is known to have multiple medical problems and comorbidities. Is known to have COPD, CHF, chronic kidney disease And chronic hypoxic respiratory failure along with obstructive sleep apnea maintained on CPAP therapy on outpatient basis. He also suffers from chronic atrial fibrillation. The patient presented to us with an acute on top of chronic kidney failure, acute on top of chronic hypoxic and hypercapnic respiratory failure and he was found to have a large pericardial effusion. The patient underwent a pericardial window. He continued to be hypoxic throughout the hospitalization requiring high flow oxygen alternating with a BiPAP. He was back and forth to the intensive care unit. Currently is back in the ICU with hypoxic respiratory failure. He was unable to tolerate the high flow oxygen and currently is on BiPAP at a pressure of 12/6 with an FiO2 of 50%. Chest x-ray showing improvement in the previously described cardiomegaly. However, there is an extensive right lung consolidation consistent with pneumonia. Small pleural effusion on the left is also seen. The patient is currently undergoing hemodialysis. He underwent his first session of hemodialysis yesterday and the second session is being done this morning with a goal of ultrafiltration of 2.5 L. BUN is at 100 with a creatinine of 3.05 and a sodium level is at 135. The white cycles of 12.7 with a hemoglobin of 15.2. The patient is covered with IV Zosyn as a broad-spectrum antibiotic coverage. He is currently on norepinephrine running at 0.04 g pretty kilogram per minutes. Urine output is dropped and the patient is producing approximately 50 mL an hour. Overall fluid balance is +500 mL over the past 24 hours. Based on his underlying hypotension, he was given a bolus of 1000 mL of normal saline yesterday. I did with his echocardiogram and it showed a large pericardial effusion and this was obtained preoperatively. Never theless, the patient is a preserved LV function, he has severe aortic stenosis with a peak gradient of 76 and then medium gradient of 43 with mild regurgitation. His current cardiac rhythm is atrial fibrillation. Slightly tachycardic. Maintains on amiodarone 200 mg by mouth twice a day. He is also metoprolol 12.5 mg by mouth twice a day. No anticoagulants at this point in time. He is lethargic yet arousable. He is following simple commands. No massive edema in the lower extremities. He has a dialysis catheter in his right femoral vein. 07/08 2023, the patient is being seen in follow-up. The patient is critically ill with hypoxic respiratory failure secondary to bilateral pneumonia more extensive on the right. A repeat chest x-ray was done today and shows persistent consolidation of the right right lung more so on the right lower lobe. The patient is currently on a BiPAP at a pressure of 12 are 6 with an FiO2 of 50%. He was transitioned to high flow oxygen at 50 L yesterday and utilizes for several hours and overnight he went back on BiPAP at the current setting. Current pulse ox is at 91-92%. In terms of antibiotic coverage, the patient's is still on IV Zosyn. He is afebrile. Hemodynamically, the patient remains on norepinephrine which is running at 0.04 mcg/kg/m. Cardiac rhythm is atrial fibrillation. No cultures are available for the time being. The white cycles of 12.7 which is comparable to yesterday with a hemoglobin of 15.6 and a platelet count of 91. BUN is at 80 with a creatinine of 2.9 and sodium levels of 134 with a potassium level of 4.3. The patient is undergoing another session of hemodialysis this morning. The goal is also infiltrate in for a total of 1-2 L. Yesterday, he was INFILTRATED for a total of 2 L. Note that the patient has also severe aortic stenosis with a preserved LV function. No significant edema lower extremities. No agitation. No confusion. No altered mentation. He is an atrial fibrillation. Rate is controlled. No anticoagulants for now. No signs of any focal neurological deficit at this point in time. 07/09/2023, seeing the patient for a follow-up. The patient is currently sitting up on a recliner and he is still utilizing his BiPAP at a pressure of 12/6 with an FiO2 of 50%. Is awake and alert and communicating. He is still tachypneic while on the BiPAP. His generating adequate tidal volumes which are above 600 mL's. The chest x-ray still showing a dense consolidation of the right lung consistent with persistent pneumonia. Hospital-acquired pneumonia was suspected on this patient and the patient was given a combination of Zosyn and vancomycin was also added yesterday to broaden the antibiotic coverage. On today's evaluation, the blood WBC count is 11.3 with a hemoglobin 12.6, BUN is a 56 with a creatinine of 2.7 and a sodium level is at 135. The patient's last hemodialysis session was yesterday with a total of 1.8 L of ultrafiltration. He did have a bowel movement earlier. No significant abdominal distention for now. I try to transition this patient to a high flow oxygen system which she failed and he prefers to stay on the BiPAP. Unfortunately, no significant progress in terms of his right lung consolidation/pneumonia. Left lung is clear on today's chest x-ray. Oral intake is quite diminished and minimal at this point in time. No agitation. No confusion. His cardiac rhythm is controlled a chest fibrillation. No anticoagulants for now. Objective - Vital Signs Vital signs: Vital Signs Temp 97.6 F 07/09/23 00:00 Pulse 84 07/09/23 08:26 Resp 20 07/09/23 07:00 BP 118/82 07/09/23 07:00 Pulse Ox 92 L 07/09/23 07:00 FiO2 50 07/09/23 07:40 Intake & Output 07/08/23 07/09/23 07/09/23 18:59 06:59 18:59 Intake Total 1289.412 297.167 83.73 Output Total 2525 280 30 Balance -1235.588 17.167 53.73 Weight 120.3 kg Intake: IV 230 210 10 KVO 30 110 10 Piperacillin-Tazobactam 3 200 100 .375 gm In Sodium Chloride 0.9% 100 ml @ 25 mls/hr IVPB Q8HR [facility] Rx# :[id number] Intake, IV Titration 659.412 87.167 73.73 Amount Norepinephrine 4 mg In 159.412 87.167 73.73 Sodium Chloride 0.9% 250 ml @ 0.03 MCG/KG/MIN 14. 059 mls/hr IV .[id number] [facility] Rx#:[id number] Vancomycin 1,750 mg In 500 Sodium Chloride 0.9% 500 ml 500 ml @ 167 mls/hr IVPB ONCE ONE Rx#: [id number] Hemodialysis 400 Output: Urine 325 280 30 Hemodialysis 2200 Other: Voiding Method Indwelling Catheter Indwelling Catheter # Bowel Movements 1 ABP, PAP, CO, CI - Last Documented Arterial Blood Pressure 98/49 - Exam No acute distress, currently on BiPAP. Lethargic yet arousable. Currently on a BiPAP at a pressure of 12/6 with an FiO2 of 50% HEENT examination is grossly unremarkable. Neck supple. Full range of motion. No adenopathy thyromegaly or neck vein distention. Cardiovascular examination reveals regular rhythm rate. S1-S2 normal. No S3 or S4. There is a harsh systolic ejection murmur over the left sternal border and apex grade 4/6 Lungs reveal scattered rhonchi. Breath sounds equal bilaterally. Abdomen soft bowel sounds are heard. No masses or tenderness. Extremities are intact. No cyanosis clubbing or edema. Skin is without rash or lesion. Neurologic examination reveals the patient to be lethargic/somnolent. - Labs CBC & Chem 7: 07/09/23 05:41 07/09/23 05:41 Labs: Abnormal Lab Results - Last 24 Hours (Table) 07/09/23 07/09/23 Range/Units 05:41 05:41 WBC 11.3 H (3.8-10.6) k/uL RBC 3.89 L (4.30-5.90) m/uL Hgb 12.6 L (13.0-17.5) gm/dL MCV 103.5 H (80.0-100.0) fL Plt Count 84 L (150-450) k/uL Sodium 135 L (137-145) mmol/L Potassium 3.4 L (3.5-5.1) mmol/L BUN 56 H (9-20) mg/dL Creatinine 2.78 H (0.66-1.25) mg/dL Calcium 7.5 L (8.4-10.2) mg/dL Total Protein 5.1 L (6.3-8.2) g/dL Albumin 2.7 L (3.5-5.0) g/dL Microbiology - Last 24 Hours (Table) 07/07/23 10:56 Blood Culture - Preliminary Blood 07/07/23 10:56 Blood Culture - Preliminary Blood Assessment and Plan Plan: Acute on chronic hypoxemic and hypercapnic respiratory failure. Respiratory failure is multifactorial. Initially the patient a large pericardial effusion probably related to chronic kidney disease. The patient underwent pericardial w indow. Currently he has significant consolidation of the right lung highly suspicious for a pneumonia. Note that this pulmonary infiltration developed during his current hospital stay. Initial chest exit time of admission showed no significant pneumonias. At the same time, he has small bilateral pleural effusions. Follow-up chest x-ray from today shows no interval change in the extensive right lung consolidation and there is some infiltration left lung base. The patient is preferring BiPAP overnight high flow oxygen and will continue the BiPAP at the same setting for now. Is currently on IV Zosyn that was started on 07/05/2023. Vancomycin was also added on 07/08/2023. Chest x- ray showing a dense consolidation of the right lung and the patient is suspected to have a hospital-acquired pneumonia. No significant interval change in the right lung consolidation and the patient remains BiPAP dependent. He is still failing high flow oxygen. Pericardial effusion, S/P pericardial window, 06/29/2023, POD # 10, cultures are negative, cytology from the pericardial fluid was also negative or any malignancy. Hospital-acquired right lung pneumonia and the patient is currently on IV Zosyn and vancomycin, no significant interval change on the chest x-ray findings. Unable to collect a sputum sample Episodic hypotension, currently on a low-dose of norepinephrine running at 0.03 mcg/kg/m. The patient was also started on midodrine Chronic Diastolic CHF. Acute on chronic kidney disease. Patient is currently undergoing daily hemodialysis, last session without his was performed yesterday with a total of 1.8 L of ultrafiltration Metabolic encephalopathy, improved and the patient is adequately communicating at this point in time. Morbid obesity. Chronic atrial fibrillation, with paroxysmal atrial fibrillation/RVR. Rate is under better control with a combination of amiodarone and metoprolol. Patient is on no anticoagulation, rate is controlled Moderately severe aortic stenosis. Obstructive sleep apnea syndrome. History of alcoholism. Hyperlipidemia. Plan Continue BiPAP therapy for now at the same pressures May be able to transition him back to high flow oxygen as the patient is able to tolerate It hemodialysis yesterday with a total of 1.8 L of ultrafiltration Continue IV Zosyn and vancomycin pharmacy to dose specially with his underlying renal failure Daily chest x-rays Restart anticoagulation with Eliquis 2.5 mg twice a day regarding his chronic A. fib Monitor mental status May need a set of blood cultures 2, results are negative Monitor electrolytes Full CODE STATUS and will continue to follow make further recommendations based on his progress Condition is still critical and the patient will be kept in the ICU. Unfortunately, no major interval improvement in the extensive right lung consolidation. Condition is critical, evaluation was done > 30min Time with Patient: Greater than 30
[2023-07-09] MEDS: SENNOSIDES 8.6 MG TAB PO SCH (08:55)
[2023-07-09] MEDS: FOLIC ACID 1 MG TAB PO SCH (08:55)
[2023-07-09] MEDS: PIPERACILLIN-TAZOBACTAM 3.375 GM in SODIUM CHLORIDE 0.9% 100 ML IVPB SCH ×2 (08:56→16:51)
[2023-07-09] MEDS: AMIODARONE 200 MG TAB PO SCH ×2 (08:56→21:49)
[2023-07-09] MEDS: FAMOTIDINE 20 MG/2 ML VIAL IV SCH (08:56)
[2023-07-09] MEDS: METOPROLOL TARTRATE 12.5 MG TAB PO SCH ×2 (08:56→21:49)
[2023-07-09] MEDS ORDERED: VANCOMYCIN 1,750 MG in SODIUM CHLORIDE 0.9% 500 ML 500 ML IVPB ONE (09:00)
--- NOTE | 2023-07-09 09:33 | XR ---
EXAMINATION TYPE: XR chest 1V portable DATE OF EXAM: 07/09/2023 5:22 AM CLINICAL INDICATION:Male, 73 years old with history of bipap requirement; [facility] COMPARISON: Chest radiographs from 07/08/2023. TECHNIQUE: XR chest 1V portable Frontal view of the chest. FINDINGS: Lungs/Pleura: . Similar multifocal airspace opacities worse on the right.. There is no evidence of pl eural effusion, focal consolidation, or pneumothorax. Pulmonary vascularity: Unremarkable. Heart/mediastinum: Cardiomediastinal silhouette is unremarkable. Musculoskeletal: No acute osseous pathology. IMPRESSION: Similar multifocal airspace opacities worse on the right less pronounced on the left.
[2023-07-09] MEDS: APIXABAN 2.5 MG TABLET PO SCH ×2 (11:08→21:37)
--- NOTE | 2023-07-09 11:27 | P.PN ---
Subjective Patient is seen for follow-up for acute kidney injury. Patient was started on hemodialysis on 07/06/2023 due to worsening renal function and respiratory status with volume overload. Urine output about 50-30 ML per hour. Status post UF of 2.2 L with hemodialysis yesterday. Currently awake , maintained on BiPAP Objective - Vital Signs Vital signs: Vital Signs Temp 97.8 F 07/09/23 08:00 Pulse 80 07/09/23 11:15 Resp 24 07/09/23 09:15 BP 107/74 07/09/23 09:15 Pulse Ox 97 07/09/23 08:00 FiO2 50 07/09/23 11:07 Intake & Output 07/08/23 07/09/23 07/09/23 18:59 06:59 18:59 Intake Total 1289.412 297.167 203.73 Output Total 2525 280 70 Balance -1235.588 17.167 133.73 Weight 120.3 kg Intake: IV 230 210 130 KVO 30 110 30 Piperacillin-Tazobactam 3 200 100 100 .375 gm In Sodium Chloride 0.9% 100 ml @ 25 mls/hr IVPB Q8HR [facility] Rx# :[id number] Intake, IV Titration 659.412 87.167 73.73 Amount Norepinephrine 4 mg In 159.412 87.167 73.73 Sodium Chloride 0.9% 250 ml @ 0.03 MCG/KG/MIN 14. 059 mls/hr IV .Q18H4M [facility] Rx#:[id number] Vancomycin 1,750 mg In 500 Sodium Chloride 0.9% 500 ml 500 ml @ 167 mls/hr IVPB ONCE ONE Rx#: [id number] Hemodialysis 400 Output: Urine 325 280 70 Hemodialysis 2200 Other: Voiding Method Indwelling Catheter Indwelling Catheter # Bowel Movements 1 ABP, PAP, CO, CI - Last Documented Arterial Blood Pressure 98/49 - Exam Patient is currently on BiPAP He is awake. Remains confused on and off Examination of the heart S1 and S2 Examination of the lungs bilateral breath sounds are heard Abdomen is soft nontender, obese Examination of lower extremity shows 2+ edema [employer] exam shows patient is able to move all 4 extremities - Labs CBC & Chem 7: 07/09/23 05:41 07/09/23 05:41 Labs: Abnormal Lab Results - Last 24 Hours (Table) 07/09/23 07/09/23 Range/Units 05:41 05:41 WBC 11.3 H (3.8-10.6) k/uL RBC 3.89 L (4.30-5.90) m/uL Hgb 12.6 L (13.0-17.5) gm/dL MCV 103.5 H (80.0-100.0) fL Plt Count 84 L (150-450) k/uL Sodium 135 L (137-145) mmol/L Potassium 3.4 L (3.5-5.1) mmol/L BUN 56 H (9-20) mg/dL Creatinine 2.78 H (0.66-1.25) mg/dL Calcium 7.5 L (8.4-10.2) mg/dL Total Protein 5.1 L (6.3-8.2) g/dL Albumin 2.7 L (3.5-5.0) g/dL Microbiology - Last 24 Hours (Table) 07/07/23 10:56 Blood Culture - Preliminary Blood 07/07/23 10:56 Blood Culture - Preliminary Blood Assessment and Plan Assessment: 1. Acute kidney injury, ATN currently nonoliguric. Component of cardiorenal syndrome as well. Renal function had improved however worse again with volume overload. Started hemodialysis 07/06/2023 2. Hyperkalemia associated with acute kidney injury. No evidence of obstruction on ultrasound. 3. Acute hypercapnic respiratory failure, maintained on BiPAP 4. Chronic kidney disease NKF stage IV with baseline creatinine around 2 mg/dL etiology is likely nephrosclerosis. Previous UA showed negative to trace protein. UA this admission shows 2+ protein. This will be monitored and workup will be performed down the road if persists. 5. Hypercalcemia associated with primary hyperparathyroidism, started on Sensipar last admission. Currently on hold as calcium is low now. Patient was supposed to have nuclear scan of the parathyroid gland performed as outpatient. 6. Moderate pulmonary hypertension 7. Morbid obesity 8. A. fib with RVR currently maintained on amiodarone 9. Large pericardial effusion status post pericardiocentesis of 1 L and then about 200 mL the next day. 10. Hypernatremia associated with free water deficit, resolved Plan: Repeat hemodialysis today and then on 07/11/2023 Patient needs IJ permacath or exchange of current femoral catheter as it has had very poor flows of about 200
[2023-07-09 11:36] LABS: Glucose,Whole Blood 79 mg/dL (70-110)
[2023-07-09] MEDS ORDERED: POTASSIUM CHLORIDE ER 20 MEQ TAB.ER PO STA (12:25)
[2023-07-09 16:49] LABS: Glucose,Whole Blood 78 mg/dL (70-110)
--- NOTE | 2023-07-09 18:05 | P.PN ---
Subjective This is a pleasant 73 years old male with multiple medical problems including Atrial Fibrillation, Heart Failure, COPD, GI Bleed, Hyperlipidemia, Hypertension, chronic kidney disease/CPAP/BIPAP,Hiatal hernia, cateracts, d iverticulosis, CPAP use, Falls, Patient presents because transferred from [facility] for respiratory failure, on arrival he was hypotensive. He was recently in the hospital 06/17-06/19 for hypercalcemia and he was discharged on Sensipar which is thought secondary to hyperparathyroidism. Patient currently lives in the ICU using the BiPAP machine which limits history taken and provide information on the top of that patient is confused but he follows commands appropriately. He can answer some questions like he says he has no pain. He is asking if he can smoke now we explained for him he cannot declines the nicotine patch. Patient currently mildly tachycardic around 108, blood pressure is better 101/81 while he is on pressors. He is on BiPAP machine and he had a temperature of 98. 6. showing creatinine of 5.2 with baseline 2.2-2.9, calcium slightly elevated at 11.5. WBC is 15.7 while on steroids, while rest of CBC is unremarkable TSH is elevated at 4.7 but free T4 is normal [place] 0[place] [address] Ultrasound showing on obstructive uropathy but there is acute cholecystitis with thickened wall. Chest x-ray is suspicious for cardiomegaly and pulmonary edema EKG showing A. fib with rate of 82 b per minute. Patient currently in the ICU on amiodarone drip, Lasix drip at 10 mg per hour , levophed at 0.03 and Solu-Medrol 60 mg, Precedex and IV thiamine 06/28/2023 patient cannot get off the BiPAP overnight and early this morning, he desaturates easily. He remains on amiodarone drip, Lasix drip at 10 mg per hour, and a small dose of levophed at 0.03 and Precedex and thiamine. Distal, not tolerate oral medication and his Eliquis switch to Lovenox 120 mg once daily because of his high creatinine This pH 7.3, pCO2 50 and PaO2 of 76, which is a slightly better than yesterday. Creatinine coming down to 4.4. Ca is also coming down 10.1. WBC still elevated at 13.9 but also patient on steroids. General surgery R following for acute cholecystitis, HIDA scan is ordered, currently on Flagyl and Rocephin 06/29/2023 Patient evaluated today in the ICU. Has been transitioned to airvo. HIDA scan has been placed on hold today as there is findings of large pericardial effusion and cardiothoracic has been consulted. Echocardiogram shows normal LV function, with severe aortic stenosis, mild to moderate TR, mild MR, mild pulmonary hypertension, large pericardial effusion with no clear tamponade. He also had chest xray showing cardiomegaly with mild bibasilar effusions. Mild at the right base. Correlate for CHF. Small amount of atelectasis at the right base. Patient will be going for a pericardial window today. He continues on amiodarone gtt, continues on IV Lasix at 10 mg per hour, he is also on precedex and levophed. Patient is anticoagulated with lovenox. He is on IV ceftriaxone and IV flagyl. White blood cell count today is 13.7, BUN 117, creatinine 3.83. Procalcitonin 0.47. He is afebrile, heart rate in the 110s. Blood pressure marginal 84/57. 06/30/2023 Patient evaluated in the ICU. Status post pericardial window. No plans for HIDA scan of yet. He is more awake and alert today and responding to questions appropriately. He feels his leg swelling is much improved. He remains on airvo high flow oxygen support at 60L 93% FiO2. Saturations around 93%. He remains in and out of a.fib with RVR he has been taken off the amio gtt and placed on IV cardizem. Plans to transition off the lasix gtt today. He is on IV ceftriaxone, IV flagyl, IV solumedrol. He remains on a small dose of levo. Chest xray today showing moderate cardiomegaly with underlying pulmonary vascular congestion, small left greater than right pleural effusions with adjacent atelectasis and or consolidation. Some partially improving aeration of the left base compared to prior exam. Limited echocardiogram today showing small pericardial effusion. 07/01/2023 Patient remains in the ICU, his sitting in chair on nerve or with a flow rate of 60 L/m some saturation of FiO2 of 93%. He denies chest pain, mildly tachypneic. He is obese with mild fluid overload. His blood pressure is 107/58, heart rate 101, A. fib while he is on amiodarone and Cardizem drip Also is a small dose of pressors with Levophed at 0.03. Sodium is elevated at 149 and currently he is on D5W at 50 mL per hour. He does not show signs symptoms of alcohol withdrawal, he is on broad-spectrum antibiotics of Rocephin and Flagyl started by surgery team for suspected gallbladder disease. Currently he denies any abdominal pain. Remains on IV Solu-Medrol 60 mg as well. Creatinine improving down to 4. Cholecystectomy. 3. WBC 11.3. Cardiothoracic surgery followed closely and he is status post pericardial window and drainage of pericardial effusion of 1 L and today more than 200 mL. 07/02/2023 Patient in the ICU, sitting up in chair this morning, he looks more awake comfortable and relaxed however he still in mild respiratory distress and mild tachypnea. His oxygen requirement is less today and his currently on 7 L at high flow nasal cannula. Blood pressure 111/59, slightly tachypneic about 20-24 and he is afebrile. Creatinine improvement 3.6 sodium improving 147, still have mild leukocytosis but also is on steroids. Chest x-ray today I reviewed by myself showing better variation on the right lower zone but increased pleural effusion on the left side with possible adjacent atelectasis. Distal on Solu-Medrol 60 mg, broad-spectrum antibiotics by surgery team for Rocephin and oral Flagyl suspected for acute cholecystitis, patient currently he denies any right upper quadrant abdominal pain or tenderness. Remains on D5W at 75 mL/h. His metoprolol, torsemide on Eliquis remaining on hold currently. Resume the care of the patient 07/07/2023 Patient conditions worsened over the last 2-3 days, Currently he is on BiPAP lethargic and encephalopathic Is mildly tachypneic Chest x-ray showing right-sided pneumonia and pleural effusion Currently covered with Zosyn Started on low-dose pressors with Levophed today. 07/08/2023 Patient remains in the ICU,. Lethargic and weak, he's BiPAP dependent for aspiration pneumonia versus hospital-acquired pneumonia with chest x-ray showing bilateral basal infiltrates. Patient currently covered with Zosyn, IV vancomycin was added today. He is hemodynamically the same, still requiring pressors, blood pressure 111/59. Tachycardic and tachypneic. He is on BiPAP. His creatinine improving 2.9, WBC 12.7, sodium improved to 134, 07/09/2023 Patient seen and examined today in the ICU, his more awake and alert, he is on BiPAP with FiO2 of 50% His chest x-ray showing improvement also while his on IV vancomycin and Zosyn Is getting hemodialysis and his dialysis catheter needs to be changed. 1.8 L has been taken out. Another Hemodialysis will be on 07/11. His home dose of Eliquis 5 mg was started today at 2.5 mg because of his kidney problem for his chronic A. fib. Objective - Vital Signs Vital signs: Vital Signs Temp 97.8 F 07/09/23 08:00 Pulse 86 07/09/23 14:15 Resp 17 07/09/23 14:15 BP 104/63 07/09/23 14:15 Pulse Ox 93 L 07/09/23 14:15 FiO2 50 07/09/23 12:00 Intake & Output 07/08/23 07/09/23 07/09/23 18:59 06:59 18:59 Intake Total 1289.412 297.167 233.73 Output Total 2525 280 170 Balance -1235.588 17.167 63.73 Weight 120.3 kg Intake: IV 230 210 160 KVO 30 110 60 Piperacillin-Tazobactam 3 200 100 100 .375 gm In Sodium Chloride 0.9% 100 ml @ 25 mls/hr IVPB Q8HR [facility] Rx# :[id number] Intake, IV Titration 659.412 87.167 73.73 Amount Norepinephrine 4 mg In 159.412 87.167 73.73 Sodium Chloride 0.9% 250 ml @ 0.03 MCG/KG/MIN 14. 059 mls/hr IV .Q18H4M [facility] Rx#:[id number] Vancomycin 1,750 mg In 500 Sodium Chloride 0.9% 500 ml 500 ml @ 167 mls/hr IVPB ONCE ONE Rx#: [id number] Hemodialysis 400 Output: Urine 325 280 170 Hemodialysis 2200 Other: Voiding Method Indwelling Catheter Indwelling Catheter Indwelling Catheter # Bowel Movements 1 ABP, PAP, CO, CI - Last Documented Arterial Blood Pressure 98/49 - Exam --GENERAL: The patient is awake , lethargic on BiPAP HEENT: Pupils are round and equally reacting to light. EOMI. No scleral icterus. No conjunctival pallor. Normocephalic, atraumatic. No pharyngeal erythema. No thyromegaly. CARDIOVASCULAR: S1 and S2 present. No murmurs, rubs, or gallops. -PULMONARY: Chest is limited air entry on both sides, slightly better than yesterday, no wheezing , no crackles. Mildly tachypneic while he is on BiPAP ABDOMEN: Soft, nontender, nondistended, normoactive bowel sounds. No palpable organomegaly. MUSCULOSKELETAL: No joint swelling or deformity. EXTREMITIES: No cyanosis, clubbing, or pedal edema. NEUROLOGICAL: Gross neurological examination did not reveal any focal deficits. SKIN: No rashes. no petechiae. - Labs CBC & Chem 7: 07/09/23 05:41 07/09/23 05:41 Labs: Abnormal Lab Results - Last 24 Hours (Table) 07/09/23 07/09/23 Range/Units 05:41 05:41 WBC 11.3 H (3.8-10.6) k/uL RBC 3.89 L (4.30-5.90) m/uL Hgb 12.6 L (13.0-17.5) gm/dL MCV 103.5 H (80.0-100.0) fL Plt Count 84 L (150-450) k/uL Sodium 135 L (137-145) mmol/L Potassium 3.4 L (3.5-5.1) mmol/L BUN 56 H (9-20) mg/dL Creatinine 2.78 H (0.66-1.25) mg/dL Calcium 7.5 L (8.4-10.2) mg/dL Total Protein 5.1 L (6.3-8.2) g/dL Albumin 2.7 L (3.5-5.0) g/dL Microbiology - Last 24 Hours (Table) 07/07/23 10:56 Blood Culture - Preliminary Blood 07/07/23 10:56 Blood Culture - Preliminary Blood Assessment and Plan Assessment: Right lower lobe pneumonia Acute hypoxic respiratory failure requiring BiPAP COPD with exacerbation, resolved Acute on chronic diastolic CHF with a preserved ejection fraction Possible acute cholecystitis, versus intra-abdominal infection on broad-spectrum antibiotic Pericardial effusion status post pericardial window for drainage A. fib and RVR Acute kidney injury on chronic kidney disease stage IV Moderate to severe aortic stenosis Hypercalcemia secondary to hyperparathyroidism on treatment Alcohol use disorder Nicotine dependence Chronic hypoxic respiratory failure Morbid obesity with BMI 41.7. Plan: Continue with Zosyn, and IV vancomycin Continue with pressors Pulmonary team on the case General surgery R following for acute cholecystitis, Antibiotic started with Rocephin and Flagyl Several consultants of the case with the pulmonary/critical care team, nep hrology, neurology. Cardiothoracic surgery team Labs and medication were reviewed.. Continue same treatment. Continue with symptomatic treatment. Resume home medication. Monitor labs and vitals. DVT and GI prophylaxis. Further recommendations as per clinical course of the patient DVT prophylaxis: on eliquis GI Prophylaxis: Pepcid PT/OT: differed Prognosis is guarded
[2023-07-09 20:26] LABS: Glucose,Whole Blood 74 mg/dL (70-110)
[2023-07-09] MEDS: ATORVASTATIN 80 MG TAB PO SCH (21:49)
[2023-07-09] MEDS: MONTELUKAST 10 MG TAB PO SCH (21:49)
[2023-07-10] MEDS: PIPERACILLIN-TAZOBACTAM 3.375 GM in SODIUM CHLORIDE 0.9% 100 ML IVPB SCH ×4 (00:38→23:18)
[2023-07-10 05:35] LABS: HCT 39.2 % (39.0-53.0); HGB 12.6 gm/dL (13.0-17.5); Hypochromasia Slight; MCH 33.6 pg (25.0-35.0); MCHC 32.3 g/dL (31.0-37.0); MCV 104.1 fL (80.0-100.0); Macrocytosis Slight; Mean Platelet Volume 14.1; Platelet Count 52 k/uL (150-450); RBC 3.76 m/uL (4.30-5.90); WBC 9.7 k/uL (3.8-10.6)
[2023-07-10 06:05] LABS: ALT 23 U/L (4-49); AST 36 U/L (17-59); African American GFR (CKD) 29 (>60 ml/min/1.73 sqM); Albumin 2.7 g/dL (3.5-5.0); Alkaline Phosphatase 135 U/L (38-126); Anion Gap 11 mmol/L; Blood Urea Nitrogen 40 mg/dL (9-20); Calcium 7.7 mg/dL (8.4-10.2); Carbon Dioxide 23 mmol/L (22-30); Chloride 101 mmol/L (98-107); Glucose 74 mg/dL (74-99); Non-African American GFR(CKD) 25 (>60 ml/min/1.73 sqM); Potassium 3.4 mmol/L (3.5-5.1); Sodium 135 mmol/L (137-145); Total Protein 5.3 g/dL (6.3-8.2)
[2023-07-10 06:27] LABS: Glucose,Whole Blood 66 mg/dL (70-110)
[2023-07-10 07:10] LABS: Glucose,Whole Blood 81 mg/dL (70-110)
[2023-07-10] MEDS: INSULIN ASPART (NovoLOG) 100 UNIT/ML VIAL SQ SCH ×4 (07:24→23:13)
[2023-07-10] MEDS: NOREPINEPHRINE 4 MG in SODIUM CHLORIDE 0.9% 250 ML IV SCH (07:50)
[2023-07-10] MEDS: THIAMINE 100 MG/ML 2 ML VIAL IVP SCH (07:53)
[2023-07-10] MEDS: methylPREDNISolone SOD SUCCI 125 MG/2 ML VIAL IV SCH (07:53)
[2023-07-10] MEDS: IPRATROPIUM-ALBUTEROL 3 ML NEB INHALATION SCH ×4 (08:21→20:10)
--- NOTE | 2023-07-10 09:11 | P.PN ---
Subjective Progress Note Date: 07/10/23 Acute on chronic hypoxic and hypercapnic respiratory failure This is a 73-year-old white male with history of multiple medical problems including chronic congestive heart failure, COPD, chronic kidney disease, chronic hypoxic respiratory failure, obstructive sleep apnea syndrome, maintained on CPAP now patient was transferred from [facility] with 2 days history of increased shortness of breath. I have seen this patient in the past and his last evaluation in the hospital was on 02/16/2023. At that time the patient presented with acute on chronic hypoxic and hypercapnic respiratory failure with congestive heart failure and COPD. He should also had moderate severe aortic stenosis, and morbid obesity as well as chronic atrial fibrillation. Back then the patient was treated mostly aggressively with diuretics, and he was eventually discharged home after almost a week stay in the ICU. This time the patient has a very similar presentation, I saw the patient in the ER, and his is at bedside. Patient is now on BiPAP which I have adjusted to IPAP of 16 and EPAP 6, and he is also on 100% FiO2. ABG is pending, earlier venous ABG showed a pCO2 of 120 and pH of 7.01. After I evaluated the patient, I recommended immediate transfer to the ICU ABG, ultrasound of the chest, I cut down his IV fluid to KVO, started the patient on Lasix drip at 10 mg per hour. And explained to the that the patient may require intubation mechanical ventilation if his condition does not improve much and a short period of time. For low blood pressure may consider using norepinephrine, would definitely avoid using fluids at this point. Labs were reviewed chest x-ray was reviewed his BUN is 99 creatinine is 5.25, and his creatinine only a few days ago was 2.07. Apparently he is developing a worsening picture of chronic kidney disease. Could be cardiorenal. BNP level is 14,900 Reevaluated today on 06/27/2023, patient remains in the ICU, remains on Lasix drip at 10 mg per hour, amiodarone 0.5 mg/m for atrial fibrillation/RVR which she developed last night patient does have chronic history of atrial fibrillation remains on norepinephrine at 0.04 mcg/kg/m, he is on Precedex at 0.2 mcg/kg/hr, IV fluid at 20 mL per hour in the form of 0.9 normal saline. Blood pressure is noted to be borderline. Hence patient had a left subclavian triple-lumen catheter placed and a left radial arterial line placement. Repeat ABG this morning continues to show significant metabolic and respiratory acidosis pO2 of 79 pCO2 62 pH of 7.21, potassium is up to 5.19, patient was given 1 amp of bicarb for his acidosis. His BUN is 107 creatinine 5.17, slightly better compared to yesterday, patient is being evaluated by nephrology. Remains on BiPAP at 16/6/75% FiO2. And overall his clinical status is critically ill/marginal. Patient is definitely high risk for intubation mechanical ventilation, the patient and his are both aware of this, however at this point I will hold on mechanically ventilated the patient. We'll continue BiPAP, continue Lasix drip, and continue pressors patient may eventually require hemodialysis. Ultrasound of the chest showed small bilateral pleural effusions left more so than right, the left sided pocket is not large enough to consider safe left sided thoracentesis. Patient was reevaluated today on 06/2023, remains in the ICU, remains on Lasix drip at 10 mg per hour, remains on BiPAP at 12/6/75%. Patient is still requiring Precedex at 0.6 mcg/kg/h, norepinephrine at 0.03 mcg/kg/m. Patient is negative balance over the last 24 hours about 2 L. And he is steadily improving but remains critically ill, and simply requiring pressors. ABG showed a pO2 of 76 pCO2 of 50 pH of 7.34, significantly improved compared to his initial ABG on admission where his pCO2 was in the 120 range. Patient remains on Rocephin and Flagyl, his CT of the abdomen raised the possibility of acute cholecystitis, but clinically I do not see any evidence of cholecystitis, the patient has no pain or tenderness in the right upper quadrant. Being considered for a HIDA scan. CT of the brain came back negative for acute process. WBC count today is 13.9 hemoglobin 15.4. Platelets are 226, basic metabolic profile is normal BUN is 111 creatinine is down to 4.44 improving in spite of aggressive diuresis on this patient. If her enzymes are basically normal. Chest x-ray this morning showed cardiomegaly, pulmonary vascular congestion, bilateral pleural effusions, however based on ultrasound, the left-sided pleural effusion was not large enough to consider safe thoracentesis Progress note dated 06/29/2023. 73-year-old male seen in the intensive care unit, room 262. The patient is scheduled to have a pericardial window done today, June 29. Briefly, the patient was admitted to the hospital June 26, for CHF, acute mental status changes, and a pericardial effusion. The patient was admitted to the intensive care unit, on the day of admission. The patient's been between BiPAP, with settings of 12/6, and 75%, or AIRVO, at 60 L/m with an FiO2 of 80%. The patient is currently on norepinephrine at 2 mcg/m, dexmedetomidine at 0.3 mcg/kg/h, amiodarone at 0.5 mg/m, a Lasix drip at 10 mg an hour, and saline at KVO. White count is 13.7, hemoglobin 16, hematocrit 48.9, and a platelet count of 203,000. Sodium 143, potassium 4.1, chlorides 102, CO2 28, BUN 117, and creatinine 3.83. Pro-calcitonin level is 0.47, from yesterday. Chest x-ray shows cardiomegaly, with bibasilar effusions. Progress note dated 06/30/2023. 73-year-old male with a history of pericardial effusion. The patient had a bedside procedure done yesterday, to drain the pericardial effusion. About 1 L of fluid was removed. Currently, he's on AIRVO, at 60 L/m, with an FiO2 of 94%. He continues on Lasix drip at 10 mg an hour, norepinephrine at 7.1 mcg/m, amiodarone at 0.5 mg/m, and a Cardizem drip of 7.5 mg an hour. The patient spent some time on BiPAP as well. White count 15.1, hemoglobin 15, hematocrit 47.6, and platelet count 182,000. Sodium 147, potassium 3.3, chlorides 105, CO2 28, BUN 122, and creatinine 3.72. Glucose 193. Calcium is 9.0. Chest x-ray shows a pericardial drain. There is some volume loss of the left lower lobe, and small bilateral pleural effusions. Progress note dated 07/01/2023. 73-year-old male with history of pericardial effusion. The patient is postop day #2, status post pericardial window drainage catheter. He seen today in room 262. He continues on either AIRVO, at 50 L/m, with an FiO2 of 75%, or BiPAP, with settings of 12/6, and 85%. The patient continues on norepinephrine at 3.5 mcg/m, D5W at 50 mL an hour, and Cardizem drip at 7.5 mg an hour. The patient's pericardial catheter, was drained yesterday, and 235 mL of fluid was removed. White count 11.3, hemoglobin 14.3, hematocrit 44.7, and platelet count 136,000. Sodium 148, potassium 3.7, chlorides 107, CO2 27, BUN 129, and creatinine 3.82. Glucose 170. Calcium is 8.6. Chest x-ray shows cardiomegaly, and pulmonary vascular congestion, small bilateral effusions. Progress note dated 07/02/2023. 73-year-old male with history of pericardial effusion. The patient is postop day #3, status post pericardial window with drainage catheter. He seen today in room 262. Currently, he is on AIRVO, at 35 L/m with an FiO2 of 50%. The patient is getting D5W at 75 mL an hour. Over the last couple of days, the fluid removed from the pericardial space, has been very limited. White count is 10.9, hemoglobin 13.4, hematocrit 3.2, and platelet count 97,000. Sodium 147, potassium 3.6, chlorides 108, CO2 29, BUN 132, and creatinine 3.69. Glucose 2:1 5, calcium is 8.2. Chest x-ray shows cardiomegaly, and mild CHF with pulmonary vascular congestion. Progress note dated 07/03/2023. 73-year-old male with a history of pericardial effusion, postop day #4, status post pericardial window, which drainage catheter. The catheter has subsequently been removed. The patient is seen today in room 253. The patient is currently on AIRVO, with settings of 35 L/m, and an FiO2 of 60%. He's not receiving any IV fluids. Solu-Medrol will be discontinued. He apparently spent a few hours on BiPAP last night, with settings of 12/6, at the percent. The patient has been downgraded, and can be transferred out of the ICU. Laboratory data today includes a white count 12.2, hemoglobin 13.1, hematocrit 42, and platelet count 86,000. Sodium 143, potassium 3.7, chlorides 105, CO2 26, BUN 120, and creatinine 3.43. Calcium is 7.9. Culture data is pending or negative. Chest x-ray shows findings of CHF, and cardiomegaly. Small to moderate pleural effusi on, left greater than right. Progress note dated 07/04/2023. 73-year-old male, seen today in room 253. He is postop day #5, status post pericardial window, with insertion of a drainage catheter. Catheter has been removed. Currently, the patient is on BiPAP, with settings of 12/6, and 50%. Alternatively, the patient can be on AIRVO, at 35 L/m, with an FiO2 of 70%. Lasix has been added twice a day by nephrology. I believe that to be appropriate. The patient's not receiving any IV fluids. Labs today include sodium 141, potassium 3.8, chlorides 105, CO2 28, BUN 116, and creatinine 2.84. Calcium is 7.9. Progress note dated 07/05/2023. 73-year-old male seen today in room 253. He's postop day #6, status post pericardial window, insertion of a drainage catheter. Catheter has been re moved. The patient is currently on BiPAP, with settings of 12/6, and 50%. He's not on any IV fluids. We will check a pro-calcitonin level today. The patient could not tolerate AIRVO yesterday. Current labs include a white count 16.5, hemoglobin 16, hematocrit 52, and platelet count 98,000. Sodium 140, potassium 4, chlorides 101, CO2 27, BUN 118, and creatinine 2.87. Glucose 124. Chest x-ray shows mild fluid overload, and a potentially developing right lower lobe airspace infiltrate. Progress note dated 07/06/2023. 73-year-old male seen in 253. The patient continues in the intensive care unit. Today is postoperative day #7, status post pericardial window, and insertion of a pericardial drainage catheter. The patient's pericardial drainage catheter has subsequently been removed. This patient 1 day looks better, and the next day looks worse. Today he looks worse. He continues on BiPAP, his been pretty much BiPAP dependent, for the last couple days, with settings of 12/6, and 50%. He could not tolerate the AIRVO. In addition, because of worsening renal function, hemodialysis catheter will be placed, and the patient will undergo hemodialysis. His pro-calcitonin level was 0.41. He's currently on Zosyn. He seems much less alert today. White count 17.9, hemoglobin 15.2, hematocrit 51, and platelet count 100,000. Sodium 137, potassium 4.2, chlorides 100, CO2 23, a nion gap 14, BUN 127, creatinine 3.12. Chest x-ray reveals worsening infiltrate in the right lung, and bilateral pleural effusions. Also the upper lobe vessels are enlarged. On today's evaluation of 07/07/2023, the patient is being seen for a follow-up. The patient is known to have multiple medical problems and comorbidities. Is known to have COPD, CHF, chronic kidney disease And chronic hypoxic respiratory failure along with obstructive sleep apnea maintained on CPAP therapy on outpatient basis. He also suffers from chronic atrial fibrillation. The patient presented to us with an acute on top of chronic kidney failure, acute on top of chronic hypoxic and hypercapnic respiratory failure and he was found to have a large pericardial effusion. The patient underwent a pericardial window. He continued to be hypoxic throughout the hospitalization requiring high flow oxygen alternating with a BiPAP. He was back and forth to the intensive care unit. Currently is back in the ICU with hypoxic respiratory failure. He was unable to tolerate the high flow oxygen and currently is on BiPAP at a pressure of 12/6 with an FiO2 of 50%. Chest x-ray showing improvement in the previously described cardiomegaly. However, there is an extensive right lung consolidation consistent with pneumonia. Small pleural effusion on the left is also seen. The patient is currently undergoing hemodialysis. He underwent his first session of hemodialysis yesterday and the second session is being done this morning with a goal of ultrafiltration of 2.5 L. BUN is at 100 with a creatinine of 3.05 and a sodium level is at 135. The white cycles of 12.7 with a hemoglobin of 15.2. The patient is covered with IV Zosyn as a broad-spectrum antibiotic coverage. He is currently on norepinephrine running at 0.04 g pretty kilogram per minutes. Urine output is dropped and the patient is producing approximately 50 mL an hour. Overall fluid balance is +500 mL over the past 24 hours. Based on his underlying hypotension, he was given a bolus of 1000 mL of normal saline yesterday. I did with his echocardiogram and it showed a large pericardial effusion and this was obtained preoperatively. Never theless, the patient is a preserved LV function, he has severe aortic stenosis with a peak gradient of 76 and then medium gradient of 43 with mild regurgitation. His current cardiac rhythm is atrial fibrillation. Slightly tachycardic. Maintains on amiodarone 200 mg by mouth twice a day. He is also metoprolol 12.5 mg by mouth twice a day. No anticoagulants at this point in time. He is lethargic yet arousable. He is following simple commands. No massive edema in the lower extremities. He has a dialysis catheter in his right femoral vein. 07/08 2023, the patient is being seen in follow-up. The patient is critically ill with hypoxic respiratory failure secondary to bilateral pneumonia more extensive on the right. A repeat chest x-ray was done today and shows persistent consolidation of the right right lung more so on the right lower lobe. The patient is currently on a BiPAP at a pressure of 12 are 6 with an FiO2 of 50%. He was transitioned to high flow oxygen at 50 L yesterday and utilizes for several hours and overnight he went back on BiPAP at the current setting. Current pulse ox is at 91-92%. In terms of antibiotic coverage, the patient's is still on IV Zosyn. He is afebrile. Hemodynamically, the patient remains on norepinephrine which is running at 0.04 mcg/kg/m. Cardiac rhythm is atrial fibrillation. No cultures are available for the time being. The white cycles of 12.7 which is comparable to yesterday with a hemoglobin of 15.6 and a platelet count of 91. BUN is at 80 with a creatinine of 2.9 and sodium levels of 134 with a potassium level of 4.3. The patient is undergoing another session of hemodialysis this morning. The goal is also infiltrate in for a total of 1-2 L. Yesterday, he was INFILTRATED for a total of 2 L. Note that the patient has also severe aortic stenosis with a preserved LV function. No significant edema lower extremities. No agitation. No confusion. No altered mentation. He is an atrial fibrillation. Rate is controlled. No anticoagulants for now. No signs of any focal neurological deficit at this point in time. 07/09/2023, seeing the patient for a follow-up. The patient is currently sitting up on a recliner and he is still utilizing his BiPAP at a pressure of 12/6 with an FiO2 of 50%. Is awake and alert and communicating. He is still tachypneic while on the BiPAP. His generating adequate tidal volumes which are above 600 mL's. The chest x-ray still showing a dense consolidation of the right lung consistent with persistent pneumonia. Hospital-acquired pneumonia was suspected on this patient and the patient was given a combination of Zosyn and vancomycin was also added yesterday to broaden the antibiotic coverage. On today's evaluation, the blood WBC count is 11.3 with a hemoglobin 12.6, BUN is a 56 with a creatinine of 2.7 and a sodium level is at 135. The patient's last hemodialysis session was yesterday with a total of 1.8 L of ultrafiltration. He did have a bowel movement earlier. No significant abdominal distention for now. I try to transition this patient to a high flow oxygen system which she failed and he prefers to stay on the BiPAP. Unfortunately, no significant progress in terms of his right lung consolidation/pneumonia. Left lung is clear on today's chest x-ray. Oral intake is quite diminished and minimal at this point in time. No agitation. No confusion. His cardiac rhythm is controlled a chest fibrillation. No anticoagulants for now. 07/10/2023, the patient is sitting up on a chair and is currently on high flow oxygen with an FiO2 of 60% with a flow of 40 L. Note that he was able to tolerate high flow oxygen yesterday for an extended period of time. Overnight, he went back on the BiPAP upon his request. This morning, he was taken off the BiPAP again. His chest x-ray still showing consolidation of the right lung related to pneumonia. No significant sputum production. He remains afebrile. He remains on a combination of Zosyn and vancomycin. The patient underwent hemodialysis yesterday. He was able to tolerate hemodialysis without any significant hypotension. He is requiring a very low-dose of norepinephrine which is running at 0.01 mcg/kg/m. Otherwise, his labs are stable. Hemoglobin is at 12.6 which is stable with a white cell count of 9.7. BUN is at 40 with a creatinine of 2.4. His tolerating diet. There is some limited interval improvement in the right lung consolidation. Vancomycin trough is at 13.7. His cardiac rhythm is A. fib. Anticoagulation was also started yesterday and the patient is currently on Eliquis 2.5 mg twice a day. No other significant events overnight. He is cooperative and communicating. No altered mentation. Objective - Vital Signs Vital signs: Vital Signs Temp 97.4 F L 07/10/23 04:00 Pulse 75 07/10/23 08:37 Resp 22 07/10/23 08:37 BP 85/57 07/10/23 07:45 Pulse Ox 94 L 07/10/23 08:19 FiO2 50 07/10/23 08:24 Intake & Output 07/09/23 07/10/23 07/10/23 18:59 06:59 18:59 Intake Total 1063.474 725.932 Output Total 430 2090 0 Balance 633.474 -1364.068 0 Weight 121 kg Intake: IV 300 100 KVO 100 Piperacillin-Tazobactam 3 200 100 .375 gm In Sodium Chloride 0.9% 100 ml @ 25 mls/hr IVPB Q8HR GERTRUDIS Rx# :[id number] Intake, IV Titration 163.474 25.932 Amount Norepinephrine 4 mg In 163.474 25.932 Sodium Chloride 0.9% 250 ml @ 0.03 MCG/KG/MIN 14. 059 mls/hr IV .[id number] GERTRUDIS Rx#:[id number] Oral 600 200 Hemodialysis 400 Output: Urine 430 105 0 Hemodialysis 1985 Other: Voiding Method Indwelling Catheter Indwelling Catheter # Bowel Movements 3 ABP, PAP, CO, CI - Last Documented Arterial Blood Pressure 98/49 - Exam No acute distress, currently on oxygen 40 L with an FiO2 of 60% HEENT examination is grossly unremarkable. Neck supple. Full range of motion. No adenopathy thyromegaly or neck vein distention. Cardiovascular examination reveals regular rhythm rate. S1-S2 normal. No S3 or S4. There is a harsh systolic ejection murmur over the left sternal border and apex grade 4/6 Lungs reveal scattered rhonchi. Breath sounds equal bilaterally. Abdomen soft bowel sounds are heard. No masses or tenderness. Extremities are intact. No cyanosis clubbing or edema. Skin is without rash or lesion. Neurologically, the patient is awake and alert and the patient does not have any focal neurological deficit. Cranial nerves are essentially intact. - Labs CBC & Chem 7: 07/10/23 05:02 07/10/23 05:02 Labs: Abnormal Lab Results - Last 24 Hours (Table) 07/10/23 07/10/23 07/10/23 Range/Units 05:02 05:02 06:25 RBC 3.76 L (4.30-5.90) m/uL Hgb 12.6 L (13.0-17.5) gm/dL MCV 104.1 H (80.0-100.0) fL Plt Count 52 L (150-450) k/uL Sodium 135 L (137-145) mmol/L Potassium 3.4 L (3.5-5.1) mmol/L BUN 40 H (9-20) mg/dL Creatinine 2.47 H (0.66-1.25) mg/dL POC Glucose (mg/dL) 66 L (70-110) mg/dL Calcium 7.7 L (8.4-10.2) mg/dL Alkaline Phosphatase 135 H (38-126) U/L Total Protein 5.3 L (6.3-8.2) g/dL Albumin 2.7 L (3.5-5.0) g/dL Microbiology - Last 24 Hours (Table) 06/29/23 17:30 Acid Fast Bacilli Smear - Preliminary Pericardial Fluid Acid Fast Bacilli Culture - Preliminary 07/07/23 10:56 Blood Culture - Preliminary Blood 07/07/23 10:56 Blood Culture - Preliminary Blood Assessment and Plan Plan: Acute on chronic hypoxemic and hypercapnic respiratory failure. Respiratory failure is multifactorial. Initially the patient a large pericardial effusion probably related to chronic kidney disease. The patient underwent pericardial window. Currently he has significant consolidation of the right lung highly suspicious for a pneumonia. Note that this pulmonary infiltration developed during his current hospital stay. Initial chest exit time of admission showed no significant pneumonias. At the same time, he has small bilateral pleural effusions. Follow-up chest x-ray from today shows no interval change in the extensive right lung consolidation and there is some infiltration left lung ba se. The patient is preferring BiPAP overnight high flow oxygen and will continue the BiPAP at the same setting for now. Is currently on IV Zosyn that was started on 07/05/2023. Vancomycin was also added on 07/08/2023. Patient seems to be less dependent on a BiPAP. This morning he is on high flow oxygen of 40 L with an FiO2 of 60%. Chest x-ray still showing persistent consolidation of the right lung although slightly improved. Pericardial effusion, S/P pericardial window, 06/29/2023, POD # 11, cultures are negative, cytology from the pericardial fluid was also negative or any malignancy. Hospital-acquired right lung pneumonia and the patient is currently on IV Zosyn and vancomycin, no significant interval change on the chest x-ray findings. Unable to collect a sputum sample Episodic hypotension, currently on a low-dose of norepinephrine running at 0.01 mcg/kg/m. The patient was also started on midodrine Chronic Diastolic CHF. Acute on chronic kidney disease. Patient is currently undergoing daily hemodialysis, last session without his was performed yesterday Metabolic encephalopathy, improved and the patient is adequately communicating at this point in time. Morbid obesity. Chronic atrial fibrillation, with paroxysmal atrial fibrillation/RVR. Rate is under better control with a combination of amiodarone and metoprolol. Patient is on Eliquis Moderately severe aortic stenosis. Obstructive sleep apnea syndrome. History of alcoholism. Hyperlipidemia. Plan Continue high flow oxygen hemodialysis today Monitor blood pressure wean off norepinephrine Continue IV Zosyn and vancomycin pharmacy to dose specially with his underlying renal failure Daily chest x-rays Continue anticoagulation with Eliquis 2.5 mg twice a day regarding his chronic A. fib Monitor mental status May need a set of blood cultures 2, results are negative Monitor electrolytes Continue midodrine at a dose of 10 mg by mouth 3 times a day Full CODE STATUS and will continue to follow make further recommendations based on his progress Condition is still critical and the patient will be kept in the ICU. Condition is critical, evaluation was done > 30min Time with Patient: Greater than 30
[2023-07-10] MEDS: APIXABAN 2.5 MG TABLET PO SCH ×2 (09:24→20:10)
[2023-07-10] MEDS ORDERED: FUROSEMIDE 10 MG/ML 10 ML VIAL IV STA (09:26)
[2023-07-10] MEDS ORDERED: POTASSIUM CHLORIDE ER 20 MEQ TAB.ER PO STA (09:27)
[2023-07-10] MEDS: SENNOSIDES 8.6 MG TAB PO SCH (09:37)
[2023-07-10] MEDS: MIDODRINE 5 MG TAB PO SCH ×3 (09:38→18:40)
[2023-07-10] MEDS: METOPROLOL TARTRATE 12.5 MG TAB PO SCH ×2 (09:38→20:18)
[2023-07-10] MEDS: FOLIC ACID 1 MG TAB PO SCH (09:38)
[2023-07-10] MEDS: AMIODARONE 200 MG TAB PO SCH ×2 (09:38→20:20)
[2023-07-10] MEDS: FAMOTIDINE 20 MG/2 ML VIAL IV SCH (09:38)
--- NOTE | 2023-07-10 09:52 | CDI ---
Documentation Clarification Form Date: 07/10/2023 09:14:41 AM From: Aida Nielson RN, CCDS Phone: [phone] Admit Date: 06/26/2023 03:21:00 PM Patient Name: Hemant Carr Visit Number: [id number] Discharge Date: ATTENTION: The Clinical Documentation Specialists (CDI) and [facility] Coding Staff appreciate your assistance in clarifying documentation. Please respond to the clarification below the line at the bottom and electronically sign. The CDI & [facility] Coding staff will review the response and follow-up if needed. Please note: Queries are made part of the Legal Health Record. If you have any questions, please contact the author of this message via ITS. Dr. Shannon E Sheet Your patient was a transfer from outside facility for respiratory failure with pneumonia on history of COPD CKD and CHF. Based on this information and the findings below, is there an additional diagnosis that is clinically appropriate for this patient? Patient history/risk factors: Atrial Fibrillation, Heart Failure, COPD, GI Bleed, Hyperlipidemia, Hypertension, Renal Disease, Sleep Apnea/CPAP/BIPAP, Former smoker Clinical Indicators: 73-year-old male clear for evaluation of severe shortness of breath. Patient is currently on BiPAP secondary to respiratory distress. Patient is accepted in transfer from outside facility for respiratory failure with mental status changes, pneumonia. 06/26 VS 83/69 74 12 82% BIPAP, 98/54 84 24 93.9 FIO2 100% BIPAP 06/24 Labs: WBC 13.1 Neutrophils 11.0, K+ 5.2 Cl 96, bun 99 Cr 5.25, Cl 11.5, Phosphorus 8.8 Mg+ 2.6 BNP 90807 06/26 Chest US: Bilateral pleural effusion left greater than right. 06/26 Abdomen/US: Dilated gallbladder with thickened wall suggested correlated for signs and symptoms of acute cholecystitis. No evidence for obstructive uropathy. 06/26 Pulmonary consult: Chest x-ray: image reviewed (As noted in HPI chest x- ray showing cardiomegaly, suspect a large left pleural effusion, and interstitial edema, underlying pneumonia is felt to be less likely but not entirely ruled out). Treatment: ICU/Telemetry monitoring Levophed drip per orders 06/26-06/23/29 Vancomycin 2,000 MG IVPB Once 12/27 then 1750 MG IVPB Once ([id number] Zosyn 3.375 MG IVPB Q8HRS IVPB 07/05-07/10 Solumedrol 60 MG IV Q 6 HRS (Titrate per orders) Monitor Labs/chest x-ray per orders Is there an additional diagnosis that is clinically appropriate for this patient? [x ] Sepsis ruled in present on admission [ ] Sepsis ruled out [ ] Unable to determine [ ] Other, please specify (Template Last Reviewed: August 2022) pt has leukocytosis and tachypnea and tachycarida with evidence of infection on abx MTDD
--- NOTE | 2023-07-10 10:17 | P.PN ---
Subjective Patient is seen in follow-up for acute kidney injury on chronic kidney disease. Started on hemodialysis 07/06/2023. Urine output 5-10 mL an hour. On BiPAP. Vital signs are stable. On Levophed. General: Resting in bed. HEENT: On BiPAP. LUNGS: Scattered rhonchi. HEART: Rate and Rhythm are regular. ABDOMEN: Nontender. EXTREMITITES: Trace edema. Objective - Vital Signs Vital signs: Vital Signs Temp 97.4 F L 07/10/23 04:00 Pulse 75 07/10/23 08:37 Resp 22 07/10/23 08:37 BP 85/57 07/10/23 07:45 Pulse Ox 94 L 07/10/23 08:19 FiO2 50 07/10/23 08:24 Intake & Output 07/09/23 07/10/23 07/10/23 18:59 06:59 18:59 Intake Total 1063.474 725.932 Output Total 430 2090 0 Balance 633.474 -1364.068 0 Weight 121 kg Intake: IV 300 100 KVO 100 Piperacillin-Tazobactam 3 200 100 .375 gm In Sodium Chloride 0.9% 100 ml @ 25 mls/hr IVPB Q8HR [facility] Rx# :[id number] Intake, IV Titration 163.474 25.932 Amount Norepinephrine 4 mg In 163.474 25.932 Sodium Chloride 0.9% 250 ml @ 0.03 MCG/KG/MIN 14. 059 mls/hr IV .Q18H4M [facility] Rx#:[id number] Oral 600 200 Hemodialysis 400 Output: Urine 430 105 0 Hemodialysis 1985 Other: Voiding Method Indwelling Catheter Indwelling Catheter # Bowel Movements 3 ABP, PAP, CO, CI - Last Documented Arterial Blood Pressure 98/49 - Labs CBC & Chem 7: 07/10/23 05:02 07/10/23 05:02 Labs: Abnormal Lab Results - Last 24 Hours (Table) 07/10/23 07/10/23 07/10/23 Range/Units 05:02 05:02 06:25 RBC 3.76 L (4.30-5.90) m/uL Hgb 12.6 L (13.0-17.5) gm/dL MCV 104.1 H (80.0-100.0) fL Plt Count 52 L (150-450) k/uL Sodium 135 L (137-145) mmol/L Potassium 3.4 L (3.5-5.1) mmol/L BUN 40 H (9-20) mg/dL Creatinine 2.47 H (0.66-1.25) mg/dL POC Glucose (mg/dL) 66 L (70-110) mg/dL Calcium 7.7 L (8.4-10.2) mg/dL Alkaline Phosphatase 135 H (38-126) U/L Total Protein 5.3 L (6.3-8.2) g/dL Albumin 2.7 L (3.5-5.0) g/dL Microbiology - Last 24 Hours (Table) 06/29/23 17:30 Acid Fast Bacilli Smear - Preliminary Pericardial Fluid Acid Fast Bacilli Culture - Preliminary 07/07/23 10:56 Blood Culture - Preliminary Blood 07/07/23 10:56 Blood Culture - Preliminary Blood Assessment and Plan Plan: Assessment: 1. Acute kidney injury secondary to ATN secondary to cardiorenal syndrome. Started on hemodialysis 07/06/2023. Has right femoral catheter. No hydronephrosis noted on kidney ultrasound. 2. Chronic kidney disease stage IV with baseline creatinine near 2 secondary to nephrosclerosis. 3. Acute on chronic diastolic CHF with severe aortic stenosis and mild to moderate tricuspid regurgitation. 4. Hypokalemia from poor intake. 5. Large pericardial effusion status post pericardiocentesis this admission with over 1 L drained. 6. Hypercalcemia with concern for underlying primary hyperparathyroidism. Sensipar currently held as calciums on the lower side. Workup from June 2023 showed PTH of 52.6, calcitriol level of 53, vitamin D level of 58.6, Eliseo level of 25. No Bence-Franks proteins were noted and urine immunofixation. 7. Hypernatremia from lack of oral water intake. Resolved. Plan: Hemodialysis tomorrow. Femoral catheter to be exchanged today. Wean Levophed. Maintain midodrine. Lasix 80 mg IV once today. Continue to monitor renal function and urine output. Replace potassium.
--- NOTE | 2023-07-10 10:23 | XR ---
EXAMINATION TYPE: XR chest 1V portable DATE OF EXAM: 07/10/2023 Comparison: 07/09/2023 Clinical History: 73-year-old male BiPAP requirement Findings: Heart mildly enlarged. Hyperinflation. Focal consolidation right mid to lower lung similar to minimal ly improving. Aeration continues to improve on the left. No sizable pleural effusion. Impression: 1. Similar mild cardiomegaly. 2. Aeration continues to improve on the left. Ongoing extensive consolidation in the right lung but w ith minimal improvement.
[2023-07-10 11:24] LABS: Glucose,Whole Blood 80 mg/dL (70-110)
[2023-07-10 16:28] LABS: Glucose,Whole Blood 81 mg/dL (70-110)
--- NOTE | 2023-07-10 19:14 | P.PN ---
Subjective This is a pleasant 73 years old male with multiple medical problems including Atrial Fibrillation, Heart Failure, COPD, GI Bleed, Hyperlipidemia, Hypertension, chronic kidney disease/CPAP/BIPAP,Hiatal hernia, cateracts, d iverticulosis, CPAP use, Falls, Patient presents because transferred from [facility] for respiratory failure, on arrival he was hypotensive. He was recently in the hospital 06/17-06/19 for hypercalcemia and he was discharged on Sensipar which is thought secondary to hyperparathyroidism. Patient currently lives in the ICU using the BiPAP machine which limits history taken and provide information on the top of that patient is confused but he follows commands appropriately. He can answer some questions like he says he has no pain. He is asking if he can smoke now we explained for him he cannot declines the nicotine patch. Patient currently mildly tachycardic around 108, blood pressure is better 101/81 while he is on pressors. He is on BiPAP machine and he had a temperature of 98. 6. showing creatinine of 5.2 with baseline 2.2-2.9, calcium slightly elevated at 11.5. WBC is 15.7 while on steroids, while rest of CBC is unremarkable TSH is elevated at 4.7 but free T4 is normal at 0[place] [address] Ultrasound showing on obstructive uropathy but there is acute cholecystitis with thickened wall. Chest x-ray is suspicious for cardiomegaly and pulmonary edema EKG showing A. fib with rate of 82 b per minute. Patient currently in the ICU on amiodarone drip, Lasix drip at 10 mg per hour , levophed at 0.03 and Solu-Medrol 60 mg, Precedex and IV thiamine 06/28/2023 patient cannot get off the BiPAP overnight and early this morning, he desaturates easily. He remains on amiodarone drip, Lasix drip at 10 mg per hour, and a small dose of levophed at 0.03 and Precedex and thiamine. Distal, not tolerate oral medication and his Eliquis switch to Lovenox 120 mg once daily because of his high creatinine This pH 7.3, pCO2 50 and PaO2 of 76, which is a slightly better than yesterday. Creatinine coming down to 4.4. Ca is also coming down 10.1. WBC still elevated at 13.9 but also patient on steroids. General surgery R following for acute cholecystitis, HIDA scan is ordered, currently on Flagyl and Rocephin 06/29/2023 Patient evaluated today in the ICU. Has been transitioned to airvo. HIDA scan has been placed on hold today as there is findings of large pericardial effusion and cardiothoracic has been consulted. Echocardiogram shows normal LV function, with severe aortic stenosis, mild to moderate TR, mild MR, mild pulmonary hypertension, large pericardial effusion with no clear tamponade. He also had chest xray showing cardiomegaly with mild bibasilar effusions. Mild at the right base. Correlate for CHF. Small amount of atelectasis at the right base. Patient will be going for a pericardial window today. He continues on amiodarone gtt, continues on IV Lasix at 10 mg per hour, he is also on precedex and levophed. Patient is anticoagulated with lovenox. He is on IV ceftriaxone and IV flagyl. White blood cell count today is 13.7, BUN 117, creatinine 3.83. Procalcitonin 0.47. He is afebrile, heart rate in the 110s. Blood pressure marginal 84/57. 06/30/2023 Patient evaluated in the ICU. Status post pericardial window. No plans for HIDA scan of yet. He is more awake and alert today and responding to questions appropriately. He feels his leg swelling is much improved. He remains on airvo high flow oxygen support at 60L 93% FiO2. Saturations around 93%. He remains in and out of a.fib with RVR he has been taken off the amio gtt and placed on IV cardizem. Plans to transition off the lasix gtt today. He is on IV ceftriaxone, IV flagyl, IV solumedrol. He remains on a small dose of levo. Chest xray today showing moderate cardiomegaly with underlying pulmonary vascular congestion, small left greater than right pleural effusions with adjacent atelectasis and or consolidation. Some partially improving aeration of the left base compared to prior exam. Limited echocardiogram today showing small pericardial effusion. 07/01/2023 Patient remains in the ICU, his sitting in chair on nerve or with a flow rate of 60 L/m some saturation of FiO2 of 93%. He denies chest pain, mildly tachypneic. He is obese with mild fluid overload. His blood pressure is 107/58, heart rate 101, A. fib while he is on amiodarone and Cardizem drip Also is a small dose of pressors with Levophed at 0.03. Sodium is elevated at 149 and currently he is on D5W at 50 mL per hour. He does not show signs symptoms of alcohol withdrawal, he is on broad-spectrum antibiotics of Rocephin and Flagyl started by surgery team for suspected gallbladder disease. Currently he denies any abdominal pain. Remains on IV Solu-Medrol 60 mg as well. Creatinine improving down to 4. Cholecystectomy. 3. WBC 11.3. Cardiothoracic surgery followed closely and he is status post pericardial window and drainage of pericardial effusion of 1 L and today more than 200 mL. 07/02/2023 Patient in the ICU, sitting up in chair this morning, he looks more awake comfortable and relaxed however he still in mild respiratory distress and mild tachypnea. His oxygen requirement is less today and his currently on 7 L at high flow nasal cannula. Blood pressure 111/59, slightly tachypneic about 20-24 and he is afebrile. Creatinine improvement 3.6 sodium improving 147, still have mild leukocytosis but also is on steroids. Chest x-ray today I reviewed by myself showing better variation on the right lower zone but increased pleural effusion on the left side with possible adjacent atelectasis. Distal on Solu-Medrol 60 mg, broad-spectrum antibiotics by surgery team for Rocephin and oral Flagyl suspected for acute cholecystitis, patient currently he denies any right upper quadrant abdominal pain or tenderness. Remains on D5W at 75 mL/h. His metoprolol, torsemide on Eliquis remaining on hold currently. Resume the care of the patient 07/07/2023 Patient conditions worsened over the last 2-3 days, Currently he is on BiPAP lethargic and encephalopathic Is mildly tachypneic Chest x-ray showing right-sided pneumonia and pleural effusion Currently covered with Zosyn Started on low-dose pressors with Levophed today. 07/08/2023 Patient remains in the ICU,. Lethargic and weak, he's BiPAP dependent for aspiration pneumonia versus hospital-acquired pneumonia with chest x-ray showing bilateral basal infiltrates. Patient currently covered with Zosyn, IV vancomycin was added today. He is hemodynamically the same, still requiring pressors, blood pressure 111/59. Tachycardic and tachypneic. He is on BiPAP. His creatinine improving 2.9, WBC 12.7, sodium improved to 134, 07/09/2023 Patient seen and examined today in the ICU, his more awake and alert, he is on BiPAP with FiO2 of 50% His chest x-ray showing improvement also while his on IV vancomycin and Zosyn Is getting hemodialysis and his dialysis catheter needs to be changed. 1.8 L has been taken out. Another Hemodialysis will be on 07/11. His home dose of Eliquis 5 mg was started today at 2.5 mg because of his kidney problem for his chronic A. fib. 07/10/2023 Patient remains in the ICU, he is slightly more awake today, he is on high flow nasal cannula with FiO2 of 58% and a rate of 45 L/m His stoma at the tachycardic and tachypneic but improving. His creatinine 2.4 and received extra dose of IV Lasix today WBC is back to reference range 9.7, sodium 135. Chest x-ray showing slight improvement of bilateral infiltrates. Patient remains on IV vancomycin and Zosyn His on Eliquis 2.5 mg for A. fib Also he is on pressors with Levophed Objective - Vital Signs Vital signs: Vital Signs Temp 97.7 F 07/10/23 08:00 Pulse 90 07/10/23 11:00 Resp 22 07/10/23 11:00 BP 111/74 07/10/23 11:00 Pulse Ox 99 07/10/23 11:00 FiO2 50 07/10/23 11:00 Intake & Output 07/09/23 07/10/23 07/10/23 18:59 06:59 18:59 Intake Total 1063.474 725.932 300 Output Total 430 2090 45 Balance 633.474 -1364.068 255 Weight 121 kg 121 kg Intake: IV 300 100 100 KVO 100 Piperacillin-Tazobactam 3 200 100 100 .375 gm In Sodium Chloride 0.9% 100 ml @ 25 mls/hr IVPB Q8HR [facility] Rx# :[id number] Intake, IV Titration 163.474 25.932 Amount Norepinephrine 4 mg In 163.474 25.932 Sodium Chloride 0.9% 250 ml @ 0.03 MCG/KG/MIN 14. 059 mls/hr IV .Q18H4M [facility] Rx#:[id number] Oral 600 200 200 Hemodialysis 400 Output: Urine 430 105 45 Hemodialysis 1985 Other: Voiding Method Indwelling Catheter Indwelling Catheter Indwelling Catheter # Bowel Movements 3 ABP, PAP, CO, CI - Last Documented Arterial Blood Pressure 98/49 - Exam --GENERAL: The patient is awake , lethargic on BiPAP HEENT: Pupils are round and equally reacting to light. EOMI. No scleral icterus. No conjunctival pallor. Normocephalic, atraumatic. No pharyngeal erythema. No thyromegaly. CARDIOVASCULAR: S1 and S2 present. No murmurs, rubs, or gallops. -PULMONARY: Chest is limited air entry on both sides, slightly better than yesterday, no wheezing , no crackles. Mildly tachypneic while he is on BiPAP ABDOMEN: Soft, nontender, nondistended, normoactive bowel sounds. No palpable organomegaly. MUSCULOSKELETAL: No joint swelling or deformity. EXTREMITIES: No cyanosis, clubbing, or pedal edema. NEUROLOGICAL: Gross neurological examination did not reveal any focal deficits. SKIN: No rashes. no petechiae. - Labs CBC & Chem 7: 07/10/23 05:02 07/10/23 05:02 Labs: Abnormal Lab Results - Last 24 Hours (Table) 07/10/23 07/10/23 07/10/23 Range/Units 05:02 05:02 06:25 RBC 3.76 L (4.30-5.90) m/uL Hgb 12.6 L (13.0-17.5) gm/dL MCV 104.1 H (80.0-100.0) fL Plt Count 52 L (150-450) k/uL Sodium 135 L (137-145) mmol/L Potassium 3.4 L (3.5-5.1) mmol/L BUN 40 H (9-20) mg/dL Creatinine 2.47 H (0.66-1.25) mg/dL POC Glucose (mg/dL) 66 L (70-110) mg/dL Calcium 7.7 L (8.4-10.2) mg/dL Alkaline Phosphatase 135 H (38-126) U/L Total Protein 5.3 L (6.3-8.2) g/dL Albumin 2.7 L (3.5-5.0) g/dL Microbiology - Last 24 Hours (Table) 06/29/23 17:30 Acid Fast Bacilli Smear - Preliminary Pericardial Fluid Acid Fast Bacilli Culture - Preliminary 07/07/23 10:56 Blood Culture - Preliminary Blood 07/07/23 10:56 Blood Culture - Preliminary Blood Assessment and Plan Assessment: Right lower lobe pneumonia Acute hypoxic respiratory failure requiring BiPAP COPD with exacerbation, resolved Acute on chronic diastolic CHF with a preserved ejection fraction Possible acute cholecystitis, versus intra-abdominal infection on broad-spectrum antibiotic Pericardial effusion status post pericardial window for drainage A. fib and RVR Acute kidney injury on chronic kidney disease stage IV Moderate to severe aortic stenosis Hypercalcemia secondary to hyperparathyroidism on treatment Alcohol use disorder Nicotine dependence Chronic hypoxic respiratory failure Morbid obesity with BMI 41.7. Plan: Continue with Zosyn, and IV vancomycin Continue with pressors Pulmonary team on the case General surgery R following for acute cholecystitis, Antibiotic started with Rocephin and Flagyl Several consultants of the case with the pulmonary/critical care team, nephrology, neurology. Cardiothoracic surgery team Labs and medication were reviewed.. Continue same treatment. Continue with symptomatic treatment. Resume home medication. Monitor labs and vitals. DVT and GI prophylaxis. Further recommendations as per clinical course of the patient DVT prophylaxis: on eliquis GI Prophylaxis: Pepcid PT/OT: differed Prognosis is guarded
[2023-07-10] MEDS: ATORVASTATIN 80 MG TAB PO SCH (20:20)
[2023-07-10] MEDS: MONTELUKAST 10 MG TAB PO SCH (20:21)
[2023-07-10] MEDS ORDERED: VANCOMYCIN 1,750 MG in SODIUM CHLORIDE 0.9% 500 ML 500 ML IVPB ONE (21:00)
[2023-07-10 23:58] LABS: Glucose,Whole Blood 70 mg/dL (70-110)
[2023-07-11 00:36] LABS: Glucose,Whole Blood 111 mg/dL (70-110)
[2023-07-11] MEDS: NOREPINEPHRINE 4 MG in SODIUM CHLORIDE 0.9% 250 ML IV SCH ×3 (04:33→22:21)
[2023-07-11] MEDS: ALBUTEROL NEBULIZED 2.5 MG/3 ML INHALATION PRN (04:39)
[2023-07-11] MEDS: MIDODRINE 5 MG TAB PO SCH ×3 (05:54→16:58)
[2023-07-11 06:01] LABS: Basophils % (A) 0 %; Eosinophils # (A) 0.4 k/uL (0-0.7); Eosinophils % (A) 5 %; HCT 42.1 % (39.0-53.0); Hypochromasia Moderate; Lymphocytes # (A) 0.7 k/uL (1.0-4.8); Lymphocytes % (A) 8 %; MCH 32.4 pg (25.0-35.0); MCHC 30.9 g/dL (31.0-37.0); MCV 105.1 fL (80.0-100.0); Macrocytosis Moderate; Mean Platelet Volume 13.3; Monocytes # (A) 0.6 k/uL (0-1.0); Monocytes % (A) 7 %; Neutrophils # (A) 6.3 k/uL (1.3-7.7); Neutrophils % (A) 76 %; RBC 4.01 m/uL (4.30-5.90); RDW 13.8 % (11.5-15.5); WBC 8.3 k/uL (3.8-10.6)
[2023-07-11 06:26] LABS: Platelet Count 51 k/uL (150-450)
[2023-07-11 06:36] LABS: Glucose,Whole Blood 72 mg/dL (70-110)
[2023-07-11] MEDS: INSULIN ASPART (NovoLOG) 100 UNIT/ML VIAL SQ SCH ×4 (06:43→20:42)
[2023-07-11 07:04] LABS: African American GFR (CKD) 23 (>60 ml/min/1.73 sqM); Anion Gap 11 mmol/L; Blood Urea Nitrogen 46 mg/dL (9-20); Calcium 8.2 mg/dL (8.4-10.2); Carbon Dioxide 25 mmol/L (22-30); Chloride 103 mmol/L (98-107); Glucose 82 mg/dL (74-99); Non-African American GFR(CKD) 20 (>60 ml/min/1.73 sqM); Potassium 3.7 mmol/L (3.5-5.1); Sodium 139 mmol/L (137-145)
[2023-07-11] MEDS: IPRATROPIUM-ALBUTEROL 3 ML NEB INHALATION SCH ×4 (08:42→19:49)
--- NOTE | 2023-07-11 08:53 | P.PN ---
Subjective Progress Note Date: 07/11/23 Acute on chronic hypoxic and hypercapnic respiratory failure This is a 73-year-old white male with history of multiple medical problems including chronic congestive heart failure, COPD, chronic kidney disease, chronic hypoxic respiratory failure, obstructive sleep apnea syndrome, maintained on CPAP now patient was transferred from [facility] with 2 days history of increased shortness of breath. I have seen this patient in the past and his last evaluation in the hospital was on 02/16/2023. At that time the patient presented with acute on chronic hypoxic and hypercapnic respiratory failure with congestive heart failure and COPD. He should also had moderate severe aortic stenosis, and morbid obesity as well as chronic atrial fibrillation. Back then the patient was treated mostly aggressively with diuretics, and he was eventually discharged home after almost a week stay in the ICU. This time the patient has a very similar presentation, I saw the patient in the ER, and his is at bedside. Patient is now on BiPAP which I have adjusted to IPAP of 16 and EPAP 6, and he is also on 100% FiO2. ABG is pending, earlier venous ABG showed a pCO2 of 120 and pH of 7.01. After I evaluated the patient, I recommended immediate transfer to the ICU ABG, ultrasound of the chest, I cut down his IV fluid to KVO, started the patient on Lasix drip at 10 mg per hour. And explained to the that the patient may require intubation mechanical ventilation if his condition does not improve much and a short period of time. For low blood pressure may consider using norepinephrine, would definitely avoid using fluids at this point. Labs were reviewed chest x-ray was reviewed his BUN is 99 creatinine is 5.25, and his creatinine only a few days ago was 2.07. Apparently he is developing a worsening picture of chronic kidney disease. Could be cardiorenal. BNP level is 14,900 Reevaluated today on 06/27/2023, patient remains in the ICU, remains on Lasix drip at 10 mg per hour, amiodarone 0.5 mg/m for atrial fibrillation/RVR which she developed last night patient does have chronic history of atrial fibrillation remains on norepinephrine at 0.04 mcg/kg/m, he is on Precedex at 0.2 mcg/kg/hr, IV fluid at 20 mL per hour in the form of 0.9 normal saline. Blood pressure is noted to be borderline. Hence patient had a left subclavian triple-lumen catheter placed and a left radial arterial line placement. Repeat ABG this morning continues to show significant metabolic and respiratory acidosis pO2 of 79 pCO2 62 pH of 7.21, potassium is up to 5.19, patient was given 1 amp of bicarb for his acidosis. His BUN is 107 creatinine 5.17, slightly better compared to yesterday, patient is being evaluated by nephrology. Remains on BiPAP at 16/6/75% FiO2. And overall his clinical status is critically ill/marginal. Patient is definitely high risk for intubation mechanical ventilation, the patient and his are both aware of this, however at this point I will hold on mechanically ventilated the patient. We'll continue BiPAP, continue Lasix drip, and continue pressors patient may eventually require hemodialysis. Ultrasound of the chest showed small bilateral pleural effusions left more so than right, the left sided pocket is not large enough to consider safe left sided thoracentesis. Patient was reevaluated today on 06/2023, remains in the ICU, remains on Lasix drip at 10 mg per hour, remains on BiPAP at 12/6/75%. Patient is still requiring Precedex at 0.6 mcg/kg/h, norepinephrine at 0.03 mcg/kg/m. Patient is negative balance over the last 24 hours about 2 L. And he is steadily improving but remains critically ill, and simply requiring pressors. ABG showed a pO2 of 76 pCO2 of 50 pH of 7.34, significantly improved compared to his initial ABG on admission where his pCO2 was in the 120 range. Patient remains on Rocephin and Flagyl, his CT of the abdomen raised the possibility of acute cholecystitis, but clinically I do not see any evidence of cholecystitis, the patient has no pain or tenderness in the right upper quadrant. Being considered for a HIDA scan. CT of the brain came back negative for acute process. WBC count today is 13.9 hemoglobin 15.4. Platelets are 226, basic metabolic profile is normal BUN is 111 creatinine is down to 4.44 improving in spite of aggressive diuresis on this patient. If her enzymes are basically normal. Chest x-ray this morning showed cardiomegaly, pulmonary vascular congestion, bilateral pleural effusions, however based on ultrasound, the left-sided pleural effusion was not large enough to consider safe thoracentesis Progress note dated 06/29/2023. 73-year-old male seen in the intensive care unit, room 262. The patient is scheduled to have a pericardial window done today, June 29. Briefly, the patient was admitted to the hospital June 26, for CHF, acute mental status changes, and a pericardial effusion. The patient was admitted to the intensive care unit, on the day of admission. The patient's been between BiPAP, with settings of 12/6, and 75%, or AIRVO, at 60 L/m with an FiO2 of 80%. The patient is currently on norepinephrine at 2 mcg/m, dexmedetomidine at 0.3 mcg/kg/h, amiodarone at 0.5 mg/m, a Lasix drip at 10 mg an hour, and saline at KVO. White count is 13.7, hemoglobin 16, hematocrit 48.9, and a platelet count of 203,000. Sodium 143, potassium 4.1, chlorides 102, CO2 28, BUN 117, and creatinine 3.83. Pro-calcitonin level is 0.47, from yesterday. Chest x-ray shows cardiomegaly, with bibasilar effusions. Progress note dated 06/30/2023. 73-year-old male with a history of pericardial effusion. The patient had a bedside procedure done yesterday, to drain the pericardial effusion. About 1 L of fluid was removed. Currently, he's on AIRVO, at 60 L/m, with an FiO2 of 94%. He continues on Lasix drip at 10 mg an hour, norepinephrine at 7.1 mcg/m, amiodarone at 0.5 mg/m, and a Cardizem drip of 7.5 mg an hour. The patient spent some time on BiPAP as well. White count 15.1, hemoglobin 15, hematocrit 47.6, and platelet count 182,000. Sodium 147, potassium 3.3, chlorides 105, CO2 28, BUN 122, and creatinine 3.72. Glucose 193. Calcium is 9.0. Chest x-ray shows a pericardial drain. There is some volume loss of the left lower lobe, and small bilateral pleural effusions. Progress note dated 07/01/2023. 73-year-old male with history of pericardial effusion. The patient is postop day #2, status post pericardial window drainage catheter. He seen today in room 262. He continues on either AIRVO, at 50 L/m, with an FiO2 of 75%, or BiPAP, with settings of 12/6, and 85%. The patient continues on norepinephrine at 3.5 mcg/m, D5W at 50 mL an hour, and Cardizem drip at 7.5 mg an hour. The patient's pericardial catheter, was drained yesterday, and 235 mL of fluid was removed. White count 11.3, hemoglobin 14.3, hematocrit 44.7, and platelet count 136,000. Sodium 148, potassium 3.7, chlorides 107, CO2 27, BUN 129, and creatinine 3.82. Glucose 170. Calcium is 8.6. Chest x-ray shows cardiomegaly, and pulmonary vascular congestion, small bilateral effusions. Progress note dated 07/02/2023. 73-year-old male with history of pericardial effusion. The patient is postop day #3, status post pericardial window with drainage catheter. He seen today in room 262. Currently, he is on AIRVO, at 35 L/m with an FiO2 of 50%. The patient is getting D5W at 75 mL an hour. Over the last couple of days, the fluid removed from the pericardial space, has been very limited. White count is 10.9, hemoglobin 13.4, hematocrit 3.2, and platelet count 97,000. Sodium 147, potassium 3.6, chlorides 108, CO2 29, BUN 132, and creatinine 3.69. Glucose 2:1 5, calcium is 8.2. Chest x-ray shows cardiomegaly, and mild CHF with pulmonary vascular congestion. Progress note dated 07/03/2023. 73-year-old male with a history of pericardial effusion, postop day #4, status post pericardial window, which drainage catheter. The catheter has subsequently been removed. The patient is seen today in room 253. The patient is currently on AIRVO, with settings of 35 L/m, and an FiO2 of 60%. He's not receiving any IV fluids. Solu-Medrol will be discontinued. He apparently spent a few hours on BiPAP last night, with settings of 12/6, at the percent. The patient has been downgraded, and can be transferred out of the ICU. Laboratory data today includes a white count 12.2, hemoglobin 13.1, hematocrit 42, and platelet count 86,000. Sodium 143, potassium 3.7, chlorides 105, CO2 26, BUN 120, and creatinine 3.43. Calcium is 7.9. Culture data is pending or negative. Chest x-ray shows findings of CHF, and cardiomegaly. Small to moderate pleural effusi on, left greater than right. Progress note dated 07/04/2023. 73-year-old male, seen today in room 253. He is postop day #5, status post pericardial window, with insertion of a drainage catheter. Catheter has been removed. Currently, the patient is on BiPAP, with settings of 12/6, and 50%. Alternatively, the patient can be on AIRVO, at 35 L/m, with an FiO2 of 70%. Lasix has been added twice a day by nephrology. I believe that to be appropriate. The patient's not receiving any IV fluids. Labs today include sodium 141, potassium 3.8, chlorides 105, CO2 28, BUN 116, and creatinine 2.84. Calcium is 7.9. Progress note dated 07/05/2023. 73-year-old male seen today in room 253. He's postop day #6, status post pericardial window, insertion of a drainage catheter. Catheter has been re moved. The patient is currently on BiPAP, with settings of 12/6, and 50%. He's not on any IV fluids. We will check a pro-calcitonin level today. The patient could not tolerate AIRVO yesterday. Current labs include a white count 16.5, hemoglobin 16, hematocrit 52, and platelet count 98,000. Sodium 140, potassium 4, chlorides 101, CO2 27, BUN 118, and creatinine 2.87. Glucose 124. Chest x-ray shows mild fluid overload, and a potentially developing right lower lobe airspace infiltrate. Progress note dated 07/06/2023. 73-year-old male seen in 253. The patient continues in the intensive care unit. Today is postoperative day #7, status post pericardial window, and insertion of a pericardial drainage catheter. The patient's pericardial drainage catheter has subsequently been removed. This patient 1 day looks better, and the next day looks worse. Today he looks worse. He continues on BiPAP, his been pretty much BiPAP dependent, for the last couple days, with settings of 12/6, and 50%. He could not tolerate the AIRVO. In addition, because of worsening renal function, hemodialysis catheter will be placed, and the patient will undergo hemodialysis. His pro-calcitonin level was 0.41. He's currently on Zosyn. He seems much less alert today. White count 17.9, hemoglobin 15.2, hematocrit 51, and platelet count 100,000. Sodium 137, potassium 4.2, chlorides 100, CO2 23, a nion gap 14, BUN 127, creatinine 3.12. Chest x-ray reveals worsening infiltrate in the right lung, and bilateral pleural effusions. Also the upper lobe vessels are enlarged. On today's evaluation of 07/07/2023, the patient is being seen for a follow-up. The patient is known to have multiple medical problems and comorbidities. Is known to have COPD, CHF, chronic kidney disease And chronic hypoxic respiratory failure along with obstructive sleep apnea maintained on CPAP therapy on outpatient basis. He also suffers from chronic atrial fibrillation. The patient presented to us with an acute on top of chronic kidney failure, acute on top of chronic hypoxic and hypercapnic respiratory failure and he was found to have a large pericardial effusion. The patient underwent a pericardial window. He continued to be hypoxic throughout the hospitalization requiring high flow oxygen alternating with a BiPAP. He was back and forth to the intensive care unit. Currently is back in the ICU with hypoxic respiratory failure. He was unable to tolerate the high flow oxygen and currently is on BiPAP at a pressure of 12/6 with an FiO2 of 50%. Chest x-ray showing improvement in the previously described cardiomegaly. However, there is an extensive right lung consolidation consistent with pneumonia. Small pleural effusion on the left is also seen. The patient is currently undergoing hemodialysis. He underwent his first session of hemodialysis yesterday and the second session is being done this morning with a goal of ultrafiltration of 2.5 L. BUN is at 100 with a creatinine of 3.05 and a sodium level is at 135. The white cycles of 12.7 with a hemoglobin of 15.2. The patient is covered with IV Zosyn as a broad-spectrum antibiotic coverage. He is currently on norepinephrine running at 0.04 g pretty kilogram per minutes. Urine output is dropped and the patient is producing approximately 50 mL an hour. Overall fluid balance is +500 mL over the past 24 hours. Based on his underlying hypotension, he was given a bolus of 1000 mL of normal saline yesterday. I did with his echocardiogram and it showed a large pericardial effusion and this was obtained preoperatively. Never theless, the patient is a preserved LV function, he has severe aortic stenosis with a peak gradient of 76 and then medium gradient of 43 with mild regurgitation. His current cardiac rhythm is atrial fibrillation. Slightly tachycardic. Maintains on amiodarone 200 mg by mouth twice a day. He is also metoprolol 12.5 mg by mouth twice a day. No anticoagulants at this point in time. He is lethargic yet arousable. He is following simple commands. No massive edema in the lower extremities. He has a dialysis catheter in his right femoral vein. 07/08 2023, the patient is being seen in follow-up. The patient is critically ill with hypoxic respiratory failure secondary to bilateral pneumonia more extensive on the right. A repeat chest x-ray was done today and shows persistent consolidation of the right right lung more so on the right lower lobe. The patient is currently on a BiPAP at a pressure of 12 are 6 with an FiO2 of 50%. He was transitioned to high flow oxygen at 50 L yesterday and utilizes for several hours and overnight he went back on BiPAP at the current setting. Current pulse ox is at 91-92%. In terms of antibiotic coverage, the patient's is still on IV Zosyn. He is afebrile. Hemodynamically, the patient remains on norepinephrine which is running at 0.04 mcg/kg/m. Cardiac rhythm is atrial fibrillation. No cultures are available for the time being. The white cycles of 12.7 which is comparable to yesterday with a hemoglobin of 15.6 and a platelet count of 91. BUN is at 80 with a creatinine of 2.9 and sodium levels of 134 with a potassium level of 4.3. The patient is undergoing another session of hemodialysis this morning. The goal is also infiltrate in for a total of 1-2 L. Yesterday, he was INFILTRATED for a total of 2 L. Note that the patient has also severe aortic stenosis with a preserved LV function. No significant edema lower extremities. No agitation. No confusion. No altered mentation. He is an atrial fibrillation. Rate is controlled. No anticoagulants for now. No signs of any focal neurological deficit at this point in time. 07/09/2023, seeing the patient for a follow-up. The patient is currently sitting up on a recliner and he is still utilizing his BiPAP at a pressure of 12/6 with an FiO2 of 50%. Is awake and alert and communicating. He is still tachypneic while on the BiPAP. His generating adequate tidal volumes which are above 600 mL's. The chest x-ray still showing a dense consolidation of the right lung consistent with persistent pneumonia. Hospital-acquired pneumonia was suspected on this patient and the patient was given a combination of Zosyn and vancomycin was also added yesterday to broaden the antibiotic coverage. On today's evaluation, the blood WBC count is 11.3 with a hemoglobin 12.6, BUN is a 56 with a creatinine of 2.7 and a sodium level is at 135. The patient's last hemodialysis session was yesterday with a total of 1.8 L of ultrafiltration. He did have a bowel movement earlier. No significant abdominal distention for now. I try to transition this patient to a high flow oxygen system which she failed and he prefers to stay on the BiPAP. Unfortunately, no significant progress in terms of his right lung consolidation/pneumonia. Left lung is clear on today's chest x-ray. Oral intake is quite diminished and minimal at this point in time. No agitation. No confusion. His cardiac rhythm is controlled a chest fibrillation. No anticoagulants for now. 07/10/2023, the patient is sitting up on a chair and is currently on high flow oxygen with an FiO2 of 60% with a flow of 40 L. Note that he was able to tolerate high flow oxygen yesterday for an extended period of time. Overnight, he went back on the BiPAP upon his request. This morning, he was taken off the BiPAP again. His chest x-ray still showing consolidation of the right lung related to pneumonia. No significant sputum production. He remains afebrile. He remains on a combination of Zosyn and vancomycin. The patient underwent hemodialysis yesterday. He was able to tolerate hemodialysis without any significant hypotension. He is requiring a very low-dose of norepinephrine which is running at 0.01 mcg/kg/m. Otherwise, his labs are stable. Hemoglobin is at 12.6 which is stable with a white cell count of 9.7. BUN is at 40 with a creatinine of 2.4. His tolerating diet. There is some limited interval improvement in the right lung consolidation. Vancomycin trough is at 13.7. His cardiac rhythm is A. fib. Anticoagulation was also started yesterday and the patient is currently on Eliquis 2.5 mg twice a day. No other significant events overnight. He is cooperative and communicating. No altered mentation. Pro-[id number], the patient is on high flow oxygen at 40 L with an FiO2 of 50%. Overnight he was started on a BiPAP. Doing well on Zosyn and vancomycin. Chest x-ray shows persistent consolidation of the right lower lobe. He is on no pressors and he is awake and alert. No hemodialysis was done yesterday. Possibly today and this was discussed with nephrology. The white cell count is at 8.3, hemoglobin is at 13 and a platelet count is at 51. Urine is 46 with a creatinine of 3 and a sodium levels of 199. Tolerating diet. No nausea or vomiting. No emesis. No altered mentation. He remains in atrial fibrillation. The rate is controlled. Anticoagulation was started yesterday with Eliquis 2.5 mg twice a day. Will monitor his platelet count. Vancomycin trough is being monitored. Remains on Zosyn. No other significant issues otherwise for now. We'll try to attempt to wean down FiO2 as the patient's pulse ox is 96%. Urine output is passes's an hour and the patient remains oliguric. He is having difficulties with his dialysis catheter. Vascular surgery was involved again and the dialysis catheter will be placed by vascular surgery and hopefully to be followed up by another session of hemodialysis. He was started on hemodialysis on 07/06/2023. Given Lasix with limited success in terms of urine output. Objective - Vital Signs Vital signs: Vital Signs Temp 97.8 F 07/11/23 04:00 Pulse 79 07/11/23 08:42 Resp 16 07/11/23 07:00 BP 82/60 07/11/23 07:00 Pulse Ox 97 07/11/23 08:42 FiO2 50 07/11/23 08:42 Intake & Output 07/10/23 07/11/23 07/11/23 18:59 06:59 18:59 Intake Total 590.23 526 Output Total 160 165 10 Balance 430.23 361 -10 Weight 121 kg Intake: IV 175 25 Piperacillin-Tazobactam 3 175 25 .375 gm In Sodium Chloride 0.9% 100 ml @ 25 mls/hr IVPB Q8HR [facility] Rx# :[id number] Intake, IV Titration 15.23 501 Amount Norepinephrine 4 mg In 15.23 Sodium Chloride 0.9% 250 ml @ 0.03 MCG/KG/MIN 14. 059 mls/hr IV .[id number] [facility] Rx#:[id number] Vancomycin 1,750 mg In 501 Sodium Chloride 0.9% 500 ml 500 ml @ 167 mls/hr IVPB ONCE ONE Rx#: [id number] Oral 400 Output: Urine 160 165 10 Other: Voiding Method Indwelling Catheter Indwelling Catheter ABP, PAP, CO, CI - Last Documented Arterial Blood Pressure 98/49 - Exam No acute distress, currently on oxygen 40 L with an FiO2 of 50% HEENT examination is grossly unremarkable. Neck supple. Full range of motion. No adenopathy thyromegaly or neck vein distention. Cardiovascular examination reveals regular rhythm rate. S1-S2 normal. No S3 or S4. There is a harsh systolic ejection murmur over the left sternal border and apex grade 4/6 Lungs reveal scattered rhonchi. Breath sounds equal bilaterally. Abdomen soft bowel sounds are heard. No masses or tenderness. Extremities are intact. No cyanosis clubbing or edema. Skin is without rash or lesion. Neurologically, the patient is awake and alert and the patient does not have any focal neurological deficit. Cranial nerves are essentially intact. - Labs CBC & Chem 7: 07/11/23 05:23 07/11/23 05:23 Labs: Abnormal Lab Results - Last 24 Hours (Table) 07/11/23 07/11/23 07/11/23 Range/Units 00:34 05:23 05:23 RBC 4.01 L (4.30-5.90) m/uL MCV 105.1 H (80.0-100.0) fL MCHC 30.9 L (31.0-37.0) g/dL Plt Count 51 L (150-450) k/uL Lymphocytes # 0.7 L (1.0-4.8) k/uL BUN 46 H (9-20) mg/dL Creatinine 3.02 H (0.66-1.25) mg/dL POC Glucose (mg/dL) 111 H (70-110) mg/dL Calcium 8.2 L (8.4-10.2) mg/dL Microbiology - Last 24 Hours (Table) 06/29/23 17:30 Fungal Culture - Preliminary Pericardial Fluid 07/07/23 10:56 Blood Culture - Preliminary Blood 07/07/23 10:56 Blood Culture - Preliminary Blood Assessment and Plan Plan: Acute on chronic hypoxemic and hypercapnic respiratory failure. Respiratory failure is multifactorial. Initially the patient a large pericardial effusion probably related to chronic kidney disease. The patient underwent pericardial window. Currently he has significant consolidation of the right lung highly suspicious for a pneumonia. Note that this pulmonary infiltration developed during his current hospital stay. Initial chest exit time of admission showed no significant pneumonias. At the same time, he has small bilateral pleural effusions. Follow-up chest x-ray from today shows no interval change in the extensive right lung consolidation and there is some infiltration left lung base. The patient is preferring BiPAP overnight high flow oxygen and will continue the BiPAP at the same setting for now. Is currently on IV Zosyn that was started on 07/05/2023. Vancomycin was also added on 07/08/2023. Patient seems to be less dependent on a BiPAP. This morning he is on high flow oxygen of 40 L with an FiO2 of 50%. Chest x-ray still from yesterday showing persistent consolidation of the right lower lobe. Clinically more stable. Able to come off the BiPAP for longer period of time. Utilizing it mainly overnight. Pericardial effusion, S/P pericardial window, 06/29/2023, POD # 12, cultures are negative, cytology from the pericardial fluid was also negative or any malignancy. Hospital-acquired right lung pneumonia and the patient is currently on IV Zosyn and vancomycin, no significant interval change on the chest x-ray findings. Unable to collect a sputum sample Episodic hypotension, currently off pressors .The patient was also started on midodrine Chronic Diastolic CHF. Acute on chronic kidney disease. Patient is currently undergoing daily hemodialysis, last session without his was performed yesterday Metabolic encephalopathy, improved and the patient is adequately communicating at this point in time. Morbid obesity. Chronic atrial fibrillation, with paroxysmal atrial fibrillation/RVR. Rate is under better control with a combination of amiodarone and metoprolol. Patient is on Eliquis Moderately severe aortic stenosis. Obstructive sleep apnea syndrome. History of alcoholism. Hyperlipidemia. Plan Continue high flow oxygen, titrate FiO2 hemodialysis today following a catheter exchange Monitor blood pressure wean off norepinephrine, currently off pressors Continue IV Zosyn and vancomycin pharmacy to dose specially with his underlying renal failure Daily chest x-rays Monitor platelet count Continue anticoagulation with Eliquis 2.5 mg twice a day regarding his chronic A. fib Monitor mental status May need a set of blood cultures 2, results are negative Monitor electrolytes Continue midodrine at a dose of 10 mg by mouth 3 times a day Full CODE STATUS and will continue to follow make further recommendations based on his progress Condition is still critical and the patient will be kept in the ICU. Condition is critical, evaluation was done > 30min Time with Patient: Greater than 30
[2023-07-11] MEDS ORDERED: LIDOCAINE 1% INJ 10MG/ML (20 ML MDV) ONE (08:54)
[2023-07-11] MEDS ORDERED: HEPARIN SODIUM 1,000 UN/ML (10ML VL) MISCELLANE ONE (08:55)
[2023-07-11] MEDS: PIPERACILLIN-TAZOBACTAM 3.375 GM in SODIUM CHLORIDE 0.9% 100 ML IVPB SCH ×2 (09:41→16:58)
[2023-07-11] MEDS: FAMOTIDINE 20 MG/2 ML VIAL IV SCH (09:42)
[2023-07-11] MEDS: AMIODARONE 200 MG TAB PO SCH ×2 (09:42→19:56)
[2023-07-11] MEDS: FOLIC ACID 1 MG TAB PO SCH (09:42)
[2023-07-11] MEDS: METOPROLOL TARTRATE 12.5 MG TAB PO SCH ×3 (09:43→22:28)
[2023-07-11] MEDS: SENNOSIDES 8.6 MG TAB PO SCH (09:44)
--- NOTE | 2023-07-11 10:43 | P.PN ---
Subjective Patient is seen in follow-up for acute kidney injury on chronic kidney disease. Started on hemodialysis 07/06/2023. Urine output 10-15 mL an hour. On BiPAP. Vital signs are stable. Off Levophed. General: Resting in bed. HEENT: On BiPAP. LUNGS: Scattered rhonchi. HEART: Rate and Rhythm are regular. ABDOMEN: Nontender. EXTREMITITES: Trace edema. Objective - Vital Signs Vital signs: Vital Signs Temp 97.8 F 07/11/23 04:00 Pulse 86 07/11/23 08:49 Resp 16 07/11/23 07:00 BP 82/60 07/11/23 07:00 Pulse Ox 97 07/11/23 08:42 FiO2 50 07/11/23 08:42 Intake & Output 07/10/23 07/11/23 07/11/23 18:59 06:59 18:59 Intake Total 590.23 526 Output Total 160 165 10 Balance 430.23 361 -10 Weight 121 kg Intake: IV 175 25 Piperacillin-Tazobactam 3 175 25 .375 gm In Sodium Chloride 0.9% 100 ml @ 25 mls/hr IVPB Q8HR [facility] Rx# :[id number] Intake, IV Titration 15.23 501 Amount Norepinephrine 4 mg In 15.23 Sodium Chloride 0.9% 250 ml @ 0.03 MCG/KG/MIN 14. 059 mls/hr IV .Q18H4M [facility] Rx#:[id number] Vancomycin 1,750 mg In 501 Sodium Chloride 0.9% 500 ml 500 ml @ 167 mls/hr IVPB ONCE ONE Rx#: [id number] Oral 400 Output: Urine 160 165 10 Other: Voiding Method Indwelling Catheter Indwelling Catheter ABP, PAP, CO, CI - Last Documented Arterial Blood Pressure 98/49 - Labs CBC & Chem 7: 07/11/23 05:23 07/11/23 05:23 Labs: Abnormal Lab Results - Last 24 Hours (Table) 07/11/23 07/11/23 07/11/23 Range/Units 00:34 05:23 05:23 RBC 4.01 L (4.30-5.90) m/uL MCV 105.1 H (80.0-100.0) fL MCHC 30.9 L (31.0-37.0) g/dL Plt Count 51 L (150-450) k/uL Lymphocytes # 0.7 L (1.0-4.8) k/uL BUN 46 H (9-20) mg/dL Creatinine 3.02 H (0.66-1.25) mg/dL POC Glucose (mg/dL) 111 H (70-110) mg/dL Calcium 8.2 L (8.4-10.2) mg/dL Microbiology - Last 24 Hours (Table) 06/29/23 17:30 Fungal Culture - Preliminary Pericardial Fluid 07/07/23 10:56 Blood Culture - Preliminary Blood 07/07/23 10:56 Blood Culture - Preliminary Blood Assessment and Plan Plan: Assessment: 1. Acute kidney injury secondary to ATN secondary to cardiorenal syndrome. Started on hemodialysis 07/06/2023. Has right femoral catheter. No hydronephrosis noted on kidney ultrasound. 2. Chronic kidney disease stage IV with baseline creatinine near 2 secondary to nephrosclerosis. 3. Acute on chronic diastolic CHF with severe aortic stenosis and mild to moderate tricuspid regurgitation. 4. Hypokalemia from poor intake. 5. Large pericardial effusion status post pericardiocentesis this admission with over 1 L drained. 6. Hypercalcemia with concern for underlying primary hyperparathyroidism. Sensipar currently held as calcium is on the lower side. Workup from June 2023 showed PTH of 52.6, calcitriol level of 53, vitamin D level of 58.6, Eliseo level of 25. No Bence-Franks proteins were noted and urine immunofixation. 7. Hypernatremia from lack of oral water intake. Resolved. Plan: Hemodialysis today. New femoral cath placed this morning but awaiting intervention due to kink. Maintain midodrine. Continue to monitor renal function and urine output. Monitor vancomycin levels. Dose to be adjusted for renal function. Follow-up PTH related peptide. Parathyroid nuclear scan pending. Add IV Lasix daily. Check phosphorus level.
[2023-07-11] MEDS: FUROSEMIDE 10 MG/ML 10 ML VIAL IV SCH (11:33)
[2023-07-11 11:40] LABS: Glucose,Whole Blood 110 mg/dL (70-110)
[2023-07-11] MEDS ORDERED: LIDOCAINE 1% INJ 10MG/ML (30 ML VIAL-PF) SQ ONE (12:17)
[2023-07-11] MEDS ORDERED: fentaNYL (PF) 50 MCG/1 ML VIAL IVP ONE (12:17)
[2023-07-11] MEDS ORDERED: IOPAMIDOL-370 100ML BTL INJ ONE (12:19)
[2023-07-11] MEDS: APIXABAN 2.5 MG TABLET PO SCH ×2 (12:49→19:56)
[2023-07-11 16:26] LABS: Glucose,Whole Blood 73 mg/dL (70-110)
--- NOTE | 2023-07-11 19:04 | OP ---
OPERATIVE REPORT DATE OF SERVICE : PREOPERATIVE DIAGNOSIS: Acute chronic renal failure. PROCEDURE: Placement of a 23 cm dialysis catheter, right femoral approach. DESCRIPTION OF PROCEDURE: This patient had a dialysis catheter placed in the past, which was not working. The patient was brought to the slab miller operator. Right groin was prepped and draped in a sterile manner. A guidewire was passed and catheter was going into the 1 of the large collaterals. At this point, we did the venogram through the catheter and the dialysis catheter was pulled back and then we selected the vena cava and guidewire was passed to the vena cava and the catheter was advanced on top of the guidewire into the inferior vena cava, flushed with heparin saline and hep-locked, secured with 3-0 nylon. Dressing applied. The patient tolerated the procedure well. MMODL / IJN: [id number] /
[2023-07-11] MEDS: MONTELUKAST 10 MG TAB PO SCH (19:56)
[2023-07-11] MEDS: ATORVASTATIN 80 MG TAB PO SCH (19:56)
[2023-07-11 20:02] LABS: Glucose,Whole Blood 96 mg/dL (70-110)
--- NOTE | 2023-07-11 22:06 | P.PN ---
Subjective This is a pleasant 73 years old male with multiple medical problems including Atrial Fibrillation, Heart Failure, COPD, GI Bleed, Hyperlipidemia, Hypertension, chronic kidney disease/CPAP/BIPAP,Hiatal hernia, cateracts, d iverticulosis, CPAP use, Falls, Patient presents because transferred from [facility] for respiratory failure, on arrival he was hypotensive. He was recently in the hospital 06/17-06/19 for hypercalcemia and he was discharged on Sensipar which is thought secondary to hyperparathyroidism. Patient currently lives in the ICU using the BiPAP machine which limits history taken and provide information on the top of that patient is confused but he follows commands appropriately. He can answer some questions like he says he has no pain. He is asking if he can smoke now we explained for him he cannot declines the nicotine patch. Patient currently mildly tachycardic around 108, blood pressure is better 101/81 while he is on pressors. He is on BiPAP machine and he had a temperature of 98. 6. showing creatinine of 5.2 with baseline 2.2-2.9, calcium slightly elevated at 11.5. WBC is 15.7 while on steroids, while rest of CBC is unremarkable TSH is elevated at 4.7 but free T4 is normal at 0.7[place] [address] Ultrasound showing on obstructive uropathy but there is acute cholecystitis with thickened wall. Chest x-ray is suspicious for cardiomegaly and pulmonary edema EKG showing A. fib with rate of 82 b per minute. Patient currently in the ICU on amiodarone drip, Lasix drip at 10 mg per hour , levophed at 0.03 and Solu-Medrol 60 mg, Precedex and IV thiamine 06/28/2023 patient cannot get off the BiPAP overnight and early this morning, he desaturates easily. He remains on amiodarone drip, Lasix drip at 10 mg per hour, and a small dose of levophed at 0.03 and Precedex and thiamine. Distal, not tolerate oral medication and his Eliquis switch to Lovenox 120 mg once daily because of his high creatinine This pH 7.3, pCO2 50 and PaO2 of 76, which is a slightly better than yesterday. Creatinine coming down to 4.4. Ca is also coming down 10.1. WBC still elevated at 13.9 but also patient on steroids. General surgery R following for acute cholecystitis, HIDA scan is ordered, currently on Flagyl and Rocephin 06/29/2023 Patient evaluated today in the ICU. Has been transitioned to airvo. HIDA scan has been placed on hold today as there is findings of large pericardial effusion and cardiothoracic has been consulted. Echocardiogram shows normal LV function, with severe aortic stenosis, mild to moderate TR, mild MR, mild pulmonary hypertension, large pericardial effusion with no clear tamponade. He also had chest xray showing cardiomegaly with mild bibasilar effusions. Mild at the right base. Correlate for CHF. Small amount of atelectasis at the right base. Patient will be going for a pericardial window today. He continues on amiodarone gtt, continues on IV Lasix at 10 mg per hour, he is also on precedex and levophed. Patient is anticoagulated with lovenox. He is on IV ceftriaxone and IV flagyl. White blood cell count today is 13.7, BUN 117, creatinine 3.83. Procalcitonin 0.47. He is afebrile, heart rate in the 110s. Blood pressure marginal 84/57. 06/30/2023 Patient evaluated in the ICU. Status post pericardial window. No plans for HIDA scan of yet. He is more awake and alert today and responding to questions appropriately. He feels his leg swelling is much improved. He remains on airvo high flow oxygen support at 60L 93% FiO2. Saturations around 93%. He remains in and out of a.fib with RVR he has been taken off the amio gtt and placed on IV cardizem. Plans to transition off the lasix gtt today. He is on IV ceftriaxone, IV flagyl, IV solumedrol. He remains on a small dose of levo. Chest xray today showing moderate cardiomegaly with underlying pulmonary vascular congestion, small left greater than right pleural effusions with adjacent atelectasis and or consolidation. Some partially improving aeration of the left base compared to prior exam. Limited echocardiogram today showing small pericardial effusion. 07/01/2023 Patient remains in the ICU, his sitting in chair on nerve or with a flow rate of 60 L/m some saturation of FiO2 of 93%. He denies chest pain, mildly tachypneic. He is obese with mild fluid overload. His blood pressure is 107/58, heart rate 101, A. fib while he is on amiodarone and Cardizem drip Also is a small dose of pressors with Levophed at 0.03. Sodium is elevated at 149 and currently he is on D5W at 50 mL per hour. He does not show signs symptoms of alcohol withdrawal, he is on broad-spectrum antibiotics of Rocephin and Flagyl started by surgery team for suspected gallbladder disease. Currently he denies any abdominal pain. Remains on IV Solu-Medrol 60 mg as well. Creatinine improving down to 4. Cholecystectomy. 3. WBC 11.3. Cardiothoracic surgery followed closely and he is status post pericardial window and drainage of pericardial effusion of 1 L and today more than 200 mL. 07/02/2023 Patient in the ICU, sitting up in chair this morning, he looks more awake comfortable and relaxed however he still in mild respiratory distress and mild tachypnea. His oxygen requirement is less today and his currently on 7 L at high flow nasal cannula. Blood pressure 111/59, slightly tachypneic about 20-24 and he is afebrile. Creatinine improvement 3.6 sodium improving 147, still have mild leukocytosis but also is on steroids. Chest x-ray today I reviewed by myself showing better variation on the right lower zone but increased pleural effusion on the left side with possible adjacent atelectasis. Distal on Solu-Medrol 60 mg, broad-spectrum antibiotics by surgery team for Rocephin and oral Flagyl suspected for acute cholecystitis, patient currently he denies any right upper quadrant abdominal pain or tenderness. Remains on D5W at 75 mL/h. His metoprolol, torsemide on Eliquis remaining on hold currently. Resume the care of the patient 07/07/2023 Patient conditions worsened over the last 2-3 days, Currently he is on BiPAP lethargic and encephalopathic Is mildly tachypneic Chest x-ray showing right-sided pneumonia and pleural effusion Currently covered with Zosyn Started on low-dose pressors with Levophed today. 07/08/2023 Patient remains in the ICU,. Lethargic and weak, he's BiPAP dependent for aspiration pneumonia versus hospital-acquired pneumonia with chest x-ray showing bilateral basal infiltrates. Patient currently covered with Zosyn, IV vancomycin was added today. He is hemodynamically the same, still requiring pressors, blood pressure 111/59. Tachycardic and tachypneic. He is on BiPAP. His creatinine improving 2.9, WBC 12.7, sodium improved to 134, 07/09/2023 Patient seen and examined today in the ICU, his more awake and alert, he is on BiPAP with FiO2 of 50% His chest x-ray showing improvement also while his on IV vancomycin and Zosyn Is getting hemodialysis and his dialysis catheter needs to be changed. 1.8 L has been taken out. Another Hemodialysis will be on 07/11. His home dose of Eliquis 5 mg was started today at 2.5 mg because of his kidney problem for his chronic A. fib. 07/10/2023 Patient remains in the ICU, he is slightly more awake today, he is on high flow nasal cannula with FiO2 of 58% and a rate of 45 L/m His stoma at the tachycardic and tachypneic but improving. His creatinine 2.4 and received extra dose of IV Lasix today WBC is back to reference range 9.7, sodium 135. Chest x-ray showing slight improvement of bilateral infiltrates. Patient remains on IV vancomycin and Zosyn His on Eliquis 2.5 mg for A. fib Also he is on pressors with Levophed 07/11/2023 Patient continued improving slowly and gradually and he remains on BiPAP, more awake but still in respiratory distress. Remains on IV vancomycin and Zosyn Is getting hemodialysis PTH related peptide and nuclear scan ordered. Also he was placed on IV Lasix 80 mg daily, Eliquis 2.5 mg, Objective - Vital Signs Vital signs: Vital Signs Temp 97.6 F 07/11/23 11:45 Pulse 80 07/11/23 11:45 Resp 15 07/11/23 11:45 BP 89/73 07/11/23 11:45 Pulse Ox 93 L 07/11/23 11:45 FiO2 50 07/11/23 11:00 Intake & Output 07/10/23 07/11/23 07/11/23 18:59 06:59 18:59 Intake Total 590.23 526 100 Output Total 160 165 40 Balance 430.23 361 60 Weight 121 kg Intake: IV 175 25 100 Piperacillin-Tazobactam 3 175 25 100 .375 gm In Sodium Chloride 0.9% 100 ml @ 25 mls/hr IVPB Q8HR [facility] Rx# :[id number] Intake, IV Titration 15.23 501 Amount Norepinephrine 4 mg In 15.23 Sodium Chloride 0.9% 250 ml @ 0.03 MCG/KG/MIN 14. 059 mls/hr IV .Q18H4M [facility] Rx#:[id number] Vancomycin 1,750 mg In 501 Sodium Chloride 0.9% 500 ml 500 ml @ 167 mls/hr IVPB ONCE ONE Rx#: [id number] Oral 400 Output: Urine 160 165 40 Other: Voiding Method Indwelling Catheter Indwelling Catheter Indwelling Catheter ABP, PAP, CO, CI - Last Documented Arterial Blood Pressure 98/49 - Exam --GENERAL: The patient is awake , lethargic on BiPAP HEENT: Pupils are round and equally reacting to light. EOMI. No scleral icterus. No conjunctival pallor. Normocephalic, atraumatic. No pharyngeal erythema. No th yromegaly. CARDIOVASCULAR: S1 and S2 present. No murmurs, rubs, or gallops. -PULMONARY: Chest is limited air entry on both sides, slightly better than yesterday, no wheezing , no crackles. Mildly tachypneic while he is on BiPAP ABDOMEN: Soft, nontender, nondistended, normoactive bowel sounds. No palpable organomegaly. MUSCULOSKELETAL: No joint swelling or deformity. EXTREMITIES: No cyanosis, clubbing, or pedal edema. NEUROLOGICAL: Gross neurological examination did not reveal any focal deficits. SKIN: No rashes. no petechiae. - Labs CBC & Chem 7: 07/11/23 05:23 07/11/23 05:23 Labs: Abnormal Lab Results - Last 24 Hours (Table) 07/11/23 07/11/23 07/11/23 Range/Units 00:34 05:23 05:23 RBC 4.01 L (4.30-5.90) m/uL MCV 105.1 H (80.0-100.0) fL MCHC 30.9 L (31.0-37.0) g/dL Plt Count 51 L (150-450) k/uL Lymphocytes # 0.7 L (1.0-4.8) k/uL BUN 46 H (9-20) mg/dL Creatinine 3.02 H (0.66-1.25) mg/dL POC Glucose (mg/dL) 111 H (70-110) mg/dL Calcium 8.2 L (8.4-10.2) mg/dL Microbiology - Last 24 Hours (Table) 06/29/23 17:30 Fungal Culture - Preliminary Pericardial Fluid 07/07/23 10:56 Blood Culture - Preliminary Blood 07/07/23 10:56 Blood Culture - Preliminary Blood Assessment and Plan Assessment: Right lower lobe pneumonia Acute hypoxic respiratory failure requiring BiPAP COPD with exacerbation, resolved Acute on chronic diastolic CHF with a preserved ejection fraction Possible acute cholecystitis, versus intra-abdominal infection on broad-spectrum antibiotic Pericardial effusion status post pericardial window for drainage A. fib and RVR Acute kidney injury on chronic kidney disease stage IV Moderate to severe aortic stenosis Hypercalcemia secondary to hyperparathyroidism on treatment Alcohol use disorder Nicotine dependence Chronic hypoxic respiratory failure Morbid obesity with BMI 41.7. Plan: Continue with Zosyn, and IV vancomycin Continue with pressors On hemodialysis Pulmonary team on the case General surgery R following for acute cholecystitis, Antibiotic started with Rocephin and Flagyl Several consultants of the case with the pulmonary/critical care team, nephrology, neurology. Cardiothoracic surgery team Labs and medication were reviewed.. Continue same treatment. Continue with sy mptomatic treatment. Resume home medication. Monitor labs and vitals. DVT and GI prophylaxis. Further recommendations as per clinical course of the patient DVT prophylaxis: on eliquis GI Prophylaxis: Pepcid PT/OT: differed Prognosis is guarded
[2023-07-12] MEDS: PIPERACILLIN-TAZOBACTAM 3.375 GM in SODIUM CHLORIDE 0.9% 100 ML IVPB SCH (00:47)
[2023-07-12] MEDS: ALBUTEROL NEBULIZED 2.5 MG/3 ML INHALATION PRN (03:25)
[2023-07-12 05:38] LABS: Phosphorus 3.5 mg/dL (2.5-4.5)
[2023-07-12 05:39] LABS: African American GFR (CKD) 31 (>60 ml/min/1.73 sqM); Anion Gap 10 mmol/L; Blood Urea Nitrogen 25 mg/dL (9-20); Calcium 7.8 mg/dL (8.4-10.2); Carbon Dioxide 26 mmol/L (22-30); Chloride 100 mmol/L (98-107); Glucose 86 mg/dL (74-99); Non-African American GFR(CKD) 27 (>60 ml/min/1.73 sqM); Potassium 3.4 mmol/L (3.5-5.1); Sodium 136 mmol/L (137-145)
[2023-07-12 05:43] LABS: Vancomycin,Random 13.2 ug/mL
[2023-07-12 05:46] LABS: Basophils % (A) 0 %; Eosinophils # (A) 0.3 k/uL (0-0.7); Eosinophils % (A) 4 %; HGB 12.8 gm/dL (13.0-17.5); Hypochromasia Slight; Lymphocytes # (A) 0.6 k/uL (1.0-4.8); Lymphocytes % (A) 9 %; MCH 33.5 pg (25.0-35.0); MCHC 32.7 g/dL (31.0-37.0); MCV 102.7 fL (80.0-100.0); Macrocytosis Slight; Mean Platelet Volume 13.8; Monocytes # (A) 0.5 k/uL (0-1.0); Monocytes % (A) 7 %; Neutrophils # (A) 5.8 k/uL (1.3-7.7); Neutrophils % (A) 76 %; Platelet Count 44 k/uL (150-450); RDW 13.9 % (11.5-15.5); WBC 7.6 k/uL (3.8-10.6)
[2023-07-12] MEDS: INSULIN ASPART (NovoLOG) 100 UNIT/ML VIAL SQ SCH ×4 (06:16→20:38)
[2023-07-12 06:27] LABS: Glucose,Whole Blood 78 mg/dL (70-110)
[2023-07-12] MEDS ORDERED: POTASSIUM CHLORIDE ER 20 MEQ TAB.ER PO STA (06:56)
[2023-07-12] MEDS: APIXABAN 2.5 MG TABLET PO SCH (07:26)
[2023-07-12] MEDS: MIDODRINE 5 MG TAB PO SCH ×3 (07:45→18:46)
[2023-07-12] MEDS: IPRATROPIUM-ALBUTEROL 3 ML NEB INHALATION SCH ×4 (07:58→19:57)
--- NOTE | 2023-07-12 08:00 | P.PN ---
Subjective Progress Note Date: 07/12/23 Acute on chronic hypoxic and hypercapnic respiratory failure This is a 73-year-old white male with history of multiple medical problems including chronic congestive heart failure, COPD, chronic kidney disease, chronic hypoxic respiratory failure, obstructive sleep apnea syndrome, maintained on CPAP now patient was transferred from [facility] with 2 days history of increased shortness of breath. I have seen this patient in the past and his last evaluation in the hospital was on 02/16/2023. At that time the patient presented with acute on chronic hypoxic and hypercapnic respiratory failure with congestive heart failure and COPD. He should also had moderate severe aortic stenosis, and morbid obesity as well as chronic atrial fibrillation. Back then the patient was treated mostly aggressively with diuretics, and he was eventually discharged home after almost a week stay in the ICU. This time the patient has a very similar presentation, I saw the patient in the ER, and his is at bedside. Patient is now on BiPAP which I have adjusted to IPAP of 16 and EPAP 6, and he is also on 100% FiO2. ABG is pending, earlier venous ABG showed a pCO2 of 120 and pH of 7.01. After I evaluated the patient, I recommended immediate transfer to the ICU ABG, ultrasound of the chest, I cut down his IV fluid to KVO, started the patient on Lasix drip at 10 mg per hour. And explained to the that the patient may require intubation mechanical ventilation if his condition does not improve much and a short period of time. For low blood pressure may consider using norepinephrine, would definitely avoid using fluids at this point. Labs were reviewed chest x-ray was reviewed his BUN is 99 creatinine is 5.25, and his creatinine only a few days ago was 2.07. Apparently he is developing a worsening picture of chronic kidney disease. Could be cardiorenal. BNP level is 14,900 Reevaluated today on 06/27/2023, patient remains in the ICU, remains on Lasix drip at 10 mg per hour, amiodarone 0.5 mg/m for atrial fibrillation/RVR which she developed last night patient does have chronic history of atrial fibrillation remains on norepinephrine at 0.04 mcg/kg/m, he is on Precedex at 0.2 mcg/kg/hr, IV fluid at 20 mL per hour in the form of 0.9 normal saline. Blood pressure is noted to be borderline. Hence patient had a left subclavian triple-lumen catheter placed and a left radial arterial line placement. Repeat ABG this morning continues to show significant metabolic and respiratory acidosis pO2 of 79 pCO2 62 pH of 7.21, potassium is up to 5.19, patient was given 1 amp of bicarb for his acidosis. His BUN is 107 creatinine 5.17, slightly better compared to yesterday, patient is being evaluated by nephrology. Remains on BiPAP at 16/6/75% FiO2. And overall his clinical status is critically ill/marginal. Patient is definitely high risk for intubation mechanical ventilation, the patient and his are both aware of this, however at this point I will hold on mechanically ventilated the patient. We'll continue BiPAP, continue Lasix drip, and continue pressors patient may eventually require hemodialysis. Ultrasound of the chest showed small bilateral pleural effusions left more so than right, the left sided pocket is not large enough to consider safe left sided thoracentesis. Patient was reevaluated today on 06/2023, remains in the ICU, remains on Lasix drip at 10 mg per hour, remains on BiPAP at 12/6/75%. Patient is still requiring Precedex at 0.6 mcg/kg/h, norepinephrine at 0.03 mcg/kg/m. Patient is negative balance over the last 24 hours about 2 L. And he is steadily improving but remains critically ill, and simply requiring pressors. ABG showed a pO2 of 76 pCO2 of 50 pH of 7.34, significantly improved compared to his initial ABG on admission where his pCO2 was in the 120 range. Patient remains on Rocephin and Flagyl, his CT of the abdomen raised the possibility of acute cholecystitis, but clinically I do not see any evidence of cholecystitis, the patient has no pain or tenderness in the right upper quadrant. Being considered for a HIDA scan. CT of the brain came back negative for acute process. WBC count today is 13.9 hemoglobin 15.4. Platelets are 226, basic metabolic profile is normal BUN is 111 creatinine is down to 4.44 improving in spite of aggressive diuresis on this patient. If her enzymes are basically normal. Chest x-ray this morning showed cardiomegaly, pulmonary vascular congestion, bilateral pleural effusions, however based on ultrasound, the left-sided pleural effusion was not large enough to consider safe thoracentesis Progress note dated 06/29/2023. 73-year-old male seen in the intensive care unit, room 262. The patient is scheduled to have a pericardial window done today, June 29. Briefly, the patient was admitted to the hospital June 26, for CHF, acute mental status changes, and a pericardial effusion. The patient was admitted to the intensive care unit, on the day of admission. The patient's been between BiPAP, with settings of 12/6, and 75%, or AIRVO, at 60 L/m with an FiO2 of 80%. The patient is currently on norepinephrine at 2 mcg/m, dexmedetomidine at 0.3 mcg/kg/h, amiodarone at 0.5 mg/m, a Lasix drip at 10 mg an hour, and saline at KVO. White count is 13.7, hemoglobin 16, hematocrit 48.9, and a platelet count of 203,000. Sodium 143, potassium 4.1, chlorides 102, CO2 28, BUN 117, and creatinine 3.83. Pro-calcitonin level is 0.47, from yesterday. Chest x-ray shows cardiomegaly, with bibasilar effusions. Progress note dated 06/30/2023. 73-year-old male with a history of pericardial effusion. The patient had a bedside procedure done yesterday, to drain the pericardial effusion. About 1 L of fluid was removed. Currently, he's on AIRVO, at 60 L/m, with an FiO2 of 94%. He continues on Lasix drip at 10 mg an hour, norepinephrine at 7.1 mcg/m, amiodarone at 0.5 mg/m, and a Cardizem drip of 7.5 mg an hour. The patient spent some time on BiPAP as well. White count 15.1, hemoglobin 15, hematocrit 47.6, and platelet count 182,000. Sodium 147, potassium 3.3, chlorides 105, CO2 28, BUN 122, and creatinine 3.72. Glucose 193. Calcium is 9.0. Chest x-ray shows a pericardial drain. There is some volume loss of the left lower lobe, and small bilateral pleural effusions. Progress note dated 07/01/2023. 73-year-old male with history of pericardial effusion. The patient is postop day #2, status post pericardial window drainage catheter. He seen today in room 262. He continues on either AIRVO, at 50 L/m, with an FiO2 of 75%, or BiPAP, with settings of 12/6, and 85%. The patient continues on norepinephrine at 3.5 mcg/m, D5W at 50 mL an hour, and Cardizem drip at 7.5 mg an hour. The patient's pericardial catheter, was drained yesterday, and 235 mL of fluid was removed. White count 11.3, hemoglobin 14.3, hematocrit 44.7, and platelet count 136,000. Sodium 148, potassium 3.7, chlorides 107, CO2 27, BUN 129, and creatinine 3.82. Glucose 170. Calcium is 8.6. Chest x-ray shows cardiomegaly, and pulmonary vascular congestion, small bilateral effusions. Progress note dated 07/02/2023. 73-year-old male with history of pericardial effusion. The patient is postop day #3, status post pericardial window with drainage catheter. He seen today in room 262. Currently, he is on AIRVO, at 35 L/m with an FiO2 of 50%. The patient is getting D5W at 75 mL an hour. Over the last couple of days, the fluid removed from the pericardial space, has been very limited. White count is 10.9, hemoglobin 13.4, hematocrit 3.2, and platelet count 97,000. Sodium 147, potassium 3.6, chlorides 108, CO2 29, BUN 132, and creatinine 3.69. Glucose 2:1 5, calcium is 8.2. Chest x-ray shows cardiomegaly, and mild CHF with pulmonary vascular congestion. Progress note dated 07/03/2023. 73-year-old male with a history of pericardial effusion, postop day #4, status post pericardial window, which drainage catheter. The catheter has subsequently been removed. The patient is seen today in room 253. The patient is currently on AIRVO, with settings of 35 L/m, and an FiO2 of 60%. He's not receiving any IV fluids. Solu-Medrol will be discontinued. He apparently spent a few hours on BiPAP last night, with settings of 12/6, at the percent. The patient has been downgraded, and can be transferred out of the ICU. Laboratory data today includes a white count 12.2, hemoglobin 13.1, hematocrit 42, and platelet count 86,000. Sodium 143, potassium 3.7, chlorides 105, CO2 26, BUN 120, and creatinine 3.43. Calcium is 7.9. Culture data is pending or negative. Chest x-ray shows findings of CHF, and cardiomegaly. Small to moderate pleural effusi on, left greater than right. Progress note dated 07/04/2023. 73-year-old male, seen today in room 253. He is postop day #5, status post pericardial window, with insertion of a drainage catheter. Catheter has been removed. Currently, the patient is on BiPAP, with settings of 12/6, and 50%. Alternatively, the patient can be on AIRVO, at 35 L/m, with an FiO2 of 70%. Lasix has been added twice a day by nephrology. I believe that to be appropriate. The patient's not receiving any IV fluids. Labs today include sodium 141, potassium 3.8, chlorides 105, CO2 28, BUN 116, and creatinine 2.84. Calcium is 7.9. Progress note dated 07/05/2023. 73-year-old male seen today in room 253. He's postop day #6, status post pericardial window, insertion of a drainage catheter. Catheter has been re moved. The patient is currently on BiPAP, with settings of 12/6, and 50%. He's not on any IV fluids. We will check a pro-calcitonin level today. The patient could not tolerate AIRVO yesterday. Current labs include a white count 16.5, hemoglobin 16, hematocrit 52, and platelet count 98,000. Sodium 140, potassium 4, chlorides 101, CO2 27, BUN 118, and creatinine 2.87. Glucose 124. Chest x-ray shows mild fluid overload, and a potentially developing right lower lobe airspace infiltrate. Progress note dated 07/06/2023. 73-year-old male seen in 253. The patient continues in the intensive care unit. Today is postoperative day #7, status post pericardial window, and insertion of a pericardial drainage catheter. The patient's pericardial drainage catheter has subsequently been removed. This patient 1 day looks better, and the next day looks worse. Today he looks worse. He continues on BiPAP, his been pretty much BiPAP dependent, for the last couple days, with settings of 12/6, and 50%. He could not tolerate the AIRVO. In addition, because of worsening renal function, hemodialysis catheter will be placed, and the patient will undergo hemodialysis. His pro-calcitonin level was 0.41. He's currently on Zosyn. He seems much less alert today. White count 17.9, hemoglobin 15.2, hematocrit 51, and platelet count 100,000. Sodium 137, potassium 4.2, chlorides 100, CO2 23, a nion gap 14, BUN 127, creatinine 3.12. Chest x-ray reveals worsening infiltrate in the right lung, and bilateral pleural effusions. Also the upper lobe vessels are enlarged. On today's evaluation of 07/07/2023, the patient is being seen for a follow-up. The patient is known to have multiple medical problems and comorbidities. Is known to have COPD, CHF, chronic kidney disease And chronic hypoxic respiratory failure along with obstructive sleep apnea maintained on CPAP therapy on outpatient basis. He also suffers from chronic atrial fibrillation. The patient presented to us with an acute on top of chronic kidney failure, acute on top of chronic hypoxic and hypercapnic respiratory failure and he was found to have a large pericardial effusion. The patient underwent a pericardial window. He continued to be hypoxic throughout the hospitalization requiring high flow oxygen alternating with a BiPAP. He was back and forth to the intensive care unit. Currently is back in the ICU with hypoxic respiratory failure. He was unable to tolerate the high flow oxygen and currently is on BiPAP at a pressure of 12/6 with an FiO2 of 50%. Chest x-ray showing improvement in the previously described cardiomegaly. However, there is an extensive right lung consolidation consistent with pneumonia. Small pleural effusion on the left is also seen. The patient is currently undergoing hemodialysis. He underwent his first session of hemodialysis yesterday and the second session is being done this morning with a goal of ultrafiltration of 2.5 L. BUN is at 100 with a creatinine of 3.05 and a sodium level is at 135. The white cycles of 12.7 with a hemoglobin of 15.2. The patient is covered with IV Zosyn as a broad-spectrum antibiotic coverage. He is currently on norepinephrine running at 0.04 g pretty kilogram per minutes. Urine output is dropped and the patient is producing approximately 50 mL an hour. Overall fluid balance is +500 mL over the past 24 hours. Based on his underlying hypotension, he was given a bolus of 1000 mL of normal saline yesterday. I did with his echocardiogram and it showed a large pericardial effusion and this was obtained preoperatively. Never theless, the patient is a preserved LV function, he has severe aortic stenosis with a peak gradient of 76 and then medium gradient of 43 with mild regurgitation. His current cardiac rhythm is atrial fibrillation. Slightly tachycardic. Maintains on amiodarone 200 mg by mouth twice a day. He is also metoprolol 12.5 mg by mouth twice a day. No anticoagulants at this point in time. He is lethargic yet arousable. He is following simple commands. No massive edema in the lower extremities. He has a dialysis catheter in his right femoral vein. 07/08 2023, the patient is being seen in follow-up. The patient is critically ill with hypoxic respiratory failure secondary to bilateral pneumonia more extensive on the right. A repeat chest x-ray was done today and shows persistent consolidation of the right right lung more so on the right lower lobe. The patient is currently on a BiPAP at a pressure of 12 are 6 with an FiO2 of 50%. He was transitioned to high flow oxygen at 50 L yesterday and utilizes for several hours and overnight he went back on BiPAP at the current setting. Current pulse ox is at 91-92%. In terms of antibiotic coverage, the patient's is still on IV Zosyn. He is afebrile. Hemodynamically, the patient remains on norepinephrine which is running at 0.04 mcg/kg/m. Cardiac rhythm is atrial fibrillation. No cultures are available for the time being. The white cycles of 12.7 which is comparable to yesterday with a hemoglobin of 15.6 and a platelet count of 91. BUN is at 80 with a creatinine of 2.9 and sodium levels of 134 with a potassium level of 4.3. The patient is undergoing another session of hemodialysis this morning. The goal is also infiltrate in for a total of 1-2 L. Yesterday, he was INFILTRATED for a total of 2 L. Note that the patient has also severe aortic stenosis with a preserved LV function. No significant edema lower extremities. No agitation. No confusion. No altered mentation. He is an atrial fibrillation. Rate is controlled. No anticoagulants for now. No signs of any focal neurological deficit at this point in time. 07/09/2023, seeing the patient for a follow-up. The patient is currently sitting up on a recliner and he is still utilizing his BiPAP at a pressure of 12/6 with an FiO2 of 50%. Is awake and alert and communicating. He is still tachypneic while on the BiPAP. His generating adequate tidal volumes which are above 600 mL's. The chest x-ray still showing a dense consolidation of the right lung consistent with persistent pneumonia. Hospital-acquired pneumonia was suspected on this patient and the patient was given a combination of Zosyn and vancomycin was also added yesterday to broaden the antibiotic coverage. On today's evaluation, the blood WBC count is 11.3 with a hemoglobin 12.6, BUN is a 56 with a creatinine of 2.7 and a sodium level is at 135. The patient's last hemodialysis session was yesterday with a total of 1.8 L of ultrafiltration. He did have a bowel movement earlier. No significant abdominal distention for now. I try to transition this patient to a high flow oxygen system which she failed and he prefers to stay on the BiPAP. Unfortunately, no significant progress in terms of his right lung consolidation/pneumonia. Left lung is clear on today's chest x-ray. Oral intake is quite diminished and minimal at this point in time. No agitation. No confusion. His cardiac rhythm is controlled a chest fibrillation. No anticoagulants for now. 07/10/2023, the patient is sitting up on a chair and is currently on high flow oxygen with an FiO2 of 60% with a flow of 40 L. Note that he was able to tolerate high flow oxygen yesterday for an extended period of time. Overnight, he went back on the BiPAP upon his request. This morning, he was taken off the BiPAP again. His chest x-ray still showing consolidation of the right lung related to pneumonia. No significant sputum production. He remains afebrile. He remains on a combination of Zosyn and vancomycin. The patient underwent hemodialysis yesterday. He was able to tolerate hemodialysis without any significant hypotension. He is requiring a very low-dose of norepinephrine which is running at 0.01 mcg/kg/m. Otherwise, his labs are stable. Hemoglobin is at 12.6 which is stable with a white cell count of 9.7. BUN is at 40 with a creatinine of 2.4. His tolerating diet. There is some limited interval improvement in the right lung consolidation. Vancomycin trough is at 13.7. His cardiac rhythm is A. fib. Anticoagulation was also started yesterday and the patient is currently on Eliquis 2.5 mg twice a day. No other significant events overnight. He is cooperative and communicating. No altered mentation. Pro-[id number], the patient is on high flow oxygen at 40 L with an FiO2 of 50%. Overnight he was started on a BiPAP. Doing well on Zosyn and vancomycin. Chest x-ray shows persistent consolidation of the right lower lobe. He is on no pressors and he is awake and alert. No hemodialysis was done yesterday. Possibly today and this was discussed with nephrology. The white cell count is at 8.3, hemoglobin is at 13 and a platelet count is at 51. Urine is 46 with a creatinine of 3 and a sodium levels of 199. Tolerating diet. No nausea or vomiting. No emesis. No altered mentation. He remains in atrial fibrillation. The rate is controlled. Anticoagulation was started yesterday with Eliquis 2.5 mg twice a day. Will monitor his platelet count. Vancomycin trough is being monitored. Remains on Zosyn. No other significant issues otherwise for now. We'll try to attempt to wean down FiO2 as the patient's pulse ox is 96%. Urine output is passes's an hour and the patient remains oliguric. He is having difficulties with his dialysis catheter. Vascular surgery was involved again and the dialysis catheter will be placed by vascular surgery and hopefully to be followed up by another session of hemodialysis. He was started on hemodialysis on 07/06/2023. Given Lasix with limited success in terms of urine output. 07/12/2023, the patient is awake and alert and this morning he was switched to 6 L of oxygen by nasal cannula. He likes BiPAP machine and therapy and overnight his been on a BiPAP at a pressure of 12/6 with an FiO2 of 50%. Awaiting a follow-up chest x-ray from today. Obviously his pneumonia clinically is improving and repeat chest x-ray without today and the patient remains on the same antibiotic coverage which includes a combination of Zosyn and vancomycin. He underwent hemodialysis yesterday. His dialysis catheter was malfunctioning. The catheter exchange was done in the vascular lab. Another session of hemodialysis to be done today. His urine output is somewhat between 10-15 mL an hour. He is afebrile. His tolerating his diet. In terms of his labs, the white cell count is down to 7.6 with a hemoglobin of 12.8 and a platelet count of 44. His BUN is 25 with a creatinine of 2.35 and a sodium level is at 136. His vancomycin level was at 13.2. In terms of his medication, he remains on the antibiotics for now. Anticoagulation still being given with Eliquis 2.5 mg twice a day. I will suggest keeping this on hold as long as there is a drop in the platelet counts. Note that there is no signs of any bleeding. The patient also requires on and off pressors for blood pressure support. He is currently on norepinephrine running at 0.02 mcg/kg/m it is also on mitogen 10 mg by mouth 3 times a day. His receiving Lasix 80 mg IV every 24 hours. His cardiac rhythm is still atrial fibrillation, controlled rate and remains on metoprolol 12.5 mg twice a day. He remains on high-dose statins. Mental status is appropriate. Communicating. His tolerating diet. HE Is IN PLACE. Objective - Vital Signs Vital signs: Vital Signs Temp 97.2 F L 07/12/23 04:00 Pulse 91 07/12/23 07:00 Resp 15 07/12/23 07:00 BP 109/67 07/12/23 07:00 Pulse Ox 92 L 07/12/23 07:00 FiO2 50 07/12/23 03:25 Intake & Output 07/11/23 07/12/23 07/12/23 18:59 06:59 18:59 Intake Total 800 0 Output Total 2315 145 Balance -1515 -145 Weight 117.3 kg Intake: IV 200 Piperacillin-Tazobactam 3 200 .375 gm In Sodium Chloride 0.9% 100 ml @ 25 mls/hr IVPB Q8HR GERTRUDIS Rx# :[id number] Intake, IV Titration 0 Amount Norepinephrine 4 mg In 0 Sodium Chloride 0.9% 250 ml @ 0.03 MCG/KG/MIN 14. 059 mls/hr IV .[id number] GERTRUDIS Rx#:[id number] Hemodialysis 600 Output: Urine 215 145 Hemodialysis 2100 Other: Voiding Method Indwelling Catheter Indwelling Catheter # Bowel Movements 1 ABP, PAP, CO, CI - Last Documented Arterial Blood Pressure 98/49 - Exam No acute distress, currently on oxygen and the patient is currently on 6 L O2 nasal cannula, using the BiPAP overnight HEENT examination is grossly unremarkable. Neck supple. Full range of motion. No adenopathy thyromegaly or neck vein dis tention. Cardiovascular examination reveals regular rhythm rate. S1-S2 normal. No S3 or S4. There is a harsh systolic ejection murmur over the left sternal border and apex grade 4/6 Lungs reveal scattered rhonchi. Breath sounds equal bilaterally. Abdomen soft bowel sounds are heard. No masses or tenderness. Extremities are intact. No cyanosis clubbing or edema. Skin is without rash or lesion. Neurologically, the patient is awake and alert and the patient does not have any focal neurological deficit. Cranial nerves are essentially intact. - Labs CBC & Chem 7: 07/12/23 04:58 07/12/23 04:58 Labs: Abnormal Lab Results - Last 24 Hours (Table) 07/12/23 07/12/23 Range/Units 04:58 04:58 RBC 3.80 L (4.30-5.90) m/uL Hgb 12.8 L (13.0-17.5) gm/dL MCV 102.7 H (80.0-100.0) fL Plt Count 44 L (150-450) k/uL Lymphocytes # 0.6 L (1.0-4.8) k/uL Sodium 136 L (137-145) mmol/L Potassium 3.4 L (3.5-5.1) mmol/L BUN 25 H (9-20) mg/dL Creatinine 2.34 H (0.66-1.25) mg/dL Calcium 7.8 L (8.4-10.2) mg/dL Assessment and Plan Plan: Acute on chronic hypoxemic and hypercapnic respiratory failure. Respiratory failure is multifactorial. Initially the patient a large pericardial effusion probably related to chronic kidney disease. The patient underwent pericardial window. Currently he has significant consolidation of the right lung highly suspicious for a pneumonia. Note that this pulmonary infiltration developed during his current hospital stay. Initial chest exit time of admission showed no significant pneumonias. At the same time, he has small bilateral pleural effusions. Follow-up chest x-ray from today shows no interval change in the extensive right lung consolidation and there is some infiltration left lung base. Clinically, the patient is improved. Oxygen she is improved and the patient is currently on 6 L of oxygen by nasal cannula. Utilizing the BiPAP overnight. The patient is going to need a follow-up chest x-ray today. No signs of any acute respiratory distress Pericardial effusion, S/P pericardial window, 06/29/2023, POD # there is seen, cultures are negative, cytology from the pericardial fluid was also negative or any malignancy. Hospital-acquired right lung pneumonia and the patient is currently on IV Zosyn and vancomycin, no significant interval change on the chest x-ray findings. Unable to collect a sputum sample. Note that the Zosyn was started on 07/05/2023 and the patient is completing his seventh day of treatment. Is also on vancomycin. Episodic hypotension, currently on low-dose pressors .The patient was also started on midodrine Chronic Diastolic CHF. Acute on chronic kidney disease. Patient is currently undergoing daily hemodialysis, last session without his was performed yesterday on dialysis c atheter was exchanged yesterday Metabolic encephalopathy, improved and the patient is adequately communicating at this point in time. Mental status is appropriate Morbid obesity. Chronic atrial fibrillation, with paroxysmal atrial fibrillation/RVR. Rate is under better control with a combination of amiodarone and metoprolol. Patient is on Eliquis Moderately severe aortic stenosis. Obstructive sleep apnea syndrome. History of alcoholism. Hyperlipidemia. Plan Continue titrating the oxygen currently at 6 L hemodialysis catheter was exchanged yesterday Monitor blood pressure wean off norepinephrine, Continue vancomycin and switch this patient from Zosyn to oral Levaquin be adjusted by pharmacy Obtain a follow-up chest x-ray today Monitor platelet count, hold and anticoagulation, stopped Zosyn which may be contributing to his thrombocytopenia Monitor mental status is adequate May need a set of blood cultures 2, results are negative Monitor electrolytes Continue midodrine at a dose of 10 mg by mouth 3 times a day Full CODE STATUS and will continue to follow make further recommendations based on his progress Condition is still critical and the patient will be kept in the ICU.
[2023-07-12] MEDS: LEVOFLOXACIN 250 MG TAB PO SCH (09:22)
[2023-07-12] MEDS: FUROSEMIDE 10 MG/ML 10 ML VIAL IV SCH (09:22)
[2023-07-12] MEDS: AMIODARONE 200 MG TAB PO SCH ×2 (09:22→20:42)
[2023-07-12] MEDS: METOPROLOL TARTRATE 12.5 MG TAB PO SCH ×2 (09:22→20:34)
[2023-07-12] MEDS: FOLIC ACID 1 MG TAB PO SCH (09:22)
[2023-07-12] MEDS: FAMOTIDINE 20 MG/2 ML VIAL IV SCH (09:23)
[2023-07-12] MEDS: SENNOSIDES 8.6 MG TAB PO SCH (09:23)
--- NOTE | 2023-07-12 10:00 | P.PN ---
Subjective Patient is seen in follow-up for acute kidney injury on chronic kidney disease. Started on hemodialysis 07/06/2023. Urine output 10-25 mL an hour. Tolerating dialysis well. Vital signs are stable. Off Levophed. General: Resting in bed. HEENT: On NC. LUNGS: Scattered rhonchi. HEART: Rate and Rhythm are regular. ABDOMEN: Nontender. EXTREMITITES: Trace edema. Objective - Vital Signs Vital signs: Vital Signs Temp 97.6 F 07/12/23 09:00 Pulse 77 07/12/23 09:00 Resp 28 H 07/12/23 09:00 BP 101/64 07/12/23 09:00 Pulse Ox 92 L 07/12/23 09:00 FiO2 50 07/12/23 07:59 Intake & Output 07/11/23 07/12/23 07/12/23 18:59 06:59 18:59 Intake Total 800 0 100 Output Total 2315 145 50 Balance -1515 -145 50 Weight 117.3 kg Intake: IV 200 100 Piperacillin-Tazobactam 3 200 100 .375 gm In Sodium Chloride 0.9% 100 ml @ 25 mls/hr IVPB Q8HR [facility] Rx# :[id number] Intake, IV Titration 0 Amount Norepinephrine 4 mg In 0 Sodium Chloride 0.9% 250 ml @ 0.03 MCG/KG/MIN 14. 059 mls/hr IV .Q18H4M [facility] Rx#:[id number] Hemodialysis 600 Output: Urine 215 145 50 Hemodialysis 2100 Other: Voiding Method Indwelling Catheter Indwelling Catheter # Bowel Movements 1 ABP, PAP, CO, CI - Last Documented Arterial Blood Pressure 98/49 - Labs CBC & Chem 7: 07/12/23 04:58 07/12/23 04:58 Labs: Abnormal Lab Results - Last 24 Hours (Table) 07/12/23 07/12/23 Range/Units 04:58 04:58 RBC 3.80 L (4.30-5.90) m/uL Hgb 12.8 L (13.0-17.5) gm/dL MCV 102.7 H (80.0-100.0) fL Plt Count 44 L (150-450) k/uL Lymphocytes # 0.6 L (1.0-4.8) k/uL Sodium 136 L (137-145) mmol/L Potassium 3.4 L (3.5-5.1) mmol/L BUN 25 H (9-20) mg/dL Creatinine 2.34 H (0.66-1.25) mg/dL Calcium 7.8 L (8.4-10.2) mg/dL Assessment and Plan Plan: Assessment: 1. Acute kidney injury secondary to ATN secondary to cardiorenal syndrome. Started on hemodialysis 07/06/2023. Has right femoral catheter. No hydronephrosis noted on kidney ultrasound. 2. Chronic kidney disease stage IV with baseline creatinine near 2 secondary to nephrosclerosis. 3. Acute on chronic diastolic CHF with severe aortic stenosis and mild to moderate tricuspid regurgitation. 4. Hypokalemia from poor intake. Replaced. 5. Large pericardial effusion status post pericardiocentesis this admission with over 1 L drained. 6. Hypercalcemia with concern for underlying primary hyperparathyroidism. Sensipar currently held as calcium is on the lower side. Workup from June 2023 showed PTH of 52.6, calcitriol level of 53, vitamin D level of 58.6, Eliseo level of 25. No Bence-Franks proteins were noted and urine immunofixation. 7. Hypernatremia from lack of oral water intake. Resolved. Plan: Currently seen while undergoing hemodialysis. Next treatment on Thursday. Current femoral catheter placed 07/11/2023. Maintain midodrine. Continue to monitor renal function and urine output. Monitor vancomycin levels. Dose to be adjusted for renal function. Follow-up PTH related peptide. Parathyroid nuclear scan pending. Maintain IV Lasix. Phosphorus level 3.5 dated 07/12/2023.
[2023-07-12 11:17] LABS: Glucose,Whole Blood 79 mg/dL (70-110)
[2023-07-12] MEDS ORDERED: VANCOMYCIN 1,750 MG in SODIUM CHLORIDE 0.9% 500 ML 500 ML IVPB ONE (12:30)
--- NOTE | 2023-07-12 14:54 | XR ---
EXAMINATION TYPE: XR chest 1V DATE OF EXAM: 07/12/2023 9:49 AM CLINICAL INDICATION:Male, 73 years old with history of FU pneumonia; [facility] COMPARISON: 07/10/2023 and before TECHNIQUE: XR chest 1V Portable AP radiograph of the chest.. FINDINGS: Lines/Tubes/Devices: EKG leads overlie the chest. No indwelling lines are seen. Heart/mediastinum: Heart appears mildly to moderately enlarged. Mediastinum looks to be stable. Pulmonary vascularity: Mild pulmonary vascular congestion. Lungs/Pleura: Masslike consolidative opacity in the right mid to lower lung zone shows no significant change. Increased interstitial markings redemonstrated likely edema. Suspect small bilateral pleural effusions. No visible pneumothorax. Musculoskeletal: No acute osseous abnormality demonstrated in the limits of the exam. Mild degenerat doris changes. Other findings: None. IMPRESSION: 1. Cardiomegaly with mild congestion, edema, probable small pleural effusions. Correlate for CHF. No significant change. 2. Masslike consolidative opacity on the right shows no significant change. Recommend continued clos e follow-up, this may include a contrast CT of the chest for further evaluation when clinically appro priate.
[2023-07-12 16:14] LABS: Glucose,Whole Blood 71 mg/dL (70-110)
[2023-07-12 20:37] LABS: Glucose,Whole Blood 84 mg/dL (70-110)
[2023-07-12] MEDS: MONTELUKAST 10 MG TAB PO SCH (20:42)
[2023-07-12] MEDS: ATORVASTATIN 80 MG TAB PO SCH (20:42)
--- NOTE | 2023-07-12 22:21 | P.PN ---
Subjective This is a pleasant 73 years old male with multiple medical problems including Atrial Fibrillation, Heart Failure, COPD, GI Bleed, Hyperlipidemia, Hypertension, chronic kidney disease/CPAP/BIPAP,Hiatal hernia, cateracts, d iverticulosis, CPAP use, Falls, Patient presents because transferred from [facility] for respiratory failure, on arrival he was hypotensive. He was recently in the hospital 06/17-06/19 for hypercalcemia and he was discharged on Sensipar which is thought secondary to hyperparathyroidism. Patient currently lives in the ICU using the BiPAP machine which limits history taken and provide information on the top of that patient is confused but he follows commands appropriately. He can answer some questions like he says he has no pain. He is asking if he can smoke now we explained for him he cannot declines the nicotine patch. Patient currently mildly tachycardic around 108, blood pressure is better 101/81 while he is on pressors. He is on BiPAP machine and he had a temperature of 98. 6. showing creatinine of 5.2 with baseline 2.2-2.9, calcium slightly elevated at 11.5. WBC is 15.7 while on steroids, while rest of CBC is unremarkable TSH is elevated at 4.7 but free T4 is normal [place] 0[place] [address] Ultrasound showing on obstructive uropathy but there is acute cholecystitis with thickened wall. Chest x-ray is suspicious for cardiomegaly and pulmonary edema EKG showing A. fib with rate of 82 b per minute. Patient currently in the ICU on amiodarone drip, Lasix drip at 10 mg per hour , levophed at 0.03 and Solu-Medrol 60 mg, Precedex and IV thiamine 06/28/2023 patient cannot get off the BiPAP overnight and early this morning, he desaturates easily. He remains on amiodarone drip, Lasix drip at 10 mg per hour, and a small dose of levophed at 0.03 and Precedex and thiamine. Distal, not tolerate oral medication and his Eliquis switch to Lovenox 120 mg once daily because of his high creatinine This pH 7.3, pCO2 50 and PaO2 of 76, which is a slightly better than yesterday. Creatinine coming down to 4.4. Ca is also coming down 10.1. WBC still elevated at 13.9 but also patient on steroids. General surgery R following for acute cholecystitis, HIDA scan is ordered, currently on Flagyl and Rocephin 06/29/2023 Patient evaluated today in the ICU. Has been transitioned to airvo. HIDA scan has been placed on hold today as there is findings of large pericardial effusion and cardiothoracic has been consulted. Echocardiogram shows normal LV function, with severe aortic stenosis, mild to moderate TR, mild MR, mild pulmonary hypertension, large pericardial effusion with no clear tamponade. He also had chest xray showing cardiomegaly with mild bibasilar effusions. Mild at the right base. Correlate for CHF. Small amount of atelectasis at the right base. Patient will be going for a pericardial window today. He continues on amiodarone gtt, continues on IV Lasix at 10 mg per hour, he is also on precedex and levophed. Patient is anticoagulated with lovenox. He is on IV ceftriaxone and IV flagyl. White blood cell count today is 13.7, BUN 117, creatinine 3.83. Procalcitonin 0.47. He is afebrile, heart rate in the 110s. Blood pressure marginal 84/57. 06/30/2023 Patient evaluated in the ICU. Status post pericardial window. No plans for HIDA scan of yet. He is more awake and alert today and responding to questions appropriately. He feels his leg swelling is much improved. He remains on airvo high flow oxygen support at 60L 93% FiO2. Saturations around 93%. He remains in and out of a.fib with RVR he has been taken off the amio gtt and placed on IV cardizem. Plans to transition off the lasix gtt today. He is on IV ceftriaxone, IV flagyl, IV solumedrol. He remains on a small dose of levo. Chest xray today showing moderate cardiomegaly with underlying pulmonary vascular congestion, small left greater than right pleural effusions with adjacent atelectasis and or consolidation. Some partially improving aeration of the left base compared to prior exam. Limited echocardiogram today showing small pericardial effusion. 07/01/2023 Patient remains in the ICU, his sitting in chair on nerve or with a flow rate of 60 L/m some saturation of FiO2 of 93%. He denies chest pain, mildly tachypneic. He is obese with mild fluid overload. His blood pressure is 107/58, heart rate 101, A. fib while he is on amiodarone and Cardizem drip Also is a small dose of pressors with Levophed at 0.03. Sodium is elevated at 149 and currently he is on D5W at 50 mL per hour. He does not show signs symptoms of alcohol withdrawal, he is on broad-spectrum antibiotics of Rocephin and Flagyl started by surgery team for suspected gallbladder disease. Currently he denies any abdominal pain. Remains on IV Solu-Medrol 60 mg as well. Creatinine improving down to 4. Cholecystectomy. 3. WBC 11.3. Cardiothoracic surgery followed closely and he is status post pericardial window and drainage of pericardial effusion of 1 L and today more than 200 mL. 07/02/2023 Patient in the ICU, sitting up in chair this morning, he looks more awake comfortable and relaxed however he still in mild respiratory distress and mild tachypnea. His oxygen requirement is less today and his currently on 7 L at high flow nasal cannula. Blood pressure 111/59, slightly tachypneic about 20-24 and he is afebrile. Creatinine improvement 3.6 sodium improving 147, still have mild leukocytosis but also is on steroids. Chest x-ray today I reviewed by myself showing better variation on the right lower zone but increased pleural effusion on the left side with possible adjacent atelectasis. Distal on Solu-Medrol 60 mg, broad-spectrum antibiotics by surgery team for Rocephin and oral Flagyl suspected for acute cholecystitis, patient currently he denies any right upper quadrant abdominal pain or tenderness. Remains on D5W at 75 mL/h. His metoprolol, torsemide on Eliquis remaining on hold currently. Resume the care of the patient 07/07/2023 Patient conditions worsened over the last 2-3 days, Currently he is on BiPAP lethargic and encephalopathic Is mildly tachypneic Chest x-ray showing right-sided pneumonia and pleural effusion Currently covered with Zosyn Started on low-dose pressors with Levophed today. 07/08/2023 Patient remains in the ICU,. Lethargic and weak, he's BiPAP dependent for aspiration pneumonia versus hospital-acquired pneumonia with chest x-ray showing bilateral basal infiltrates. Patient currently covered with Zosyn, IV vancomycin was added today. He is hemodynamically the same, still requiring pressors, blood pressure 111/59. Tachycardic and tachypneic. He is on BiPAP. His creatinine improving 2.9, WBC 12.7, sodium improved to 134, 07/09/2023 Patient seen and examined today in the ICU, his more awake and alert, he is on BiPAP with FiO2 of 50% His chest x-ray showing improvement also while his on IV vancomycin and Zosyn Is getting hemodialysis and his dialysis catheter needs to be changed. 1.8 L has been taken out. Another Hemodialysis will be on 07/11. His home dose of Eliquis 5 mg was started today at 2.5 mg because of his kidney problem for his chronic A. fib. 07/10/2023 Patient remains in the ICU, he is slightly more awake today, he is on high flow nasal cannula with FiO2 of 58% and a rate of 45 L/m His stoma at the tachycardic and tachypneic but improving. His creatinine 2.4 and received extra dose of IV Lasix today WBC is back to reference range 9.7, sodium 135. Chest x-ray showing slight improvement of bilateral infiltrates. Patient remains on IV vancomycin and Zosyn His on Eliquis 2.5 mg for A. fib Also he is on pressors with Levophed 07/11/2023 Patient continued improving slowly and gradually and he remains on BiPAP, more awake but still in respiratory distress. Remains on IV vancomycin and Zosyn Is getting hemodialysis PTH related peptide and nuclear scan ordered. Also he was placed on IV Lasix 80 mg daily, Eliquis 2.5 mg, 07/12/2023 Patient breathing status is improving, during the day he is on 6 L oxygen via nasal cannula at that site is on BiPAP Although his generally weak. His creatinine is improving with hemodialysis Parathyroid hormone scan and related peptide a pending Repeat chest x-ray showing improvement over the last few days but there is still significant consolidation in the right middle lung. Radiologist recommended CAT scan with IV contrast but this relatively contraindicated with high creatinine. Patient continue with IV vancomycin and Zosyn. He is also on oral Lasix 80 mg, no steroids and Eliquis 2.5 mg given his A. fib and RVR Objective - Vital Signs Vital signs: Vital Signs Temp 97.9 F 07/12/23 20:00 Pulse 84 07/12/23 22:00 Resp 22 07/12/23 22:00 BP 78/65 07/12/23 22:00 Pulse Ox 94 L 07/12/23 22:00 FiO2 50 07/12/23 20:15 Intake & Output 07/12/23 07/12/23 07/13/23 06:59 18:59 06:59 Intake Total 0 1095.136 Output Total 145 1862 5 Balance -145 -766.864 -5 Weight 117.3 kg Intake: IV 600 Piperacillin-Tazobactam 3 100 .375 gm In Sodium Chloride 0.9% 100 ml @ 25 mls/hr IVPB Q8HR [facility] Rx# :[id number] Vancomycin 1,750 mg In 500 Sodium Chloride 0.9% 500 ml 500 ml @ 167 mls/hr IVPB ONCE ONE Rx#: [id number] Intake, IV Titration 0 95.136 Amount Norepinephrine 4 mg In 0 95.136 Sodium Chloride 0.9% 250 ml @ 0.03 MCG/KG/MIN 14. 059 mls/hr IV .Q18H4M [facility] Rx#:[id number] Hemodialysis 400 Output: Urine 145 162 5 Hemodialysis 1700 Other: Voiding Method Indwelling Catheter Indwelling Catheter Indwelling Catheter # Bowel Movements 1 ABP, PAP, CO, CI - Last Documented Arterial Blood Pressure 98/49 - Exam --GENERAL: The patient is awake , lethargic on BiPAP HEENT: Pupils are round and equally reacting to light. EOMI. No scleral icterus. No conjunctival pallor. Normocephalic, atraumatic. No pharyngeal erythema. No thyromegaly. CARDIOVASCULAR: S1 and S2 present. No murmurs, rubs, or gallops. -PULMONARY: Chest is limited air entry on both sides, slightly better than yesterday, no wheezing , no crackles. Mildly tachypneic while he is on BiPAP ABDOMEN: Soft, nontender, nondistended, normoactive bowel sounds. No palpable organomegaly. MUSCULOSKELETAL: No joint swelling or deformity. EXTREMITIES: No cyanosis, clubbing, or pedal edema. NEUROLOGICAL: Gross neurological examination did not reveal any focal deficits. SKIN: No rashes. no petechiae. - Labs CBC & Chem 7: 07/12/23 04:58 07/12/23 04:58 Labs: Abnormal Lab Results - Last 24 Hours (Table) 07/12/23 07/12/23 Range/Units 04:58 04:58 RBC 3.80 L (4.30-5.90) m/uL Hgb 12.8 L (13.0-17.5) gm/dL MCV 102.7 H (80.0-100.0) fL Plt Count 44 L (150-450) k/uL Lymphocytes # 0.6 L (1.0-4.8) k/uL Sodium 136 L (137-145) mmol/L Potassium 3.4 L (3.5-5.1) mmol/L BUN 25 H (9-20) mg/dL Creatinine 2.34 H (0.66-1.25) mg/dL Calcium 7.8 L (8.4-10.2) mg/dL Microbiology - Last 24 Hours (Table) 07/07/23 10:56 Blood Culture - Final Blood 07/07/23 10:56 Blood Culture - Final Blood Assessment and Plan Assessment: Right lower lobe pneumonia Acute hypoxic respiratory failure requiring BiPAP COPD with exacerbation, resolved Acute on chronic diastolic CHF with a preserved ejection fraction Possible acute cholecystitis, versus intra-abdominal infection on broad-spectrum antibiotic Pericardial effusion status post pericardial window for drainage A. fib and RVR Acute kidney injury on chronic kidney disease stage IV Moderate to severe aortic stenosis Hypercalcemia secondary to hyperparathyroidism on treatment Alcohol use disorder Nicotine dependence Chronic hypoxic respiratory failure Morbid obesity with BMI 41.7. Plan: Continue with Zosyn, and IV vancomycin Continue with pressors On hemodialysis Pulmonary team on the case General surgery R following for acute cholecystitis, Antibiotic started with Rocephin and Flagyl Several consultants of the case with the pulmonary/critical care team, nephrology, neurology. Cardiothoracic surgery team Labs and medication were reviewed.. Continue same treatment. Continue with symptomatic treatment. Resume home medication. Monitor labs and vitals. DVT and GI prophylaxis. Further recommendations as per clinical course of the patient DVT prophylaxis: on eliquis GI Prophylaxis: Pepcid PT/OT: differed Prognosis is guarded
[2023-07-13] MEDS: NOREPINEPHRINE 4 MG in SODIUM CHLORIDE 0.9% 250 ML IV SCH (02:29)
[2023-07-13 06:17] LABS: HCT 40.9 % (39.0-53.0); Hypochromasia Slight; MCH 32.7 pg (25.0-35.0); MCHC 31.7 g/dL (31.0-37.0); MCV 103.3 fL (80.0-100.0); Macrocytosis Slight; Mean Platelet Volume 13.3; RBC 3.96 m/uL (4.30-5.90); RDW 14.1 % (11.5-15.5); WBC 8.3 k/uL (3.8-10.6)
[2023-07-13 06:18] LABS: Glucose,Whole Blood 71 mg/dL (70-110)
[2023-07-13 06:35] LABS: African American GFR (CKD) 30 (>60 ml/min/1.73 sqM); Anion Gap 10 mmol/L; Blood Urea Nitrogen 18 mg/dL (9-20); Calcium 7.8 mg/dL (8.4-10.2); Carbon Dioxide 29 mmol/L (22-30); Chloride 97 mmol/L (98-107); Glucose 74 mg/dL (74-99); Non-African American GFR(CKD) 26 (>60 ml/min/1.73 sqM); Potassium 3.6 mmol/L (3.5-5.1); Sodium 136 mmol/L (137-145)
[2023-07-13 06:36] LABS: Platelet Count 36 k/uL (150-450)
[2023-07-13] MEDS: IPRATROPIUM-ALBUTEROL 3 ML NEB INHALATION SCH ×4 (07:42→21:17)
[2023-07-13] MEDS: INSULIN ASPART (NovoLOG) 100 UNIT/ML VIAL SQ SCH ×4 (08:52→21:12)
[2023-07-13] MEDS: SENNOSIDES 8.6 MG TAB PO SCH (08:54)
[2023-07-13] MEDS: METOPROLOL TARTRATE 12.5 MG TAB PO SCH ×2 (08:54→21:47)
[2023-07-13] MEDS: FOLIC ACID 1 MG TAB PO SCH (08:58)
[2023-07-13] MEDS: MIDODRINE 5 MG TAB PO SCH ×3 (08:58→17:29)
[2023-07-13] MEDS: FAMOTIDINE 20 MG/2 ML VIAL IV SCH (08:58)
[2023-07-13] MEDS: LEVOFLOXACIN 250 MG TAB PO SCH (08:59)
[2023-07-13] MEDS: AMIODARONE 200 MG TAB PO SCH ×2 (08:59→21:16)
[2023-07-13] MEDS ORDERED: POTASSIUM CHLORIDE ER 10 MEQ TAB.ER.PRT PO STA (09:27)
--- NOTE | 2023-07-13 09:45 | P.PN ---
Subjective Progress Note Date: 07/13/23 Acute on chronic hypoxic and hypercapnic respiratory failure This is a 73-year-old white male with history of multiple medical problems including chronic congestive heart failure, COPD, chronic kidney disease, chronic hypoxic respiratory failure, obstructive sleep apnea syndrome, maintained on CPAP now patient was transferred from [facility] with 2 days history of increased shortness of breath. I have seen this patient in the past and his last evaluation in the hospital was on 02/16/2023. At that time the patient presented with acute on chronic hypoxic and hypercapnic respiratory failure with congestive heart failure and COPD. He should also had moderate severe aortic stenosis, and morbid obesity as well as chronic atrial fibrillation. Back then the patient was treated mostly aggressively with diuretics, and he was eventually discharged home after almost a week stay in the ICU. This time the patient has a very similar presentation, I saw the patient in the ER, and his is at bedside. Patient is now on BiPAP which I have adjusted to IPAP of 16 and EPAP 6, and he is also on 100% FiO2. ABG is pending, earlier venous ABG showed a pCO2 of 120 and pH of 7.01. After I evaluated the patient, I recommended immediate transfer to the ICU ABG, ultrasound of the chest, I cut down his IV fluid to KVO, started the patient on Lasix drip at 10 mg per hour. And explained to the that the patient may require intubation mechanical ventilation if his condition does not improve much and a short period of time. For low blood pressure may consider using norepinephrine, would definitely avoid using fluids at this point. Labs were reviewed chest x-ray was reviewed his BUN is 99 creatinine is 5.25, and his creatinine only a few days ago was 2.07. Apparently he is developing a worsening picture of chronic kidney disease. Could be cardiorenal. BNP level is 14,900 Reevaluated today on 06/27/2023, patient remains in the ICU, remains on Lasix drip at 10 mg per hour, amiodarone 0.5 mg/m for atrial fibrillation/RVR which she developed last night patient does have chronic history of atrial fibrillation remains on norepinephrine at 0.04 mcg/kg/m, he is on Precedex at 0.2 mcg/kg/hr, IV fluid at 20 mL per hour in the form of 0.9 normal saline. Blood pressure is noted to be borderline. Hence patient had a left subclavian triple-lumen catheter placed and a left radial arterial line placement. Repeat ABG this morning continues to show significant metabolic and respiratory acidosis pO2 of 79 pCO2 62 pH of 7.21, potassium is up to 5.19, patient was given 1 amp of bicarb for his acidosis. His BUN is 107 creatinine 5.17, slightly better compared to yesterday, patient is being evaluated by nephrology. Remains on BiPAP at 16/6/75% FiO2. And overall his clinical status is critically ill/marginal. Patient is definitely high risk for intubation mechanical ventilation, the patient and his are both aware of this, however at this point I will hold on mechanically ventilated the patient. We'll continue BiPAP, continue Lasix drip, and continue pressors patient may eventually require hemodialysis. Ultrasound of the chest showed small bilateral pleural effusions left more so than right, the left sided pocket is not large enough to consider safe left sided thoracentesis. Patient was reevaluated today on 06/2023, remains in the ICU, remains on Lasix drip at 10 mg per hour, remains on BiPAP at 12/6/75%. Patient is still requiring Precedex at 0.6 mcg/kg/h, norepinephrine at 0.03 mcg/kg/m. Patient is negative balance over the last 24 hours about 2 L. And he is steadily improving but remains critically ill, and simply requiring pressors. ABG showed a pO2 of 76 pCO2 of 50 pH of 7.34, significantly improved compared to his initial ABG on admission where his pCO2 was in the 120 range. Patient remains on Rocephin and Flagyl, his CT of the abdomen raised the possibility of acute cholecystitis, but clinically I do not see any evidence of cholecystitis, the patient has no pain or tenderness in the right upper quadrant. Being considered for a HIDA scan. CT of the brain came back negative for acute process. WBC count today is 13.9 hemoglobin 15.4. Platelets are 226, basic metabolic profile is normal BUN is 111 creatinine is down to 4.44 improving in spite of aggressive diuresis on this patient. If her enzymes are basically normal. Chest x-ray this morning showed cardiomegaly, pulmonary vascular congestion, bilateral pleural effusions, however based on ultrasound, the left-sided pleural effusion was not large enough to consider safe thoracentesis Progress note dated 06/29/2023. 73-year-old male seen in the intensive care unit, room 262. The patient is scheduled to have a pericardial window done today, June 29. Briefly, the patient was admitted to the hospital June 26, for CHF, acute mental status changes, and a pericardial effusion. The patient was admitted to the intensive care unit, on the day of admission. The patient's been between BiPAP, with settings of 12/6, and 75%, or AIRVO, at 60 L/m with an FiO2 of 80%. The patient is currently on norepinephrine at 2 mcg/m, dexmedetomidine at 0.3 mcg/kg/h, amiodarone at 0.5 mg/m, a Lasix drip at 10 mg an hour, and saline at KVO. White count is 13.7, hemoglobin 16, hematocrit 48.9, and a platelet count of 203,000. Sodium 143, potassium 4.1, chlorides 102, CO2 28, BUN 117, and creatinine 3.83. Pro-calcitonin level is 0.47, from yesterday. Chest x-ray shows cardiomegaly, with bibasilar effusions. Progress note dated 06/30/2023. 73-year-old male with a history of pericardial effusion. The patient had a bedside procedure done yesterday, to drain the pericardial effusion. About 1 L of fluid was removed. Currently, he's on AIRVO, at 60 L/m, with an FiO2 of 94%. He continues on Lasix drip at 10 mg an hour, norepinephrine at 7.1 mcg/m, amiodarone at 0.5 mg/m, and a Cardizem drip of 7.5 mg an hour. The patient spent some time on BiPAP as well. White count 15.1, hemoglobin 15, hematocrit 47.6, and platelet count 182,000. Sodium 147, potassium 3.3, chlorides 105, CO2 28, BUN 122, and creatinine 3.72. Glucose 193. Calcium is 9.0. Chest x-ray shows a pericardial drain. There is some volume loss of the left lower lobe, and small bilateral pleural effusions. Progress note dated 07/01/2023. 73-year-old male with history of pericardial effusion. The patient is postop day #2, status post pericardial window drainage catheter. He seen today in room 262. He continues on either AIRVO, at 50 L/m, with an FiO2 of 75%, or BiPAP, with settings of 12/6, and 85%. The patient continues on norepinephrine at 3.5 mcg/m, D5W at 50 mL an hour, and Cardizem drip at 7.5 mg an hour. The patient's pericardial catheter, was drained yesterday, and 235 mL of fluid was removed. White count 11.3, hemoglobin 14.3, hematocrit 44.7, and platelet count 136,000. Sodium 148, potassium 3.7, chlorides 107, CO2 27, BUN 129, and creatinine 3.82. Glucose 170. Calcium is 8.6. Chest x-ray shows cardiomegaly, and pulmonary vascular congestion, small bilateral effusions. Progress note dated 07/02/2023. 73-year-old male with history of pericardial effusion. The patient is postop day #3, status post pericardial window with drainage catheter. He seen today in room 262. Currently, he is on AIRVO, at 35 L/m with an FiO2 of 50%. The patient is getting D5W at 75 mL an hour. Over the last couple of days, the fluid removed from the pericardial space, has been very limited. White count is 10.9, hemoglobin 13.4, hematocrit 3.2, and platelet count 97,000. Sodium 147, potassium 3.6, chlorides 108, CO2 29, BUN 132, and creatinine 3.69. Glucose 2:1 5, calcium is 8.2. Chest x-ray shows cardiomegaly, and mild CHF with pulmonary vascular congestion. Progress note dated 07/03/2023. 73-year-old male with a history of pericardial effusion, postop day #4, status post pericardial window, which drainage catheter. The catheter has subsequently been removed. The patient is seen today in room 253. The patient is currently on AIRVO, with settings of 35 L/m, and an FiO2 of 60%. He's not receiving any IV fluids. Solu-Medrol will be discontinued. He apparently spent a few hours on BiPAP last night, with settings of 12/6, at the percent. The patient has been downgraded, and can be transferred out of the ICU. Laboratory data today includes a white count 12.2, hemoglobin 13.1, hematocrit 42, and platelet count 86,000. Sodium 143, potassium 3.7, chlorides 105, CO2 26, BUN 120, and creatinine 3.43. Calcium is 7.9. Culture data is pending or negative. Chest x-ray shows findings of CHF, and cardiomegaly. Small to moderate pleural effusi on, left greater than right. Progress note dated 07/04/2023. 73-year-old male, seen today in room 253. He is postop day #5, status post pericardial window, with insertion of a drainage catheter. Catheter has been removed. Currently, the patient is on BiPAP, with settings of 12/6, and 50%. Alternatively, the patient can be on AIRVO, at 35 L/m, with an FiO2 of 70%. Lasix has been added twice a day by nephrology. I believe that to be appropriate. The patient's not receiving any IV fluids. Labs today include sodium 141, potassium 3.8, chlorides 105, CO2 28, BUN 116, and creatinine 2.84. Calcium is 7.9. Progress note dated 07/05/2023. 73-year-old male seen today in room 253. He's postop day #6, status post pericardial window, insertion of a drainage catheter. Catheter has been re moved. The patient is currently on BiPAP, with settings of 12/6, and 50%. He's not on any IV fluids. We will check a pro-calcitonin level today. The patient could not tolerate AIRVO yesterday. Current labs include a white count 16.5, hemoglobin 16, hematocrit 52, and platelet count 98,000. Sodium 140, potassium 4, chlorides 101, CO2 27, BUN 118, and creatinine 2.87. Glucose 124. Chest x-ray shows mild fluid overload, and a potentially developing right lower lobe airspace infiltrate. Progress note dated 07/06/2023. 73-year-old male seen in 253. The patient continues in the intensive care unit. Today is postoperative day #7, status post pericardial window, and insertion of a pericardial drainage catheter. The patient's pericardial drainage catheter has subsequently been removed. This patient 1 day looks better, and the next day looks worse. Today he looks worse. He continues on BiPAP, his been pretty much BiPAP dependent, for the last couple days, with settings of 12/6, and 50%. He could not tolerate the AIRVO. In addition, because of worsening renal function, hemodialysis catheter will be placed, and the patient will undergo hemodialysis. His pro-calcitonin level was 0.41. He's currently on Zosyn. He seems much less alert today. White count 17.9, hemoglobin 15.2, hematocrit 51, and platelet count 100,000. Sodium 137, potassium 4.2, chlorides 100, CO2 23, a nion gap 14, BUN 127, creatinine 3.12. Chest x-ray reveals worsening infiltrate in the right lung, and bilateral pleural effusions. Also the upper lobe vessels are enlarged. On today's evaluation of 07/07/2023, the patient is being seen for a follow-up. The patient is known to have multiple medical problems and comorbidities. Is known to have COPD, CHF, chronic kidney disease And chronic hypoxic respiratory failure along with obstructive sleep apnea maintained on CPAP therapy on outpatient basis. He also suffers from chronic atrial fibrillation. The patient presented to us with an acute on top of chronic kidney failure, acute on top of chronic hypoxic and hypercapnic respiratory failure and he was found to have a large pericardial effusion. The patient underwent a pericardial window. He continued to be hypoxic throughout the hospitalization requiring high flow oxygen alternating with a BiPAP. He was back and forth to the intensive care unit. Currently is back in the ICU with hypoxic respiratory failure. He was unable to tolerate the high flow oxygen and currently is on BiPAP at a pressure of 12/6 with an FiO2 of 50%. Chest x-ray showing improvement in the previously described cardiomegaly. However, there is an extensive right lung consolidation consistent with pneumonia. Small pleural effusion on the left is also seen. The patient is currently undergoing hemodialysis. He underwent his first session of hemodialysis yesterday and the second session is being done this morning with a goal of ultrafiltration of 2.5 L. BUN is at 100 with a creatinine of 3.05 and a sodium level is at 135. The white cycles of 12.7 with a hemoglobin of 15.2. The patient is covered with IV Zosyn as a broad-spectrum antibiotic coverage. He is currently on norepinephrine running at 0.04 g pretty kilogram per minutes. Urine output is dropped and the patient is producing approximately 50 mL an hour. Overall fluid balance is +500 mL over the past 24 hours. Based on his underlying hypotension, he was given a bolus of 1000 mL of normal saline yesterday. I did with his echocardiogram and it showed a large pericardial effusion and this was obtained preoperatively. Never theless, the patient is a preserved LV function, he has severe aortic stenosis with a peak gradient of 76 and then medium gradient of 43 with mild regurgitation. His current cardiac rhythm is atrial fibrillation. Slightly tachycardic. Maintains on amiodarone 200 mg by mouth twice a day. He is also metoprolol 12.5 mg by mouth twice a day. No anticoagulants at this point in time. He is lethargic yet arousable. He is following simple commands. No massive edema in the lower extremities. He has a dialysis catheter in his right femoral vein. 07/08 2023, the patient is being seen in follow-up. The patient is critically ill with hypoxic respiratory failure secondary to bilateral pneumonia more extensive on the right. A repeat chest x-ray was done today and shows persistent consolidation of the right right lung more so on the right lower lobe. The patient is currently on a BiPAP at a pressure of 12 are 6 with an FiO2 of 50%. He was transitioned to high flow oxygen at 50 L yesterday and utilizes for several hours and overnight he went back on BiPAP at the current setting. Current pulse ox is at 91-92%. In terms of antibiotic coverage, the patient's is still on IV Zosyn. He is afebrile. Hemodynamically, the patient remains on norepinephrine which is running at 0.04 mcg/kg/m. Cardiac rhythm is atrial fibrillation. No cultures are available for the time being. The white cycles of 12.7 which is comparable to yesterday with a hemoglobin of 15.6 and a platelet count of 91. BUN is at 80 with a creatinine of 2.9 and sodium levels of 134 with a potassium level of 4.3. The patient is undergoing another session of hemodialysis this morning. The goal is also infiltrate in for a total of 1-2 L. Yesterday, he was INFILTRATED for a total of 2 L. Note that the patient has also severe aortic stenosis with a preserved LV function. No significant edema lower extremities. No agitation. No confusion. No altered mentation. He is an atrial fibrillation. Rate is controlled. No anticoagulants for now. No signs of any focal neurological deficit at this point in time. 07/09/2023, seeing the patient for a follow-up. The patient is currently sitting up on a recliner and he is still utilizing his BiPAP at a pressure of 12/6 with an FiO2 of 50%. Is awake and alert and communicating. He is still tachypneic while on the BiPAP. His generating adequate tidal volumes which are above 600 mL's. The chest x-ray still showing a dense consolidation of the right lung consistent with persistent pneumonia. Hospital-acquired pneumonia was suspected on this patient and the patient was given a combination of Zosyn and vancomycin was also added yesterday to broaden the antibiotic coverage. On today's evaluation, the blood WBC count is 11.3 with a hemoglobin 12.6, BUN is a 56 with a creatinine of 2.7 and a sodium level is at 135. The patient's last hemodialysis session was yesterday with a total of 1.8 L of ultrafiltration. He did have a bowel movement earlier. No significant abdominal distention for now. I try to transition this patient to a high flow oxygen system which she failed and he prefers to stay on the BiPAP. Unfortunately, no significant progress in terms of his right lung consolidation/pneumonia. Left lung is clear on today's chest x-ray. Oral intake is quite diminished and minimal at this point in time. No agitation. No confusion. His cardiac rhythm is controlled a chest fibrillation. No anticoagulants for now. 07/10/2023, the patient is sitting up on a chair and is currently on high flow oxygen with an FiO2 of 60% with a flow of 40 L. Note that he was able to tolerate high flow oxygen yesterday for an extended period of time. Overnight, he went back on the BiPAP upon his request. This morning, he was taken off the BiPAP again. His chest x-ray still showing consolidation of the right lung related to pneumonia. No significant sputum production. He remains afebrile. He remains on a combination of Zosyn and vancomycin. The patient underwent hemodialysis yesterday. He was able to tolerate hemodialysis without any significant hypotension. He is requiring a very low-dose of norepinephrine which is running at 0.01 mcg/kg/m. Otherwise, his labs are stable. Hemoglobin is at 12.6 which is stable with a white cell count of 9.7. BUN is at 40 with a creatinine of 2.4. His tolerating diet. There is some limited interval improvement in the right lung consolidation. Vancomycin trough is at 13.7. His cardiac rhythm is A. fib. Anticoagulation was also started yesterday and the patient is currently on Eliquis 2.5 mg twice a day. No other significant events overnight. He is cooperative and communicating. No altered mentation. Pro-[id number], the patient is on high flow oxygen at 40 L with an FiO2 of 50%. Overnight he was started on a BiPAP. Doing well on Zosyn and vancomycin. Chest x-ray shows persistent consolidation of the right lower lobe. He is on no pressors and he is awake and alert. No hemodialysis was done yesterday. Possibly today and this was discussed with nephrology. The white cell count is at 8.3, hemoglobin is at 13 and a platelet count is at 51. Urine is 46 with a creatinine of 3 and a sodium levels of 199. Tolerating diet. No nausea or vomiting. No emesis. No altered mentation. He remains in atrial fibrillation. The rate is controlled. Anticoagulation was started yesterday with Eliquis 2.5 mg twice a day. Will monitor his platelet count. Vancomycin trough is being monitored. Remains on Zosyn. No other significant issues otherwise for now. We'll try to attempt to wean down FiO2 as the patient's pulse ox is 96%. Urine output is passes's an hour and the patient remains oliguric. He is having difficulties with his dialysis catheter. Vascular surgery was involved again and the dialysis catheter will be placed by vascular surgery and hopefully to be followed up by another session of hemodialysis. He was started on hemodialysis on 07/06/2023. Given Lasix with limited success in terms of urine output. 07/12/2023, the patient is awake and alert and this morning he was switched to 6 L of oxygen by nasal cannula. He likes BiPAP machine and therapy and overnight his been on a BiPAP at a pressure of 12/6 with an FiO2 of 50%. Awaiting a follow-up chest x-ray from today. Obviously his pneumonia clinically is improving and repeat chest x-ray without today and the patient remains on the same antibiotic coverage which includes a combination of Zosyn and vancomycin. He underwent hemodialysis yesterday. His dialysis catheter was malfunctioning. The catheter exchange was done in the vascular lab. Another session of hemodialysis to be done today. His urine output is somewhat between 10-15 mL an hour. He is afebrile. His tolerating his diet. In terms of his labs, the white cell count is down to 7.6 with a hemoglobin of 12.8 and a platelet count of 44. His BUN is 25 with a creatinine of 2.35 and a sodium level is at 136. His vancomycin level was at 13.2. In terms of his medication, he remains on the antibiotics for now. Anticoagulation still being given with Eliquis 2.5 mg twice a day. I will suggest keeping this on hold as long as there is a drop in the platelet counts. Note that there is no signs of any bleeding. The patient also requires on and off pressors for blood pressure support. He is currently on norepinephrine running at 0.02 mcg/kg/m it is also on mitogen 10 mg by mouth 3 times a day. His receiving Lasix 80 mg IV every 24 hours. His cardiac rhythm is still atrial fibrillation, controlled rate and remains on metoprolol 12.5 mg twice a day. He remains on high-dose statins. Mental status is appropriate. Communicating. His tolerating diet. HE Is IN PLACE. On 2023, the patient is feeling good. Awake and alert and communicating. No confusion. Remains on 6 L. Not using the BiPAP persistently and he is using it only on an as-needed basis. His BiPAP requirement has gone significantly down. The follow-up chest x-ray shows a persistent consolidation yet in comparison to the earlier chest x-ray, there is significant improvement. The patient remains on accommodation of Zosyn and vancomycin. Last hemodialysis session was yesterday and 400 mL of fluid was removed. He has been off pressors for more than 48 hours. BUN is at 18 with a creatinine of 2.3. The ribs, the day 0.3 hemoglobin is 13 and platelet count is 36. Anticoagulation was discontinued. Due to his drop in the platelet counts, Zosyn was discontinued and the patient was switched to Levaquin. He is taking Lasix 80 mg IV every 24 hours. Urine output remains quite diminished. Earlier this morning, he produced a total of 20 mL of urine output. No other significant events. No bleeding complications. Platelets are being monitored. The platelets have dropped occurred during this current hospitalization. Objective - Vital Signs Vital signs: Vital Signs Temp 96.7 F L 07/13/23 08:00 Pulse 64 07/13/23 08:00 Resp 70 H 07/13/23 08:00 BP 94/61 07/13/23 08:00 Pulse Ox 92 L 07/13/23 08:00 FiO2 50 07/13/23 04:00 Intake & Output 07/12/23 07/13/23 07/13/23 18:59 06:59 18:59 Intake Total 1095.136 Output Total 1862 10 40 Balance -766.864 -10 -40 Weight 116.8 kg Intake: IV 600 Piperacillin-Tazobactam 3 100 .375 gm In Sodium Chloride 0.9% 100 ml @ 25 mls/hr IVPB Q8HR [facility] Rx# :[id number] Vancomycin 1,750 mg In 500 Sodium Chloride 0.9% 500 ml 500 ml @ 167 mls/hr IVPB ONCE ONE Rx#: [id number] Intake, IV Titration 95.136 Amount Norepinephrine 4 mg In 95.136 Sodium Chloride 0.9% 250 ml @ 0.03 MCG/KG/MIN 14. 059 mls/hr IV .[id number] [facility] Rx#:[id number] Hemodialysis 400 Output: Urine 162 10 40 Hemodialysis 1700 Other: Voiding Method Indwelling Catheter Indwelling Catheter # Bowel Movements 1 ABP, PAP, CO, CI - Last Documented Arterial Blood Pressure 98/49 - Exam No acute distress, currently on oxygen and the patient is currently on 6 L O2 nasal cannula, using the BiPAP overnight only on an as-needed basis. HEENT examination is grossly unremarkable. Neck supple. Full range of motion. No adenopathy thyromegaly or neck vein distention. Cardiovascular examination reveals regular rhythm rate. S1-S2 normal. No S3 or S4. There is a harsh systolic ejection murmur over the left sternal border and apex grade 4/6 Lungs reveal scattered rhonchi. Breath sounds equal bilaterally. Abdomen soft bowel sounds are heard. No masses or tenderness. Extremities are intact. No cyanosis clubbing or edema. Skin is without rash or lesion. Neurologically, the patient is awake and alert and the patient does not have any focal neurological deficit. Cranial nerves are essentially intact. - Labs CBC & Chem 7: 07/13/23 06:04 07/13/23 06:04 Labs: Abnormal Lab Results - Last 24 Hours (Table) 07/13/23 07/13/23 Range/Units 06:04 06:04 RBC 3.96 L (4.30-5.90) m/uL MCV 103.3 H (80.0-100.0) fL Plt Count 36 L (150-450) k/uL Sodium 136 L (137-145) mmol/L Chloride 97 L (98-107) mmol/L Creatinine 2.38 H (0.66-1.25) mg/dL Calcium 7.8 L (8.4-10.2) mg/dL Microbiology - Last 24 Hours (Table) 07/07/23 10:56 Blood Culture - Final Blood 07/07/23 10:56 Blood Culture - Final Blood Assessment and Plan Plan: Acute on chronic hypoxemic and hypercapnic respiratory failure. Respiratory failure is multifactorial. Initially the patient a large pericardial effusion probably related to chronic kidney disease. The patient underwent pericardial window. Currently he has significant consolidation of the right lung highly suspicious for a pneumonia. Note that this pulmonary infiltration developed during his current hospital stay. Initial chest exit time of admission showed no significant pneumonias. At the same time, he has small bilateral pleural effusions. Follow-up chest x-ray from today shows no interval change in the extensive right lung consolidation and there is some infiltration left lung base. Clinically, the patient is improved. Oxygen she is improved and the patient is currently on 6 L of oxygen by nasal cannula. Utilizing the BiPAP ov ernight. The patient is going to need a follow-up chest x-ray today. No signs of any acute respiratory distress. Repeat chest x-ray from today shows improvement yet persistent consolidation of the right lung. Overall clinical condition is improved considerably. Pericardial effusion, S/P pericardial window, 06/29/2023, POD #14 there is seen, cultures are negative, cytology from the pericardial fluid was also negative or any malignancy. Hospital-acquired right lung pneumonia and the patient is currently on levaquin and vancomycin, no significant interval change on the chest x-ray findings. Unable to collect a sputum sample. Note that the Zosyn was started on 07/05/2023 and the patient is completing his seventh day of treatment. Is also on vancomycin. Zosyn was subsequently discontinued and the patient was placed on by mouth Levaquin. Episodic hypotension, currently on low-dose pressors .The patient was also started on midodrine Chronic Diastolic CHF. Acute on chronic kidney disease. Patient is currently undergoing daily hemodialysis, last session without his was performed yesterday on dialysis catheter was exchanged yesterday Metabolic encephalopathy, improved and the patient is adequately communicating at this point in time. Mental status is appropriate Morbid obesity. Chronic atrial fibrillation, with paroxysmal atrial fibrillation/RVR. Rate is under better control with a combination of amiodarone and metoprolol. Patient is on Eliquis Moderately severe aortic stenosis. Obstructive sleep apnea syndrome. History of alcoholism. Hyperlipidemia. Thrombocytopenia evolved during this current hospitalization. Rule out secondary to sepsis/drug induced. Plan Continue titrating the oxygen currently at 6 L hemodialysis catheter was exchanged yesterday, I total of 400 mL of fluid was removed Monitor blood pressure wean off norepinephrine, Continue vancomycin and Levaquin be adjusted by pharmacy Obtain a follow-up chest x-ray shows slow but ongoing improvement in the right lung consolidation Monitor platelet count Check heparin-induced antibodies Monitor mental status is adequate Keep the Eliquis on hold Blood cultures are negative Monitor electrolytes Continue midodrine at a dose of 10 mg by mouth 3 times a day Full CODE STATUS and will continue to follow make further recommendations based on his progress May be able to leave the ICU today
--- NOTE | 2023-07-13 10:10 | P.PN ---
Subjective Patient is seen in follow-up for acute kidney injury on chronic kidney disease. Started on hemodialysis 07/06/2023. Urine output 10-15 mL an hour. Tolerated 1.2 L yesterday. Vital signs are stable. Off Levophed. General: Resting in bed. HEENT: On NC. LUNGS: Scattered rhonchi. HEART: Rate and Rhythm are regular. ABDOMEN: Nontender. EXTREMITITES: Trace edema. Objective - Vital Signs Vital signs: Vital Signs Temp 96.7 F L 07/13/23 08:00 Pulse 78 07/13/23 09:00 Resp 20 07/13/23 10:00 BP 96/72 07/13/23 10:00 Pulse Ox 89 L 07/13/23 10:00 FiO2 50 07/13/23 04:00 Intake & Output 07/12/23 07/13/23 07/13/23 18:59 06:59 18:59 Intake Total 1095.136 Output Total 1862 10 65 Balance -766.864 -10 -65 Weight 116.8 kg Intake: IV 600 Piperacillin-Tazobactam 3 100 .375 gm In Sodium Chloride 0.9% 100 ml @ 25 mls/hr IVPB Q8HR [facility] Rx# :[id number] Vancomycin 1,750 mg In 500 Sodium Chloride 0.9% 500 ml 500 ml @ 167 mls/hr IVPB ONCE ONE Rx#: [id number] Intake, IV Titration 95.136 Amount Norepinephrine 4 mg In 95.136 Sodium Chloride 0.9% 250 ml @ 0.03 MCG/KG/MIN 14. 059 mls/hr IV .Q18H4M [facility] Rx#:[id number] Hemodialysis 400 Output: Urine 162 10 65 Hemodialysis 1700 Other: Voiding Method Indwelling Catheter Indwelling Catheter # Bowel Movements 1 ABP, PAP, CO, CI - Last Documented Arterial Blood Pressure 98/49 - Labs CBC & Chem 7: 07/13/23 06:04 07/13/23 06:04 Labs: Abnormal Lab Results - Last 24 Hours (Table) 07/13/23 07/13/23 Range/Units 06:04 06:04 RBC 3.96 L (4.30-5.90) m/uL MCV 103.3 H (80.0-100.0) fL Plt Count 36 L (150-450) k/uL Sodium 136 L (137-145) mmol/L Chloride 97 L (98-107) mmol/L Creatinine 2.38 H (0.66-1.25) mg/dL Calcium 7.8 L (8.4-10.2) mg/dL Microbiology - Last 24 Hours (Table) 07/07/23 10:56 Blood Culture - Final Blood 07/07/23 10:56 Blood Culture - Final Blood Assessment and Plan Plan: Assessment: 1. Acute kidney injury secondary to ATN secondary to cardiorenal syndrome. Started on hemodialysis 07/06/2023. Has right femoral catheter placed 07/11/23. No hydronephrosis noted on kidney ultrasound. 2. Chronic kidney disease stage IV with baseline creatinine near 2 secondary to nephrosclerosis. 3. Acute on chronic diastolic CHF with severe aortic stenosis and mild to moderate tricuspid regurgitation. 4. Hypokalemia from poor intake. Replaced. 5. Large pericardial effusion status post pericardiocentesis this admission with over 1 L drained. 6. Hypercalcemia with concern for underlying primary hyperparathyroidism. S ensipar currently held as calcium is on the lower side. Workup from June 2023 showed PTH of 52.6, calcitriol level of 53, vitamin D level of 58.6, Eliseo level of 25. No Bence-Franks proteins were noted and urine immunofixation. 7. Hypernatremia from lack of oral water intake. Resolved. Plan: HD on Thursday. Current femoral catheter placed 07/11/2023. Maintain midodrine. Continue to monitor renal function and urine output. Monitor vancomycin levels. Dose to be adjusted for renal function. Follow-up PTH related peptide. Parathyroid nuclear scan pending. Maintain IV Lasix. Phosphorus level 3.5 dated 07/12/2023.
[2023-07-13 12:05] LABS: Glucose,Whole Blood 78 mg/dL (70-110)
[2023-07-13] MEDS: FUROSEMIDE 10 MG/ML 10 ML VIAL IV SCH (14:54)
[2023-07-13 16:46] LABS: Glucose,Whole Blood 92 mg/dL (70-110)
[2023-07-13 21:11] LABS: Glucose,Whole Blood 77 mg/dL (70-110)
[2023-07-13] MEDS: MONTELUKAST 10 MG TAB PO SCH (21:16)
[2023-07-13] MEDS: ATORVASTATIN 80 MG TAB PO SCH (21:16)
--- NOTE | 2023-07-13 22:03 | P.PN ---
Subjective This is a pleasant 73 years old male with multiple medical problems including Atrial Fibrillation, Heart Failure, COPD, GI Bleed, Hyperlipidemia, Hypertension, chronic kidney disease/CPAP/BIPAP,Hiatal hernia, cateracts, d iverticulosis, CPAP use, Falls, Patient presents because transferred from [facility] for respiratory failure, on arrival he was hypotensive. He was recently in the hospital 06/17-06/19 for hypercalcemia and he was discharged on Sensipar which is thought secondary to hyperparathyroidism. Patient currently lives in the ICU using the BiPAP machine which limits history taken and provide information on the top of that patient is confused but he follows commands appropriately. He can answer some questions like he says he has no pain. He is asking if he can smoke now we explained for him he cannot declines the nicotine patch. Patient currently mildly tachycardic around 108, blood pressure is better 101/81 while he is on pressors. He is on BiPAP machine and he had a temperature of 98. 6. showing creatinine of 5.2 with baseline 2.2-2.9, calcium slightly elevated at 11.5. WBC is 15.7 while on steroids, while rest of CBC is unremarkable TSH is elevated at 4.7 but free T4 is normal [place] 0[place] [address] Ultrasound showing on obstructive uropathy but there is acute cholecystitis with thickened wall. Chest x-ray is suspicious for cardiomegaly and pulmonary edema EKG showing A. fib with rate of 82 b per minute. Patient currently in the ICU on amiodarone drip, Lasix drip at 10 mg per hour , levophed at 0.03 and Solu-Medrol 60 mg, Precedex and IV thiamine 06/28/2023 patient cannot get off the BiPAP overnight and early this morning, he desaturates easily. He remains on amiodarone drip, Lasix drip at 10 mg per hour, and a small dose of levophed at 0.03 and Precedex and thiamine. Distal, not tolerate oral medication and his Eliquis switch to Lovenox 120 mg once daily because of his high creatinine This pH 7.3, pCO2 50 and PaO2 of 76, which is a slightly better than yesterday. Creatinine coming down to 4.4. Ca is also coming down 10.1. WBC still elevated at 13.9 but also patient on steroids. General surgery R following for acute cholecystitis, HIDA scan is ordered, currently on Flagyl and Rocephin 06/29/2023 Patient evaluated today in the ICU. Has been transitioned to airvo. HIDA scan has been placed on hold today as there is findings of large pericardial effusion and cardiothoracic has been consulted. Echocardiogram shows normal LV function, with severe aortic stenosis, mild to moderate TR, mild MR, mild pulmonary hypertension, large pericardial effusion with no clear tamponade. He also had chest xray showing cardiomegaly with mild bibasilar effusions. Mild at the right base. Correlate for CHF. Small amount of atelectasis at the right base. Patient will be going for a pericardial window today. He continues on amiodarone gtt, continues on IV Lasix at 10 mg per hour, he is also on precedex and levophed. Patient is anticoagulated with lovenox. He is on IV ceftriaxone and IV flagyl. White blood cell count today is 13.7, BUN 117, creatinine 3.83. Procalcitonin 0.47. He is afebrile, heart rate in the 110s. Blood pressure marginal 84/57. 06/30/2023 Patient evaluated in the ICU. Status post pericardial window. No plans for HIDA scan of yet. He is more awake and alert today and responding to questions appropriately. He feels his leg swelling is much improved. He remains on airvo high flow oxygen support at 60L 93% FiO2. Saturations around 93%. He remains in and out of a.fib with RVR he has been taken off the amio gtt and placed on IV cardizem. Plans to transition off the lasix gtt today. He is on IV ceftriaxone, IV flagyl, IV solumedrol. He remains on a small dose of levo. Chest xray today showing moderate cardiomegaly with underlying pulmonary vascular congestion, small left greater than right pleural effusions with adjacent atelectasis and or consolidation. Some partially improving aeration of the left base compared to prior exam. Limited echocardiogram today showing small pericardial effusion. 07/01/2023 Patient remains in the ICU, his sitting in chair on nerve or with a flow rate of 60 L/m some saturation of FiO2 of 93%. He denies chest pain, mildly tachypneic. He is obese with mild fluid overload. His blood pressure is 107/58, heart rate 101, A. fib while he is on amiodarone and Cardizem drip Also is a small dose of pressors with Levophed at 0.03. Sodium is elevated at 149 and currently he is on D5W at 50 mL per hour. He does not show signs symptoms of alcohol withdrawal, he is on broad-spectrum antibiotics of Rocephin and Flagyl started by surgery team for suspected gallbladder disease. Currently he denies any abdominal pain. Remains on IV Solu-Medrol 60 mg as well. Creatinine improving down to 4. Cholecystectomy. 3. WBC 11.3. Cardiothoracic surgery followed closely and he is status post pericardial window and drainage of pericardial effusion of 1 L and today more than 200 mL. 07/02/2023 Patient in the ICU, sitting up in chair this morning, he looks more awake comfortable and relaxed however he still in mild respiratory distress and mild tachypnea. His oxygen requirement is less today and his currently on 7 L at high flow nasal cannula. Blood pressure 111/59, slightly tachypneic about 20-24 and he is afebrile. Creatinine improvement 3.6 sodium improving 147, still have mild leukocytosis but also is on steroids. Chest x-ray today I reviewed by myself showing better variation on the right lower zone but increased pleural effusion on the left side with possible adjacent atelectasis. Distal on Solu-Medrol 60 mg, broad-spectrum antibiotics by surgery team for Rocephin and oral Flagyl suspected for acute cholecystitis, patient currently he denies any right upper quadrant abdominal pain or tenderness. Remains on D5W at 75 mL/h. His metoprolol, torsemide on Eliquis remaining on hold currently. Resume the care of the patient 07/07/2023 Patient conditions worsened over the last 2-3 days, Currently he is on BiPAP lethargic and encephalopathic Is mildly tachypneic Chest x-ray showing right-sided pneumonia and pleural effusion Currently covered with Zosyn Started on low-dose pressors with Levophed today. 07/08/2023 Patient remains in the ICU,. Lethargic and weak, he's BiPAP dependent for aspiration pneumonia versus hospital-acquired pneumonia with chest x-ray showing bilateral basal infiltrates. Patient currently covered with Zosyn, IV vancomycin was added today. He is hemodynamically the same, still requiring pressors, blood pressure 111/59. Tachycardic and tachypneic. He is on BiPAP. His creatinine improving 2.9, WBC 12.7, sodium improved to 134, 07/09/2023 Patient seen and examined today in the ICU, his more awake and alert, he is on BiPAP with FiO2 of 50% His chest x-ray showing improvement also while his on IV vancomycin and Zosyn Is getting hemodialysis and his dialysis catheter needs to be changed. 1.8 L has been taken out. Another Hemodialysis will be on 07/11. His home dose of Eliquis 5 mg was started today at 2.5 mg because of his kidney problem for his chronic A. fib. 07/10/2023 Patient remains in the ICU, he is slightly more awake today, he is on high flow nasal cannula with FiO2 of 58% and a rate of 45 L/m His stoma at the tachycardic and tachypneic but improving. His creatinine 2.4 and received extra dose of IV Lasix today WBC is back to reference range 9.7, sodium 135. Chest x-ray showing slight improvement of bilateral infiltrates. Patient remains on IV vancomycin and Zosyn His on Eliquis 2.5 mg for A. fib Also he is on pressors with Levophed 07/11/2023 Patient continued improving slowly and gradually and he remains on BiPAP, more awake but still in respiratory distress. Remains on IV vancomycin and Zosyn Is getting hemodialysis PTH related peptide and nuclear scan ordered. Also he was placed on IV Lasix 80 mg daily, Eliquis 2.5 mg, 07/12/2023 Patient breathing status is improving, during the day he is on 6 L oxygen via nasal cannula at that site is on BiPAP Although his generally weak. His creatinine is improving with hemodialysis Parathyroid hormone scan and related peptide a pending Repeat chest x-ray showing improvement over the last few days but there is still significant consolidation in the right middle lung. Radiologist recommended CAT scan with IV contrast but this relatively contraindicated with high creatinine. Patient continue with IV vancomycin and Zosyn. He is also on oral Lasix 80 mg, no steroids and Eliquis 2.5 mg given his A. fib and RVR 07/13/2023 Patient continued to improve and his oxygen requirement of 6 L/m Chest x-ray showing better variation and thus consolidation of both significant on the right side. An IV vancomycin and Zosyn switched to Levaquin Patient transferred to the office today Her thyroid scan are pending Continue with dialysis per nephrology he Is also on Eliquis. Objective - Vital Signs Vital signs: Vital Signs Temp 96.7 F L 07/13/23 08:00 Pulse 78 07/13/23 09:00 Resp 20 07/13/23 10:00 BP 96/72 07/13/23 10:00 Pulse Ox 89 L 07/13/23 10:00 FiO2 50 07/13/23 04:00 Intake & Output 07/12/23 07/13/23 07/13/23 18:59 06:59 18:59 Intake Total 1095.136 Output Total 1862 10 65 Balance -766.864 -10 -65 Weight 116.8 kg Intake: IV 600 Piperacillin-Tazobactam 3 100 .375 gm In Sodium Chloride 0.9% 100 ml @ 25 mls/hr IVPB Q8HR [facility] Rx# :[id number] Vancomycin 1,750 mg In 500 Sodium Chloride 0.9% 500 ml 500 ml @ 167 mls/hr IVPB ONCE ONE Rx#: [id number] Intake, IV Titration 95.136 Amount Norepinephrine 4 mg In 95.136 Sodium Chloride 0.9% 250 ml @ 0.03 MCG/KG/MIN 14. 059 mls/hr IV .Q18H4M [facility] Rx#:[id number] Hemodialysis 400 Output: Urine 162 10 65 Hemodialysis 1700 Other: Voiding Method Indwelling Catheter Indwelling Catheter # Bowel Movements 1 ABP, PAP, CO, CI - Last Documented Arterial Blood Pressure 98/49 - Exam --GENERAL: The patient is awake , lethargic on BiPAP HEENT: Pupils are round and equally reacting to light. EOMI. No scleral icterus. No conjunctival pallor. Normocephalic, atraumatic. No pharyngeal erythema. No thyromegaly. CARDIOVASCULAR: S1 and S2 present. No murmurs, rubs, or gallops. -PULMONARY: Chest is limited air entry on both sides, slightly better than yesterday, no wheezing , no crackles. Mildly tachypneic while he is on BiPAP ABDOMEN: Soft, nontender, nondistended, normoactive bowel sounds. No palpable organomegaly. MUSCULOSKELETAL: No joint swelling or deformity. EXTREMITIES: No cyanosis, clubbing, or pedal edema. NEUROLOGICAL: Gross neurological examination did not reveal any focal deficits. SKIN: No rashes. no petechiae. - Labs CBC & Chem 7: 07/13/23 06:04 07/13/23 06:04 Labs: Abnormal Lab Results - Last 24 Hours (Table) 07/13/23 07/13/23 Range/Units 06:04 06:04 RBC 3.96 L (4.30-5.90) m/uL MCV 103.3 H (80.0-100.0) fL Plt Count 36 L (150-450) k/uL Sodium 136 L (137-145) mmol/L Chloride 97 L (98-107) mmol/L Creatinine 2.38 H (0.66-1.25) mg/dL Calcium 7.8 L (8.4-10.2) mg/dL Microbiology - Last 24 Hours (Table) 07/07/23 10:56 Blood Culture - Final Blood 07/07/23 10:56 Blood Culture - Final Blood Assessment and Plan Assessment: Right lower lobe pneumonia Acute hypoxic respiratory failure requiring BiPAP COPD with exacerbation, resolved Acute on chronic diastolic CHF with a preserved ejection fraction Possible acute cholecystitis, versus intra-abdominal infection on broad-spectrum antibiotic, improved Pericardial effusion status post pericardial window for drainage A. fib and RVR Acute kidney injury on chronic kidney disease stage IV Moderate to severe aortic stenosis Hypercalcemia secondary to hyperparathyroidism on treatment Alcohol use disorder Nicotine dependence Chronic hypoxic respiratory failure Morbid obesity with BMI 41.7. Plan: Continue with oral Levaquin, and IV vancomycin Continue with oxygen to keep saturation more than 90% On hemodialysis Pulmonary team on the case General surgery R following for acute cholecystitis, finish antibiotic Several consultants of the case with the pulmonary/critical care team, nephrology, neurology. Cardiothoracic surgery team Labs and medication were reviewed.. Continue same treatment. Continue with symptomatic treatment. Resume home medication. Monitor labs and vitals. DVT and GI prophylaxis. Further recommendations as per clinical course of the patient DVT prophylaxis: on eliquis GI Prophylaxis: Pepcid PT/OT: differed Prognosis is guarded
[2023-07-14 05:45] LABS: Glucose,Whole Blood 70 mg/dL (70-110)
[2023-07-14] MEDS: INSULIN ASPART (NovoLOG) 100 UNIT/ML VIAL SQ SCH ×4 (05:49→21:22)
[2023-07-14] MEDS: MIDODRINE 5 MG TAB PO SCH ×3 (06:44→17:28)
[2023-07-14] MEDS: IPRATROPIUM-ALBUTEROL 3 ML NEB INHALATION SCH ×5 (08:36→21:55)
[2023-07-14] MEDS: AMIODARONE 200 MG TAB PO SCH ×2 (09:18→21:25)
[2023-07-14] MEDS: SENNOSIDES 8.6 MG TAB PO SCH (09:18)
[2023-07-14] MEDS: METOPROLOL TARTRATE 12.5 MG TAB PO SCH ×2 (09:18→21:23)
[2023-07-14] MEDS: FOLIC ACID 1 MG TAB PO SCH (09:56)
--- NOTE | 2023-07-14 10:45 | P.PN ---
Subjective Patient is seen in follow-up for acute kidney injury on chronic kidney disease. Started on hemodialysis 07/06/2023. Remains oliguric. Tolerating dialysis well. Transferred out of the ICU. Vital signs are stable. General: Resting in bed. HEENT: On NC. LUNGS: Scattered rhonchi. HEART: Rate and Rhythm are regular. ABDOMEN: Nontender. EXTREMITITES: Trace edema. Objective - Vital Signs Vital signs: Vital Signs Temp 97.9 F 07/14/23 07:01 Pulse 84 07/14/23 08:44 Resp 20 07/14/23 09:24 BP 94/58 07/14/23 07:01 Pulse Ox 98 07/14/23 08:38 FiO2 50 07/14/23 04:15 Intake & Output 07/13/23 07/14/23 07/14/23 18:59 06:59 18:59 Output Total 80 Balance -80 Output: Urine 80 Other: Voiding Method Indwelling Catheter Indwelling Catheter Indwelling Catheter # Bowel Movements 1 ABP, PAP, CO, CI - Last Documented Arterial Blood Pressure 98/49 - Labs CBC & Chem 7: 07/13/23 06:04 07/13/23 06:04 Assessment and Plan Plan: Assessment: 1. Acute kidney injury secondary to ATN secondary to cardiorenal syndrome. Started on hemodialysis 07/06/2023. Has right femoral catheter placed 07/11/23. No hydronephrosis noted on kidney ultrasound. 2. Chronic kidney disease stage IV with baseline creatinine near 2 secondary to nephrosclerosis. 3. Acute on chronic diastolic CHF with severe aortic stenosis and mild to moderate tricuspid regurgitation. 4. Hypokalemia from poor intake. Replaced. 5. Large pericardial effusion status post pericardiocentesis this admission with over 1 L drained. 6. Hypercalcemia with concern for underlying primary hyperparathyroidism. Sensipar currently held as calcium is on the lower side. Workup from June 2023 showed PTH of 52.6, calcitriol level of 53, vitamin D level of 58.6, Eliseo level of 25. No Bence-Franks proteins were noted and urine immunofixation. 7. Hypernatremia from lack of oral water intake. Resolved. Plan: Currently seen while undergoing hemodialysis. Next treatment on . manager med surg to set up outpatient hemodialysis. Current femoral catheter placed 07/11/2023 - needs permanent catheter. Discussed with vascular surgery. Maintain midodrine. Continue to monitor renal function and urine output. Monitor vancomycin levels. Dose to be adjusted for renal function. Follow-up PTH related peptide. Parathyroid nuclear scan scheduled for tomorrow. Stop IV lasix - add torsemide. Phosphorus level 3.5 dated 07/12/2023.
[2023-07-14] MEDS: FUROSEMIDE 10 MG/ML 10 ML VIAL IV SCH (11:03)
[2023-07-14 11:15] LABS: Glucose,Whole Blood 88 mg/dL (70-110)
[2023-07-14] MEDS: LEVOFLOXACIN 250 MG TAB PO SCH (13:18)
[2023-07-14] MEDS: FAMOTIDINE 20 MG/2 ML VIAL IV SCH (14:02)
--- NOTE | 2023-07-14 15:01 | P.PN ---
Subjective Progress Note Date: 07/14/23 The patient is seen today 07/14/2023 in follow-up on the regular medical floor. He is awake and alert in no acute distress. He is resting comfortably in bed. He is maintaining O2 saturations in the 90s on 6 L high flow nasal cannula. Continues to be treated for right lower lobe pneumonia. He remains on vancomycin and Levaquin. He also has diastolic congestive heart failure. He is receiving hemodialysis. A goal of 2 L to be removed. A permacath is being placed today. Blood cultures revealed no growth. Pericardial fluid cultures revealed no growth. Glucose 88. He remains on bronchodilators. Objective - Vital Signs Vital signs: Vital Signs Temp 98.6 F 07/14/23 14:00 Pulse 97 07/14/23 14:00 Resp 17 07/14/23 14:00 BP 110/70 07/14/23 14:00 Pulse Ox 97 07/14/23 14:00 FiO2 50 07/14/23 04:15 Intake & Output 07/13/23 07/14/23 07/14/23 18:59 06:59 18:59 Intake Total 500 Output Total 80 2000 Balance -80 -1500 Intake: Oral 100 Hemodialysis 400 Output: Urine 80 Hemodialysis 2000 Other: Voiding Method Indwelling Catheter Indwelling Catheter Indwelling Catheter # Bowel Movements 1 ABP, PAP, CO, CI - Last Documented Arterial Blood Pressure 98/49 - Exam GENERAL EXAM: Alert, 73-year-old male, wek and debilitated, on 6 L nasal cannula, alternating with BiPAP at night as needed,, comfortable in no apparent distress. HEAD: Normocephalic. EYES: Normal reaction of pupils, equal size. NOSE: Clear with pink turbinates. THROAT: No erythema or exudates. NECK: No masses, no JVD. CHEST: No chest wall deformity. LUNGS: Equal air entry with coarse crackles in the right lung base. CVS: S1 and S2 normal with an audible murmur, regular rhythm. ABDOMEN: No hepatosplenomegaly, normal bowel sounds, no guarding or rigidity. SPINE: No scoliosis or deformity SKIN: No rashes CENTRAL NERVOUS SYSTEM: No focal deficits, tone is normal in all 4 extremities. EXTREMITIES: Right femoral hemodialysis catheter in place. There is no peripheral edema. No clubbing, no cyanosis. Peripheral pulses are intact. - Labs CBC & Chem 7: 07/13/23 06:04 07/13/23 06:04 Assessment and Plan Assessment: Acute on chronic hypoxemic and hypercapnic respiratory failure. Respiratory failure is multifactorial. Initially the patient a large pericardial effusion probably related to chronic kidney disease. The patient underwent pericardial window. Currently he has significant consolidation of the right lung highly suspicious for a pneumonia. Note that this pulmonary infiltration developed during his current hospital stay. Initial chest x ray at time of admission showed no significant pneumonias. At the same time, he has small bilateral pleural effusions. Follow-up chest x-ray from today shows no interval change in the extensive right lung consolidation and there is some infiltration left lung base. Clinically, the patient is improved. Oxygen she is improved and the patient is currently on 6 L of oxygen by nasal cannula. Utilizing the BiPAP overnight. No signs of any acute respiratory distress. Repeat chest x-ray from today shows improvement yet persistent consolidation of the right lung. Overall clinical condition is improved considerably. Pericardial effusion, S/P pericardial window, 06/29/2023, POD #15 there is seen, cultures are negative, cytology from the pericardial fluid was also negative or any malignancy. Hospital-acquired right lung pneumonia and the patient is currently on levaquin and vancomycin, no significant interval change on the chest x-ray findings. Unable to collect a sputum sample. Note that the Zosyn was started on 07/05/2023 and the patient is completing his seventh day of treatment. Is also on vancomycin. Zosyn was subsequently discontinued and the patient was placed on by mouth Levaquin. Episodic hypotension, currently on low-dose pressors .The patient was also started on midodrine Chronic Diastolic CHF. Acute on chronic kidney disease. Patient is currently undergoing daily hemodialysis, plan is for permacath placement today Metabolic encephalopathy, improved and the patient is adequately communicating at this point in time. Mental status is appropriate Morbid obesity. Chronic atrial fibrillation, with paroxysmal atrial fibrillation/RVR. Rate is under better control with a combination of amiodarone and metoprolol. Patient is on Eliquis Moderately severe aortic stenosis. Obstructive sleep apnea syndrome. History of alcoholism. Hyperlipidemia. Thrombocytopenia evolved during this current hospitalization. Rule out secondary to sepsis/drug induced. Plan: The patient was seen and evaluated Currently stable on 6 L high flow nasal cannula To be tapered down as tolerated Plan is for permacath placement today Plan is for subacute rehab with outpatient hemodialysis Currently on vancomycin and Levaquin Continue bronchodilators We will continue to follow I have personally seen and examined the patient, performed the documentation and the assessment and plan as written. Number of minutes spent on the visit: 10.
[2023-07-14] MEDS ORDERED: fentaNYL (PF) 50 MCG/1 ML VIAL IVP ONE (15:18)
[2023-07-14] MEDS ORDERED: LIDOCAINE 1% INJ 10MG/ML (30 ML VIAL-PF) SQ ONE (15:26)
[2023-07-14 15:30] LABS: BUN/Creat Ratio 5.88 Ratio (12.00-20.00); Glucose 75 mg/dL (70-110)
[2023-07-14 15:31] LABS: Calcium 8.3 mg/dL (8.7-10.3); Carbon Dioxide 24.5 mmol/L (21.6-31.8); Chloride 100 mmol/L (96-109); Potassium 3.7 mmol/L (3.5-5.5); Sodium 138 mmol/L (135-145)
[2023-07-14 16:22] VITALS: BMI 38.0
[2023-07-14 16:39] LABS: Glucose,Whole Blood 100 mg/dL (70-110)
[2023-07-14] MEDS ORDERED: VANCOMYCIN 1,750 MG in SODIUM CHLORIDE 0.9% 500 ML 500 ML IVPB ONE (18:00)
[2023-07-14 21:10] LABS: Glucose,Whole Blood 103 mg/dL (70-110)
[2023-07-14 21:21] LABS: HCT 38.7 % (39.6-50.0); HGB 12.3 g/dL (13.0-17.0); Immature Platelet Fraction 25.9 % (1.1-6.1); MCH 32.5 pg (27.0-32.0); MCHC 31.8 g/dL (32.0-37.0); MCV 102.4 FL (80.0-97.0); Mean Platelet Volume 14.3 FL (9.5-12.2); NRBC Per 100 WBC 0 X 10*3/uL (0.00-0.01); Platelet Count 48 X 10*3/uL (140-440); RBC 3.78 X 10*6/uL (4.40-5.60); RDW 14.4 % (11.5-14.5); WBC 9.05 X 10*3/uL (4.50-10.00)
[2023-07-14] MEDS: ATORVASTATIN 80 MG TAB PO SCH (21:25)
[2023-07-14] MEDS: MONTELUKAST 10 MG TAB PO SCH (21:25)
--- NOTE | 2023-07-14 22:44 | OP ---
OPERATIVE REPORT DATE OF SERVICE : PREOPERATIVE DIAGNOSIS: Acute on chronic renal failure. POSTOPERATIVE DIAGNOSIS: Acute on chronic renal failure. PROCEDURES PERFORMED: 1. Ultrasound-guided 20 cm dialysis catheter placed, right jugular approach. 2. Removal of right femoral dialysis catheter. DESCRIPTION OF PROCEDURE: The patient was brought to the [facility]. Right side of the neck and chest was prepped and draped in usual sterile manner. 1% lidocaine infiltrated in the neck area. Ultrasound-guided micropuncture introduced to the right jugular vein, micropuncture guidewire was passed and 4-Kiswahili sheath advanced on top of the guidewire. After that, we created a tunnel. Through the tunnel, we brought 23 cm dialysis catheter. Regular guidewire was passed which was parked in the inferior vena cava. Then dilator was advanced. Then, sheath was advanced on top of the guidewire. Through the sheath, we introduced the dialysis catheter. Tip of catheter in superior vena cava and atrial junction. Flushed with heparin saline and hep-locked, secured with 3-0 nylon and 3-0 Vicryl. Then right groin catheter was removed, pressure was held, and the patient tolerated the procedure well. MMODL / IJN: [id number] /
[2023-07-15 06:05] LABS: Glucose,Whole Blood 71 mg/dL (70-110)
[2023-07-15] MEDS: INSULIN ASPART (NovoLOG) 100 UNIT/ML VIAL SQ SCH ×4 (06:27→21:06)
[2023-07-15] MEDS: MIDODRINE 5 MG TAB PO SCH ×3 (06:28→17:27)
[2023-07-15] MEDS: FAMOTIDINE 20 MG/2 ML VIAL IV SCH (08:15)
[2023-07-15] MEDS: IPRATROPIUM-ALBUTEROL 3 ML NEB INHALATION SCH ×4 (09:07→19:59)
--- NOTE | 2023-07-15 10:13 | P.PN ---
Subjective Patient is seen in follow-up for acute kidney injury on chronic kidney disease. Started on hemodialysis 07/06/2023. Permacath placed 07/14/2023. States he is voiding very little. Vital signs are stable. General: Resting in bed. HEENT: On NC. LUNGS: Scattered rhonchi. HEART: Rate and Rhythm are regular. ABDOMEN: Nontender. EXTREMITITES: Trace edema. Objective - Vital Signs Vital signs: Vital Signs Temp 97.9 F 07/15/23 07:56 Pulse 70 07/15/23 07:56 Resp 16 07/15/23 07:56 BP 106/69 07/15/23 07:56 Pulse Ox 96 07/15/23 07:56 FiO2 50 07/15/23 03:39 Intake & Output 07/14/23 07/15/23 07/15/23 18:59 06:59 18:59 Intake Total 500 Output Total 2300 675 75 Balance -1800 -675 -75 Weight 116.8 kg Intake: Oral 100 Hemodialysis 400 Output: Urine 300 675 75 Uretheral (Gordon) 100 Hemodialysis 2000 Other: Voiding Method Indwelling Catheter Urinal ABP, PAP, CO, CI - Last Documented Arterial Blood Pressure 98/49 - Labs CBC & Chem 7: 07/14/23 08:45 07/14/23 08:45 Labs: Abnormal Lab Results - Last 24 Hours (Table) 07/14/23 07/14/23 Range/Units 08:45 08:45 RBC 3.78 L (4.40-5.60) X 10*6/uL Hgb 12.3 L (13.0-17.0) g/dL Hct 38.7 L (39.6-50.0) % MCV 102.4 H (80.0-97.0) FL MCH 32.5 H (27.0-32.0) pg MCHC 31.8 L (32.0-37.0) g/dL Plt Count 48 L (140-440) X 10*3/uL MPV 14.3 H (9.5-12.2) FL Immature Plt Fraction 25.9 H (1.1-6.1) % Anion Gap 13.50 H (4.00-12.00) mmol/L Creatinine 3.4 H (0.6-1.5) mg/dL Est GFR (CKD-EPI) 18 L (>=60) BUN/Creatinine Ratio 5.88 L (12.00-20.00) Ratio Calcium 8.3 L (8.7-10.3) mg/dL Assessment and Plan Plan: Assessment: 1. Acute kidney injury secondary to ATN secondary to cardiorenal syndrome. Started on hemodialysis 07/06/2023. Permacath placed 07/14/2023. No hydronephrosis noted on kidney ultrasound. 2. Chronic kidney disease stage IV with baseline creatinine near 2 secondary to nephrosclerosis. 3. Acute on chronic diastolic CHF with severe aortic stenosis and mild to moderate tricuspid regurgitation. 4. Hypokalemia from poor intake. Replaced. 5. Large pericardial effusion status post pericardiocentesis this admission with over 1 L drained. 6. Hypercalcemia with concern for underlying primary hyperparathyroidism. Sensipar currently held as calcium is on the lower side. Workup from June 2023 showed PTH of 52.6, calcitriol level of 53, vitamin D level of 58.6, Eliseo level of 25. No Bence-Franks proteins were noted and urine immunofixation. 7. Hypernatremia from lack of oral water intake. Resolved. 8. Pneumonia on antibiotics. Plan: Hemodialysis tomorrow. He will be maintained on Thursday schedule outpatient at [facility]. Maintain midodrine. Continue to monitor renal function and urine output. Monitor vancomycin levels. Dose to be adjusted for renal function. Follow-up PTH related peptide. Follow-up parathyroid nuclear scan. Maintain torsemide. Phosphorus level 3.5 dated 07/12/2023.
[2023-07-15] MEDS: TORSEMIDE 20 MG TAB PO SCH (10:17)
[2023-07-15] MEDS: FOLIC ACID 1 MG TAB PO SCH (10:18)
[2023-07-15] MEDS: AMIODARONE 200 MG TAB PO SCH ×2 (10:18→20:40)
[2023-07-15] MEDS: LEVOFLOXACIN 250 MG TAB PO SCH (10:18)
[2023-07-15] MEDS: METOPROLOL TARTRATE 12.5 MG TAB PO SCH ×2 (10:18→20:40)
[2023-07-15] MEDS: SENNOSIDES 8.6 MG TAB PO SCH (10:18)
[2023-07-15 11:25] LABS: Glucose,Whole Blood 76 mg/dL (70-110)
--- NOTE | 2023-07-15 13:10 | NM ---
EXAMINATION TYPE: NM parathyroid DATE OF EXAM: 07/15/2023 COMPARISON: NONE CLINICAL INDICATION: Male, 73 years old with history of hypercalcemia; TECHNIQUE: Following administration of 25.6 mCi Tc99m Sestamibi. Anterior projection images of the neck and ches t were obtained 10 minutes and 3 hours post injection FINDINGS: Thyroid tracer washout: Delayed images demonstrate near-complete tracer washout from the thyroid. Parathyroid uptake: None. The two-hour delayed images do not demonstrate any focal abnormal persisten t uptake in the region of the parathyroid glands to suggest parathyroid adenoma. Normal uptake: There is physiological tracer uptake in the myocardium, liver, salivary glands, and th yroid gland. IMPRESSION: Normal parathyroid imaging study. No evidence for mediastinal uptake to suggest mediastinal parathyro id adenoma
--- NOTE | 2023-07-15 13:11 | P.PN ---
Subjective Progress Note Date: 07/15/23 The patient is seen today 07/14/2023 in follow-up on the regular medical floor. He is awake and alert in no acute distress. He is resting comfortably in bed. He is maintaining O2 saturations in the 90s on 6 L high flow nasal cannula. Continues to be treated for right lower lobe pneumonia. He remains on vancomycin and Levaquin. He also has diastolic congestive heart failure. He is receiving hemodialysis. A goal of 2 L to be removed. A permacath is being placed today. Blood cultures revealed no growth. Pericardial fluid cultures revealed no growth. Glucose 88. He remains on bronchodilators. The patient is seen today 07/15/2023 in follow-up on the regular medical floor. He is currently sitting up in a chair. Awake and alert in no acute distress. Denies any worsening shortness of breath, cough or congestion. He is maintaining O2 saturation in the mid 90s on 4 L/m per nasal cannula. His been afebrile. Hemodynamically stable. He did undergo a parathyroid nuclear scan this morning. He did undergo a permacath placement yesterday. He was initiated on hemodialysis back on 07/06/2023. He will be on a Thursday schedule. The plan is for discharge to ECF in [place] and to follow-up in the [facility] hemodialysis center. Pericardial fluid revealed no growth. No malignancy. Blood cultures revealed no growth. Random vancomycin level 24.0. Glucose 76. Remains on vancomycin. Continued on bronchodilators. Objective - Vital Signs Vital signs: Vital Signs Temp 97.9 F 07/15/23 07:56 Pulse 92 07/15/23 12:01 Resp 16 07/15/23 07:56 BP 106/69 07/15/23 07:56 Pulse Ox 97 07/15/23 11:55 FiO2 50 07/15/23 03:39 Intake & Output 07/14/23 07/15/23 07/15/23 18:59 06:59 18:59 Intake Total 500 500 Output Total 2300 675 75 Balance -1800 -5 457 Weight 116.8 kg Intake: Intake, IV Titration 500 Amount Vancomycin 1,750 mg In 500 Sodium Chloride 0.9% 500 ml 500 ml @ 167 mls/hr IVPB ONCE ONE Rx#: [id number] Oral 100 Hemodialysis 400 Output: Urine 300 675 75 Uretheral (Gordon) 100 Hemodialysis 1999 Other: Voiding Method Indwelling Catheter Urinal ABP, PAP, CO, CI - Last Documented Arterial Blood Pressure 98/49 - Exam GENERAL EXAM: Alert, 73-year-old male, weak, sitting up in a chair, on 4 L nasal cannula, comfortable in no apparent distress. HEAD: Normocephalic. EYES: Normal reaction of pupils, equal size. NOSE: Clear with pink turbinates. THROAT: No erythema or exudates. NECK: No masses, no JVD. Right jugular hemodialysis catheter in place CHEST: No chest wall deformity. LUNGS: Equal air entry with coarse crackles in the right lung base. CVS: S1 and S2 normal with an audible murmur, regular rhythm. ABDOMEN: No hepatosplenomegaly, normal bowel sounds, no guarding or rigidity. SPINE: No scoliosis or deformity SKIN: No rashes CENTRAL NERVOUS SYSTEM: No focal deficits, tone is normal in all 4 extremities. EXTREMITIES: Right femoral hemodialysis removed. There is no peripheral edema. No clubbing, no cyanosis. Peripheral pulses are intact. - Labs CBC & Chem 7: 07/14/23 08:45 07/14/23 08:45 Labs: Abnormal Lab Results - Last 24 Hours (Table) 07/14/23 07/14/23 Range/Units 08:45 08:45 RBC 3.78 L (4.40-5.60) X 10*6/uL Hgb 12.3 L (13.0-17.0) g/dL Hct 38.7 L (39.6-50.0) % MCV 102.4 H (80.0-97.0) FL MCH 32.5 H (27.0-32.0) pg MCHC 31.8 L (32.0-37.0) g/dL Plt Count 48 L (140-440) X 10*3/uL MPV 14.3 H (9.5-12.2) FL Immature Plt Fraction 25.9 H (1.1-6.1) % Anion Gap 13.50 H (4.00-12.00) mmol/L Creatinine 3.4 H (0.6-1.5) mg/dL Est GFR (CKD-EPI) 18 L (>=60) BUN/Creatinine Ratio 5.88 L (12.00-20.00) Ratio Calcium 8.3 L (8.7-10.3) mg/dL Assessment and Plan Assessment: Acute on chronic hypoxemic and hypercapnic respiratory failure. Respiratory failure is multifactorial. Initially the patient a large pericardial effusion probably related to chronic kidney disease. The patient underwent pericardial w indow. Currently he has significant consolidation of the right lung highly suspicious for a pneumonia. Note that this pulmonary infiltration developed during his current hospital stay. Initial chest x ray at time of admission showed no significant pneumonias. At the same time, he has small bilateral pleural effusions. Oxygen is improved and the patient is currently on 4 L of oxygen by nasal cannula. No signs of any acute respiratory distress. Repeat chest x-ray from today shows improvement yet persistent consolidation of the right lung. Overall clinical condition is improved considerably. Pericardial effusion, S/P pericardial window, 06/29/2023, POD #15 there is seen, cultures are negative, cytology from the pericardial fluid was also negative or any malignancy. Hospital-acquired right lung pneumonia and the patient is currently on levaquin and vancomycin, no significant interval change on the chest x-ray findings. Unable to collect a sputum sample. Note that the Zosyn was started on 07/05/2023 and the patient is completing his seventh day of treatment. Is also on vancomycin. Zosyn was subsequently discontinued and the patient was placed on by mouth Levaquin. Episodic hypotension, currently on low-dose pressors .The patient was also started on midodrine Chronic Diastolic CHF. Acute on chronic kidney disease. Patient is currently undergoing daily hemodialysis, plan is for permacath placement today Metabolic encephalopathy, improved and the patient is adequately communicating at this point in time. Mental status is appropriate Morbid obesity. Chronic atrial fibrillation, with paroxysmal atrial fibrillation/RVR. Rate is under better control with a combination of amiodarone and metoprolol. Patient is on Eliquis Moderately severe aortic stenosis. Obstructive sleep apnea syndrome. History of alcoholism. Hyperlipidemia. Thrombocytopenia evolved during this current hospitalization. Rule out secondary to sepsis/drug induced. Plan: The patient was seen and evaluated Medications and labs reviewed Currently stable on 4 L high flow nasal cannula To be tapered down as tolerated Permacath placed Parathyroid scan pending Plan is for subacute rehab with outpatient hemodialysis I have personally seen and examined the patient, performed the documentation and the assessment and plan as written. Number of minutes spent on the visit: 10.
[2023-07-15 16:33] LABS: Glucose,Whole Blood 93 mg/dL (70-110)
[2023-07-15] MEDS: ATORVASTATIN 80 MG TAB PO SCH (20:40)
[2023-07-15] MEDS: MONTELUKAST 10 MG TAB PO SCH (20:40)
[2023-07-15 20:55] LABS: Glucose,Whole Blood 94 mg/dL (70-110)
[2023-07-16 02:32] VITALS: RESP 18
[2023-07-16 06:07] LABS: Glucose,Whole Blood 72 mg/dL (70-110)
[2023-07-16] MEDS: INSULIN ASPART (NovoLOG) 100 UNIT/ML VIAL SQ SCH ×2 (06:07→11:31)
--- NOTE | 2023-07-16 08:26 | P.PN ---
Subjective This is a pleasant 73 years old male with multiple medical problems including Atrial Fibrillation, Heart Failure, COPD, GI Bleed, Hyperlipidemia, Hypertension, chronic kidney disease/CPAP/BIPAP,Hiatal hernia, cateracts, d iverticulosis, CPAP use, Falls, Patient presents because transferred from [facility] for respiratory failure, on arrival he was hypotensive. He was recently in the hospital 06/17-06/19 for hypercalcemia and he was discharged on Sensipar which is thought secondary to hyperparathyroidism. Patient currently lives in the ICU using the BiPAP machine which limits history taken and provide information on the top of that patient is confused but he follows commands appropriately. He can answer some questions like he says he has no pain. He is asking if he can smoke now we explained for him he cannot declines the nicotine patch. Patient currently mildly tachycardic around 108, blood pressure is better 101/81 while he is on pressors. He is on BiPAP machine and he had a temperature of 98. 6. showing creatinine of 5.2 with baseline 2.2-2.9, calcium slightly elevated at 11.5. WBC is 15.7 while on steroids, while rest of CBC is unremarkable TSH is elevated at 4.7 but free T4 is normal [place] 0[place] [id number] Ultrasound showing on obstructive uropathy but there is acute cholecystitis with thickened wall. Chest x-ray is suspicious for cardiomegaly and pulmonary edema EKG showing A. fib with rate of 82 b per minute. Patient currently in the ICU on amiodarone drip, Lasix drip at 10 mg per hour , levophed at 0.03 and Solu-Medrol 60 mg, Precedex and IV thiamine 06/28/2023 patient cannot get off the BiPAP overnight and early this morning, he desaturates easily. He remains on amiodarone drip, Lasix drip at 10 mg per hour, and a small dose of levophed at 0.03 and Precedex and thiamine. Distal, not tolerate oral medication and his Eliquis switch to Lovenox 120 mg once daily because of his high creatinine This pH 7.3, pCO2 50 and PaO2 of 76, which is a slightly better than yesterday. Creatinine coming down to 4.4. Ca is also coming down 10.1. WBC still elevated at 13.9 but also patient on steroids. General surgery R following for acute cholecystitis, HIDA scan is ordered, currently on Flagyl and Rocephin 06/29/2023 Patient evaluated today in the ICU. Has been transitioned to airvo. HIDA scan has been placed on hold today as there is findings of large pericardial effusion and cardiothoracic has been consulted. Echocardiogram shows normal LV function, with severe aortic stenosis, mild to moderate TR, mild MR, mild pulmonary hypertension, large pericardial effusion with no clear tamponade. He also had chest xray showing cardiomegaly with mild bibasilar effusions. Mild at the right base. Correlate for CHF. Small amount of atelectasis at the right base. Patient will be going for a pericardial window today. He continues on amiodarone gtt, continues on IV Lasix at 10 mg per hour, he is also on precedex and levophed. Patient is anticoagulated with lovenox. He is on IV ceftriaxone and IV flagyl. White blood cell count today is 13.7, BUN 117, creatinine 3.83. Procalcitonin 0.47. He is afebrile, heart rate in the 110s. Blood pressure marginal 84/57. 06/30/2023 Patient evaluated in the ICU. Status post pericardial window. No plans for HIDA scan of yet. He is more awake and alert today and responding to questions appropriately. He feels his leg swelling is much improved. He remains on airvo high flow oxygen support at 60L 93% FiO2. Saturations around 93%. He remains in and out of a.fib with RVR he has been taken off the amio gtt and placed on IV cardizem. Plans to transition off the lasix gtt today. He is on IV ceftriaxone, IV flagyl, IV solumedrol. He remains on a small dose of levo. Chest xray today showing moderate cardiomegaly with underlying pulmonary vascular congestion, small left greater than right pleural effusions with adjacent atelectasis and or consolidation. Some partially improving aeration of the left base compared to prior exam. Limited echocardiogram today showing small pericardial effusion. 07/01/2023 Patient remains in the ICU, his sitting in chair on nerve or with a flow rate of 60 L/m some saturation of FiO2 of 93%. He denies chest pain, mildly tachypneic. He is obese with mild fluid overload. His blood pressure is 107/58, heart rate 101, A. fib while he is on amiodarone and Cardizem drip Also is a small dose of pressors with Levophed at 0.03. Sodium is elevated at 149 and currently he is on D5W at 50 mL per hour. He does not show signs symptoms of alcohol withdrawal, he is on broad-spectrum antibiotics of Rocephin and Flagyl started by surgery team for suspected gallbladder disease. Currently he denies any abdominal pain. Remains on IV Solu-Medrol 60 mg as well. Creatinine improving down to 4. Cholecystectomy. 3. WBC 11.3. Cardiothoracic surgery followed closely and he is status post pericardial window and drainage of pericardial effusion of 1 L and today more than 200 mL. 07/02/2023 Patient in the ICU, sitting up in chair this morning, he looks more awake comfortable and relaxed however he still in mild respiratory distress and mild tachypnea. His oxygen requirement is less today and his currently on 7 L at high flow nasal cannula. Blood pressure 111/59, slightly tachypneic about 20-24 and he is afebrile. Creatinine improvement 3.6 sodium improving 147, still have mild leukocytosis but also is on steroids. Chest x-ray today I reviewed by myself showing better variation on the right lower zone but increased pleural effusion on the left side with possible adjacent atelectasis. Distal on Solu-Medrol 60 mg, broad-spectrum antibiotics by surgery team for Rocephin and oral Flagyl suspected for acute cholecystitis, patient currently he denies any right upper quadrant abdominal pain or tenderness. Remains on D5W at 75 mL/h. His metoprolol, torsemide on Eliquis remaining on hold currently. Resume the care of the patient 07/07/2023 Patient conditions worsened over the last 2-3 days, Currently he is on BiPAP lethargic and encephalopathic Is mildly tachypneic Chest x-ray showing right-sided pneumonia and pleural effusion Currently covered with Zosyn Started on low-dose pressors with Levophed today. 07/08/2023 Patient remains in the ICU,. Lethargic and weak, he's BiPAP dependent for aspiration pneumonia versus hospital-acquired pneumonia with chest x-ray showing bilateral basal infiltrates. Patient currently covered with Zosyn, IV vancomycin was added today. He is hemodynamically the same, still requiring pressors, blood pressure 111/59. Tachycardic and tachypneic. He is on BiPAP. His creatinine improving 2.9, WBC 12.7, sodium improved to 134, 07/09/2023 Patient seen and examined today in the ICU, his more awake and alert, he is on BiPAP with FiO2 of 50% His chest x-ray showing improvement also while his on IV vancomycin and Zosyn Is getting hemodialysis and his dialysis catheter needs to be changed. 1.8 L has been taken out. Another Hemodialysis will be on 07/11. His home dose of Eliquis 5 mg was started today at 2.5 mg because of his kidney problem for his chronic A. fib. 07/10/2023 Patient remains in the ICU, he is slightly more awake today, he is on high flow nasal cannula with FiO2 of 58% and a rate of 45 L/m His stoma at the tachycardic and tachypneic but improving. His creatinine 2.4 and received extra dose of IV Lasix today WBC is back to reference range 9.7, sodium 135. Chest x-ray showing slight improvement of bilateral infiltrates. Patient remains on IV vancomycin and Zosyn His on Eliquis 2.5 mg for A. fib Also he is on pressors with Levophed 07/11/2023 Patient continued improving slowly and gradually and he remains on BiPAP, more awake but still in respiratory distress. Remains on IV vancomycin and Zosyn Is getting hemodialysis PTH related peptide and nuclear scan ordered. Also he was placed on IV Lasix 80 mg daily, Eliquis 2.5 mg, 07/12/2023 Patient breathing status is improving, during the day he is on 6 L oxygen via nasal cannula at that site is on BiPAP Although his generally weak. His creatinine is improving with hemodialysis Parathyroid hormone scan and related peptide a pending Repeat chest x-ray showing improvement over the last few days but there is still significant consolidation in the right middle lung. Radiologist recommended CAT scan with IV contrast but this relatively contraindicated with high creatinine. Patient continue with IV vancomycin and Zosyn. He is also on oral Lasix 80 mg, no steroids and Eliquis 2.5 mg given his A. fib and RVR 07/13/2023 Patient continued to improve and his oxygen requirement of 6 L/m Chest x-ray showing better variation and thus consolidation of both significant on the right side. An IV vancomycin and Zosyn switched to Levaquin Patient transferred to the office today Her thyroid scan are pending Continue with dialysis per nephrology he Is also on Eliquis. 07/14/2023 Patient will go to the ICU and his oxygen requirements is improving His breathing more easily every day. He remains on antibiotics which were adjusted to IV vancomycin and Levaquin renal dose Chest x-ray showing improvement but persistent of right pulmonary area consolidation most likely related to pneumonia He is hemodynamically stable and still undergoing hemodialysis, his hemodialysis catheter was changed 3 days ago. His Eliquis for A. fib and RVR was held 2 days ago because of his thrombocytopenia, his platelet dropped to 30s 40s while he keep monitoring for now He is also on diuretics Objective - Vital Signs Vital signs: Vital Signs Temp 98.6 F 07/14/23 14:00 Pulse 97 07/14/23 14:00 Resp 17 07/14/23 14:00 BP 110/70 07/14/23 14:00 Pulse Ox 97 07/14/23 14:00 FiO2 50 07/14/23 04:15 Intake & Output 07/13/23 07/14/23 07/14/23 18:59 06:59 18:59 Intake Total 500 Output Total 80 1999 Balance -80 -1500 Intake: Oral 100 Hemodialysis 400 Output: Urine 80 Hemodialysis 1999 Other: Voiding Method Indwelling Catheter Indwelling Catheter Indwelling Catheter # Bowel Movements 1 ABP, PAP, CO, CI - Last Documented Arterial Blood Pressure 98/49 - Exam --GENERAL: The patient is awake , lethargic on BiPAP HEENT: Pupils are round and equally reacting to light. EOMI. No scleral icterus. No conjunctival pallor. Normocephalic, atraumatic. No pharyngeal erythema. No thyromegaly. CARDIOVASCULAR: S1 and S2 present. No murmurs, rubs, or gallops. -PULMONARY: Chest is limited air entry on both sides, slightly better than yesterday, no wheezing , no crackles. Mildly tachypneic while he is on BiPAP ABDOMEN: Soft, nontender, nondistended, normoactive bowel sounds. No palpable organomegaly. MUSCULOSKELETAL: No joint swelling or deformity. EXTREMITIES: No cyanosis, clubbing, or pedal edema. NEUROLOGICAL: Gross neurological examination did not reveal any focal deficits. SKIN: No rashes. no petechiae. - Labs CBC & Chem 7: 07/14/23 08:45 07/14/23 08:45 Labs: Abnormal Lab Results - Last 24 Hours (Table) 07/14/23 Range/Units 08:45 Anion Gap 13.50 H (4.00-12.00) mmol/L Creatinine 3.4 H (0.6-1.5) mg/dL Est GFR (CKD-EPI) 18 L (>=60) BUN/Creatinine Ratio 5.88 L (12.00-20.00) Ratio Calcium 8.3 L (8.7-10.3) mg/dL Assessment and Plan Assessment: Right lower lobe pneumonia Acute hypoxic respiratory failure requiring BiPAP COPD with exacerbation, resolved Acute on chronic diastolic CHF with a preserved ejection fraction Possible acute cholecystitis, versus intra-abdominal infection on broad-spectrum antibiotic, improved Pericardial effusion status post pericardial window for drainage A. fib and RVR Acute kidney injury on chronic kidney disease stage IV Moderate to severe aortic stenosis Hypercalcemia secondary to hyperparathyroidism on treatment Alcohol use disorder Nicotine dependence Chronic hypoxic respiratory failure Morbid obesity with BMI 41.7. Plan: Continue with oral Levaquin, and IV vancomycin Continue with oxygen to keep saturation more than 90% On hemodialysis Pulmonary team on the case General surgery R were consulted for acute cholecystitis, currently resolved Several consultants of the case with the pulmonary/critical care team, nephrology, neurology. Cardiothoracic surgery team Labs and medication were reviewed.. Continue same treatment. Continue with symptomatic treatment. Resume home medication. Monitor labs and vitals. DVT and GI prophylaxis. Further recommendations as per clinical course of the patient DVT prophylaxis: eliquis on hold because of thrombocytopenia GI Prophylaxis: Pepcid PT/OT: differed Prognosis is guarded
--- NOTE | 2023-07-16 08:29 | P.PN ---
Subjective This is a pleasant 73 years old male with multiple medical problems including Atrial Fibrillation, Heart Failure, COPD, GI Bleed, Hyperlipidemia, Hypertension, chronic kidney disease/CPAP/BIPAP,Hiatal hernia, cateracts, d iverticulosis, CPAP use, Falls, Patient presents because transferred from [facility] for respiratory failure, on arrival he was hypotensive. He was recently in the hospital 06/17-06/19 for hypercalcemia and he was discharged on Sensipar which is thought secondary to hyperparathyroidism. Patient currently lives in the ICU using the BiPAP machine which limits history taken and provide information on the top of that patient is confused but he follows commands appropriately. He can answer some questions like he says he has no pain. He is asking if he can smoke now we explained for him he cannot declines the nicotine patch. Patient currently mildly tachycardic around 108, blood pressure is better 101/81 while he is on pressors. He is on BiPAP machine and he had a temperature of 98. 6. showing creatinine of 5.2 with baseline 2.2-2.9, calcium slightly elevated at 11.5. WBC is 15.7 while on steroids, while rest of CBC is unremarkable TSH is elevated at 4.7 but free T4 is normal [place] 0[place] [id number] Ultrasound showing on obstructive uropathy but there is acute cholecystitis with thickened wall. Chest x-ray is suspicious for cardiomegaly and pulmonary edema EKG showing A. fib with rate of 82 b per minute. Patient currently in the ICU on amiodarone drip, Lasix drip at 10 mg per hour , levophed at 0.03 and Solu-Medrol 60 mg, Precedex and IV thiamine 06/28/2023 patient cannot get off the BiPAP overnight and early this morning, he desaturates easily. He remains on amiodarone drip, Lasix drip at 10 mg per hour, and a small dose of levophed at 0.03 and Precedex and thiamine. Distal, not tolerate oral medication and his Eliquis switch to Lovenox 120 mg once daily because of his high creatinine This pH 7.3, pCO2 50 and PaO2 of 76, which is a slightly better than yesterday. Creatinine coming down to 4.4. Ca is also coming down 10.1. WBC still elevated at 13.9 but also patient on steroids. General surgery R following for acute cholecystitis, HIDA scan is ordered, currently on Flagyl and Rocephin 06/29/2023 Patient evaluated today in the ICU. Has been transitioned to airvo. HIDA scan has been placed on hold today as there is findings of large pericardial effusion and cardiothoracic has been consulted. Echocardiogram shows normal LV function, with severe aortic stenosis, mild to moderate TR, mild MR, mild pulmonary hypertension, large pericardial effusion with no clear tamponade. He also had chest xray showing cardiomegaly with mild bibasilar effusions. Mild at the right base. Correlate for CHF. Small amount of atelectasis at the right base. Patient will be going for a pericardial window today. He continues on amiodarone gtt, continues on IV Lasix at 10 mg per hour, he is also on precedex and levophed. Patient is anticoagulated with lovenox. He is on IV ceftriaxone and IV flagyl. White blood cell count today is 13.7, BUN 117, creatinine 3.83. Procalcitonin 0.47. He is afebrile, heart rate in the 110s. Blood pressure marginal 84/57. 06/30/2023 Patient evaluated in the ICU. Status post pericardial window. No plans for HIDA scan of yet. He is more awake and alert today and responding to questions appropriately. He feels his leg swelling is much improved. He remains on airvo high flow oxygen support at 60L 93% FiO2. Saturations around 93%. He remains in and out of a.fib with RVR he has been taken off the amio gtt and placed on IV cardizem. Plans to transition off the lasix gtt today. He is on IV ceftriaxone, IV flagyl, IV solumedrol. He remains on a small dose of levo. Chest xray today showing moderate cardiomegaly with underlying pulmonary vascular congestion, small left greater than right pleural effusions with adjacent atelectasis and or consolidation. Some partially improving aeration of the left base compared to prior exam. Limited echocardiogram today showing small pericardial effusion. 07/01/2023 Patient remains in the ICU, his sitting in chair on nerve or with a flow rate of 60 L/m some saturation of FiO2 of 93%. He denies chest pain, mildly tachypneic. He is obese with mild fluid overload. His blood pressure is 107/58, heart rate 101, A. fib while he is on amiodarone and Cardizem drip Also is a small dose of pressors with Levophed at 0.03. Sodium is elevated at 149 and currently he is on D5W at 50 mL per hour. He does not show signs symptoms of alcohol withdrawal, he is on broad-spectrum antibiotics of Rocephin and Flagyl started by surgery team for suspected gallbladder disease. Currently he denies any abdominal pain. Remains on IV Solu-Medrol 60 mg as well. Creatinine improving down to 4. Cholecystectomy. 3. WBC 11.3. Cardiothoracic surgery followed closely and he is status post pericardial window and drainage of pericardial effusion of 1 L and today more than 200 mL. 07/02/2023 Patient in the ICU, sitting up in chair this morning, he looks more awake comfortable and relaxed however he still in mild respiratory distress and mild tachypnea. His oxygen requirement is less today and his currently on 7 L at high flow nasal cannula. Blood pressure 111/59, slightly tachypneic about 20-24 and he is afebrile. Creatinine improvement 3.6 sodium improving 147, still have mild leukocytosis but also is on steroids. Chest x-ray today I reviewed by myself showing better variation on the right lower zone but increased pleural effusion on the left side with possible adjacent atelectasis. Distal on Solu-Medrol 60 mg, broad-spectrum antibiotics by surgery team for Rocephin and oral Flagyl suspected for acute cholecystitis, patient currently he denies any right upper quadrant abdominal pain or tenderness. Remains on D5W at 75 mL/h. His metoprolol, torsemide on Eliquis remaining on hold currently. Resume the care of the patient 07/07/2023 Patient conditions worsened over the last 2-3 days, Currently he is on BiPAP lethargic and encephalopathic Is mildly tachypneic Chest x-ray showing right-sided pneumonia and pleural effusion Currently covered with Zosyn Started on low-dose pressors with Levophed today. 07/08/2023 Patient remains in the ICU,. Lethargic and weak, he's BiPAP dependent for aspiration pneumonia versus hospital-acquired pneumonia with chest x-ray showing bilateral basal infiltrates. Patient currently covered with Zosyn, IV vancomycin was added today. He is hemodynamically the same, still requiring pressors, blood pressure 111/59. Tachycardic and tachypneic. He is on BiPAP. His creatinine improving 2.9, WBC 12.7, sodium improved to 134, 07/09/2023 Patient seen and examined today in the ICU, his more awake and alert, he is on BiPAP with FiO2 of 50% His chest x-ray showing improvement also while his on IV vancomycin and Zosyn Is getting hemodialysis and his dialysis catheter needs to be changed. 1.8 L has been taken out. Another Hemodialysis will be on 07/11. His home dose of Eliquis 5 mg was started today at 2.5 mg because of his kidney problem for his chronic A. fib. 07/10/2023 Patient remains in the ICU, he is slightly more awake today, he is on high flow nasal cannula with FiO2 of 58% and a rate of 45 L/m His stoma at the tachycardic and tachypneic but improving. His creatinine 2.4 and received extra dose of IV Lasix today WBC is back to reference range 9.7, sodium 135. Chest x-ray showing slight improvement of bilateral infiltrates. Patient remains on IV vancomycin and Zosyn His on Eliquis 2.5 mg for A. fib Also he is on pressors with Levophed 07/11/2023 Patient continued improving slowly and gradually and he remains on BiPAP, more awake but still in respiratory distress. Remains on IV vancomycin and Zosyn Is getting hemodialysis PTH related peptide and nuclear scan ordered. Also he was placed on IV Lasix 80 mg daily, Eliquis 2.5 mg, 07/12/2023 Patient breathing status is improving, during the day he is on 6 L oxygen via nasal cannula at that site is on BiPAP Although his generally weak. His creatinine is improving with hemodialysis Parathyroid hormone scan and related peptide a pending Repeat chest x-ray showing improvement over the last few days but there is still significant consolidation in the right middle lung. Radiologist recommended CAT scan with IV contrast but this relatively contraindicated with high creatinine. Patient continue with IV vancomycin and Zosyn. He is also on oral Lasix 80 mg, no steroids and Eliquis 2.5 mg given his A. fib and RVR 07/13/2023 Patient continued to improve and his oxygen requirement of 6 L/m Chest x-ray showing better variation and thus consolidation of both significant on the right side. An IV vancomycin and Zosyn switched to Levaquin Patient transferred to the office today Her thyroid scan are pending Continue with dialysis per nephrology he Is also on Eliquis. 07/14/2023 Patient will go to the ICU and his oxygen requirements is improving His breathing more easily every day. He remains on antibiotics which were adjusted to IV vancomycin and Levaquin renal dose Chest x-ray showing improvement but persistent of right pulmonary area consolidation most likely related to pneumonia He is hemodynamically stable and still undergoing hemodialysis, his hemodialysis catheter was changed 3 days ago. His Eliquis for A. fib and RVR was held 2 days ago because of his thrombocytopenia, his platelet dropped to 30s 40s while he keep monitoring for now He is also on diuretics 07/15/2023 His breathing is improving every day and currently on 4 L/m of oxygen Chest x-ray showing improvement Remains on oral Levaquin and IV vancomycin He continued with hemodialysis, permacath was placed yesterday. He tolerates well. Plan for him to go to subacute rehab with outpatient hemodialysis His Eliquis for A. fib is on hold for thrombocytopenia, platelet count 48k he Is on diuretic with torsemide 40 mg of daily Objective - Vital Signs Vital signs: Vital Signs Temp 98.0 F 07/15/23 14:30 Pulse 78 07/15/23 16:02 Resp 18 07/15/23 14:30 BP 87/60 07/15/23 14:30 Pulse Ox 99 07/15/23 14:30 FiO2 50 07/15/23 03:39 Intake & Output 07/14/23 07/15/23 07/15/23 18:59 06:59 18:59 Intake Total 500 700 Output Total 2300 675 75 Balance -1800 -675 625 Weight 116.8 kg Intake: Intake, IV Titration 500 Amount Vancomycin 1,750 mg In 500 Sodium Chloride 0.9% 500 ml 500 ml @ 167 mls/hr IVPB ONCE ONE Rx#: [id number] Oral 100 200 Hemodialysis 400 Output: Urine 300 675 75 Uretheral (Gordon) 100 Hemodialysis 1999 Other: Voiding Method Indwelling Catheter Urinal ABP, PAP, CO, CI - Last Documented Arterial Blood Pressure 98/49 - Exam --GENERAL: The patient is awake , lethargic on BiPAP HEENT: Pupils are round and equally reacting to light. EOMI. No scleral icterus. No conjunctival pallor. Normocephalic, atraumatic. No pharyngeal erythema. No thyromegaly. CARDIOVASCULAR: S1 and S2 present. No murmurs, rubs, or gallops. -PULMONARY: Chest is limited air entry on both sides, slightly better than yest erday, no wheezing , no crackles. Mildly tachypneic while he is on BiPAP ABDOMEN: Soft, nontender, nondistended, normoactive bowel sounds. No palpable organomegaly. MUSCULOSKELETAL: No joint swelling or deformity. EXTREMITIES: No cyanosis, clubbing, or pedal edema. NEUROLOGICAL: Gross neurological examination did not reveal any focal deficits. SKIN: No rashes. no petechiae. - Labs CBC & Chem 7: 07/14/23 08:45 07/14/23 08:45 Labs: Abnormal Lab Results - Last 24 Hours (Table) 07/14/23 Range/Units 08:45 RBC 3.78 L (4.40-5.60) X 10*6/uL Hgb 12.3 L (13.0-17.0) g/dL Hct 38.7 L (39.6-50.0) % MCV 102.4 H (80.0-97.0) FL MCH 32.5 H (27.0-32.0) pg MCHC 31.8 L (32.0-37.0) g/dL Plt Count 48 L (140-440) X 10*3/uL MPV 14.3 H (9.5-12.2) FL Immature Plt Fraction 25.9 H (1.1-6.1) % Assessment and Plan Assessment: Right lower lobe pneumonia Acute hypoxic respiratory failure requiring BiPAP COPD with exacerbation, resolved Acute on chronic diastolic CHF with a preserved ejection fraction Possible acute cholecystitis, versus intra-abdominal infection on broad-spectrum antibiotic, improved Pericardial effusion status post pericardial window for drainage A. fib and RVR Acute kidney injury on chronic kidney disease stage IV Moderate to severe aortic stenosis Hypercalcemia secondary to hyperparathyroidism on treatment Alcohol use disorder Nicotine dependence Chronic hypoxic respiratory failure Morbid obesity with BMI 41.7. Plan: Continue with oral Levaquin, and IV vancomycin Continue with oxygen to keep saturation more than 90% On hemodialysis Pulmonary team on the case General surgery R were consulted for acute cholecystitis, currently resolved Several consultants of the case with the pulmonary/critical care team, nephrology, neurology. Cardiothoracic surgery team Labs and medication were reviewed.. Continue same treatment. Continue with symptomatic treatment. Resume home medication. Monitor labs and vitals. DVT and GI prophylaxis. Further recommendations as per clinical course of the patient DVT prophylaxis: eliquis on hold because of thrombocytopenia GI Prophylaxis: Pepcid PT/OT: differed Prognosis is guarded
[2023-07-16] MEDS: IPRATROPIUM-ALBUTEROL 3 ML NEB INHALATION SCH ×3 (08:49→15:43)
[2023-07-16] MEDS: METOPROLOL TARTRATE 12.5 MG TAB PO SCH (09:03)
[2023-07-16] MEDS: MIDODRINE 5 MG TAB PO SCH ×2 (09:04→12:39)
[2023-07-16] MEDS: LEVOFLOXACIN 250 MG TAB PO SCH (09:05)
[2023-07-16] MEDS: FAMOTIDINE 20 MG/2 ML VIAL IV SCH (09:05)
[2023-07-16] MEDS: TORSEMIDE 20 MG TAB PO SCH (09:05)
[2023-07-16] MEDS: AMIODARONE 200 MG TAB PO SCH (09:05)
[2023-07-16] MEDS: FOLIC ACID 1 MG TAB PO SCH (09:05)
[2023-07-16] MEDS: SENNOSIDES 8.6 MG TAB PO SCH (09:05)
[2023-07-16 11:23] LABS: Glucose,Whole Blood 72 mg/dL (70-110)
--- NOTE | 2023-07-16 11:29 | P.PN ---
Subjective Patient is seen in follow-up for acute kidney injury on chronic kidney disease. Started on hemodialysis 07/06/2023. Permacath placed 07/14/2023. States he is voiding very little. No active complaints. Tolerating dialysis. Vital signs are stable. General: Resting in bed. HEENT: On NC. LUNGS: No audible rhonchi or wheezes. HEART: Rate and Rhythm are regular. ABDOMEN: Nontender. EXTREMITITES: Trace edema. Objective - Vital Signs Vital signs: Vital Signs Temp 98.8 F 07/16/23 06:46 Pulse 76 07/16/23 09:04 Resp 18 07/16/23 06:46 BP 99/65 07/16/23 06:46 Pulse Ox 97 07/16/23 08:49 FiO2 50 07/15/23 19:59 Intake & Output 07/15/23 07/16/23 07/16/23 18:59 06:59 18:59 Intake Total 700 Output Total 285 300 Balance 415 -300 Intake: Intake, IV Titration 500 Amount Vancomycin 1,750 mg In 500 Sodium Chloride 0.9% 500 ml 500 ml @ 167 mls/hr IVPB ONCE ONE Rx#: [id number] Oral 200 Output: Urine 285 300 Other: Voiding Method Urinal # Bowel Movements 1 ABP, PAP, CO, CI - Last Documented Arterial Blood Pressure 98/49 - Labs CBC & Chem 7: 07/14/23 08:45 07/14/23 08:45 Assessment and Plan Plan: Assessment: 1. Acute kidney injury secondary to ATN secondary to cardiorenal syndrome. Started on hemodialysis 07/06/2023. Permacath placed 07/14/2023. No hydronephrosis noted on kidney ultrasound. 2. Chronic kidney disease stage IV with baseline creatinine near 2 secondary to nephrosclerosis. 3. Acute on chronic diastolic CHF with severe aortic stenosis and mild to moderate tricuspid regurgitation. 4. Hypokalemia from poor intake. Replaced. 5. Large pericardial effusion status post pericardiocentesis this admission with over 1 L drained. 6. Hypercalcemia with concern for underlying primary hyperparathyroidism. Sensipar currently held as calcium is on the lower side. Workup from June 2023 showed PTH of 52.6, calcitriol level of 53, vitamin D level of 58.6, Eliseo level of 25. No Bence-Franks proteins were noted and urine immunofixation. No evidence of parathyroid adenoma noted on parathyroid nuclear scan. 7. Hypernatremia from lack of oral water intake. Resolved. 8. Pneumonia on antibiotics. Plan: Currently seen while undergoing hemodialysis. He will be maintained on Thursday schedule outpatient at [facility]. Maintain midodrine. Continue to monitor renal function and urine output. Monitor for renal recovery outpatient. Monitor vancomycin levels. Dose to be adjusted for renal function. Follow-up PTH related peptide. Maintain torsemide. Phosphorus level 3.5 dated 07/12/2023.
[2023-07-16 11:39] LABS: Basophils % (A) 1 %; Eosinophils # (A) 0.3 k/uL (0-0.7); Eosinophils % (A) 5 %; HCT 39.6 % (39.0-53.0); HGB 12.5 gm/dL (13.0-17.5); Hypochromasia Slight; Lymphocytes # (A) 0.7 k/uL (1.0-4.8); Lymphocytes % (A) 12 %; MCH 32.6 pg (25.0-35.0); MCHC 31.7 g/dL (31.0-37.0); Macrocytosis Slight; Mean Platelet Volume 12.9; Monocytes # (A) 0.5 k/uL (0-1.0); Monocytes % (A) 8 %; Neutrophils # (A) 4.5 k/uL (1.3-7.7); Neutrophils % (A) 72 %; RBC 3.84 m/uL (4.30-5.90); RDW 13.7 % (11.5-15.5); WBC 6.2 k/uL (3.8-10.6)
[2023-07-16 11:51] LABS: Platelet Count 41 k/uL (150-450)
[2023-07-16 14:13] VITALS: BP 87/61; PULSE 65; TEMP 97.4
[2023-07-16 16:07] LABS: African American GFR (CKD) 26 (>60 ml/min/1.73 sqM); Anion Gap 14 mmol/L; Blood Urea Nitrogen 11 mg/dL (9-20); Calcium 8.6 mg/dL (8.4-10.2); Carbon Dioxide 26 mmol/L (22-30); Chloride 97 mmol/L (98-107); Glucose 76 mg/dL (74-99); Non-African American GFR(CKD) 22 (>60 ml/min/1.73 sqM); Potassium 3.5 mmol/L (3.5-5.1); Sodium 137 mmol/L (137-145)
--- NOTE | 2023-07-16 16:11 | P.PN ---
Subjective Progress Note Date: 07/16/23 Principal diagnosis: Acute on chronic hypoxic and hypercapnic respiratory failure This is a 73-year-old white male with history of multiple medical problems including chronic congestive heart failure, COPD, chronic kidney disease, chronic hypoxic respiratory failure, obstructive sleep apnea syndrome, maintained on CPAP now patient was transferred from [facility] with 2 days history of increased shortness of breath. I have seen this patient in the past and his last evaluation in the hospital was on 02/16/2023. At that time the patient presented with acute on chronic hypoxic and hypercapnic respiratory failure with congestive heart failure and COPD. He should also had moderate severe aortic stenosis, and morbid obesity as well as chronic atrial fibrillation. Back then the patient was treated mostly aggressively with diuretics, and he was eventually discharged home after almost a week stay in the ICU. This time the patient has a very similar presentation, I saw the patient in the ER, and his is at bedside. Patient is now on BiPAP which I have adjusted to IPAP of 16 and EPAP 6, and he is also on 100% FiO2. ABG is pending, earlier venous ABG showed a pCO2 of 120 and pH of 7.01. After I evaluated the patient, I recommended immediate transfer to the ICU ABG, ultrasound of the chest, I cut down his IV fluid to KVO, started the patient on Lasix drip at 10 mg per hour. And explained to the that the patient may require intubation mechanical ventilation if his condition does not improve much and a short period of time. For low blood pressure may consider using norepinephrine, would definitely avoid using fluids at this point. Labs were reviewed chest x-ray was reviewed his BUN is 99 creatinine is 5.25, and his creatinine only a few days ago was 2.07. Apparently he is developing a worsening picture of chronic kidney disease. Could be cardiorenal. BNP level is 14,900 Reevaluated today on 06/27/2023, patient remains in the ICU, remains on Lasix drip at 10 mg per hour, amiodarone 0.5 mg/m for atrial fibrillation/RVR which she developed last night patient does have chronic history of atrial fibrillation remains on norepinephrine at 0.04 mcg/kg/m, he is on Precedex at 0.2 mcg/kg/hr, IV fluid at 20 mL per hour in the form of 0.9 normal saline. Blood pressure is noted to be borderline. Hence patient had a left subclavian t riple-lumen catheter placed and a left radial arterial line placement. Repeat ABG this morning continues to show significant metabolic and respiratory acidosis pO2 of 79 pCO2 62 pH of 7.21, potassium is up to 5.19, patient was given 1 amp of bicarb for his acidosis. His BUN is 107 creatinine 5.17, slightly better compared to yesterday, patient is being evaluated by nephrology. Remains on BiPAP at 16/6/75% FiO2. And overall his clinical status is critically ill/marginal. Patient is definitely high risk for intubation mechanical ventilation, the patient and his are both aware of this, however at this point I will hold on mechanically ventilated the patient. We'll continue BiPAP, continue Lasix drip, and continue pressors patient may eventually require hemodialysis. Ultrasound of the chest showed small bilateral pleural effusions left more so than right, the left sided pocket is not large enough to consider safe left sided thoracentesis. Patient was reevaluated today on 06/28/2023, remains in the ICU, remains on Lasix drip at 10 mg per hour, remains on BiPAP at 12/6/75%. Patient is still requiring Precedex at 0.6 mcg/kg/h, norepinephrine at 0.03 mcg/kg/m. Patient is negative balance over the last 24 hours about 2 L. And he is steadily improving but remains critically ill, and simply requiring pressors. ABG showed a pO2 of 76 pCO2 of 50 pH of 7.34, significantly improved compared to his initial ABG on admission where his pCO2 was in the 120 range. Patient remains on Rocephin and Flagyl, his CT of the abdomen raised the possibility of acute cholecystitis, but clinically I do not see any evidence of cholecystitis, the patient has no pain or tenderness in the right upper quadrant. Being considered for a HIDA scan. CT of the brain came back negative for acute process. WBC count today is 13.9 hemoglobin 15.4. Platelets are 226, basic metabolic profile is normal BUN is 111 creatinine is down to 4.44 improving in spite of aggressive diuresis on this patient. If her enzymes are basically normal. Chest x-ray this morning showed cardiomegaly, pulmonary vascular congestion, bilateral pleural effusions, however based on ultrasound, the left-sided pleural effusion was not large enough to consider safe thoracentesis The patient is seen today 07/14/2023 in follow-up on the regular medical floor. He is awake and alert in no acute distress. He is resting comfortably in bed. He is maintaining O2 saturations in the 90s on 6 L high flow nasal cannula. Continues to be treated for right lower lobe pneumonia. He remains on vancomycin and Levaquin. He also has diastolic congestive heart failure. He is receiving hemodialysis. A goal of 2 L to be removed. A permacath is being placed today. Blood cultures revealed no growth. Pericardial fluid cultures revealed no growth. Glucose 88. He remains on bronchodilators. The patient is seen today 07/15/2023 in follow-up on the regular medical floor. He is currently sitting up in a chair. Awake and alert in no acute distress. Denies any worsening shortness of breath, cough or congestion. He is maintaining O2 saturation in the mid 90s on 4 L/m per nasal cannula. His been afebrile. Hemodynamically stable. He did undergo a parathyroid nuclear scan this morning. He did undergo a permacath placement yesterday. He was initiated on hemodialysis back on 07/06/2023. He will be on a Thursday schedule. The plan is for discharge to [facility] in [place] and to follow-up in the [facility] hemodialysis center. Pericardial fluid revealed no growth. No malignancy. Blood cultures revealed no growth. Random vancomycin level 24.0. Glucose 76. Remains on vancomycin. Continued on bronchodilators. Reevaluated today on 07/16/23, patient is doing well, does not seem to be in any distress, he is on 3 L nasal cannula with O2 sats is 92%, patient is undergoing hemodialysis, and the patient is being considered for discharge planning today. I'm clearing the patient for discharge if cleared by other consultants Objective - Vital Signs Vital signs: Vital Signs Temp 97.4 F L 07/16/23 13:57 Pulse 65 07/16/23 13:57 Resp 18 07/16/23 13:57 BP 87/61 07/16/23 13:57 Pulse Ox 92 L 07/16/23 13:57 FiO2 50 07/15/23 19:59 Intake & Output 07/15/23 07/16/23 07/16/23 18:59 06:59 18:59 Intake Total 700 400 Output Total 027 452 8706 Balance 054 -[phone] -[phone] Intake: Intake, IV Titration 500 Amount Vancomycin 1,750 mg In 500 Sodium Chloride 0.9% 500 ml 500 ml @ 167 mls/hr IVPB ONCE ONE Rx#: [id number] Oral 200 Hemodialysis 400 Output: Urine 285 300 75 Hemodialysis 2400 Other: Voiding Method Urinal # Bowel Movements 1 ABP, PAP, CO, CI - Last Documented Arterial Blood Pressure 98/49 - Exam Physical Exam: Revealed 73-year-old white male in no distress HEENT:[Neck is supple.] [No neck masses.] [No thyromegaly.] [No JVD.] Chest: [Clear throughout, no crackles, no rhonchi, no wheezes.] Cardiac Exam: [Normal S1 and S2, no S3 gallop, no murmur.] Abdomen: [Soft, nontender, no megaly, no rebound, no guarding, normal bowel sounds.] Extremities: [No clubbing, no edema, no cyanosis.] Neurological Exam: [No focal neurologic deficit.] Alert and oriented 3 psychiatric: Normal mood affect and normal mental status examination - Labs CBC & Chem 7: 07/16/23 11:00 07/14/23 08:45 Labs: Abnormal Lab Results - Last 24 Hours (Table) 07/16/23 Range/Units 11:00 RBC 3.84 L (4.30-5.90) m/uL Hgb 12.5 L (13.0-17.5) gm/dL MCV 103.0 H (80.0-100.0) fL Plt Count 41 L (150-450) k/uL Lymphocytes # 0.7 L (1.0-4.8) k/uL Assessment and Plan Assessment: Impression: Acute on chronic hypoxemic and hypercapnic respiratory failure. Pericardial effusion, S/P pericardial window, Hospital-acquired right lung pneumonia Episodic hypotension, currently on low-dose pressors .The patient was also started on midodrine Chronic Diastolic CHF. Acute on chronic kidney disease. Patient is currently undergoing daily hemodialysis, plan is for permacath placement today Metabolic encephalopathy, improved and the patient is adequately communicating at this point in time. Mental status is appropriate Morbid obesity. Chronic atrial fibrillation, with paroxysmal atrial fibrillation/RVR. Rate is under better control with a combination of amiodarone and metoprolol. Patient is on Eliquis Moderately severe aortic stenosis. Obstructive sleep apnea syndrome. History of alcoholism. Hyperlipidemia. Thrombocytopenia evolved during this current hospitalization. Rule out secondary to sepsis/drug induced. Recommendation: Continue oxygen Patient has home O2 Continue bronchodilators Agree with discharge planning if cleared by other consultants patient will be going to subacute rehab with outpatient hemodialysis Time with Patient: Less than 30
[2023-07-16] MEDS ORDERED: VANCOMYCIN 1,750 MG in SODIUM CHLORIDE 0.9% 500 ML 500 ML IVPB ONE (18:00)
--- NOTE | 2023-07-18 11:47 | IR ---
EXAMINATION TYPE: IR cvc insert central tunneled DATE OF EXAM: 07/14/2023 FLUOROSCOPY Dialysis, 0.3m/1.8934DAP, 14.5F x 23cm RT IJ Dialysis cath. 48 images provided
--- NOTE | 2023-07-18 11:48 | IR ---
EXAMINATION TYPE: IR cvc insert non tunneled DATE OF EXAM: 07/11/2023 FLUOROSCOPY Dialysis, 1.8m/20.0729DAP, Rt groin dialysis cath sutured in. 153 images provided.
--- NOTE | 2023-07-18 17:24 | P.DS ---
Providers Date of admission: 06/26/23 15:21 Attending physician: Patricia Mandujano Consults: 06/26/23 15:21 Consult Physician Routine Consulting Provider: Gayle Galarza Consult Reason/Comments: icu Do you want consulting provider notified?: Yes Consult Physician Routine Consulting Provider: Josr Watkins Consult Reason/Comments: arf,keith Do you want consulting provider notified?: Yes 06/26/23 19:19 Consult Physician Routine Consulting Provider: Estephania Duran Consult Reason/Comments: unequal pupils Do you want consulting provider notified?: Yes, Notify in am 06/26/23 21:53 Consult Physician Routine Consulting Provider: Luis Daniel Houser Consult Reason/Comments: A-fib with RVR Do you want consulting provider notified?: Yes, Notify in am 06/29/23 08:26 Consult Physician Routine Consulting Provider: Keanu Shi Consult Reason/Comments: large pericardial effusion, window procedure and biopsy if possible Do you want consulting provider notified?: Yes 07/06/23 06:20 Consult Physician Routine Consulting Provider: Ruddy Wade Consult Reason/Comments: potential dialysis catheter Do you want consulting provider notified?: Yes Primary care physician: Arron Castro MD Hospital Course: Final Diagnosis Right lower lobe pneumonia Acute hypoxic respiratory failure requiring BiPAP COPD with exacerbation, resolved Acute on chronic diastolic CHF with a preserved ejection fraction Possible acute cholecystitis, versus intra-abdominal infection on broad-spectrum antibiotic, improved Pericardial effusion status post pericardial window for drainage A. fib and RVR Acute kidney injury due to ATN and cardiorenal syndrome chronic kidney disease stage IV Moderate to severe aortic stenosis Hypercalcemia secondary to hyperparathyroidism on treatment Alcohol use disorder Nicotine dependence Chronic hypoxic respiratory failure Morbid obesity with BMI 41.7. Discharge Disposition Patient was therefore discharged home with overall guarded prognosis. Patient needs to refrain from drinking alcohol. He verbalizes understanding of this. Patient to continue with hemodialysis Thursday and has a chair time at [facility] at 10:45 AM. His calcium is currently low and no need to continue the Sensipar on discharge. Eliquis is recommended to be held on discharge secondary to thrombocytopenia and recommended to repeat labs in 2-3 days. Patient requires extensive follow-up including nephrology, relocation manager and his PCP Dr. Matthew Heller. Patient needs to also f/u with general surgeon outpatient for the gallbladder. No recommendations for surgical intervention this admission. Hospital course This is a pleasant 73 years old male with multiple medical problems including Atrial Fibrillation, Heart Failure, COPD, GI Bleed, Hyperlipidemia, Hypertension, chronic kidney disease/CPAP/BIPAP,Hiatal hernia, cateracts, diverticulosis, CPAP use, Falls, he is a current smoker. Patient presents transferred from [facility] for respiratory failure, on arrival he was hypotensive. He was recently in the hospital 06/17-06/19 for hypercalcemia and he was discharged on Sensipar which is thought secondary to hyperparathyroidism. On admission patient was tachycardic and was placed on BiPAP. He was admitted to the intensive care unit and started on vasopressor support for his blood pressure. Patient's had an elevated proBNP of 14,900. He did have an ultrasound also showing an obstructive uropathy with concern for acute cholecystitis with thickened wall. Chest x-ray was concerning for pulmonary edema. Patient does have a history of chronic atrial fibrillation and has been anticoagulated with eliquis outpatient. He was also started on Lasix drip. CT of the brain came back negative for acute process. Chest x-ray follow-up showed cardiomegaly, pulmonary vascular congestion, bilateral pleural effusions, however based on ultrasound, the left-sided pleural effusion was not large enough to consider safe thoracentesis. He was also seen in consultation by cardiothoracic services and underwent pericardial window due to a large pericardial effusion with no moderate to severe aortic valve stenosis and atrial fibrillation with RVR. Patient had 1 L of bloody pericardial fluid aspirated. After review general surgery has signed off and recommended to hold the HIDA scan until patient is more currently stable and will recommend to follow-up outpatient with general surgery. Blood cultures have remained negative. Patient was treated with antibiotics. He was transitioned to oral diuretics and moved to the medical floor. He was started on hemodialysis on 07/06/2023 and will continue on Thursday scheduled on discharge. He is maintained on midodrine and blood pressure stable off pressor support currently at 102/67. Most recent labs showing white count 6.2, hgb 12.5, platlet count 41, sodium 137, potassium 3.5, chloride 97, BUN 11, creatinine 2.72, He currently is awake alert oriented no complaints of pain. He has been cleared by all consultations for discharge. He was considered for subacute rehab however needed peer to peer as he was doing well with physical therapy and at this time will be discharged home with above mentioned recommendations. Family ok with discharge home. Please see medication reconciliation for a list of current medications. Thank you for allowing us to participate in the care of this patient. The impression and plan of care has been dictated by Jasmyn Anderson, Nurse Practitioner as directed. Dr. Leyla MD I have performed a history and physical examination and medical decision making of this patient, discussed the same with the dictator, and agree with the dictators assessment and plan as written, documented as a scribe. Based on total visit time, I have performed more than 50% of this visit. Patient Condition at Discharge: Fair Plan - Discharge Summary Discharge Rx Participant: Yes New Discharge Prescriptions: New Amiodarone [Cordarone] 200 mg PO BID #60 tab Midodrine [ProAmatine] 10 mg PO AC-TID #30 tab Folic Acid 1 mg PO DAILY #30 tab Levofloxacin [Levaquin] 250 mg PO DAILY #2 tab Metoprolol Tartrate [Lopressor] 12.5 mg PO BID #60 tab Sennosides [Senokot] 8.6 mg PO DAILY tab Continue Montelukast [Singulair] 10 mg PO HS Metoprolol Tartrate 25 mg PO TID Ipratropium-Albuterol Nebulize [Duoneb 0.5 mg-3 mg/3 ml Soln] 3 ml INHALATION RT-QID PRN PRN Reason: Shortness Of Breath Albuterol Inhaler [Ventolin Hfa Inhaler] 1 - 2 puff INHALATION RT-Q4H PRN PRN Reason: Shortness Of Breath Gabapentin [Neurontin] 100 mg PO BID@1300,2100 Atorvastatin [Lipitor] 80 mg PO HS Cyanocobalamin (Vitamin B-12) [Vitamin B-12] 1,000 mcg PO HS Torsemide [Demadex] 40 mg PO DAILY 30 Days #30 tablet Thiamine [Vitamin B-1] 100 mg PO DAILY@1200 Ketoconazole 2% Shampoo [Nizoral] 1 applic TOPICAL Q2D allopurinoL [Zyloprim] 100 mg PO HS Gabapentin [Neurontin] 200 mg PO DAILY@0800 Famotidine [Pepcid] 20 mg PO DAILY Budesonide [Pulmicort] 0.5 mg INHALATION RT-BID Omalizumab [Xolair] 300 mg SQ Q28H Discontinued Apixaban [Eliquis] 5 mg PO BID Cinacalcet [Sensipar] 30 mg PO DAILY #60 tab Discharge Medication List Albuterol Inhaler [Ventolin Hfa Inhaler] 1 - 2 puff INHALATION RT-Q4H PRN 08/18/18 [History] Ipratropium-Albuterol Nebulize [Duoneb 0.5 mg-3 mg/3 ml Soln] 3 ml INHALATION RT-QID PRN 08/18/18 [History] Metoprolol Tartrate 25 mg PO TID 08/18/18 [History] Montelukast [Singulair] 10 mg PO HS 08/18/18 [History] Atorvastatin [Lipitor] 80 mg PO HS 02/12/23 [History] Budesonide [Pulmicort] 0.5 mg INHALATION RT-BID 02/12/23 [History] Cyanocobalamin (Vitamin B-12) [Vitamin B-12] 1,000 mcg PO HS 02/12/23 [History] Famotidine [Pepcid] 20 mg PO DAILY 02/12/23 [History] Gabapentin [Neurontin] 100 mg PO BID@1300,2100 02/12/23 [History] Gabapentin [Neurontin] 200 mg PO DAILY@0800 02/12/23 [History] allopurinoL [Zyloprim] 100 mg PO HS 02/12/23 [History] Torsemide [Demadex] 40 mg PO DAILY 30 Days #30 tablet 02/16/23 [Rx] Ketoconazole 2% Shampoo [Nizoral] 1 applic TOPICAL Q2D 06/17/23 [History] Omalizumab [Xolair] 300 mg SQ Q28H 06/17/23 [History] Thiamine [Vitamin B-1] 100 mg PO DAILY@1200 06/17/23 [History] Amiodarone [Cordarone] 200 mg PO BID #60 tab 07/16/23 [Rx] Folic Acid 1 mg PO DAILY #30 tab 07/16/23 [Rx] Levofloxacin [Levaquin] 250 mg PO DAILY #2 tab 07/16/23 [Rx] Metoprolol Tartrate [Lopressor] 12.5 mg PO BID #60 tab 07/16/23 [Rx] Midodrine [ProAmatine] 10 mg PO AC-TID #30 tab 07/16/23 [Rx] Sennosides [Senokot] 8.6 mg PO DAILY tab 07/16/23 [Rx] Follow up Appointment(s)/Referral(s): Nilsa Dominguez MD [STAFF PHYSICIAN] - 1 Week Arron Castro MD [Primary Care Provider] - 1-2 days [facility] [NON-STAFF] - 1 Week ([facility] will call you to arrange a visit) Gayle Galarza MD [STAFF PHYSICIAN] - 08/03/23 1:45 pm Ambulatory/Diagnostic Orders: Basic Metabolic Panel [LAB.AMB] Time Frame: 3 Days, Location: None Selected Complete Blood Count w/diff [LAB.AMB] Location: None Selected Magnesium [LAB.AMB] Location: None Selected Patient Instructions/Handouts: Dialysis Diet (DC), Hemodialysis (DC), Acute Respiratory Failure (GEN) Activity/Diet/Wound Care/Special Instructions: Chair time at [facility] in [facility] for thursday, thursday chair time is at 1045 am need to arrive at 0945 am. Repeat labs in 2 to 3 days No need to continue Sensipar, calcium is actually low now. Discharge Disposition: HOME WITH HOME HEALTH SERVICES
== END 2023-07-16 15:54 | disposition home health service (06) | DRG 871 ==
LOC: EC 12:23 → 2SICU 15:21 → 4SSUR 07-13 15:29
PROVIDERS: ADMIT Hospitalist; ATTEND Hospitalist
PROC: 4A133BC Monitoring of Arterial Pressure, Coronary, Percutaneous Approach (ICD-10-PCS; 2023-06-27)
PROC: 02HV33Z Insertion of Infusion Device into Superior Vena Cava, Percutaneous Approach (ICD-10-PCS; 2023-06-27)
PROC: 3E033XZ Introduction of Vasopressor into Peripheral Vein, Percutaneous Approach (ICD-10-PCS; 2023-06-27)
PROC: 0W9D30Z Drainage of Pericardial Cavity with Drainage Device, Percutaneous Approach (ICD-10-PCS; principal; 2023-06-29)
PROC: 02HV33Z Insertion of Infusion Device into Superior Vena Cava, Percutaneous Approach (ICD-10-PCS; 2023-07-06)
PROC: 5A1D70Z Performance of Urinary Filtration, Intermittent, Less than 6 Hours Per Day (ICD-10-PCS; 2023-07-06)
PROC: 06HY33Z Insertion of Infusion Device into Lower Vein, Percutaneous Approach (ICD-10-PCS; 2023-07-12)
PROC: 06PYX3Z Removal of Infusion Device from Lower Vein, External Approach (ICD-10-PCS; 2023-07-14)
PROC: 02HV33Z Insertion of Infusion Device into Superior Vena Cava, Percutaneous Approach (ICD-10-PCS; 2023-07-14)
DX: A41.9 Sepsis, unspecified organism (principal); G93.41 Metabolic encephalopathy; I50.33 Acute on chronic diastolic (congestive) heart failure; J96.21 Acute and chronic respiratory failure with hypoxia; J96.22 Acute and chronic respiratory failure with hypercapnia; N17.0 Acute kidney failure with tubular necrosis; R57.1 Hypovolemic shock; J18.9 Pneumonia, unspecified organism; J44.0 Chronic obstructive pulmonary disease with (acute) lower respiratory infection; I48.19 Other persistent atrial fibrillation; I13.0 Hypertensive heart and chronic kidney disease with heart failure and stage 1 through stage 4 chronic kidney disease, or unspecified chronic kidney disease; N18.4 Chronic kidney disease, stage 4 (severe); Z68.41 Body mass index [BMI] 40.0-44.9, adult; F10.239 Alcohol dependence with withdrawal, unspecified; J44.1 Chronic obstructive pulmonary disease with (acute) exacerbation; I31.39 Other pericardial effusion (noninflammatory); K81.0 Acute cholecystitis; E87.0 Hyperosmolality and hypernatremia; E87.4 Mixed disorder of acid-base balance; E66.01 Morbid (severe) obesity due to excess calories; E21.0 Primary hyperparathyroidism; I27.20 Pulmonary hypertension, unspecified; D69.6 Thrombocytopenia, unspecified; N13.9 Obstructive and reflux uropathy, unspecified; I08.3 Combined rheumatic disorders of mitral, aortic and tricuspid valves; E03.9 Hypothyroidism, unspecified; D75.89 Other specified diseases of blood and blood-forming organs; T38.0X5A Adverse effect of glucocorticoids and synthetic analogues, initial encounter; E87.5 Hyperkalemia; R47.1 Dysarthria and anarthria; E87.6 Hypokalemia; Y95 Nosocomial condition; F41.9 Anxiety disorder, unspecified; E78.5 Hyperlipidemia, unspecified; G47.30 Sleep apnea, unspecified; G47.33 Obstructive sleep apnea (adult) (pediatric); Z79.01 Long term (current) use of anticoagulants; Z79.899 Other long term (current) drug therapy; Z79.51 Long term (current) use of inhaled steroids; Z79.891 Long term (current) use of opiate analgesic; Z87.891 Personal history of nicotine dependence
CPT/HCPCS: 36410; 36415; 36558; 36580; 36600; 70450; 71045; 75825; 76604; 76770; 76937; 77001; 78070; 80048; 80051; 80053; 80076; 80202; 81001; 82150; 82465; 82607; 82746; 82803; 82805; 82945; 83519; 83605; 83615; 83690; 83735; 83880; 84100; 84132; 84145; 84157; 84295; 84439; 84443; 84484; 85025; 85027; 85610; 85730; 86022; 86706; 86850; 86900; 86901; 87040; 87070; 87075; 87102; 87116; 87205; 87206; 87324; 87340; 87496; 87498; 87529; 87798; 88108; 88305; 89050; 90935; 93005; 93306; 93308; 93880; 94640; 94660; 94760; 96361; 96374; 99211; 99291